=== PATIENT | male | born 1945 | race Caucasian/White ===

== ENCOUNTER → 2018-05-12 16:18 | Outpatient (CLI) | payer MEDICARE, SELFPAY ==
--- NOTE | 2018-05-12 | COLBX_PTH ---
PATIENT: DAFNE OBANDO LOC: [facility] U#:[id number] AGE/SX: 79/M ROOM: RE05/12/[address]: Dr. Andrea Hutchins MD : 1945 BED: DIS: SPEC #: [id number] RECD: 05/12/18 16:00 STATUS: LEX MELQUIADES #: [id number] EDVIN: 05/12/18 00:[address]: Andrea Hutchins DEPT: SURGICAL PATHOLOGY RECD BY: Dallas Wilhelm ENTERED: 05/15/18 10:18 SP TYPE: COLON BX SHELLIE DR: Dr. Kelly Vargas, [facility] Tissues: A - Sigmoid colon biopsy B - Right colon C - Descending colon D - COLON BIOPSY Procedures: Surgery Specimen Level IV HEADER OPERATION: Colonoscopy with polypectomy PRE-OP DIAGNOSIS: Screening/polyps; rule out adenoma TISSUE SUBMITTED: A. Sigmoid polyps, B. Right colon polyps, C. Descending/transverse colon polyps, D. Colon mass biopsies, hepatic flexure MICROSCOPIC DIAGNOSIS A. Sigmoid colon polyps, biopsy: Fragments of tubular adenoma. B. Right colon polyps, biopsy: Fragments of tubular adenoma. C. Descending/transverse colon polyps, biopsy: Fragments of tubular adenoma. Fragments of hyperplastic polyp. D. 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 See Comment. AM:beth 05/16/18 COMMENT C. The findings are consistent with focal high-grade dysplasia. In situ carcinoma cannot be excluded. The focus of high-grade dysplasia is minute. Clinical correlation is suggested. Immunohistochemistry ([id number]) supports the above diagnosis. Case has been reviewed in consultation with Dr. Bingham who concurs with the above diagnosis. IDC:CE MICROSCOPIC DESCRIPTION Slides are reviewed. GROSS DESCRIPTION A - Received in fixative is one container labeled with the patient's name and designated sigmoid polyp. The specimen consists of two irregular fragments of light matthews soft tissue that in aggregate measure 1 x 0.5 x 0.3 cm. The specimen is totally submitted in one cassette. B - Received in fixative is one container labeled with the patient's name and designated right colon polyp. The specimen consists of three irregular fragments of light matthews soft tissue that in aggregate measure 1.2 x 0.6 x 0.3 cm. The larger fragments are bisected and submitted along with the smaller fragment in one cassette. C - Received in fixative is one container labeled with the patient's name and designated descending/ transverse colon polyp. The specimen consists of multiple irregular fragments of light matthews soft tissue that in aggregate measure 1 x 0.5 x 0.2 cm. The largest fragment is bisected and submitted along with the smaller fragments in one cassette. D - Received in fixative is one container labeled with the patient's name and designated mass at hepatic flexure. The specimen consists of multiple irregular fragments of light matthews soft tissue that in aggregate measure 1.2 x 0.6 x 0.1 cm. The specimen is totally submitted in one cassette. / AM:rg 05/15/18 TC:0 CPT: 32922 x4
--- NOTE | 2018-05-12 | IMM_PTH ---
PATIENT: DAFNE OBANDO LOC: [facility] U#:[id number] AGE/SX: 79/M ROOM: RE05/12/[address]: Dr. Andrea Hutchins MD : 1945 BED: DIS: SPEC #: [id number] RECD: 05/17/18 13:09 STATUS: LEX RECourtney #: [id number] EDVIN: 05/12/18 00:[address]: Andrea Hutchins DEPT: IMMUNOHISTOCHEMISTRY RECD BY: Brisa Riggs ENTERED: 05/17/18 13:12 SP TYPE: IMMUNO OTHR DR: Dr. Kelly Vargas, Tissues: D - COLON BIOPSY Procedures: P53 (initial) KI-67 (add) PHYSICIAN & INSTITUTION [place] [id number] SPECIMEN INFORMATION: Tissue Source: D - Colon mass at hepatic flexure, biopsy Clinical Info: Screening / polyps Specimen Number: [id number] CPT code: 57168, 17051 METHODOLOGY: Deparaffinized sections of prefer/formalin-fixed tissue or PAP/DQ stained slides are incubated with monoclonal/polyclonal antibodies/oligonucleotide probes. Localization is made via biotin free immunoperoxidase method. Appropriate controls are performed and reacted as expected. Results on target cell population are indicated in the following table: RESULTS: ANTIBODY / CLONE RESULT Block D P53 (DO-7) positive Ki-67 (30-9) positive These tests were developed and their performance characteristics determined by [facility]. They may not have been cleared or approved by the [place] Food and Drug Administration. The FDA has determined that such clearance or approval is not necessary. INTERPRETATION: D. Colon mass at hepatic flexure, biopsy: Consistent with focal high grade dysplasia. AM:beth 05/18/18
--- OUTSIDE RECORDS SUMMARY | 2018-07-17 07:37 | XMS RPT_ITS | Continuity of Care Document ---
:1945 Author Organization [facility] Address [address] [facility] [address] [place] [address] Phone Care Team Providers Name Role Phone Kelly Vargas DO Unavailable Mamie Clau Unavailable [facility] Unavailable Donaldo Burnham MD Unavailable [facility] Unavailable Luis, SCHUYLER Robb Unavailable Unavailable Long Cherie PAYAN Unavailable Unavailable Gricelda Freitas Unavailable Unavailable Yamila Keller Unavailable Unavailable Unavailable Unavailable Problems Name Dates Details Acute pain of right shoulder (M25.511, 719.41) Status: Active Annual Medicare Phyiscal WITHOUT abnormal findings (Renamed from Encounter for general adult medical examination without abnormal findings) (Z00.00, V70.9) Status: Active BMI 29.0-29.9,adult (Z68.29, V85.25) Status: Active BMI 30.0-30.9,adult (Z68.30, V85.30) Status: Active BMI 33.0-33.9,adult (Z68.33, V85.33) Status: Active Body mass index 30.0-30.9, adult (Z68.30, V85.30) Status: Active Body mass index 33.0-33.9, adult (Z68.33, V85.33) Status: Active Body mass index 33.0-33.9, adult (Renamed from Body mass index (BMI) of 33.0-33.9 in adult) (Z68.33, V85.33) Status: Active Carcinoma in situ of skin, 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, 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) Status: Active Chronic sinusitis, unspecified location (J32.9, 473.9) Status: Active Complex regional pain syndrome type 1 of right lower extremity (G90.521, 337.22) Status: Active Depression, acute (F32.9, 296.20) Comments: stable Status: Active Diabetes mellitus out of control (E11.65, 250.02) Comments: IR score 89 Status: Active Diabetes type II, uncontrolled, renal comp (250.42) Comments: but improving Status: Active Dysmetabolic syndrome X (E88.81, 277.7) Status: Active Encounter for screening for malignant neoplasm of colon (Renamed from Special screening for malignant neoplasms, colon) (Z12.11, V76.51) Comments: cologard ordered Status: Active Encounter for screening for malignant neoplasm of colon (Renamed from Special screening for malignant neoplasms, colon) (Z12.11, V76.51) Status: Active Encounter for screening for malignant neoplasm of prostate (Renamed from Screening for prostate cancer) (Z12.5, V76.44) Comments: [facility] follows lab Status: Active Family history of diabetes mellitus (Z83.3, V18.0) Status: Active Hematuria (R31.9, 599.7) Comments: from chemo with bladder ca tx Status: Active Hypercholesteremia (E78.00, 272.0) Status: Active 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, 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) Status: Active Hypoglycemia (E16.2, 251.2) Status: Active Insomnia (G47.00, 780.52) Comments: i suspect from adrenal taxed -- disucssed dietary adrenal rest - and try wean off klonopin and try otc advil pm / tylenol pm or benadryl first if no work set up appt to disucss more rx vs intergravftive options Status: Active Leg injury, right, subsequent encounter (S89.91XD, V58.89) Status: Active Leukocytosis, unspecified type (D72.829, 288.60) Status: Active Male erectile dysfunction, unspecified (N52.9, 607.84) Status: Active NEED FOR PROPHYLACTIC VACCINATION AND INOCULATION AGAINST INFLUENZA (V04.81) (Renamed from Need for prophylactic vaccination and inoculation against influenza) (Z23, V04.81) Status: Active NEOP, NOS, BLADDER (239.4) Status: Active Non morbid obesity, unspecified obesity type (E66.9, 278.00) Status: Active Non morbid obesity, unspecified obesity type (E66.9, 278.00) Status: Active Non-smoker (Z78.9, V49.89) Status: Active Numbness and tingling of left leg (782.0) Status: Active Nutritional counseling (Z71.3, V65.3) Status: Active Obesity, morbid (E66.01, 278.01) Status: Active Olecranon bursitis of left elbow (M70.22, 726.33) Status: Active Olecranon bursitis, left elbow (M70.22, 726.33) Comments: traumatic -- bloody effusion tapped adn drained - 10CC+ Status: Active Physical exam WITHOUT abnormal findings (Renamed from Encounter for routine adult health examination without abnormal findings) (Z00.00, V70.0) Status: Active Pipe smoker motivated to quit (F17.290, 305.1) Status: Active Stress reaction (F43.0, 308.9) Comments: shut off benefits and have him goijng to pain management and pysch-- he is debilitated and disabled all spiraled from this incident and multiple surgeries - Status: Active Stress reaction (F43.0, 308.9) Comments: support and enc given Status: Active Tobacco abuse counseling (Z71.6, V65.42) Status: Active Tremor (R25.1, 781.0) Comments: BET - Status: Active Type 2 diabetes mellitus, controlled, 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, 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) Status: Active Unspecified Diagnosis Status: Active Vitamin D deficiency (E55.9, 268.9) Status: Active Medications Name Dates Details ASPIRIN EC, 325MG (Oral Tablet Delayed Release) Active 1 qd (325 MG) Easy Touch Insulin Syringe 28G X 1/2 0.5 ML Miscellaneous 1 (one) Misc Misc tid for 30 days Quantity: 100 {Each} Refills: 11 Ordered:25-Sep-2015 Clarisse Smith SCHUYLER Start : 25-Sep-2015 Active Comments:E11.65 EASY TOUCH LANCETS 30G (Miscellaneous) 1 (one) Misc Misc up to qid for 0 days Quantity: 3 {Package} Refills: 3 Ordered:31-Jan-2015 Shamar Vargas DO, DO, Kathleen Start : 31-Jan-2015 Active Comments:E11.65 Easy Touch Test In Vitro Strip 1 (one) Strip Strip up to qid for 0 days Quantity: 120 {Strip} Refills: 0 Ordered:27-Apr-2016 Yamila Keller Start : 27-Apr-2016 Active Comments:E11.65 FINASTERIDE, 5MG (Oral Tablet) 1 qd (5 MG) Active Fish Oil Double Strength 1200 MG Oral Capsule 2 (two) Capsule qd for 360 days Quantity: 810 {Capsule} Refills: 0 Ordered:02-Jun-2017 Shamar Vargas DO, DO, Kathleen Start : 02-Jun-2017 Active Comments:new dose GARLIC OIL, 1000MG (Oral Capsule) 3 qd (1000 MG) Active LYRICA, 100MG (Oral Capsule) uad 1 tid (100 MG) Active MetFORMIN HCl ER 750 MG Oral Tablet Extended Release 24 Hour 1 (one) Tablet ER 24HR tid for 0 days Quantity: 270 {Tablet} Refills: 3 Ordered:19-Dec-2017 Shamar Vargas DO, DO, Kathleen Start : 19-Dec-2017 Active Norvasc 5 MG Oral Tablet 1 Tablet daily for 0 days Quantity: 90 {Tablet} Refills: 3 Ordered:23-Mar-2018 Shamar Vargas DO, DO, Kathleen Start : 23-Mar-2018 Active Nucynta 50 MG Oral Tablet 1 (one) Tablet bid for 30 days Quantity: 60 {Tablet} Refills: 0 Ordered:15-Apr-2017 Audrey PRYOR Daphnie Start : 15-Apr-2017 Active Pen [place] /16 31G X 5 MM Miscellaneous 1 (one) Misc Misc 4times daily for 0 days Quantity: 2 {Box} Refills: 3 Ordered:19-Dec-2015 Shamar Vargas DO, DO, Kathleen Start : 19-Dec-2015 Active Primidone 50 MG Oral Tablet 2 (two) Tablet tid for 0 days Quantity: 270 {Tablet} Refills: 0 Ordered:02-May-2018 Shamar Vargas DO, DO, Kathleen Start : 02-May-2018 Active Simvastatin 80 MG Oral Tablet 1 Tablet qd for 0 days Quantity: 90 {Tablet} Refills: 3 Ordered:14-Mar-2018 Shamar Vargas DO, DO, Kathleen Start : 14-Mar-2018 Active Comments:new dose VIAGRA, 100MG (Oral Tablet) uad Tablet prn for 0 days Quantity: 10 {Tablet} Refills: 3 Ordered:17-May-2013 Shamar Vargas DO, DO, Kathleen Start : 17-May-2013 Active VITAMIN D3, 3000UNIT (Oral Tablet) 2 qd (3000 UNIT) Active Xultophy 100-3.6 UNIT-MG/ML Subcutaneous Solution Pen-injector 35 Unit Unit qd for 0 days Quantity: 3 {Box} Refills: 0 Ordered:30-Jan-2018 Clarisse Smith LPN Start : 09-Jan-2018 Active 1st Tier Unifine Pentips Plus 31G X 6 MM Miscellaneous 1 (one) Misc Misc qd for 0 days Quantity: 1 {Box} Refills: 2 Ordered:22-Dec-2016 UNRULY Lei Start : 30-Apr-2014 End : 22-Dec-2016 Inactive Comments:to be used with his pens victoza and byduren Abilify 2 MG Oral Tablet 1 (one) Tablet Tablet qd for 30 days Refills: 0 Ordered:18-Nov-2016 Cherie Jimenez LPN Start : 13-Sep-2014 End : 18-Nov-2016 Inactive ACTOS, 15MG (Oral Tablet) 1 (one) Tablet qd for 30 days Quantity: 30 {Tablet} Refills: 3 Ordered:21-May-2014 Shamar Vargas DO, DO, Kathleen Start : 21-May-2014 End : 21-May-2014 Inactive Comments:pt has bladder ca Adipex-P 37.5 MG Oral Tablet 1 (one) Tablet qam for 0 days Quantity: 30 {Tablet} Refills: 0 Ordered:26-Feb-2016 Clarisse Smith LPN Start : 25-Sep-2015 End : 26-Feb-2016 Inactive Comments:thirtyBMI 34.5BMI 33.57 Afrezza 4 & 8 & 12 UNIT Inhalation Powder 1 (one) Powder AC for 0 days Quantity: 1 {Box} Refills: 2 Ordered:09-Jan-2018 Shamar Vargas DO, DO, Kathleen Start : 09-Jan-2018 End : 09-Jan-2018 Inactive Comments:bs ac <200 use 4units bs ac 201-250 8 units bs ac 251-300 12 units AMARYL, 1MG (Oral Tablet) 1 Tablet bid for 0 days Quantity: 60 {Tablet} Refills: 4 Ordered:17-May-2013 UNRULY Lei Start : 06-Nov-2010 End : 17-May-2013 Inactive AMARYL, 4MG (Oral Tablet) 1 (one) Tablet bid for 0 days Quantity: 180 {Tablet} Refills: 3 Ordered:10-Apr-2015 Clarisse Smith LPN Start : 13-Sep-2014 End : 10-Apr-2015 Inactive AUGMENTIN, 875-125MG (Oral Tablet) 1 (one) Tablet bid for 0 days Quantity: 20 {Tablet} Refills: 0 Ordered:18-Aug-2015 Clarisse Smith LPN Start : 03-Apr-2015 End : 18-Aug-2015 Inactive AVANDIA, 2MG (Oral Tablet) 1 (one) Tablet qd for 0 days Quantity: 30 {Tablet} Refills: 3 Ordered:12-Apr-2014 Clarisse Smith LPN Start : 11-Apr-2014 End : 12-Apr-2014 Inactive Basaglar KwikPen 100 UNIT/ML Subcutaneous Solution Pen-injector 25 Unit qhs for 30 days Quantity: 1 {Box} Refills: 7 Ordered:01-Jul-2017 Shamar Vargas DO, DO, Kathleen Start : 01-Jul-2017 End : 01-Jul-2017 Inactive Comments:in place of lantus BENZONATATE, 200MG (Oral Capsule) 1 (one) Capsule Capsule qd for 30 days Quantity: 30 {Capsule} Refills: 3 Ordered:18-Aug-2015 Clarisse Smith LPN Start : 03-Apr-2015 End : 18-Aug-2015 Inactive BUTRANS, 10MCG/HR (Transdermal Patch Weekly) 1 Patch Weekly q week for 30 days Refills: 0 Ordered:21-Feb-2014 Clarisse Smith LPN Start : 31-Aug-2012 End : 21-Feb-2014 Inactive CARDURA, 4MG (Oral Tablet) 1 qd (4 MG) Inactive Cefadroxil 500 MG Oral Capsule 1 (one) Capsule bid for 7 days Quantity: 14 {QS} Refills: 0 Ordered:06-Oct-2016 Sharon Ventura CNP Start : 06-Oct-2016 End : 13-Oct-2016 Inactive CLONIDINE HCL, 0.1MG (Oral Tablet) 1 (one) Tablet x 1 for 0 days Refills: 0 Ordered:26-Jun-2007 Clarisse Smith LPN Start : 26-Jun-2007 End : 13-Feb-2009 Inactive Comments:given in office CRESTOR, 10MG (Oral Tablet) 1 (one) Tablet Daily for 0 days Quantity: 30 {Tablet} Refills: 3 Ordered:28-Apr-2009 Clarisse Smith LPN Start : 21-Apr-2009 Inactive Comments:OK for generic Cymbalta 60 MG Oral Capsule Delayed Release Particles 1 (one) Capsule DR Part bid for 30 days Refills: 0 Ordered:15-Apr-2017 Margo Mac Start : 13-Sep-2014 End : 15-Apr-2017 Inactive Doxycycline Monohydrate 100 MG Oral Capsule 1 (one) Capsule Capsule PO Q 12H for 10 days Quantity: 20 {Capsule} Refills: 0 Ordered:27-Sep-2017 Clarisse Smith LPN Start : 27-Sep-2017 End : 07-Oct-2017 Inactive Easy Touch Glucose System w/Device Kit 1 (one) Kit Kit qd for 0 days Quantity: 1 Kit Refills: 0 Ordered:22-Dec-2016 UNRULY Lei Start : 16-Aug-2013 End : 22-Dec-2016 Inactive FreeStyle Lancets Miscellaneous 1 Misc qid for 0 days Quantity: 200 {Unspecified} Refills: 3 Ordered:15-Apr-2017 Margo Mac Start : 17-May-2013 End : 15-Apr-2017 Inactive Comments:DX: 250.2 FreeStyle Lite Test In Vitro Strip 1 Strip qid for 0 days Quantity: 200 {Strip} Refills: 3 Ordered:15-Apr-2017 Margo Mac Start : 17-May-2013 End : 15-Apr-2017 Inactive Comments:250.02 GABAPENTIN, 100MG (Oral Capsule) 1 (one) Capsule Capsule qhs for 5 days then 2 qhs for 5 days then1 am and 2 qhs for 0 days Quantity: 90 {Capsule} Refills: 0 Ordered:13-Sep-2014 Clarisse Smith LPN Start : 11-Apr-2014 End : 13-Sep-2014 Inactive INVOKANA, 100MG (Oral Tablet) 1 (one) Tablet qd for 30 days Quantity: 30 {Tablet} Refills: 3 Ordered:22-May-2014 Clarisse Smith LPN Start : 21-May-2014 End : 22-May-2014 Inactive Comments:inplace of actos KlonoPIN 1 MG Oral Tablet 1 (one) Tablet qhs for 30 days Quantity: 30 {Tablet} Refills: 0 Ordered:15-Apr-2017 Margo Mac Start : 20-Mar-2014 End : 15-Apr-2017 Inactive Lantus SoloStar 100 UNIT/ML Subcutaneous Solution Pen-injector 30 Soln Pen-inj bid for 0 days Quantity: 2 {Box} Refills: 2 Ordered:09-Jan-2018 Shamar Vargas DO, DO, Kathleen Start : 09-Jan-2018 End : 09-Jan-2018 Inactive Comments:new dose-- bc od [address] had samples of others LEVAQUIN, 500MG (Oral Tablet) 1 (one) Tablet Daily for 0 days Quantity: 10 {Tablet} Refills: 0 Ordered:06-Jun-2007 Clarisse Smith LPN Start : 06-Jun-2007 End : 19-Jun-2007 Inactive MORPHINE SULFATE ER, 15MG (Oral Tablet Extended Release) 1 (one) Tablet ER bid for 30 days Refills: 0 Ordered:20-Mar-2014 Clarisse Smith LPN Start : 21-Feb-2014 End : 20-Mar-2014 Inactive MULTI-DAY (Oral Tablet) 1 qd Inactive NovoLOG FlexPen 100 UNIT/ML Subcutaneous Solution Pen-injector 14 Soln Pen-inj immediatlely prior to eating meals tid for 0 days Quantity: 1 {Box} Refills: 3 Ordered:09-Jan-2018 Shamar Vargas DO, DO, Kathleen Start : 09-Jan-2018 End : 09-Jan-2018 Inactive Comments:changed by j[facility]aira 03/29/[facility] Phentermine HCl 37.5 MG Oral Tablet 1 (one) Tablet Tablet qd for 30 days Quantity: 30 {Tablet} Refills: 0 Ordered:27-May-2016 Shamar Vargas DO, DO, Kathleen Start : 27-May-2016 End : 26-Jun-2016 Inactive Comments:BMI 33.91BMI 32thirty PROSCAR, 5MG (Oral Tablet) 1 qd for 0 days Refills: 0 Ordered:17-Mar-2009 Clarisse Smith LPN End : 17-Mar-2009 Inactive TANZEUM, 30MG (Subcutaneous Pen-injector) 30 Milligram Milligram SC once weekly for 0 days Quantity: 1 {Pre-filled_Pen_Syringe} Refills: 5 Ordered:10-Apr-2015 Shamar Vargas DO, DO, Kathleen Start : 10-Apr-2015 End : 10-Apr-2015 Inactive Comments:DX: 250.02NPI: [phone] TRAMADOL HCL, 50MG (Oral Tablet) 1 q 6 hours prn (50 MG) Inactive Tresiba FlexTouch 200 UNIT/ML Subcutaneous Solution Pen-injector 55 Soln Pen-inj qd for 0 days Quantity: 1 {Box} Refills: 0 Ordered:15-Apr-2017 Margo Mac Start : 29-Apr-2016 End : 15-Apr-2017 Inactive VICTOZA, 18MG/3ML (Subcutaneous Solution Pen-injector) tad Soln Pen-inj qd for 0 days Quantity: 1 {Package} Refills: 3 Ordered:20-Mar-2014 Clarisse Smith LPN Start : 20-Mar-2014 End : 20-Mar-2014 Inactive Comments:0.6 sc qd for one week then 1.2 sc qd for one week then 1.8 sc qd Zithromax Z-Jed 250 MG Oral Tablet 1 (one) Tablet Tablet qd for 0 days Quantity: 1 {Package} Refills: 0 Ordered:14-Apr-2016 Rajiv Gomez Start : 08-Jan-2016 End : 14-Apr-2016 Inactive BYDUREON, 2MG (Subcutaneous Suspension Reconstituted) 1 (one) For Suspension For Suspension qweek for 0 days Quantity: 4 Kit Refills: 4 Ordered:26-Dec-2014 SamShamar mcneill DO, DO, Kathleen Start : 26-Dec-2014 End : 26-Dec-2014 Discontinued BYETTA 10 MCG PEN, 10MCG/0.04ML (Subcutaneous Solution Pen-injector) 1 (one) Soln Pen-inj bid for 30 days Quantity: 1 {Package} Refills: 3 Ordered:11-Apr-2014 Shamar Vargas DO, DO, Kathleen Start : 11-Apr-2014 End : 11-Apr-2014 Discontinued Jardiance 25 MG Oral Tablet 1 (one) Tablet qd for 0 days Quantity: 30 {Tablet} Refills: 3 Ordered:08-Sep-2017 Shamar Vargas DO, DO, Kathleen Start : 08-Sep-2017 End : 08-Sep-2017 Discontinued Comments:saw no improvement in sugars Lasix 20 MG Oral Tablet 1 (one) Tablet Tablet qd for 0 days Quantity: 30 {Tablet} Refills: 3 Ordered:06-Oct-2016 Gayle Andres LPN Start : 11-Sep-2015 End : 06-Oct-2016 Discontinued LISINOPRIL, 20MG (Oral Tablet) 1 (one) Tablet daily for 0 days Quantity: 30 {Tablet} Refills: 3 Ordered:10-Aug-2010 Shamar Vargas DO, DO, Kathleen Start : 10-Aug-2010 End : 10-Aug-2010 Discontinued Comments:cough -- rise in cr ? is this the etiology NIASPAN, 500MG (Oral Tablet Extended Release) 1 Tablet ER qd for 0 days Quantity: 90 {Tablet_ER} Refills: 3 Ordered:20-Jun-2009 Shamar Vargas DO, DO, Kathleen Start : 20-Jun-2009 End : 20-Jun-2009 Discontinued NOVOLOG, 100UNIT/ML (Subcutaneous Solution) 5 units each meal for 0 days Quantity: 1 {Box} Refills: 3 Ordered:05-Jun-2015 Daniela Aiken LPN Start : 04-Jun-2015 End : 05-Jun-2015 Discontinued PEN NEEDLES 1/2, 29G X 12MM (Miscellaneous) 4 Misc qd for 0 days Quantity: 2 {Fluid_Ounce} Refills: 3 Ordered:07-Feb-2015 Shamar Vargas DO, DO, Kathleen Start : 07-Feb-2015 End : 07-Feb-2015 Discontinued Comments:dx DM - tests qid PredniSONE 20 MG Oral Tablet 1 (one) Tablet qd for 0 days Quantity: 6 {Tablet} Refills: 0 Ordered:06-Oct-2016 Gayle Andres LPN Start : 20-May-2016 End : 06-Oct-2016 Discontinued Allergies and Adverse Reactions Name Dates Details Lisinopril *ANTIHYPERTENSIVES* Status: Active (Allergy) Comments: cough -- see patient message 4.25.14 No Known Allergies (Allergy) Onset: 12-Feb-2013 Status: Inactive Vicodin (Allergy) Status: Active Comments: sick Past Medical History Name Dates Details Abnormal EKG (R94.31, 794.31) Comments: pt hi risk with dm -- ekg from last visit shows nonspecific st flattening -- but hi risk and multiple surgeries facing him so want to look at heart with all that stres Status: Inactive as of 17-Feb-2017 Abnormal glucose tolerance test (R73.09, 790.22) Status: Inactive as of 26-Dec-2014 Acute bronchitis due to other specified organisms (J20.8, 466.0) Status: Resolved as of 11-Aug-2015 Backache (M54.9, 724.5) Status: Inactive as of 17-Feb-2017 Benign essential hypertension (I10, 401.1) Status: Inactive as of 01-Sep-2011 BMI 30.0-30.9,adult (Z68.30, V85.30) Status: Inactive as of 17-Feb-2017 BMI 32.0-32.9,adult (Z68.32, V85.32) Status: Inactive as of 17-Feb-2017 Burn of lower extremity, right, unspecified degree, initial encounter (T24.001A, 945.00) Comments: plate of yolande on leg3rd degree burn Status: Inactive as of 17-Feb-2017 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, 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) Status: Resolved as of 01-Sep-2011 Chronic kidney disease, stage III (moderate) (N18.3, 585.3) Status: Resolved as of 01-Sep-2011 Cough (R05, 786.2) Status: Resolved as of 30-Dec-2011 Edema extremities (R60.0, 782.3) Status: Resolved as of 27-May-2017 Elevated blood pressure reading (R03.0, 796.2) Status: Inactive as of 09-Jan-2018 Encounter for Medicare annual wellness exam (Z00.00, V70.0) Status: Inactive as of 11-Aug-2015 Hematoma and contusion (T14.8XXA, 924.9) Status: Resolved as of 09-Jan-2018 Hyperkalemia (E87.5, 276.7) Status: Inactive as of 29-Apr-2016 Hypoglycemia (E16.2, 251.2) Status: Inactive as of 29-Apr-2016 Leg injury, right, initial encounter (S89.91XA, 959.7) Status: Resolved as of 03-Oct-2017 Leg injury, right, subsequent encounter (S89.91XD, V58.89) Status: Inactive as of 09-Jan-2018 Limb pain (M79.609, 729.5) Comments: foot pain - other limb pain from compensation -- 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 Status: Inactive as of 04-Jul-2015 Muscle cramps (R25.2, 729.82) Comments: ck lab Status: Inactive as of 04-Jul-2015 Need for vaccination against Streptococcus pneumoniae (Z23, V03.82) Status: Inactive as of 11-Aug-2015 Physical exam WITH abnormal findings (Renamed from Encounter for general adult medical examination with abnormal findings) (Z00.01, V70.0) Status: Inactive as of 11-Aug-2015 Screening PSA (prostate specific antigen) (Z12.5, V76.44) Status: Inactive as of 11-Aug-2015 Sinusitis, acute (J01.90, 461.9) Status: Resolved as of 11-Aug-2015 Wound of right leg (S81.801A, 891.0) Status: Resolved as of 09-Jan-2018 Procedures Procedure Dates Details Bladder cancer sx Completed Comments: 10/03 Bladder sx Completed Comments: Colonoscopy Completed Comments: 05/01 Right tendon sx Completed Comments: Date Value Details 16-Nov-2016 Wound Ctr History AND Physical Result: Comments: See Note; NOTES: [facility] [address] [place] [address] Wound Ctr History AND Physical 07/25/17 1656 MR#: [id number] Acct: [id number] Name: PERRY ROCA Rep #: [id number] : 1945 71 From: Juan J Edwards MD PCP: Kelly Vargas DO Status: REG RCR Y Location: WC (1) Burn of thigh Status: Acute Current Visit: Yes Qualifiers: Encounter type: initial encounter Laterality: right Code(s): T24.019A - BURN OF UNSPECIFIED DEGREE OF UNSPECIFIED THIGH, INIT ENCNTR (2) BPH (benign prostatic hyperplasia) Status: Chronic Current Visit: No (3) Hyperlipemia Status: Chronic Current Visit: No Code(s): E78.5 - HYPERLIPIDEMIA, UNSPECIFIED (4) Hypertension Status: Chronic Current Visit: No Qualifiers: Hypertension type: essential hypertension Qual ified Code(s): I10 - Essential (primary) hypertension Code(s): I10 - ESSENTIAL (PRIMARY) HYPERTENSION (5) Type II diabetes mellitus Status: Chronic Current Visit: No Code(s): E11.9 - TYPE 2 DIABETES ME LLITUS WITHOUT COMPLICATIONS (6) Tobacco abuse Status: Chronic Current Visit: Yes Code(s): Z72.0 - TOBACCO USE (7) Tobacco abuse counseling Status: Chronic Current Visit: Yes Code(s): Z71.6 - TOBACCO ABUSE COUNSELING History of Present Illness Date of Service: 11/16/16 Chief Complaint: Burn wound to the right thigh History of Wound: Patient is a very pleasant 71-year-old male who is here for follow -up evaluation and treatment of burn wound to his right thigh. This occurred approximately 7 weeks ago. He has been treating it with collagen hydrogel and Adaptic in recent weeks. He had a reactive cell ulitis that was treated with an antibiotic, which resolved. The patient has shown good progress, and the thermal burn to the right upper thigh is now completely healed and epithelialized. 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 Allergies/Adverse Reactions: All ergies Sulfa (Sulfonamide Antibiotics) Allergy (Verified 11/13/13 18:04) Hives acetaminophen [From Vicodin] Adverse Reaction (Verified 02/03/15 14:00) Nausea hydrocodone bitartrate [From Vicodin] Adver se Reaction (Verified 02/03/15 14:00) Nausea topiramate [From Topamax] Adverse Reaction (Verified 11/13/13 18:04) memory loss Home Medications: Ambulatory Orders Medication Instruct ions Recorded Amlodipine [Norvasc] 5 mg PO DAILY 11/10/13 Finasteride 5 mg PO DAILY 11/10/13 Metformin HCl [Metformin HCl ER] 750 mg PO TID 11/10/13 Simvastatin 40 mg PO DAILY 11/10/13 Aspirin 325 mg P O DAILY@0800 11/11/13 Ibuprofen [Motrin] 800 mg PO BID 11/11/13 Duloxetine Hcl [Cymbalta] 60 mg PO DAILY 02/03/15 Insulin Lispro [Humalog Kwikpen] 10 unit SQ TID 02/03/15 Primidone [Mysoline] 100 mg PO TID 02/03/15 Aripiprazole [Abilify] 2 mg PO DAILY 10/12/16 Cholecalciferol (Vitamin D3) 3,000 unit PO BID 10/12/16 [Vitamin D3] Clonazepam [Klonopin] 1 mg PO QHS 10/12/16 Fish Oil/Dha/Epa [Fish Oil 1, 200 1 each PO BID 10/12/16 mg Fish Oil] Garlic 3,000 mg PO DAILY 10/12/16 Insulin Degludec [Tresiba 55 unit SQ DAILY 10/12/16 Flextouch U-200] Insulin Glargine [Lantus (BKC)] 45 units SC QHS 10/12/16 P regabalin [Lyrica] 100 mg PO TID 10/12/16 Tapentadol HCl [Nucynta] 100 mg PO BID 10/12/16 - Family History Maternal No pertinent history Paternal No pertinent history Sibling No pertinent history Smoking Status: Current every day smoker Tobacco Use: Pipe Review of Systems Constitutional: Denies: Chills, Fever, Weight Change Eyes: Denies: Pain, Vision Change HEENT: Denies: Difficulty Hea ring, Difficulty Swallowing, Sinus Congestion Cardiovascular: Denies: Chest Pain, Palpitations Respiratory: Denies: Cough, Shortness of Breath Gastrointestinal: Denies: Diarrhea, Nausea, Vomiting Genito urinary: Denies: Dysuria, Hematuria Endocrine: Denies: Heat/ Cold Intolerance, Polydipsia, Polyuria Hematologic/ Lymphatic: Denies: Easy Bruising, Easy Bleeding - Physical Exam Vital Signs Temp Pulse Resp BP Pulse Ox 97.8 F 85 18 156/97 11/16/16 16:26 11/16/16 16:26 11/16/16 16:26 11/16/16 16:26 General: Alert, Oriented x3, Cooperative, No apparent distress, Well developed, Well nourished HEENT: A traumatic, PERRLA, EOMI, Normocephalic Oral: Moist Mucosa Neck: No JVD Lungs: Normal air movement Abdomen: Non-Distended, Obese Extremities: No clubbing, No cyanosis, No edema, No Calf Tenderness, - - T he burn wound on the right thigh is now completely healed and epithelialized. There is no sign of infection or cellulitis. Skin: No rashes, No breakdown Wound Measurements and Assessment WC - Nurse 1 - General Ulcer Measurement Start: 11/02/16 08:39 Freq: Status: Active Activity Type Activity Date Activity User E-Sign Co-Sign Detail Recorded Client Recorded Date Recorded By Document 11/16/16 16:26 DL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 There is osseous productivity extending into the axillary recess. There is mild narrowing of the acromiohumeral space. Normal acromioclav icular joint. Normal acromion. There is no acute fracture, dislocation or destructive osseous pathology. There is flattening of the humeral head with sclerosis secondary to arthrosis. The soft tissue structures are unremarkable. Normal visualized pulmonary apex. RAD/Shoulder min 2 Views IMPRESSION: Degenerative changes of the right shoulder. 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 ABNORMAL 06-Feb-2015 Emergency Department Summary Result: Comments: See Note; NOTES: [facility] Medical Records Department [address] [place] [address] Emergency Department Summary MR#: [id number] Acct: [id number] Name: PERRY CLARK Rep #: [id number] : 1945 69 From: Ralph Jimenez MD PCP: Kelly Vargas DO Status: DEP ER DATE OF SERVICE: 02/03/2015 METHOD OF ARRIVAL: By private car. CHIEF COMPLAIN T: Right hand injury. PRIMARY CARE: Dr. Vargas JANE HISTORY: A 69-year-old male with history of hypertension, diabetic, high cholesterol, bladder cancer in 2012 is in remission. The patient comes in with right hand injury. This occurred just prior to arrival. 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 He is right handed. Tetanus is unknown. Denies any other injuries. REVIEW OF SYSTEMS: Otherwise un remarkable. PHYSICAL EXAMINATION: VITAL SIGNS: Stable. Afebrile. EXTREMITIES: Jane physical exam, right hand, the patient has a skin avulsion over the second MCP joint. The tendon is exposed. There does appear to be abraded tendon, but no tendon laceration. He still has full function. He is neurovascularly intact with no bony tenderness. EMERGENCY DEPARTMENT COURSE: The patient received a tet anus update. I did give him Keflex. I did not believe x-ray was indicated. He did not have any bony tenderness and there was no bone exposed. The patient had his wound prepped and draped in usual ster ile fashion with 1% lidocaine for local anesthesia. The patient did have the skin closed to close the exposed tendon. This was done with three 4-0 nylon sutures ____ skin involving about 1.5 cm. At th is time, plan will be to home. He will be encouraged to follow up with Dr. Chang, who is on for orthopedics. CLINICAL IMPRESSION: 1. Skin avulsion, right hand. 2. Minor tendon injury. DISPOSITI ON: Home. MD Clau Turner C: Kelly Arriaga DO T: NTS JOB: [id number] 02/06/15 0829 <Electronically signed by Ralph Jimenez MD> Date Ralph Jimenez MD Cosigner Signature (If Indicated): Date CC: Kelly Vargas DO; Ralph Chang DO Date Dictat ed: 02/03/151523 Date Transcribed: 02/03/151523 Box Storage Worker: Signed 03-Feb-2015 Discharge Instruction Result: Comments: See Note; NOTES: [facility] Medical Records Department [address] [place] [address] Discharge Instruction 02/03/151519 MR#: [id number] Acct: [id number] Name: PERRY CLARK Rep #: [id number] : 1945 69 From: Ralph Jimenez MD PCP: Kelly Vargas DO Status: REG ER ED Disposition - Plan for ED Patient: Disposition: Home or Assisted Jane ing Chief Complaint: Laceration Instructions: ED EXTREMITY LACERATION, ED Laceration, Tendon Prescriptions: Cephalexin [Keflex] 500 mg PO Q6 #40 capsule Referrals: Kelly Vargas DO [Primary Car e Provider] - Ralph Chang DO [STAFF PHYSICIAN] - 10-14 Days suture removal Additional Instructions: follow up with Dr Chang. return with problems. watch for infection. sutures out in 10-14 days . What to do if you have Problems For any increased pain, shortness of breath, bleeding, nausea or vomiting, chest pain, or any unexpected problems, contact your doctor. Call [facility] ) or report to the closest Emergency Room. Call 911 if necessary. 02/03/15 1521 <Electronically signed by Ralph Jimenez MD> Date Ralph Baldwinignandrei Signature (If Indicated): Date CC: Kelly Vargas DO Immunization Name Dates Details Influenza (3 years and up) on: Jan-2017 Comments: given at other facility Family History Unknown Family Member Name Dates Details First Degree Relatives Comments: DM, Heart/Lung dx Status: Active Social History Name Dates Details Alcohol Use Comments: Occasional alcohol use Status: Active Caffeine Use Comments: qd Status: Active Exercise History Comments: Inactive Status: Active Living Situation Comments: Lives with spouse Status: Active 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, 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, 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 No Drug Use Status: Active Pets/Animals Comments: Dog Status: Active Tobacco Use Comments: Smokes a pipe intermittently Status: Active Vital Signs Date Test Result Details :47 Pulse 99 /min Comments: Pattern: Regular Respiration Rate 18 /min Comments: Pattern: Unlabored O2 SAT 94 % Comments: Room air BP Systolic 128 mm[Hg] Comments: Patient Position: Sitting; Cuff Location: Left Arm; Cuff Size: Large BP Diastolic 84 mm[Hg] Comments: Patient Position: Sitting; Cuff Location: Left Arm; Cuff Size: Large Weight 191.375 lb Height 68 in Body Mass Index Calculated 29.1 kg/m2 Body Surface Area Calculated 2.01 m2 :02 Pulse 87 /min Comments: Pattern: Regular Respiration Rate 18 /min Comments: Pattern: Unlabored O2 SAT 98 % Comments: Room air BP Systolic 132 mm[Hg] Comments: Patient Position: Sitting; Cuff Location: Left Arm; Cuff Size: Large BP Diastolic 88 mm[Hg] Comments: Patient Position: Sitting; Cuff Location: Left Arm; Cuff Size: Large Weight 191.375 lb Height 68 in Body Mass Index Calculated 29.1 kg/m2 Body Surface Area Calculated 2.01 m2 :16 Temperature 98.2 f Comments: Method: Temporal Pulse 72 /min Comments: Pattern: Regular Respiration Rate 16 /min Comments: Pattern: Unlabored O2 SAT 98 % Comments: Room air BP Systolic 136 mm[Hg] Comments: Patient Position: Sitting; Cuff Location: Left Arm; Cuff Size: Standard BP Diastolic 72 mm[Hg] Comments: Patient Position: Sitting; Cuff Location: Left Arm; Cuff Size: Standard Weight 200 lb Height 68 in Body Mass Index Calculated 30.41 kg/m2 Body Surface Area Calculated 2.04 m2 :21 Pulse 78 /min Comments: Pattern: Regular Respiration Rate 18 /min Comments: Pattern: Unlabored O2 SAT 92 % Comments: Room air BP Systolic 132 mm[Hg] Comments: Patient Position: Sitting; Cuff Location: Left Arm; Cuff Size: Large BP Diastolic 80 mm[Hg] Comments: Patient Position: Sitting; Cuff Location: Left Arm; Cuff Size: Large Weight 200 lb Height 68 in Body Mass Index Calculated 30.41 kg/m2 Body Surface Area Calculated 2.04 m2 :59 Temperature 97.6 f Pulse 62 /min Comments: Pattern: Regular Respiration Rate 16 /min Comments: Pattern: Unlabored O2 SAT 94 % Comments: Room air BP Systolic 152 mm[Hg] Comments: Patient Position: Sitting; Cuff Location: Left Arm; Cuff Size: Standard BP Diastolic 82 mm[Hg] Comments: Patient Position: Sitting; Cuff Location: Left Arm; Cuff Size: Standard Weight 200 lb Height 68 in Body Mass Index Calculated 30.41 kg/m2 Body Surface Area Calculated 2.04 m2 :24 Pulse 83 /min Comments: Pattern: Regular Respiration Rate 18 /min Comments: Pattern: Unlabored O2 SAT 94 % Comments: Room air BP Systolic 142 mm[Hg] Comments: Patient Position: Sitting; Cuff Location: Left Arm; Cuff Size: Large BP Diastolic 80 mm[Hg] Comments: Patient Position: Sitting; Cuff Location: Left Arm; Cuff Size: Large Weight 200 lb Height 68 in Body Mass Index Calculated 30.41 kg/m2 Body Surface Area Calculated 2.04 m2 :53 Pulse 73 /min Comments: Pattern: Regular Respiration Rate 18 /min Comments: Pattern: Unlabored O2 SAT 94 % Comments: Room air BP Systolic 138 mm[Hg] Comments: Patient Position: Sitting; Cuff Location: Left Arm; Cuff Size: Large BP Diastolic 92 mm[Hg] Comments: Patient Position: Sitting; Cuff Location: Left Arm; Cuff Size: Large Weight 196 lb Height 68 in Body Mass Index Calculated 29.8 kg/m2 Body Surface Area Calculated 2.03 m2 [id number] Pulse 81 /min Comments: Pattern: Regular Respiration Rate 18 /min Comments: Pattern: Unlabored O2 SAT 98 % Comments: Room air BP Systolic 128 mm[Hg] Comments: Patient Position: Sitting; Cuff Location: Left Arm; Cuff Size: Large BP Diastolic 88 mm[Hg] Comments: Patient Position: Sitting; Cuff Location: Left Arm; Cuff Size: Large Weight 196 lb Height 68 in Body Mass Index Calculated 29.8 kg/m2 Body Surface Area Calculated 2.03 m2 :08 Pulse 88 /min Comments: Pattern: Regular Respiration Rate 18 /min Comments: Pattern: Unlabored O2 SAT 93 % Comments: Room air BP Systolic 118 mm[Hg] Comments: Patient Position: Sitting; Cuff Location: Left Arm; Cuff Size: Large BP Diastolic 70 mm[Hg] Comments: Patient Position: Sitting; Cuff Location: Left Arm; Cuff Size: Large Weight 196 lb Height 68 in Body Mass Index Calculated 29.8 kg/m2 Body Surface Area Calculated 2.03 m2 :02 Pulse 94 /min Comments: Pattern: Regular Respiration Rate 18 /min Comments: Pattern: Unlabored O2 SAT 94 % Comments: Room air BP Systolic 124 mm[Hg] Comments: Patient Position: Sitting; Cuff Location: Left Arm; Cuff Size: Large BP Diastolic 82 mm[Hg] Comments: Patient Position: Sitting; Cuff Location: Left Arm; Cuff Size: Large Weight 196 lb Height 68 in Body Mass Index Calculated 29.8 kg/m2 Body Surface Area Calculated 2.03 m2 :21 Temperature 97.8 f Comments: Method: Tympanic Pulse 88 /min Comments: Pattern: Regular Respiration Rate 18 /min Comments: Pattern: Unlabored O2 SAT 97 % Comments: Room air BP Systolic 158 mm[Hg] Comments: Patient Position: Sitting; Cuff Location: Left Arm; Cuff Size: Standard BP Diastolic 62 mm[Hg] Comments: Patient Position: Sitting; Cuff Location: Left Arm; Cuff Size: Standard Weight 199 lb Height 68 in Body Mass Index Calculated 30.26 kg/m2 Body Surface Area Calculated 2.04 m2 :58 Pulse 91 /min Comments: Pattern: Regular Respiration Rate 16 /min Comments: Pattern: Unlabored O2 SAT 94 % Comments: Room air BP Systolic 118 mm[Hg] Comments: Patient Position: Sitting; Cuff Location: Left Arm; Cuff Size: Standard BP Diastolic 72 mm[Hg] Comments: Patient Position: Sitting; Cuff Location: Left Arm; Cuff Size: Standard Weight 199 lb Height 68 in Body Mass Index Calculated 30.26 kg/m2 Body Surface Area Calculated 2.04 m2 :04 Temperature 97 f Comments: Method: Temporal Pulse 90 /min Comments: Pattern: Regular Respiration Rate 18 /min Comments: Pattern: Unlabored O2 SAT 95 % Comments: Room air BP Systolic 144 mm[Hg] Comments: Patient Position: Sitting; Cuff Location: Left Arm; Cuff Size: Large BP Diastolic 66 mm[Hg] Comments: Patient Position: Sitting; Cuff Location: Left Arm; Cuff Size: Large Weight 197 lb Height 68 in Body Mass Index Calculated 29.95 kg/m2 Body Surface Area Calculated 2.03 m2 :35 Pulse 83 /min Comments: Pattern: Regular Respiration Rate 16 /min Comments: Pattern: Unlabored O2 SAT 98 % Comments: Room air BP Systolic 130 mm[Hg] Comments: Patient Position: Sitting; Cuff Location: Left Arm; Cuff Size: Standard BP Diastolic 78 mm[Hg] Comments: Patient Position: Sitting; Cuff Location: Left Arm; Cuff Size: Standard Weight 199 lb Height 68 in Body Mass Index Calculated 30.26 kg/m2 Body Surface Area Calculated 2.04 m2 :59 Pulse 77 /min Comments: Pattern: Regular Respiration Rate 18 /min Comments: Pattern: Unlabored O2 SAT 98 % Comments: Room air BP Systolic 128 mm[Hg] Comments: Patient Position: Sitting; Cuff Location: Left Arm; Cuff Size: Large BP Diastolic 82 mm[Hg] Comments: Patient Position: Sitting; Cuff Location: Left Arm; Cuff Size: Large Weight 202 lb Height 68 in Body Mass Index Calculated 30.71 kg/m2 Body Surface Area Calculated 2.05 m2 :56 Temperature 97.5 f Pulse 92 /min Comments: Pattern: Regular Respiration Rate 16 /min Comments: Pattern: Unlabored O2 SAT 95 % Comments: Room air BP Systolic 142 mm[Hg] Comments: Patient Position: Sitting; Cuff Location: Left Arm; Cuff Size: Standard BP Diastolic 86 mm[Hg] Comments: Patient Position: Sitting; Cuff Location: Left Arm; Cuff Size: Standard Weight 202 lb Height 68 in Body Mass Index Calculated 30.71 kg/m2 Body Surface Area Calculated 2.05 m2 :38 Temperature 98 f Comments: Method: Oral Pulse 84 /min Comments: Pattern: Regular Respiration Rate 16 /min Comments: Pattern: Unlabored O2 SAT 98 % Comments: Room air BP Systolic 140 mm[Hg] Comments: Patient Position: Sitting; Cuff Location: Left Arm; Cuff Size: Standard BP Diastolic 80 mm[Hg] Comments: Patient Position: Sitting; Cuff Location: Left Arm; Cuff Size: Standard Weight 212 lb Height 68 in Body Mass Index Calculated 32.23 kg/m2 Body Surface Area Calculated 2.1 m2 :37 Pulse 80 /min Comments: Pattern: Regular Respiration Rate 18 /min Comments: Pattern: Unlabored O2 SAT 94 % Comments: Room air BP Systolic 142 mm[Hg] Comments: Patient Position: Sitting; Cuff Location: Left Arm; Cuff Size: Standard BP Diastolic 82 mm[Hg] Comments: Patient Position: Sitting; Cuff Location: Left Arm; Cuff Size: Standard Weight 223 lb Height 68 in Body Mass Index Calculated 33.91 kg/m2 Body Surface Area Calculated 2.14 m2 :20 Pulse 95 /min Comments: Pattern: Regular Respiration Rate 18 /min Comments: Pattern: Unlabored O2 SAT 94 % Comments: Room air BP Systolic 128 mm[Hg] Comments: Patient Position: Sitting; Cuff Location: Left Arm; Cuff Size: Large BP Diastolic 82 mm[Hg] Comments: Patient Position: Sitting; Cuff Location: Left Arm; Cuff Size: Large Weight 223 lb Height 68 in Body Mass Index Calculated 33.91 kg/m2 Body Surface Area Calculated 2.14 m2 :34 Temperature 98 f Pulse 67 /min Comments: Pattern: Regular O2 SAT 96 % Comments: Room air BP Systolic 130 mm[Hg] Comments: Patient Position: Sitting; Cuff Location: Left Arm; Cuff Size: Standard BP Diastolic 64 mm[Hg] Comments: Patient Position: Sitting; Cuff Location: Left Arm; Cuff Size: Standard Weight 223 lb Height 68 in Body Mass Index Calculated 33.91 kg/m2 Body Surface Area Calculated 2.14 m2 :02 Comments: [facility] Pulse 81 /min Comments: Pattern: Regular Respiration Rate 18 /min Comments: Pattern: Unlabored O2 SAT 95 % Comments: Room air BP Systolic 128 mm[Hg] Comments: Patient Position: Sitting; Cuff Location: Left Arm; Cuff Size: Large BP Diastolic 84 mm[Hg] Comments: Patient Position: Sitting; Cuff Location: Left Arm; Cuff Size: Large Weight 220 lb Height 68 in Body Mass Index Calculated 33.45 kg/m2 Body Surface Area Calculated 2.13 m2 :30 Pulse 80 /min Comments: Pattern: Regular Respiration Rate 18 /min Comments: Pattern: Unlabored O2 SAT 97 % Comments: Room air BP Systolic 122 mm[Hg] Comments: Patient Position: Sitting; Cuff Location: Left Arm; Cuff Size: Large BP Diastolic 82 mm[Hg] Comments: Patient Position: Sitting; Cuff Location: Left Arm; Cuff Size: Large Weight 218 lb Height 68 in Body Mass Index Calculated 33.15 kg/m2 Body Surface Area Calculated 2.12 m2 :48 Temperature 96.6 f Comments: Method: Temporal Pulse 70 /min Comments: Pattern: Regular Respiration Rate 16 /min Comments: Pattern: Unlabored BP Systolic 128 mm[Hg] Comments: Patient Position: Sitting; Cuff Location: Left Arm; Cuff Size: Standard BP Diastolic 78 mm[Hg] Comments: Patient Position: Sitting; Cuff Location: Left Arm; Cuff Size: Standard Weight 220.8 lb Height 68 in Body Mass Index Calculated 33.57 kg/m2 Body Surface Area Calculated 2.13 m2 :30 Pulse 79 /min Comments: Pattern: Regular Respiration Rate 18 /min Comments: Pattern: Unlabored O2 SAT 97 % Comments: Room air BP Systolic 128 mm[Hg] Comments: Patient Position: Sitting; Cuff Location: Left Arm; Cuff Size: Large BP Diastolic 82 mm[Hg] Comments: Patient Position: Sitting; Cuff Location: Left Arm; Cuff Size: Large Weight 227.375 lb Height 68 in Body Mass Index Calculated 34.57 kg/m2 Body Surface Area Calculated 2.16 m2 :43 Pulse 73 /min Comments: Pattern: Regular Respiration Rate 20 /min Comments: Pattern: Unlabored O2 SAT 95 % Comments: Room air BP Systolic 138 mm[Hg] Comments: Patient Position: Sitting; Cuff Location: Left Arm; Cuff Size: Large BP Diastolic 80 mm[Hg] Comments: Patient Position: Sitting; Cuff Location: Left Arm; Cuff Size: Large Weight 236 lb Height 68 in Body Mass Index Calculated 35.88 kg/m2 Body Surface Area Calculated 2.19 m2 :02 Pulse 72 /min Comments: Pattern: Regular Respiration Rate 18 /min Comments: Pattern: Unlabored O2 SAT 96 % Comments: Room air BP Systolic 130 mm[Hg] Comments: Patient Position: Sitting; Cuff Location: Left Arm; Cuff Size: Large BP Diastolic 80 mm[Hg] Comments: Patient Position: Sitting; Cuff Location: Left Arm; Cuff Size: Large Weight 236.375 lb Height 68 in Body Mass Index Calculated 35.94 kg/m2 Body Surface Area Calculated 2.19 m2 :16 Pulse 80 /min Comments: Pattern: Regular Respiration Rate 20 /min Comments: Pattern: Unlabored O2 SAT 98 % Comments: Room air BP Systolic 128 mm[Hg] Comments: Patient Position: Sitting; Cuff Location: Left Arm; Cuff Size: Large BP Diastolic 82 mm[Hg] Comments: Patient Position: Sitting; Cuff Location: Left Arm; Cuff Size: Large Weight 230.25 lb Height 68 in Body Mass Index Calculated 35.01 kg/m2 Body Surface Area Calculated 2.17 m2 :08 Temperature 97.1 f Comments: Method: Temporal Pulse 97 /min Comments: Pattern: Regular Respiration Rate 18 /min Comments: Pattern: Unlabored O2 SAT 92 % Comments: Room air BP Systolic 138 mm[Hg] Comments: Patient Position: Sitting; Cuff Location: Left Arm; Cuff Size: Large BP Diastolic 76 mm[Hg] Comments: Patient Position: Sitting; Cuff Location: Left Arm; Cuff Size: Large Weight 225.25 lb Height 68 in Body Mass Index Calculated 34.25 kg/m2 Body Surface Area Calculated 2.15 m2 :39 Pulse 73 /min Comments: Pattern: Regular Respiration Rate 20 /min Comments: Pattern: Unlabored O2 SAT 94 % Comments: Room air BP Systolic 124 mm[Hg] Comments: Patient Position: Sitting; Cuff Location: Left Arm; Cuff Size: Large BP Diastolic 80 mm[Hg] Comments: Patient Position: Sitting; Cuff Location: Left Arm; Cuff Size: Large Weight 222.8 lb Height 68 in Body Mass Index Calculated 33.88 kg/m2 Body Surface Area Calculated 2.14 m2 :19 Pulse 74 /min Comments: Pattern: Regular Respiration Rate 20 /min Comments: Pattern: Unlabored O2 SAT 95 % Comments: Room air BP Systolic 118 mm[Hg] Comments: Patient Position: Sitting; Cuff Location: Left Arm; Cuff Size: Standard BP Diastolic 80 mm[Hg] Comments: Patient Position: Sitting; Cuff Location: Left Arm; Cuff Size: Standard Weight 222.8 lb Height 68 in Body Mass Index Calculated 33.88 kg/m2 Body Surface Area Calculated 2.14 m2 :50 Pulse 73 /min Comments: Pattern: Regular Respiration Rate 18 /min Comments: Pattern: Unlabored O2 SAT 98 % Comments: Room air BP Systolic 138 mm[Hg] Comments: Patient Position: Sitting; Cuff Location: Left Arm; Cuff Size: Large BP Diastolic 82 mm[Hg] Comments: Patient Position: Sitting; Cuff Location: Left Arm; Cuff Size: Large Weight 222.8 lb Height 68 in Body Mass Index Calculated 33.88 kg/m2 Body Surface Area Calculated 2.14 m2 :10 Temperature 97.8 f Comments: Method: Temporal Pulse 72 /min Comments: Pattern: Regular Respiration Rate 16 /min Comments: Pattern: Unlabored O2 SAT 98 % Comments: Room air BP Systolic 128 mm[Hg] Comments: Patient Position: Sitting; Cuff Location: Left Arm; Cuff Size: Standard BP Diastolic 80 mm[Hg] Comments: Patient Position: Sitting; Cuff Location: Left Arm; Cuff Size: Standard Weight 222.8 lb Height 68 in Body Mass Index Calculated 33.88 kg/m2 Body Surface Area Calculated 2.14 m2 :59 Temperature 97.6 f Comments: Method: Temporal Pulse 86 /min Comments: Pattern: Regular Respiration Rate 17 /min Comments: Pattern: Unlabored O2 SAT 96 % Comments: Room air BP Systolic 126 mm[Hg] Comments: Patient Position: Sitting; Cuff Location: Left Arm; Cuff Size: Standard BP Diastolic 80 mm[Hg] Comments: Patient Position: Sitting; Cuff Location: Left Arm; Cuff Size: Standard Weight 221 lb Height 68 in Body Mass Index Calculated 33.6 kg/m2 Body Surface Area Calculated 2.13 m2 :37 Pulse 87 /min Comments: Pattern: Regular Respiration Rate 18 /min Comments: Pattern: Unlabored O2 SAT 97 % Comments: Room air BP Systolic 118 mm[Hg] Comments: Patient Position: Sitting; Cuff Location: Left Arm; Cuff Size: Large BP Diastolic 78 mm[Hg] Comments: Patient Position: Sitting; Cuff Location: Left Arm; Cuff Size: Large Weight 219 lb Height 68 in Body Mass Index Calculated 33.3 kg/m2 Body Surface Area Calculated 2.12 m2 :07 Pulse 84 /min Comments: Pattern: Regular Respiration Rate 18 /min Comments: Pattern: Unlabored O2 SAT 97 % Comments: Room air BP Systolic 128 mm[Hg] Comments: Patient Position: Standing; Cuff Location: Left Arm; Cuff Size: Large BP Diastolic 84 mm[Hg] Comments: Patient Position: Standing; Cuff Location: Left Arm; Cuff Size: Large Weight 218.375 lb :27 Pulse 86 /min Comments: Pattern: Regular Respiration Rate 20 /min Comments: Pattern: Unlabored O2 SAT 94 % Comments: Room air BP Systolic 138 mm[Hg] Comments: Patient Position: Sitting; Cuff Location: Left Arm; Cuff Size: Large BP Diastolic 82 mm[Hg] Comments: Patient Position: Sitting; Cuff Location: Left Arm; Cuff Size: Large Weight 218.375 lb :04 Temperature 95.9 f Comments: Method: Oral Pulse 83 /min Comments: Pattern: Regular Respiration Rate 18 /min Comments: Pattern: Unlabored O2 SAT 98 % Comments: Room air BP Systolic 122 mm[Hg] Comments: Patient Position: Sitting; Cuff Location: Left Arm; Cuff Size: Large BP Diastolic 80 mm[Hg] Comments: Patient Position: Sitting; Cuff Location: Left Arm; Cuff Size: Large Weight 218.375 lb :19 Comments: hearing [facility] and had glaucoma test done Pulse 78 /min Comments: Pattern: Regular Respiration Rate 20 /min Comments: Pattern: Unlabored O2 SAT 98 % Comments: Room air BP Systolic 138 mm[Hg] Comments: Patient Position: Sitting; Cuff Location: Left Arm; Cuff Size: Large BP Diastolic 84 mm[Hg] Comments: Patient Position: Sitting; Cuff Location: Left Arm; Cuff Size: Large Weight 217.1875 lb :00 Temperature 98.3 f Comments: Method: Temporal Pulse 78 /min Comments: Pattern: Regular Respiration Rate 16 /min Comments: Pattern: Unlabored O2 SAT 98 % Comments: Room air BP Systolic 128 mm[Hg] Comments: Patient Position: Sitting; Cuff Location: Left Arm; Cuff Size: Standard BP Diastolic 78 mm[Hg] Comments: Patient Position: Sitting; Cuff Location: Left Arm; Cuff Size: Standard Weight 218 lb :04 Temperature 97.6 f Comments: Method: Oral Pulse 70 /min Comments: Pattern: Regular Respiration Rate 18 /min Comments: Pattern: Unlabored BP Systolic 120 mm[Hg] Comments: Patient Position: Sitting; Cuff Location: Left Arm; Cuff Size: Large BP Diastolic 82 mm[Hg] Comments: Patient Position: Sitting; Cuff Location: Left Arm; Cuff Size: Large Weight 219 lb :58 Temperature 98.3 f Comments: Method: Oral Pulse 64 /min Comments: Pattern: Regular Respiration Rate 20 /min Comments: Pattern: Unlabored BP Systolic 124 mm[Hg] Comments: Patient Position: Sitting; Cuff Location: Left Arm; Cuff Size: Large BP Diastolic 78 mm[Hg] Comments: Patient Position: Sitting; Cuff Location: Left Arm; Cuff Size: Large Weight 223.5625 lb Height 68 in Body Mass Index Calculated 33.99 kg/m2 Body Surface Area Calculated 2.14 m2 :15 Temperature 96.8 f Comments: Method: Oral Pulse 60 /min Comments: Pattern: Regular Respiration Rate 18 /min Comments: Pattern: Unlabored BP Systolic 122 mm[Hg] Comments: Patient Position: Sitting; Cuff Location: Left Arm; Cuff Size: Large BP Diastolic 80 mm[Hg] Comments: Patient Position: Sitting; Cuff Location: Left Arm; Cuff Size: Large Weight 227.5 lb Height 68 in Body Mass Index Calculated 34.59 kg/m2 Body Surface Area Calculated 2.16 m2 :04 Temperature 98 f Comments: Method: Oral Pulse 68 /min Comments: Pattern: Regular Respiration Rate 20 /min Comments: Pattern: Unlabored BP Systolic 122 mm[Hg] Comments: Patient Position: Sitting; Cuff Location: Left Arm; Cuff Size: Large BP Diastolic 78 mm[Hg] Comments: Patient Position: Sitting; Cuff Location: Left Arm; Cuff Size: Large Weight 236.25 lb Height 68 in Body Mass Index Calculated 35.92 kg/m2 Body Surface Area Calculated 2.19 m2 :24 Temperature 97.7 f Comments: Method: Oral Pulse 68 /min Comments: Pattern: Regular Respiration Rate 20 /min Comments: Pattern: Unlabored BP Systolic 128 mm[Hg] Comments: Patient Position: Sitting; Cuff Location: Left Arm; Cuff Size: Large BP Diastolic 88 mm[Hg] Comments: Patient Position: Sitting; Cuff Location: Left Arm; Cuff Size: Large Weight 235 lb Height 68 in Body Mass Index Calculated 35.73 kg/m2 Body Surface Area Calculated 2.19 m2 :58 Pulse 60 /min Comments: Pattern: Regular Respiration Rate 18 /min Comments: Pattern: Unlabored BP Systolic 138 mm[Hg] Comments: Patient Position: Sitting; Cuff Location: Left Arm; Cuff Size: Large BP Diastolic 86 mm[Hg] Comments: Patient Position: Sitting; Cuff Location: Left Arm; Cuff Size: Large Weight 235 lb Height 68 in Body Mass Index Calculated 35.73 kg/m2 Body Surface Area Calculated 2.19 m2 :06 Pulse 64 /min Comments: Pattern: Regular Respiration Rate 20 /min Comments: Pattern: Unlabored BP Systolic 120 mm[Hg] Comments: Patient Position: Sitting; Cuff Location: Left Arm; Cuff Size: Large BP Diastolic 68 mm[Hg] Comments: Patient Position: Sitting; Cuff Location: Left Arm; Cuff Size: Large Weight 241 lb Height 68 in Body Mass Index Calculated 36.64 kg/m2 Body Surface Area Calculated 2.21 m2 :12 Pulse 80 /min Comments: Pattern: Regular Respiration Rate 20 /min Comments: Pattern: Unlabored BP Systolic 128 mm[Hg] Comments: Patient Position: Sitting; Cuff Location: Left Arm; Cuff Size: Large BP Diastolic 88 mm[Hg] Comments: Patient Position: Sitting; Cuff Location: Left Arm; Cuff Size: Large Weight 241 lb Height 68 in Body Mass Index Calculated 36.64 kg/m2 Body Surface Area Calculated 2.21 m2 :56 Pulse 64 /min Comments: Pattern: Regular Respiration Rate 20 /min Comments: Pattern: Unlabored BP Systolic 122 mm[Hg] Comments: Patient Position: Sitting; Cuff Location: Left Arm; Cuff Size: Large BP Diastolic 80 mm[Hg] Comments: Patient Position: Sitting; Cuff Location: Left Arm; Cuff Size: Large Weight 233.25 lb Height 68 in Body Mass Index Calculated 35.47 kg/m2 Body Surface Area Calculated 2.18 m2 :27 Pulse 88 /min Comments: Pattern: Regular Respiration Rate 20 /min Comments: Pattern: Unlabored BP Systolic 118 mm[Hg] Comments: Patient Position: Sitting; Cuff Location: Left Arm; Cuff Size: Large BP Diastolic 60 mm[Hg] Comments: Patient Position: Sitting; Cuff Location: Left Arm; Cuff Size: Large Weight 233.25 lb Height 68 in Body Mass Index Calculated 35.47 kg/m2 Body Surface Area Calculated 2.18 m2 :17 Pulse 68 /min Comments: Pattern: Regular Respiration Rate 20 /min Comments: Pattern: Unlabored BP Systolic 128 mm[Hg] Comments: Patient Position: Sitting; Cuff Location: Left Arm; Cuff Size: Standard BP Diastolic 72 mm[Hg] Comments: Patient Position: Sitting; Cuff Location: Left Arm; Cuff Size: Standard Weight 233.25 lb Height 68 in Body Mass Index Calculated 35.47 kg/m2 Body Surface Area Calculated 2.18 m2 :24 Pulse 68 /min Comments: Pattern: Regular Respiration Rate 20 /min Comments: Pattern: Unlabored BP Systolic 122 mm[Hg] Comments: Patient Position: Sitting; Cuff Location: Left Arm; Cuff Size: Large BP Diastolic 90 mm[Hg] Comments: Patient Position: Sitting; Cuff Location: Left Arm; Cuff Size: Large Weight 233.25 lb Height 68 in Body Mass Index Calculated 35.47 kg/m2 Body Surface Area Calculated 2.18 m2 :24 Pulse 20 /min Comments: Pattern: Regular Respiration Rate 20 /min Comments: Pattern: Unlabored BP Systolic 132 mm[Hg] Comments: Patient Position: Sitting; Cuff Location: Left Arm; Cuff Size: Large BP Diastolic 64 mm[Hg] Comments: Patient Position: Sitting; Cuff Location: Left Arm; Cuff Size: Large Weight 233.25 lb Height 68 in Body Mass Index Calculated 35.47 kg/m2 Body Surface Area Calculated 2.18 m2 :09 Pulse 72 /min Comments: Pattern: Regular Respiration Rate 20 /min Comments: Pattern: Unlabored BP Systolic 130 mm[Hg] Comments: Patient Position: Sitting; Cuff Location: Left Arm; Cuff Size: Large BP Diastolic 82 mm[Hg] Comments: Patient Position: Sitting; Cuff Location: Left Arm; Cuff Size: Large Weight 251.25 lb Height 68 in Body Mass Index Calculated 38.2 kg/m2 Body Surface Area Calculated 2.25 m2 :14 BP Systolic 128 mm[Hg] Comments: Patient Position: Sitting; Cuff Location: Left Arm; Cuff Size: Large BP Diastolic 68 mm[Hg] Comments: Patient Position: Sitting; Cuff Location: Left Arm; Cuff Size: Large Weight 0 lb Height 0 in Head Circumference 0.00 cm :00 Pulse 80 /min Comments: Pattern: Regular Respiration Rate 20 /min Comments: Pattern: Unlabored BP Systolic 128 mm[Hg] Comments: Patient Position: Sitting; Cuff Location: Left Arm; Cuff Size: Large BP Diastolic 90 mm[Hg] Comments: Patient Position: Sitting; Cuff Location: Left Arm; Cuff Size: Large Weight 244.125 lb Height 68 in Body Mass Index Calculated 37.12 kg/m2 Body Surface Area Calculated 2.22 m2 Head Circumference 0.00 cm :59 Pulse 80 /min Comments: Pattern: Regular Respiration Rate 20 /min Comments: Pattern: Unlabored BP Systolic 138 mm[Hg] Comments: Patient Position: Sitting; Cuff Location: Left Arm; Cuff Size: Large BP Diastolic 82 mm[Hg] Comments: Patient Position: Sitting; Cuff Location: Left Arm; Cuff Size: Large Weight 250.3125 lb Height 68 in Body Mass Index Calculated 38.06 kg/m2 Body Surface Area Calculated 2.25 m2 Head Circumference 0.00 cm :16 BP Systolic 142 mm[Hg] Comments: Patient Position: Sitting; Cuff Location: Right Arm; Cuff Size: Standard BP Diastolic 88 mm[Hg] Comments: Patient Position: Sitting; Cuff Location: Right Arm; Cuff Size: Standard Weight 0 lb Height 0 in Head Circumference 0.00 cm :47 Pulse 80 /min Comments: Pattern: Regular Respiration Rate 20 /min Comments: Pattern: Unlabored BP Systolic 172 mm[Hg] Comments: Patient Position: Standing; Cuff Location: Left Arm; Cuff Size: Standard BP Diastolic 98 mm[Hg] Comments: Patient Position: Standing; Cuff Location: Left Arm; Cuff Size: Standard Weight 230.4375 lb Height 68 in Body Mass Index Calculated 35.04 kg/m2 Body Surface Area Calculated 2.17 m2 Head Circumference 0.00 cm :21 Pulse 88 /min Comments: Pattern: Regular Respiration Rate 20 /min Comments: Pattern: Unlabored BP Systolic 124 mm[Hg] Comments: Patient Position: Sitting; Cuff Location: Left Arm; Cuff Size: Large BP Diastolic 82 mm[Hg] Comments: Patient Position: Sitting; Cuff Location: Left Arm; Cuff Size: Large Weight 230.4375 lb Height 68 in Body Mass Index Calculated 35.04 kg/m2 Body Surface Area Calculated 2.17 m2 Head Circumference 0.00 cm 30-Pgg-858450:57 Pulse 64 /min Comments: Pattern: Regular Respiration Rate 20 /min Comments: Pattern: Unlabored BP Systolic 144 mm[Hg] Comments: Patient Position: Sitting; Cuff Location: Right Arm; Cuff Size: Standard BP Diastolic 102 mm[Hg] Comments: Patient Position: Sitting; Cuff Location: Right Arm; Cuff Size: Standard Weight 232.375 lb Height 68 in Body Mass Index Calculated 35.33 kg/m2 Body Surface Area Calculated 2.18 m2 Head Circumference 0.00 cm Results Date Description Value Details [id number]-Pgz-[id number]:07 Microscopic Examination Comments: PATIENT NOT FASTINGPERFORMED BY: [facility] [id number] Bacteria None seen (Normal) Mucus Threads Present (Normal) Crystal Type Calcium Oxalate (Normal) Crystals Present (Abnormal) Cast Type Hyaline casts (Normal) Casts Present {/lpf} (Abnormal) Epithelial Cells (non renal) None seen {/hpf} (Normal) Range: 0 - 10 RBC 0-2 {/hpf} (Normal) Range: 0 - 2 WBC 0-5 {/hpf} (Normal) Range: 0 - 5 27-Gpx-678894:07 URINALYSIS, W/ MICRO (40751) Comments: PATIENT NOT FASTINGPERFORMED BY: [employer] G[facility] SoftwareFry[facility] [id number] Microscopic Examination See below: (Normal) Comments: Microscopic was indicated and was performed. Nitrite, Urine Negative (Normal) Urobilinogen,Semi-Qn 0.2 mg/dL (Normal) Range: 0.2-1.0 Bilirubin Negative (Normal) Occult Blood Negative (Normal) Ketones 1+ (Abnormal) Glucose Trace (Abnormal) Protein 1+ (Abnormal) WBC Esterase Negative (Normal) Appearance Clear (Normal) Urine-Color Yellow (Normal) pH 5.0 (Normal) Range: 5.0-7.5 Specific [place] 1.029 (Normal) Range: 1.005-1.030 23-Ron-200308:07 MICROALBUMIN: CREATININE RATIO Comments: PATIENT NOT FASTINGPERFORMED BY: [employer] [facility] [id number] ([id number]) AND (28690) Alb/Creat Ratio 47.7 {mg/g_creat} (Abnormal) Range: 0.0-30.0 Albumin, Urine 99.5 ug/mL (Normal) Creatinine, Urine 208.5 mg/dL (Normal) :57 HgA1C , Office (88198) HgA1C , Office 7.9 % (Abnormal) Range: 4.6 - 7.1 :57 Blood Glucose , Office (59882) Blood Glucose , Office 204 (Normal) 27-Sep-20171:31 Anaerobic & Aerobic Comments: right lower extremity; PATIENT NOT FASTINGPERFORMED BY: L[employer]SN [employer] [facility] [id number] Information: RIGHT LEG SRC:RL Culture (04036) Result 1 NG36 (Normal) Comments: No growth in 36 - 48 hours. Aerobic Culture Final report (Normal) Result 1 [id number] (Normal) Comments: No aerobic or anaerobic growth in 72 hours. Anaerobic Culture Final report (Normal) 27-Zsx-098415:39 TSH (THYROID STIMULATING Comments: PATIENT NOT FASTINGPERFORMED BY: [email or web address] [id number] BY: [employer]70 [facility] [id number] HORMONE) (53263) TSH 2.660 {uIU/mL} (Normal) Range: 0.450-4.500 04-Wlp-977532:39 CBC with auto diff Comments: PATIENT NOT FASTINGPERFORMED BY: [email or web address] [id number] BY: [employer] [facility] [id number] (22210) Immature Grans (Abs) 0.0 {x10E3/uL} (Normal) Range: 0.0-0.1 Immature Granulocytes 0 % (Normal) Baso (Absolute) 0.1 {x10E3/uL} (Normal) Range: 0.0-0.2 Eos (Absolute) 0.3 {x10E3/uL} (Normal) Range: 0.0-0.4 Monocytes(Absolute) 0.7 {x10E3/uL} (Normal) Range: 0.1-0.9 Lymphs (Absolute) 2.0 {x10E3/uL} (Normal) Range: 0.7-3.1 Neutrophils (Absolute) 5.9 {x10E3/uL} (Normal) Range: 1.4-7.0 Basos 1 % (Normal) Eos 4 % (Normal) Monocytes 8 % (Normal) Lymphs 22 % (Normal) Neutrophils 65 % (Normal) Platelets 304 {x10E3/uL} (Normal) Range: 150-379 RDW 13.4 % (Normal) Range: 12.3-15.4 MCHC 35.1 g/dL (Normal) Range: 31.5-35.7 MCH 31.3 pg (Normal) Range: 26.6-33.0 MCV 89 fL (Normal) Range: 79-97 Hematocrit 44.5 % (Normal) Range: 37.5-51.0 Hemoglobin 15.6 g/dL (Normal) Range: 13.0-17.7 RBC 4.98 {x10E6/uL} (Normal) Range: 4.14-5.80 WBC 9.0 {x10E3/uL} (Normal) Range: 3.4-10.8 17-Hwr-919412:39 METABOLIC PANEL, Comments: PATIENT NOT FASTINGPERFORMED BY: BN [facility] [address] [id number] BY: CB [facility] Vtwuqm1152 [facility] [id number] COMPREHENSIVE (02708) ALT (SGPT) 21 [iU]/L (Normal) Range: 0-44 AST (SGOT) 18 [iU]/L (Normal) Range: 0-40 Alkaline Phosphatase 77 [iU]/L (Normal) Range: 39-117 Bilirubin, Total 0.4 mg/dL (Normal) Range: 0.0-1.2 A/G Ratio 1.7 (Normal) Range: 1.2-2.2 Globulin, Total 2.8 g/dL (Normal) Range: 1.5-4.5 Albumin 4.7 g/dL (Normal) Range: 3.5-4.8 Protein, Total 7.5 g/dL (Normal) Range: 6.0-8.5 Calcium 10.3 mg/dL (Abnormal) Range: 8.6-10.2 Carbon Dioxide, Total 22 mmol/L (Normal) Range: 18-29 Chloride 100 mmol/L (Normal) Range: 96-106 Potassium 5.3 mmol/L (Abnormal) Range: 3.5-5.2 Sodium 141 mmol/L (Normal) Range: 134-144 BUN/Creatinine Ratio 14 (Normal) Range: 10-24 eGFR If Africn Am 60 mL/min/1.73 (Normal) eGFR If NonAfricn Am 52 mL/min/1.73 (Abnormal) Creatinine 1.33 mg/dL (Abnormal) Range: 0.76-1.27 BUN 18 mg/dL (Normal) Range: 8-27 Glucose 147 mg/dL (Abnormal) Range: 65-99 49-Mzn-085566:39 LIPOPROTEIN, BLD, BY NMR Comments: PATIENT NOT FASTINGPERFORMED BY: BN [facility] [address] [id number] BY: CB [facility] Vxdcne8187 [facility] [id number] (21457) LP-IR Score 92 (Abnormal) Comments: INSULIN RESISTANCE MARKER <--Insulin Sensitive Insulin Resistant--> Percentile in Reference PopulationInsulin Resistance ScoreLP-IR Score Low 25th 50th 75th High <27 27 45 63 >63LP-IR Score is inaccurate if patient is non-fasting. .The LP-IR score is a laboratory developed i [facility] that has beenassociated with insulin resistance and diabetes risk and should beused as one component of a physician's clinical assessment. TheLP-IR score listed above has not been cleared by the [place] Food andDrug Administration. LDL Size 20.1 nm (Normal) Comments: INTERPRETATIVE INFORMATION PARTICLE CONCENTRATION AND SIZE <--Lower CVD Risk Highe r CVD Risk--> LDL AND HDL PARTICLES Percentile in Reference Population HDL-P (total) High 75th 50th 25th Low >34.9 34.9 30.5 26.7 <26.7 . Small LDL-P Low 25th 50th 75th High <117 117 527 839 >839 . LDL Size <-Large (Pattern A)-> <-Small (Pattern B)-> 23.0 20.6 20.5 19.0 Small LDL-P and LDL Size are associated with CVD risk, but not afterLDL-P is taken into account. .These assays were developed and their performance characteristicsdetermined by [employer]. These assays have not been cleared by [employer] Food and Drug Administration. The clinical utility of theselaboratory values have not been fully established. Small LDL-P 1006 nmol/L (Abnormal) HDL-P (Total) 26.6 umol/L (Abnormal) Cholesterol, Total 167 mg/dL (Normal) Range: 100-199 Triglycerides 200 mg/dL (Abnormal) Range: 0-149 HDL-C 39 mg/dL (Abnormal) LDL-C 88 mg/dL (Normal) Range: 0-99 Comments: . Optimal < 100 Above optimal 100 - 129 Borderline 1 30 - 159 High 160 - 189 Very high > 189 .LDL-C is inaccurate if patient is non-fasting. LDL-P 1542 nmol/L (Abnormal) Comments: Low < 1000 Moderate 1000 - 1299 Borderline-High 1300 - 1599 High 1600 - 2000 Very High > 2000 79-Xpz-534642:39 CALCIFEDIOL (21123) Comments: PATIENT NOT FASTINGPERFORMED BY: [facility] [address] [id number] BY: [facility] Xiyxzi4324 [facility] [id number] Vitamin D, 25-Hydroxy 37.3 ng/mL (Normal) Range: 30.0-100.0 Comments: Vitamin D deficiency has been defined by the [place] of[place] and an Endocrine Society practice guideline as alevel of serum 25-OH vitamin D less than 20 ng/mL (1,2).The Endocrine Society went on to further define vitamin Dinsufficiency as a level between 21 and 29 ng/mL (2).1. IOM ([place] [employer]). 2010. Dietary reference intakes for calcium and D. [place]: The National Academies Press.2. Sandy MF, Braulio DALTON, Darren STILL, et al. Evaluation, treatment, and prevention of vitamin D deficiency: an Endocrine Society clinical practice guideline. JCEM. 2010; 96(7):1911-30. :29 HgA1C , Office (31860) HgA1C , Office 7.3 % (Abnormal) Range: 4.6 - 7.1 :29 Blood Glucose , Office (01490) Blood Glucose , Office 151 (Normal) 5-Hso-655160:31 Microscopic Examination Comments: PATIENT WAS FASTINGPERFORMED BY: [email or web address] [id number] BY: [email or web address] [facility] [id number] Bacteria Few (Normal) Mucus Threads Present (Normal) Crystal Type Calcium Oxalate (Normal) Crystals Present (Abnormal) Epithelial Cells (non renal) None seen {/hpf} (Normal) Range: 0 - 10 RBC 0-2 {/hpf} (Normal) Range: 0 - 2 WBC 11-30 {/hpf} (Abnormal) Range: 0 - 5 4-Oce-314523:31 LIPOPROTEIN, BLD, BY NMR Comments: PATIENT WAS FASTINGPERFORMED BY: [email or web address] [id number] BY: [email or web address] [facility] [id number] (51257) LP-IR Score 89 (Abnormal) Comments: INSULIN RESISTANCE MARKER <--Insulin Sensitive Insulin Resistant--> Percentile in Reference PopulationInsulin Resistance ScoreLP-IR Score Low 25th 50th 75th High <27 27 45 63 >63LP-IR Score is inaccurate if patient is non-fasting. .The LP-IR score is a laboratory developed i [facility] that has beenassociated with insulin resistance and diabetes risk and should beused as one component of a physician's clinical assessment. TheLP-IR score listed above has not been cleared by the [place] Food andDrug Administration. LDL Size 20.2 nm (Normal) Comments: INTERPRETATIVE INFORMATION PARTICLE CONCENTRATION AND SIZE <--Lower CVD Risk Highe r CVD Risk--> LDL AND HDL PARTICLES Percentile in Reference Population HDL-P (total) High 75th 50th 25th Low >34.9 34.9 30.5 26.7 <26.7 . Small LDL-P Low 25th 50th 75th High <117 117 527 839 >839 . LDL Size <-Large (Pattern A)-> <-Small (Pattern B)-> 23.0 20.6 20.5 19.0 Small LDL-P and LDL Size are associated with CVD risk, but not afterLDL-P is taken into account. .These assays were developed and their performance characteristicsdetermined by [employer]. These assays have not been cleared by [employer] Food and Drug Administration. The clinical utility of theselaboratory values have not been fully established. Small LDL-P 1148 nmol/L (Abnormal) HDL-P (Total) 30.2 umol/L (Abnormal) Cholesterol, Total 206 mg/dL (Abnormal) Range: 100-199 Triglycerides 159 mg/dL (Abnormal) Range: 0-149 HDL-C 39 mg/dL (Abnormal) LDL-C 135 mg/dL (Abnormal) Range: 0-99 Comments: . Optimal < 100 Above optimal 100 - 129 Borderline 1 30 - 159 High 160 - 189 Very high > 189 .LDL-C is inaccurate if patient is non-fasting. LDL-P 1965 nmol/L (Abnormal) Comments: Low < 1000 Moderate 1000 - 1299 Borderline-High 1300 - 1599 High 1600 - 2000 Very High > 27-May-201710:31 CALCIFEDIOL (52835) Comments: PATIENT WAS FASTINGPERFORMED BY: LabCRMnext[address] [id number] BY: [facility] [address] StreetDublin [place] [id number] Vitamin D, 25-Hydroxy 35.2 ng/mL (Normal) Range: 30.0-100.0 Comments: Vitamin D deficiency has been defined by the [place] of[place] and an Endocrine Society practice guideline as alevel of serum 25-OH vitamin D less than 20 ng/mL (1,2).The Endocrine Society went on to further define vitamin Dinsufficiency as a level between 21 and 29 ng/mL (2).1. IOM ([place]). 2010. Dietary reference intakes for calcium and D. [place]: The National Academies Press.2. Sandy MF, Braulio DALTON, Darren STILL, et al. Evaluation, treatment, and prevention of vitamin D deficiency: an Endocrine Society clinical practice guideline. JCEM. 2010; 96(7):1911-30. 3-Vwb-864134:31 TSH (81118) Comments: PATIENT WAS FASTINGPERFORMED BY: [email or web address] [id number] BY: [employer] Olchuo5076 [facility] [id number] TSH 2.920 {uIU/mL} (Normal) Range: 0.450-4.500 5-Qka-747448:31 URINALYSIS, W/ MICRO Comments: PATIENT WAS FASTINGPERFORMED BY: [employer] [id number] BY: [employer]ocab Mubuxk0717 [facility] [id number] (60571) Microscopic Examination See below: (Normal) Comments: Microscopic was indicated and was performed. Nitrite, Urine Positive (Abnormal) Urobilinogen,Semi-Qn 0.2 mg/dL (Normal) Range: 0.2-1.0 Bilirubin Negative (Normal) Occult Blood Negative (Normal) Ketones Negative (Normal) Glucose Trace (Abnormal) Protein Trace (Normal) WBC Esterase Negative (Normal) Appearance Clear (Normal) Urine-Color Yellow (Normal) pH 5.0 (Normal) Range: 5.0-7.5 Specific [place] 1.025 (Normal) Range: 1.005-1.030 0-Xqu-962455:31 MICROALBUMIN: CREATININE Comments: PATIENT WAS FASTINGPERFORMED BY: VocabAshley Ville 605557 [facility] [id number] BY: [facility]6370 [facility] [id number] RATIO (03712) AND (15161) Alb/Creat Ratio 60.1 {mg/g_creat} (Abnormal) Range: 0.0-30.0 Albumin, Urine 107.3 ug/mL (Normal) Creatinine, Urine 178.6 mg/dL (Normal) 0-Jqd-252083:31 METABOLIC PANEL, Comments: PATIENT WAS FASTINGPERFORMED BY: [place]abAsh[place] 605557 [facility] [id number] BY: VocabGreystone Park Psychiatric HospitalSnizxi8227 [facility] [id number] COMPREHENSIVE (86970) ALT (SGPT) 21 [iU]/L (Normal) Range: 0-44 AST (SGOT) 20 [iU]/L (Normal) Range: 0-40 Alkaline Phosphatase, S 98 [iU]/L (Normal) Range: 39-117 Bilirubin, Total 0.3 mg/dL (Normal) Range: 0.0-1.2 A/G Ratio 1.5 (Normal) Range: 1.2-2.2 Globulin, Total 3.0 g/dL (Normal) Range: 1.5-4.5 Albumin, Serum 4.6 g/dL (Normal) Range: 3.5-4.8 Protein, Total, Serum 7.6 g/dL (Normal) Range: 6.0-8.5 Calcium, Serum 10.0 mg/dL (Normal) Range: 8.6-10.2 Carbon Dioxide, Total 21 mmol/L (Normal) Range: 18-29 Chloride, Serum 99 mmol/L (Normal) Range: 96-106 Potassium, Serum 5.0 mmol/L (Normal) Range: 3.5-5.2 Sodium, Serum 139 mmol/L (Normal) Range: 134-144 BUN/Creatinine Ratio 17 (Normal) Range: 10-24 eGFR If Africn Am 71 mL/min/1.73 (Normal) eGFR If NonAfricn Am 61 mL/min/1.73 (Normal) Creatinine, Serum 1.17 mg/dL (Normal) Range: 0.76-1.27 BUN 20 mg/dL (Normal) Range: 8-27 Glucose, Serum 184 mg/dL (Abnormal) Range: 65-99 :31 CBC W/AUTO DIFF WBC Comments: PATIENT WAS FASTINGPERFORMED BY: BN [facility] Mrzceeptad9582 [facility] [id number] BY: CB [facility] Heqvza2514 [facility] [id number] (27378) Immature Grans (Abs) 0.0 {x10E3/uL} (Normal) Range: 0.0-0.1 Immature Granulocytes 0 % (Normal) Baso (Absolute) 0.1 {x10E3/uL} (Normal) Range: 0.0-0.2 Eos (Absolute) 0.2 {x10E3/uL} (Normal) Range: 0.0-0.4 Monocytes(Absolute) 0.8 {x10E3/uL} (Normal) Range: 0.1-0.9 Lymphs (Absolute) 1.6 {x10E3/uL} (Normal) Range: 0.7-3.1 Neutrophils (Absolute) 6.2 {x10E3/uL} (Normal) Range: 1.4-7.0 Basos 1 % (Normal) Eos 2 % (Normal) Monocytes 9 % (Normal) Lymphs 19 % (Normal) Neutrophils 69 % (Normal) Platelets 352 {x10E3/uL} (Normal) Range: 150-379 RDW 14.0 % (Normal) Range: 12.3-15.4 MCHC 34.1 g/dL (Normal) Range: 31.5-35.7 MCH 31.3 pg (Normal) Range: 26.6-33.0 MCV 92 fL (Normal) Range: 79-97 Hematocrit 47.5 % (Normal) Range: 37.5-51.0 Hemoglobin 16.2 g/dL (Normal) Range: 13.0-17.7 RBC 5.18 {x10E6/uL} (Normal) Range: 4.14-5.80 WBC 8.8 {x10E3/uL} (Normal) Range: 3.4-10.8 :55 HgA1C , Office (16478) HgA1C , Office 8.4 % (Abnormal) Range: 4.6 - 7.1 :55 Blood Glucose , Office (10213) Blood Glucose , Office 197 (Normal) :45 HgA1C , Office (10834) HgA1C , Office 8.1 % (Abnormal) Range: 4.6 - 7.1 :45 Blood Glucose , Office (91350) Blood Glucose , Office 183 (Normal) :30 Culture, Urine Comments: [facility] Fxohwmmjwy9970 [facility] [place] [place], [address] CUUR See Note (Normal) Comments: Urine CultureORGANISM 1: Staphylococcus epidermidisColony Count >100,000 Staphylococcus epidermidis: REACTION Benzylpenicillin NF >=0.5 R Cefoxitin *NF + Inducable Clindamycin Resistan - Gentamicin $ <=0.5 S Levofloxacin $ >=8 R Linezolid $$$$ 1 S Nitrofurantoin $ <=16 S Oxacillin NF >=4 R Rifampin $$ <=0.5 S Tetracycline NF <=1 S Vancomycin $ <=0.5 S(NF) indicates non- formulary drug at [facility]. Approval by Infectious Disease Specialist required before non-formulary drugs may be ordered and/or dispensed. * CLSI guidelines does not recommend testing of cephalosporins. This interpretation is deduced from Beta-lactam/penicillin results. :32 Miscellaneous Lab Procedure Comments: Test(s) Ordered: [id number], TAPENDADOL, LAV TOP, ROOM [facility] Dbrjetavli[address] [place], [address] [facility] [place]: TEST RESULT UNITS REFERENCE INTERVALTapentadol, WBTapentadol 43.3 ng/mLThis test was developed and its performance characteristicsdetermined by [facility]. It has not LAB (Normal) been cleared or approvedby the Food and Drug Administration.REFERENCE RANGE: Not Established TESTING PERFORMED AT [facility]. ORIGINAL REPORT ON F TEST ILE IN LAB CONTAINS ADDITIONAL TEST SITE INFORMATION. 87-Ria-584796:09 Microscopic Examination Comments: PATIENT WAS FASTINGPERFORMED BY: [facility] [facility] [id number] Bacteria Few (Normal) Mucus Threads Present (Normal) Epithelial Cells (non renal) 0-10 {/hpf} (Normal) Range: 0 - 10 RBC 0-2 {/hpf} (Normal) Range: 0 - 2 WBC 11-30 {/hpf} (Abnormal) Range: 0 - 5 41-Oyb-921364:09 TSH (99269) Comments: PATIENT WAS FASTINGPERFORMED BY: [facility] [facility] [id number] TSH 2.510 {uIU/mL} (Normal) Range: 0.450-4.500 73-Zys-264935:09 CALCIFEDIOL (62881) Comments: PATIENT WAS FASTINGPERFORMED BY: [facility] [facility] [id number] Vitamin D, 25-Hydroxy 42.9 ng/mL (Normal) Range: 30.0-100.0 Comments: Vitamin D deficiency has been defined by the [place] of[place] and an Endocrine Society practice guideline as alevel of serum 25-OH vitamin D less than 20 ng/mL (1,2).The Endocrine Society went on to further define vitamin Dinsufficiency as a level between 21 and 29 ng/mL (2).1. IOM ([place] of [place]). 2010. Dietary reference intakes for calcium and D. [place]: The National Academies Press.2. Sandy MF, Braulio NC, Darren STILL, et al. Evaluation, treatment, and prevention of vitamin D deficiency: an Endocrine Society clinical practice guideline. JCEM. 2010; 96(7):1911-30. 12-Pqx-247452:09 URINALYSIS, W/ MICRO (62093) Comments: PATIENT WAS FASTINGPERFORMED BY: VocabGreystone Park Psychiatric HospitalTmjglf0584 [facility] [id number] Microscopic Examination See below: (Normal) Comments: Microscopic was indicated and was performed. Nitrite, Urine Negative (Normal) Urobilinogen,Semi-Qn 0.2 mg/dL (Normal) Range: 0.2-1.0 Bilirubin Negative (Normal) Occult Blood Negative (Normal) Ketones Negative (Normal) Glucose Negative (Normal) Protein 1+ (Abnormal) WBC Esterase 1+ (Abnormal) Appearance Cloudy (Abnormal) Urine-Color Yellow (Normal) pH 7.5 (Normal) Range: 5.0-7.5 Specific [place] 1.024 (Normal) Range: 1.005-1.030 16-Kqj-786613:09 MICROALBUMIN: CREATININE RATIO Comments: PATIENT WAS FASTINGPERFORMED BY: VocabGreystone Park Psychiatric HospitalZretch0270 [facility] [id number] (27818) AND (67753) Microalb/Creat Ratio 49.7 {mg/g_creat} (Abnormal) Range: 0.0-30.0 Microalbumin, Urine 78.3 ug/mL (Normal) Creatinine, Urine 157.5 mg/dL (Normal) :09 METABOLIC PANEL, COMPREHENSIVE Comments: PATIENT WAS FASTINGPERFORMED BY: VocabGreystone Park Psychiatric HospitalGwnntn5681 [facility] [id number] (61562) ALT (SGPT) 19 [iU]/L (Normal) Range: 0-44 AST (SGOT) 21 [iU]/L (Normal) Range: 0-40 Alkaline Phosphatase, S 69 [iU]/L (Normal) Range: 39-117 Bilirubin, Total 0.3 mg/dL (Normal) Range: 0.0-1.2 A/G Ratio 1.7 (Normal) Range: 1.2-2.2 Globulin, Total 2.8 g/dL (Normal) Range: 1.5-4.5 Albumin, Serum 4.7 g/dL (Normal) Range: 3.5-4.8 Protein, Total, Serum 7.5 g/dL (Normal) Range: 6.0-8.5 Calcium, Serum 9.5 mg/dL (Normal) Range: 8.6-10.2 Carbon Dioxide, Total 20 mmol/L (Normal) Range: 18-29 Chloride, Serum 102 mmol/L (Normal) Range: 96-106 Potassium, Serum 4.5 mmol/L (Normal) Range: 3.5-5.2 Sodium, Serum 142 mmol/L (Normal) Range: 134-144 BUN/Creatinine Ratio 16 (Normal) Range: 10-24 eGFR If Africn Am 78 mL/min/1.73 (Normal) eGFR If NonAfricn Am 68 mL/min/1.73 (Normal) Creatinine, Serum 1.08 mg/dL (Normal) Range: 0.76-1.27 BUN 17 mg/dL (Normal) Range: 8-27 Glucose, Serum 136 mg/dL (Abnormal) Range: 65-99 05-Hxl-156898:09 LIPID PANEL (59341) Comments: PATIENT WAS FASTINGPERFORMED BY: [employer]70 [employer] [place] [id number] LDL/HDL Ratio 2.5 {ratio_units} (Normal) Range: 0.0-3.6 Comments: LDL/HDL Ratio Men Women 1/2 Avg.Risk 1.0 1.5 Av g.Risk 3.6 3.2 2X Avg.Risk 6.2 5.0 3X Avg.Risk 8.0 6.1 LDL Cholesterol Calc 101 mg/dL (Abnormal) Range: 0-99 VLDL Cholesterol Meche 28 mg/dL (Normal) Range: 5-40 HDL Cholesterol 41 mg/dL (Normal) Triglycerides 139 mg/dL (Normal) Range: 0-149 Cholesterol, Total 170 mg/dL (Normal) Range: 100-199 75-Ffj-497053:09 CBC W/AUTO DIFF WBC (43610) Comments: PATIENT WAS FASTINGPERFORMED BY: CarePayment70 [facility] [id number] Immature Grans (Abs) 0.0 {x10E3/uL} (Normal) Range: 0.0-0.1 Immature Granulocytes 0 % (Normal) Baso (Absolute) 0.0 {x10E3/uL} (Normal) Range: 0.0-0.2 Eos (Absolute) 0.2 {x10E3/uL} (Normal) Range: 0.0-0.4 Monocytes(Absolute) 1.0 {x10E3/uL} (Abnormal) Range: 0.1-0.9 Lymphs (Absolute) 1.9 {x10E3/uL} (Normal) Range: 0.7-3.1 Neutrophils (Absolute) 5.6 {x10E3/uL} (Normal) Range: 1.4-7.0 Basos 1 % (Normal) Eos 2 % (Normal) Monocytes 12 % (Normal) Lymphs 22 % (Normal) Neutrophils 63 % (Normal) Platelets 316 {x10E3/uL} (Normal) Range: 150-379 RDW 13.4 % (Normal) Range: 12.3-15.4 MCHC 34.3 g/dL (Normal) Range: 31.5-35.7 MCH 30.9 pg (Normal) Range: 26.6-33.0 MCV 90 fL (Normal) Range: 79-97 Hematocrit 42.6 % (Normal) Range: 37.5-51.0 Hemoglobin 14.6 g/dL (Normal) Range: 12.6-17.7 RBC 4.72 {x10E6/uL} (Normal) Range: 4.14-5.80 WBC 8.8 {x10E3/uL} (Normal) Range: 3.4-10.8 :36 HgA1C , Office (21200) HgA1C , Office 7.3 % (Abnormal) Range: 4.6 - 7.1 :36 Blood Glucose , Office (15145) Blood Glucose , Office 131 (Normal) 97-Hsw-577386:30 Culture, Aerobic, Comments: PERFORMED BY: LabCoGreystone Park Psychiatric HospitalJduwrr2007 [facility] [id number] Information: SRC:RL Bacterial ID ([id number]) Result 1 MSFGN (Normal) Comments: 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 Aerobic Bacterial Culture Final report (Normal) :15 Miscellaneous Lab Procedure Comments: Comments: [id number]; FISH URINE TEST; 50MLTest(s) Ordered: [id number]; FISH URINE TEST; [facility] Tapjmqovdt[address] [place], [address] [facility] [place] (Normal) Comments: Scanned image report available in EMR :15 PSA,Total - Annual Screen Comments: [facility] [address] [place], [id number] PSA,TOT SCREEN 0.14 ng/mL (Normal) Range: 0.00-4.00 Comments: This test was performed using the TPSA assay method for theGoshi chemistry system. Values obtained with differentassay methods cannot be used interchangably.When changing PSA assays in the course of monitoring apatient, additional sequential testing should be carriedout to confirm baseline values. :15 Testosterone, Serum Total Comments: [facility] [address] [place], [address] Testosterone 396 ng/dL (Normal) Range: 241-827 :45 Culture, Urine Comments: [facility] [address] [place], [address] CUUR See Note (Normal) Comments: Urine CultureORGANISM 1: Mixed Gram Positive OrganismsColony Count 25,000-50,000MIX CULTURE Mixed contaminants. Submit a new specimen if indicated. :30 HgA1C , Office (81432) HgA1C , Office 9.5 % (Abnormal) Range: 4.6 - 7.1 :30 Blood Glucose , Office (32535) Blood Glucose , Office 178 (Normal) 53-Xkn-928521:57 Fecal Occult Blood , Office (05113) Fecal Occult Blood , Office (Inhouse) negative (Normal) 45-Exk-106448:51 POTASSIUM SERUM (58313) Comments: PATIENT NOT FASTINGPERFORMED BY: [facility] Yvtqyo8083 [facility] [id number] Information: [id number] Potassium, Serum 4.9 mmol/L (Normal) Range: 3.5-5.2 :23 HgA1C , Office (98892) HgA1C , Office 8.4 % (Abnormal) Range: 4.6 - 7.1 :23 Blood Glucose , Office (03392) Blood Glucose , Office 129 (Normal) :34 TSH (THYROID STIMULATING Comments: PATIENT WAS FASTINGPERFORMED BY: [facility] [facility] [id number] HORMONE) (64221) TSH 1.580 {uIU/mL} (Normal) Range: 0.450-4.500 :34 CALCIFEDIOL (66464) Comments: PATIENT WAS FASTINGPERFORMED BY: [facility] [facility] [id number] Vitamin D, 25-Hydroxy 44.9 ng/mL (Normal) Range: 30.0-100.0 Comments: Vitamin D deficiency has been defined by the [place] of[place] and an Endocrine Society practice guideline as alevel of serum 25-OH vitamin D less than 20 ng/mL (1,2).The Endocrine Society went on to further define vitamin Dinsufficiency as a level between 21 and 29 ng/mL (2).1. IOM ([place] of [place]). 2010. Dietary reference intakes for calcium and D. [place]: The National Academies Press.2. Sandy MF, Braulio NC, Darren STILL, et al. Evaluation, treatment, and prevention of vitamin D deficiency: an Endocrine Society clinical practice guideline. JCEM. 2010; 96(7):1911-30. :34 METABOLIC PANEL, COMPREHENSIVE Comments: PATIENT WAS FASTINGPERFORMED BY: [facility] [facility] [id number] (92579) ALT (SGPT) 20 [iU]/L (Normal) Range: 0-44 AST (SGOT) 17 [iU]/L (Normal) Range: 0-40 Alkaline Phosphatase, S 75 [iU]/L (Normal) Range: 39-117 Bilirubin, Total 0.5 mg/dL (Normal) Range: 0.0-1.2 A/G Ratio 1.7 (Normal) Range: 1.1-2.5 Globulin, Total 2.6 g/dL (Normal) Range: 1.5-4.5 Albumin, Serum 4.3 g/dL (Normal) Range: 3.5-4.8 Protein, Total, Serum 6.9 g/dL (Normal) Range: 6.0-8.5 Calcium, Serum 9.7 mg/dL (Normal) Range: 8.6-10.2 Carbon Dioxide, Total 23 mmol/L (Normal) Range: 18-29 Chloride, Serum 99 mmol/L (Normal) Range: 97-108 Potassium, Serum 5.5 mmol/L (Abnormal) Range: 3.5-5.2 Sodium, Serum 139 mmol/L (Normal) Range: 134-144 BUN/Creatinine Ratio 14 (Normal) Range: 10-22 eGFR If Africn Am 74 mL/min/1.73 (Normal) eGFR If NonAfricn Am 64 mL/min/1.73 (Normal) Creatinine, Serum 1.14 mg/dL (Normal) Range: 0.76-1.27 BUN 16 mg/dL (Normal) Range: 8-27 Glucose, Serum 154 mg/dL (Abnormal) Range: 65-99 :34 LIPID PANEL (94801) Comments: PATIENT WAS FASTINGPERFORMED BY: [facility]4AllFrye [facility] [id number] LDL/HDL Ratio 2.4 {ratio_units} (Normal) Range: 0.0-3.6 Comments: LDL/HDL Ratio Men Women 1/2 Avg.Risk 1.0 1.5 Av g.Risk 3.6 3.2 2X Avg.Risk 6.2 5.0 3X Avg.Risk 8.0 6.1 LDL Cholesterol Calc 110 mg/dL (Abnormal) Range: 0-99 VLDL Cholesterol Meche 30 mg/dL (Normal) Range: 5-40 HDL Cholesterol 45 mg/dL (Normal) Comments: According to ATP-III Guidelines, HDL-C >59 mg/dL is considered anegative risk factor for CHD. Triglycerides 152 mg/dL (Abnormal) Range: 0-149 Cholesterol, Total 185 mg/dL (Normal) Range: 100-199 :34 CBC with auto diff Comments: PATIENT WAS FASTINGPERFORMED BY: [facility]6370 [facility]ikoF[facility] [id number] Information: [id number] (62909) Immature Grans (Abs) 0.0 {x10E3/uL} (Normal) Range: 0.0-0.1 Immature Granulocytes 0 % (Normal) Baso (Absolute) 0.0 {x10E3/uL} (Normal) Range: 0.0-0.2 Eos (Absolute) 0.1 {x10E3/uL} (Normal) Range: 0.0-0.4 Monocytes(Absolute) 0.8 {x10E3/uL} (Normal) Range: 0.1-0.9 Lymphs (Absolute) 1.6 {x10E3/uL} (Normal) Range: 0.7-3.1 Neutrophils (Absolute) 5.7 {x10E3/uL} (Normal) Range: 1.4-7.0 Basos 0 % (Normal) Eos 2 % (Normal) Monocytes 10 % (Normal) Lymphs 20 % (Normal) Neutrophils 68 % (Normal) Platelets 269 {x10E3/uL} (Normal) Range: 150-379 RDW 14.6 % (Normal) Range: 12.3-15.4 MCHC 33.8 g/dL (Normal) Range: 31.5-35.7 MCH 30.9 pg (Normal) Range: 26.6-33.0 MCV 92 fL (Normal) Range: 79-97 Hematocrit 44.4 % (Normal) Range: 37.5-51.0 Hemoglobin 15.0 g/dL (Normal) Range: 12.6-17.7 RBC 4.85 {x10E6/uL} (Normal) Range: 4.14-5.80 WBC 8.3 {x10E3/uL} (Normal) Range: 3.4-10.8 :22 Microscopic Examination Comments: PATIENT WAS FASTINGPERFORMED BY: LabCoGreystone Park Psychiatric HospitalHndvpe2472 [facility] [id number] Bacteria Few (Normal) Mucus Threads Present (Normal) Crystal Type Calcium Oxalate (Normal) Crystals Present (Abnormal) Epithelial Cells (non renal) None seen {/hpf} (Normal) Range: 0 - 10 RBC 0-2 {/hpf} (Normal) Range: 0 - 2 WBC 11-30 {/hpf} (Abnormal) Range: 0 - 5 :22 CBC W/AUTO DIFF WBC Comments: PATIENT WAS FASTINGPERFORMED BY: LabCoGreystone Park Psychiatric HospitalKfiuck1797 [facility] [id number] Information: [id number] (73808) Immature Grans (Abs) 0.0 {x10E3/uL} (Normal) Range: 0.0-0.1 Immature Granulocytes 0 % (Normal) Baso (Absolute) 0.1 {x10E3/uL} (Normal) Range: 0.0-0.2 Eos (Absolute) 0.2 {x10E3/uL} (Normal) Range: 0.0-0.4 Monocytes(Absolute) 0.8 {x10E3/uL} (Normal) Range: 0.1-0.9 Lymphs (Absolute) 2.3 {x10E3/uL} (Normal) Range: 0.7-3.1 Neutrophils (Absolute) 5.5 {x10E3/uL} (Normal) Range: 1.4-7.0 Basos 1 % (Normal) Eos 2 % (Normal) Monocytes 9 % (Normal) Lymphs 26 % (Normal) Neutrophils 62 % (Normal) Platelets 330 {x10E3/uL} (Normal) Range: 150-379 RDW 13.6 % (Normal) Range: 12.3-15.4 MCHC 34.5 g/dL (Normal) Range: 31.5-35.7 MCH 31.5 pg (Normal) Range: 26.6-33.0 MCV 92 fL (Normal) Range: 79-97 Hematocrit 46.1 % (Normal) Range: 37.5-51.0 Hemoglobin 15.9 g/dL (Normal) Range: 12.6-17.7 RBC 5.04 {x10E6/uL} (Normal) Range: 4.14-5.80 WBC 8.9 {x10E3/uL} (Normal) Range: 3.4-10.8 8-Vxx-118660:22 TSH (27140) Comments: PATIENT WAS FASTINGPERFORMED BY: VocabGreystone Park Psychiatric HospitalEzdfae3278 [facility] [id number] TSH 3.050 {uIU/mL} (Normal) Range: 0.450-4.500 4-Tfd-242026:22 URINALYSIS, W/ MICRO (51425) Comments: PATIENT WAS FASTINGPERFORMED BY: [facility]6[address] [facility] [id number] Microscopic Examination See below: (Normal) Comments: Microscopic was indicated and was performed. Nitrite, Urine Positive (Abnormal) Urobilinogen,Semi-Qn 0.2 mg/dL (Normal) Range: 0.2-1.0 Bilirubin Negative (Normal) Occult Blood Negative (Normal) Ketones Negative (Normal) Glucose Negative (Normal) Protein Negative (Normal) WBC Esterase 1+ (Abnormal) Appearance Clear (Normal) Urine-Color Yellow (Normal) pH 6.0 (Normal) Range: 5.0-7.5 Specific [place] 1.020 (Normal) Range: 1.005-1.030 :22 MICROALBUMIN: CREATININE RATIO Comments: PATIENT WAS FASTINGPERFORMED BY: GENELINKCorewell Health [facility] Hospital6[address] [facility] [id number] (23814) AND (40740) Microalb/Creat Ratio 23.2 {mg/g_creat} (Normal) Range: 0.0-30.0 Microalbumin, Urine 23.0 ug/mL (Abnormal) Range: 0.0-17.0 Creatinine, Urine 99.2 mg/dL (Normal) Range: 22.0-328.0 :22 METABOLIC PANEL, COMPREHENSIVE Comments: PATIENT WAS FASTINGPERFORMED BY: [facility]6[address] [facility] [id number] (59889) ALT (SGPT) 23 [iU]/L (Normal) Range: 0-44 AST (SGOT) 21 [iU]/L (Normal) Range: 0-40 Alkaline Phosphatase, S 79 [iU]/L (Normal) Range: 39-117 Bilirubin, Total 0.3 mg/dL (Normal) Range: 0.0-1.2 A/G Ratio 1.6 (Normal) Range: 1.1-2.5 Globulin, Total 2.9 g/dL (Normal) Range: 1.5-4.5 Albumin, Serum 4.6 g/dL (Normal) Range: 3.5-4.8 Protein, Total, Serum 7.5 g/dL (Normal) Range: 6.0-8.5 Calcium, Serum 9.6 mg/dL (Normal) Range: 8.6-10.2 Carbon Dioxide, Total 22 mmol/L (Normal) Range: 18-29 Chloride, Serum 98 mmol/L (Normal) Range: 97-108 Potassium, Serum 4.7 mmol/L (Normal) Range: 3.5-5.2 Sodium, Serum 138 mmol/L (Normal) Range: 134-144 BUN/Creatinine Ratio 13 (Normal) Range: 10-22 eGFR If Africn Am 80 mL/min/1.73 (Normal) eGFR If NonAfricn Am 69 mL/min/1.73 (Normal) Creatinine, Serum 1.07 mg/dL (Normal) Range: 0.76-1.27 BUN 14 mg/dL (Normal) Range: 8-27 Glucose, Serum 95 mg/dL (Normal) Range: 65-99 :22 CALCIFIDIOL (03474) VIT D 25 Comments: PATIENT WAS FASTINGPERFORMED BY: Ziffi70 [employer] [facility] JacksonChilicon PowerFrye [facility] [id number] Vitamin D, 25-Hydroxy 55.3 ng/mL (Normal) Range: 30.0-100.0 Comments: Vitamin D deficiency has been defined by the [place] of[place] and an Endocrine Society practice guideline as alevel of serum 25-OH vitamin D less than 20 ng/mL (1,2).The Endocrine Society went on to further define vitamin Dinsufficiency as a level between 21 and 29 ng/mL (2).1. IOM ([place] of [place]). 2010. Dietary reference intakes for calcium and D. [place]: The National Academies Press.2. Sandy MF, Braulio [place], Darren STILL, et al. Evaluation, treatment, and prevention of vitamin D deficiency: an Endocrine Society clinical practice guideline. JCEM. 2010; 96(7):1911-30. :22 LIPID PANEL (93320) Comments: PATIENT WAS FASTINGPERFORMED BY: [employer]6[address] [facility] [id number] LDL/HDL Ratio 1.9 {ratio_units} (Normal) Range: 0.0-3.6 Comments: LDL/HDL Ratio Men Women 1/2 Avg.Risk 1.0 1.5 Av g.Risk 3.6 3.2 2X Avg.Risk 6.2 5.0 3X Avg.Risk 8.0 6.1 LDL Cholesterol Calc 96 mg/dL (Normal) Range: 0-99 VLDL Cholesterol Meche 25 mg/dL (Normal) Range: 5-40 HDL Cholesterol 51 mg/dL (Normal) Comments: According to ATP-III Guidelines, HDL-C >59 mg/dL is considered anegative risk factor for CHD. Triglycerides 127 mg/dL (Normal) Range: 0-149 Cholesterol, Total 172 mg/dL (Normal) Range: 100-199 :11 Blood Glucose , Office (28283) Blood Glucose , Office 116 (Normal) :11 HgA1C , Office (10632) HgA1C , Office 8.8 % (Abnormal) Range: 4.6 - 7.1 :17 Hemoglobin Glyclated (HGB A1C) Comments: PATIENT NOT FASTINGPERFORMED BY: LabCorewell Health [facility] Hospital6370 [facility] [id number] (74757) Hemoglobin A1c 8.9 % (Abnormal) Range: 4.8-5.6 Comments: . Pre-diabetes: 5.7 - 6.4 Diabetes: >6.4 Glycemic control for adults with diabetes: <7.0 :17 TSH (46331) Comments: PATIENT NOT FASTINGPERFORMED BY: LabCoGreystone Park Psychiatric HospitalIqughm0324 [facility] [id number] TSH 2.960 {uIU/mL} (Normal) Range: 0.450-4.500 :17 METABOLIC PANEL, COMPREHENSIVE Comments: PATIENT NOT FASTINGPERFORMED BY: LabCoZachary Ville 2605170 [facility] [id number] (80833) ALT (SGPT) 25 [iU]/L (Normal) Range: 0-44 AST (SGOT) 24 [iU]/L (Normal) Range: 0-40 Alkaline Phosphatase, S 89 [iU]/L (Normal) Range: 39-117 Bilirubin, Total 0.3 mg/dL (Normal) Range: 0.0-1.2 A/G Ratio 1.3 (Normal) Range: 1.1-2.5 Globulin, Total 3.3 g/dL (Normal) Range: 1.5-4.5 Albumin, Serum 4.4 g/dL (Normal) Range: 3.5-4.8 Protein, Total, Serum 7.7 g/dL (Normal) Range: 6.0-8.5 Calcium, Serum 9.8 mg/dL (Normal) Range: 8.6-10.2 Carbon Dioxide, Total 17 mmol/L (Abnormal) Range: 18-29 Chloride, Serum 101 mmol/L (Normal) Range: 97-108 Potassium, Serum 4.6 mmol/L (Normal) Range: 3.5-5.2 Sodium, Serum 140 mmol/L (Normal) Range: 134-144 BUN/Creatinine Ratio 16 (Normal) Range: 10-22 eGFR If Africn Am 77 mL/min/1.73 (Normal) eGFR If NonAfricn Am 66 mL/min/1.73 (Normal) Creatinine, Serum 1.11 mg/dL (Normal) Range: 0.76-1.27 BUN 18 mg/dL (Normal) Range: 8-27 Glucose, Serum 113 mg/dL (Abnormal) Range: 65-99 17-Ryw-17464:17 CBC W/AUTO DIFF WBC Comments: PATIENT NOT FASTINGPERFORMED BY: LabCoGreystone Park Psychiatric HospitalGazpxd7341 [facility] [id number] Information: [id number] (24095) Immature Grans (Abs) OTHER {x10E3/uL} (Normal) Range: 0.0-0.1 Immature Granulocytes OTHER % (Normal) Baso (Absolute) OTHER {x10E3/uL} (Normal) Range: 0.0-0.2 Eos (Absolute) OTHER {x10E3/uL} (Normal) Range: 0.0-0.4 Monocytes(Absolute) OTHER {x10E3/uL} (Normal) Range: 0.1-0.9 Lymphs (Absolute) OTHER {x10E3/uL} (Normal) Range: 0.7-3.1 Neutrophils (Absolute) OTHER {x10E3/uL} (Normal) Range: 1.4-7.0 Basos OTHER % (Normal) Eos OTHER % (Normal) Monocytes OTHER % (Normal) Lymphs OTHER % (Normal) Neutrophils OTHER % (Normal) Platelets OTHER {x10E3/uL} (Normal) Range: 150-379 RDW OTHER % (Normal) Range: 12.3-15.4 MCHC OTHER g/dL (Normal) Range: 31.5-35.7 MCH OTHER pg (Normal) Range: 26.6-33.0 MCV OTHER fL (Normal) Range: 79-97 Hematocrit OTHER % (Normal) Range: 37.5-51.0 Hemoglobin OTHER g/dL (Normal) Range: 12.6-17.7 RBC OTHER {x10E6/uL} (Normal) Range: 4.14-5.80 WBC OTHER {x10E3/uL} (Normal) Range: 3.4-10.8 :17 LIPID PANEL (10579) Comments: PATIENT NOT FASTINGPERFORMED BY: [facility] [facility] [id number] LDL/HDL Ratio 3.0 {ratio_units} (Normal) Range: 0.0-3.6 Comments: LDL/HDL Ratio Men Women 1/2 Avg.Risk 1.0 1.5 Av g.Risk 3.6 3.2 2X Avg.Risk 6.2 5.0 3X Avg.Risk 8.0 6.1 LDL Cholesterol Calc 117 mg/dL (Abnormal) Range: 0-99 VLDL Cholesterol Meche 31 mg/dL (Normal) Range: 5-40 HDL Cholesterol 39 mg/dL (Abnormal) Comments: According to ATP-III Guidelines, HDL-C >59 mg/dL is considered anegative risk factor for CHD. Triglycerides 154 mg/dL (Abnormal) Range: 0-149 Cholesterol, Total 187 mg/dL (Normal) Range: 100-199 :17 CALCIFIDIOL (71804) VIT D 25 Comments: PATIENT NOT FASTINGPERFORMED BY: [facility]Co Jngxeg7815 [address] [facility] [id number] Vitamin D, 25-Hydroxy 56.3 ng/mL (Normal) Range: 30.0-100.0 Comments: Vitamin D deficiency has been defined by the [place] of[place] and an Endocrine Society practice guideline as alevel of serum 25-OH vitamin D less than 20 ng/mL (1,2).The Endocrine Society went on to further define vitamin Dinsufficiency as a level between 21 and 29 ng/mL (2).1. IOM ([place] of [place]). 2010. Dietary reference intakes for calcium and D. [place]: The National Academies Press.2. Sandy MF, Braulio DALTON, Darren STILL, et al. Evaluation, treatment, and prevention of vitamin D deficiency: an Endocrine Society clinical practice guideline. JCEM. 2010; 96(7):1911-30. :05 Blood Glucose , Office (09983) Blood Glucose , Office 114 (Normal) :02 HgA1C , Office (01365) HgA1C , Office 8.4 % (Abnormal) Range: 4.6 - 7.1 :02 Blood Glucose , Office (27823) Blood Glucose , Office 241 (Normal) Comments: not fasting :58 HgA1C , Office (02017) HgA1C , Office 7.9 % (Abnormal) Range: 4.6 - 7.1 :58 Blood Glucose , Office (24339) Blood Glucose , Office 135 (Normal) :40 Prostate-Specific Ag, Serum Comments: PATIENT NOT FASTINGPERFORMED BY: CarePayment70 [facility]ikoF[facility] [id number] Information: [id number] ORDER Prostate Specific Ag, 0.1 ng/mL (Normal) Range: 0.0-4.0 Serum Comments: [employer] ECLIA methodology. .According to the [place] [employer], Serum PSA shoulddecrease and remain at undetectable levels after radicalprostatectomy. The AUA defines biochemical recurrence as an initialPSA value 0.2 ng/mL or greater followed by a subsequent confirmatoryPSA value 0.2 ng/mL or greater.Values obtained with d ifferent assay methods or kits cannot be usedinterchangeably. Results cannot be interpreted as absolute evidenceof the presence or absence of malignant disease. :23 CBC With Differential/Platelet Comments: PATIENT WAS FASTINGPERFORMED BY: [facility]6370 [facility]ikoF[facility] [id number] Information: [id number] Immature Grans (Abs) 0.0 {x10E3/uL} (Normal) Range: 0.0-0.1 Immature Granulocytes 0 % (Normal) Baso (Absolute) 0.1 {x10E3/uL} (Normal) Range: 0.0-0.2 Eos (Absolute) 0.1 {x10E3/uL} (Normal) Range: 0.0-0.4 Monocytes(Absolute) 0.6 {x10E3/uL} (Normal) Range: 0.1-0.9 Lymphs (Absolute) 1.6 {x10E3/uL} (Normal) Range: 0.7-3.1 Neutrophils (Absolute) 5.0 {x10E3/uL} (Normal) Range: 1.4-7.0 Basos 1 % (Normal) Eos 2 % (Normal) Monocytes 8 % (Normal) Lymphs 21 % (Normal) Neutrophils 68 % (Normal) Platelets 288 {x10E3/uL} (Normal) Range: 150-379 RDW 13.6 % (Normal) Range: 12.3-15.4 MCHC 35.4 g/dL (Normal) Range: 31.5-35.7 MCH 31.5 pg (Normal) Range: 26.6-33.0 MCV 89 fL (Normal) Range: 79-97 Hematocrit 43.2 % (Normal) Range: 37.5-51.0 Hemoglobin 15.3 g/dL (Normal) Range: 12.6-17.7 RBC 4.85 {x10E6/uL} (Normal) Range: 4.14-5.80 WBC 7.4 {x10E3/uL} (Normal) Range: 3.4-10.8 [id number] Comp. Metabolic Panel (14) Comments: PATIENT WAS FASTINGPERFORMED BY: [facility] [id number] [facility] [id number] ALT (SGPT) 16 [iU]/L (Normal) Range: 0-44 AST (SGOT) 13 [iU]/L (Normal) Range: 0-40 Alkaline Phosphatase, 70 [iU]/L (Normal) Range: 39-117 S Bilirubin, Total 0.3 mg/dL (Normal) Range: 0.0-1.2 A/G Ratio 1.8 (Normal) Range: 1.1-2.5 Globulin, Total 2.5 g/dL (Normal) Range: 1.5-4.5 Albumin, Serum 4.6 g/dL (Normal) Range: 3.5-4.8 Protein, Total, Serum 7.1 g/dL (Normal) Range: 6.0-8.5 Calcium, Serum 9.7 mg/dL (Normal) Range: 8.6-10.2 Carbon Dioxide, Total 22 mmol/L (Normal) Range: 18-29 Chloride, Serum 97 mmol/L (Normal) Range: 97-108 Potassium, Serum 4.6 mmol/L (Normal) Range: 3.5-5.2 Sodium, Serum 137 mmol/L (Normal) Range: 134-144 BUN/Creatinine Ratio 14 (Normal) Range: 10-22 eGFR If Africn Am 103 mL/min/1.73 (Normal) eGFR If NonAfricn Am 89 mL/min/1.73 (Normal) Creatinine, Serum 0.81 mg/dL (Normal) Range: 0.76-1.27 BUN 11 mg/dL (Normal) Range: 8-27 Glucose, Serum 128 mg/dL Range: 65-99 (Abnormal) Hemoglobin A1c 8.2 % (Abnormal) Comments: PATIENT WAS FASTINGPERFORMED BY: CarePayment70 [facility] [id number] :23 Range: 4.8-5.6 Comments: . Increased risk for diabetes: 5.7 - 6.4 Diabetes: >6.4 Glycemic control for adults with diabetes: <7.0 :23 Lipid Panel With LDL/HDL Comments: PATIENT WAS FASTINGPERFORMED BY: CarePayment70 [facility] [id number] Ratio LDL/HDL Ratio 2.2 {ratio_units} (Normal) Range: 0.0-3.6 Comments: LDL/HDL Ratio Men Women 1/2 Avg.Risk 1.0 1.5 Av g.Risk 3.6 3.2 2X Avg.Risk 6.2 5.0 3X Avg.Risk 8.0 6.1 LDL Cholesterol Calc 85 mg/dL (Normal) Range: 0-99 VLDL Cholesterol Meche 35 mg/dL (Normal) Range: 5-40 HDL Cholesterol 39 mg/dL (Abnormal) Comments: According to ATP-III Guidelines, HDL-C >59 mg/dL is considered anegative risk factor for CHD. Triglycerides 173 mg/dL (Abnormal) Range: 0-149 Cholesterol, Total 159 mg/dL (Normal) Range: 100-199 :23 Microalb/Creat Ratio, Randm Ur Comments: PATIENT WAS FASTINGPERFORMED BY: VocabGreystone Park Psychiatric HospitalRmpfql0900 [facility] [id number] Microalb/Creat Ratio 78.4 {mg/g_creat} (Abnormal) Range: 0.0-30.0 Microalbumin, Urine 66.5 ug/mL (Abnormal) Range: 0.0-17.0 Creatinine, Urine 84.8 mg/dL (Normal) Range: 22.0-328.0 :23 Microscopic Examination Comments: PATIENT WAS FASTINGPERFORMED BY: VocabGreystone Park Psychiatric HospitalSmxskw6775 [facility] [id number] Bacteria Few (Normal) Mucus Threads Present (Normal) Epithelial Cells (non 0-10 {/hpf} Range: 0 - 10 renal) (Normal) RBC 0-2 {/hpf} (Normal) Range: 0 - 2 WBC 6-10 {/hpf} Range: 0 - 5 (Abnormal) TSH 1.390 {uIU/mL} Comments: PATIENT WAS FASTINGPERFORMED BY: [facility]ELINKCorewell [facility] Hospital6370 [facility] [id number] :23 (Normal) Range: 0.450-4.500 :23 Urinalysis, Complete Comments: PATIENT WAS FASTINGPERFORMED BY: GENELINKCorewell Health Zeeland Hospital6370 [facility] [id number] Microscopic Examination See below: (Normal) Comments: Microscopic was indicated and was performed. Nitrite, Urine Positive (Abnormal) Urobilinogen,Semi-Qn 1.0 mg/dL (Normal) Range: 0.0-1.9 Bilirubin Negative (Normal) Occult Blood Negative (Normal) Ketones Negative (Normal) Glucose Negative (Normal) Protein Trace (Normal) WBC Esterase Negative (Normal) Appearance Clear (Normal) Urine-Color Yellow (Normal) pH 7.0 (Normal) Range: 5.0-7.5 Specific [place] 1.017 (Normal) Range: 1.005-1.030 Vitamin D, 25-Hydroxy 65.7 ng/mL (Normal) Comments: PATIENT WAS FASTINGPERFORMED BY: BEATA Joseph6370 [facility] [id number] :23 Range: 30.0-100.0 Comments: Vitamin D deficiency has been defined by the [place] of[place]icine and an Endocrine Society practice guideline as alevel of serum 25-OH vitamin D less than 20 ng/mL (1,2).The Endocrine Society went on to further define vitamin Dinsufficiency as a level between 21 and 29 ng/mL (2).1. IOM ([place] of [employer]). 2010. Dietary reference intakes for calcium and D. [place]: The National AcademGreen[place] Press.2. Braulio Evans, Darren STILL, et al. Evaluation, treatment, and prevention of vitamin D deficiency: an Endocrine Society clinical practice guideline. JCEM. 2010; 96(7):191-. :56 CALCIFIDIOL (29417) VIT D 25 Comments: do in june 2014; PATIENT NOT FASTINGPERFORMED BY: Vocab Vdiuin9742 [facility] [id number] Vitamin D, 25-Hydroxy 23.2 ng/mL (Abnormal) Range: 30.0-100.0 Comments: Vitamin D deficiency has been defined by the [place] of[place] and an Endocrine Society practice guideline as alevel of serum 25-OH vitamin D less than 20 ng/mL (1,2).The Endocrine Society went on to further define vitamin Dinsufficiency as a level between 21 and 29 ng/mL (2).1. IOM ([place]). 2010. Dietary reference intakes for calcium and D. [place]: The National Academies Press.2. Braulio Evans, Darren STILL, et al. Evaluation, treatment, and prevention of vitamin D deficiency: an Endocrine Society clinical practice guideline. JCEM. 2010; 96(7):1911-. :56 T4, FREE (THYROXINE) Comments: PATIENT NOT FASTINGPERFORMED BY: [facility]6370 [facility] [id number] Information: [id number] (83356) T4,Free(Direct) 1.07 ng/dL (Normal) Range: 0.82-1.77 :56 T3, FREE (TRIDOTHYRONINE) (02008) Comments: PATIENT NOT FASTINGPERFORMED BY: [facility]6370 [facility] [id number] Triiodothyronine,Free,Serum 2.8 pg/mL (Normal) Range: 2.0-4.4 :56 TSH (98955) Comments: PATIENT NOT FASTINGPERFORMED BY: [facility]6370 [facility] [id number] TSH 1.790 {uIU/mL} (Normal) Range: 0.450-4.500 :57 HgA1C , Office (20334) HgA1C , Office 7.0 % (Normal) Range: 4.6 - 7.1 :57 Blood Glucose , Office (71913) Blood Glucose , Office 146 (Normal) :24 Microscopic Examination Comments: PATIENT NOT FASTINGPERFORMED BY: [facility]6370 [facility] [id number] Bacteria Few (Normal) Mucus Threads Present (Normal) Epithelial Cells (non renal) 0-10 {/hpf} (Normal) Range: 0 - 10 RBC 0-2 {/hpf} (Normal) Range: 0 - 2 WBC 0-5 {/hpf} (Normal) Range: 0 - 5 :24 Vitamin D Hydroxy (15223) Comments: PATIENT NOT FASTINGPERFORMED BY: LabCorewell Health [facility] Hospital6370 [facility] [id number] Vitamin D, 25-Hydroxy 22.8 ng/mL (Abnormal) Range: 30.0-100.0 Comments: Vitamin D deficiency has been defined by the [place] of[place] and an Endocrine Society practice guideline as alevel of serum 25-OH vitamin D less than 20 ng/mL (1,2).The Endocrine Society went on to further define vitamin Dinsufficiency as a level between 21 and 29 ng/mL (2).1. IOM ([place]). 2010. Dietary reference intakes for calcium and D. [place]: The National Academies Press.2. Sandy MF, Braulio DALTON, Darren STILL, et al. Evaluation, treatment, and prevention of vitamin D deficiency: an Endocrine Society clinical practice guideline. JCEM. 2010; 96(7):1911-30. :24 TSH (94559) Comments: PATIENT NOT FASTINGPERFORMED BY: [facility]6370 [facility] [id number] TSH 0.812 {uIU/mL} (Normal) Range: 0.450-4.500 :24 URINALYSIS, W/ MICRO (53813) Comments: PATIENT NOT FASTINGPERFORMED BY: [facility]6370 [facility] [id number] Microscopic Examination See below: (Normal) Comments: Microscopic was indicated and was performed. Microscopic Examination MICRON (Normal) Comments: Microscopic follows if indicated. Nitrite, Urine Negative (Normal) Urobilinogen,Semi-Qn 0.2 mg/dL (Normal) Range: 0.0-1.9 Bilirubin Negative (Normal) Occult Blood Negative (Normal) Ketones Negative (Normal) Glucose Negative (Normal) Protein Negative (Normal) WBC Esterase Negative (Normal) Appearance Clear (Normal) Urine-Color Yellow (Normal) pH 6.5 (Normal) Range: 5.0-7.5 Specific [place] 1.020 (Normal) Range: 1.005-1.030 :24 MICROALBUMIN: CREATININE RATIO Comments: PATIENT NOT FASTINGPERFORMED BY: [facility]6370 [facility] [id number] (03722) AND (63751) Microalb/Creat Ratio 40.9 {mg/g_creat} (Abnormal) Range: 0.0-30.0 Microalbumin, Urine 42.8 ug/mL (Abnormal) Range: 0.0-17.0 Creatinine, Urine 104.7 mg/dL (Normal) Range: 22.0-328.0 :24 METABOLIC PANEL, COMPREHENSIVE Comments: PATIENT NOT FASTINGPERFORMED BY: VocabGreystone Park Psychiatric HospitalJrsecr7140 [facility] [id number] (79537) ALT (SGPT) 19 [iU]/L (Normal) Range: 0-44 AST (SGOT) 14 [iU]/L (Normal) Range: 0-40 Alkaline Phosphatase, S 69 [iU]/L (Normal) Range: 39-117 Bilirubin, Total 0.4 mg/dL (Normal) Range: 0.0-1.2 A/G Ratio 1.9 (Normal) Range: 1.1-2.5 Globulin, Total 2.3 g/dL (Normal) Range: 1.5-4.5 Albumin, Serum 4.4 g/dL (Normal) Range: 3.5-4.8 Protein, Total, Serum 6.7 g/dL (Normal) Range: 6.0-8.5 Calcium, Serum 9.5 mg/dL (Normal) Range: 8.6-10.2 Carbon Dioxide, Total 24 mmol/L (Normal) Range: 18-29 Chloride, Serum 98 mmol/L (Normal) Range: 97-108 Potassium, Serum 4.9 mmol/L (Normal) Range: 3.5-5.2 Sodium, Serum 137 mmol/L (Normal) Range: 134-144 BUN/Creatinine Ratio 13 (Normal) Range: 10-22 eGFR If Africn Am 100 mL/min/1.73 (Normal) eGFR If NonAfricn Am 86 mL/min/1.73 (Normal) Creatinine, Serum 0.90 mg/dL (Normal) Range: 0.76-1.27 BUN 12 mg/dL (Normal) Range: 8-27 Glucose, Serum 135 mg/dL (Abnormal) Range: 65-99 :24 LIPID PANEL (18747) Comments: PATIENT NOT FASTINGPERFORMED BY: VocabGreystone Park Psychiatric HospitalNbzvoc0097 [facility] [id number] LDL/HDL Ratio 1.9 {ratio_units} (Normal) Range: 0.0-3.6 Comments: LDL/HDL Ratio Men Women 1/2 Avg.Risk 1.0 1.5 Av g.Risk 3.6 3.2 2X Avg.Risk 6.2 5.0 3X Avg.Risk 8.0 6.1 LDL Cholesterol Calc 96 mg/dL (Normal) Range: 0-99 VLDL Cholesterol Meche 21 mg/dL (Normal) Range: 5-40 HDL Cholesterol 51 mg/dL (Normal) Comments: According to ATP-III Guidelines, HDL-C >59 mg/dL is considered anegative risk factor for CHD. Triglycerides 103 mg/dL (Normal) Range: 0-149 Cholesterol, Total 168 mg/dL (Normal) Range: 100-199 76-Xvx-12165:24 CBC W/AUTO DIFF WBC Comments: PATIENT NOT FASTINGPERFORMED BY: [facility] Hwieta8477 [facility] [id number] Information: [id number] (95028) Immature Grans (Abs) 0.0 {x10E3/uL} (Normal) Range: 0.0-0.1 Immature Granulocytes 0 % (Normal) Baso (Absolute) 0.0 {x10E3/uL} (Normal) Range: 0.0-0.2 Eos (Absolute) 0.1 {x10E3/uL} (Normal) Range: 0.0-0.4 Monocytes(Absolute) 0.7 {x10E3/uL} (Normal) Range: 0.1-0.9 Lymphs (Absolute) 1.6 {x10E3/uL} (Normal) Range: 0.7-3.1 Neutrophils (Absolute) 6.7 {x10E3/uL} (Normal) Range: 1.4-7.0 Basos 0 % (Normal) Eos 1 % (Normal) Monocytes 8 % (Normal) Lymphs 17 % (Normal) Neutrophils 74 % (Normal) Platelets 265 {x10E3/uL} (Normal) Range: 150-379 RDW 14.3 % (Normal) Range: 12.3-15.4 MCHC 33.6 g/dL (Normal) Range: 31.5-35.7 MCH 30.3 pg (Normal) Range: 26.6-33.0 MCV 90 fL (Normal) Range: 79-97 Hematocrit 44.3 % (Normal) Range: 37.5-51.0 Hemoglobin 14.9 g/dL (Normal) Range: 12.6-17.7 RBC 4.91 {x10E6/uL} (Normal) Range: 4.14-5.80 WBC 9.2 {x10E3/uL} (Normal) Range: 3.4-10.8 :54 FECAL OCCULT- Tubes sent home (75405) FECAL OCCULT HGB ASSAY, QUAL, 1-3 SIMULTANEOU negative (Normal) :04 Microscopic Examination Comments: PATIENT WAS FASTINGPERFORMED BY: Vocab [employer] [facility] [id number] Yeast Present (Abnormal) Bacteria Few (Normal) Mucus Threads Present (Normal) Epithelial Cells (non renal) None seen {/hpf} (Normal) Range: 0 - 10 RBC 0-3 {/hpf} (Normal) Range: 0 - 3 WBC 0-5 {/hpf} (Normal) Range: 0 - 5 :52 TSH (69603) Comments: PATIENT WAS FASTINGPERFORMED BY: [employer]ocab [employer] [facility] [id number] TSH 3.370 {uIU/mL} (Normal) Range: 0.450-4.500 :52 URINALYSIS, W/ MICRO (28274) Comments: PATIENT WAS FASTINGPERFORMED BY: Vocab [employer] [facility] [id number] Microscopic Examination See below: (Normal) Nitrite, Urine Negative (Normal) Urobilinogen,Semi-Qn 0.2 mg/dL (Normal) Range: 0.0-1.9 Bilirubin Negative (Normal) Occult Blood Negative (Normal) Ketones Negative (Normal) Glucose Negative (Normal) Protein 1+ (Abnormal) WBC Esterase Negative (Normal) Appearance Clear (Normal) Urine-Color Yellow (Normal) pH 6.0 (Normal) Range: 5.0-7.5 Specific [place] 1.027 (Normal) Range: 1.005-1.030 :52 MICROALBUMIN: CREATININE RATIO Comments: PATIENT WAS FASTINGPERFORMED BY: Vocab Lkswxb3463 [facility] [id number] (68396) AND (57888) Creatinine, Urine 179.7 mg/dL (Normal) Range: 22.0-328.0 Microalb/Creat Ratio 71.7 {mg/g_creat} (Abnormal) Range: 0.0-30.0 Microalbumin, Urine 128.8 ug/mL (Abnormal) Range: 0.0-17.0 :52 METABOLIC PANEL, COMPREHENSIVE Comments: PATIENT WAS FASTINGPERFORMED BY: CarePayment70 [facility] [id number] (19618) ALT (SGPT) 24 [iU]/L (Normal) Range: 0-44 AST (SGOT) 16 [iU]/L (Normal) Range: 0-40 Alkaline Phosphatase, S 79 [iU]/L (Normal) Range: 39-117 Bilirubin, Total 0.5 mg/dL (Normal) Range: 0.0-1.2 A/G Ratio 1.8 (Normal) Range: 1.1-2.5 Globulin, Total 2.6 g/dL (Normal) Range: 1.5-4.5 Albumin, Serum 4.6 g/dL (Normal) Range: 3.5-4.8 Protein, Total, Serum 7.2 g/dL (Normal) Range: 6.0-8.5 Calcium, Serum 10.1 mg/dL (Normal) Range: 8.6-10.2 Carbon Dioxide, Total 21 mmol/L (Normal) Range: 19-28 Chloride, Serum 100 mmol/L (Normal) Range: 97-108 Potassium, Serum 4.5 mmol/L (Normal) Range: 3.5-5.2 Sodium, Serum 137 mmol/L (Normal) Range: 134-144 BUN/Creatinine Ratio 24 (Abnormal) Range: 10-22 eGFR If Africn Am 92 mL/min/1.73 (Normal) eGFR If NonAfricn Am 80 mL/min/1.73 (Normal) Creatinine, Serum 0.96 mg/dL (Normal) Range: 0.76-1.27 BUN 23 mg/dL (Normal) Range: 8-27 Glucose, Serum 143 mg/dL (Abnormal) Range: 65-99 :52 LIPID PANEL (03281) Comments: PATIENT WAS FASTINGPERFORMED BY: [facility]6370 [facility] [id number] LDL/HDL Ratio 1.9 {ratio_units} (Normal) Range: 0.0-3.6 LDL Cholesterol Calc 91 mg/dL (Normal) Range: 0-99 VLDL Cholesterol Meche 25 mg/dL (Normal) Range: 5-40 HDL Cholesterol 47 mg/dL (Normal) Comments: According to ATP-III Guidelines, HDL-C >59 mg/dL is considered anegative risk factor for CHD. Cholesterol, Total 163 mg/dL (Normal) Range: 100-199 Triglycerides 124 mg/dL (Normal) Range: 0-149 :52 CBC WITH MANUAL DIFF Comments: PATIENT WAS FASTINGPERFORMED BY: LabCoGreystone Park Psychiatric HospitalNwvzpe3896 [facility] [id number] Information: [id number] (59709) Immature Grans (Abs) 0.0 {x10E3/uL} (Normal) Range: 0.0-0.1 Immature Granulocytes 0 % (Normal) Range: 0-2 Baso (Absolute) 0.1 {x10E3/uL} (Normal) Range: 0.0-0.2 Eos (Absolute) 0.2 {x10E3/uL} (Normal) Range: 0.0-0.4 Monocytes(Absolute) 0.9 {x10E3/uL} (Normal) Range: 0.1-0.9 Lymphs (Absolute) 1.8 {x10E3/uL} (Normal) Range: 0.7-3.1 Neutrophils (Absolute) 5.9 {x10E3/uL} (Normal) Range: 1.4-7.0 Basos 1 % (Normal) Range: 0-3 Eos 2 % (Normal) Range: 0-5 Monocytes 10 % (Normal) Range: 4-12 Lymphs 20 % (Normal) Range: 14-46 Neutrophils 67 % (Normal) Range: 40-74 Platelets 250 {x10E3/uL} (Normal) Range: 155-379 RDW 15.0 % (Normal) Range: 12.3-15.4 MCHC 34.8 g/dL (Normal) Range: 31.5-35.7 MCH 31.3 pg (Normal) Range: 26.6-33.0 MCV 90 fL (Normal) Range: 79-97 Hematocrit 45.4 % (Normal) Range: 37.5-51.0 Hemoglobin 15.8 g/dL (Normal) Range: 12.6-17.7 RBC 5.04 {x10E6/uL} (Normal) Range: 4.14-5.80 WBC 8.8 {x10E3/uL} (Normal) Range: 3.4-10.8 :00 Blood Glucose , Office (46744) Blood Glucose , Office 129 (Normal) Comments: [id number] at home this am :00 HgA1C , Office (24152) HgA1C , Office 7.1 % (Normal) Range: 4.6 - 7.1 :06 Blood Glucose , Office (69923) Blood Glucose , Office 125 (Normal) :06 HgA1C , Office (70769) HgA1C , Office 6.5 % (Normal) Range: 4.6 - 7.1 :23 Microscopic Examination Comments: PATIENT WAS FASTINGPERFORMED BY: CarePayment70 [facility] [id number] Bacteria None seen (Normal) Mucus Threads Present (Normal) Epithelial Cells (non renal) 0-10 {/hpf} (Normal) Range: 0 - 10 RBC 0-3 {/hpf} (Normal) Range: 0 - 3 WBC 0-5 {/hpf} (Normal) Range: 0 - 5 :23 LIPID PANEL (15534) Comments: PATIENT WAS FASTINGPERFORMED BY: CarePayment70 [facility] [id number] LDL/HDL Ratio 1.9 {ratio_units} (Normal) Range: 0.0-3.6 LDL Cholesterol Calc 80 mg/dL (Normal) Range: 0-99 VLDL Cholesterol Meche 26 mg/dL (Normal) Range: 5-40 HDL Cholesterol 43 mg/dL (Normal) Comments: According to ATP-III Guidelines, HDL-C >59 mg/dL is considered anegative risk factor for CHD. Triglycerides 128 mg/dL (Normal) Range: 0-149 Cholesterol, Total 149 mg/dL (Normal) Range: 100-199 :23 TSH (07601) Comments: PATIENT WAS FASTINGPERFORMED BY: [employer] Crhcig2973 [facility] [id number] TSH 1.190 {uIU/mL} (Normal) Range: 0.450-4.500 :23 URINALYSIS, W/ MICRO (46707) Comments: PATIENT WAS FASTINGPERFORMED BY: [facility]6370 [facility] [id number] Microscopic Examination See below: (Normal) Microscopic Examination MICRON (Normal) Comments: Microscopic follows if indicated. Nitrite, Urine Negative (Normal) Urobilinogen,Semi-Qn 0.2 mg/dL (Normal) Range: 0.0-1.9 Bilirubin Negative (Normal) Occult Blood Negative (Normal) Ketones Trace (Abnormal) Glucose Negative (Normal) Protein Negative (Normal) WBC Esterase Negative (Normal) Appearance Clear (Normal) Urine-Color Yellow (Normal) pH 5.5 (Normal) Range: 5.0-7.5 Specific [place] 1.017 (Normal) Range: 1.005-1.030 :23 MICROALBUMIN: CREATININE RATIO Comments: PATIENT WAS FASTINGPERFORMED BY: VocabGreystone Park Psychiatric HospitalIcevhq7522 [facility] [id number] (29704) AND (52895) Microalb/Creat Ratio 20.4 {mg/g_creat} (Normal) Range: 0.0-30.0 Microalbumin, Urine 18.6 ug/mL (Abnormal) Range: 0.0-17.0 Creatinine, Urine 91.2 mg/dL (Normal) Range: 22.0-328.0 36-Fow-111498:23 METABOLIC PANEL, COMPREHENSIVE Comments: PATIENT WAS FASTINGPERFORMED BY: VocabGreystone Park Psychiatric HospitalXvqbey6219 [facility] [id number] (88568) ALT (SGPT) 26 [iU]/L (Normal) Range: 0-44 AST (SGOT) 25 [iU]/L (Normal) Range: 0-40 Alkaline Phosphatase, S 70 [iU]/L (Normal) Range: 44-103 Bilirubin, Total 0.5 mg/dL (Normal) Range: 0.0-1.2 A/G Ratio 1.5 (Normal) Range: 1.1-2.5 Globulin, Total 3.0 g/dL (Normal) Range: 1.5-4.5 Albumin, Serum 4.6 g/dL (Normal) Range: 3.6-4.8 Protein, Total, Serum 7.6 g/dL (Normal) Range: 6.0-8.5 Calcium, Serum 10.0 mg/dL (Normal) Range: 8.6-10.2 Carbon Dioxide, Total 20 mmol/L (Normal) Range: 19-28 Chloride, Serum 100 mmol/L (Normal) Range: 97-108 Potassium, Serum 4.5 mmol/L (Normal) Range: 3.5-5.2 Sodium, Serum 136 mmol/L (Normal) Range: 134-144 BUN/Creatinine Ratio 13 (Normal) Range: 10-22 eGFR If Africn Am 103 mL/min/1.73 (Normal) eGFR If NonAfricn Am 89 mL/min/1.73 (Normal) Creatinine, Serum 0.85 mg/dL (Normal) Range: 0.76-1.27 BUN 11 mg/dL (Normal) Range: 8-27 Glucose, Serum 99 mg/dL (Normal) Range: 65-99 62-Vqo-703846:23 CBC WITH MANUAL DIFF Comments: PATIENT WAS FASTINGPERFORMED BY: [facility] Vmiekb3945 [facility] [id number] Information: [id number] (73137) Immature Grans (Abs) 0.0 {x10E3/uL} (Normal) Range: 0.0-0.1 Immature Granulocytes 0 % (Normal) Range: 0-2 Baso (Absolute) 0.0 {x10E3/uL} (Normal) Range: 0.0-0.2 Eos (Absolute) 0.1 {x10E3/uL} (Normal) Range: 0.0-0.4 Monocytes(Absolute) 0.6 {x10E3/uL} (Normal) Range: 0.1-0.9 Lymphs (Absolute) 2.1 {x10E3/uL} (Normal) Range: 0.7-3.1 Neutrophils (Absolute) 4.9 {x10E3/uL} (Normal) Range: 1.4-7.0 Basos 0 % (Normal) Range: 0-3 Eos 2 % (Normal) Range: 0-5 Monocytes 8 % (Normal) Range: 4-12 Lymphs 27 % (Normal) Range: 14-46 Neutrophils 63 % (Normal) Range: 40-74 Platelets 295 {x10E3/uL} (Normal) Range: 155-379 RDW 13.8 % (Normal) Range: 12.3-15.4 MCH 30.6 pg (Normal) Range: 26.6-33.0 MCHC 34.4 g/dL (Normal) Range: 31.5-35.7 MCV 89 fL (Normal) Range: 79-97 Hematocrit 43.9 % (Normal) Range: 37.5-51.0 Hemoglobin 15.1 g/dL (Normal) Range: 12.6-17.7 RBC 4.94 {x10E6/uL} (Normal) Range: 4.14-5.80 WBC 7.8 {x10E3/uL} (Normal) Range: 3.4-10.8 39-Sav-264167:57 FECAL OCCULT- Tubes sent home (16769) FECAL OCCULT HGB ASSAY, QUAL, 1-3 SIMULTANEOU negative (Normal) :37 HgA1C , Office (67277) HgA1C , Office 6.5 % (Normal) Range: 4.6 - 7.1 :37 Blood Glucose , Office (47008) Blood Glucose , Office 103 (Normal) :24 Microscopic Examination Comments: PATIENT WAS FASTINGPERFORMED BY: CarePayment70 [facility] [id number] Bacteria Few (Normal) Mucus Threads Present (Normal) Epithelial Cells (non renal) 0-10 {/hpf} (Normal) Range: 0 - 10 RBC 4-10 {/hpf} (Abnormal) Range: 0 - 3 WBC 11-30 {/hpf} (Abnormal) Range: 0 - 5 :24 TSH (70105) Comments: PATIENT WAS FASTINGPERFORMED BY: CarePayment70 [facility] [id number] TSH 2.300 {uIU/mL} (Normal) Range: 0.450-4.500 :24 URINALYSIS, W/ MICRO (70538) Comments: PATIENT WAS FASTINGPERFORMED BY: miDriveGranville Medical Centerin [place] [id number] Microscopic Examination See below: (Normal) Nitrite, Urine Positive (Abnormal) Urobilinogen,Semi-Qn 0.2 mg/dL (Normal) Range: 0.0-1.9 Bilirubin Negative (Normal) Occult Blood 1+ (Abnormal) Ketones Trace (Abnormal) Glucose Negative (Normal) Protein Trace (Normal) WBC Esterase 2+ (Abnormal) Appearance Clear (Normal) Urine-Color Yellow (Normal) pH 5.5 (Normal) Range: 5.0-7.5 Specific [place] 1.026 (Normal) Range: 1.005-1.030 31-Aug-20129:24 METABOLIC PANEL, COMPREHENSIVE Comments: PATIENT WAS FASTINGPERFORMED BY: LabCoGreystone Park Psychiatric HospitalQqpwim1506 [facility] [id number] (48815) ALT (SGPT) 31 [iU]/L (Normal) Range: 0-44 AST (SGOT) 21 [iU]/L (Normal) Range: 0-40 Alkaline Phosphatase, S 63 [iU]/L (Normal) Range: 25-160 Bilirubin, Total 0.6 mg/dL (Normal) Range: 0.0-1.2 A/G Ratio 1.7 (Normal) Range: 1.1-2.5 Globulin, Total 2.8 g/dL (Normal) Range: 1.5-4.5 Albumin, Serum 4.7 g/dL (Normal) Range: 3.6-4.8 Protein, Total, Serum 7.5 g/dL (Normal) Range: 6.0-8.5 Calcium, Serum 9.8 mg/dL (Normal) Range: 8.6-10.2 Carbon Dioxide, Total 19 mmol/L (Abnormal) Range: 20-32 Chloride, Serum 104 mmol/L (Normal) Range: 97-108 Potassium, Serum 4.3 mmol/L (Normal) Range: 3.5-5.2 Sodium, Serum 140 mmol/L (Normal) Range: 134-144 BUN/Creatinine Ratio 21 (Normal) Range: 10-22 eGFR If Africn Am 99 mL/min/1.73 (Normal) eGFR If NonAfricn Am 86 mL/min/1.73 (Normal) Creatinine, Serum 0.91 mg/dL (Normal) Range: 0.76-1.27 BUN 19 mg/dL (Normal) Range: 8-27 Glucose, Serum 138 mg/dL (Abnormal) Range: 65-99 :24 CBC WITH MANUAL DIFF Comments: PATIENT WAS FASTINGPERFORMED BY: LabCoGreystone Park Psychiatric HospitalPmsims9249 [facility] [id number] Information: [id number] (09647) Immature Grans (Abs) 0.0 {x10E3/uL} (Normal) Range: 0.0-0.1 Immature Granulocytes 0 % (Normal) Range: 0-2 Baso (Absolute) 0.0 {x10E3/uL} (Normal) Range: 0.0-0.2 Eos (Absolute) 0.1 {x10E3/uL} (Normal) Range: 0.0-0.4 Monocytes(Absolute) 0.7 {x10E3/uL} (Normal) Range: 0.1-1.0 Lymphs (Absolute) 1.6 {x10E3/uL} (Normal) Range: 0.7-4.5 Neutrophils (Absolute) 5.4 {x10E3/uL} (Normal) Range: 1.8-7.8 Basos 0 % (Normal) Range: 0-3 Eos 2 % (Normal) Range: 0-7 Monocytes 9 % (Normal) Range: 4-13 Lymphs 21 % (Normal) Range: 14-46 Neutrophils 68 % (Normal) Range: 40-74 Platelets 280 {x10E3/uL} (Normal) Range: 140-415 RDW 13.7 % (Normal) Range: 12.3-15.4 MCHC 34.2 g/dL (Normal) Range: 31.5-35.7 MCH 31.0 pg (Normal) Range: 26.6-33.0 MCV 91 fL (Normal) Range: 79-97 Hematocrit 45.0 % (Normal) Range: 37.5-51.0 Hemoglobin 15.4 g/dL (Normal) Range: 12.6-17.7 RBC 4.96 {x10E6/uL} (Normal) Range: 4.14-5.80 WBC 8.0 {x10E3/uL} (Normal) Range: 4.0-10.5 :24 MICROALBUMIN: CREATININE RATIO Comments: PATIENT WAS FASTINGPERFORMED BY: [id number] [id number] ([id number]) AND ([id number]) Microalb/Creat Ratio 41.7 {mg/g_creat} (Abnormal) Range: 0.0-30.0 Microalbumin, Urine 73.8 ug/mL (Abnormal) Range: 0.0-17.0 Creatinine, Urine 176.9 mg/dL (Normal) Range: 22.0-328.0 :24 LIPID PANEL ([id number]) Comments: PATIENT WAS FASTINGPERFORMED BY: [facility] [id number] [facility] [id number] LDL/HDL Ratio 2.2 {ratio_units} (Normal) Range: 0.0-3.6 LDL Cholesterol Calc 83 mg/dL (Normal) Range: 0-99 VLDL Cholesterol [place] 27 mg/dL (Normal) Range: 5-40 Cholesterol, Total 147 mg/dL (Normal) Range: 100-199 HDL Cholesterol 37 mg/dL (Abnormal) Comments: According to ATP-III Guidelines, HDL-C >59 mg/dL is considered anegative risk factor for CHD. Triglycerides 136 mg/dL (Normal) Range: 0-149 :06 HgA1C , Office (30870) HgA1C , Office 6.6 % (Normal) Range: 4.6 - 7.1 :06 Blood Glucose , Office (58905) Blood Glucose , Office 98 (Normal) :59 Blood Glucose , Office (93338) Blood Glucose , Office 235 (Normal) 9-Rmk-456575:04 TSH (33551) Comments: PATIENT WAS FASTINGPERFORMED BY: LabCoGreystone Park Psychiatric HospitalDduhdn0270 [facility] [id number] TSH 1.710 {uIU/mL} (Normal) Range: 0.450-4.500 :04 METABOLIC PANEL, COMPREHENSIVE Comments: PATIENT WAS FASTINGPERFORMED BY: LabCoGreystone Park Psychiatric HospitalCeqjzk2698 [facility] [id number] (36094) ALT (SGPT) 30 [iU]/L (Normal) Range: 0-44 AST (SGOT) 27 [iU]/L (Normal) Range: 0-40 Alkaline Phosphatase, S 65 [iU]/L (Normal) Range: 25-160 Bilirubin, Total 0.6 mg/dL (Normal) Range: 0.0-1.2 A/G Ratio 1.6 (Normal) Range: 1.1-2.5 Globulin, Total 2.8 g/dL (Normal) Range: 1.5-4.5 Albumin, Serum 4.5 g/dL (Normal) Range: 3.6-4.8 Protein, Total, Serum 7.3 g/dL (Normal) Range: 6.0-8.5 Calcium, Serum 9.6 mg/dL (Normal) Range: 8.6-10.2 Carbon Dioxide, Total 21 mmol/L (Normal) Range: 20-32 Chloride, Serum 100 mmol/L (Normal) Range: 97-108 Potassium, Serum 4.6 mmol/L (Normal) Range: 3.5-5.2 Sodium, Serum 136 mmol/L (Normal) Range: 134-144 BUN/Creatinine Ratio 16 (Normal) Range: 10-22 eGFR If Africn Am 96 mL/min/1.73 (Normal) eGFR If NonAfricn Am 83 mL/min/1.73 (Normal) Creatinine, Serum 0.93 mg/dL (Normal) Range: 0.76-1.27 BUN 15 mg/dL (Normal) Range: 8-27 Glucose, Serum 196 mg/dL (Abnormal) Range: 65-99 :04 LIPID PANEL (74446) Comments: PATIENT WAS FASTINGPERFORMED BY: LabCoGreystone Park Psychiatric HospitalGhbeso6369 [facility] [id number] LDL/HDL Ratio 2.3 {ratio_units} (Normal) Range: 0.0-3.6 LDL Cholesterol Calc 85 mg/dL (Normal) Range: 0-99 VLDL Cholesterol Meche 33 mg/dL (Normal) Range: 5-40 HDL Cholesterol 37 mg/dL (Abnormal) Comments: According to ATP-III Guidelines, HDL-C >59 mg/dL is considered anegative risk factor for CHD. Triglycerides 166 mg/dL (Abnormal) Range: 0-149 Cholesterol, Total 155 mg/dL (Normal) Range: 100-199 :04 CBC WITH MANUAL DIFF Comments: PATIENT WAS FASTINGPERFORMED BY: BEATA LabCorewell [facility] Hospital6370 [facility] [id number] Information: [id number] (11441) Immature Grans (Abs) 0.0 {x10E3/uL} (Normal) Range: 0.0-0.1 Immature Granulocytes 0 % (Normal) Range: 0-2 Baso (Absolute) 0.1 {x10E3/uL} (Normal) Range: 0.0-0.2 Eos (Absolute) 0.6 {x10E3/uL} (Abnormal) Range: 0.0-0.4 Monocytes(Absolute) 0.7 {x10E3/uL} (Normal) Range: 0.1-1.0 Lymphs (Absolute) 1.5 {x10E3/uL} (Normal) Range: 0.7-4.5 Neutrophils (Absolute) 4.3 {x10E3/uL} (Normal) Range: 1.8-7.8 Basos 1 % (Normal) Range: 0-3 Eos 8 % (Abnormal) Range: 0-7 Monocytes 10 % (Normal) Range: 4-13 Lymphs 21 % (Normal) Range: 14-46 Neutrophils 60 % (Normal) Range: 40-74 Platelets 284 {x10E3/uL} (Normal) Range: 140-415 RDW 13.7 % (Normal) Range: 12.3-15.4 MCHC 35.1 g/dL (Normal) Range: 31.5-35.7 MCH 31.7 pg (Normal) Range: 26.6-33.0 MCV 90 fL (Normal) Range: 79-97 Hematocrit 42.5 % (Normal) Range: 37.5-51.0 Hemoglobin 14.9 g/dL (Normal) Range: 12.6-17.7 RBC 4.70 {x10E6/uL} (Normal) Range: 4.14-5.80 WBC 7.2 {x10E3/uL} (Normal) Range: 4.0-10.5 :59 HgA1C , Office (56107) HgA1C , Office 7.2 % (Abnormal) Range: 4.6 - 7.1 :02 HgA1C , Office (65543) HgA1C , Office 8.3 % (Abnormal) Range: 4.6 - 7.1 :02 Blood Glucose , Office (09311) Blood Glucose , Office 162 (Normal) :50 Microscopic Examination Comments: PATIENT NOT FASTINGPERFORMED BY: GENELINKCorewell Health Zeeland Hospital6370 [facility] [id number] Bacteria Few (Normal) Mucus Threads Present (Normal) Epithelial Cells (non renal) None seen {/hpf} (Normal) Range: 0 - 10 RBC 0-3 {/hpf} (Normal) Range: 0 - 3 WBC 6-10 {/hpf} (Abnormal) Range: 0 - 5 :11 HgA1C , Office (69926) HgA1C , Office 6.9 % (Normal) Range: 4.6 - 7.1 :11 Blood Glucose , Office (86556) Blood Glucose , Office 115 (Normal) :50 MICROALBUMIN: CREATININE RATIO Comments: PATIENT NOT FASTINGPERFORMED BY: [facility]6370 [facility] [id number] (82908) AND (72597) Microalb/Creat Ratio 20.0 {mg/g_creat} (Normal) Range: 0.0-30.0 Creatinine, Urine 97.5 mg/dL (Normal) Range: 22.0-328.0 Microalbumin, Urine 19.5 ug/mL (Abnormal) Range: 0.0-17.0 :50 URINALYSIS, W/ MICRO Comments: PATIENT NOT FASTINGPERFORMED BY: [facility]6370 [facility] [id number] Information: [id number] (38511) Microscopic Examination See below: (Normal) Microscopic Examination MICRON (Normal) Comments: Microscopic follows if indicated. Nitrite, Urine Negative (Normal) Urobilinogen,Semi-Qn 0.2 mg/dL (Normal) Range: 0.0-1.9 Bilirubin Negative (Normal) Occult Blood Negative (Normal) Ketones Negative (Normal) Glucose Negative (Normal) Protein Negative (Normal) WBC Esterase Negative (Normal) Appearance Clear (Normal) Urine-Color Yellow (Normal) pH 6.0 (Normal) Range: 5.0-7.5 Specific [place] 1.017 (Normal) Range: 1.005-1.030 :03 TSH (48822) Comments: PATIENT WAS FASTINGPERFORMED BY: [facility]6370 [facility] [id number] TSH 3.030 {uIU/mL} (Normal) Range: 0.450-4.500 49-Adf-151246:03 METABOLIC PANEL, COMPREHENSIVE Comments: PATIENT WAS FASTINGPERFORMED BY: LabCorewell [facility] Hospital6370 [facility] [id number] (62233) ALT (SGPT) 41 [iU]/L (Normal) Range: 0-55 Alkaline Phosphatase, S 57 [iU]/L (Normal) Range: 25-160 AST (SGOT) 29 [iU]/L (Normal) Range: 0-40 Bilirubin, Total 0.5 mg/dL (Normal) Range: 0.0-1.2 A/G Ratio 1.4 (Normal) Range: 1.1-2.5 Globulin, Total 2.9 g/dL (Normal) Range: 1.5-4.5 Albumin, Serum 4.2 g/dL (Normal) Range: 3.6-4.8 Protein, Total, Serum 7.1 g/dL (Normal) Range: 6.0-8.5 Calcium, Serum 10.0 mg/dL (Normal) Range: 8.6-10.2 Carbon Dioxide, Total 23 mmol/L (Normal) Range: 20-32 Chloride, Serum 101 mmol/L (Normal) Range: 97-108 Potassium, Serum 5.0 mmol/L (Normal) Range: 3.5-5.2 Sodium, Serum 136 mmol/L (Normal) Range: 134-144 BUN/Creatinine Ratio 14 (Normal) Range: 10-22 eGFR If Africn Am 83 mL/min/1.73 (Normal) Comments: Note: A persistent eGFR <60 mL/min/1.73 m2 (3 months or more) mayindicate chronic kidney disease. An eGFR >59 mL/min/1.73 m2 with anelevated urine protein also may indicate chronic kidney disease.Calculated using CKD-EPI formula. eGFR If NonAfricn Am 72 mL/min/1.73 (Normal) Creatinine, Serum 1.06 mg/dL (Normal) Range: 0.76-1.27 BUN 15 mg/dL (Normal) Range: 8-27 Glucose, Serum 132 mg/dL (Abnormal) Range: 65-99 :03 LIPID PANEL (12758) Comments: PATIENT WAS FASTINGPERFORMED BY: Vocab Zudzlc1106 [facility] [id number] LDL Cholesterol Calc 72 mg/dL (Normal) Range: 0-99 LDL/HDL Ratio 1.8 {ratio_units} (Normal) Range: 0.0-3.6 HDL Cholesterol 40 mg/dL (Normal) Comments: According to ATP-III Guidelines, HDL-C >59 mg/dL is considered anegative risk factor for CHD. VLDL Cholesterol Meche 25 mg/dL (Normal) Range: 5-40 Triglycerides 125 mg/dL (Normal) Range: 0-149 Cholesterol, Total 137 mg/dL (Normal) Range: 100-199 73-Pgq-086001:03 CBC WITH MANUAL DIFF Comments: PATIENT WAS FASTINGPERFORMED BY: VocabGreystone Park Psychiatric HospitalEpclut0589 [facility] [id number] Information: [id number] (37856) Immature Grans (Abs) 0.0 {x10E3/uL} (Normal) Range: 0.0-0.1 Immature Granulocytes 0 % (Normal) Range: 0-2 Baso (Absolute) 0.1 {x10E3/uL} (Normal) Range: 0.0-0.2 Eos (Absolute) 0.2 {x10E3/uL} (Normal) Range: 0.0-0.4 Monocytes(Absolute) 0.7 {x10E3/uL} (Normal) Range: 0.1-1.0 Lymphs (Absolute) 1.7 {x10E3/uL} (Normal) Range: 0.7-4.5 Neutrophils (Absolute) 5.3 {x10E3/uL} (Normal) Range: 1.8-7.8 Basos 1 % (Normal) Range: 0-3 Eos 2 % (Normal) Range: 0-7 Monocytes 9 % (Normal) Range: 4-13 Lymphs 22 % (Normal) Range: 14-46 Neutrophils 66 % (Normal) Range: 40-74 Platelets 272 {x10E3/uL} (Normal) Range: 140-415 RDW 13.1 % (Normal) Range: 11.7-15.0 MCHC 34.2 g/dL (Normal) Range: 32.0-36.0 MCH 31.2 pg (Normal) Range: 27.0-34.0 MCV 91 fL (Normal) Range: 80-98 Hematocrit 44.7 % (Normal) Range: 36.0-50.0 Hemoglobin 15.3 g/dL (Normal) Range: 12.5-17.0 RBC 4.91 {x10E6/uL} (Normal) Range: 4.10-5.60 WBC 8.0 {x10E3/uL} (Normal) Range: 4.0-10.5 :14 HgA1C , Office (14084) HgA1C , Office 6.4 % (Normal) Range: 4.6 - 7.1 :14 Blood Glucose , Office (40988) Blood Glucose , Office 142 (Normal) 6-Fdk-109364:17 MYOCARD PERF STRESS/REST MULT Radiology Report See Note (Normal) Comments: REGADENOSON NUCLEAR STUDY HISTORYThis is a 65-year-old male who presents with an abnormal EKG and isundergoing a preoperative stress evaluation. TECHNIQUEThe patient was injected with 14.1 mCi of Tc99m Cardiolite and restingSPECT images were acquired in the horizontal long, vertical long andshort axes views. The patient subsequently underwent regadenosoninfusion and was injected with 0.4 mg over 10 s econds. 20 seconds postregadenoson infusion, the patient was injected with 42.3 mCi of Pm70lEgjyaatugz and post-regadenoson SPECT images were acquired in thehorizontal long, vertical long and short axe s views. INTERPRETATIONResting images demonstrate a basal inferior perfusion defect whichnormalizes with Regadenoson with brightening at end systole and normalwall motion consistent with diaphragmatic attenuation. The entire leftventricle appears to be well perfused with Regadenoson. There are nofixed defects to suggest infarct. There were no reversible defectsdeveloping with regadenoson to sug gest inducible ischemia. Calculatedejection fraction by gated SPECT imaging was 64% with normal wall motionand brightening in all segments. CONCLUSION1) Small basal inferior perfusion defect at rest normalizing withRegadenoson consistent with diaphragmatic attenuation.2) No fixed defects to suggest infarct.3) No reversible defects developing with Regadenoson to suggestinducible ischemia. Dic tated on 11/23/10 1153 by Carroll CAMP,AlexandrosTranscribed on 11/23/10 1217 by LAURENCE ODENSign by Carroll CAMP,Kendall on 11/25/10 2312 Sign by: Kendall Hodges MD :52 HgA1C , Office (28111) HgA1C , Office 5.8 % (Normal) Range: 4.6 - 7.1 :52 Blood Glucose , Office (68126) Blood Glucose , Office 113 (Normal) :04 Antinuclear Comments: See [phone]- for additional results.PERFORMED BY: [facility] Orhzsh3990 [facility] [id number] Antibodies Direct KALEN Direct Negative (Normal) : CBC With Comments: See [phone]- for additional results.PERFORMED BY: BEATA [facility] Qljzyo5448 Wilc Differential/Platelet ox [facility] [id number] Information: 08/13@530AM 08/14@530AM Baso (Absolute) 0.0 {x10E3/uL} Range: 0.0-0.2 (Normal) Immature Grans (Abs) 0.0 {x10E3/uL} Range: 0.0-0.1 (Normal) Immature Granulocytes 0 % (Normal) Range: 0-1 Eos (Absolute) 0.1 {x10E3/uL} Range: 0.0-0.4 (Normal) Lymphs (Absolute) 1.3 {x10E3/uL} Range: 0.7-4.5 (Normal) Monocytes(Absolute) 0.7 {x10E3/uL} Range: 0.1-1.0 (Normal) Basos 1 % (Normal) Range: 0-3 Eos 2 % (Normal) Range: 0-7 Lymphs 18 % (Normal) Range: 14-46 Monocytes 9 % (Normal) Range: 4-13 Neutrophils (Absolute) 5.5 {x10E3/uL} Range: 1.8-7.8 (Normal) Neutrophils 70 % (Normal) Range: 40-74 Platelets 301 {x10E3/uL} Range: 140-415 (Normal) MCH 32.1 pg (Normal) Range: 27.0-34.0 MCHC 36.2 g/dL (Abnormal) Range: 32.0-36.0 RDW 12.8 % (Normal) Range: 11.7-15.0 Hematocrit 41.2 % (Normal) Range: 36.0-50.0 Hemoglobin 14.9 g/dL (Normal) Range: 12.5-17.0 MCV 89 fL (Normal) Range: 80-98 RBC 4.64 {x10E6/uL} Range: 4.10-5.60 (Normal) WBC 7.7 {x10E3/uL} Range: 4.0-10.5 (Normal) 14-Aug-2010 Corrected Report CO6 (Normal) Comments: SEE END OF THIS REPORT FOR CORRECTED REPORT COMMENTS Corrected report called to Lina Burrows 01/21/11PERFORMED BY: VocabGreystone Park Psychiatric HospitalBfroao6079 [facility] [id number] 10:04 Comment Comments: This is a corrected report. The previously reported result was:========Test Result Units=======Date Resulted=Creatinine, U 206.7 mg/dL 08/21/2010Creati nine, Ur 24hr 6201.0 HI mg/24 hr 08/21/2010Creatinine Clearance 356 HI mL/min 08/21/2010Protein,Total,Urine 24.6 HI mg/dL 08/21/2010Prot,24hr meche culated 738.0 HI mg/24 hr 08/21/2010Original results obtained from random specimen run asspecimen number [id number] 00-Bds-484940:04 Creatinine Clearance Comments: SEE END OF THIS REPORT FOR CORRECTED REPORT COMMENTS Corrected report called to Lina Burrows 01/21/11PERFORMED BY: Vocab Eqlpnu8129 [facility] [id number] Information: 08/13@530AM 08/14@530AM Creatinine Clearance 126 mL/min (Normal) Range: 97-137 Comments: The above range is based on 1.73 square meter average body surfacearea. Creatinine, Ur 24hr 2199.0 {mg/24_hr} (Abnormal) Range: 1000.0-2000.0 Creatinine, Urine 73.3 mg/dL (Normal) Range: 22.0-328.0 eGFR If Africn Am 71 mL/min/1.73 (Normal) Comments: Note: A persistent eGFR <60 mL/min/1.73 m2 (3 months or more) mayindicate chronic kidney disease. An eGFR >59 mL/min/1.73 m2 with anelevated urine protein also may indicate chronic kidney disease.Calculated using CKD-EPI formula. eGFR If NonAfricn Am 62 mL/min/1.73 (Normal) Creatinine, Serum 1.21 mg/dL (Normal) Range: 0.76-1.27 :04 Creatinine Clearance Comments: PERFORMED BY: BEATA Joseph6370 [address] [facility] [id number] Creatinine Clearance 356 mL/min (Abnormal) Range: 97-137 Comments: The above range is based on 1.73 square meter average body surfacearea. Creatinine, Ur 24hr 6201.0 {mg/24_hr} Range: 1000.0-2000.0 (Abnormal) Creatinine, Urine 206.7 mg/dL (Normal) Range: 22.0-328.0 eGFR If Africn Am 71 mL/min/1.73 Comments: Note: A persistent eGFR <60 mL/min/1.73 m2 (3 months or more) mayindicate chronic kidney disease. An eGFR >59 mL/min/1.73 m2 with anelevated urine protein also may indicate chronic kidney di sease.Calculated using CKD-EPI formula. (Normal) Creatinine, Serum 1.21 mg/dL (Normal) Range: 0.76-1.27 eGFR If NonAfricn Am 62 mL/min/1.73 (Normal) Magnesium, Serum 2.1 mg/dL (Normal) Comments: See [id number] for additional results.PERFORMED BY: BEATA Joseph6[address] [facility] [id number] 0:04 Range: 1.6-2.6 :04 Microalb/Creat Comments: See [phone] for additional results.PERFORMED BY: [facility] Gjcvwl1983 [facility] [id number] Ratio, Randm Ur Microalb/Creat Ratio 33.4 {mg/g_creat} Range: 0.0-30.0 (Abnormal) Microalbumin, Urine 69.0 ug/mL (Abnormal) Range: 0.0-17.0 Creatinine, Urine 206.7 mg/dL (Normal) Range: 22.0-328.0 14-Aug-2010 Phosphorus, Serum 3.3 mg/dL (Normal) Comments: See [phone] for additional results.PERFORMED BY: [facility]INK[facility] Jhumqf2323 [facility] [id number] 10:04 Range: 2.5-4.5 96-Umn-814974:04 Protein Comments: See [phone] for additional results.PERFORMED BY: [facility]ELINKCore[facility]eland Hospital6370 [facility] [id number] Electro, Random Urine Please note: SPRCS (Normal) Comments: Protein electrophoresis scan will follow via computer, mail, orcourier delivery. Albumin, U 55.0 % (Normal) Vhzsz-4-Oxiwdvpj, U 2.5 % (Normal) Mgnye-8-Iipqahqz, U 7.6 % (Normal) Beta Globulin, U 17.1 % (Normal) Gamma Globulin, U 17.9 % (Normal) M-Robson, % Not Observed % (Normal) Protein,Total,Urine 7.2 mg/dL (Normal) Range: 0.0-15.0 28-Mro-646949:04 Protein Comments: See [phone] for additional results.PERFORMED BY: [facility]INKFre[facility] Eqklgy5036 [facility] [id number] Electro.,S Please note: SPRCS (Normal) Comments: Protein electrophoresis scan will follow via computer, mail, orcourier delivery. A/G Ratio 1.2 (Normal) Range: 0.7-2.0 Globulin, Total 3.4 g/dL (Normal) Range: 2.0-4.5 M-Robson Not Observed g/dL (Normal) Xyyut-6-Mbcznamx 0.3 g/dL (Normal) Range: 0.1-0.4 Ctbqr-7-Alkukvxt 0.8 g/dL (Normal) Range: 0.4-1.2 Beta Globulin 1.1 g/dL (Normal) Range: 0.6-1.3 Gamma Globulin 1.2 g/dL (Normal) Range: 0.5-1.6 Albumin 4.1 g/dL (Normal) Range: 3.2-5.6 Protein, Total, Serum 7.5 g/dL (Normal) Range: 6.0-8.5 :04 Protein Total, Qn, 24-Hr Comments: PERFORMED BY: BEATA [employer] Dxwlhx[address] [place] [id number] Urine Prot,24hr calculated 738.0 {mg/24_hr} (Abnormal) Range: 30.0-150.0 :04 Protein Total, Qn, 24-Hr Comments: SEE END OF THIS REPORT FOR CORRECTED REPORT COMMENTS Corrected report called to Lina Burrows 01/21/11PERFORMED BY: BEATA [employer] [place] [id number] Urine Prot,24hr calculated 216.0 {mg/24_hr} Range: 30.0-150.0 (Abnormal) Protein,Total,Urine 7.2 mg/dL (Normal) Range: 0.0-15.0 PTH, Intact 13 pg/mL (Abnormal) Comments: See [id number] for additional results.PERFORMED BY: [facility] [employer]6370 [facility] [id number] 0:04 Range: 15-65 Vitamin D, 25-Hydroxy 28.3 ng/mL Comments: See [id number] for additional results.PERFORMED BY: [facility]ELINKCorewell [facility] Hospital6370 [facility] [id number] 0:04 (Abnormal) Range: 32.0-100.0 Comments: Recent studies consider the lower limit of 32.0 ng/mL to be athreshold for optimal health.Edu LO. J Nutr. 2004;135(2):317-22. 82-Wov-768195:09 TSH (67481) Comments: PATIENT WAS FASTINGPERFORMED BY: [facility] Hospitallin6370 [facility] [id number] TSH 3.990 {uIU/mL} (Normal) Range: 0.450-4.500 70-Fso-836077:09 METABOLIC PANEL, COMPREHENSIVE Comments: PATIENT WAS FASTINGPERFORMED BY: GENELINKCorewell Health Zeeland Hospital6370 [facility] [id number] (32334) ALT (SGPT) 29 [iU]/L (Normal) Range: 0-55 Alkaline Phosphatase, S 66 [iU]/L (Normal) Range: 25-160 AST (SGOT) 18 [iU]/L (Normal) Range: 0-40 A/G Ratio 1.5 (Normal) Range: 1.1-2.5 Bilirubin, Total 1.0 mg/dL (Normal) Range: 0.0-1.2 Globulin, Total 2.8 g/dL (Normal) Range: 1.5-4.5 Albumin, Serum 4.1 g/dL (Normal) Range: 3.6-4.8 Calcium, Serum 9.4 mg/dL (Normal) Range: 8.6-10.2 Carbon Dioxide, Total 19 mmol/L (Abnormal) Range: 20-32 Chloride, Serum 95 mmol/L (Abnormal) Range: 97-108 Protein, Total, Serum 6.9 g/dL (Normal) Range: 6.0-8.5 Potassium, Serum 4.6 mmol/L (Normal) Range: 3.5-5.2 Sodium, Serum 130 mmol/L (Abnormal) Range: 135-145 BUN/Creatinine Ratio 19 (Normal) Range: 10-22 eGFR If Africn Am 52 mL/min/1.73 (Abnormal) Comments: Note: A persistent eGFR <60 mL/min/1.73 m2 (3 months or more) mayindicate chronic kidney disease. An eGFR >59 mL/min/1.73 m2 with anelevated urine protein also may indicate chronic kidney disease.Calculated using CKD-EPI formula. eGFR If NonAfricn Am 45 mL/min/1.73 (Abnormal) BUN 30 mg/dL (Abnormal) Range: 8-27 Creatinine, Serum 1.56 mg/dL (Abnormal) Range: 0.76-1.27 Glucose, Serum 356 mg/dL (Abnormal) Range: 65-99 Comments: Client Requested Flag :09 LIPID PANEL (60043) Comments: PATIENT WAS FASTINGPERFORMED BY: [employer]70 [facility] [id number] LDL/HDL Ratio 2.4 {ratio_units} (Normal) Range: 0.0-3.6 LDL Cholesterol Calc 92 mg/dL (Normal) Range: 0-99 VLDL Cholesterol Meche 27 mg/dL (Normal) Range: 5-40 HDL Cholesterol 39 mg/dL (Abnormal) Comments: According to ATP-III Guidelines, HDL-C >59 mg/dL is considered anegative risk factor for CHD. Triglycerides 133 mg/dL (Normal) Range: 0-149 Cholesterol, Total 158 mg/dL (Normal) Range: 100-199 :09 CBC WITH MANUAL DIFF Comments: PATIENT WAS FASTINGPERFORMED BY: LXSNGreystone Park Psychiatric HospitalUwluxm7294 [facility] [id number] Information: [id number] (72282) Immature Grans (Abs) 0.0 {x10E3/uL} (Normal) Range: 0.0-0.1 Immature Granulocytes 0 % (Normal) Range: 0-1 Baso (Absolute) 0.0 {x10E3/uL} (Normal) Range: 0.0-0.2 Eos (Absolute) 0.1 {x10E3/uL} (Normal) Range: 0.0-0.4 Lymphs (Absolute) 1.6 {x10E3/uL} (Normal) Range: 0.7-4.5 Monocytes(Absolute) 1.3 {x10E3/uL} (Abnormal) Range: 0.1-1.0 Basos 0 % (Normal) Range: 0-3 Neutrophils (Absolute) 12.8 {x10E3/uL} (Abnormal) Range: 1.8-7.8 Eos 0 % (Normal) Range: 0-7 Monocytes 9 % (Normal) Range: 4-13 Lymphs 10 % (Abnormal) Range: 14-46 Neutrophils 81 % (Abnormal) Range: 40-74 Platelets 254 {x10E3/uL} (Normal) Range: 140-415 RDW 13.0 % (Normal) Range: 11.7-15.0 MCH 32.5 pg (Normal) Range: 27.0-34.0 MCHC 34.8 g/dL (Normal) Range: 32.0-36.0 Hematocrit 42.8 % (Normal) Range: 36.0-50.0 MCV 93 fL (Normal) Range: 80-98 Hemoglobin 14.9 g/dL (Normal) Range: 12.5-17.0 RBC 4.59 {x10E6/uL} (Normal) Range: 4.10-5.60 WBC 15.8 {x10E3/uL} (Abnormal) Range: 4.0-10.5 :22 HgA1C , Office (44670) HgA1C , Office 10.0 % (Abnormal) Range: 4.6 - 7.1 :22 Blood Glucose , Office (83587) Blood Glucose , Office 368 (Normal) :03 HgA1C , Office (56597) Comments: done km HgA1C , Office 6.2 % (Normal) Range: 4.6 - 7.1 :03 Blood Glucose , Office (43519) Comments: done km Blood Glucose , Office 106 (Normal) :40 HEPATIC FUNCTION PANEL Comments: PATIENT WAS FASTINGPERFORMED BY: LabJustin [place] [id number] [place] [id number] Information: [id number] (00641) Alkaline Phosphatase, S 57 [iU]/L (Normal) Range: 25-160 ALT (SGPT) 38 [iU]/L (Normal) Range: 0-55 AST (SGOT) 29 [iU]/L (Normal) Range: 0-40 Bilirubin, Direct 0.15 mg/dL (Normal) Range: 0.00-0.40 Albumin, Serum 4.5 g/dL (Normal) Range: 3.6-4.8 Bilirubin, Total 0.6 mg/dL (Normal) Range: 0.1-1.2 Protein, Total, Serum 7.3 g/dL (Normal) Range: 6.0-8.5 :40 LIPID PANEL (43714) Comments: do 3 months; PATIENT WAS FASTINGPERFORMED BY: [facility] Zharxq2189 [facility] [id number] LDL Cholesterol Calc 130 mg/dL (Abnormal) Range: 0-99 LDL/HDL Ratio 3.0 {ratio_units} (Normal) Range: 0.0-3.6 VLDL Cholesterol Meche 24 mg/dL (Normal) Range: 5-40 HDL Cholesterol 44 mg/dL (Normal) Comments: According to ATP-III Guidelines, HDL-C >59 mg/dL is considered anegative risk factor for CHD. Triglycerides 122 mg/dL (Normal) Range: 0-149 Cholesterol, Total 198 mg/dL (Normal) Range: 100-199 :11 Blood Glucose , Office (05884) Comments: done Blood Glucose , Office 119 (Normal) :11 HgA1C , Office (58787) Comments: done HgA1C , Office 5.5 % (Normal) Range: 4.6 - 7.1 72-Pjm-246154:15 Microscopic Examination Comments: PATIENT WAS FASTINGPERFORMED BY: [facility] Eqdfeimcnf4130 [facility] [id number] Bacteria None seen (Normal) Epithelial Cells (non renal) 0-10 {/hpf} (Normal) Range: 0 - 10 Mucus Threads Present (Normal) RBC 11-30 {/hpf} (Abnormal) Range: 0 - 3 WBC 0-5 {/hpf} (Normal) Range: 0 - 5 47-Kpy-777481:15 TESTOSTERONE FREE (03602) Comments: PATIENT WAS FASTINGPERFORMED BY: [id number] [id number] Free Testosterone(Direct) 9.4 pg/mL (Normal) Range: 6.6-18.1 2-Pxx-932677:04 Glucose, PP/2 Hour (22343) Comments: PATIENT WAS FASTINGClinical Information: [id number] 75G DRAWN@10 15AM PERFORMED BY: LabCRMnextGrey[facility] Psych[facility] HospitalAxylll3437 [facility] [id number] Glucose, Two-Hour Postprandial 163 mg/dL (Abnormal) Range: 65-139 11-Gnu-848201:15 TSH (49631) Comments: PATIENT WAS FASTINGPERFORMED BY: [id number] [id number] TSH 1.680 {uIU/mL} (Normal) Range: 0.450-4.500 82-Uyr-217290:15 URINALYSIS W/O MICRO (55915) Comments: PATIENT WAS FASTINGPERFORMED BY: [id number] [id number] Appearance Clear (Normal) Bilirubin Negative (Normal) Glucose Negative (Normal) Ketones Negative (Normal) Microscopic Examination See below: (Normal) Nitrite, Urine Negative (Normal) Occult Blood Trace (Abnormal) pH 6.0 (Normal) Range: 5.0-7.5 Protein Trace (Normal) Specific [place] 1.024 (Normal) Range: 1.005-1.030 Urine-Color Yellow (Normal) Urobilinogen,Semi-Qn 0.2 mg/dL (Normal) Range: 0.0-1.9 WBC Esterase Negative (Normal) 38-Mpu-959799:15 MICROALBUMIN: CREATININE RATIO Comments: PATIENT WAS FASTINGPERFORMED BY: [id number] [id number] (98147) AND (02098) Creatinine, Urine 207.0 mg/dL (Normal) Range: 22.0-328.0 Microalb/Creat Ratio 29.6 {mg/g_creat} (Normal) Range: 0.0-30.0 Microalbumin, Urine 61.3 ug/mL (Abnormal) Range: 0.0-17.0 :15 METABOLIC PANEL, COMPREHENSIVE Comments: PATIENT WAS FASTINGPERFORMED BY: [facility] [id number] [id number] ([id number]) A/G Ratio 1.5 (Normal) Range: 1.1-2.5 Albumin, Serum 4.6 g/dL (Normal) Range: 3.6-4.8 Alkaline Phosphatase, S 77 [iU]/L (Normal) Range: 25-160 ALT (SGPT) 50 [iU]/L (Normal) Range: 0-55 AST (SGOT) 36 [iU]/L (Normal) Range: 0-40 Bilirubin, Total 0.8 mg/dL (Normal) Range: 0.1-1.2 BUN 19 mg/dL (Normal) Range: 5-26 BUN/Creatinine Ratio 19 (Normal) Range: 8-27 Calcium, Serum 10.1 mg/dL (Normal) Range: 8.5-10.6 Carbon Dioxide, Total 21 mmol/L (Normal) Range: 20-32 Chloride, Serum 104 mmol/L (Normal) Range: 97-108 Creatinine, Serum 1.02 mg/dL (Normal) Range: 0.76-1.27 eGFR >59 mL/min/1.73 (Normal) eGFR AfricanAmerican >59 mL/min/1.73 Comments: Note: Persistent reduction for 3 months or more in an eGFR<60 mL/min/1.73 m2 defines CKD. Patients with eGFR values>/=60 mL/min/1.73 m2 may also have CKD if evidence of persistentproteinuria is (Normal) present. Additional information may be found [email or web address]. Globulin, Total 3.1 g/dL (Normal) Range: 1.5-4.5 Glucose, Serum 103 mg/dL (Abnormal) Range: 65-99 Potassium, Serum 4.7 mmol/L (Normal) Range: 3.5-5.2 Protein, Total, Serum 7.7 g/dL (Normal) Range: 6.0-8.5 Sodium, Serum 140 mmol/L (Normal) Range: 135-145 [id number]:15 LIPID PANEL ([id number]) Comments: PATIENT WAS FASTINGPERFORMED BY: [facility] [id number] Cholesterol, Total 258 mg/dL (Abnormal) Range: 100-199 HDL Cholesterol 42 mg/dL (Normal) Comments: According to ATP-III Guidelines, HDL-C >59 mg/dL is considered anegative risk factor for CHD. LDL Cholesterol Calc 189 mg/dL (Abnormal) Range: 0-99 LDL/HDL Ratio 4.5 {ratio_units} (Abnormal) Range: 0.0-3.6 Triglycerides 136 mg/dL (Normal) Range: 0-149 VLDL Cholesterol M[place]he 27 mg/dL (Normal) Range: 5-40 :15 CBC WITH MANUAL DIFF ([id number]) Comments: PATIENT WAS FASTINGClinical Information: [id number] PERFORMED BY: [employer] [facility] [address] [id number] Baso (Absolute) 0.1 {x10E3/uL} (Normal) Range: 0.0-0.2 Basos 1 % (Normal) Range: 0-3 Eos 1 % (Normal) Range: 0-7 Eos (Absolute) 0.1 {x10E3/uL} (Normal) Range: 0.0-0.4 Hematocrit 45.4 % (Normal) Range: 36.0-50.0 Hemoglobin 15.9 g/dL (Normal) Range: 12.5-17.0 Lymphs 28 % (Normal) Range: 14-46 Lymphs (Absolute) 1.5 {x10E3/uL} (Normal) Range: 0.7-4.5 MCH 32.7 pg (Normal) Range: 27.0-34.0 MCHC 35.1 g/dL (Normal) Range: 32.0-36.0 MCV 93 fL (Normal) Range: 80-98 Monocytes 9 % (Normal) Range: 4-13 Monocytes(Absolute) 0.5 {x10E3/uL} (Normal) Range: 0.1-1.0 Neutrophils 61 % (Normal) Range: 40-74 Neutrophils (Absolute) 3.2 {x10E3/uL} (Normal) Range: 1.8-7.8 Platelets 266 {x10E3/uL} (Normal) Range: 140-415 RBC 4.88 {x10E6/uL} (Normal) Range: 4.10-5.60 RDW 13.0 % (Normal) Range: 11.7-15.0 WBC 5.3 {x10E3/uL} (Normal) Range: 4.0-10.5 [id number]:40 ABDOMEN WITHOUT CONTRAST Radiology Report See Note (Normal) Comments: Exam Number: [id number] CT ABDOMEN AND PELVIS CLINICAL STATEMENTNephrolithiasis, history of hematuria and recent stone passage. COMPARISON STUDIESNone. TECHNIQUERoutine noncontrast enhanced CT of the abd omen and pelvis wasperformed per renal stone protocol. FINDINGSThere are punctate nonobstructing intrarenal calculi shown. There ismild nonspecific perinephric induration. There is no hydronephrosis.T he ureters are normal in course and caliber. No ureteral calculi. There are small low-attenuation lesions shown in both kidneysincluding cortical and peripelvic locations most compatible with smallcyst s. These cannot be further evaluated based on their size. Alongthe inner margin of the right ureterovesical junction is a 0-nmqcuqiyzheo-cbnbwj calculi within the bladder. This is likely recentlypass ed. Bladder wall is mildly thickened. There is moderate enlargement of the prostate gland measuring 6 cm indiameter. There is enlargement of the seminal vesicles. Multiplepelvic lymph nodes are prese nt which are not pathologically enlargedbased on size but are more numerous than expected. Evaluation of the solid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 Diabetes mellitus out of control Obesity, morbid : Diet, Exercise, and Wt loss Indication: Obesity, morbid Hypertension with renal disease : HTN/CAD Red Flags Indication: 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, controlled, with renal complications : Continue Current Prescription(s) Indication: Type 2 diabetes mellitus, controlled, with renal complications Type 2 diabetes mellitus, controlled, with renal complications : *Diabetes Education Indication: Type 2 diabetes mellitus, controlled, with renal complications Type 2 diabetes mellitus, controlled, with renal complications : Diabetes Overview (Living with Diabetes): blood sugar Indication: Type 2 diabetes mellitus, controlled, with renal complications Type 2 diabetes mellitus, controlled, with renal complications : Follow up in 2 weeks: rev sugar diaries Indication: Type 2 diabetes mellitus, controlled, with renal complications Hypertension with renal disease : Diet, Exercise, and Wt loss Indication: 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 : HTN/CAD Red Flags Indication: Hypertension with renal disease Hypercholesteremia : *Cholesterol - Nonprescription Treatment Indication: Hypercholesteremia Hypercholesteremia : Cholesterol mgmt Indication: Hypercholesteremia Type 2 diabetes mellitus, controlled, with renal complications : Follow up in 3 months Indication: Type 2 diabetes mellitus, controlled, with renal complications Type 2 diabetes mellitus, controlled, with renal complications : Diabetes Overview (Living with Diabetes): type 2 diabetes Indication: Type 2 diabetes mellitus, controlled, with renal complications Diabetes mellitus out of control : Follow up in 3 months Indication: Diabetes mellitus out of control Chronic kidney disease, stage III (moderate) : Continue Current Prescription(s) Indication: Chronic kidney disease, stage III (moderate) Hypercholesteremia : *Cholesterol - Nonprescription Treatment Indication: Hypercholesteremia Hypercholesteremia : Cholesterol mgmt Indication: Hypercholesteremia Diabetes mellitus out of control : *Diabetes Education Indication: Diabetes mellitus out of control Hypertension with renal disease : HTN/CAD Red Flags Indication: 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 : Diet, Exercise, and Wt loss Indication: 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 : HTN/CAD Red Flags Indication: 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 : HTN/CAD Red Flags Indication: 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 : Diet, Exercise, and Wt loss Indication: Hypertension with renal disease Diabetes mellitus out of control : Follow up in 3 months Indication: Diabetes mellitus out of control Hypercholesteremia : *Cholesterol - Medication Side Effects Indication: Hypercholesteremia Hypercholesteremia : *Cholesterol - Nonprescription Treatment Indication: Hypercholesteremia Hypercholesteremia : Cholesterol mgmt Indication: Hypercholesteremia Chronic kidney disease, stage III (moderate) : Reviewed [facility] Letter Indication: Chronic kidney disease, stage III (moderate) Obesity, morbid : Diet, Exercise, and Wt loss Indication: Obesity, morbid Hypercholesteremia : *Cholesterol - Nonprescription Treatment Indication: Hypercholesteremia Hypercholesteremia : Cholesterol mgmt Indication: Hypercholesteremia Hypertension with renal disease : Diet, Exercise, and Wt loss Indication: 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 : HTN/CAD Red Flags Indication: 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, controlled, with renal complications : Diet, Exercise, and Wt loss Indication: Type 2 diabetes mellitus, controlled, with renal complications Type 2 diabetes mellitus, controlled, with renal complications : *Diabetes Education Indication: Type 2 diabetes mellitus, controlled, with renal complications Diabetes mellitus out of control : *Diabetes Education Indication: Diabetes mellitus out of control Diabetes mellitus out of control : Diet, Exercise, and Wt loss Indication: Diabetes mellitus out of control Diabetes mellitus out of control : Continue Current Prescription(s) Indication: Diabetes mellitus out of control Benign essential hypertension : Continue Current Prescription(s) Indication: Benign essential hypertension Diabetes mellitus out of control : FOLLOW UP IN 2 WEEKS Indication: Diabetes mellitus out of control Hypercholesteremia : CHOLESTEROL MGMT. Indication: Hypercholesteremia Chronic kidney disease, stage III (moderate) : *Avoid NSAIDS Indication: Chronic kidney disease, stage III (moderate) Hypercholesteremia : CHOLESTEROL MGMT. Indication: Hypercholesteremia Hypercholesteremia : *Cholesterol - Nonprescription Treatment Indication: Hypercholesteremia Hypercholesteremia : *Cholesterol - Medication Side Effects Indication: Hypercholesteremia Diabetes mellitus out of control : FOLLOW UP IN 3 MONTHS Indication: Diabetes mellitus out of control Obesity, morbid : Diet, Exercise, and Wt loss Indication: Obesity, morbid Abnormal glucose tolerance test : FOLLOW UP IN 4 MONTHS Indication: Abnormal glucose tolerance test Benign essential hypertension : BP MONITORING - SELF Indication: Benign essential hypertension Abnormal glucose tolerance test : Diet, Exercise, and Wt loss Indication: Abnormal glucose tolerance test Abnormal glucose tolerance test : *Diabetes Education Indication: Abnormal glucose tolerance test Hypercholesteremia : CHOLESTEROL MGMT. Indication: Hypercholesteremia Hypercholesteremia : *Cholesterol - Nonprescription Treatment Indication: Hypercholesteremia Hypercholesteremia : *Cholesterol - Medication Side Effects Indication: Hypercholesteremia Benign essential hypertension : Diet, Exercise, and Wt loss Indication: Benign essential hypertension Benign essential hypertension : HTN/CAD Red Flags Indication: Benign essential hypertension Benign essential hypertension : BP MONITORING - SELF Indication: Benign essential hypertension Abnormal glucose tolerance test : Reviewed Lab Indication: Abnormal glucose tolerance test Abnormal glucose tolerance test : FOLLOW UP IN 4 MONTHS Indication: Abnormal glucose tolerance test Abnormal glucose tolerance test : Diet, Exercise, and Wt loss Indication: Abnormal glucose tolerance test Abnormal glucose tolerance test : *Diabetes Education Indication: Abnormal glucose tolerance test Hypercholesteremia : CHOLESTEROL MGMT. Indication: Hypercholesteremia Hypercholesteremia : Cholesterol - Medication Side Effects Indication: Hypercholesteremia Hypercholesteremia : Cholesterol - Nonprescription Treatment Indication: Hypercholesteremia Benign essential hypertension : HTN/CAD Red Flags Indication: Benign essential hypertension Benign essential hypertension : FOLLOW UP IN 1 MONTH Indication: Benign essential hypertension Benign essential hypertension : BP MONITORING - SELF Indication: Benign essential hypertension Hypercholesteremia : Cholesterol - Medication Side Effects Indication: Hypercholesteremia Hypercholesteremia : Cholesterol - Nonprescription Treatment Indication: Hypercholesteremia Hypercholesteremia : CHOLESTEROL MGMT. Indication: Hypercholesteremia Non morbid obesity, unspecified obesity type : Diet, Exercise, and Wt loss Indication: Non morbid obesity, unspecified obesity type Benign essential hypertension : Diet, Exercise, and Wt loss Indication: Benign essential hypertension Benign essential hypertension : HTN/CAD Red Flags Indication: Benign essential hypertension BP MONITORING - SELF BP MONITORING - SELF Diet, Exercise, and Wt loss BP MONITORING - SELF Planned Observations CALCIFIDIOL (80641) VIT D 25Indication: Vitamin D deficiency On: :47 Request TSH ([id number])Indication: Diabetes mellitus out of control On: :47 Request METABOLIC PANEL, COMPREHENSIVE ([id number])Indication: Diabetes mellitus out of control On: :47 Request LIPOPROTEIN, BLD, BY NMR ([id number])Indication: Diabetes mellitus out of control On: 47 Request CBC W/AUTO DIFF WBC (78038)Indication: Diabetes mellitus out of control On: :47 Request MICROALBUMIN: CREATININE RATIO ([id number]) AND (31045)Indication: Hypertension with renal disease On: :11 Request LIPID PANEL ([id number])Indication: Hypercholesteremia On: :11 Request Blood Glucose , Office (24001)Indication: Hypoglycemia On: 64-Sxd-[id number]:34 Request HEPATIC FUNCTION PANEL (27829)Indication: Hypercholesteremia On: :11 Request LIPOPROTEIN, BLD, BY NMR ([id number])Indication: Hypercholesteremia On: 0-Pig-201131:11 Request LIPID PANEL ([id number])Indication: Hypercholesteremia On: :11 Request LIPID PANEL (05473)Indication: Hypercholesteremia On: :31 Request CALCIFIDIOL (44977) VIT D 25Indication: Vitamin D deficiency On: :32 Request TSH (12038)Indication: Diabetes mellitus out of control On: : Request URINALYSIS, W/ MICRO (32547)Indication: Hypertension with renal disease On: : Request MICROALBUMIN: CREATININE RATIO (04410) AND (13694)Indication: Hypertension with renal disease On: : Request METABOLIC PANEL, COMPREHENSIVE (32901)Indication: Hypertension with renal disease On: : Request LIPID PANEL ([id number])Indication: Hypertension with renal disease On: : Request CBC W/AUTO DIFF WBC ([id number])Indication: Hypertension with renal disease On: : Request CALCIFIDIOL (18325) VIT D 25Indication: Vitamin D deficiency On: :42 Request TSH (11461)Indication: Diabetes type II, uncontrolled, renal comp On: :41 Request URINALYSIS, W/ MICRO (22274)Indication: Diabetes type II, uncontrolled, renal comp On: :41 Request MICROALBUMIN: CREATININE RATIO (88399) AND ([id number])Indication: Diabetes type II, uncontrolled, renal comp On: :41 Request METABOLIC PANEL, COMPREHENSIVE (29614)Indication: Diabetes type II, uncontrolled, renal comp On: :41 Request LIPID PANEL (23194)Indication: Hypercholesteremia On: :41 Request CBC W/AUTO DIFF WBC ([id number])Indication: Diabetes type II, uncontrolled, renal comp On: [id number]-Zbm-[id number]:41 Request FECAL OCCULT- Tubes sent home (35901)Indication: Encounter for screening for malignant neoplasm of colon (Renamed from Special screening for malignant neoplasms, colon) On: :52 Request Metabolic Panel, Basic (34727)Indication: Diabetes mellitus out of control On: :13 Request MICROALBUMIN: CREATININE RATIO ([id number]) AND (52906)Indication: Hypertension with renal disease On: :08 Request URINALYSIS, W/ MICRO (21267)Indication: Diabetes mellitus out of control On: :45 Request MICROALBUMIN: CREATININE RATIO (21717) AND (81630)Indication: Diabetes mellitus out of control On: :45 Request FECAL OCCULT- Tubes sent home ([id number])Indication: Encounter for screening for malignant neoplasm of colon (Renamed from Special screening for malignant neoplasms, colon) On: :49 Request CALCIFIDIOL (03507) VIT D 25Indication: Vitamin D deficiency On: :43 Request TSH (76594)Indication: Diabetes mellitus out of control On: :43 Request URINALYSIS, W/ MICRO (42901)Indication: Hypertension with renal disease On: :43 Request MICROALBUMIN: CREATININE RATIO ([id number]) AND ([id number])Indication: Hypertension with renal disease On: :43 Request METABOLIC PANEL, COMPREHENSIVE ([id number])Indication: Hypertension with renal disease On: :43 Request CBC W/AUTO DIFF WBC (73573)Indication: Hypertension with renal disease On: :43 Request LIPID PANEL ([id number])Indication: Hypercholesteremia On: :43 Request PSA (PROSTATE SPECIFIC ANTIGEN) (58071)Indication: Screening PSA (prostate specific antigen) On: 82-Qrx-03891:38 Request CALCIFIDIOL (44360) VIT D 25Indication: Vitamin D deficiency On: :29 Request TSH ([id number])Indication: Diabetes mellitus out of control On: :29 Request URINALYSIS, W/ MICRO (89148)Indication: Hypertension with renal disease On: : Request CBC W/AUTO DIFF WBC (04381)Indication: Hypertension with renal disease On: :29 Request MICROALBUMIN: CREATININE RATIO ([id number]) AND (43616)Indication: Diabetes mellitus out of control On: :28 Request METABOLIC PANEL, COMPREHENSIVE (47220)Indication: Diabetes mellitus out of control On: Request LIPID PANEL (32546)Indication: Hypercholesteremia On: Request Hemoglobin Glyclated (HGB A1C) (23597)Indication: Diabetes mellitus out of control On: Request URINALYSIS, W/ MICRO ([id number])Indication: Diabetes mellitus out of control On: : Request MICROALBUMIN: CREATININE RATIO (29009) AND (77387)Indication: Diabetes mellitus out of control On: : Request CBC WITH MANUAL DIFF (42201)Indication: Leukocytosis, unspecified type On: : Request PARATHORMONE (50602)Indication: Chronic kidney disease, stage III (moderate) On: Request CALCIFEDIOL (36628)Indication: Chronic kidney disease, stage III (moderate) On: Request PHOSPHORUS (27479)Indication: Chronic kidney disease, stage III (moderate) On: Request MAGNESIUM (59688)Indication: Chronic kidney disease, stage III (moderate) On: : Request KALEN (ANTINUCLEAR ANTIBODY) (77308)Indication: Chronic kidney disease, stage III (moderate) On: Request Serum Protein Electrophoresis (SPEP) (63597)Indication: Chronic kidney disease, stage III (moderate) On: : Request Urine Protein Electrophoresis (UPEP) (71603)Indication: Chronic kidney disease, stage III (moderate) On: : Request CREATININE CLEARANCE (26283)Indication: Chronic kidney disease, stage III (moderate) On: : Request MICROALBUMIN 24 HOUR OR RANDOM (72131)Indication: Chronic kidney disease, stage III (moderate) On: : Request URINALYSIS, W/ MICRO ([id number])Indication: Benign essential hypertension On: :50 Request MICROALBUMIN: CREATININE RATIO ([id number]) AND (91676)Indication: Benign essential hypertension On: :50 Request Planned Procedures DRAIN/INJECT, JOINT/BURSA On: 30-Jan-2018 Intent (62568)By: Kelly Vargas DO Comments: left elbow Kelly Vargas DO ELECTROCARDIOGRAM, COMPLETE (ECG) On: 09-Jan-2018 Intent (90509)By: Kelly Vargas DO Comments: nsr no acute chg Kelly Vargas DO Flu Vaccine (Quadrivalent) 89485Ud: On: 09-Jan-2018 Intent Kelly Vargas DO, DO, Comments: Lot #[id number]/30/19Site-L dltd, IMDose prefilled syringegiven by: Lilian Pan.VIS reviewed and ABN signed Kelly Kenalog Injection, 10 mgm On: 07-Oct-2017 Intent (J3301)By: Kelly Vargas DO Comments: kenalog [id number], 11/2018marcaine [id number], 09/2018 Kelly Vargas DO DRAIN/INJECT SMALL JOINT OR BURSA On: 07-Oct-2017 Intent (74265)By: Kelly Vargas DO Comments: drained 14cc traumatic blood discharhe only -- injected kenolog and wrapped tightly with coban-lido epi 83-060-ev and exp 05/26/18 Kelly Vargas DO Kenalog Injection, 10 mgm On: 15-Apr-2017 Intent (J3301)By: Kelly Vargas DO Comments: Lot:[id number]/2018Dose:2ccRoute:imSite:r shoulderGiven By:kfVIS signed Kelly Vargas DO [id number] BEHAVIORAL COUNSELING On: 02-Mar-2017 Intent FOR OBESITY, 15 MINUTES (G0447)By: Kelly Vargas DO, DO, Kathleen ELECTROCARDIOGRAM, COMPLETE (ECG) On: 18-Nov-2016 Intent (06498)By: Kelly Vargas DO Comments: nsr no acute chg Kelly Vargas DO X-RAY OF SHOULDER, FOUR VIEWS On: 29-Apr-2016 Intent (15905)By: Kelly Vargas DO, DO, Kathleen Flu Vaccine (Quadrivalent) 99645Hc: On: 26-Feb-2016 Intent Kelly Vargas DO, DO, Comments: FLUlot: [id number]:09/08site:Lt deltoidroute:IMdose:.CARA Wyman [id number] BEHAVIORAL COUNSELING On: 26-Feb-2016 Intent FOR OBESITY, 15 MINUTES (G0447)By: Kelly Vargas DO, DO, Kathleen CT - Sinuses Complete (Without On: 04-Jul-2015 Intent Contrast)By: Kelly Vargas DO, DO, Kathleen [id number] BEHAVIORAL COUNSELING On: 31-Jan-2015 Intent FOR OBESITY, 15 MINUTES (G0447)By: Kelly Vargas DO, DO, Kathleen Flu Vaccine (Quadrivalent) 14048Kc: On: 26-Dec-2014 Intent Kelly Vargas DO, DO, Kathleen ADMINISTRATION OF INFLUENZA VIRUS On: 26-Dec-2014 Intent VACCINE (G0008)By: Sam CAGE, Comments: Lot #Lot #[id number]-L dltd, IMDose prefilled syringegiven by:MARLENY NagyNVIS and ABN signed Kelly Oliveira DO [id number] BEHAVIORAL COUNSELING On: 21-Feb-2014 Intent FOR OBESITY, 15 MINUTES (G0447)By: Kelly Vargas DO, DO, Kathleen Prevnar 13 (34724)By: Sam CAGE, On: 21-Feb-2014 Intent Kelly Oliveira DO Comments: [id number] arm, IMAS ADMINISTRATION OF INFLUENZA VIRUS On: 21-Feb-2014 Intent VACCINE (G0008)By: Sam CAGE, Comments: [id number] syringeL Dltd, IMAS, LPNABN and VIS signed Kelly Oliveira DO FLU VAC, SPLIT, >3 YEARS, INTRAMUSC On: 21-Feb-2014 Intent (45574)By: Kelly Vargas DO, DO, Kathleen Eprescribed prescriptions On: 16-Aug-2013 Intent (G8553)By: Kelly Vargas DO, DO, Kathleen Eprescribed prescriptions On: 17-May-2013 Intent (G8553)By: Kelly Vargas DO, DO, Kathleen EKG (06750)By: Kelly Vargas DO On: 17-May-2013 Intent Kelly Vargas DO Comments: nsr no acute chg - ADMINISTRATION OF INFLUENZA VIRUS On: 12-Feb-2013 Intent VACCINE (G0008)By: Sam CAGE, Comments: Lot:[id number]:0.5mLSite: L Dltd, IMGiven by: SCHUYLER NelsonVIS signed Kelly Oliveira DO [id number] BEHAVIORAL COUNSELING On: 12-Feb-2013 Intent FOR OBESITY, 15 MINUTES (G0447)By: Kelly Vargas DO, DO, Kathleen FLU VAC, SPLIT, >3 YEARS, INTRAMUSC On: 12-Feb-2013 Intent (30344)By: Kelly Vargas DO, DO, Kathleen EMGBy: Kelly Vargas DO On: 12-Feb-2013 Intent Kelly CAGE Nerve ConductionBy: Sam CAGE, On: 12-Feb-2013 Intent Kelly Oliveira DO Eprescribed prescriptions On: 12-Feb-2013 Intent (G8553)By: Clarisse Smith LPN EMGBy: Kelly Vargas DO On: 31-Aug-2012 Intent Kelly CAGE Comments: lower extrem Left leg Nerve ConductionBy: Sam CAGE, On: 31-Aug-2012 Intent Kelly Oliveira DO Comments: lower extrem- left side EKG (14663)By: Kelly Vargas DO On: 02-Jun-2012 Intent Kelly Vargas DO Comments: nsr no acute chg PNEUM VAC ADLT/IMUMNOSPR, SBC/INTRM On: 13-Jan-2012 Intent (99330)By: Kelly Vargas DO Comments: 0.5 cc given im lt arm lot [id number] 06/07/13 Kelly Vargas DO ADMINISTRATION OF PNEUMOCOCCAL On: 13-Jan-2012 Intent VACCINE (G0009)By: Kelly Vargas DO, DO, Kathleen FLU VAC, SPLIT, >3 YEARS, INTRAMUSC On: 30-Dec-2011 Intent (21223)By: Kelly Vargas DO Comments: Lot #[id number]-L dltd, IMDose prefilled syringegiven by:SCHUYLER NagyVIS signed Kelly Vargas DO ADMINISTRATION OF INFLUENZA VIRUS On: 30-Dec-2011 Intent VACCINE (G0008)By: Kelly Vargas DO, DO, Kathleen Eprescribed prescriptions On: 30-Dec-2011 Intent (G8553)By: Kelly Vargas DO, DO, Kathleen Eprescribed prescriptions On: 30-Dec-2011 Intent (G8553)By: Clarisse Smith LPN Nuclear Stress Test/Stress On: 06-Nov-2010 Intent SPECT/AdenosineBy: Kelly Vargas DO, DO, Kathleen Eprescribed prescriptions On: 06-Nov-2010 Intent (G8553)By: Clarisse Smith LPN Eprescribed prescriptions On: 07-Sep-2010 Intent (G8553)By: Kelly Vargsa DO, DO, Kathleen EKG (52253)By: Kelly Vargas DO On: 03-Aug-2010 Intent Kelly Vargas DO Comments: nsr no acute chg-- nonspecif flattening TDAP VACCINE >7 IM (75792)By: On: 03-Aug-2010 Intent Kelly Vargas DO, DO, Comments: Lot #[id number]/24/13Site-left deltoidgiven by:YOLANDA Mendoza EKG (22257)By: Kelly Vargas DO On: 13-Feb-2009 Intent Kelly Vargas DO Comments: nsr no acute changes Toradol Injection, 30 mg On: 26-Jun-2007 Intent (J1885)By: Kelly Vargas DO Comments: Lot #[id number]-right [id number] by Kelly Rodgers LPN, DO CT - Abdomen & Pelvis Stone On: 26-Jun-2007 Intent ProtocolBy: Kelly Vargas DO, DO, Kathleen Planned Medications INJECTION, TRIAMCINOLONE ACETONIDE, NOT OTHERWISE SPECIFIED, 10 MG Ordered: 15-Apr-2017 Pending Kelly Vargas DO, DO, Kathleen INJECTION, TRIAMCINOLONE ACETONIDE, NOT OTHERWISE SPECIFIED, 10 MG Ordered: 07-Oct-2017 Pending Kelly Vargas DO, DO, Kathleen Instructions Name Dates Details Non-smoker : How to access health information online Indication: Non-smoker Non-smoker : How to access health information online - Detail Indication: Non-smoker Non-smoker : Patient Instructions Indication: Non-smoker NEED FOR PROPHYLACTIC VACCINATION AND INOCULATION AGAINST INFLUENZA (V04.81) (Renamed from Need for prophylactic vaccination and inoculation against influenza) : How to access health information online Indication: NEED FOR PROPHYLACTIC VACCINATION AND INOCULATION AGAINST INFLUENZA (V04.81) (Renamed from Need for prophylactic vaccination and inoculation against influenza) NEED FOR PROPHYLACTIC VACCINATION AND INOCULATION AGAINST INFLUENZA (V04.81) (Renamed from Need for prophylactic vaccination and inoculation against influenza) : How to access health information online - Detail Indication: NEED FOR PROPHYLACTIC VACCINATION AND INOCULATION AGAINST INFLUENZA (V04.81) (Renamed from Need for prophylactic vaccination and inoculation against influenza) NEED FOR PROPHYLACTIC VACCINATION AND INOCULATION AGAINST INFLUENZA (V04.81) (Renamed from Need for prophylactic vaccination and inoculation against influenza) : Patient Instructions Indication: NEED FOR PROPHYLACTIC VACCINATION AND INOCULATION AGAINST INFLUENZA (V04.81) (Renamed from Need for prophylactic vaccination and inoculation against influenza) BMI 30.0-30.9,adult : How to access health information online Indication: BMI 30.0-30.9,adult BMI 30.0-30.9,adult : How to access health information online - Detail Indication: BMI 30.0-30.9,adult BMI 30.0-30.9,adult : Patient Instructions Indication: BMI 30.0-30.9,adult Non-smoker : How to access health information online Indication: Non-smoker Non-smoker : How to access health information online - Detail Indication: Non-smoker Non-smoker : Patient Instructions Indication: Non-smoker Non-smoker : How to access health information online Indication: Non-smoker Non-smoker : How to access health information online - Detail Indication: Non-smoker Leg injury, right, subsequent encounter : Patient Instructions Indication: Leg injury, right, subsequent encounter Diabetes mellitus out of control : How to access health information online Indication: Diabetes mellitus out of control Diabetes mellitus out of control : How to access health information online - Detail Indication: Diabetes mellitus out of control Diabetes mellitus out of control : Patient Instructions Indication: Diabetes mellitus out of control Non-smoker : How to access health information online Indication: Non-smoker Non-smoker : How to access health information online - Detail Indication: Non-smoker Non-smoker : Patient Instructions Indication: Non-smoker Non-smoker : How to access health information online Indication: Non-smoker Non-smoker : How to access health information online - Detail Indication: Non-smoker Non-smoker : Patient Instructions Indication: Non-smoker Non-smoker : How to access health information online Indication: Non-smoker Non-smoker : How to access health information online - Detail Indication: Non-smoker Non-smoker : Patient Instructions Indication: Non-smoker Diabetes mellitus out of control : How to access health information online Indication: Diabetes mellitus out of control Diabetes mellitus out of control : How to access health information online - Detail Indication: Diabetes mellitus out of control Diabetes mellitus out of control : Patient Instructions Indication: Diabetes mellitus out of control Acute pain of right shoulder : How to access health information online Indication: Acute pain of right shoulder Acute pain of right shoulder : How to access health information online - Detail Indication: Acute pain of right shoulder Acute pain of right shoulder : Patient Instructions Indication: Acute pain of right shoulder Diabetes mellitus out of control : obesity counseling Indication: Diabetes mellitus out of control Body mass index 30.0-30.9, adult : How to access health information online Indication: Body mass index 30.0-30.9, adult Body mass index 30.0-30.9, adult : How to access health information online - Detail Indication: Body mass index 30.0-30.9, adult Body mass index 30.0-30.9, adult : Patient Instructions Indication: Body mass index 30.0-30.9, adult Diabetes mellitus out of control : How to access health information online Indication: Diabetes mellitus out of control Diabetes mellitus out of control : How to access health information online - Detail Indication: Diabetes mellitus out of control Diabetes mellitus out of control : Patient Instructions Indication: Diabetes mellitus out of control Pipe smoker motivated to quit : How to access health information online Indication: Pipe smoker motivated to quit Pipe smoker motivated to quit : How to access health information online - Detail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 8:45 Encounter Reason: [employer] visit - Exercises 5 (yard work and remodeling a room in the house and building a deck and help neighbor with their yard) times per week. The patient's dietary intake is no fast food, no fried patricio End: 25-Sep-2015 9:53 d, no regular soda and restricting calories (wathcing carbs and trying to eat better ).Encounter Diagnosis: Diabetes mellitus out of control, Hypertension with renal disease, Body mass index 33.0-33.9, adult (Renamed from Body mass index (BMI) of 33.0-33.9 in adult) [facility] Office Visit On: 11-Sep-2015 8:19 Encounter Reason: Follow up for chronic medical issues - The patient does not feel well, has decreased energy level and is sleeping poorly. Patient has been compliant with instructions. Current medication use: no side ef End: 11-Sep-2015 9:22 fects and compliant with dosing regimen. Patient sleeps 4 hours per night. Nutrition: inappropriate diet and no supplemental vitamins & iron. The medical issues the patient is following up for inclu de All identified problems below, blood sugar issues, depression, high blood pressure, high cholesterol and other. blood pressure range :, fasting blood sugars : and weight :.Encounter Diagnosis: Diabetes mellitus out of control, Hypercholesteremia, Vitamin D deficiency, Hypertension with renal disease, Edema extremities, Non morbid obesity, unspecified obesity type [facility] Office Visit On: 18-Aug-2015 8:39 Encounter Reason: Follow up for diabetes/glucose intolerance - The patient feels well with minor complaints, has decreased energy level (better per ) and is sleeping poorly. Patient has been compliant with instructio End: 18-Aug-2015 9:31 ns. Nutrition: balanced diet. fasting blood sugars :, postprandial sugars : and evening sugars :.Encounter Diagnosis: Diabetes mellitus out of control [facility] Office Visit On: 30-Jul-2015 9:01 Encounter Reason: Follow up for diabetes/glucose intolerance - The patient feels well with minor complaints, has decreased energy level and is sleeping poorly. Patient has been compliant with instructions. Nutrition: katie End: 30-Jul-2015 10:06 ppropriate diet. fasting blood sugars :.Encounter Diagnosis: Diabetes mellitus out of control [facility] Office Visit On: 04-Jul-2015 7:11 Encounter Reason: Follow up for chronic medical issues - The patient feels well with minor complaints, has decreased energy level and is sleeping poorly. Patient has been compliant with instructions. Current medication u End: 07-Jul-2015 16:50 se: no side effects and compliant with dosing regimen. Patient sleeps 4 hours per night. Nutrition: balanced diet and supplemental vitamins. The medical issues the patient is following up for include Al l identified problems below, blood sugar issues, depression, high blood pressure and high cholesterol. blood pressure range :, fasting blood sugars : and weight :.Encounter Diagnosis: Diabetes mellitus out of control, Hypercholesteremia, Vitamin D deficiency, Hypertension with renal disease, Chronic sinusitis, unspecified location [facility] Phone Encounter On: 10-Apr-2015 10:58 Encounter Diagnosis: Diabetes mellitus out of control End: 10-Apr-2015 10:59 [facility] Office Visit On: 03-Apr-2015 7:04 Encounter Reason: Follow up for chronic medical issues - The patient does not feel well, has decreased energy level and is sleeping poorly. Patient has been compliant with instructions. Current medication use: no side ef End: 03-Apr-2015 15:59 fects and compliant with dosing regimen. Patient sleeps 4 hours per night. Nutrition: balanced diet and supplemental vitamins. The medical issues the patient is following up for include All identified p roblems below, blood sugar issues, high blood pressure and high cholesterol. blood pressure range :, fasting blood sugars : and weight :.Encounter Diagnosis: Diabetes mellitus out of control, Hypertension with renal disease, Vitamin D deficiency, Hypercholesteremia, Acute bronchitis due to other specified organisms, Depression, acute [facility] Office Visit On: 21-Feb-2015 9:32 Encounter Reason: Follow up for diabetes/glucose intolerance - The patient does not feel well. Patient has been compliant with instructions. Nutrition: balanced diet., End: 21-Feb-2015 10:32 [ADDITIONAL REASON] Sinusitis - The last clinic visit was 5 day(s) ago. No changes in management were made at the last visit. Symptoms include nasal congestion, purulent rhinorrhea and cough, while sym ptoms do not include ear fullness, ear pain, ear pressure or headache. Onset was sudden. The patient describes this as moderate in severity and improving (fell like turning around but still miserable). Encounter Diagnosis: Diabetes mellitus out of control, SINUSITIS, ACUTE NOS (461.9) [facility] Office Visit On: 14-Feb-2015 7:18 Encounter Reason: Follow up for diabetes/glucose intolerance - The patient feels well with minor complaints, has decreased energy level and is sleeping poorly. Patient has been compliant with instructions. Nutrition: bal End: 14-Feb-2015 8:06 anced diet. fasting blood sugars : and postprandial sugars :.Encounter Diagnosis: Diabetes mellitus out of control [facility] Office Visit On: 07-Feb-2015 7:46 Encounter Reason: Follow up for diabetes/glucose intolerance - The patient feels well with minor complaints, has decreased energy level and is sleeping poorly. Patient has been compliant with instructions. Nutrition: bal End: 07-Feb-2015 8:59 anced diet. fasting blood sugars : and postprandial sugars :.Encounter Diagnosis: Diabetes mellitus out of control [facility] Refill Request On: 06-Feb-2015 15:16 Encounter Diagnosis: Diabetes typeII,controlled, renal comp (250.40) End: 06-Feb-2015 15:18 [facility] Office Visit On: 31-Jan-2015 7:03 Encounter Reason: Annual Medicare Exam - The patient had reviewed and updated the family history, medication/s, past medical history and social history. Yes the patient did have a mini mental status exam done today. The End: 31-Jan-2015 8:00 activities of daily living the patient needs help with are none. The patient has driven in past 6 months, fallen in the past 6 months, has a medalert necklace or bracelet and put area rugs through house , but the patient has not had fecal incontinence, had urinary incontinence, missed or ran out of medications to soon, gotten lost or put handrails in bathroom. The patient has completed the following pr eventative measures: PSA testing (3 mo) and colonoscopy (8 yrs - ??). The patient does not have durable power of consumer attorney or living will. The patient has noticed dissatisfaction with life, dropping acti vities and interests, feeling emptiness in life, getting bored, feeling something bad will happen, staying at home rather than doing something new or going out, feeling worthless, lack of energy and thi nking most people are better off than them. Other providers contributing to the patient's care are urologist and other: (jean mgt, has not seen an eye dr in last year).Encounter Diagnosis: Diabetes mellitus out of control, Physical exam WITH abnormal findings (Renamed from Encounter for general adult medical examination with abnormal findings), Encounter for screening for malignant neoplasm of colon (Renamed from Special screening for malignant neoplasms, colon), Body mass index 33.0-33.9, adult (Renamed from Body mass index (BMI) of 33.0-33.9 in adult) [facility] Office Visit On: 26-Dec-2014 6:59 Encounter Reason: Follow up for chronic medical issues - The patient feels well with minor complaints, has decreased energy level and is sleeping poorly. Patient has been compliant with instructions. Current medication u End: 26-Dec-2014 7:48 se: no side effects and compliant with dosing regimen. Patient sleeps 3 hours per night. Nutrition: balanced diet and supplemental vitamins. The medical issues the patient is following up for include Al l identified problems below, blood sugar issues, high blood pressure and high cholesterol. blood pressure range :, fasting blood sugars : and weight :.Encounter Diagnosis: Vitamin D deficiency, Hypertension with Renal Disease (403.90), Diabetes type II,uncontrolled, no comp (250.02), Hypercholesteremia (272.0), Need for prophylactic vaccination and inoculation against influenza (V04.81), Stress Reaction (308.4) [facility] Office Visit On: 13-Sep-2014 7:57 Encounter Reason: Follow up tests - Date: (09/05/14 labs)., [ADDITIONAL REASON] Follow up for chronic medical issues - The patient feels well with minor complai End: 13-Sep-2014 9:17 nts, has decreased energy level and is sleeping poorly. Patient has been compliant with instructions. Current medication use: no side effects and compliant with dosing regimen. Patient sleeps 4 hours pe r night. Nutrition: balanced diet and supplemental vitamins. The medical issues the patient is following up for include All identified problems below, blood sugar issues, high blood pressure and high ch olesterol. blood pressure range :, fasting blood sugars : and weight :. Encounter Diagnosis: Hypercholesteremia (272.0), Diabetes type II,uncontrolled, no comp (250.02), Hypertension with Renal Disease (403.90), Vitamin D deficiency [facility] Phone Encounter On: 05-Sep-2014 8:37 Encounter Diagnosis: Screening PSA (prostate specific antigen) End: 05-Sep-2014 8:38 [facility] Office Visit On: 20-Jun-2014 7:03 Encounter Reason: Follow up for chronic medical issues - The patient feels well with minor complaints, has decreased energy level and is sleeping poorly. Patient has been compliant with instructions. Current medication u End: 20-Jun-2014 12:09 se: no side effects and compliant with dosing regimen. Patient sleeps 4 hours per night. Nutrition: balanced diet and supplemental vitamins. The medical issues the patient is following up for include Al l identified problems below, blood sugar issues, high blood pressure and high cholesterol. blood pressure range :, fasting blood sugars : and weight :.Encounter Diagnosis: Vitamin D deficiency, Diabetes type II,uncontrolled, no comp (250.02), Hypertension with Renal Disease (403.90), Hypercholesteremia (272.0), Stress reaction [facility] Phone Encounter On: 21-May-2014 13:53 Encounter Diagnosis: Diabetes typeII,controlled, renal comp (250.40) End: 21-May-2014 13:55 [facility] Phone Encounter On: 12-Apr-2014 14:22 Encounter Diagnosis: Abnormal Glucose Tolerance Test (790.22) End: 12-Apr-2014 14:23 [facility] Office Visit On: 11-Apr-2014 12:27 Encounter Diagnosis: Diabetes type II,uncontrolled, no comp (250.02), Tremor, Vitamin D deficiency End: 11-Apr-2014 13:23 [facility] Phone Encounter On: 20-Mar-2014 17:45 Encounter Diagnosis: Diabetes type II,uncontrolled, no comp (250.02) End: 20-Mar-2014 17:47 [facility] Office Visit On: 20-Mar-2014 6:57 Encounter Reason: Follow up for chronic medical issues - The patient does not feel well, has decreased energy level and is sleeping poorly. Patient has been compliant with instructions. Current medication use: no side ef End: 20-Mar-2014 9:38 fects and compliant with dosing regimen. Patient sleeps 4 hours per night. Nutrition: balanced diet and supplemental vitamins. The medical issues the patient is following up for include All identified p chrisms below, blood sugar issues, high blood pressure, high cholesterol and other. blood pressure range :, fasting blood sugars : and weight :.Encounter Diagnosis: Diabetes type II,uncontrolled, no comp (250.02), Tremor, Hypercholesteremia (272.0), Hypertension with Renal Disease (403.90), Stress reaction, Vitamin D deficiency, Insomnia [facility] Office Visit On: 21-Feb-2014 7:11 Encounter Reason: Annual Medicare Exam - The patient had reviewed and updated the family history, medication/s, past medical history and social history. Yes the patient did have a mini mental status exam done today. The End: 22-Feb-2014 7:45 activities of daily living the patient needs help with are none. The patient has driven in past 6 months, fallen in the past 6 months and put handrails in bathroom, but the patient has not had fecal inc ontinence, had urinary incontinence, missed or ran out of medications to soon, gotten lost, has a medalert necklace or bracelet or put area rugs through house. The patient has completed the following pr eventative measures: PSA testing (3 mo) and colonoscopy (7 yrs). The patient does not have durable power of consumer attorney or living will. The patient has noticed nothing from the geriatic depression scale. O ther providers contributing to the patient's care are urologist and other:.Encounter Diagnosis: Backache, unspecified (724.5), Annual Medicare Physical (V70.0), Need for prophylactic vaccination and inoculation against influenza (V04.81), Need for vaccination against Streptococcus pneumoniae, Diabetes type II,uncontrolled, no comp (250.02), BMI 33.0-33.9, ADULT (V85.33) [facility] Phone Encounter On: 17-Aug-2013 12:47 [facility] End: 17-Aug-2013 12:48 Office Visit On: 16-Aug-2013 6:59 Encounter Reason: Follow up for chronic medical issues - The patient feels well with minor complaints, has decreased energy level and is sleeping poorly. Patient has been compliant with instructions. Current medication u End: 16-Aug-2013 10:08 se: compliant with dosing regimen. Patient sleeps 3 hours per night. Impact of disease: emotional impact-mild. Nutrition: balanced diet and supplemental vitamins. The medical issues the patient is follo wing up for include blood sugar issues, cardiac issues, high blood pressure, high cholesterol and other (obesity, impotence, leukocytosis ). fasting blood sugars : (around 105-115 in the am and I get di ves where it gets around 50 and I get shaky and sweaty.occurs appx 3 days a week - no specific timing - sometimes at night and other times during the dayCarries glucose tabs).Encounter Diagnosis: Hypercholesteremia (272.0), Hypertension with Renal Disease (403.90), Diabetes type II,uncontrolled, no comp (250.02), Muscle cramps, Limb Pain (729.5) [facility] Office Visit On: 17-May-2013 7:01 Encounter Reason: Follow up for chronic medical issues - The patient feels well with minor complaints, has decreased energy level and is sleeping poorly. Patient has been compliant with instructions. Current medication u End: 17-May-2013 16:01 se: compliant with dosing regimen. Patient sleeps 3 hours per night. Impact of disease: emotional impact-mild. Nutrition: balanced diet and supplemental vitamins. 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 Patient has been compliant with instructions. Current medication use: no side effects End: 12-Feb-2013 17:16 and compliant with dosing regimen. Patient sleeps 3 hours per night. Nutrition: balanced diet and no supplemental vitamins & iron. The medical issues the patient is following up for include All judi ntified problems below, blood sugar issues, high blood pressure and high cholesterol. fasting blood sugars :., [ADDITIONAL REASON] Annual Medicare Exam - The patient has fallen in the past 6 months and put handr ails in bathroom. The patient has noticed nothing from the geriatic depression scale (Mini Mental Status 30/30.). Encounter Diagnosis: Diabetes typeII,controlled, renal comp (250.40), Hypertension with Renal Disease (403.90), Hypercholesteremia (272.0), Stress Reaction (308.4), Numbness and tingling of left leg (782.0), Annual Medicare Physical (V70.0), Need for prophylactic vaccination and inoculation against influenza (V04.81), BMI 33.0-33.9, ADULT (V85.33) [facility] Office Visit On: 31-Aug-2012 8:05 Encounter Reason: Follow up for chronic medical issues - The patient does not feel well (bad pain in the left leg numb down the lower part and into the foot x3 weeks), has decreased energy level and is sleeping poorly. P End: 31-Aug-2012 11:27 atient has been compliant with instructions. Current medication use: no side effects and compliant with dosing regimen. Patient sleeps 4 hours per night. Nutrition: balanced diet and supplemental vitami ns. The medical issues the patient is following up for include All identified problems below, blood sugar issues, high blood pressure and high cholesterol. blood pressure range :, fasting blood sugars : and weight :.Encounter Diagnosis: Diabetes type II,uncontrolled, no comp (250.02), Hypercholesteremia (272.0), Hypertension with Renal Disease (403.90), Limb Pain (729.5), Stress Reaction (308.4) [facility] Office Visit On: 02-Jun-2012 8:59 Encounter Reason: Follow up for chronic medical issues - The patient feels well with minor complaints, has decreased energy level and is sleeping poorly. Patient has been compliant with instructions. Current medication u End: 02-Jun-2012 10:43 se: no side effects and compliant with dosing regimen. Patient sleeps 3 hours per night. Nutrition: balanced diet and supplemental vitamins. The medical issues the patient is following up for include Al l identified problems below, blood sugar issues, high blood pressure and high cholesterol. blood pressure range : and fasting blood sugars :.Encounter Diagnosis: Abnormal Glucose Tolerance Test (790.22), Hypertension with Renal Disease (403.90), Obesity, morbid (278.01), Hypercholesteremia (272.0), Diabetes type II,uncontrolled, no comp (250.02) [facility] Office Visit On: 13-Jan-2012 9:20 Encounter Reason: Follow up for diabetes/glucose intolerance - The patient feels well with minor complaints. Patient has been compliant with instructions. Nutrition: balanced diet. fasting blood sugars :, postprandial sugars : and evening sugars :. End: 13-Jan-2012 10:13 Encounter Diagnosis: Diabetes typeII,controlled, renal comp (250.40) [facility] Office Visit On: 30-Dec-2011 7:57 Encounter Reason: Follow up for chronic medical issues - The patient feels well with minor complaints, has decreased energy level and is sleeping poorly. Patient has been compliant with instructions. Current medication u End: 30-Dec-2011 10:10 se: no side effects and compliant with dosing regimen. Patient sleeps 4 hours per night. Nutrition: balanced diet and supplemental vitamins. The medical issues the patient is following up for include Al l identified problems below, blood sugar issues, high blood pressure and high cholesterol. fasting blood sugars :.Encounter Diagnosis: Hypercholesteremia (272.0), Hypertension with Renal Disease (403.90), Obesity, unspecified (278.00), Diabetes typeII,controlled, renal comp (250.40), Cough (786.2), Need for prophylactic vaccination and inoculation against influenza (V04.81) [facility] Office Visit On: 01-Sep-2011 8:01 Encounter Reason: Follow up tests - Date: (08/17/11 labs)., [ADDITIONAL REASON] Follow up for chronic medical issues - The patient feels well with minor complai End: 01-Sep-2011 9:01 nts, has decreased energy level and is sleeping poorly. Patient has been compliant with instructions. Current medication use: no side effects and compliant with dosing regimen. Patient sleeps 3 hours pe r night. Nutrition: balanced diet and supplemental vitamins. The medical issues the patient is following up for include All identified problems below, blood sugar issues, high blood pressure and high ch olesterol. blood pressure range : and fasting blood sugars :. Encounter Diagnosis: Hypertension with Renal Disease (403.90), Diabetes type II,uncontrolled, no comp (250.02), Benign essential hypertension (401.1), Chronic kidney disease, stage III (moderate) (585.3), Hypercholesteremia (272.0), Abnormal Glucose Tolerance Test (790.22), Nephrolithiasis (274.11), NEOP, NOS, BLADDER (239.4), Hematuria (599.7) [facility] Lab Order On: 17-Aug-2011 9:58 Encounter Diagnosis: Diabetes type II,uncontrolled, no comp (250.02) End: 17-Aug-2011 9:59 [facility] Office Visit On: 28-May-2011 8:12 Encounter Reason: Follow up for chronic medical issues - The patient does not feel well, has decreased energy level and is sleeping poorly. Patient has been compliant with instructions. Current medication use: no side ef End: 28-May-2011 9:08 fects and compliant with dosing regimen. Patient sleeps 3 hours per night. Nutrition: balanced diet and supplemental vitamins (garlic and fish oil). The medical issues the patient is following up for in clude All identified problems below, blood sugar issues, high blood pressure and high cholesterol. fasting blood sugars :.Encounter Diagnosis: Diabetes type II,uncontrolled, no comp (250.02), Hypercholesteremia (272.0), Hypertension with Renal Disease (403.90), Benign essential hypertension (401.1), Abnormal Glucose Tolerance Test (790.22), NEOP, NOS, BLADDER (239.4) [facility] Office Visit On: 06-Nov-2010 6:51 Encounter Reason: Follow up for chronic medical issues - The patient feels well with minor complaints, has decreased energy level and is sleeping poorly. Patient has been compliant with instructions. Current medication u End: 06-Nov-2010 7:46 se: no side effects and compliant with dosing regimen. Patient sleeps 5 hours per night. Nutrition: balanced diet and no supplemental vitamins & iron. The medical issues the patient is following up for include All identified problems below, blood sugar issues, high blood pressure, high cholesterol and other. blood pressure range :, fasting blood sugars : and weight :.Encounter Diagnosis: Chronic kidney disease, stage III (moderate) (585.3), Hypercholesteremia (272.0), Benign essential hypertension (401.1), Obesity, morbid (278.01), Hypertension with Renal Disease (403.90), Diabetes typeII,controlled, renal comp (250.40), Abnormal EKG(794.31) [facility] Office Visit On: 24-Sep-2010 9:26 Encounter Reason: Follow up for diabetes/glucose intolerance - The patient feels well with minor complaints, has good energy level and is sleeping poorly. Patient has been compliant with instructions. Nutrition: balanced End: 24-Sep-2010 9:56 diet. fasting blood sugars : (100 this am).Encounter Diagnosis: Diabetes type II,uncontrolled, no comp (250.02) [facility] Office Visit On: 07-Sep-2010 9:05 Encounter Reason: Follow up for diabetes/glucose intolerance - The patient feels well with minor complaints, has decreased energy level and is sleeping poorly. Patient has been compliant with instructions. Nutrition: bal End: 07-Sep-2010 9:53 anced diet. fasting blood sugars : (low at times 65)., [ADDITIONAL REASON] Follow up Meds - The patient feels well with minor complaints, has decreased leonardo rgy level and is sleeping poorly. Patient has been compliant with instructions. Current medication use: no side effects and compliant with dosing regimen. Nutrition: balanced diet. Encounter Diagnosis: Diabetes type II,uncontrolled, no comp (250.02) , Benign essential hypertension (401.1), NEOP, NOS, BLADDER (239.4) [facility] Office Visit On: 10-Aug-2010 13:19 Encounter Reason: Follow up, Laboratory Test Results - Date: (08/03/10).Encounter Diagnosis: Benign essential hypertension (401.1), Hypercholesteremia (272.0), Chronic kidney disease, stage III (moderate) (585.3), Cough (786.2), Leukocytosis (288.8) End: 10-Aug-2010 14:12 [facility] Office Visit On: 03-Aug-2010 10:22 Encounter Reason: Follow up for diabetes/glucose intolerance - The patient does not feel well. Patient has been compliant with instructions., [ADDITIONAL REASON] Follow up for chronic medical issues - The patient does not feel well, has decre End: 03-Aug-2010 13:02 ased energy level and is sleeping well. Patient has been compliant with instructions. Current medication use: no side effects and compliant with dosing regimen. Patient sleeps 6 hours per night. Nutriti on: inappropriate diet and supplemental vitamins. The medical issues the patient is following up for include All identified problems below, blood sugar issues, high blood pressure and high cholesterol. fasting blood sugars : (350). Encounter Diagnosis: Abnormal Glucose Tolerance Test (790.22), Diabetes type II,uncontrolled, no comp (250.02), Obesity, morbid (278.01), Hypercholesteremia (272.0), Benign essential hypertension (401.1) [facility] Office Visit On: 20-Jun-2009 6:58 Encounter Reason: Follow up for chronic medical issues - The patient feels well with minor complaints ,has decreased energy level and is sleeping poorly. Patient has been compliant with instructions. Current medication u End: 20-Jun-2009 7:36 se: no side effects and compliant with dosing regimen. Patient sleeps 6 hours per night. Nutrition: balanced diet. The medical issues the patient is following up for include All identified problems belo w ,blood sugar issues and high blood pressure. weight :. 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 Patient has been non-compliant with instructions. Current medication use: no side effects and End: 17-Mar-2009 9:24 compliant with dosing regimen. Patient sleeps 4 hours per night. Nutrition: balanced diet. The medical issues the patient is following up for include All identified problems below ,high blood pressure a nd high cholesterol. blood pressure range : and weight :. , [ADDITIONAL REASON] Follow up, Laboratory Test Results - Date: (02/13/09). Encounter Diagnosis: Abnormal Glucose Tolerance Test (790.22), Hypercholesteremia (272.0), Benign essential hypertension (401.1), Obesity, unspecified (278.00) [facility] Office Visit On: 13-Feb-2009 9:56 Encounter Reason: Follow up for chronic medical issues - The patient feels well with minor complaints and is sleeping poorly. Patient has been compliant with instructions. Current medication use: no side effects and comp End: 13-Feb-2009 12:39 liant with dosing regimen. Patient sleeps 5 hours per night. Nutrition: inappropriate diet and supplemental vitamins. The medical issues the patient is following up for include All identified problems b elow ,high blood pressure and high cholesterol. weight :. , [ADDITIONAL REASON] Follow up, Laboratory Test Results - Date: (has them). 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 The course has been recurrent. The urine is described as pink in color (re End: 26-Jun-2007 17:26 d, orangish in toliet). There has been no associated dysuria or flank pain. Encounter Diagnosis: Hematuria (599.7), Nephrolithiasis (274.11), Elevated Blood Pressure without diagnosis of Hypertension (796.2) [facility] Office Visit On: 19-Jun-2007 12:30 Encounter Reason: Blood in urine - The onset of the blood in urine has been sudden and has been occurring in an intermittent pattern for 1 days (sat). The course has been decreasing. The urine is described as pink in col End: 19-Jun-2007 15:00 or (red, orangish in toliet). There has been no associated dysuria or flank pain. Encounter Diagnosis: Hematuria (599.7), Elevated Blood Pressure without diagnosis of Hypertension (796.2) [facility] Historical Summary On: 07-Jun-2007 9:34 [facility] End: 07-Jun-2007 9:36 Office Visit On: 06-Jun-2007 12:57 Encounter Reason: Blood in urine - The onset of the blood in urine has been sudden and has been occurring in an intermittent pattern for 1 days (sat). The course has been decreasing. The urine is described as pink in col End: 06-Jun-2007 14:03 or (red, orangish in toliet). There has been no associated dysuria or flank pain. Encounter Diagnosis: Hematuria (599.7), Elevated Blood Pressure without diagnosis of Hypertension (796.2) [facility] Payers Leeann witt guarantor
--- OUTSIDE RECORDS SUMMARY | 2018-07-17 07:39 | XMS RPT_ITS | Continuity of Care Document ---
:1945 Author Organization [facility] Address [address] [facility] [address] [place] [address] Phone Care Team Providers Name Role Phone Kelly Vargas DO Unavailable Mamie Clau Unavailable [facility] Wound Unavailable Donaldo Burnham MD Unavailable [facility] Unavailable Luis, SCHUYLER Robb Unavailable Unavailable [...] 0 days Quantity: 90 {Tablet} Refills: 3 Ordered:21-Feb-2017 Shamar Vargas DO, DO, Kathleen Start : 21-Feb-2017 Active Nucynta 50 MG Oral Tablet 1 (one) Tablet bid for 30 days Quantity: 60 {Tablet} Refills: 0 Ordered:15-Apr-2017 Audrey PRYORSharon E Start : 15-Apr-2017 Active [place] /16 31G X 5 MM Miscellaneous 1 (one) Misc Misc 4times daily for 0 days Quantity: 2 {Box} Refills: 3 Ordered:19-Dec-2015 Shamar Vargas DO, DO, Kathleen Start : 19-Dec-2015 Active Primidone 50 MG Oral Tablet 2 (two) Tablet tid for 0 days Quantity: 270 {Tablet} Refills: 0 Ordered:14-Mar-2018 Shamar Vargas DO, DO, Kathleen Start : 14-Mar-2018 Active Simvastatin 80 MG Oral Tablet 1 [...] End : 09-Jan-2018 Inactive Comments:changed by jahaira 03/29/16[facility] Phentermine HCl 37.5 MG Oral Tablet 1 [...] 10-Apr-2015 End : 10-Apr-2015 Inactive Comments:DX: 250.02NPI: [id number] TRAMADOL HCL, 50MG (Oral Tablet) 1 q [...] as of 17-Feb-2017 Abnormal glucose tolerance test (R73.02, 790.22) Status: Inactive as of 26-Dec-2014 Acute [...] AND Physical Result: Comments: See Note; NOTES: [facility] [address] [place] [address] Wound Ctr History AND Physical 07/25/17 1656 MR#: [id number] Acct: [id number] Name: PERRY ROCA Rep #: [id number] : 1945 71 From: Juan J Edwards [...] Date Recorded By Document 11/16/16 16:26 DL [id number] 11/16/16 16:29 DL 11/16/16 16:26 Wound Center Nurse 1 [Ulcer Assessment] #1 right thigh ucler -Current Size (cm) - Length 0 -Current Size (cm) - Width 0 -Current Size (cm) - Depth 0 -Total Squa re Cm 0 -Photo Taken Yes -Epithelialization Large 67-100% -Exudate Amt None Present (0 %) -Granulation Amt Large (67-100%) -Granulation Quality [place] -Necrosis Amt None Present (0 %) -Structure [...] AND Physical Result: Comments: See Note; NOTES: [facility] [address] [place] [address] Wound Ctr History AND Physical 11/02/16 0907 MR#: [id number] Acct: [id number] Name: PERRY ROCA Rep #: [id number] : 1945 71 From: Juan J Edwards [...] Date Recorded By Document 11/02/16 08:41 MW [id number] 11/02/16 08:47 MW 11/02/16 08: 41 Wound [...] Date Recorded By Document 11/02/16 08:55 DV [id number] 11/02/16 09:00 DV 11/02/16 08:55 Wound Center Nurse 2 [Procedure/Treatment] #1 right thigh ucler -Time 08:57 -Correct Patient Yes - Correct Side, Site, Position Yes -Correct Pro cedure Yes -Procedure Performed Yes -Wound/Ulcer Outcome Not Healed -Ulcer Cleansing Rinsed/ Irrigated with Saline -Foul Odor after Cleansing No -Bioengineered Tissue No -Cetacaine [place] No -Bleeding C ontrolled with Pressure -Treatment [...] Date Recorded By Document 11/02/16 08:55 DV [id number] 11/02/16 09:00 DV 11/02/16 08:55 Wound Center [...] AND Physical Result: Comments: See Note; NOTES: [facility] [address] [facility] [place] [address] Wound Ctr History AND Physical 10/12/1644 MR#: [id number] Acct: [id number] Name: PERRY ROCA Rep #: [id number] : 1945 71 From: Paul Gibson MD [...] Recorded By Document 0 10/12/16 08:47 TM [id number] 10/12/16 09:01 10/12/16 08:47 Wound Center Nurse [...] Date Re corded By Document 10/12/16 09:18 [id number] 10/12/16 09:19 10/12/16 09:18 Wound Center Nurse [...] Saline -Foul Odor after Cleansing No -Cetacaine [place] No -Bleeding Controlled with Pressure -Treatment Response [...] Date Recorded By Document 10/12/16 09:18 DANA [id number] 10/12/16 09:19 DANA 10/12/16 09:18 Wound Center [...] Saline -Foul Odor after Cleansing No -Cetacaine [place] No -Bleeding Controlled with Pressure -Treatment Response [...] - PT Result: Comments: See Note; NOTES: [facility] Physical Therapy [facility] [address] [place] [address] Fax REHABILITATION SERVICES INITIAL EVALUATION MR#: [id number] Acct: [id number] Name: PERYR CLARK Rep #: [id number] : 1945 71 From: Jono Fowler PT, ATC Referring Dr.: Kelly Vargas DO Status: REG [facility] Insurance: [facility] Patient's Visit Information PERRY CLARK is a [...] shoulder pain. 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 Please let me know if there are questions or concerns regarding this plan of care. Physician Signature: Date: <Electronically signed by Jono Fowler PT, ATC> 05/03/16 1103 CC: Kelly Vargas DO [facility] Signed For Medicare only , by signing this I certify the plan of care. Physicians Signature Date 29-Apr-2016 Shoulder min 2 Views Result: Comments: See Note; NOTES: [facility] Imaging Services [address] [place] [address] Verdana 4d Shoulder min 2 Views MR#: [id number] Acct: [id number] Name: PERRY CLARK #: [id number] : 1945 M 71 From: Jared Lyman DO PCP: Kelly Vargas DO Status: REG CLI Study: Shoulder min 2 Views Date of Exam: 04/29/16 Exam# [id number] Ordering Dr: Kelly Vargas DO UDY: X-RAY [...] Jared Lyman DO at 12:18 EST Tel [phone], Service support [phone], CC: Kelly Vargas DO Sewing Machine Attachment Tester: Signed 04-Jul-2015 ELECTROCARDIOGRAM, COMPLETE (ECG) (52179) Comments: nsr no acute chg - ekg- scanned into chart Result: [MEASUREMENTS ANALYSIS] Date of Test: 07/04/2015 08:14:52; Heart Rate: 77; AL Interval: 194; QRS: 84; QT Interval: 346; Corrected QT Interval (QTc): 375; P Wave [place]: 42; QRS [place]: -15; T Wave [place] : 51; Blood Pressure: 128/82 [ECG DIAGNOSTIC STATEMENTS] Date of Test: 07/04/2015 08:14:52; Summary: 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 ABNORMAL 06-Feb-2015 Emergency Department Summary Result: Comments: See Note; NOTES: [facility] Medical Records Department [address] [place] [address] Emergency Department Summary MR#: [id number] Acct: [id number] Name: PERRY CLARK Rep #: [id number] : 1945 69 From: Ralph Jimenez MD [...] arrival. He cut his finger with a floor grinder. He is right handed. Tetanus is unknown. [...] C: Kelly Arriaga DO T: NTS JOB: [id number] 02/06/15 0829 <Electronically signed by Ralph Jimenez MD> Date Ralph Jimenez MD Cosigner Signature (If Indicated): Date CC: Kelly Vargas DO; Ralph Chang DO Date Dictat ed: 02/03/151523 Date Transcribed: 02/03/151523 Sewing Machine Attachment Tester: Signed 03-Feb-2015 Discharge Instruction Result: Comments: See Note; NOTES: [facility] Medical Records Department [address] [place] [address] Discharge Instruction 02/03/151519 MR#: [id number] Acct: [id number] Name: PERRY CLARK Rep #: [id number] : 1945 69 From: Ralph Jimenez MD [...] Active 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 and had glaucoma test done [...] Calculated 2.17 m2 Head Circumference 0.00 cm 00-Ovw-186778:57 Pulse 64 /min Comments: Pattern: Regular Respiration [...] 0.00 cm Results Date Description Value Details 04-Lmr-090844:07 Microscopic Examination Comments: PATIENT NOT FASTINGPERFORMED BY: HiddenbedAt[facility] [id number] Bacteria None seen (Normal) Mucus Threads Present (Normal) Crystal Type Calcium Oxalate (Normal) Crystals Present (Abnormal) Cast Type Hyaline casts (Normal) Casts Present {/lpf} (Abnormal) Epithelial Cells (non renal) None seen {/hpf} (Normal) Range: 0 - 10 RBC 0-2 {/hpf} (Normal) Range: 0 - 2 WBC 0-5 {/hpf} (Normal) Range: 0 - 5 07-Scq-472852:07 URINALYSIS, W/ MICRO (73194) Comments: PATIENT NOT FASTINGPERFORMED BY: [employer] Humphreys LIFEMODELERAtrium Health Anson [id number] Microscopic Examination See below: (Normal) Comments: Microscopic was indicated and was performed. Nitrite, Urine Negative (Normal) Urobilinogen,Semi-Qn 0.2 mg/dL (Normal) Range: 0.2-1.0 Bilirubin Negative (Normal) Occult Blood Negative (Normal) Ketones 1+ (Abnormal) Glucose Trace (Abnormal) Protein 1+ (Abnormal) WBC Esterase Negative (Normal) Appearance Clear (Normal) Urine-Color Yellow (Normal) pH 5.0 (Normal) Range: 5.0-7.5 Specific [place] 1.029 (Normal) Range: 1.005-1.030 90-Rhn-746602:07 MICROALBUMIN: CREATININE RATIO Comments: PATIENT NOT FASTINGPERFORMED BY: [employer] [facility] [id number] (84581) AND (39366) Alb/Creat Ratio 47.7 {mg/g_creat} (Abnormal) Range: 0.0-30.0 Albumin, Urine 99.5 ug/mL (Normal) Creatinine, Urine 208.5 mg/dL (Normal) :57 HgA1C , Office (51979) HgA1C , Office 7.9 % (Abnormal) Range: 4.6 - 7.1 :57 Blood Glucose , Office (73108) Blood Glucose , Office 204 (Normal) 27-Sep-20171:31 Anaerobic & Aerobic Comments: right lower extremity; PATIENT NOT FASTINGPERFORMED BY: ZEALER [employer] [facility] [id number] Information: RIGHT LEG SRC:RL Culture (21066) Result 1 NG36 (Normal) Comments: No growth in 36 - 48 hours. Aerobic Culture Final report (Normal) Result 1 NAAG72 (Normal) Comments: No aerobic or anaerobic growth in 72 hours. Anaerobic Culture Final report (Normal) 11-Iok-088475:39 TSH (THYROID STIMULATING Comments: PATIENT NOT FASTINGPERFORMED BY: BRAINREPUBLIC[address] [id number] BY: Laserlike70 [facility] [id number] HORMONE) (00491) TSH 2.660 {uIU/mL} (Normal) Range: 0.450-4.500 61-Cva-979617:39 CBC with auto diff Comments: PATIENT NOT FASTINGPERFORMED BY: BRAINREPUBLIC[address] [id number] BY: ZEALER [employer] [facility] [id number] (63283) Immature Grans (Abs) 0.0 {x10E3/uL} (Normal) Range: [...] 4.14-5.80 WBC 9.0 {x10E3/uL} (Normal) Range: 3.4-10.8 51-Rro-438440:39 METABOLIC PANEL, Comments: PATIENT NOT FASTINGPERFORMED BY: BN [facility] [address] [id number] BY: CB [facility] Xpohiy7650 [facility] [id number] COMPREHENSIVE (94942) ALT (SGPT) 21 [iU]/L (Normal) Range: 0-44 [...] 8-27 Glucose 147 mg/dL (Abnormal) Range: 65-99 40-Von-197578:39 LIPOPROTEIN, BLD, BY NMR Comments: PATIENT NOT FASTINGPERFORMED BY: BN [facility] [address] [id number] BY: CB [facility] Ijayqh2062 [facility] [id number] (54150) LP-IR Score 92 (Abnormal) Comments: INSULIN RESISTANCE MARKER <--Insulin Sensitive Insulin Resistant--> Percentile in Reference PopulationInsulin Resistance ScoreLP-IR Score Low 25th 50th 75th High <27 27 45 63 >63LP-IR Score is inaccurate if patient is non-fasting. .The LP-IR score is a laboratory developed i [facility] that has beenassociated with insulin [...] were developed and their performance characteristicsdetermined by [employer]. These assays have not been cleared by [...] 1600 - 2000 Very High > 2000 87-Pxm-402234:39 CALCIFEDIOL (86963) Comments: PATIENT NOT FASTINGPERFORMED BY: [facility] [address] [id number] BY: [facility] Fknonh1076 [facility] [id number] Vitamin D, 25-Hydroxy 37.3 ng/mL (Normal) Range: 30.0-100.0 Comments: Vitamin D deficiency has been defined by the [place] ofMedicine and an Endocrine Society practice guideline as alevel of serum 25-OH vitamin D less than 20 ng/mL (1,2).The Endocrine Society went on to further define vitamin Dinsufficiency as a level between 21 and 29 ng/mL (2).1. IOM (Gallup of Medicine). 2010. Dietary reference intakes for calcium and D. [place]: The National Academies Press.2. Sandy MF, Braulio DALTON, Darren STILL, et al. Evaluation, treatment, and prevention of vitamin D deficiency: an Endocrine Society clinical practice guideline. JCEM. 2010; 96(7):1911-30. :29 HgA1C , Office (79019) HgA1C , Office 7.3 % (Abnormal) Range: 4.6 - 7.1 :29 Blood Glucose , Office (92047) Blood Glucose , Office 151 (Normal) 6-Wnn-530201:31 Microscopic Examination Comments: PATIENT WAS FASTINGPERFORMED BY: BRAINREPUBLIC[address] [id number] BY: Artimplant ABlin6370 [facility] [id number] Bacteria Few (Normal) Mucus Threads Present (Normal) Crystal Type Calcium Oxalate (Normal) Crystals Present (Abnormal) Epithelial Cells (non renal) None seen {/hpf} (Normal) Range: 0 - 10 RBC 0-2 {/hpf} (Normal) Range: 0 - 2 WBC 11-30 {/hpf} (Abnormal) Range: 0 - 5 2-Ynv-854649:31 LIPOPROTEIN, BLD, BY NMR Comments: PATIENT WAS FASTINGPERFORMED BY: BRAINREPUBLIC[address] [id number] BY: [employer]implant ABlin6370 [facility] [id number] (45203) LP-IR Score 89 (Abnormal) Comments: INSULIN RESISTANCE MARKER <--Insulin Sensitive Insulin Resistant--> Percentile in Reference PopulationInsulin Resistance ScoreLP-IR Score Low 25th 50th 75th High <27 27 45 63 >63LP-IR Score is inaccurate if patient is non-fasting. .The LP-IR score is a laboratory developed i [facility] that has beenassociated with insulin [...] were developed and their performance characteristicsdetermined by [facility]. These assays have not been cleared by [...] - 2000 Very High > 27-May-201710:31 CALCIFEDIOL (33426) Comments: PATIENT WAS FASTINGPERFORMED BY: LabQlibri[address] [id number] BY: [facility] [address] Oliver StreetDublin [place] [id number] Vitamin D, 25-Hydroxy 35.2 ng/mL (Normal) Range: 30.0-100.0 Comments: Vitamin D deficiency has been defined by the [place] ofMedicine and an Endocrine Society practice guideline as alevel of serum 25-OH vitamin D less than 20 ng/mL (1,2).The Endocrine Society went on to further define vitamin Dinsufficiency as a level between 21 and 29 ng/mL (2).1. IOM (Gallup of Medicine). 2010. Dietary reference intakes for calcium and D. [place]: The National Academies Press.2. Sandy MF, Braulio DALTON, Darren STILL, et al. Evaluation, treatment, and prevention of vitamin D deficiency: an Endocrine Society clinical practice guideline. JCEM. 2010; 96(7):1911-30. 1-Aon-942436:31 TSH (76855) Comments: PATIENT WAS FASTINGPERFORMED BY: BRAINREPUBLIC[address] [id number] BY: [employer] Vmxkjj5167 [facility] [id number] TSH 2.920 {uIU/mL} (Normal) Range: 0.450-4.500 3-Egz-011699:31 URINALYSIS, W/ MICRO Comments: PATIENT WAS FASTINGPERFORMED BY: [employer] [id number] BY: [employer] Navvxw4826 [facility] [id number] (12473) Microscopic Examination See below: (Normal) Comments: Microscopic was indicated and was performed. Nitrite, Urine Positive (Abnormal) Urobilinogen,Semi-Qn 0.2 mg/dL (Normal) Range: 0.2-1.0 Bilirubin Negative (Normal) Occult Blood Negative (Normal) Ketones Negative (Normal) Glucose Trace (Abnormal) Protein Trace (Normal) WBC Esterase Negative (Normal) Appearance Clear (Normal) Urine-Color Yellow (Normal) pH 5.0 (Normal) Range: 5.0-7.5 Specific [place] 1.025 (Normal) Range: 1.005-1.030 2-Qql-667718:31 MICROALBUMIN: CREATININE Comments: PATIENT WAS FASTINGPERFORMED BY: PolyInnovationsDavid [place] 917527 [facility] [id number] BY: [facility]6370 [facility] [id number] RATIO (13948) AND (82572) Alb/Creat Ratio 60.1 {mg/g_creat} (Abnormal) Range: 0.0-30.0 Albumin, Urine 107.3 ug/mL (Normal) Creatinine, Urine 178.6 mg/dL (Normal) 1-Pau-908066:31 METABOLIC PANEL, Comments: PATIENT WAS FASTINGPERFORMED BY: PolyInnovationsDavid [place] 917527 [facility] [id number] BY: PolyInnovationsRaritan [facility] Center, Old BridgeRtodms8747 [facility] [id number] COMPREHENSIVE (45150) ALT (SGPT) 21 [iU]/L (Normal) Range: 0-44 [...] Comments: PATIENT WAS FASTINGPERFORMED BY: BN [facility] Apnvrsalji6502 [facility] [id number] BY: CB [facility] Sybzkg4911 [facility] [id number] (67862) Immature Grans (Abs) 0.0 {x10E3/uL} (Normal) Range: [...] (Normal) Range: 3.4-10.8 :55 HgA1C , Office (28231) HgA1C , Office 8.4 % (Abnormal) Range: 4.6 - 7.1 :55 Blood Glucose , Office (52151) Blood Glucose , Office 197 (Normal) :45 HgA1C , Office (08119) HgA1C , Office 8.1 % (Abnormal) Range: 4.6 - 7.1 :45 Blood Glucose , Office (78537) Blood Glucose , Office 183 (Normal) :30 Culture, Urine Comments: [facility] Virafmwlzt4884 [facility] [place], [address] CUUR See Note (Normal) Comments: [...] <=0.5 S(NF) indicates non- formulary drug at [facility]. Approval by Infectious Disease Specialist required before non-formulary drugs may be ordered and/or dispensed. * CLSI guidelines does not recommend testing of cephalosporins. This interpretation is deduced from Beta-lactam/penicillin results. :32 Miscellaneous Lab Procedure Comments: Test(s) Ordered: [id number], TAPENDADOL, LAV TOP, ROOM [facility] Rxpt[address] [place], [address] [facility] Comments: TEST RESULT UNITS REFERENCE INTERVALTapentadol, WBTapentadol 43.3 ng/mLThis test was developed and its performance characteristicsdetermined by [facility]. It has not LAB (Normal) been cleared or approvedby the Food and Drug Administration.REFERENCE RANGE: Not Established TESTING PERFORMED AT [facility]. ORIGINAL REPORT ON F TEST ILE IN LAB CONTAINS ADDITIONAL TEST SITE INFORMATION. 93-Lqh-729554:09 Microscopic Examination Comments: PATIENT WAS FASTINGPERFORMED BY: [facility]6370 [facility] [id number] Bacteria Few (Normal) Mucus Threads Present (Normal) Epithelial Cells (non renal) 0-10 {/hpf} (Normal) Range: 0 - 10 RBC 0-2 {/hpf} (Normal) Range: 0 - 2 WBC 11-30 {/hpf} (Abnormal) Range: 0 - 5 55-Lbk-867939:09 TSH (14722) Comments: PATIENT WAS FASTINGPERFORMED BY: [facility]6370 [facility] [id number] TSH 2.510 {uIU/mL} (Normal) Range: 0.450-4.500 66-Ivn-346300:09 CALCIFEDIOL (85449) Comments: PATIENT WAS FASTINGPERFORMED BY: [facility]6370 [facility] [id number] Vitamin D, 25-Hydroxy 42.9 ng/mL (Normal) Range: 30.0-100.0 Comments: Vitamin D deficiency has been defined by the [place] ofMedicine and an Endocrine Society practice guideline as alevel of serum 25-OH vitamin D less than 20 ng/mL (1,2).The Endocrine Society went on to further define vitamin Dinsufficiency as a level between 21 and 29 ng/mL (2).1. IOM (Gall[place] of Medicine). 2010. Dietary reference intakes for calcium and D. [place]: The National Academies Press.2. Sandy MF, Braulio [place], Darren STILL, et al. Evaluation, treatment, and prevention of vitamin D deficiency: an Endocrine Society clinical practice guideline. JCEM. 2010; 96(7):1911-30. 83-Rza-512396:09 URINALYSIS, W/ MICRO (02382) Comments: PATIENT WAS FASTINGPERFORMED BY: PolyInnovationsRaritan Bay Medical Center, Old BridgeIswmll7818 [facility] [id number] Microscopic Examination See below: (Normal) Comments: Microscopic was indicated and was performed. Nitrite, Urine Negative (Normal) Urobilinogen,Semi-Qn 0.2 mg/dL (Normal) Range: 0.2-1.0 Bilirubin Negative (Normal) Occult Blood Negative (Normal) Ketones Negative (Normal) Glucose Negative (Normal) Protein 1+ (Abnormal) WBC Esterase 1+ (Abnormal) Appearance Cloudy (Abnormal) Urine-Color Yellow (Normal) pH 7.5 (Normal) Range: 5.0-7.5 Specific [place] 1.024 (Normal) Range: 1.005-1.030 65-Wjw-861220:09 MICROALBUMIN: CREATININE RATIO Comments: PATIENT WAS FASTINGPERFORMED BY: PolyInnovationsRaritan Bay Medical Center, Old BridgeAnmpsd2625 [facility] [id number] (56364) AND (68919) Microalb/Creat Ratio 49.7 {mg/g_creat} (Abnormal) Range: 0.0-30.0 Microalbumin, Urine 78.3 ug/mL (Normal) Creatinine, Urine 157.5 mg/dL (Normal) :09 METABOLIC PANEL, COMPREHENSIVE Comments: PATIENT WAS FASTINGPERFORMED BY: PolyInnovationsRaritan Bay Medical Center, Old BridgeZogoox7056 [facility] [id number] (39100) ALT (SGPT) 19 [iU]/L (Normal) Range: 0-44 [...] Glucose, Serum 136 mg/dL (Abnormal) Range: 65-99 23-Rhn-064380:09 LIPID PANEL (32765) Comments: PATIENT WAS FASTINGPERFORMED BY: [employer] [place] [id number] LDL/HDL Ratio 2.5 {ratio_units} (Normal) Range: 0.0-3.6 Comments: LDL/HDL Ratio Men Women 1/2 Avg.Risk 1.0 1.5 Av g.Risk 3.6 3.2 2X Avg.Risk 6.2 5.0 3X Avg.Risk 8.0 6.1 LDL Cholesterol Calc 101 mg/dL (Abnormal) Range: 0-99 VLDL Cholesterol Meche 28 mg/dL (Normal) Range: 5-40 HDL Cholesterol 41 mg/dL (Normal) Triglycerides 139 mg/dL (Normal) Range: 0-149 Cholesterol, Total 170 mg/dL (Normal) Range: 100-199 59-Hpk-900515:09 CBC W/AUTO DIFF WBC (09205) Comments: PATIENT WAS FASTINGPERFORMED BY: Laserlike70 Double RoboticsAt[facility] Health [facility]son [id number] Immature Grans (Abs) 0.0 {x10E3/uL} (Normal) Range: [...] (Normal) Range: 3.4-10.8 :36 HgA1C , Office (87829) HgA1C , Office 7.3 % (Abnormal) Range: 4.6 - 7.1 :36 Blood Glucose , Office (73011) Blood Glucose , Office 131 (Normal) 75-Ljl-792454:30 Culture, Aerobic, Comments: PERFORMED BY: LabCoRaritan Bay Medical Center, Old BridgeHbitkb5928 [facility] [id number] Information: SRC:RL Bacterial ID (83284) Result 1 MSFGN (Normal) Comments: 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 Aerobic Bacterial Culture Final report (Normal) :15 Miscellaneous Lab Procedure Comments: Comments: [id number]; FISH URINE TEST; 50MLTest(s) Ordered: [id number]; FISH URINE TEST; 50MLWWayne [facility]Care [facility] [address] [place], [address] [facility] LAB TEST (Normal) Comments: Scanned image report available in EMR :15 PSA,Total - Annual Screen Comments: [facility] [address] [place], [id number] PSA,TOT SCREEN 0.14 ng/mL (Normal) Range: 0.00-4.00 Comments: This test was performed using the TPSA assay method for theITeam chemistry system. Values obtained with differentassay methods cannot be used interchangably.When changing PSA assays in the course of monitoring apatient, additional sequential testing should be carriedout to confirm baseline values. :15 Testosterone, Serum Total Comments: [facility] [address] [place], [address] Testosterone 396 ng/dL (Normal) Range: 241-827 :45 Culture, Urine Comments: [facility] [address]yhgiztn[address] [place], [address] CUUR See Note (Normal) Comments: Urine CultureORGANISM 1: Mixed Gram Positive OrganismsColony Count 25,000-50,000MIX CULTURE Mixed contaminants. Submit a new specimen if indicated. :30 HgA1C , Office (65524) HgA1C , Office 9.5 % (Abnormal) Range: 4.6 - 7.1 :30 Blood Glucose , Office (08840) Blood Glucose , Office 178 (Normal) 73-Crq-655288:57 Fecal Occult Blood , Office (91209) Fecal Occult Blood , Office (Inhouse) negative (Normal) 29-Ton-602623:51 POTASSIUM SERUM (85800) Comments: PATIENT NOT FASTINGPERFORMED BY: [facility] Sxiwas1439 HumphreysRanken [facility] [id number] Information: [id number] Potassium, Serum 4.9 mmol/L (Normal) Range: 3.5-5.2 :23 HgA1C , Office (40934) HgA1C , Office 8.4 % (Abnormal) Range: 4.6 - 7.1 :23 Blood Glucose , Office (54573) Blood Glucose , Office 129 (Normal) :34 TSH (THYROID STIMULATING Comments: PATIENT WAS FASTINGPERFORMED BY: [facility]6370 [facility] [id number] HORMONE) (10245) TSH 1.580 {uIU/mL} (Normal) Range: 0.450-4.500 :34 CALCIFEDIOL (19020) Comments: PATIENT WAS FASTINGPERFORMED BY: [facility]6370 [facility] [id number] Vitamin D, 25-Hydroxy 44.9 ng/mL (Normal) Range: 30.0-100.0 Comments: Vitamin D deficiency has been defined by the [place] ofMedicine and an Endocrine Society practice guideline as alevel of serum 25-OH vitamin D less than 20 ng/mL (1,2).The Endocrine Society went on to further define vitamin Dinsufficiency as a level between 21 and 29 ng/mL (2).1. IOM (Gall[place] of Medicine). 2010. Dietary reference intakes for calcium and D. [place]: The National Academies Press.2. Sandy MF, Braulio NC, Darren STILL, et al. Evaluation, treatment, and prevention of vitamin D deficiency: an Endocrine Society clinical practice guideline. JCEM. 2010; 96(7):1911-30. :34 METABOLIC PANEL, COMPREHENSIVE Comments: PATIENT WAS FASTINGPERFORMED BY: [facility]6[address] [facility] [id number] (32748) ALT (SGPT) 20 [iU]/L (Normal) Range: 0-44 [...] mg/dL (Abnormal) Range: 65-99 :34 LIPID PANEL (69855) Comments: PATIENT WAS FASTINGPERFORMED BY: [facility] [id number] LDL/HDL Ratio 2.4 {ratio_units} (Normal) Range: 0.0-3.6 [...] auto diff Comments: PATIENT WAS FASTINGPERFORMED BY: [employer]6370 Double RoboticsAt[facility] Health [facility] [id number] Information: [id number] (34592) Immature Grans (Abs) 0.0 {x10E3/uL} (Normal) Range: [...] Microscopic Examination Comments: PATIENT WAS FASTINGPERFORMED BY: [facility]CoR[facility], Old BridgeYtuorp4190 [facility] [id number] Bacteria Few (Normal) Mucus Threads Present (Normal) Crystal Type Calcium Oxalate (Normal) Crystals Present (Abnormal) Epithelial Cells (non renal) None seen {/hpf} (Normal) Range: 0 - 10 RBC 0-2 {/hpf} (Normal) Range: 0 - 2 WBC 11-30 {/hpf} (Abnormal) Range: 0 - 5 :22 CBC W/AUTO DIFF WBC Comments: PATIENT WAS FASTINGPERFORMED BY: [facility]CoR[facility], Old BridgeWnetxo5871 [facility] [id number] Information: [id number] (15033) Immature Grans (Abs) 0.0 {x10E3/uL} (Normal) Range: [...] 4.14-5.80 WBC 8.9 {x10E3/uL} (Normal) Range: 3.4-10.8 8-Qes-372017:22 TSH (11861) Comments: PATIENT WAS FASTINGPERFORMED BY: PolyInnovationsRaritan [facility], Old BridgeHxpeni6919 [facility] [id number] TSH 3.050 {uIU/mL} (Normal) Range: 0.450-4.500 1-Req-667032:22 URINALYSIS, W/ MICRO (00203) Comments: PATIENT WAS FASTINGPERFORMED BY: [facility]6[address] [facility] [id number] Microscopic Examination See below: (Normal) Comments: Microscopic was indicated and was performed. Nitrite, Urine Positive (Abnormal) Urobilinogen,Semi-Qn 0.2 mg/dL (Normal) Range: 0.2-1.0 Bilirubin Negative (Normal) Occult Blood Negative (Normal) Ketones Negative (Normal) Glucose Negative (Normal) Protein Negative (Normal) WBC Esterase 1+ (Abnormal) Appearance Clear (Normal) Urine-Color Yellow (Normal) pH 6.0 (Normal) Range: 5.0-7.5 Specific [place] 1.020 (Normal) Range: 1.005-1.030 :22 MICROALBUMIN: CREATININE RATIO Comments: PATIENT WAS FASTINGPERFORMED BY: [facility]osDx [facility]6370 [facility] [id number] (97067) AND (31153) Microalb/Creat Ratio 23.2 {mg/g_creat} (Normal) Range: 0.0-30.0 Microalbumin, Urine 23.0 ug/mL (Abnormal) Range: 0.0-17.0 Creatinine, Urine 99.2 mg/dL (Normal) Range: 22.0-328.0 :22 METABOLIC PANEL, COMPREHENSIVE Comments: PATIENT WAS FASTINGPERFORMED BY: [facility]6370 [facility] [id number] (77571) ALT (SGPT) 23 [iU]/L (Normal) Range: 0-44 [...] 95 mg/dL (Normal) Range: 65-99 :22 CALCIFIDIOL (21067) VIT D 25 Comments: PATIENT WAS FASTINGPERFORMED BY: [employer]70 [employer] [facility] HospitalOctmamiAtrium Health [facility] [id number] Vitamin D, 25-Hydroxy 55.3 ng/mL (Normal) Range: 30.0-100.0 Comments: Vitamin D deficiency has been defined by the [place] ofMedicine and an Endocrine Society practice guideline as alevel of serum 25-OH vitamin D less than 20 ng/mL (1,2).The Endocrine Society went on to further define vitamin Dinsufficiency as a level between 21 and 29 ng/mL (2).1. IOM (Gallup of Medicine). 2010. Dietary reference intakes for calcium and D. [place]: The National Academies Press.2. Sandy MF, Braulio NC, Darren STILL, et al. Evaluation, treatment, and prevention of vitamin D deficiency: an Endocrine Society clinical practice guideline. JCEM. 2010; 96(7):1911-30. :22 LIPID PANEL (69372) Comments: PATIENT WAS FASTINGPERFORMED BY: [employer]6370 [facility] [id number] LDL/HDL Ratio 1.9 {ratio_units} (Normal) Range: 0.0-3.6 [...] Range: 100-199 :11 Blood Glucose , Office (95970) Blood Glucose , Office 116 (Normal) :11 HgA1C , Office (86136) HgA1C , Office 8.8 % (Abnormal) Range: 4.6 - 7.1 :17 Hemoglobin Glyclated (HGB A1C) Comments: PATIENT NOT FASTINGPERFORMED BY: LabVibra [facility]6370 [facility] [id number] (43093) Hemoglobin A1c 8.9 % (Abnormal) Range: 4.8-5.6 Comments: . Pre-diabetes: 5.7 - 6.4 Diabetes: >6.4 Glycemic control for adults with diabetes: <7.0 :17 TSH (32888) Comments: PATIENT NOT FASTINGPERFORMED BY: [facility]CoR[facility], Old BridgeEgoejo1400 [facility] [id number] TSH 2.960 {uIU/mL} (Normal) Range: 0.450-4.500 :17 METABOLIC PANEL, COMPREHENSIVE Comments: PATIENT NOT FASTINGPERFORMED BY: LabCoMartin [place]ille 2975470 [facility] [id number] (80331) ALT (SGPT) 25 [iU]/L (Normal) Range: 0-44 [...] Glucose, Serum 113 mg/dL (Abnormal) Range: 65-99 90-Hqk-36052:17 CBC W/AUTO DIFF WBC Comments: PATIENT NOT FASTINGPERFORMED BY: [facility]CoR[facility], Old BridgeOvwrxp3328 [facility] [id number] Information: [id number] (34170) Immature Grans (Abs) OTHER {x10E3/uL} (Normal) Range: [...] {x10E3/uL} (Normal) Range: 3.4-10.8 :17 LIPID PANEL (61854) Comments: PATIENT NOT FASTINGPERFORMED BY: [employer] [facility] [id number] LDL/HDL Ratio 3.0 {ratio_units} (Normal) Range: 0.0-3.6 [...] 187 mg/dL (Normal) Range: 100-199 :17 CALCIFIDIOL (51995) VIT D 25 Comments: PATIENT NOT FASTINGPERFORMED BY: LabCo Htwdtl[address] [facility] [id number] Vitamin D, 25-Hydroxy 56.3 ng/mL (Normal) Range: 30.0-100.0 Comments: Vitamin D deficiency has been defined by the [place] ofMedicine and an Endocrine Society practice guideline as alevel of serum 25-OH vitamin D less than 20 ng/mL (1,2).The Endocrine Society went on to further define vitamin Dinsufficiency as a level between 21 and 29 ng/mL (2).1. IOM (Gallup of Medicine). 2010. Dietary reference intakes for calcium and D. [place]: The National Academies Press.2. Sandy MF, Braulio DALTON, Darren STILL, et al. Evaluation, treatment, and prevention of vitamin D deficiency: an Endocrine Society clinical practice guideline. JCEM. 2010; 96(7):1911-30. :05 Blood Glucose , Office (53986) Blood Glucose , Office 114 (Normal) :02 HgA1C , Office (80768) HgA1C , Office 8.4 % (Abnormal) Range: 4.6 - 7.1 :02 Blood Glucose , Office (11476) Blood Glucose , Office 241 (Normal) Comments: not fasting :58 HgA1C , Office (90381) HgA1C , Office 7.9 % (Abnormal) Range: 4.6 - 7.1 :58 Blood Glucose , Office (32172) Blood Glucose , Office 135 (Normal) :40 Prostate-Specific Ag, Serum Comments: PATIENT NOT FASTINGPERFORMED BY: [employer]70 Double RoboticsAtrium Health [facility]son [id number] Information: [id number] ORDER Prostate Specific Ag, 0.1 ng/mL (Normal) Range: 0.0-4.0 Serum Comments: Son[employer]ation ECLIA methodology. .According to the [place] [employer], Serum PSA shoulddecrease and remain [...] With Differential/Platelet Comments: PATIENT WAS FASTINGPERFORMED BY: [employer]6370 Double RoboticsAtrium Health [facility] [id number] Information: [id number] Immature Grans (Abs) 0.0 {x10E3/uL} (Normal) Range: [...] 4.14-5.80 WBC 7.4 {x10E3/uL} (Normal) Range: 3.4-10.8 16-Iop-33811:23 Comp. Metabolic Panel (14) Comments: PATIENT WAS FASTINGPERFORMED BY: LabCoR[facility], Old BridgePauvag0817 [facility] [id number] ALT (SGPT) 16 [iU]/L (Normal) Range: 0-44 [...] % (Abnormal) Comments: PATIENT WAS FASTINGPERFORMED BY: [employer]70 [facility] [id number] :23 Range: 4.8-5.6 Comments: . Increased risk for diabetes: 5.7 - 6.4 Diabetes: >6.4 Glycemic control for adults with diabetes: <7.0 :23 Lipid Panel With LDL/HDL Comments: PATIENT WAS FASTINGPERFORMED BY: [employer]70 [facility] [id number] Ratio LDL/HDL Ratio 2.2 {ratio_units} (Normal) Range: [...] Randm Ur Comments: PATIENT WAS FASTINGPERFORMED BY: PolyInnovationsRaritan Bay Medical Center, Old BridgeJurwps5126 [facility] [id number] Microalb/Creat Ratio 78.4 {mg/g_creat} (Abnormal) Range: 0.0-30.0 Microalbumin, Urine 66.5 ug/mL (Abnormal) Range: 0.0-17.0 Creatinine, Urine 84.8 mg/dL (Normal) Range: 22.0-328.0 :23 Microscopic Examination Comments: PATIENT WAS FASTINGPERFORMED BY: PolyInnovationsRaritan Bay Medical Center, Old BridgeIqjbqt4638 [facility] [id number] Bacteria Few (Normal) Mucus Threads Present (Normal) Epithelial Cells (non 0-10 {/hpf} Range: 0 - 10 renal) (Normal) RBC 0-2 {/hpf} (Normal) Range: 0 - 2 WBC 6-10 {/hpf} Range: 0 - 5 (Abnormal) TSH 1.390 {uIU/mL} Comments: PATIENT WAS FASTINGPERFORMED BY: PrognosDx [facility]6370 [facility] [id number] :23 (Normal) Range: 0.450-4.500 :23 Urinalysis, Complete Comments: PATIENT WAS FASTINGPERFORMED BY: PrognosDx HealthV[facility]6370 [facility] [id number] Microscopic Examination See below: (Normal) Comments: Microscopic was indicated and was performed. Nitrite, Urine Positive (Abnormal) Urobilinogen,Semi-Qn 1.0 mg/dL (Normal) Range: 0.0-1.9 Bilirubin Negative (Normal) Occult Blood Negative (Normal) Ketones Negative (Normal) Glucose Negative (Normal) Protein Trace (Normal) WBC Esterase Negative (Normal) Appearance Clear (Normal) Urine-Color Yellow (Normal) pH 7.0 (Normal) Range: 5.0-7.5 Specific [place] 1.017 (Normal) Range: 1.005-1.030 Vitamin D, 25-Hydroxy 65.7 ng/mL (Normal) Comments: PATIENT WAS FASTINGPERFORMED BY: BEATA Joseph[address] [facility] [id number] :23 Range: 30.0-100.0 Comments: Vitamin D deficiency has been defined by the [place] ofMedicine and an Endocrine Society practice guideline as alevel of serum 25-OH vitamin D less than 20 ng/mL (1,2).The Endocrine Society went on to further define vitamin Dinsufficiency as a level between 21 and 29 ng/mL (2).1. IOM (Gallup of Medicine). 2010. Dietary reference intakes for calcium and D. [place]: The National AcademNewsHunt Press.2. Braulio Evans, Darren STILL, et al. Evaluation, treatment, and prevention of vitamin D deficiency: an Endocrine Society clinical practice guideline. JCEM. 2010; 96(7):191-. :56 CALCIFIDIOL (11499) VIT D 25 Comments: do in june 2014; PATIENT NOT FASTINGPERFORMED BY: [employer] Vawdvv2028 [facility] [id number] Vitamin D, 25-Hydroxy 23.2 ng/mL (Abnormal) Range: 30.0-100.0 Comments: Vitamin D deficiency has been defined by the [place] ofMedicine and an Endocrine Society practice guideline as alevel of serum 25-OH vitamin D less than 20 ng/mL (1,2).The Endocrine Society went on to further define vitamin Dinsufficiency as a level between 21 and 29 ng/mL (2).1. IOM (Gall[place] of Medicine). 2010. Dietary reference intakes for calcium and D. [place]: The National Academies Press.2. Braulio Evans, Darren STILL, et al. Evaluation, treatment, and prevention of vitamin D deficiency: an Endocrine Society clinical practice guideline. JCEM. 2010; 96(7):1911-. :56 T4, FREE (THYROXINE) Comments: PATIENT NOT FASTINGPERFORMED BY: [facility]6370 [facility] [id number] Information: [id number] (56660) T4,Free(Direct) 1.07 ng/dL (Normal) Range: 0.82-1.77 :56 T3, FREE (TRIDOTHYRONINE) (28158) Comments: PATIENT NOT FASTINGPERFORMED BY: [facility]6370 [facility] [id number] Triiodothyronine,Free,Serum 2.8 pg/mL (Normal) Range: 2.0-4.4 :56 TSH (99903) Comments: PATIENT NOT FASTINGPERFORMED BY: [facility]6370 [facility] [id number] TSH 1.790 {uIU/mL} (Normal) Range: 0.450-4.500 :57 HgA1C , Office (74621) HgA1C , Office 7.0 % (Normal) Range: 4.6 - 7.1 :57 Blood Glucose , Office (83881) Blood Glucose , Office 146 (Normal) :24 Microscopic Examination Comments: PATIENT NOT FASTINGPERFORMED BY: [facility]6370 [facility] [id number] Bacteria Few (Normal) Mucus Threads Present (Normal) Epithelial Cells (non renal) 0-10 {/hpf} (Normal) Range: 0 - 10 RBC 0-2 {/hpf} (Normal) Range: 0 - 2 WBC 0-5 {/hpf} (Normal) Range: 0 - 5 :24 Vitamin D Hydroxy (24206) Comments: PATIENT NOT FASTINGPERFORMED BY: LabVibra [facility]6370 [facility] [id number] Vitamin D, 25-Hydroxy 22.8 ng/mL (Abnormal) Range: 30.0-100.0 Comments: Vitamin D deficiency has been defined by the [place] ofMedicine and an Endocrine Society practice guideline as alevel of serum 25-OH vitamin D less than 20 ng/mL (1,2).The Endocrine Society went on to further define vitamin Dinsufficiency as a level between 21 and 29 ng/mL (2).1. IOM (Gall[place] of Medicine). 2010. Dietary reference intakes for calcium and D. [place]: The National Academies Press.2. Sandy MF, Braulio DALTON, Darren STILL, et al. Evaluation, treatment, and prevention of vitamin D deficiency: an Endocrine Society clinical practice guideline. JCEM. 2010; 96(7):1911-30. :24 TSH (15358) Comments: PATIENT NOT FASTINGPERFORMED BY: [employer]6370 Double RoboticsAt[facility] [id number] TSH 0.812 {uIU/mL} (Normal) Range: 0.450-4.500 :24 URINALYSIS, W/ MICRO (44949) Comments: PATIENT NOT FASTINGPERFORMED BY: [employer]6370 Double RoboticsAt[facility] Health [facility] [id number] Microscopic Examination See below: (Normal) Comments: Microscopic was indicated and was performed. Microscopic Examination MICRON (Normal) Comments: Microscopic follows if indicated. Nitrite, Urine Negative (Normal) Urobilinogen,Semi-Qn 0.2 mg/dL (Normal) Range: 0.0-1.9 Bilirubin Negative (Normal) Occult Blood Negative (Normal) Ketones Negative (Normal) Glucose Negative (Normal) Protein Negative (Normal) WBC Esterase Negative (Normal) Appearance Clear (Normal) Urine-Color Yellow (Normal) pH 6.5 (Normal) Range: 5.0-7.5 Specific [place] 1.020 (Normal) Range: 1.005-1.030 :24 MICROALBUMIN: CREATININE RATIO Comments: PATIENT NOT FASTINGPERFORMED BY: [employer]6370 Double RoboticsAt[facility] Health [facility] [id number] (94975) AND (91990) Microalb/Creat Ratio 40.9 {mg/g_creat} (Abnormal) Range: 0.0-30.0 Microalbumin, Urine 42.8 ug/mL (Abnormal) Range: 0.0-17.0 Creatinine, Urine 104.7 mg/dL (Normal) Range: 22.0-328.0 :24 METABOLIC PANEL, COMPREHENSIVE Comments: PATIENT NOT FASTINGPERFORMED BY: PolyInnovationsRaritan [facility], Old BridgeHkxrwq2158 [facility] [id number] (68851) ALT (SGPT) 19 [iU]/L (Normal) Range: 0-44 [...] mg/dL (Abnormal) Range: 65-99 :24 LIPID PANEL (57857) Comments: PATIENT NOT FASTINGPERFORMED BY: PolyInnovationsRaritan Bay [facility] Center, Old BridgeErigkk5461 [facility] [id number] LDL/HDL Ratio 1.9 {ratio_units} (Normal) Range: 0.0-3.6 [...] Cholesterol, Total 168 mg/dL (Normal) Range: 100-199 95-Stk-64872:24 CBC W/AUTO DIFF WBC Comments: PATIENT NOT FASTINGPERFORMED BY: [facility] Ynneek7524 [facility] [id number] Information: [id number] (43291) Immature Grans (Abs) 0.0 {x10E3/uL} (Normal) Range: [...] 3.4-10.8 :54 FECAL OCCULT- Tubes sent home (51371) FECAL OCCULT HGB ASSAY, QUAL, 1-3 SIMULTANEOU negative (Normal) :04 Microscopic Examination Comments: PATIENT WAS FASTINGPERFORMED BY: [employer] [facility] [id number] Yeast Present (Abnormal) Bacteria Few (Normal) Mucus Threads Present (Normal) Epithelial Cells (non renal) None seen {/hpf} (Normal) Range: 0 - 10 RBC 0-3 {/hpf} (Normal) Range: 0 - 3 WBC 0-5 {/hpf} (Normal) Range: 0 - 5 :52 TSH (09051) Comments: PATIENT WAS FASTINGPERFORMED BY: [employer] [facility] [id number] TSH 3.370 {uIU/mL} (Normal) Range: 0.450-4.500 :52 URINALYSIS, W/ MICRO (54277) Comments: PATIENT WAS FASTINGPERFORMED BY: [employer] [facility] [id number] Microscopic Examination See below: (Normal) Nitrite, Urine Negative (Normal) Urobilinogen,Semi-Qn 0.2 mg/dL (Normal) Range: 0.0-1.9 Bilirubin Negative (Normal) Occult Blood Negative (Normal) Ketones Negative (Normal) Glucose Negative (Normal) Protein 1+ (Abnormal) WBC Esterase Negative (Normal) Appearance Clear (Normal) Urine-Color Yellow (Normal) pH 6.0 (Normal) Range: 5.0-7.5 Specific [place] 1.027 (Normal) Range: 1.005-1.030 :52 MICROALBUMIN: CREATININE RATIO Comments: PATIENT WAS FASTINGPERFORMED BY: [employer] Lmxwfv2749 [facility] [id number] (81711) AND (74548) Creatinine, Urine 179.7 mg/dL (Normal) Range: 22.0-328.0 Microalb/Creat Ratio 71.7 {mg/g_creat} (Abnormal) Range: 0.0-30.0 Microalbumin, Urine 128.8 ug/mL (Abnormal) Range: 0.0-17.0 :52 METABOLIC PANEL, COMPREHENSIVE Comments: PATIENT WAS FASTINGPERFORMED BY: [employer]70 [facility] [id number] (78167) ALT (SGPT) 24 [iU]/L (Normal) Range: 0-44 [...] mg/dL (Abnormal) Range: 65-99 :52 LIPID PANEL (96797) Comments: PATIENT WAS FASTINGPERFORMED BY: [employer]6370 [facility] [id number] LDL/HDL Ratio 1.9 {ratio_units} (Normal) Range: 0.0-3.6 [...] MANUAL DIFF Comments: PATIENT WAS FASTINGPERFORMED BY: LabCoR[facility], Old BridgeUleowl3345 [facility] [id number] Information: [id number] (12600) Immature Grans (Abs) 0.0 {x10E3/uL} (Normal) Range: [...] Range: 3.4-10.8 :00 Blood Glucose , Office (29765) Blood Glucose , Office 129 (Normal) Comments: [id number] at home this am :00 HgA1C , Office (19022) HgA1C , Office 7.1 % (Normal) Range: 4.6 - 7.1 :06 Blood Glucose , Office (86678) Blood Glucose , Office 125 (Normal) :06 HgA1C , Office (61788) HgA1C , Office 6.5 % (Normal) Range: 4.6 - 7.1 :23 Microscopic Examination Comments: PATIENT WAS FASTINGPERFORMED BY: [employer]70 [facility] [id number] Bacteria None seen (Normal) Mucus Threads Present (Normal) Epithelial Cells (non renal) 0-10 {/hpf} (Normal) Range: 0 - 10 RBC 0-3 {/hpf} (Normal) Range: 0 - 3 WBC 0-5 {/hpf} (Normal) Range: 0 - 5 :23 LIPID PANEL (97121) Comments: PATIENT WAS FASTINGPERFORMED BY: [employer]70 [facility] [id number] LDL/HDL Ratio 1.9 {ratio_units} (Normal) Range: 0.0-3.6 LDL Cholesterol Calc 80 mg/dL (Normal) Range: 0-99 VLDL Cholesterol M[place]he 26 mg/dL (Normal) Range: 5-40 HDL Cholesterol 43 mg/dL (Normal) Comments: According to ATP-III Guidelines, HDL-C >59 mg/dL is considered anegative risk factor for CHD. Triglycerides 128 mg/dL (Normal) Range: 0-149 Cholesterol, Total 149 mg/dL (Normal) Range: 100-199 :23 TSH (79013) Comments: PATIENT WAS FASTINGPERFORMED BY: [employer] Nhdece2064 [facility] [id number] TSH 1.190 {uIU/mL} (Normal) Range: 0.450-4.500 :23 URINALYSIS, W/ MICRO (58985) Comments: PATIENT WAS FASTINGPERFORMED BY: [facility]6370 [facility] [id number] Microscopic Examination See below: (Normal) Microscopic Examination MICRON (Normal) Comments: Microscopic follows if indicated. Nitrite, Urine Negative (Normal) Urobilinogen,Semi-Qn 0.2 mg/dL (Normal) Range: 0.0-1.9 Bilirubin Negative (Normal) Occult Blood Negative (Normal) Ketones Trace (Abnormal) Glucose Negative (Normal) Protein Negative (Normal) WBC Esterase Negative (Normal) Appearance Clear (Normal) Urine-Color Yellow (Normal) pH 5.5 (Normal) Range: 5.0-7.5 Specific [place] 1.017 (Normal) Range: 1.005-1.030 :23 MICROALBUMIN: CREATININE RATIO Comments: PATIENT WAS FASTINGPERFORMED BY: PolyInnovationsRaritan Bay Medical Center, Old BridgeSrheup5037 [facility] [id number] (21227) AND (40230) Microalb/Creat Ratio 20.4 {mg/g_creat} (Normal) Range: 0.0-30.0 Microalbumin, Urine 18.6 ug/mL (Abnormal) Range: 0.0-17.0 Creatinine, Urine 91.2 mg/dL (Normal) Range: 22.0-328.0 05-Jdg-576548:23 METABOLIC PANEL, COMPREHENSIVE Comments: PATIENT WAS FASTINGPERFORMED BY: PolyInnovationsRaritan Bay [facility], Old BridgeHztnya2542 [facility] [id number] (21685) ALT (SGPT) 26 [iU]/L (Normal) Range: 0-44 [...] Glucose, Serum 99 mg/dL (Normal) Range: 65-99 27-Ctq-882855:23 CBC WITH MANUAL DIFF Comments: PATIENT WAS FASTINGPERFORMED BY: [facility] Qqqcis4119 [facility] [id number] Information: [id number] (75582) Immature Grans (Abs) 0.0 {x10E3/uL} (Normal) Range: [...] 4.14-5.80 WBC 7.8 {x10E3/uL} (Normal) Range: 3.4-10.8 57-Ghu-268041:57 FECAL OCCULT- Tubes sent home (23125) FECAL OCCULT HGB ASSAY, QUAL, 1-3 SIMULTANEOU negative (Normal) :37 HgA1C , Office (19353) HgA1C , Office 6.5 % (Normal) Range: 4.6 - 7.1 :37 Blood Glucose , Office (21968) Blood Glucose , Office 103 (Normal) :24 Microscopic Examination Comments: PATIENT WAS FASTINGPERFORMED BY: [employer] [facility] [id number] Bacteria Few (Normal) Mucus Threads Present (Normal) Epithelial Cells (non renal) 0-10 {/hpf} (Normal) Range: 0 - 10 RBC 4-10 {/hpf} (Abnormal) Range: 0 - 3 WBC 11-30 {/hpf} (Abnormal) Range: 0 - 5 :24 TSH (30590) Comments: PATIENT WAS FASTINGPERFORMED BY: [employer]70 Double RoboticsAt[facility] Health [facility] [id number] TSH 2.300 {uIU/mL} (Normal) Range: 0.450-4.500 :24 URINALYSIS, W/ MICRO (86915) Comments: PATIENT WAS FASTINGPERFORMED BY: [employer] AGUnc Health Appalachianin [place] [id number] Microscopic Examination See below: (Normal) Nitrite, Urine Positive (Abnormal) Urobilinogen,Semi-Qn 0.2 mg/dL (Normal) Range: 0.0-1.9 Bilirubin Negative (Normal) Occult Blood 1+ (Abnormal) Ketones Trace (Abnormal) Glucose Negative (Normal) Protein Trace (Normal) WBC Esterase 2+ (Abnormal) Appearance Clear (Normal) Urine-Color Yellow (Normal) pH 5.5 (Normal) Range: 5.0-7.5 Specific [place] 1.026 (Normal) Range: 1.005-1.030 31-Aug-20129:24 METABOLIC PANEL, COMPREHENSIVE Comments: PATIENT WAS FASTINGPERFORMED BY: LabCoR[facility], Old BridgeAwpusk1601 [facility] [id number] (54117) ALT (SGPT) 31 [iU]/L (Normal) Range: 0-44 [...] MANUAL DIFF Comments: PATIENT WAS FASTINGPERFORMED BY: LabCoR[facility], Old BridgeIdnnqp0168 [facility] [id number] Information: [id number] (12145) Immature Grans (Abs) 0.0 {x10E3/uL} (Normal) Range: [...] CREATININE RATIO Comments: PATIENT WAS FASTINGPERFORMED BY: LabCoR[facility], Old BridgeNkyiox1911 [facility] [id number] (06648) AND (77023) Microalb/Creat Ratio 41.7 {mg/g_creat} (Abnormal) Range: 0.0-30.0 Microalbumin, Urine 73.8 ug/mL (Abnormal) Range: 0.0-17.0 Creatinine, Urine 176.9 mg/dL (Normal) Range: 22.0-328.0 :24 LIPID PANEL (11030) Comments: PATIENT WAS FASTINGPERFORMED BY: [facility], Old BridgeIoncht2843 [facility] [id number] LDL/HDL Ratio 2.2 {ratio_units} (Normal) Range: 0.0-3.6 LDL Cholesterol Calc 83 mg/dL (Normal) Range: 0-99 VLDL Cholesterol Meche 27 mg/dL (Normal) Range: 5-40 Cholesterol, Total 147 mg/dL (Normal) Range: 100-199 HDL Cholesterol 37 mg/dL (Abnormal) Comments: According to ATP-III Guidelines, HDL-C >59 mg/dL is considered anegative risk factor for CHD. Triglycerides 136 mg/dL (Normal) Range: 0-149 :06 HgA1C , Office (36890) HgA1C , Office 6.6 % (Normal) Range: 4.6 - 7.1 :06 Blood Glucose , Office (15502) Blood Glucose , Office 98 (Normal) :59 Blood Glucose , Office (06796) Blood Glucose , Office 235 (Normal) 5-Bbw-082387:04 TSH (41691) Comments: PATIENT WAS FASTINGPERFORMED BY: [facility], Old BridgeXnwcjx2768 [facility] [id number] TSH 1.710 {uIU/mL} (Normal) Range: 0.450-4.500 :04 METABOLIC PANEL, COMPREHENSIVE Comments: PATIENT WAS FASTINGPERFORMED BY: [facility], Old BridgeHvchqm4861 [facility] [id number] (44321) ALT (SGPT) 30 [iU]/L (Normal) Range: 0-44 [...] mg/dL (Abnormal) Range: 65-99 :04 LIPID PANEL (26014) Comments: PATIENT WAS FASTINGPERFORMED BY: [facility], [place] BridgeApqpjb7119 [facility] [id number] LDL/HDL Ratio 2.3 {ratio_units} (Normal) Range: 0.0-3.6 [...] DIFF Comments: PATIENT WAS FASTINGPERFORMED BY: BEATA [facility]6370 [facility] [id number] Information: [id number] (22529) Immature Grans (Abs) 0.0 {x10E3/uL} (Normal) Range: [...] (Normal) Range: 4.0-10.5 :59 HgA1C , Office (70879) HgA1C , Office 7.2 % (Abnormal) Range: 4.6 - 7.1 :02 HgA1C , Office (07759) HgA1C , Office 8.3 % (Abnormal) Range: 4.6 - 7.1 :02 Blood Glucose , Office (93771) Blood Glucose , Office 162 (Normal) :50 Microscopic Examination Comments: PATIENT NOT FASTINGPERFORMED BY: PrognosDx [facility] [place]6370 [facility] [id number] Bacteria Few (Normal) Mucus Threads Present (Normal) Epithelial Cells (non renal) None seen {/hpf} (Normal) Range: 0 - 10 RBC 0-3 {/hpf} (Normal) Range: 0 - 3 WBC 6-10 {/hpf} (Abnormal) Range: 0 - 5 :11 HgA1C , Office (93574) HgA1C , Office 6.9 % (Normal) Range: 4.6 - 7.1 :11 Blood Glucose , Office (05991) Blood Glucose , Office 115 (Normal) :50 MICROALBUMIN: CREATININE RATIO Comments: PATIENT NOT FASTINGPERFORMED BY: [facility]6370 [facility] [id number] (94854) AND (72839) Microalb/Creat Ratio 20.0 {mg/g_creat} (Normal) Range: 0.0-30.0 Creatinine, Urine 97.5 mg/dL (Normal) Range: 22.0-328.0 Microalbumin, Urine 19.5 ug/mL (Abnormal) Range: 0.0-17.0 :50 URINALYSIS, W/ MICRO Comments: PATIENT NOT FASTINGPERFORMED BY: [facility]6370 [facility] [id number] Information: [id number] (77375) Microscopic Examination See below: (Normal) Microscopic Examination MICRON (Normal) Comments: Microscopic follows if indicated. Nitrite, Urine Negative (Normal) Urobilinogen,Semi-Qn 0.2 mg/dL (Normal) Range: 0.0-1.9 Bilirubin Negative (Normal) Occult Blood Negative (Normal) Ketones Negative (Normal) Glucose Negative (Normal) Protein Negative (Normal) WBC Esterase Negative (Normal) Appearance Clear (Normal)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 ([id number])By: On: 03-Aug-2010 Intent Kelly Vargas DO, DO, Comments: Lot #[id number]-1/24/13Site-left deltoidgiven by:YOLANDA Mendoza EKG ([id number])By: Kelly Vargas DO On: 13-Feb-2009 Intent Kelly Vargas DO Comments: nsr no acute changes Toradol Injection, 30 mg On: 26-Jun-2007 Intent ([id number])By: Kelly Vargas DO Comments: Lot #[id number]-right [id number] by Kelly Rodgers LPN, DO CT - [...] Advance Directives Name Dates Details Immunization Registry [place] - Effective on 03/02/2017. 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 The patient does not have durable power of associate attorney or living will. Other providers contributing [...] patient does not have durable power of associate attorney or living will. The patient has [...] intake is no fast food, no fried patriico End: 25-Sep-2015 9:53 d, no regular soda [...] patient does not have durable power of associate attorney or living will. The patient has [...] patient does not have durable power of associate attorney or living will. The patient has [...]
--- OUTSIDE RECORDS SUMMARY | 2018-07-17 07:40 | XMS RPT_ITS | Continuity of Care Document ---
:1945 Author Organization [facility] Address [facility] [facility] [address] [place] [address] Phone Care Team Providers Name Role Phone Kelly Vargas DO Unavailable Mamie Clau Unavailable [facility], Wound Unavailable Donaldo Burnham MD Unavailable [facility], [facility] Unavailable Luis, SCHUYLER Robb Unavailable Unavailable Long [...] PRYORSharon E Start : 15-Apr-2017 Active Pen Thurston /16 31G X 5 MM Miscellaneous 1 (one) Misc Misc 4times daily for 0 days Quantity: 2 {Box} Refills: 3 Ordered:19-Dec-2015 Shamar Vargas DO, DO, Kathleen Start : 19-Dec-2015 Active Primidone 50 MG Oral Tablet 2 (two) Tablet tid for 0 days Quantity: 270 {Tablet} Refills: 0 Ordered:30-Jan-2018 Shamar Vargas DO, DO, Kathleen Start : 30-Jan-2018 Active Simvastatin 80 MG Oral Tablet 1 Tablet qd for 0 days Quantity: 90 {Tablet} Refills: 3 Ordered:02-Jun-2017 Shamar Vargas DO, DO, Kathleen Start : 02-Jun-2017 Active Comments:new dose VIAGRA, 100MG (Oral Tablet) [...] 09-Jan-2018 Inactive Comments:new dose-- bc od hood kate hollinsn had samples of others LEVAQUIN, 500MG (Oral [...] End : 09-Jan-2018 Inactive Comments:changed by jahaira 03/29/16chg [facility] Phentermine HCl 37.5 MG Oral Tablet [...] 10-Apr-2015 End : 10-Apr-2015 Inactive Comments:DX: 250.02NPI: [id number] TRAMADOL HCL, 50MG (Oral Tablet) 1 q [...] days Quantity: 4 Kit Refills: 4 Ordered:26-Dec-2014 Shamar Vargas DO, DO, Kathleen Start : 26-Dec-2014 End [...] AND Physical Result: Comments: See Note; NOTES: [facility] [address] [place] [address] Wound Ctr History AND Physical 11/16/16 4606 MR#: [id number] Acct: [id number] Name: PERRY ROCA Rep #: [id number] : 1945 71 From: Juan J Edwards [...] Date Recorded By Document 11/16/16 16:26 DL [id number] 11/16/16 16:29 DL 11/16/16 16:26 Wound Center Nurse 1 [Ulcer Assessment] #1 right thigh ucler -Current Size (cm) - Length 0 -Current Size (cm) - Width 0 -Current Size (cm) - Depth 0 -Total Squa re Cm 0 -Photo Taken Yes -Epithelialization Large 67-100% -Exudate Amt None Present (0 %) -Granulation Amt Large (67-100%) -Granulation Quality [place] -Necrosis Amt None Present (0 %) -Structure Exposed N /A -Texture (Donna-wound Skin Appearance) Scarring -Moisture (Donna-wound Skin Appearance No Abnormality ) -Color (Dnona-wound Skin Appearance) No Abnormality - Temperature (Donna-wound [...] AND Physical Result: Comments: See Note; NOTES: [facility] [address] [place] [address] Wound Ctr History AND Physical 11/02/16 0907 MR#: [id number] Acct: [id number] Name: PERRY ROCA Rep #: [id number] : 1945 71 From: Juan J Edwards [...] Date Recorded By Document 11/02/16 08:41 MW [id number] 11/02/16 08:47 MW 11/02/16 08: 41 Wound [...] Date Recorded By Document 11/02/16 08:55 DV [id number] 11/02/16 09:00 DV 11/02/16 08:55 Wound Center Nurse 2 [Procedure/Treatment] #1 right thigh ucler -Time 08:57 -Correct Patient Yes - Correct Side, Site, Position Yes -Correct Pro cedure Yes -Procedure Performed Yes -Wound/Ulcer Outcome Not Healed -Ulcer Cleansing Rinsed/ Irrigated with Saline -Foul Odor after Cleansing No -Bioengineered Tissue No -Cetacaine [place] No -Bleeding C ontrolled with Pressure -Treatment [...] Date Recorded By Document 11/02/16 08:55 DV [id number] 11/02/16 09:00 DV 11/02/16 08:55 Wound Center [...] AND Physical Result: Comments: See Note; NOTES: [facility] [address] [place] [address] Wound Ctr History AND Physical 10/12/16 0944 MR#: [id number] Acct: [id number] Name: PERRY ROCA Rep #: [id number] : 1945 71 From: Paul Gibson MD [...] Recorded By Document 0 10/12/16 08:47 TM [id number] 10/12/16 09:01 10/12/16 08:47 Wound Center Nurse [...] Date Re corded By Document 10/12/16 09:18 [id number] 10/12/16 09:19 10/12/16 09:18 Wound Center Nurse [...] Saline -Foul Odor after Cleansing No -Cetacaine [place] No -Bleeding Controlled with Pressure -Treatment Response [...] Date Recorded By Document 10/12/16 09:18 DANA [id number] 10/12/16 09:19 DANA 10/12/16 09:18 Wound Center [facility] se 2 #1 right thigh ucler -Time [...] Saline -Foul Odor after Cleansing No -Cetacaine [place] No -Bleeding Controlled with Pressure -Treatment Response [...] - PT Result: Comments: See Note; NOTES: [facility] Physical Therapy [facility] [address] [place] [address] Fax REHABILITATION SERVICES INITIAL EVALUATION MR#: [id number] Acct: [id number] Name: PERRY CLARK Rep #: [id number] : 1945 71 From: Jono Fowler PT, ATC Referring Dr.: Kelly Vargas DO Status: REG [facility] Insurance: [facility] Patient's Visit Information PERRY CLARK is [...] shoulder pain. 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 Please let me know if there are questions or concerns regarding this plan of care. Physician Signature: Date: <Electronically signed by Jono Fowler PT, ATC> 05/03/16 1103 CC: Kelly Vargas DO [facility] Signed For Medicare only , by signing this I certify the plan of care. Physicians Signature Date 29-Apr-2016 Shoulder min 2 Views Result: Comments: See Note; NOTES: [facility] Imaging Services [address] [place] [address] Verdana 4d Shoulder min 2 Views MR#: [id number] Acct: [id number] Name: PERRY CLARK #: [id number] : 1945 M 71 From: Jared Lyman DO PCP: Kelly Vargas DO Status: REG CLI Study: Shoulder min 2 Views Date of Exam: 04/29/16 Exam# [id number] Ordering Dr: Kelly Vargas DO UDY: X-RAY [...] Jared Lyman DO at 12:18 EST Tel [phone], Service support [phone], CC: Kelly Vargas DO Ecotherapist: Signed 04-Jul-2015 ELECTROCARDIOGRAM, COMPLETE (ECG) (15686) Comments: nsr no acute chg - ekg- scanned into chart Result: [MEASUREMENTS ANALYSIS] Date of Test: 07/04/2015 08:14:52; Heart Rate: 77; OR Interval: 194; QRS: 84; QT Interval: 346; Corrected QT Interval (QTc): 375; P Wave Mckean: 42; QRS Wave Mckean: -15; T Wave Mckean : 51; Blood Pressure: 128/82 [ECG DIAGNOSTIC STATEMENTS] Date of Test: 07/04/2015 08:14:52; Summary: 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 ABNORMAL 06-Feb-2015 Emergency Department Summary Result: Comments: See Note; NOTES: [facility] Medical Records Department [address] [place] [address] Emergency Department Summary MR#: [id number] Acct: [id number] Name: PERRY CLARK Rep #: [id number] : 1945 69 From: Ralph Jimenez MD [...] arrival. He cut his finger with a pulp grinder feeder. He is right handed. Tetanus is unknown. [...] C: Kelly Arriaga DO T: NTS JOB: [id number] 02/06/15 0829 <Electronically signed by Ralph Jimenez MD> Date Ralph Jimenez MD Cosigner Signature (If Indicated): Date CC: Kelly Vargas DO; Ralph Chang DO Date Dictat ed: 02/03/151523 Date Transcribed: 02/03/151523 Ecotherapist: Signed 03-Feb-2015 Discharge Instruction Result: Comments: See Note; NOTES: [facility] Medical Records Department [address] [place] [address] Discharge Instruction 02/03/151519 MR#: [id number] Acct: [id number] Name: PERRY CLARK Rep #: [id number] : 1945 69 From: Ralph Jimenez MD PCP: Kelly Vargas DO Status: REG ER ED Disposition - Plan for ED Patient: Disposition: Home or Assisted [facility] Chief Complaint: Laceration Instructions: ED EXTREMITY LACERATION, [...] problems, contact your doctor. Call [facility] ([phone]) or report to the closest Emergency Room. Call 911 if necessary. 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 Status: Active No Drug Use Status: Active [...] kg/m2 Body Surface Area Calculated 2.03 m2 :46 Pulse 81 /min Comments: Pattern: Regular Respiration [...] Large Weight 218.375 lb :19 Comments: hearing [facility] and had glaucoma test done [...] Calculated 2.17 m2 Head Circumference 0.00 cm 32-Ips-632065:57 Pulse 64 /min Comments: Pattern: Regular Respiration [...] 0.00 cm Results Date Description Value Details 37-Uva-733560:07 Microscopic Examination Comments: PATIENT NOT FASTINGPERFORMED BY: [employer] [id number] Bacteria None seen (Normal) Mucus Threads Present (Normal) Crystal Type Calcium Oxalate (Normal) Crystals Present (Abnormal) Cast Type Hyaline casts (Normal) Casts Present {/lpf} (Abnormal) Epithelial Cells (non renal) None seen {/hpf} (Normal) Range: 0 - 10 RBC 0-2 {/hpf} (Normal) Range: 0 - 2 WBC 0-5 {/hpf} (Normal) Range: 0 - 5 41-Etb-866127:07 URINALYSIS, W/ MICRO (97305) Comments: PATIENT NOT FASTINGPERFORMED BY: [employer] [id number] Microscopic Examination See below: (Normal) Comments: Microscopic was indicated and was performed. Nitrite, Urine Negative (Normal) Urobilinogen,Semi-Qn 0.2 mg/dL (Normal) Range: 0.2-1.0 Bilirubin Negative (Normal) Occult Blood Negative (Normal) Ketones 1+ (Abnormal) Glucose Trace (Abnormal) Protein 1+ (Abnormal) WBC Esterase Negative (Normal) Appearance Clear (Normal) Urine-Color Yellow (Normal) pH 5.0 (Normal) Range: 5.0-7.5 Specific [place] 1.029 (Normal) Range: 1.005-1.030 74-Lth-290121:07 MICROALBUMIN: CREATININE RATIO Comments: PATIENT NOT FASTINGPERFORMED BY: [place] [facility] [id number] (34649) AND (81528) Alb/Creat Ratio 47.7 {mg/g_creat} (Abnormal) Range: 0.0-30.0 Albumin, Urine 99.5 ug/mL (Normal) Creatinine, Urine 208.5 mg/dL (Normal) :57 HgA1C , Office (84240) HgA1C , Office 7.9 % (Abnormal) Range: 4.6 - 7.1 :57 Blood Glucose , Office (94887) Blood Glucose , Office 204 (Normal) 27-Sep-20171:31 Anaerobic & Aerobic Comments: right lower extremity; PATIENT NOT FASTINGPERFORMED BY: [place] [facility] [id number] Information: RIGHT LEG SRC:RL Culture (37350) Result 1 NG36 (Normal) Comments: No growth in 36 - 48 hours. Aerobic Culture Final report (Normal) Result 1 NAAG72 (Normal) Comments: No aerobic or anaerobic growth in 72 hours. Anaerobic Culture Final report (Normal) 48-Jiq-733491:39 TSH (THYROID STIMULATING Comments: PATIENT NOT FASTINGPERFORMED BY: [employer] [id number] BY: [employer].md70 [facility] [id number] HORMONE) (36947) TSH 2.660 {uIU/mL} (Normal) Range: 0.450-4.500 32-Xfl-899504:39 CBC with auto diff Comments: PATIENT NOT FASTINGPERFORMED BY: [employer] [id number] BY: [employer] Jvbpwb0190 [facility] [id number] (89781) Immature Grans (Abs) 0.0 {x10E3/uL} (Normal) Range: [...] 4.14-5.80 WBC 9.0 {x10E3/uL} (Normal) Range: 3.4-10.8 91-Ycs-621250:39 METABOLIC PANEL, Comments: PATIENT NOT FASTINGPERFORMED BY: [facility] [address] [id number] BY: CB [facility] Jqyszb6310 [facility] [id number] COMPREHENSIVE (08997) ALT (SGPT) 21 [iU]/L (Normal) Range: 0-44 [...] 8-27 Glucose 147 mg/dL (Abnormal) Range: 65-99 74-Cbi-218468:39 LIPOPROTEIN, BLD, BY NMR Comments: PATIENT NOT FASTINGPERFORMED BY: BN [facility] [address] [id number] BY: CB [facility] Wftjjs6586 [facility] [id number] (32286) LP-IR Score 92 (Abnormal) Comments: INSULIN RESISTANCE MARKER <--Insulin Sensitive Insulin Resistant--> Percentile in Reference PopulationInsulin Resistance ScoreLP-IR Score Low 25th 50th 75th High <27 27 45 63 >63LP-IR Score is inaccurate if patient is non-fasting. .The LP-IR score is a laboratory developed i [facility] that has beenassociated with insulin resistance and [...] were developed and their performance characteristicsdetermined by [employer]. These assays have not been cleared by [...] 1600 - 2000 Very High > 2000 74-Bim-927085:39 CALCIFEDIOL (75117) Comments: PATIENT NOT FASTINGPERFORMED BY: [facility] [address] [id number] BY: [facility] Vwiayx7751 [facility] [id number] Vitamin D, 25-Hydroxy 37.3 ng/mL (Normal) Range: 30.0-100.0 Comments: Vitamin D deficiency has been defined by the Elaine ofMedicine and an Endocrine Society practice guideline as alevel of serum 25-OH vitamin D less than 20 ng/mL (1,2).The Endocrine Society went on to further define vitamin Dinsufficiency as a level between 21 and 29 ng/mL (2).1. IOM (Elaine of Medicine). 2010. Dietary reference intakes for calcium and D. [place]: The National Academies Press.2. Sandy MF, Braulio NC, Darren STILL, et al. Evaluation, treatment, and prevention of vitamin D deficiency: an Endocrine Society clinical practice guideline. JCEM. 2010; 96(7):1911-30. :29 HgA1C , Office (98342) HgA1C , Office 7.3 % (Abnormal) Range: 4.6 - 7.1 :29 Blood Glucose , Office (09459) Blood Glucose , Office 151 (Normal) 2-Jkz-332273:31 Microscopic Examination Comments: PATIENT WAS FASTINGPERFORMED BY: [employer] [id number] BY: [employer] Qfajcv8313 [facility] [id number] Bacteria Few (Normal) Mucus Threads Present (Normal) Crystal Type Calcium Oxalate (Normal) Crystals Present (Abnormal) Epithelial Cells (non renal) None seen {/hpf} (Normal) Range: 0 - 10 RBC 0-2 {/hpf} (Normal) Range: 0 - 2 WBC 11-30 {/hpf} (Abnormal) Range: 0 - 5 3-Ooz-144856:31 LIPOPROTEIN, BLD, BY NMR Comments: PATIENT WAS FASTINGPERFORMED BY: [employer] [id number] BY: Corceuticalslin6370 [facility] [id number] (04760) LP-IR Score 89 (Abnormal) Comments: INSULIN RESISTANCE MARKER <--Insulin Sensitive Insulin Resistant--> Percentile in Reference PopulationInsulin Resistance ScoreLP-IR Score Low 25th 50th 75th High <27 27 45 63 >63LP-IR Score is inaccurate if patient is non-fasting. .The LP-IR score is a laboratory developed i [facility] that has beenassociated with insulin resistance and [...] were developed and their performance characteristicsdetermined by [employer]. These assays have not been cleared by [...] - 2000 Very High > 27-May-201710:31 CALCIFEDIOL (50752) Comments: PATIENT WAS FASTINGPERFORMED BY: [facility] [id number] BY: LabCoCare [facility] CenterSorzyt3695 [facility] [id number] Vitamin D, 25-Hydroxy 35.2 ng/mL (Normal) Range: 30.0-100.0 Comments: Vitamin D deficiency has been defined by the Elaine ofMedicine and an Endocrine Society practice guideline as alevel of serum 25-OH vitamin D less than 20 ng/mL (1,2).The Endocrine Society went on to further define vitamin Dinsufficiency as a level between 21 and 29 ng/mL (2).1. IOM (Elaine of Medicine). 2010. Dietary reference intakes for calcium and D. [place]: The National Academies Press.2. Sandy MF, Braulio [place], Darren STILL, et al. Evaluation, treatment, and prevention of vitamin D deficiency: an Endocrine Society clinical practice guideline. JCEM. 2010; 96(7):1911-30. 7-Ota-738152:31 TSH (37712) Comments: PATIENT WAS FASTINGPERFORMED BY: [employer] [place] [address] [id number] BY: [employer]5[facility] CenterIefnng7982 [facility] [id number] TSH 2.920 {uIU/mL} (Normal) Range: 0.450-4.500 8-Osg-827191:31 URINALYSIS, W/ MICRO Comments: PATIENT WAS FASTINGPERFORMED BY: [employer] [id number] BY: [employer] Wbwkgv5373 [facility] [id number] (07254) Microscopic Examination See below: (Normal) Comments: Microscopic was indicated and was performed. Nitrite, Urine Positive (Abnormal) Urobilinogen,Semi-Qn 0.2 mg/dL (Normal) Range: 0.2-1.0 Bilirubin Negative (Normal) Occult Blood Negative (Normal) Ketones Negative (Normal) Glucose Trace (Abnormal) Protein Trace (Normal) WBC Esterase Negative (Normal) Appearance Clear (Normal) Urine-Color Yellow (Normal) pH 5.0 (Normal) Range: 5.0-7.5 Specific [place] 1.025 (Normal) Range: 1.005-1.030 3-Yjv-806521:31 MICROALBUMIN: CREATININE Comments: PATIENT WAS FASTINGPERFORMED BY: [employer] [id number] BY: [facility]6370 [facility] [id number] RATIO (27771) AND (82435) Alb/Creat Ratio 60.1 {mg/g_creat} (Abnormal) Range: 0.0-30.0 Albumin, Urine 107.3 ug/mL (Normal) Creatinine, Urine 178.6 mg/dL (Normal) 5-Oed-739032:31 METABOLIC PANEL, Comments: PATIENT WAS FASTINGPERFORMED BY: [employer]5[place] [address] [facility] [id number] BY: [employer]5[facility] CenterZubaqt3174 [facility] [id number] COMPREHENSIVE (99958) ALT (SGPT) 21 [iU]/L (Normal) Range: 0-44 [...] Comments: PATIENT WAS FASTINGPERFORMED BY: BN [facility] Theptxuyqs3673 [facility] [id number] BY: CB [facility] Txqcca1722 [facility] [id number] (49739) Immature Grans (Abs) 0.0 {x10E3/uL} (Normal) Range: [...] (Normal) Range: 3.4-10.8 :55 HgA1C , Office (13117) HgA1C , Office 8.4 % (Abnormal) Range: 4.6 - 7.1 :55 Blood Glucose , Office (92050) Blood Glucose , Office 197 (Normal) :45 HgA1C , Office (00350) HgA1C , Office 8.1 % (Abnormal) Range: 4.6 - 7.1 :45 Blood Glucose , Office (02156) Blood Glucose , Office 183 (Normal) :30 Culture, Urine Comments: [facility] Uenazhzzco[address] [facility] [place], [address] CUUR See Note (Normal) Comments: [...] <=0.5 S(NF) indicates non- formulary drug at [facility]. Approval by Infectious Disease Specialist required before non-formulary drugs may be ordered and/or dispensed. * CLSI guidelines does not recommend testing of cephalosporins. This interpretation is deduced from Beta-lactam/penicillin results. :32 Miscellaneous Lab Procedure Comments: Test(s) Ordered: [id number], TAPENDADOL, LAV TOP, ROOM [facility] [address] [place], [address] [facility] Comments: TEST RESULT UNITS REFERENCE INTERVALTapentadol, WBTapentadol 43.3 ng/mLThis test was developed and its performance characteristicsdetermined by [facility]. It has not LAB (Normal) been cleared or approvedby the Food and Drug Administration.REFERENCE RANGE: Not Established TESTING PERFORMED AT [facility]. ORIGINAL REPORT ON F TEST ILE IN LAB CONTAINS ADDITIONAL TEST SITE INFORMATION. 38-Lgh-575564:09 Microscopic Examination Comments: PATIENT WAS FASTINGPERFORMED BY: [facility]6370 [facility] [id number] Bacteria Few (Normal) Mucus Threads Present (Normal) Epithelial Cells (non renal) 0-10 {/hpf} (Normal) Range: 0 - 10 RBC 0-2 {/hpf} (Normal) Range: 0 - 2 WBC 11-30 {/hpf} (Abnormal) Range: 0 - 5 :09 TSH (57940) Comments: PATIENT WAS FASTINGPERFORMED BY: [facility]6370 [facility] [id number] TSH 2.510 {uIU/mL} (Normal) Range: 0.450-4.500 13-Jiq-493784:09 CALCIFEDIOL (31789) Comments: PATIENT WAS FASTINGPERFORMED BY: [facility]6370 [facility] [id number] Vitamin D, 25-Hydroxy 42.9 ng/mL (Normal) Range: 30.0-100.0 Comments: Vitamin D deficiency has been defined by the Elaine ofMedicine and an Endocrine Society practice guideline as alevel of serum 25-OH vitamin D less than 20 ng/mL (1,2).The Endocrine Society went on to further define vitamin Dinsufficiency as a level between 21 and 29 ng/mL (2).1. IOM (Elaine of Medicine). 2010. Dietary reference intakes for calcium and D. [place]: The National Academies Press.2. Sandy MF, Braulio [place], Darren STILL, et al. Evaluation, treatment, and prevention of vitamin D deficiency: an Endocrine Society clinical practice guideline. JCEM. 2010; 96(7):1911-30. 49-Ldf-585883:09 URINALYSIS, W/ MICRO (61921) Comments: PATIENT WAS FASTINGPERFORMED BY: [employer]5[facility] CenterOelrhw0193 [facility] [id number] Microscopic Examination See below: (Normal) Comments: Microscopic was indicated and was performed. Nitrite, Urine Negative (Normal) Urobilinogen,Semi-Qn 0.2 mg/dL (Normal) Range: 0.2-1.0 Bilirubin Negative (Normal) Occult Blood Negative (Normal) Ketones Negative (Normal) Glucose Negative (Normal) Protein 1+ (Abnormal) WBC Esterase 1+ (Abnormal) Appearance Cloudy (Abnormal) Urine-Color Yellow (Normal) pH 7.5 (Normal) Range: 5.0-7.5 Specific [place] 1.024 (Normal) Range: 1.005-1.030 09-Oht-269462:09 MICROALBUMIN: CREATININE RATIO Comments: PATIENT WAS FASTINGPERFORMED BY: [employer]5[facility] CenterAjrsgd3163 [facility] [id number] (98094) AND (60449) Microalb/Creat Ratio 49.7 {mg/g_creat} (Abnormal) Range: 0.0-30.0 Microalbumin, Urine 78.3 ug/mL (Normal) Creatinine, Urine 157.5 mg/dL (Normal) :09 METABOLIC PANEL, COMPREHENSIVE Comments: PATIENT WAS FASTINGPERFORMED BY: [facility]6370 [facility] [id number] (64032) ALT (SGPT) 19 [iU]/L (Normal) Range: 0-44 [...] Glucose, Serum 136 mg/dL (Abnormal) Range: 65-99 14-Zpw-649183:09 LIPID PANEL (11927) Comments: PATIENT WAS FASTINGPERFORMED BY: [employer] [id number] LDL/HDL Ratio 2.5 {ratio_units} (Normal) Range: 0.0-3.6 Comments: LDL/HDL Ratio Men Women 1/2 Avg.Risk 1.0 1.5 Av g.Risk 3.6 3.2 2X Avg.Risk 6.2 5.0 3X Avg.Risk 8.0 6.1 LDL Cholesterol Calc 101 mg/dL (Abnormal) Range: 0-99 VLDL Cholesterol [place] 28 mg/dL (Normal) Range: 5-40 HDL Cholesterol 41 mg/dL (Normal) Triglycerides 139 mg/dL (Normal) Range: 0-149 Cholesterol, Total 170 mg/dL (Normal) Range: 100-199 82-Vcm-933919:09 CBC W/AUTO DIFF WBC (77991) Comments: PATIENT WAS FASTINGPERFORMED BY: [employer] [id number] Immature Grans (Abs) 0.0 {x10E3/uL} (Normal) Range: [...] (Normal) Range: 3.4-10.8 :36 HgA1C , Office (24779) HgA1C , Office 7.3 % (Abnormal) Range: 4.6 - 7.1 :36 Blood Glucose , Office (77178) Blood Glucose , Office 131 (Normal) 31-Xdv-654693:30 Culture, Aerobic, Comments: PERFORMED BY: [facility]Co[facility] CenterDrpuoy3840 [facility] [id number] Information: SRC:RL Bacterial ID (95483) Result 1 MSFGN (Normal) Comments: 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 Aerobic Bacterial Culture Final report (Normal) :15 Miscellaneous Lab Procedure Comments: Comments: [id number]; FISH URINE TEST; 50MLTest(s) Ordered: [id number]; FISH URINE TEST; [facility] [address]orvks[address] [place], [place], [address] [facility] [place] [place] LAB TEST (Normal) Comments: Scanned image report available in EMR :15 PSA,Total - Annual Screen Comments: [facility] Spwoixymud[address] [place], [place], [id number] PSA,TOT SCREEN 0.14 ng/mL (Normal) Range: 0.00-4.00 Comments: This test was performed using the TPSA assay method for theServiceful chemistry system. Values obtained with differentassay methods cannot be used interchangably.When changing PSA assays in the course of monitoring apatient, additional sequential testing should be carriedout to confirm baseline values. :15 Testosterone, Serum Total Comments: [facility] [address] [place], [place], [address] Testosterone 396 ng/dL (Normal) Range: 241-827 :45 Culture, Urine Comments: [facility] Q[address]hbremhs[address] [place], [place], [address] CUUR See Note (Normal) Comments: Urine CultureORGANISM 1: Mixed Gram Positive OrganismsColony Count 25,000-50,000MIX CULTURE Mixed contaminants. Submit a new specimen if indicated. :30 HgA1C , Office (28211) HgA1C , Office 9.5 % (Abnormal) Range: 4.6 - 7.1 :30 Blood Glucose , Office (24133) Blood Glucose , Office 178 (Normal) 59-Msz-294894:57 Fecal Occult Blood , Office (31710) Fecal Occult Blood , Office (Inhouse) negative (Normal) 57-Xpi-509551:51 POTASSIUM SERUM (80719) Comments: PATIENT NOT FASTINGPERFORMED BY: [facility] Vmotvb8349 Juliann [facility] [id number] Information: [id number] Potassium, Serum 4.9 mmol/L (Normal) Range: 3.5-5.2 :23 HgA1C , Office (63470) HgA1C , Office 8.4 % (Abnormal) Range: 4.6 - 7.1 :23 Blood Glucose , Office (11862) Blood Glucose , Office 129 (Normal) :34 TSH (THYROID STIMULATING Comments: PATIENT WAS FASTINGPERFORMED BY: [facility]6370 [facility] [id number] HORMONE) (46334) TSH 1.580 {uIU/mL} (Normal) Range: 0.450-4.500 :34 CALCIFEDIOL (70305) Comments: PATIENT WAS FASTINGPERFORMED BY: [facility] [id number] Vitamin D, 25-Hydroxy 44.9 ng/mL (Normal) Range: 30.0-100.0 Comments: Vitamin D deficiency has been defined by the Elaine ofMedicine and an Endocrine Society practice guideline as alevel of serum 25-OH vitamin D less than 20 ng/mL (1,2).The Endocrine Society went on to further define vitamin Dinsufficiency as a level between 21 and 29 ng/mL (2).1. IOM (Elaine of Medicine). 2010. Dietary reference intakes for calcium and D. [place]: The National Academies Press.2. Sandy MF, Braulio NC, Darren STILL, et al. Evaluation, treatment, and prevention of vitamin D deficiency: an Endocrine Society clinical practice guideline. JCEM. 2010; 96(7):1911-30. :34 METABOLIC PANEL, COMPREHENSIVE Comments: PATIENT WAS FASTINGPERFORMED BY: [facility]6[address] [facility] [id number] (19008) ALT (SGPT) 20 [iU]/L (Normal) Range: 0-44 [...] mg/dL (Abnormal) Range: 65-99 :34 LIPID PANEL (52047) Comments: PATIENT WAS FASTINGPERFORMED BY: [employer] [id number] LDL/HDL Ratio 2.4 {ratio_units} (Normal) Range: 0.0-3.6 [...] auto diff Comments: PATIENT WAS FASTINGPERFORMED BY: Ubitexx6370 [facility] [id number] Information: [id number] (35442) Immature Grans (Abs) 0.0 {x10E3/uL} (Normal) Range: [...] 4.14-5.80 WBC 8.3 {x10E3/uL} (Normal) Range: 3.4-10.8 1-Ahe-634383:22 Microscopic Examination Comments: PATIENT WAS FASTINGPERFORMED BY: BEATA [facility]Co[facility] CenterXtfics2408 [facility] [id number] Bacteria Few (Normal) Mucus Threads Present (Normal) Crystal Type Calcium Oxalate (Normal) Crystals Present (Abnormal) Epithelial Cells (non renal) None seen {/hpf} (Normal) Range: 0 - 10 RBC 0-2 {/hpf} (Normal) Range: 0 - 2 WBC 11-30 {/hpf} (Abnormal) Range: 0 - 5 :22 CBC W/AUTO DIFF WBC Comments: PATIENT WAS FASTINGPERFORMED BY: BEATA [facility]6370 [facility] [id number] Information: [id number] (85053) Immature Grans (Abs) 0.0 {x10E3/uL} (Normal) Range: [...] 4.14-5.80 WBC 8.9 {x10E3/uL} (Normal) Range: 3.4-10.8 9-Mmp-802651:22 TSH (59346) Comments: PATIENT WAS FASTINGPERFORMED BY: BEATA [facility]6370 [facility] [id number] TSH 3.050 {uIU/mL} (Normal) Range: 0.450-4.500 6-Hdg-905760:22 URINALYSIS, W/ MICRO (01462) Comments: PATIENT WAS FASTINGPERFORMED BY: [facility]6370 [facility] [id number] Microscopic Examination See below: (Normal) Comments: Microscopic was indicated and was performed. Nitrite, Urine Positive (Abnormal) Urobilinogen,Semi-Qn 0.2 mg/dL (Normal) Range: 0.2-1.0 Bilirubin Negative (Normal) Occult Blood Negative (Normal) Ketones Negative (Normal) Glucose Negative (Normal) Protein Negative (Normal) WBC Esterase 1+ (Abnormal) Appearance Clear (Normal) Urine-Color Yellow (Normal) pH 6.0 (Normal) Range: 5.0-7.5 Specific [place] 1.020 (Normal) Range: 1.005-1.030 :22 MICROALBUMIN: CREATININE RATIO Comments: PATIENT WAS FASTINGPERFORMED BY: [facility]6370 [facility] [id number] (96515) AND (08181) Microalb/Creat Ratio 23.2 {mg/g_creat} (Normal) Range: 0.0-30.0 Microalbumin, Urine 23.0 ug/mL (Abnormal) Range: 0.0-17.0 Creatinine, Urine 99.2 mg/dL (Normal) Range: 22.0-328.0 :22 METABOLIC PANEL, COMPREHENSIVE Comments: PATIENT WAS FASTINGPERFORMED BY: [facility]6370 [facility] [id number] (01428) ALT (SGPT) 23 [iU]/L (Normal) Range: 0-44 [...] 95 mg/dL (Normal) Range: 65-99 :22 CALCIFIDIOL (91828) VIT D 25 Comments: PATIENT WAS FASTINGPERFORMED BY: [employer] [facility] [id number] Vitamin D, 25-Hydroxy 55.3 ng/mL (Normal) Range: 30.0-100.0 Comments: Vitamin D deficiency has been defined by the Elaine ofMercy Health Anderson Hospitalcine and an Endocrine Society practice guideline as alevel of serum 25-OH vitamin D less than 20 ng/mL (1,2).The Endocrine Society went on to further define vitamin Dinsufficiency as a level between 21 and 29 ng/mL (2).1. IOM (Elaine of Medicine). 2010. Dietary reference intakes for calcium and D. [place]: The National Academies Press.2. Sandy MF, Braulio NC, Darren STILL, et al. Evaluation, treatment, and prevention of vitamin D deficiency: an Endocrine Society clinical practice guideline. JCEM. 2010; 96(7):1911-30. :22 LIPID PANEL (05287) Comments: PATIENT WAS FASTINGPERFORMED BY: Didatuan70 [facility] [id number] LDL/HDL Ratio 1.9 {ratio_units} (Normal) Range: 0.0-3.6 [...] Range: 100-199 :11 Blood Glucose , Office (31452) Blood Glucose , Office 116 (Normal) :11 HgA1C , Office (47937) HgA1C , Office 8.8 % (Abnormal) Range: 4.6 - 7.1 :17 Hemoglobin Glyclated (HGB A1C) Comments: PATIENT NOT FASTINGPERFORMED BY: LabRelevance MediaCare One at [facility] Medical CenterGwiooy0665 [facility] [id number] (78215) Hemoglobin A1c 8.9 % (Abnormal) Range: 4.8-5.6 Comments: . Pre-diabetes: 5.7 - 6.4 Diabetes: >6.4 Glycemic control for adults with diabetes: <7.0 :17 TSH (72517) Comments: PATIENT NOT FASTINGPERFORMED BY: LabCoCare One at [facility] CenterUhbcwd0367 [facility] [id number] TSH 2.960 {uIU/mL} (Normal) Range: 0.450-4.500 :17 METABOLIC PANEL, COMPREHENSIVE Comments: PATIENT NOT FASTINGPERFORMED BY: LabCoCare [facility] CenterLtifml7007 [facility] [id number] (96340) ALT (SGPT) 25 [iU]/L (Normal) Range: 0-44 [...] Glucose, Serum 113 mg/dL (Abnormal) Range: 65-99 44-Znt-92711:17 CBC W/AUTO DIFF WBC Comments: PATIENT NOT FASTINGPERFORMED BY: LabCo[facility] CenterGprjyu7524 [facility] [id number] Information: [id number] (51484) Immature Grans (Abs) OTHER {x10E3/uL} (Normal) Range: [...] {x10E3/uL} (Normal) Range: 3.4-10.8 :17 LIPID PANEL (97958) Comments: PATIENT NOT FASTINGPERFORMED BY: SuccessTSM6370 [facility] [id number] LDL/HDL Ratio 3.0 {ratio_units} (Normal) Range: 0.0-3.6 [...] 187 mg/dL (Normal) Range: 100-199 :17 CALCIFIDIOL (30535) VIT D 25 Comments: PATIENT NOT FASTINGPERFORMED BY: LabCo Ychwpt6449 [facility] [id number] Vitamin D, 25-Hydroxy 56.3 ng/mL (Normal) Range: 30.0-100.0 Comments: Vitamin D deficiency has been defined by the Elaine ofMedicine and an Endocrine Society practice guideline as alevel of serum 25-OH vitamin D less than 20 ng/mL (1,2).The Endocrine Society went on to further define vitamin Dinsufficiency as a level between 21 and 29 ng/mL (2).1. IOM (Elaine of Medicine). 2010. Dietary reference intakes for calcium and D. [place]: The National Academies Press.2. Sandy MF, Braulio DALTON, Darren STILL, et al. Evaluation, treatment, and prevention of vitamin D deficiency: an Endocrine Society clinical practice guideline. JCEM. 2010; 96(7):1911-30. :05 Blood Glucose , Office (90651) Blood Glucose , Office 114 (Normal) :02 HgA1C , Office (81841) HgA1C , Office 8.4 % (Abnormal) Range: 4.6 - 7.1 :02 Blood Glucose , Office (16910) Blood Glucose , Office 241 (Normal) Comments: not fasting :58 HgA1C , Office (48096) HgA1C , Office 7.9 % (Abnormal) Range: 4.6 - 7.1 :58 Blood Glucose , Office (27827) Blood Glucose , Office 135 (Normal) :40 Prostate-Specific Ag, Serum Comments: PATIENT NOT FASTINGPERFORMED BY: Didatuan70 [employer] [id number] Information: [id number] ORDER Prostate Specific Ag, 0.1 ng/mL (Normal) Range: 0.0-4.0 Serum Comments: [employer] ECLIA methodology. .According to the [employer], Serum PSA shoulddecrease and remain [...] With Differential/Platelet Comments: PATIENT WAS FASTINGPERFORMED BY: Ubitexx6370 [employer] [id number] Information: [id number] Immature Grans (Abs) 0.0 {x10E3/uL} (Normal) Range: [...] 4.14-5.80 WBC 7.4 {x10E3/uL} (Normal) Range: 3.4-10.8 04-Wzw-11551:23 Comp. Metabolic Panel (14) Comments: PATIENT WAS FASTINGPERFORMED BY: LabCoCare [facility] CenterHutdjp6644 [facility] [id number] ALT (SGPT) 16 [iU]/L (Normal) Range: 0-44 [...] % (Abnormal) Comments: PATIENT WAS FASTINGPERFORMED BY: [place] [employer] [facility] [id number] :23 Range: 4.8-5.6 Comments: . Increased risk for diabetes: 5.7 - 6.4 Diabetes: >6.4 Glycemic control for adults with diabetes: <7.0 :23 Lipid Panel With LDL/HDL Comments: PATIENT WAS FASTINGPERFORMED BY: Bright.md70 [facility] [id number] Ratio LDL/HDL Ratio 2.2 {ratio_units} (Normal) Range: [...] Randm Ur Comments: PATIENT WAS FASTINGPERFORMED BY: Stratus5[facility] HospitalEakrdk1297 [facility] [id number] Microalb/Creat Ratio 78.4 {mg/g_creat} (Abnormal) Range: 0.0-30.0 Microalbumin, Urine 66.5 ug/mL (Abnormal) Range: 0.0-17.0 Creatinine, Urine 84.8 mg/dL (Normal) Range: 22.0-328.0 :23 Microscopic Examination Comments: PATIENT WAS FASTINGPERFORMED BY: Stratus5[facility] CenterVettyz0144 [facility] [id number] Bacteria Few (Normal) Mucus Threads Present (Normal) Epithelial Cells (non 0-10 {/hpf} Range: 0 - 10 renal) (Normal) RBC 0-2 {/hpf} (Normal) Range: 0 - 2 WBC 6-10 {/hpf} Range: 0 - 5 (Abnormal) TSH 1.390 {uIU/mL} Comments: PATIENT WAS FASTINGPERFORMED BY: [facility]Up.comH[facility]6370 [facility] [id number] :23 (Normal) Range: 0.450-4.500 :23 Urinalysis, Complete Comments: PATIENT WAS FASTINGPERFORMED BY: [facility]orkUp.comH[facility] Hospital6370 [facility] [id number] Microscopic Examination See below: (Normal) Comments: Microscopic was indicated and was performed. Nitrite, Urine Positive (Abnormal) Urobilinogen,Semi-Qn 1.0 mg/dL (Normal) Range: 0.0-1.9 Bilirubin Negative (Normal) Occult Blood Negative (Normal) Ketones Negative (Normal) Glucose Negative (Normal) Protein Trace (Normal) WBC Esterase Negative (Normal) Appearance Clear (Normal) Urine-Color Yellow (Normal) pH 7.0 (Normal) Range: 5.0-7.5 Specific [place] 1.017 (Normal) Range: 1.005-1.030 Vitamin D, 25-Hydroxy 65.7 ng/mL (Normal) Comments: PATIENT WAS FASTINGPERFORMED BY: BEATA Joseph6370 Juliann [facility]Lee[facility] [id number] :23 Range: 30.0-100.0 Comments: Vitamin D deficiency has been defined by the Elaine ofMedicine and an Endocrine Society practice guideline as alevel of serum 25-OH vitamin D less than 20 ng/mL (1,2).The Endocrine Society went on to further define vitamin Dinsufficiency as a level between 21 and 29 ng/mL (2).1. IOM (Elaine of Medicine). 2010. Dietary reference intakes for calcium and D. [place]: The National AcademHelleroy Press.2. Braulio Evans, Darren STILL, et al. Evaluation, treatment, and prevention of vitamin D deficiency: an Endocrine Society clinical practice guideline. JCEM. 2010; 96(7):1911-. :56 CALCIFIDIOL (79660) VIT D 25 Comments: do in june 2014; PATIENT NOT FASTINGPERFORMED BY: [facility]orkUp.comMadison Medical Center Dhjkze4654 [facility] [id number] Vitamin D, 25-Hydroxy 23.2 ng/mL (Abnormal) Range: 30.0-100.0 Comments: Vitamin D deficiency has been defined by the Elaine ofMedicine and an Endocrine Society practice guideline as alevel of serum 25-OH vitamin D less than 20 ng/mL (1,2).The Endocrine Society went on to further define vitamin Dinsufficiency as a level between 21 and 29 ng/mL (2).1. IOM (Elaine of Medicine). 2010. Dietary reference intakes for calcium and D. [place]: The National Academies Press.2. Braulio Evans, Darren STILL, et al. Evaluation, treatment, and prevention of vitamin D deficiency: an Endocrine Society clinical practice guideline. JCEM. 2010; 96(7):1911-30. :56 T4, FREE (THYROXINE) Comments: PATIENT NOT FASTINGPERFORMED BY: [facility]6370 [facility] [id number] Information: [id number] (36941) T4,Free(Direct) 1.07 ng/dL (Normal) Range: 0.82-1.77 :56 T3, FREE (TRIDOTHYRONINE) (68941) Comments: PATIENT NOT FASTINGPERFORMED BY: LabMadison [facility] Center Nhrnbd6400 [facility] [id number] Triiodothyronine,Free,Serum 2.8 pg/mL (Normal) Range: 2.0-4.4 :56 TSH (34311) Comments: PATIENT NOT FASTINGPERFORMED BY: [facility] Ephsis1571 [facility] [id number] TSH 1.790 {uIU/mL} (Normal) Range: 0.450-4.500 :57 HgA1C , Office (58553) HgA1C , Office 7.0 % (Normal) Range: 4.6 - 7.1 :57 Blood Glucose , Office (18367) Blood Glucose , Office 146 (Normal) :24 Microscopic Examination Comments: PATIENT NOT FASTINGPERFORMED BY: BEATA NguyenMadison Medical Center Ndgjco0411 [facility] [id number] Bacteria Few (Normal) Mucus Threads Present (Normal) Epithelial Cells (non renal) 0-10 {/hpf} (Normal) Range: 0 - 10 RBC 0-2 {/hpf} (Normal) Range: 0 - 2 WBC 0-5 {/hpf} (Normal) Range: 0 - 5 :24 Vitamin D Hydroxy (76200) Comments: PATIENT NOT FASTINGPERFORMED BY: LabMad[facility] Vdmwlb5070 [facility] Hospitalin [place] [id number] Vitamin D, 25-Hydroxy 22.8 ng/mL (Abnormal) Range: 30.0-100.0 Comments: Vitamin D deficiency has been defined by the Elaine ofMedicine and an Endocrine Society practice guideline as alevel of serum 25-OH vitamin D less than 20 ng/mL (1,2).The Endocrine Society went on to further define vitamin Dinsufficiency as a level between 21 and 29 ng/mL (2).1. IOM (Elaine of Medicine). 2010. Dietary reference intakes for calcium and D. [place]: The National Academies Press.2. Sandy MF, Braulio DALTON, Darren STILL, et al. Evaluation, treatment, and prevention of vitamin D deficiency: an Endocrine Society clinical practice guideline. JCEM. 2010; 96(7):1911-30. :24 TSH (14468) Comments: PATIENT NOT FASTINGPERFORMED BY: [employer].md70 [employer] [id number] TSH 0.812 {uIU/mL} (Normal) Range: 0.450-4.500 :24 URINALYSIS, W/ MICRO (54676) Comments: PATIENT NOT FASTINGPERFORMED BY: Ubitexx6370 [employer] [id number] Microscopic Examination See below: (Normal) Comments: Microscopic was indicated and was performed. Microscopic Examination MICRON (Normal) Comments: Microscopic follows if indicated. Nitrite, Urine Negative (Normal) Urobilinogen,Semi-Qn 0.2 mg/dL (Normal) Range: 0.0-1.9 Bilirubin Negative (Normal) Occult Blood Negative (Normal) Ketones Negative (Normal) Glucose Negative (Normal) Protein Negative (Normal) WBC Esterase Negative (Normal) Appearance Clear (Normal) Urine-Color Yellow (Normal) pH 6.5 (Normal) Range: 5.0-7.5 Specific [place] 1.020 (Normal) Range: 1.005-1.030 :24 MICROALBUMIN: CREATININE RATIO Comments: PATIENT NOT FASTINGPERFORMED BY: [place] Rdlkpd0313 [employer] [id number] (25936) AND (04038) Microalb/Creat Ratio 40.9 {mg/g_creat} (Abnormal) Range: 0.0-30.0 Microalbumin, Urine 42.8 ug/mL (Abnormal) Range: 0.0-17.0 Creatinine, Urine 104.7 mg/dL (Normal) Range: 22.0-328.0 :24 METABOLIC PANEL, COMPREHENSIVE Comments: PATIENT NOT FASTINGPERFORMED BY: Stratus5 Ebpjmy0329 [facility] [id number] (38008) ALT (SGPT) 19 [iU]/L (Normal) Range: 0-44 [...] mg/dL (Abnormal) Range: 65-99 :24 LIPID PANEL (34902) Comments: PATIENT NOT FASTINGPERFORMED BY: Stratus5 Nrmoco9640 [facility] [id number] LDL/HDL Ratio 1.9 {ratio_units} (Normal) Range: 0.0-3.6 [...] Cholesterol, Total 168 mg/dL (Normal) Range: 100-199 37-Zxa-74851:24 CBC W/AUTO DIFF WBC Comments: PATIENT NOT FASTINGPERFORMED BY: [facility] Frpwsu8465 [facility] [id number] Information: [id number] (14657) Immature Grans (Abs) 0.0 {x10E3/uL} (Normal) Range: [...] 3.4-10.8 :54 FECAL OCCULT- Tubes sent home (58388) FECAL OCCULT HGB ASSAY, QUAL, 1-3 SIMULTANEOU negative (Normal) :04 Microscopic Examination Comments: PATIENT WAS FASTINGPERFORMED BY: Stratus5 [employer] [facility]UNC [facility] [id number] Yeast Present (Abnormal) Bacteria Few (Normal) Mucus Threads Present (Normal) Epithelial Cells (non renal) None seen {/hpf} (Normal) Range: 0 - 10 RBC 0-3 {/hpf} (Normal) Range: 0 - 3 WBC 0-5 {/hpf} (Normal) Range: 0 - 5 :52 TSH (57198) Comments: PATIENT WAS FASTINGPERFORMED BY: Stratus5 [employer] [facility] HospitalSkytreeUNC Medical Center [id number] TSH 3.370 {uIU/mL} (Normal) Range: 0.450-4.500 :52 URINALYSIS, W/ MICRO (76099) Comments: PATIENT WAS FASTINGPERFORMED BY: [employer] [facility] [id number] Microscopic Examination See below: (Normal) Nitrite, Urine Negative (Normal) Urobilinogen,Semi-Qn 0.2 mg/dL (Normal) Range: 0.0-1.9 Bilirubin Negative (Normal) Occult Blood Negative (Normal) Ketones Negative (Normal) Glucose Negative (Normal) Protein 1+ (Abnormal) WBC Esterase Negative (Normal) Appearance Clear (Normal) Urine-Color Yellow (Normal) pH 6.0 (Normal) Range: 5.0-7.5 Specific [place] 1.027 (Normal) Range: 1.005-1.030 :52 MICROALBUMIN: CREATININE RATIO Comments: PATIENT WAS FASTINGPERFORMED BY: [employer] [facility] [id number] (23468) AND (55943) Creatinine, Urine 179.7 mg/dL (Normal) Range: 22.0-328.0 Microalb/Creat Ratio 71.7 {mg/g_creat} (Abnormal) Range: 0.0-30.0 Microalbumin, Urine 128.8 ug/mL (Abnormal) Range: 0.0-17.0 :52 METABOLIC PANEL, COMPREHENSIVE Comments: PATIENT WAS FASTINGPERFORMED BY: Didatuan70 [facility] [id number] (03590) ALT (SGPT) 24 [iU]/L (Normal) Range: 0-44 [...] mg/dL (Abnormal) Range: 65-99 :52 LIPID PANEL (11023) Comments: PATIENT WAS FASTINGPERFORMED BY: Ubitexx6370 [facility] [id number] LDL/HDL Ratio 1.9 {ratio_units} (Normal) Range: 0.0-3.6 LDL Cholesterol Calc 91 mg/dL (Normal) Range: 0-99 VLDL Cholesterol Meche 25 mg/dL (Normal) Range: 5-40 HDL Cholesterol 47 mg/dL (Normal) Comments: According to ATP-III Guidelines, HDL-C >59 mg/dL is considered anegative risk factor for CHD. Cholesterol, Total 163 mg/dL (Normal) Range: 100-199 Triglycerides 124 mg/dL (Normal) Range: 0-149 51-Omv-34979:52 CBC WITH MANUAL DIFF Comments: PATIENT WAS FASTINGPERFORMED BY: LabCoCare [facility] CenterXbfjdw7333 [facility] [id number] Information: [id number] (94452) Immature Grans (Abs) 0.0 {x10E3/uL} (Normal) Range: [...] 4.14-5.80 WBC 8.8 {x10E3/uL} (Normal) Range: 3.4-10.8 65-Ccy-40900:00 Blood Glucose , Office (86202) Blood Glucose , Office 129 (Normal) Comments: [id number] at home this am :00 HgA1C , Office (43054) HgA1C , Office 7.1 % (Normal) Range: 4.6 - 7.1 :06 Blood Glucose , Office (72049) Blood Glucose , Office 125 (Normal) :06 HgA1C , Office (33935) HgA1C , Office 6.5 % (Normal) Range: 4.6 - 7.1 63-Eol-367523:23 Microscopic Examination Comments: PATIENT WAS FASTINGPERFORMED BY: [place] [employer] [id number] Bacteria None seen (Normal) Mucus Threads Present (Normal) Epithelial Cells (non renal) 0-10 {/hpf} (Normal) Range: 0 - 10 RBC 0-3 {/hpf} (Normal) Range: 0 - 3 WBC 0-5 {/hpf} (Normal) Range: 0 - 5 :23 LIPID PANEL (76693) Comments: PATIENT WAS FASTINGPERFORMED BY: Ubitexx6370 [facility] [id number] LDL/HDL Ratio 1.9 {ratio_units} (Normal) Range: 0.0-3.6 LDL Cholesterol Calc 80 mg/dL (Normal) Range: 0-99 VLDL Cholesterol [place] 26 mg/dL (Normal) Range: 5-40 HDL Cholesterol 43 mg/dL (Normal) Comments: According to ATP-III Guidelines, HDL-C >59 mg/dL is considered anegative risk factor for CHD. Triglycerides 128 mg/dL (Normal) Range: 0-149 Cholesterol, Total 149 mg/dL (Normal) Range: 100-199 :23 TSH (87185) Comments: PATIENT WAS FASTINGPERFORMED BY: [place] [facility] [id number] TSH 1.190 {uIU/mL} (Normal) Range: 0.450-4.500 :23 URINALYSIS, W/ MICRO (64055) Comments: PATIENT WAS FASTINGPERFORMED BY: [facility]6370 [facility] [id number] Microscopic Examination See below: (Normal) Microscopic Examination MICRON (Normal) Comments: Microscopic follows if indicated. Nitrite, Urine Negative (Normal) Urobilinogen,Semi-Qn 0.2 mg/dL (Normal) Range: 0.0-1.9 Bilirubin Negative (Normal) Occult Blood Negative (Normal) Ketones Trace (Abnormal) Glucose Negative (Normal) Protein Negative (Normal) WBC Esterase Negative (Normal) Appearance Clear (Normal) Urine-Color Yellow (Normal) pH 5.5 (Normal) Range: 5.0-7.5 Specific [place] 1.017 (Normal) Range: 1.005-1.030 69-Oyy-116348:23 MICROALBUMIN: CREATININE RATIO Comments: PATIENT WAS FASTINGPERFORMED BY: [facility]6370 [facility] [id number] (87927) AND (48219) Microalb/Creat Ratio 20.4 {mg/g_creat} (Normal) Range: 0.0-30.0 Microalbumin, Urine 18.6 ug/mL (Abnormal) Range: 0.0-17.0 Creatinine, Urine 91.2 mg/dL (Normal) Range: 22.0-328.0 71-Gii-317109:23 METABOLIC PANEL, COMPREHENSIVE Comments: PATIENT WAS FASTINGPERFORMED BY: [facility]6370 [facility] [id number] (80879) ALT (SGPT) 26 [iU]/L (Normal) Range: 0-44 [...] Glucose, Serum 99 mg/dL (Normal) Range: 65-99 86-Eld-302465:23 CBC WITH MANUAL DIFF Comments: PATIENT WAS FASTINGPERFORMED BY: LabCoCare [facility] CenterJfxpqn6890 [facility] [id number] Information: [id number] (55231) Immature Grans (Abs) 0.0 {x10E3/uL} (Normal) Range: [...] 4.14-5.80 WBC 7.8 {x10E3/uL} (Normal) Range: 3.4-10.8 01-Ber-915169:57 FECAL OCCULT- Tubes sent home (46410) FECAL OCCULT HGB ASSAY, QUAL, 1-3 SIMULTANEOU negative (Normal) :37 HgA1C , Office (17546) HgA1C , Office 6.5 % (Normal) Range: 4.6 - 7.1 :37 Blood Glucose , Office (37278) Blood Glucose , Office 103 (Normal) :24 Microscopic Examination Comments: PATIENT WAS FASTINGPERFORMED BY: [employer] [facility] [id number] Bacteria Few (Normal) Mucus Threads Present (Normal) Epithelial Cells (non renal) 0-10 {/hpf} (Normal) Range: 0 - 10 RBC 4-10 {/hpf} (Abnormal) Range: 0 - 3 WBC 11-30 {/hpf} (Abnormal) Range: 0 - 5 :24 TSH (29394) Comments: PATIENT WAS FASTINGPERFORMED BY: [employer] [facility] [id number] TSH 2.300 {uIU/mL} (Normal) Range: 0.450-4.500 :24 URINALYSIS, W/ MICRO (72304) Comments: PATIENT WAS FASTINGPERFORMED BY: [employer] [facility] HospitalDublin [place] [id number] Microscopic Examination See below: (Normal) Nitrite, Urine Positive (Abnormal) Urobilinogen,Semi-Qn 0.2 mg/dL (Normal) Range: 0.0-1.9 Bilirubin Negative (Normal) Occult Blood 1+ (Abnormal) Ketones Trace (Abnormal) Glucose Negative (Normal) Protein Trace (Normal) WBC Esterase 2+ (Abnormal) Appearance Clear (Normal) Urine-Color Yellow (Normal) pH 5.5 (Normal) Range: 5.0-7.5 Specific [place] 1.026 (Normal) Range: 1.005-1.030 31-Aug-20129:24 METABOLIC PANEL, COMPREHENSIVE Comments: PATIENT WAS FASTINGPERFORMED BY: BEATA LabCoCare One at Rar[facility] Medical CenterNhirkm0895 [facility] [id number] (57115) ALT (SGPT) 31 [iU]/L (Normal) Range: 0-44 [...] DIFF Comments: PATIENT WAS FASTINGPERFORMED BY: BEATA LabCoAlta Vista Regional HospitalEowwdz2342 [facility] [id number] Information: [id number] (85229) Immature Grans (Abs) 0.0 {x10E3/uL} (Normal) Range: [...] CREATININE RATIO Comments: PATIENT WAS FASTINGPERFORMED BY: [facility]Co[facility] CenterZicdoc8814 [facility] [id number] (84647) AND (17005) Microalb/Creat Ratio 41.7 {mg/g_creat} (Abnormal) Range: 0.0-30.0 Microalbumin, Urine 73.8 ug/mL (Abnormal) Range: 0.0-17.0 Creatinine, Urine 176.9 mg/dL (Normal) Range: 22.0-328.0 :24 LIPID PANEL (76202) Comments: PATIENT WAS FASTINGPERFORMED BY: [facility]Co[facility] CenterRtmdsy9826 [facility] [id number] LDL/HDL Ratio 2.2 {ratio_units} (Normal) Range: 0.0-3.6 LDL Cholesterol Calc 83 mg/dL (Normal) Range: 0-99 VLDL Cholesterol Meche 27 mg/dL (Normal) Range: 5-40 Cholesterol, Total 147 mg/dL (Normal) Range: 100-199 HDL Cholesterol 37 mg/dL (Abnormal) Comments: According to ATP-III Guidelines, HDL-C >59 mg/dL is considered anegative risk factor for CHD. Triglycerides 136 mg/dL (Normal) Range: 0-149 :06 HgA1C , Office (21723) HgA1C , Office 6.6 % (Normal) Range: 4.6 - 7.1 :06 Blood Glucose , Office (49680) Blood Glucose , Office 98 (Normal) :59 Blood Glucose , Office (53582) Blood Glucose , Office 235 (Normal) 4-Wvu-133666:04 TSH (34649) Comments: PATIENT WAS FASTINGPERFORMED BY: [facility]Co[facility] CenterQxqall4013 [facility] [id number] TSH 1.710 {uIU/mL} (Normal) Range: 0.450-4.500 :04 METABOLIC PANEL, COMPREHENSIVE Comments: PATIENT WAS FASTINGPERFORMED BY: [facility]Co[facility] CenterXpzimb4794 [facility] [id number] (21227) ALT (SGPT) 30 [iU]/L (Normal) Range: 0-44 [...] Glucose, Serum 196 mg/dL (Abnormal) Range: 65-99 3-Msr-966042:04 LIPID PANEL (49293) Comments: PATIENT WAS FASTINGPERFORMED BY: [facility] CenterCmhkyk8753 [facility] [id number] LDL/HDL Ratio 2.3 {ratio_units} (Normal) Range: 0.0-3.6 [...] MANUAL DIFF Comments: PATIENT WAS FASTINGPERFORMED BY: [facility]6370 [facility] [id number] Information: [id number] (99958) Immature Grans (Abs) 0.0 {x10E3/uL} (Normal) Range: [...] (Normal) Range: 4.0-10.5 :59 HgA1C , Office (60025) HgA1C , Office 7.2 % (Abnormal) Range: 4.6 - 7.1 6-Sep-72085:02 HgA1C , Office (19459) HgA1C , Office 8.3 % (Abnormal) Range: 4.6 - 7.1 :02 Blood Glucose , Office (44486) Blood Glucose , Office 162 (Normal) :50 Microscopic Examination Comments: PATIENT NOT FASTINGPERFORMED BY: [employer] [facility] [id number] Bacteria Few (Normal) Mucus Threads Present (Normal) Epithelial Cells (non renal) None seen {/hpf} (Normal) Range: 0 - 10 RBC 0-3 {/hpf} (Normal) Range: 0 - 3 WBC 6-10 {/hpf} (Abnormal) Range: 0 - 5 :11 HgA1C , Office (07834) HgA1C , Office 6.9 % (Normal) Range: 4.6 - 7.1 :11 Blood Glucose , Office (87908) Blood Glucose , Office 115 (Normal) :50 MICROALBUMIN: CREATININE RATIO Comments: PATIENT NOT FASTINGPERFORMED BY: StorkUp.comHills & Dales General Hospital6370 [facility] [id number] (35677) AND (75267) Microalb/Creat Ratio 20.0 {mg/g_creat} (Normal) Range: 0.0-30.0 Creatinine, Urine 97.5 mg/dL (Normal) Range: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 SBC/INTRM On: 13-Jan-2012 Intent ([id number])By: Kelly Vargas DO Comments: 0.5 cc given im lt arm lot [id number] 06/07/13 Kelly Vargas DO ADMINISTRATION OF PNEUMOCOCCAL On: 13-Jan-2012 Intent VACCINE (G0009)By: Kelly Vargas DO, DO, Kathleen FLU VAC, SPLIT, >3 YEARS, INTRAMUSC On: 30-Dec-2011 Intent ([id number])By: Kelly Vargas DO Comments: Lot #[id number]-L dltd, IMDose prefilled syringegiven by:SCHUYLER NagyVIS signed [...] (G8553)By: Kelly Vargas DO, DO, Kathleen EKG ([id number])By: Kelly Vargas DO On: 03-Aug-2010 Intent Kelly Vargas DO Comments: nsr no acute chg-- nonspecif flattening TDAP VACCINE >7 IM ([id number])By: On: 03-Aug-2010 Intent Kelly Vargas DO, DO, Comments: Lot #[id number]/24/13Site-left deltoidgiven by:YOLANDA Mendoza EKG ([id number])By: Kelly Vargas DO On: 13-Feb-2009 Intent Kelly Vargas DO Comments: nsr no acute changes Toradol Injection, 30 mg On: 26-Jun-2007 Intent (J1885)By: Kelly Vargas DO Comments: Lot #[id number]-right [id number] by Kelly Rodgers LPN, DO CT - [...] Advance Directives Name Dates Details Immunization Registry [place] - Effective on 03/02/2017. 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 The patient does not have durable power of commonwealth attorney or living will. Other providers contributing [...] patient is following up for include Al miguel identified problems below, blood sugar issues, cardiac [...] patient does not have durable power of commonwealth attorney or living will. The patient has [...] patient does not have durable power of commonwealth attorney or living will. The patient has [...] roblems below, blood sugar issues, high blood pressure, [...] patient does not have durable power of commonwealth attorney or living will. The patient has [...] (796.2) [facility] Historical Summary On: 13-Feb-2008 9:34 [facility] End: 07-Jun-2007 9:36 [...] of Hypertension (796.2) [facility] Payers [facility] [employer] Clark; eduar guarantor
--- OUTSIDE RECORDS SUMMARY | 2018-07-17 07:42 | XMS RPT_ITS | Continuity of Care Document ---
:1945 Author Organization [facility] Address [facility]7 [facility] 2 [place] [address] Phone Care Team Providers Name Role Phone Kelly Vargas DO Unavailable Mamie Clau Unavailable [facility]aling [facility], Wound Unavailable Donaldo Burnham MD Unavailable [facility] Unavailable Luis, SCHUYLER Robb Unavailable Unavailable [...] PRYORSharon E Start : 15-Apr-2017 Active [place] /16 31G X 5 MM Miscellaneous 1 [...] Quantity: 10 {Tablet} Refills: 0 Ordered:06-Jun-2007 Clarisse Smtih LPN Start : 06-Jun-2007 End : 19-Jun-2007 [...] : 09-Jan-2018 Inactive Comments:changed by jahaira 03/29/16[facility] Phentermine HCl 37.5 MG Oral Tablet 1 [...] 10-Apr-2015 End : 10-Apr-2015 Inactive Comments:DX: 250.02NPI: [id number] TRAMADOL HCL, 50MG (Oral Tablet) 1 q [...] AND Physical Result: Comments: See Note; NOTES: [facility] [address] [place] [address] Wound Ctr History AND Physical 11/16/16 8435 MR#: [id number] Acct: [id number] Name: PERRY ROCA Rep #: [id number] : 1945 71 From: Juan J Edwards [...] Date Recorded By Document 11/16/16 16:26 DL [id number] 11/16/16 16:29 DL 11/16/16 16:26 Wound Center Nurse 1 [Ulcer Assessment] #1 right thigh ucler -Current Size (cm) - Length 0 -Current Size (cm) - Width 0 -Current Size (cm) - Depth 0 -Total Squa re Cm 0 -Photo Taken Yes -Epithelialization Large 67-100% -Exudate Amt None Present (0 %) -Granulation Amt Large (67-100%) -Granulation Quality [employer] -Necrosis Amt None Present (0 %) -Structure [...] AND Physical Result: Comments: See Note; NOTES: [facility] [address] [place] [address] Wound Ctr History AND Physical 11/02/16 0907 MR#: [id number] Acct: [id number] Name: PERRY ROCA Rep #: [id number] : 1945 71 From: Juan J Edwards [...] Date Recorded By Document 11/02/16 08:41 MW [id number] 11/02/16 08:47 MW 11/02/16 08: 41 Wound [...] Date Recorded By Document 11/02/16 08:55 DV [id number] 11/02/16 09:00 DV 11/02/16 08:55 Wound Center Nurse 2 [Procedure/Treatment] #1 right thigh ucler -Time 08:57 -Correct Patient Yes - Correct Side, Site, Position Yes -Correct Pro cedure Yes -Procedure Performed Yes -Wound/Ulcer Outcome Not Healed -Ulcer Cleansing Rinsed/ Irrigated with Saline -Foul Odor after Cleansing No -Bioengineered Tissue No -Cetacaine [place] No -Bleeding C ontrolled with Pressure -Treatment [...] Date Recorded By Document 11/02/16 08:55 DV [id number] 11/02/16 09:00 DV 11/02/16 08:55 Wound Center [...] AND Physical Result: Comments: See Note; NOTES: [facility] [address] [place] [address] Wound Ctr History AND Physical 10/12/16 0944 MR#: [id number] Acct: [id number] Name: PERRY ROCA Rep #: [id number] : 1945 71 From: Paul Gibson MD [...] Recorded By Document 0 10/12/16 08:47 TM [id number] 10/12/16 09:01 10/12/16 08:47 Wound Center Nurse [...] Date Re corded By Document 10/12/16 09:18 [id number] 10/12/16 09:19 10/12/16 09:18 Wound Center Nurse [...] Saline -Foul Odor after Cleansing No -Cetacaine [place] No -Bleeding Controlled with Pressure -Treatment Response [...] Date Recorded By Document 10/12/16 09:18 DANA [id number] 10/12/16 09:19 DANA 10/12/16 09:18 Wound Center [facility] se 2 #1 right thigh ucler -Time [...] Saline -Foul Odor after Cleansing No -Cetacaine [place] No -Bleeding Controlled with Pressure -Treatment Response [...] - PT Result: Comments: See Note; NOTES: [facility] Physical Therapy [facility] [address] [facility] [place] [address] Fax REHABILITATION SERVICES INITIAL EVALUATION MR#: [id number] Acct: [id number] Name: PERRY CLARK Rep #: [id number] : 1945 71 From: Jono Fowler PT, ATC Referring Dr.: Kelly Vargas DO Status: REG [facility] Insurance: 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 Please let me know if there are questions or concerns regarding this plan of care. Physician Signature: Date: <Electronically signed by Jono Fowler PT, ATC> 05/03/16 1103 CC: Kelly Vargas DO [facility] Signed For Medicare only , by signing this I certify the plan of care. Physicians Signature Date 29-Apr-2016 Shoulder min 2 Views Result: Comments: See Note; NOTES: [facility] Imaging Services [address] [place] [address] Verdana 4d Shoulder min 2 Views MR#: [id number] Acct: [id number] Name: PERRY CLARK #: [id number] : 1945 M 71 From: Jared Lyman DO PCP: Kelly Vargas DO Status: REG CLI Study: Shoulder min 2 Views Date of Exam: 04/29/16 Exam# [id number] Ordering Dr: Kelly Vargas DO UDY: X-RAY [...] Jared Lyman DO at 12:18 EST Tel [phone], Service support [phone], CC: Kelly Vargas DO Finance Admin: Signed 04-Jul-2015 ELECTROCARDIOGRAM, COMPLETE (ECG) (55000) Comments: nsr no acute chg - ekg- scanned into chart Result: [MEASUREMENTS ANALYSIS] Date of Test: 07/04/2015 08:14:52; Heart Rate: 77; OR Interval: 194; QRS: 84; QT Interval: 346; Corrected QT Interval (QTc): 375; P Wave [place]: 42; QRS Wave [place]: -15; T Wave [place] : 51; Blood Pressure: 128/82 [ECG DIAGNOSTIC STATEMENTS] Date of Test: 07/04/2015 08:14:52; Summary: 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 ABNORMAL 06-Feb-2015 Emergency Department Summary Result: Comments: See Note; NOTES: [facility] Medical Records Department [address] [place] [address] Emergency Department Summary MR#: [id number] Acct: [id number] Name: PERRY CLARK Rep #: [id number] : 1945 69 From: Ralph Jimenez MD [...] arrival. He cut his finger with a skull grinder. He is right handed. Tetanus is [...] C: Kelly Arriaga DO T: NTS JOB: [id number] 02/06/15 0829 <Electronically signed by Ralph Jimenez MD> Date Ralph Jimenez MD Cosigner Signature (If Indicated): Date CC: Kelly Vargas DO; Ralph Chang DO Date Dictat ed: 02/03/151523 Date Transcribed: 02/03/151523 Finance Admin: Signed 03-Feb-2015 Discharge Instruction Result: Comments: See Note; NOTES: [facility] Medical Records Department [address] [place] [address] Discharge Instruction 02/03/151519 MR#: [id number] Acct: [id number] Name: PERRY CLARK Rep #: [id number] : 1945 69 From: Ralph Jimenez MD PCP: Kelly Vargas DO Status: REG ER ED Disposition - Plan for ED Patient: Disposition: Home or Assisted [facility] Chief Complaint: Laceration Instructions: ED EXTREMITY [...] signed by Ralph Jimenez MD> Date Ralph Perry Signature (If Indicated): [...] 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, 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, 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: Active No Drug Use Status: [...] Large Weight 218.375 lb :19 Comments: hearing [facility] and had glaucoma test done Pulse 78 [...] Calculated 2.17 m2 Head Circumference 0.00 cm 04-Pra-205522:57 Pulse 64 /min Comments: Pattern: Regular Respiration [...] 0.00 cm Results Date Description Value Details 27-Gjj-983884:07 Microscopic Examination Comments: PATIENT NOT FASTINGPERFORMED BY: [facility] [id number] Bacteria None seen (Normal) Mucus Threads Present (Normal) Crystal Type Calcium Oxalate (Normal) Crystals Present (Abnormal) Cast Type Hyaline casts (Normal) Casts Present {/lpf} (Abnormal) Epithelial Cells (non renal) None seen {/hpf} (Normal) Range: 0 - 10 RBC 0-2 {/hpf} (Normal) Range: 0 - 2 WBC 0-5 {/hpf} (Normal) Range: 0 - 5 08-Jcw-233564:07 URINALYSIS, W/ MICRO (72565) Comments: PATIENT NOT FASTINGPERFORMED BY: [facility] [id number] Microscopic Examination See below: (Normal) Comments: Microscopic was indicated and was performed. Nitrite, Urine Negative (Normal) Urobilinogen,Semi-Qn 0.2 mg/dL (Normal) Range: 0.2-1.0 Bilirubin Negative (Normal) Occult Blood Negative (Normal) Ketones 1+ (Abnormal) Glucose Trace (Abnormal) Protein 1+ (Abnormal) WBC Esterase Negative (Normal) Appearance Clear (Normal) Urine-Color Yellow (Normal) pH 5.0 (Normal) Range: 5.0-7.5 Specific [place] 1.029 (Normal) Range: 1.005-1.030 30-Unl-317476:07 MICROALBUMIN: CREATININE RATIO Comments: PATIENT NOT FASTINGPERFORMED BY: [employer] [id number] (17750) AND (91211) Alb/Creat Ratio 47.7 {mg/g_creat} (Abnormal) Range: 0.0-30.0 Albumin, Urine 99.5 ug/mL (Normal) Creatinine, Urine 208.5 mg/dL (Normal) :57 HgA1C , Office (52792) HgA1C , Office 7.9 % (Abnormal) Range: 4.6 - 7.1 :57 Blood Glucose , Office (68813) Blood Glucose , Office 204 (Normal) 27-Sep-20171:31 Anaerobic & Aerobic Comments: right lower extremity; PATIENT NOT FASTINGPERFORMED BY: [facility] [id number] Information: RIGHT LEG SRC:RL Culture (70192) Result 1 NG36 (Normal) Comments: No growth in 36 - 48 hours. Aerobic Culture Final report (Normal) Result 1 NAAG72 (Normal) Comments: No aerobic or anaerobic growth in 72 hours. Anaerobic Culture Final report (Normal) 54-Fyk-117222:39 TSH (THYROID STIMULATING Comments: PATIENT NOT FASTINGPERFORMED BY: [employer] [id number] BY: [employer]70 [facility] [id number] HORMONE) (40791) TSH 2.660 {uIU/mL} (Normal) Range: 0.450-4.500 24-Adz-765370:39 CBC with auto diff Comments: PATIENT NOT FASTINGPERFORMED BY: [employer] [id number] BY: Ho[employer]la Sjtdnd3443 [facility] [id number] (91883) Immature Grans (Abs) 0.0 {x10E3/uL} (Normal) Range: [...] 4.14-5.80 WBC 9.0 {x10E3/uL} (Normal) Range: 3.4-10.8 39-Qya-232895:39 METABOLIC PANEL, Comments: PATIENT NOT FASTINGPERFORMED BY: [facility] [address] [id number] BY: CB [facility] Yrltdw9767 [facility] [id number] COMPREHENSIVE (15325) ALT (SGPT) 21 [iU]/L (Normal) Range: 0-44 [...] 8-27 Glucose 147 mg/dL (Abnormal) Range: 65-99 84-Ajt-811889:39 LIPOPROTEIN, BLD, BY NMR Comments: PATIENT NOT FASTINGPERFORMED BY: BN [facility] [address] [id number] BY: CB [facility] Ibmlcw8621 [facility] [id number] (47175) LP-IR Score 92 (Abnormal) Comments: INSULIN RESISTANCE MARKER <--Insulin Sensitive Insulin Resistant--> Percentile in Reference PopulationInsulin Resistance ScoreLP-IR Score Low 25th 50th 75th High <27 27 45 63 >63LP-IR Score is inaccurate if patient is non-fasting. .The LP-IR score is a laboratory developed i [facility] that has beenassociated with insulin resistance [...] were developed and their performance characteristicsdetermined by [employer]. These assays have not been cleared by [...] 1600 - 2000 Very High > 2000 08-Pcy-107046:39 CALCIFEDIOL (71633) Comments: PATIENT NOT FASTINGPERFORMED BY: [facility] [address] [id number] BY: [facility] Cpzgcs9071 [facility] [id number] Vitamin D, 25-Hydroxy 37.3 ng/mL (Normal) Range: 30.0-100.0 Comments: Vitamin D deficiency has been defined by the [place] ofMedicine and an Endocrine Society practice guideline as alevel of serum 25-OH vitamin D less than 20 ng/mL (1,2).The Endocrine Society went on to further define vitamin Dinsufficiency as a level between 21 and 29 ng/mL (2).1. IOM ([place] of Medicine). 2010. Dietary reference intakes for calcium and D. [place]: The National Academies Press.2. Sandy MF, Braulio NC, Darren STILL, et al. Evaluation, treatment, and prevention of vitamin D deficiency: an Endocrine Society clinical practice guideline. JCEM. 2010; 96(7):1911-30. :29 HgA1C , Office (51194) HgA1C , Office 7.3 % (Abnormal) Range: 4.6 - 7.1 :29 Blood Glucose , Office (31216) Blood Glucose , Office 151 (Normal) 9-Wbw-934387:31 Microscopic Examination Comments: PATIENT WAS FASTINGPERFORMED BY: [employer] [id number] BY: Hoopla Phtber0844 [facility] [id number] Bacteria Few (Normal) Mucus Threads Present (Normal) Crystal Type Calcium Oxalate (Normal) Crystals Present (Abnormal) Epithelial Cells (non renal) None seen {/hpf} (Normal) Range: 0 - 10 RBC 0-2 {/hpf} (Normal) Range: 0 - 2 WBC 11-30 {/hpf} (Abnormal) Range: 0 - 5 7-Lou-245044:31 LIPOPROTEIN, BLD, BY NMR Comments: PATIENT WAS FASTINGPERFORMED BY: [employer] [id number] BY: Blue Saintlin6370 [facility] [id number] (42042) LP-IR Score 89 (Abnormal) Comments: INSULIN RESISTANCE MARKER <--Insulin Sensitive Insulin Resistant--> Percentile in Reference PopulationInsulin Resistance ScoreLP-IR Score Low 25th 50th 75th High <27 27 45 63 >63LP-IR Score is inaccurate if patient is non-fasting. .The LP-IR score is a laboratory developed i [facility] that has beenassociated with insulin resistance [...] were developed and their performance characteristicsdetermined by [employer]. These assays have not been cleared by [...] - 2000 Very High > 27-May-201710:31 CALCIFEDIOL (02175) Comments: PATIENT WAS FASTINGPERFORMED BY: [facility] [id number] BY: LabCoNew Bridge Medical CenterDauiol8099 [facility] [id number] Vitamin D, 25-Hydroxy 35.2 ng/mL (Normal) Range: 30.0-100.0 Comments: Vitamin D deficiency has been defined by the [place] ofMedicine and an Endocrine Society practice guideline as alevel of serum 25-OH vitamin D less than 20 ng/mL (1,2).The Endocrine Society went on to further define vitamin Dinsufficiency as a level between 21 and 29 ng/mL (2).1. IOM ([place] of Medicine). 2010. Dietary reference intakes for calcium and D. [place]: The National Academies Press.2. Sandy MF, Braulio [place], Darren STILL, et al. Evaluation, treatment, and prevention of vitamin D deficiency: an Endocrine Society clinical practice guideline. JCEM. 2010; 96(7):1911-30. 9-Ovv-165128:31 TSH (80572) Comments: PATIENT WAS FASTINGPERFORMED BY: [employer] [place] [address] [id number] BY: Netops TechnologyNew Bridge Medical CenterWvdtjn7332 [facility] [id number] TSH 2.920 {uIU/mL} (Normal) Range: 0.450-4.500 2-Arx-522874:31 URINALYSIS, W/ MICRO Comments: PATIENT WAS FASTINGPERFORMED BY: [employer] [id number] BY: Hoopla Khibcy3207 [facility] [id number] (58621) Microscopic Examination See below: (Normal) Comments: Microscopic was indicated and was performed. Nitrite, Urine Positive (Abnormal) Urobilinogen,Semi-Qn 0.2 mg/dL (Normal) Range: 0.2-1.0 Bilirubin Negative (Normal) Occult Blood Negative (Normal) Ketones Negative (Normal) Glucose Trace (Abnormal) Protein Trace (Normal) WBC Esterase Negative (Normal) Appearance Clear (Normal) Urine-Color Yellow (Normal) pH 5.0 (Normal) Range: 5.0-7.5 Specific [place] 1.025 (Normal) Range: 1.005-1.030 4-Qwh-588561:31 MICROALBUMIN: CREATININE Comments: PATIENT WAS FASTINGPERFORMED BY: [employer] [id number] BY: [facility]6370 [facility] [id number] RATIO (43075) AND (79637) Alb/Creat Ratio 60.1 {mg/g_creat} (Abnormal) Range: 0.0-30.0 Albumin, Urine 107.3 ug/mL (Normal) Creatinine, Urine 178.6 mg/dL (Normal) 9-Frd-686737:31 METABOLIC PANEL, Comments: PATIENT WAS FASTINGPERFORMED BY: [employer] TechnologyAlexis V[place] [address] [facility] [id number] BY: Netops TechnologyNew Bridge Medical CenterPitduu0897 [facility] [id number] COMPREHENSIVE (55212) ALT (SGPT) 21 [iU]/L (Normal) Range: 0-44 [...] Comments: PATIENT WAS FASTINGPERFORMED BY: BN [facility] Muglrfalnf8689 [facility] [id number] BY: CB [facility] Ucbfga8746 [facility] [id number] (38702) Immature Grans (Abs) 0.0 {x10E3/uL} (Normal) Range: [...] (Normal) Range: 3.4-10.8 :55 HgA1C , Office (16963) HgA1C , Office 8.4 % (Abnormal) Range: 4.6 - 7.1 :55 Blood Glucose , Office (08551) Blood Glucose , Office 197 (Normal) :45 HgA1C , Office (53553) HgA1C , Office 8.1 % (Abnormal) Range: 4.6 - 7.1 :45 Blood Glucose , Office (13688) Blood Glucose , Office 183 (Normal) :30 Culture, Urine Comments: [facility] Fndovrxtpi3428 [facility] [place], [address] CUUR See Note (Normal) Comments: [...] indicates non- formulary drug at [facility]. Approval by Infectious Disease Specialist required before non-formulary drugs may be ordered and/or dispensed. * CLSI guidelines does not recommend testing of cephalosporins. This interpretation is deduced from Beta-lactam/penicillin results. :32 Miscellaneous Lab Procedure Comments: Test(s) Ordered: [id number], TAPENDADOL, LAV TOP, ROOM [facility] [address] [place], [address] [facility] Comments: TEST RESULT UNITS REFERENCE INTERVALTapentadol, WBTapentadol 43.3 ng/mLThis test was developed and its performance characteristicsdetermined by [facility]. It has not LAB (Normal) been cleared or approvedby the Food and Drug Administration.REFERENCE RANGE: Not Established TESTING PERFORMED AT [facility]. ORIGINAL REPORT ON F TEST ILE IN LAB CONTAINS ADDITIONAL TEST SITE INFORMATION. 19-Cto-722357:09 Microscopic Examination Comments: PATIENT WAS FASTINGPERFORMED BY: [facility]6370 [facility] [id number] Bacteria Few (Normal) Mucus Threads Present (Normal) Epithelial Cells (non renal) 0-10 {/hpf} (Normal) Range: 0 - 10 RBC 0-2 {/hpf} (Normal) Range: 0 - 2 WBC 11-30 {/hpf} (Abnormal) Range: 0 - 5 :09 TSH (33879) Comments: PATIENT WAS FASTINGPERFORMED BY: [facility]6370 [facility] [id number] TSH 2.510 {uIU/mL} (Normal) Range: 0.450-4.500 71-Wqh-622040:09 CALCIFEDIOL (35521) Comments: PATIENT WAS FASTINGPERFORMED BY: [facility]6370 [facility] [id number] Vitamin D, 25-Hydroxy 42.9 ng/mL (Normal) Range: 30.0-100.0 Comments: Vitamin D deficiency has been defined by the [place] ofMedicine and an Endocrine Society practice guideline as alevel of serum 25-OH vitamin D less than 20 ng/mL (1,2).The Endocrine Society went on to further define vitamin Dinsufficiency as a level between 21 and 29 ng/mL (2).1. IOM ([place] of Medicine). 2010. Dietary reference intakes for calcium and D. [place]: The National Academies Press.2. Sandy MF, Braulio [place], Darren STILL, et al. Evaluation, treatment, and prevention of vitamin D deficiency: an Endocrine Society clinical practice guideline. JCEM. 2010; 96(7):1911-30. 94-Hon-751975:09 URINALYSIS, W/ MICRO (42540) Comments: PATIENT WAS FASTINGPERFORMED BY: Netops TechnologyNew Bridge Medical CenterCececb6708 [facility] [id number] Microscopic Examination See below: (Normal) Comments: Microscopic was indicated and was performed. Nitrite, Urine Negative (Normal) Urobilinogen,Semi-Qn 0.2 mg/dL (Normal) Range: 0.2-1.0 Bilirubin Negative (Normal) Occult Blood Negative (Normal) Ketones Negative (Normal) Glucose Negative (Normal) Protein 1+ (Abnormal) WBC Esterase 1+ (Abnormal) Appearance Cloudy (Abnormal) Urine-Color Yellow (Normal) pH 7.5 (Normal) Range: 5.0-7.5 Specific [place] 1.024 (Normal) Range: 1.005-1.030 44-Qky-869702:09 MICROALBUMIN: CREATININE RATIO Comments: PATIENT WAS FASTINGPERFORMED BY: Netops TechnologyNew Bridge Medical CenterZcuqkq5283 [facility] [id number] (61399) AND (41985) Microalb/Creat Ratio 49.7 {mg/g_creat} (Abnormal) Range: 0.0-30.0 Microalbumin, Urine 78.3 ug/mL (Normal) Creatinine, Urine 157.5 mg/dL (Normal) :09 METABOLIC PANEL, COMPREHENSIVE Comments: PATIENT WAS FASTINGPERFORMED BY: [facility]6370 [facility] [id number] (99132) ALT (SGPT) 19 [iU]/L (Normal) Range: 0-44 [...] Glucose, Serum 136 mg/dL (Abnormal) Range: 65-99 21-Fkb-382155:09 LIPID PANEL (71415) Comments: PATIENT WAS FASTINGPERFORMED BY: [facility]InAt[facility] [id number] LDL/HDL Ratio 2.5 {ratio_units} (Normal) Range: 0.0-3.6 Comments: LDL/HDL Ratio Men Women 1/2 Avg.Risk 1.0 1.5 Av g.Risk 3.6 3.2 2X Avg.Risk 6.2 5.0 3X Avg.Risk 8.0 6.1 LDL Cholesterol Calc 101 mg/dL (Abnormal) Range: 0-99 VLDL Cholesterol Meche 28 mg/dL (Normal) Range: 5-40 HDL Cholesterol 41 mg/dL (Normal) Triglycerides 139 mg/dL (Normal) Range: 0-149 Cholesterol, Total 170 mg/dL (Normal) Range: 100-199 03-Owx-656647:09 CBC W/AUTO DIFF WBC (77348) Comments: PATIENT WAS FASTINGPERFORMED BY: [facility]InAt[facility] [id number] Immature Grans (Abs) 0.0 {x10E3/uL} (Normal) Range: [...] (Normal) Range: 3.4-10.8 :36 HgA1C , Office (08055) HgA1C , Office 7.3 % (Abnormal) Range: 4.6 - 7.1 :36 Blood Glucose , Office (66017) Blood Glucose , Office 131 (Normal) 79-Ptu-816868:30 Culture, Aerobic, Comments: PERFORMED BY: LabCoNew Bridge Medical CenterFhpfrr4119 [facility] [id number] Information: SRC:RL Bacterial ID (97265) Result 1 MSFGN (Normal) Comments: 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 Aerobic Bacterial Culture Final report (Normal) :15 Miscellaneous Lab Procedure Comments: Comments: [id number]; FISH URINE TEST; 50MLTest(s) Ordered: [id number]; FISH URINE TEST; [facility]WW[facility] [address]jgrgersyp[address] [place], [place], [address] [facility] LAB TEST (Normal) Comments: Scanned image report available in EMR :15 PSA,Total - Annual Screen Comments: [facility] [address] [place], [place], [id number] PSA,TOT SCREEN 0.14 ng/mL (Normal) Range: 0.00-4.00 Comments: This test was performed using the TPSA assay method for theCircle chemistry system. Values obtained with differentassay methods cannot be used interchangably.When changing PSA assays in the course of monitoring apatient, additional sequential testing should be carriedout to confirm baseline values. :15 Testosterone, Serum Total Comments: [facility] [address] [place], [place], [address] Testosterone 396 ng/dL (Normal) Range: 241-827 :45 Culture, Urine Comments: [facility] [address]okcsgm[address] [place], [place], [address] CUUR See Note (Normal) Comments: Urine CultureORGANISM 1: Mixed Gram Positive OrganismsColony Count 25,000-50,000MIX CULTURE Mixed contaminants. Submit a new specimen if indicated. :30 HgA1C , Office (02358) HgA1C , Office 9.5 % (Abnormal) Range: 4.6 - 7.1 :30 Blood Glucose , Office (71940) Blood Glucose , Office 178 (Normal) 95-Xzm-665036:57 Fecal Occult Blood , Office (56387) Fecal Occult Blood , Office (Inhouse) negative (Normal) 10-Jnw-629146:51 POTASSIUM SERUM (90716) Comments: PATIENT NOT FASTINGPERFORMED BY: [facility] Bdegzr9536 [facility] [id number] Information: [id number] Potassium, Serum 4.9 mmol/L (Normal) Range: 3.5-5.2 :23 HgA1C , Office (37060) HgA1C , Office 8.4 % (Abnormal) Range: 4.6 - 7.1 :23 Blood Glucose , Office (63426) Blood Glucose , Office 129 (Normal) :34 TSH (THYROID STIMULATING Comments: PATIENT WAS FASTINGPERFORMED BY: [facility]6370 [facility] [id number] HORMONE) (37773) TSH 1.580 {uIU/mL} (Normal) Range: 0.450-4.500 :34 CALCIFEDIOL (94837) Comments: PATIENT WAS FASTINGPERFORMED BY: [facility]6370 [facility] [id number] Vitamin D, 25-Hydroxy 44.9 ng/mL (Normal) Range: 30.0-100.0 Comments: Vitamin D deficiency has been defined by the [place] ofMedicine and an Endocrine Society practice guideline as alevel of serum 25-OH vitamin D less than 20 ng/mL (1,2).The Endocrine Society went on to further define vitamin Dinsufficiency as a level between 21 and 29 ng/mL (2).1. IOM ([place] of [place]). 2010. Dietary reference intakes for calcium and D. [place]: The National Academies Press.2. Sandy MF, Braulio NC, Darren STILL, et al. Evaluation, treatment, and prevention of vitamin D deficiency: an Endocrine Society clinical practice guideline. JCEM. 2010; 96(7):1911-30. :34 METABOLIC PANEL, COMPREHENSIVE Comments: PATIENT WAS FASTINGPERFORMED BY: [facility] [id number] ([id number]) ALT (SGPT) 20 [iU]/L (Normal) Range: 0-44 [...] mg/dL (Abnormal) Range: 65-99 :34 LIPID PANEL (27087) Comments: PATIENT WAS FASTINGPERFORMED BY: [facility]InAt[facility] [id number] LDL/HDL Ratio 2.4 {ratio_units} (Normal) Range: 0.0-3.6 [...] auto diff Comments: PATIENT WAS FASTINGPERFORMED BY: [employer]6370 [employer] Prote[employer] TechnologiesCount includes the [facility] [id number] Information: [id number] (63582) Immature Grans (Abs) 0.0 {x10E3/uL} (Normal) Range: [...] 4.14-5.80 WBC 8.3 {x10E3/uL} (Normal) Range: 3.4-10.8 7-Cou-153423:22 Microscopic Examination Comments: PATIENT WAS FASTINGPERFORMED BY: BEATA LabCoNew Bridge Medical CenterQyfqfa9232 [facility] [id number] Bacteria Few (Normal) Mucus Threads Present (Normal) Crystal Type Calcium Oxalate (Normal) Crystals Present (Abnormal) Epithelial Cells (non renal) None seen {/hpf} (Normal) Range: 0 - 10 RBC 0-2 {/hpf} (Normal) Range: 0 - 2 WBC 11-30 {/hpf} (Abnormal) Range: 0 - 5 :22 CBC W/AUTO DIFF WBC Comments: PATIENT WAS FASTINGPERFORMED BY: BEATA [facility] [id number] Information: [id number] (25554) Immature Grans (Abs) 0.0 {x10E3/uL} (Normal) Range: [...] 4.14-5.80 WBC 8.9 {x10E3/uL} (Normal) Range: 3.4-10.8 5-Kpj-126255:22 TSH (20708) Comments: PATIENT WAS FASTINGPERFORMED BY: BEATA [facility] [id number] TSH 3.050 {uIU/mL} (Normal) Range: 0.450-4.500 0-Ais-652320:22 URINALYSIS, W/ MICRO (98782) Comments: PATIENT WAS FASTINGPERFORMED BY: [facility] [id number] Microscopic Examination See below: (Normal) Comments: Microscopic was indicated and was performed. Nitrite, Urine Positive (Abnormal) Urobilinogen,Semi-Qn 0.2 mg/dL (Normal) Range: 0.2-1.0 Bilirubin Negative (Normal) Occult Blood Negative (Normal) Ketones Negative (Normal) Glucose Negative (Normal) Protein Negative (Normal) WBC Esterase 1+ (Abnormal) Appearance Clear (Normal) Urine-Color Yellow (Normal) pH 6.0 (Normal) Range: 5.0-7.5 Specific [place] 1.020 (Normal) Range: 1.005-1.030 :22 MICROALBUMIN: CREATININE RATIO Comments: PATIENT WAS FASTINGPERFORMED BY: [facility] [id number] (09685) AND (27878) Microalb/Creat Ratio 23.2 {mg/g_creat} (Normal) Range: 0.0-30.0 Microalbumin, Urine 23.0 ug/mL (Abnormal) Range: 0.0-17.0 Creatinine, Urine 99.2 mg/dL (Normal) Range: 22.0-328.0 :22 METABOLIC PANEL, COMPREHENSIVE Comments: PATIENT WAS FASTINGPERFORMED BY: [facility] [id number] (17655) ALT (SGPT) 23 [iU]/L (Normal) Range: 0-44 [...] 95 mg/dL (Normal) Range: 65-99 :22 CALCIFIDIOL (60271) VIT D 25 Comments: PATIENT WAS FASTINGPERFORMED BY: [facility] [id number] Vitamin D, 25-Hydroxy 55.3 ng/mL (Normal) Range: 30.0-100.0 Comments: Vitamin D deficiency has been defined by the [place] ofDay[facility]'S Hospitalcine and an Endocrine Society practice guideline as alevel of serum 25-OH vitamin D less than 20 ng/mL (1,2).The Endocrine Society went on to further define vitamin Dinsufficiency as a level between 21 and 29 ng/mL (2).1. IOM ([place] of Medicine). 2010. Dietary reference intakes for calcium and D. [place]: The National Academies Press.2. Sandy MF, Braulio NC, Darren STILL, et al. Evaluation, treatment, and prevention of vitamin D deficiency: an Endocrine Society clinical practice guideline. JCEM. 2010; 96(7):1911-30. :22 LIPID PANEL (13454) Comments: PATIENT WAS FASTINGPERFORMED BY: DUHEM70 [facility] [id number] LDL/HDL Ratio 1.9 {ratio_units} (Normal) Range: 0.0-3.6 [...] Range: 100-199 :11 Blood Glucose , Office (28612) Blood Glucose , Office 116 (Normal) :11 HgA1C , Office (61655) HgA1C , Office 8.8 % (Abnormal) Range: 4.6 - 7.1 :17 Hemoglobin Glyclated (HGB A1C) Comments: PATIENT NOT FASTINGPERFORMED BY: LabSenscientNew Bridge Medical CenterXigelo2650 [facility] [id number] (95807) Hemoglobin A1c 8.9 % (Abnormal) Range: 4.8-5.6 Comments: . Pre-diabetes: 5.7 - 6.4 Diabetes: >6.4 Glycemic control for adults with diabetes: <7.0 :17 TSH (34144) Comments: PATIENT NOT FASTINGPERFORMED BY: LabCoNew Bridge Medical CenterAmayww1653 [facility] [id number] TSH 2.960 {uIU/mL} (Normal) Range: 0.450-4.500 :17 METABOLIC PANEL, COMPREHENSIVE Comments: PATIENT NOT FASTINGPERFORMED BY: LabCoNew Bridge Medical CenterQhdljb7590 [facility] [id number] (88394) ALT (SGPT) 25 [iU]/L (Normal) Range: 0-44 [...] Glucose, Serum 113 mg/dL (Abnormal) Range: 65-99 45-Uzk-02179:17 CBC W/AUTO DIFF WBC Comments: PATIENT NOT FASTINGPERFORMED BY: LabCoNew Bridge Medical CenterPirnif9997 [facility] [id number] Information: [id number] (26549) Immature Grans (Abs) OTHER {x10E3/uL} (Normal) Range: [...] {x10E3/uL} (Normal) Range: 3.4-10.8 :17 LIPID PANEL (76222) Comments: PATIENT NOT FASTINGPERFORMED BY: Scout6370 [facility] [id number] LDL/HDL Ratio 3.0 {ratio_units} (Normal) Range: 0.0-3.6 [...] 187 mg/dL (Normal) Range: 100-199 :17 CALCIFIDIOL (42119) VIT D 25 Comments: PATIENT NOT FASTINGPERFORMED BY: LabCo Caunny2202 [facility] [id number] Vitamin D, 25-Hydroxy 56.3 ng/mL (Normal) Range: 30.0-100.0 Comments: Vitamin D deficiency has been defined by the [place] of[place]icine and an Endocrine Society practice guideline as alevel of serum 25-OH vitamin D less than 20 ng/mL (1,2).The Endocrine Society went on to further define vitamin Dinsufficiency as a level between 21 and 29 ng/mL (2).1. IOM ([place] of [place]). 2010. Dietary reference intakes for calcium and D. [place]: The National Academies Press.2. Sandy MF, Braulio DALTON, Darren STILL, et al. Evaluation, treatment, and prevention of vitamin D deficiency: an Endocrine Society clinical practice guideline. JCEM. 2010; 96(7):1911-30. :05 Blood Glucose , Office (75927) Blood Glucose , Office 114 (Normal) :02 HgA1C , Office (67250) HgA1C , Office 8.4 % (Abnormal) Range: 4.6 - 7.1 :02 Blood Glucose , Office (98403) Blood Glucose , Office 241 (Normal) Comments: not fasting :58 HgA1C , Office (69812) HgA1C , Office 7.9 % (Abnormal) Range: 4.6 - 7.1 :58 Blood Glucose , Office (00742) Blood Glucose , Office 135 (Normal) :40 Prostate-Specific Ag, Serum Comments: PATIENT NOT FASTINGPERFORMED BY: DUHEM70 FashiontrotAt[facility] Health [facility] [id number] Information: [id number] ORDER Prostate Specific Ag, 0.1 ng/mL (Normal) Range: 0.0-4.0 Serum Comments: [employer] ECLIA methodology. .According to the [place] [employer], Serum PSA shoulddecrease and remain [...] With Differential/Platelet Comments: PATIENT WAS FASTINGPERFORMED BY: [employer]6370 FashiontrotAtrium Health [facility] [id number] Information: [id number] Immature Grans (Abs) 0.0 {x10E3/uL} (Normal) Range: [...] 4.14-5.80 WBC 7.4 {x10E3/uL} (Normal) Range: 3.4-10.8 60-Aqt-21947:23 Comp. Metabolic Panel (14) Comments: PATIENT WAS FASTINGPERFORMED BY: LabCoNew Bridge Medical CenterTsbrmt7361 [facility] [id number] ALT (SGPT) 16 [iU]/L (Normal) Range: 0-44 [...] % (Abnormal) Comments: PATIENT WAS FASTINGPERFORMED BY: Dazo [facility] [id number] :23 Range: 4.8-5.6 Comments: . Increased risk for diabetes: 5.7 - 6.4 Diabetes: >6.4 Glycemic control for adults with diabetes: <7.0 :23 Lipid Panel With LDL/HDL Comments: PATIENT WAS FASTINGPERFORMED BY: [employer]70 [facility] [id number] Ratio LDL/HDL Ratio 2.2 {ratio_units} (Normal) Range: [...] Randm Ur Comments: PATIENT WAS FASTINGPERFORMED BY: Netops TechnologyNor-Lea General HospitalAxfjfe4331 [facility] [id number] Microalb/Creat Ratio 78.4 {mg/g_creat} (Abnormal) Range: 0.0-30.0 Microalbumin, Urine 66.5 ug/mL (Abnormal) Range: 0.0-17.0 Creatinine, Urine 84.8 mg/dL (Normal) Range: 22.0-328.0 :23 Microscopic Examination Comments: PATIENT WAS FASTINGPERFORMED BY: Netops TechnologyNew Bridge Medical CenterDobsfk4428 [facility] [id number] Bacteria Few (Normal) Mucus Threads Present (Normal) Epithelial Cells (non 0-10 {/hpf} Range: 0 - 10 renal) (Normal) RBC 0-2 {/hpf} (Normal) Range: 0 - 2 WBC 6-10 {/hpf} Range: 0 - 5 (Abnormal) TSH 1.390 {uIU/mL} Comments: PATIENT WAS FASTINGPERFORMED BY: KrossoverApex Medical Center6370 [facility] [id number] :23 (Normal) Range: 0.450-4.500 :23 Urinalysis, Complete Comments: PATIENT WAS FASTINGPERFORMED BY: KrossoverApex Medical Center6370 [facility] [id number] Microscopic Examination See below: (Normal) Comments: Microscopic was indicated and was performed. Nitrite, Urine Positive (Abnormal) Urobilinogen,Semi-Qn 1.0 mg/dL (Normal) Range: 0.0-1.9 Bilirubin Negative (Normal) Occult Blood Negative (Normal) Ketones Negative (Normal) Glucose Negative (Normal) Protein Trace (Normal) WBC Esterase Negative (Normal) Appearance Clear (Normal) Urine-Color Yellow (Normal) pH 7.0 (Normal) Range: 5.0-7.5 Specific [place] 1.017 (Normal) Range: 1.005-1.030 Vitamin D, 25-Hydroxy 65.7 ng/mL (Normal) Comments: PATIENT WAS FASTINGPERFORMED BY: BEATA Joseph6370 Juliann [facility] HospitalLeeAt[facility] [id number] :23 Range: 30.0-100.0 Comments: Vitamin D deficiency has been defined by the [place] of[place]icine and an Endocrine Society practice guideline as alevel of serum 25-OH vitamin D less than 20 ng/mL (1,2).The Endocrine Society went on to further define vitamin Dinsufficiency as a level between 21 and 29 ng/mL (2).1. IOM ([place] of [place]). 2010. Dietary reference intakes for calcium and D. [place]: The National AcademGazelle Semiconductor Press.2. Braulio Evans, Darren STILL, et al. Evaluation, treatment, and prevention of vitamin D deficiency: an Endocrine Society clinical practice guideline. JCEM. 2010; 96(7):1911-. :56 CALCIFIDIOL (24143) VIT D 25 Comments: do in june 2014; PATIENT NOT FASTINGPERFORMED BY: KrossoverNorth [facility] Bnoiwj1542 [facility] [id number] Vitamin D, 25-Hydroxy 23.2 ng/mL (Abnormal) Range: 30.0-100.0 Comments: Vitamin D deficiency has been defined by the [place] of[place]icine and an Endocrine Society practice guideline as alevel of serum 25-OH vitamin D less than 20 ng/mL (1,2).The Endocrine Society went on to further define vitamin Dinsufficiency as a level between 21 and 29 ng/mL (2).1. IOM ([place] of [place]). 2010. Dietary reference intakes for calcium and D. [place]: The National Academies Press.2. Braulio Evans, Darren STILL, et al. Evaluation, treatment, and prevention of vitamin D deficiency: an Endocrine Society clinical practice guideline. JCEM. 2010; 96(7):1911-30. :56 T4, FREE (THYROXINE) Comments: PATIENT NOT FASTINGPERFORMED BY: [facility]6370 [facility] [id number] Information: [id number] (48510) T4,Free(Direct) 1.07 ng/dL (Normal) Range: 0.82-1.77 :56 T3, FREE (TRIDOTHYRONINE) (07708) Comments: PATIENT NOT FASTINGPERFORMED BY: LabNorth [facility] Hospital Ucqmno6871 [facility] [id number] Triiodothyronine,Free,Serum 2.8 pg/mL (Normal) Range: 2.0-4.4 :56 TSH (89744) Comments: PATIENT NOT FASTINGPERFORMED BY: [facility] Jiespj1396 [facility] [id number] TSH 1.790 {uIU/mL} (Normal) Range: 0.450-4.500 :57 HgA1C , Office (69968) HgA1C , Office 7.0 % (Normal) Range: 4.6 - 7.1 :57 Blood Glucose , Office (80519) Blood Glucose , Office 146 (Normal) :24 Microscopic Examination Comments: PATIENT NOT FASTINGPERFORMED BY: BEATA NguyenNorth [facility] Hospital Ychfqs9667 [facility] [id number] Bacteria Few (Normal) Mucus Threads Present (Normal) Epithelial Cells (non renal) 0-10 {/hpf} (Normal) Range: 0 - 10 RBC 0-2 {/hpf} (Normal) Range: 0 - 2 WBC 0-5 {/hpf} (Normal) Range: 0 - 5 :24 Vitamin D Hydroxy (84610) Comments: PATIENT NOT FASTINGPERFORMED BY: LabNorth [facility] Xeyvio6087 [facility]in [place] [id number] Vitamin D, 25-Hydroxy 22.8 ng/mL (Abnormal) Range: 30.0-100.0 Comments: Vitamin D deficiency has been defined by the [place] of[place]icine and an Endocrine Society practice guideline as alevel of serum 25-OH vitamin D less than 20 ng/mL (1,2).The Endocrine Society went on to further define vitamin Dinsufficiency as a level between 21 and 29 ng/mL (2).1. IOM ([place] of [place]). 2010. Dietary reference intakes for calcium and D. [place]: The National Academies Press.2. Sandy MF, Braulio DALTON, Darren STILL, et al. Evaluation, treatment, and prevention of vitamin D deficiency: an Endocrine Society clinical practice guideline. JCEM. 2010; 96(7):1911-30. :24 TSH (02527) Comments: PATIENT NOT FASTINGPERFORMED BY: [employer]70 Fashiontrotin [place] [id number] TSH 0.812 {uIU/mL} (Normal) Range: 0.450-4.500 :24 URINALYSIS, W/ MICRO (89200) Comments: PATIENT NOT FASTINGPERFORMED BY: [employer]6370 FashiontrotAt[facility] Health [facility] [id number] Microscopic Examination See below: (Normal) Comments: Microscopic was indicated and was performed. Microscopic Examination MICRON (Normal) Comments: Microscopic follows if indicated. Nitrite, Urine Negative (Normal) Urobilinogen,Semi-Qn 0.2 mg/dL (Normal) Range: 0.0-1.9 Bilirubin Negative (Normal) Occult Blood Negative (Normal) Ketones Negative (Normal) Glucose Negative (Normal) Protein Negative (Normal) WBC Esterase Negative (Normal) Appearance Clear (Normal) Urine-Color Yellow (Normal) pH 6.5 (Normal) Range: 5.0-7.5 Specific [place] 1.020 (Normal) Range: 1.005-1.030 :24 MICROALBUMIN: CREATININE RATIO Comments: PATIENT NOT FASTINGPERFORMED BY: [employer] Sdkanl6861 FashiontrotAtrium Health [facility] [id number] (67932) AND (33404) Microalb/Creat Ratio 40.9 {mg/g_creat} (Abnormal) Range: 0.0-30.0 Microalbumin, Urine 42.8 ug/mL (Abnormal) Range: 0.0-17.0 Creatinine, Urine 104.7 mg/dL (Normal) Range: 22.0-328.0 :24 METABOLIC PANEL, COMPREHENSIVE Comments: PATIENT NOT FASTINGPERFORMED BY: [employer] Zeucok4907 [facility] [id number] (14202) ALT (SGPT) 19 [iU]/L (Normal) Range: 0-44 [...] mg/dL (Abnormal) Range: 65-99 :24 LIPID PANEL (27144) Comments: PATIENT NOT FASTINGPERFORMED BY: [employer] Wabraf6855 [facility] [id number] LDL/HDL Ratio 1.9 {ratio_units} (Normal) Range: 0.0-3.6 [...] Cholesterol, Total 168 mg/dL (Normal) Range: 100-199 14-Ovm-46781:24 CBC W/AUTO DIFF WBC Comments: PATIENT NOT FASTINGPERFORMED BY: [facility] Bluojf1755 [facility] [id number] Information: [id number] (11984) Immature Grans (Abs) 0.0 {x10E3/uL} (Normal) Range: [...] 3.4-10.8 :54 FECAL OCCULT- Tubes sent home (86805) FECAL OCCULT HGB ASSAY, QUAL, 1-3 SIMULTANEOU negative (Normal) :04 Microscopic Examination Comments: PATIENT WAS FASTINGPERFORMED BY: [employer] Humphreys DazoCount includes the [facility] [id number] Yeast Present (Abnormal) Bacteria Few (Normal) Mucus Threads Present (Normal) Epithelial Cells (non renal) None seen {/hpf} (Normal) Range: 0 - 10 RBC 0-3 {/hpf} (Normal) Range: 0 - 3 WBC 0-5 {/hpf} (Normal) Range: 0 - 5 :52 TSH (97998) Comments: PATIENT WAS FASTINGPERFORMED BY: [employer] Humphreys [facility] HospitalGenbookAtrium Health [facility] [id number] TSH 3.370 {uIU/mL} (Normal) Range: 0.450-4.500 :52 URINALYSIS, W/ MICRO (25544) Comments: PATIENT WAS FASTINGPERFORMED BY: [employer] [facility] [id number] Microscopic Examination See below: (Normal) Nitrite, Urine Negative (Normal) Urobilinogen,Semi-Qn 0.2 mg/dL (Normal) Range: 0.0-1.9 Bilirubin Negative (Normal) Occult Blood Negative (Normal) Ketones Negative (Normal) Glucose Negative (Normal) Protein 1+ (Abnormal) WBC Esterase Negative (Normal) Appearance Clear (Normal) Urine-Color Yellow (Normal) pH 6.0 (Normal) Range: 5.0-7.5 Specific [place] 1.027 (Normal) Range: 1.005-1.030 :52 MICROALBUMIN: CREATININE RATIO Comments: PATIENT WAS FASTINGPERFORMED BY: [employer] [facility] [id number] (30304) AND (90435) Creatinine, Urine 179.7 mg/dL (Normal) Range: 22.0-328.0 Microalb/Creat Ratio 71.7 {mg/g_creat} (Abnormal) Range: 0.0-30.0 Microalbumin, Urine 128.8 ug/mL (Abnormal) Range: 0.0-17.0 :52 METABOLIC PANEL, COMPREHENSIVE Comments: PATIENT WAS FASTINGPERFORMED BY: DUHEM70 [facility] [id number] (12553) ALT (SGPT) 24 [iU]/L (Normal) Range: 0-44 [...] mg/dL (Abnormal) Range: 65-99 :52 LIPID PANEL (76872) Comments: PATIENT WAS FASTINGPERFORMED BY: [employer]6370 [facility] [id number] LDL/HDL Ratio 1.9 {ratio_units} (Normal) Range: 0.0-3.6 LDL Cholesterol Calc 91 mg/dL (Normal) Range: 0-99 VLDL Cholesterol Meche 25 mg/dL (Normal) Range: 5-40 HDL Cholesterol 47 mg/dL (Normal) Comments: According to ATP-III Guidelines, HDL-C >59 mg/dL is considered anegative risk factor for CHD. Cholesterol, Total 163 mg/dL (Normal) Range: 100-199 Triglycerides 124 mg/dL (Normal) Range: 0-149 79-Cjy-29169:52 CBC WITH MANUAL DIFF Comments: PATIENT WAS FASTINGPERFORMED BY: LabCoNew Bridge Medical CenterEsdxvs1302 [facility] [id number] Information: [id number] (90042) Immature Grans (Abs) 0.0 {x10E3/uL} (Normal) Range: [...] 4.14-5.80 WBC 8.8 {x10E3/uL} (Normal) Range: 3.4-10.8 31-Zvb-20740:00 Blood Glucose , Office (96332) Blood Glucose , Office 129 (Normal) Comments: [id number] at home this am :00 HgA1C , Office (40919) HgA1C , Office 7.1 % (Normal) Range: 4.6 - 7.1 :06 Blood Glucose , Office (21382) Blood Glucose , Office 125 (Normal) :06 HgA1C , Office (73431) HgA1C , Office 6.5 % (Normal) Range: 4.6 - 7.1 85-Jpd-466040:23 Microscopic Examination Comments: PATIENT WAS FASTINGPERFORMED BY: Dazo [facility] [id number] Bacteria None seen (Normal) Mucus Threads Present (Normal) Epithelial Cells (non renal) 0-10 {/hpf} (Normal) Range: 0 - 10 RBC 0-3 {/hpf} (Normal) Range: 0 - 3 WBC 0-5 {/hpf} (Normal) Range: 0 - 5 :23 LIPID PANEL (94343) Comments: PATIENT WAS FASTINGPERFORMED BY: [employer]6370 [facility] [id number] LDL/HDL Ratio 1.9 {ratio_units} (Normal) Range: 0.0-3.6 LDL Cholesterol Calc 80 mg/dL (Normal) Range: 0-99 VLDL Cholesterol Meche 26 mg/dL (Normal) Range: 5-40 HDL Cholesterol 43 mg/dL (Normal) Comments: According to ATP-III Guidelines, HDL-C >59 mg/dL is considered anegative risk factor for CHD. Triglycerides 128 mg/dL (Normal) Range: 0-149 Cholesterol, Total 149 mg/dL (Normal) Range: 100-199 :23 TSH (48333) Comments: PATIENT WAS FASTINGPERFORMED BY: Dazo [facility] [id number] TSH 1.190 {uIU/mL} (Normal) Range: 0.450-4.500 :23 URINALYSIS, W/ MICRO (14483) Comments: PATIENT WAS FASTINGPERFORMED BY: [facility]6370 [facility] [id number] Microscopic Examination See below: (Normal) Microscopic Examination MICRON (Normal) Comments: Microscopic follows if indicated. Nitrite, Urine Negative (Normal) Urobilinogen,Semi-Qn 0.2 mg/dL (Normal) Range: 0.0-1.9 Bilirubin Negative (Normal) Occult Blood Negative (Normal) Ketones Trace (Abnormal) Glucose Negative (Normal) Protein Negative (Normal) WBC Esterase Negative (Normal) Appearance Clear (Normal) Urine-Color Yellow (Normal) pH 5.5 (Normal) Range: 5.0-7.5 Specific [place] 1.017 (Normal) Range: 1.005-1.030 09-Qts-595593:23 MICROALBUMIN: CREATININE RATIO Comments: PATIENT WAS FASTINGPERFORMED BY: [facility]6370 [facility] [id number] (79875) AND (04349) Microalb/Creat Ratio 20.4 {mg/g_creat} (Normal) Range: 0.0-30.0 Microalbumin, Urine 18.6 ug/mL (Abnormal) Range: 0.0-17.0 Creatinine, Urine 91.2 mg/dL (Normal) Range: 22.0-328.0 20-Dfj-356146:23 METABOLIC PANEL, COMPREHENSIVE Comments: PATIENT WAS FASTINGPERFORMED BY: [facility]6370 [facility] [id number] (21432) ALT (SGPT) 26 [iU]/L (Normal) Range: 0-44 [...] Glucose, Serum 99 mg/dL (Normal) Range: 65-99 24-Tno-600534:23 CBC WITH MANUAL DIFF Comments: PATIENT WAS FASTINGPERFORMED BY: LabCoNew Bridge Medical CenterPunknf3408 [facility] [id number] Information: [id number] (37522) Immature Grans (Abs) 0.0 {x10E3/uL} (Normal) Range: [...] 4.14-5.80 WBC 7.8 {x10E3/uL} (Normal) Range: 3.4-10.8 06-Iai-540875:57 FECAL OCCULT- Tubes sent home (12205) FECAL OCCULT HGB ASSAY, QUAL, 1-3 SIMULTANEOU negative (Normal) :37 HgA1C , Office (07742) HgA1C , Office 6.5 % (Normal) Range: 4.6 - 7.1 :37 Blood Glucose , Office (60104) Blood Glucose , Office 103 (Normal) :24 Microscopic Examination Comments: PATIENT WAS FASTINGPERFORMED BY: [employer] [facility] [id number] Bacteria Few (Normal) Mucus Threads Present (Normal) Epithelial Cells (non renal) 0-10 {/hpf} (Normal) Range: 0 - 10 RBC 4-10 {/hpf} (Abnormal) Range: 0 - 3 WBC 11-30 {/hpf} (Abnormal) Range: 0 - 5 :24 TSH (54506) Comments: PATIENT WAS FASTINGPERFORMED BY: [employer]op[employer] [facility]Tx [facility] [id number] TSH 2.300 {uIU/mL} (Normal) Range: 0.450-4.500 :24 URINALYSIS, W/ MICRO (41868) Comments: PATIENT WAS FASTINGPERFORMED BY: [employer] It In Person [facility] HospitalD[facility] [place] [id number] Microscopic Examination See below: (Normal) Nitrite, Urine Positive (Abnormal) Urobilinogen,Semi-Qn 0.2 mg/dL (Normal) Range: 0.0-1.9 Bilirubin Negative (Normal) Occult Blood 1+ (Abnormal) Ketones Trace (Abnormal) Glucose Negative (Normal) Protein Trace (Normal) WBC Esterase 2+ (Abnormal) Appearance Clear (Normal) Urine-Color Yellow (Normal) pH 5.5 (Normal) Range: 5.0-7.5 Specific [place] 1.026 (Normal) Range: 1.005-1.030 31-Aug-20129:24 METABOLIC PANEL, COMPREHENSIVE Comments: PATIENT WAS FASTINGPERFORMED BY: BEATA LabCoNew Bridge Medical CenterOumthk7225 [facility] [id number] (39531) ALT (SGPT) 31 [iU]/L (Normal) Range: 0-44 [...] DIFF Comments: PATIENT WAS FASTINGPERFORMED BY: BEATA LabCoNor-Lea General HospitalUwlpnd4304 [facility] [id number] Information: [id number] (30408) Immature Grans (Abs) 0.0 {x10E3/uL} (Normal) Range: [...] CREATININE RATIO Comments: PATIENT WAS FASTINGPERFORMED BY: LabCoNew Bridge Medical CenterTkmviv3746 [facility] [id number] (52415) AND (45585) Microalb/Creat Ratio 41.7 {mg/g_creat} (Abnormal) Range: 0.0-30.0 Microalbumin, Urine 73.8 ug/mL (Abnormal) Range: 0.0-17.0 Creatinine, Urine 176.9 mg/dL (Normal) Range: 22.0-328.0 :24 LIPID PANEL (61837) Comments: PATIENT WAS FASTINGPERFORMED BY: LabCoNew Bridge Medical CenterNdgxxa5784 [facility] [id number] LDL/HDL Ratio 2.2 {ratio_units} (Normal) Range: 0.0-3.6 LDL Cholesterol Calc 83 mg/dL (Normal) Range: 0-99 VLDL Cholesterol Meche 27 mg/dL (Normal) Range: 5-40 Cholesterol, Total 147 mg/dL (Normal) Range: 100-199 HDL Cholesterol 37 mg/dL (Abnormal) Comments: According to ATP-III Guidelines, HDL-C >59 mg/dL is considered anegative risk factor for CHD. Triglycerides 136 mg/dL (Normal) Range: 0-149 :06 HgA1C , Office (91412) HgA1C , Office 6.6 % (Normal) Range: 4.6 - 7.1 :06 Blood Glucose , Office (81826) Blood Glucose , Office 98 (Normal) :59 Blood Glucose , Office (29793) Blood Glucose , Office 235 (Normal) 7-Svg-262579:04 TSH (72745) Comments: PATIENT WAS FASTINGPERFORMED BY: [facility]CoNew [facility] CenterJlxzjy5846 [facility] [id number] TSH 1.710 {uIU/mL} (Normal) Range: 0.450-4.500 :04 METABOLIC PANEL, COMPREHENSIVE Comments: PATIENT WAS FASTINGPERFORMED BY: [facility]CoNew Bridge Medical CenterMdgwpd3079 [facility] [id number] (71933) ALT (SGPT) 30 [iU]/L (Normal) Range: 0-44 [...] Glucose, Serum 196 mg/dL (Abnormal) Range: 65-99 0-Clu-513651:04 LIPID PANEL (06442) Comments: PATIENT WAS FASTINGPERFORMED BY: [facility]CoNew [facility] Medical CenterFlxoxv2681 [facility] [id number] LDL/HDL Ratio 2.3 {ratio_units} (Normal) Range: 0.0-3.6 [...] MANUAL DIFF Comments: PATIENT WAS FASTINGPERFORMED BY: [facility]6370 [facility] [id number] Information: [id number] (88227) Immature Grans (Abs) 0.0 {x10E3/uL} (Normal) Range: [...] (Normal) Range: 4.0-10.5 :59 HgA1C , Office (75745) HgA1C , Office 7.2 % (Abnormal) Range: 4.6 - 7.1 6-Sep-37149:02 HgA1C , Office (60877) HgA1C , Office 8.3 % (Abnormal) Range: 4.6 - 7.1 :02 Blood Glucose , Office (52177) Blood Glucose , Office 162 (Normal) :50 Microscopic Examination Comments: PATIENT NOT FASTINGPERFORMED BY: [employer] [facility] [id number] Bacteria Few (Normal) Mucus Threads Present (Normal) Epithelial Cells (non renal) None seen {/hpf} (Normal) Range: 0 - 10 RBC 0-3 {/hpf} (Normal) Range: 0 - 3 WBC 6-10 {/hpf} (Abnormal) Range: 0 - 5 :11 HgA1C , Office (88998) HgA1C , Office 6.9 % (Normal) Range: 4.6 - 7.1 :11 Blood Glucose , Office (43262) Blood Glucose , Office 115 (Normal) :50 MICROALBUMIN: CREATININE RATIO Comments: PATIENT NOT FASTINGPERFORMED BY: [facility] Center6370 [facility] [id number] (90185) AND (54816) Microalb/Creat Ratio 20.0 {mg/g_creat} (Normal) Range: 0.0-30.0 Creatinine, Urine 97.5 mg/dL (Normal) Range: 22.0-328.0 Microalbumin, Urine 19.5 ug/mL (Abnormal) Range: 0.0-17.0 :50 URINALYSIS, W/ MICRO Comments: PATIENT NOT FASTINGPERFORMED BY: [facility] Center6370 [facility] [id number] Information: [id number] (65183) Microscopic Examination See below: (Normal) Microscopic Examination MICRON (Normal) Comments: Microscopic follows if indicated. Nitrite, Urine Negative (Normal) Urobilinogen,Semi-Qn 0.2 mg/dL (Normal) Range: 0.0-1.9 Bilirubin Negative (Normal) Occult Blood Negative (Normal) Ketones Negative (Normal) Glucose Negative (Normal) Protein Negative (Normal) WBC Esterase Negative (Normal) Appearance Clear (Normal) Urine-Color Yellow (Normal) pH 6.0 (Normal) Range: 5.0-7.5 Specific [place] 1.017 (Normal) Range: 1.005-1.030 87-Fmv-344360:03 TSH (19756) Comments: PATIENT WAS FASTINGPERFORMED BY: [facility]6370 [facility] [id number] TSH 3.030 {uIU/mL} (Normal) Range: 0.450-4.500 51-Jkn-816018:03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 The patient does not have durable power of safety instructor or living will. Other providers contributing to [...] patient does not have durable power of safety instructor or living will. The patient has noticed [...] patient does not have durable power of safety instructor or living will. The patient has noticed [...] patient does not have durable power of safety instructor or living will. The patient has noticed [...] of Hypertension (796.2) [facility] Payers [facility] [place]; eduar guarantor
--- OUTSIDE RECORDS SUMMARY | 2018-07-17 07:44 | XMS RPT_ITS | Continuity of Care Document ---
:1945 Author Organization [facility] Address [address] [facility] [address] [place] [address] Phone Care Team Providers Name Role Phone Kelly Vargas DO Unavailable Mamie Clau Unavailable [facility] Wound Unavailable Donaldo Burnham MD Unavailable [facility] Unavailable Luis, SCHUYLER Robb Unavailable Unavailable [...] PRYOR Daphnie Start : 15-Apr-2017 Active Pen Morris /16 31G X 5 MM Miscellaneous 1 [...] days Quantity: 1 {Box} Refills: 7 Ordered:01-Jul-2017 Shamra Vargas DO, DO, Kathleen Start : 01-Jul-2017 [...] End : 09-Jan-2018 Inactive Comments:changed by jahaira 03/29/16[facility] Phentermine HCl 37.5 MG Oral Tablet [...] 10-Apr-2015 End : 10-Apr-2015 Inactive Comments:DX: 250.02NPI: [id number] TRAMADOL HCL, 50MG (Oral Tablet) 1 q [...] Quantity: 30 {Tablet} Refills: 3 Ordered:06-Oct-2016 Gayle Adnres LPN Start : 11-Sep-2015 End : 06-Oct-2016 [...] AND Physical Result: Comments: See Note; NOTES: [facility] [address] [place] [address] Wound Ctr History AND Physical 07/25/17 1656 MR#: [id number] Acct: [id number] Name: PERRY ROCA Rep #: [id number] : 1945 71 From: Juan J Edwards [...] Date Recorded By Document 11/16/16 16:26 DL [id number] 11/16/16 16:29 DL 11/16/16 16:26 Wound Center Nurse 1 [Ulcer Assessment] #1 right thigh ucler -Current Size (cm) - Length 0 -Current Size (cm) - Width 0 -Current Size (cm) - Depth 0 -Total Squa re Cm 0 -Photo Taken Yes -Epithelialization Large 67-100% -Exudate Amt None Present (0 %) -Granulation Amt Large (67-100%) -Granulation Quality Ferguson -Necrosis Amt None Present (0 %) -Structure [...] AND Physical Result: Comments: See Note; NOTES: [facility] [address] [place] [address] Wound Ctr History AND Physical 11/02/16 0907 MR#: [id number] Acct: [id number] Name: PERRY ROCA Rep #: [id number] : 1945 71 From: Juan J Edwards [...] Date Recorded By Document 11/02/16 08:41 MW [id number] 11/02/16 08:47 MW 11/02/16 08: 41 Wound [...] Date Recorded By Document 11/02/16 08:55 DV [id number] 11/02/16 09:00 DV 11/02/16 08:55 Wound Center Nurse 2 [Procedure/Treatment] #1 right thigh ucler -Time 08:57 -Correct Patient Yes - Correct Side, Site, Position Yes -Correct Pro cedure Yes -Procedure Performed Yes -Wound/Ulcer Outcome Not Healed -Ulcer Cleansing Rinsed/ Irrigated with Saline -Foul Odor after Cleansing No -Bioengineered Tissue No -Cetacaine [place] No -Bleeding C ontrolled with Pressure -Treatment [...] Date Recorded By Document 11/02/16 08:55 DV [id number] 11/02/16 09:00 DV 11/02/16 08:55 Wound Center [...] AND Physical Result: Comments: See Note; NOTES: [facility] [address] [facility] [place] [address] Wound Ctr History AND Physical 10/12/1644 MR#: [id number] Acct: [id number] Name: PERRY ROCA Rep #: [id number] : 1945 71 From: Paul Gibson MD [...] Recorded By Document 0 10/12/16 08:47 TM [id number] 10/12/16 09:01 10/12/16 08:47 Wound Center Nurse [...] Date Re corded By Document 10/12/16 09:18 [id number] 10/12/16 09:19 10/12/16 09:18 Wound Center Nurse [...] Saline -Foul Odor after Cleansing No -Cetacaine [place] No -Bleeding Controlled with Pressure -Treatment Response [...] Date Recorded By Document 10/12/16 09:18 DANA [id number] 10/12/16 09:19 DANA 10/12/16 09:18 Wound Center [...] Saline -Foul Odor after Cleansing No -Cetacaine [place] No -Bleeding Controlled with Pressure -Treatment Response [...] - PT Result: Comments: See Note; NOTES: [facility] Physical Therapy [facility] [address] [address] [facility] [place] [address] Fax REHABILITATION SERVICES INITIAL EVALUATION MR#: [id number] Acct: [id number] Name: PERRY CLARK Rep #: [id number] : 1945 71 From: Jono Fowler PT, ATC Referring Dr.: Kelly Vargas DO Status: REG [facility] Insurance: [facility] Patient's Visit Information PERRY CLARK [...] shoulder pain. 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 Please let me know if there are questions or concerns regarding this plan of care. Physician Signature: Date: <Electronically signed by Jono Fowler PT, ATC> 05/03/16 1103 CC: Kelly Vargas DO [facility] Signed For Medicare only , by signing this I certify the plan of care. Physicians Signature Date 29-Apr-2016 Shoulder min 2 Views Result: Comments: See Note; NOTES: [facility] Imaging Services [address] [place] [address] Verdana 4d Shoulder min 2 Views MR#: [id number] Acct: [id number] Name: PERRY CLARK #: [id number] : 1945 M 71 From: Jared Lyman DO PCP: Kelly Vargas DO Status: REG CLI Study: Shoulder min 2 Views Date of Exam: 04/29/16 Exam# [id number] Ordering Dr: Kelly Vargas DO UDY: X-RAY [...] Jared Lyman DO at 12:18 EST Tel [phone], Service support [phone], CC: Kelly Vargas DO Placing Judge: Signed 04-Jul-2015 ELECTROCARDIOGRAM, COMPLETE (ECG) (81670) Comments: nsr no acute chg - ekg- scanned into chart Result: [MEASUREMENTS ANALYSIS] Date of Test: 07/04/2015 08:14:52; Heart Rate: 77; AL Interval: 194; QRS: 84; QT Interval: 346; Corrected QT Interval (QTc): 375; P Wave [place]: 42; QRS Wave [place]: -15; T Wave [place] : 51; Blood Pressure: 128/82 [ECG DIAGNOSTIC STATEMENTS] Date of Test: 07/04/2015 08:14:52; Summary: 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 ABNORMAL 06-Feb-2015 Emergency Department Summary Result: Comments: See Note; NOTES: [facility] Medical Records Department [address] [place] [address] Emergency Department Summary MR#: [id number] Acct: [id number] Name: PERRY CLARK Rep #: [id number] : 1945 69 From: Ralph Jimenez MD [...] arrival. He cut his finger with a flute grinder. He is right handed. Tetanus is [...] C: Kelly Arriaga DO T: NTS JOB: [id number] 02/06/15 0829 <Electronically signed by Ralph Jimenez MD> Date Ralph Jimenez MD Cosigner Signature (If Indicated): Date CC: Kelly Vargas DO; Ralph Chang DO Date Dictat ed: 02/03/151523 Date Transcribed: 02/03/151523 Placing Judge: Signed 03-Feb-2015 Discharge Instruction Result: Comments: See Note; NOTES: [facility] Medical Records Department [address] [place] [address] Discharge Instruction 02/03/151519 MR#: [id number] Acct: [id number] Name: PERRY CLARK Rep #: [id number] : 1945 69 From: Ralph Jimenez MD [...] 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, 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, 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 No Drug Use Status: [...] kg/m2 Body Surface Area Calculated 2.03 m2 70-Amn-86880:46 Pulse 81 /min Comments: Pattern: Regular Respiration [...] Large Weight 218.375 lb :19 Comments: hearing [facility] and had glaucoma test done [...] Calculated 2.17 m2 Head Circumference 0.00 cm 68-Pob-465547:57 Pulse 64 /min Comments: Pattern: Regular Respiration [...] 0.00 cm Results Date Description Value Details 31-Ycc-655865:07 Microscopic Examination Comments: PATIENT NOT FASTINGPERFORMED BY: [facility] [id number] Bacteria None seen (Normal) Mucus Threads Present (Normal) Crystal Type Calcium Oxalate (Normal) Crystals Present (Abnormal) Cast Type Hyaline casts (Normal) Casts Present {/lpf} (Abnormal) Epithelial Cells (non renal) None seen {/hpf} (Normal) Range: 0 - 10 RBC 0-2 {/hpf} (Normal) Range: 0 - 2 WBC 0-5 {/hpf} (Normal) Range: 0 - 5 80-Wjz-341236:07 URINALYSIS, W/ MICRO (95457) Comments: PATIENT NOT FASTINGPERFORMED BY: [employer] [id number] Microscopic Examination See below: (Normal) Comments: Microscopic was indicated and was performed. Nitrite, Urine Negative (Normal) Urobilinogen,Semi-Qn 0.2 mg/dL (Normal) Range: 0.2-1.0 Bilirubin Negative (Normal) Occult Blood Negative (Normal) Ketones 1+ (Abnormal) Glucose Trace (Abnormal) Protein 1+ (Abnormal) WBC Esterase Negative (Normal) Appearance Clear (Normal) Urine-Color Yellow (Normal) pH 5.0 (Normal) Range: 5.0-7.5 Specific [place] 1.029 (Normal) Range: 1.005-1.030 80-Zkf-475637:07 MICROALBUMIN: CREATININE RATIO Comments: PATIENT NOT FASTINGPERFORMED BY: [place] [employer] [facility] [id number] (66437) AND (33508) Alb/Creat Ratio 47.7 {mg/g_creat} (Abnormal) Range: 0.0-30.0 Albumin, Urine 99.5 ug/mL (Normal) Creatinine, Urine 208.5 mg/dL (Normal) :57 HgA1C , Office (70308) HgA1C , Office 7.9 % (Abnormal) Range: 4.6 - 7.1 :57 Blood Glucose , Office (32606) Blood Glucose , Office 204 (Normal) 27-Sep-20171:31 Anaerobic & Aerobic Comments: right lower extremity; PATIENT NOT FASTINGPERFORMED BY: [employer] [facility] [id number] Information: RIGHT LEG SRC:RL Culture (53522) Result 1 NG36 (Normal) Comments: No growth in 36 - 48 hours. Aerobic Culture Final report (Normal) Result 1 NAAG72 (Normal) Comments: No aerobic or anaerobic growth in 72 hours. Anaerobic Culture Final report (Normal) 81-Myd-176966:39 TSH (THYROID STIMULATING Comments: PATIENT NOT FASTINGPERFORMED BY: [employer] [id number] BY: [place]70 [facility] [id number] HORMONE) (79009) TSH 2.660 {uIU/mL} (Normal) Range: 0.450-4.500 41-Gsk-312526:39 CBC with auto diff Comments: PATIENT NOT FASTINGPERFORMED BY: [employer] [id number] BY: [employer] [facility] [id number] (36822) Immature Grans (Abs) 0.0 {x10E3/uL} (Normal) Range: [...] 4.14-5.80 WBC 9.0 {x10E3/uL} (Normal) Range: 3.4-10.8 54-Vsz-368670:39 METABOLIC PANEL, Comments: PATIENT NOT FASTINGPERFORMED BY: BN [facility] [address] [id number] BY: CB [facility] Losxox5161 [facility] [id number] COMPREHENSIVE (38543) ALT (SGPT) 21 [iU]/L (Normal) Range: 0-44 [...] 8-27 Glucose 147 mg/dL (Abnormal) Range: 65-99 41-Uro-505226:39 LIPOPROTEIN, BLD, BY NMR Comments: PATIENT NOT FASTINGPERFORMED BY: BN [facility] [address] [id number] BY: CB [facility] Puuuqa2643 [facility] [id number] (65771) LP-IR Score 92 (Abnormal) Comments: INSULIN RESISTANCE MARKER <--Insulin Sensitive Insulin Resistant--> Percentile in Reference PopulationInsulin Resistance ScoreLP-IR Score Low 25th 50th 75th High <27 27 45 63 >63LP-IR Score is inaccurate if patient is non-fasting. .The LP-IR score is a laboratory developed i [facility] that has beenassociated with insulin [...] were developed and their performance characteristicsdetermined by LipZAOZAO. These assays have not been cleared by [...] 1600 - 2000 Very High > 2000 09-Yma-211379:39 CALCIFEDIOL (06729) Comments: PATIENT NOT FASTINGPERFORMED BY: [facility] [address] [id number] BY: [facility] Dbxxcd1367 [facility] [id number] Vitamin D, 25-Hydroxy 37.3 ng/mL (Normal) Range: 30.0-100.0 Comments: Vitamin D deficiency has been defined by the Dexter ofMedicine and an Endocrine Society practice guideline as alevel of serum 25-OH vitamin D less than 20 ng/mL (1,2).The Endocrine Society went on to further define vitamin Dinsufficiency as a level between 21 and 29 ng/mL (2).1. IOM (Dexter of Medicine). 2010. Dietary reference intakes for calcium and D. [place]: The National Academies Press.2. Sandy MF, Braulio DALTON, Darren STILL, et al. Evaluation, treatment, and prevention of vitamin D deficiency: an Endocrine Society clinical practice guideline. JCEM. 2010; 96(7):1911-30. :29 HgA1C , Office (90676) HgA1C , Office 7.3 % (Abnormal) Range: 4.6 - 7.1 :29 Blood Glucose , Office (09754) Blood Glucose , Office 151 (Normal) 5-Luu-430269:31 Microscopic Examination Comments: PATIENT WAS FASTINGPERFORMED BY: [employer] [id number] BY: HALKARlin6370 [facility] [id number] Bacteria Few (Normal) Mucus Threads Present (Normal) Crystal Type Calcium Oxalate (Normal) Crystals Present (Abnormal) Epithelial Cells (non renal) None seen {/hpf} (Normal) Range: 0 - 10 RBC 0-2 {/hpf} (Normal) Range: 0 - 2 WBC 11-30 {/hpf} (Abnormal) Range: 0 - 5 7-Cuw-830833:31 LIPOPROTEIN, BLD, BY NMR Comments: PATIENT WAS FASTINGPERFORMED BY: [employer] [id number] BY: HALKARlin6370 [facility] [id number] (26558) LP-IR Score 89 (Abnormal) Comments: INSULIN RESISTANCE MARKER <--Insulin Sensitive Insulin Resistant--> Percentile in Reference PopulationInsulin Resistance ScoreLP-IR Score Low 25th 50th 75th High <27 27 45 63 >63LP-IR Score is inaccurate if patient is non-fasting. .The LP-IR score is a laboratory developed i [facility] that has beenassociated with insulin [...] were developed and their performance characteristicsdetermined by LipZAOZAO. These assays have not been cleared by [...] - 2000 Very High > 27-May-201710:31 CALCIFEDIOL (45949) Comments: PATIENT WAS FASTINGPERFORMED BY: LabWaggl[address] [id number] BY: [facility] [address] Ross StreetDublin [place] [id number] Vitamin D, 25-Hydroxy 35.2 ng/mL (Normal) Range: 30.0-100.0 Comments: Vitamin D deficiency has been defined by the Dexter ofMedicine and an Endocrine Society practice guideline as alevel of serum 25-OH vitamin D less than 20 ng/mL (1,2).The Endocrine Society went on to further define vitamin Dinsufficiency as a level between 21 and 29 ng/mL (2).1. IOM (Dexter of Medicine). 2010. Dietary reference intakes for calcium and D. [place]: The National Academies Press.2. Sandy MF, Braulio DALTON, Darren STILL, et al. Evaluation, treatment, and prevention of vitamin D deficiency: an Endocrine Society clinical practice guideline. JCEM. 2010; 96(7):1911-30. 5-Fjf-450915:31 TSH (90081) Comments: PATIENT WAS FASTINGPERFORMED BY: [employer] [id number] BY: [employer] Pwfhop6662 [facility] [id number] TSH 2.920 {uIU/mL} (Normal) Range: 0.450-4.500 4-Ljd-937187:31 URINALYSIS, W/ MICRO Comments: PATIENT WAS FASTINGPERFORMED BY: [facility] [id number] BY: [employer] Avudzb8044 [facility] [id number] (78582) Microscopic Examination See below: (Normal) Comments: Microscopic was indicated and was performed. Nitrite, Urine Positive (Abnormal) Urobilinogen,Semi-Qn 0.2 mg/dL (Normal) Range: 0.2-1.0 Bilirubin Negative (Normal) Occult Blood Negative (Normal) Ketones Negative (Normal) Glucose Trace (Abnormal) Protein Trace (Normal) WBC Esterase Negative (Normal) Appearance Clear (Normal) Urine-Color Yellow (Normal) pH 5.0 (Normal) Range: 5.0-7.5 Specific [place] 1.025 (Normal) Range: 1.005-1.030 3-Gyl-173466:31 MICROALBUMIN: CREATININE Comments: PATIENT WAS FASTINGPERFORMED BY: [employer] [facility] InternationalDavid [place] [address] [facility] [id number] BY: [facility]6370 [facility] [id number] RATIO (04567) AND (59233) Alb/Creat Ratio 60.1 {mg/g_creat} (Abnormal) Range: 0.0-30.0 Albumin, Urine 107.3 ug/mL (Normal) Creatinine, Urine 178.6 mg/dL (Normal) 7-Knx-615773:31 METABOLIC PANEL, Comments: PATIENT WAS FASTINGPERFORMED BY: [employer] InternationalDavid [place] [address] [facility] [id number] BY: [employer] InternationalRobert [facility] SomersetBosgsn5708 [facility] [id number] COMPREHENSIVE (52449) ALT (SGPT) 21 [iU]/L (Normal) Range: 0-44 [...] Comments: PATIENT WAS FASTINGPERFORMED BY: BN [facility] Lkdrwcytfn1870 [facility] [id number] BY: CB [facility] Oamdql3369 [facility] [id number] (12445) Immature Grans (Abs) 0.0 {x10E3/uL} (Normal) Range: [...] (Normal) Range: 3.4-10.8 :55 HgA1C , Office (94934) HgA1C , Office 8.4 % (Abnormal) Range: 4.6 - 7.1 :55 Blood Glucose , Office (91553) Blood Glucose , Office 197 (Normal) :45 HgA1C , Office (45494) HgA1C , Office 8.1 % (Abnormal) Range: 4.6 - 7.1 :45 Blood Glucose , Office (22427) Blood Glucose , Office 183 (Normal) :30 Culture, Urine Comments: [facility] Skgywsomhc0388 [facility] [place], [address] CUUR See Note (Normal) Comments: [...] <=0.5 S(NF) indicates non- formulary drug at [facility]. Approval by Infectious Disease Specialist required before non-formulary drugs may be ordered and/or dispensed. * CLSI guidelines does not recommend testing of cephalosporins. This interpretation is deduced from Beta-lactam/penicillin results. :32 Miscellaneous Lab Procedure Comments: Test(s) Ordered: [id number], TAPENDADOL, LAV TOP, ROOM [facility] Fxxxmvgfix[address] [place], [address] [facility] Comments: TEST RESULT UNITS REFERENCE INTERVALTapentadol, WBTapentadol 43.3 ng/mLThis test was developed and its performance characteristicsdetermined by [facility]. It has not LAB (Normal) been cleared or approvedby the Food and Drug Administration.REFERENCE RANGE: Not Established TESTING PERFORMED AT [facility]. ORIGINAL REPORT ON F TEST ILE IN LAB CONTAINS ADDITIONAL TEST SITE INFORMATION. 64-Epi-730419:09 Microscopic Examination Comments: PATIENT WAS FASTINGPERFORMED BY: [facility]6370 [facility] [id number] Bacteria Few (Normal) Mucus Threads Present (Normal) Epithelial Cells (non renal) 0-10 {/hpf} (Normal) Range: 0 - 10 RBC 0-2 {/hpf} (Normal) Range: 0 - 2 WBC 11-30 {/hpf} (Abnormal) Range: 0 - 5 00-Ays-397230:09 TSH (10726) Comments: PATIENT WAS FASTINGPERFORMED BY: [facility]6370 [facility] [id number] TSH 2.510 {uIU/mL} (Normal) Range: 0.450-4.500 54-Kub-042896:09 CALCIFEDIOL (55046) Comments: PATIENT WAS FASTINGPERFORMED BY: [facility]6370 [facility] [id number] Vitamin D, 25-Hydroxy 42.9 ng/mL (Normal) Range: 30.0-100.0 Comments: Vitamin D deficiency has been defined by the Dexter ofMedicine and an Endocrine Society practice guideline as alevel of serum 25-OH vitamin D less than 20 ng/mL (1,2).The Endocrine Society went on to further define vitamin Dinsufficiency as a level between 21 and 29 ng/mL (2).1. IOM (Dexter of Medicine). 2010. Dietary reference intakes for calcium and D. [place]: The National Academies Press.2. Sandy MF, Braulio [place], Darren STILL, et al. Evaluation, treatment, and prevention of vitamin D deficiency: an Endocrine Society clinical practice guideline. JCEM. 2010; 96(7):1911-30. 85-Vlr-173581:09 URINALYSIS, W/ MICRO (19726) Comments: PATIENT WAS FASTINGPERFORMED BY: [employer] InternationalRobert Wood Johnson [facility] SomersetXkgxcg6806 [facility] [id number] Microscopic Examination See below: (Normal) Comments: Microscopic was indicated and was performed. Nitrite, Urine Negative (Normal) Urobilinogen,Semi-Qn 0.2 mg/dL (Normal) Range: 0.2-1.0 Bilirubin Negative (Normal) Occult Blood Negative (Normal) Ketones Negative (Normal) Glucose Negative (Normal) Protein 1+ (Abnormal) WBC Esterase 1+ (Abnormal) Appearance Cloudy (Abnormal) Urine-Color Yellow (Normal) pH 7.5 (Normal) Range: 5.0-7.5 Specific [place] 1.024 (Normal) Range: 1.005-1.030 05-Csl-146320:09 MICROALBUMIN: CREATININE RATIO Comments: PATIENT WAS FASTINGPERFORMED BY: [employer] InternationalRobert Wood Johnson [facility] SomersetNlfytp9280 [facility] [id number] (51159) AND (64812) Microalb/Creat Ratio 49.7 {mg/g_creat} (Abnormal) Range: 0.0-30.0 Microalbumin, Urine 78.3 ug/mL (Normal) Creatinine, Urine 157.5 mg/dL (Normal) :09 METABOLIC PANEL, COMPREHENSIVE Comments: PATIENT WAS FASTINGPERFORMED BY: [employer] InternationalRobert Wood Johnson [facility] SomersetBfpztb3580 [facility] [id number] (76007) ALT (SGPT) 19 [iU]/L (Normal) Range: 0-44 [...] Glucose, Serum 136 mg/dL (Abnormal) Range: 65-99 69-Yrc-856697:09 LIPID PANEL (07948) Comments: PATIENT WAS FASTINGPERFORMED BY: [employer] [employer] [place] [id number] LDL/HDL Ratio 2.5 {ratio_units} (Normal) Range: 0.0-3.6 Comments: LDL/HDL Ratio Men Women 1/2 Avg.Risk 1.0 1.5 Av g.Risk 3.6 3.2 2X Avg.Risk 6.2 5.0 3X Avg.Risk 8.0 6.1 LDL Cholesterol Calc 101 mg/dL (Abnormal) Range: 0-99 VLDL Cholesterol Meche 28 mg/dL (Normal) Range: 5-40 HDL Cholesterol 41 mg/dL (Normal) Triglycerides 139 mg/dL (Normal) Range: 0-149 Cholesterol, Total 170 mg/dL (Normal) Range: 100-199 45-Zyj-157165:09 CBC W/AUTO DIFF WBC (89545) Comments: PATIENT WAS FASTINGPERFORMED BY: [employer]70 [facility] [id number] Immature Grans (Abs) 0.0 {x10E3/uL} (Normal) Range: [...] (Normal) Range: 3.4-10.8 :36 HgA1C , Office (09096) HgA1C , Office 7.3 % (Abnormal) Range: 4.6 - 7.1 :36 Blood Glucose , Office (34183) Blood Glucose , Office 131 (Normal) 96-Sne-566940:30 Culture, Aerobic, Comments: PERFORMED BY: [facility]CoRobert [facility] SomersetQdrilf3534 [facility] [id number] Information: SRC:RL Bacterial ID (56479) Result 1 MSFGN (Normal) Comments: 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 Aerobic Bacterial Culture Final report (Normal) :15 Miscellaneous Lab Procedure Comments: Comments: [id number]; FISH URINE TEST; 50MLTest(s) Ordered: [id number]; FISH URINE TEST; [facility]WMer[facility] Trryuljbru[address] [place], [address] [facility] LAB TEST (Normal) Comments: Scanned image report available in EMR :15 PSA,Total - Annual Screen Comments: [facility] [address] [place], [id number] PSA,TOT SCREEN 0.14 ng/mL (Normal) Range: 0.00-4.00 Comments: This test was performed using the TPSA assay method for thetvCompass chemistry system. Values obtained with differentassay methods cannot be used interchangably.When changing PSA assays in the course of monitoring apatient, additional sequential testing should be carriedout to confirm baseline values. :15 Testosterone, Serum Total Comments: [facility] [address]psq[address] [place], [address] Testosterone 396 ng/dL (Normal) Range: 241-827 :45 Culture, Urine Comments: [facility] Bodlbymggz[address] [place], [address] CUUR See Note (Normal) Comments: Urine CultureORGANISM 1: Mixed Gram Positive OrganismsColony Count 25,000-50,000MIX CULTURE Mixed contaminants. Submit a new specimen if indicated. :30 HgA1C , Office (97990) HgA1C , Office 9.5 % (Abnormal) Range: 4.6 - 7.1 :30 Blood Glucose , Office (03186) Blood Glucose , Office 178 (Normal) 03-Vep-745818:57 Fecal Occult Blood , Office (36930) Fecal Occult Blood , Office (Inhouse) negative (Normal) 23-Qsl-884065:51 POTASSIUM SERUM (38569) Comments: PATIENT NOT FASTINGPERFORMED BY: [facility] Rpnvtl2796 [facility] [id number] Information: 845690,[id number] Potassium, Serum 4.9 mmol/L (Normal) Range: 3.5-5.2 :23 HgA1C , Office (08207) HgA1C , Office 8.4 % (Abnormal) Range: 4.6 - 7.1 :23 Blood Glucose , Office (27589) Blood Glucose , Office 129 (Normal) :34 TSH (THYROID STIMULATING Comments: PATIENT WAS FASTINGPERFORMED BY: [facility] [id number] HORMONE) (96624) TSH 1.580 {uIU/mL} (Normal) Range: 0.450-4.500 :34 CALCIFEDIOL (23491) Comments: PATIENT WAS FASTINGPERFORMED BY: [facility]6370 [facility] [id number] Vitamin D, 25-Hydroxy 44.9 ng/mL (Normal) Range: 30.0-100.0 Comments: Vitamin D deficiency has been defined by the Dexter ofMedicine and an Endocrine Society practice guideline as alevel of serum 25-OH vitamin D less than 20 ng/mL (1,2).The Endocrine Society went on to further define vitamin Dinsufficiency as a level between 21 and 29 ng/mL (2).1. IOM (Dexter of Medicine). 2010. Dietary reference intakes for calcium and D. [place]: The National Academies Press.2. Sandy MF, Braulio NC, Darren STILL, et al. Evaluation, treatment, and prevention of vitamin D deficiency: an Endocrine Society clinical practice guideline. JCEM. 2010; 96(7):1911-30. :34 METABOLIC PANEL, COMPREHENSIVE Comments: PATIENT WAS FASTINGPERFORMED BY: [facility]6[address] [facility] [id number] (06651) ALT (SGPT) 20 [iU]/L (Normal) Range: 0-44 [...] mg/dL (Abnormal) Range: 65-99 :34 LIPID PANEL (85435) Comments: PATIENT WAS FASTINGPERFORMED BY: [facility] [id number] LDL/HDL Ratio 2.4 {ratio_units} (Normal) Range: 0.0-3.6 [...] auto diff Comments: PATIENT WAS FASTINGPERFORMED BY: [employer]6370 [facility] [id number] Information: [id number] (86208) Immature Grans (Abs) 0.0 {x10E3/uL} (Normal) Range: [...] Microscopic Examination Comments: PATIENT WAS FASTINGPERFORMED BY: [facility]CoRobert [facility] SomersetSmhhfz3579 [facility] [id number] Bacteria Few (Normal) Mucus Threads Present (Normal) Crystal Type Calcium Oxalate (Normal) Crystals Present (Abnormal) Epithelial Cells (non renal) None seen {/hpf} (Normal) Range: 0 - 10 RBC 0-2 {/hpf} (Normal) Range: 0 - 2 WBC 11-30 {/hpf} (Abnormal) Range: 0 - 5 :22 CBC W/AUTO DIFF WBC Comments: PATIENT WAS FASTINGPERFORMED BY: LabCoRobert Wood Johnson [facility] Hospital SomersetKrcnjx9677 [facility] [id number] Information: [id number] (92830) Immature Grans (Abs) 0.0 {x10E3/uL} (Normal) Range: [...] 4.14-5.80 WBC 8.9 {x10E3/uL} (Normal) Range: 3.4-10.8 6-Zby-378841:22 TSH (61068) Comments: PATIENT WAS FASTINGPERFORMED BY: [employer] InternationalRobert Wood Johnson University Hospital SomersetPzznlf0469 [facility] [id number] TSH 3.050 {uIU/mL} (Normal) Range: 0.450-4.500 6-Fve-070064:22 URINALYSIS, W/ MICRO (56335) Comments: PATIENT WAS FASTINGPERFORMED BY: [facility]6370 [facility] [id number] Microscopic Examination See below: (Normal) Comments: Microscopic was indicated and was performed. Nitrite, Urine Positive (Abnormal) Urobilinogen,Semi-Qn 0.2 mg/dL (Normal) Range: 0.2-1.0 Bilirubin Negative (Normal) Occult Blood Negative (Normal) Ketones Negative (Normal) Glucose Negative (Normal) Protein Negative (Normal) WBC Esterase 1+ (Abnormal) Appearance Clear (Normal) Urine-Color Yellow (Normal) pH 6.0 (Normal) Range: 5.0-7.5 Specific [place] 1.020 (Normal) Range: 1.005-1.030 :22 MICROALBUMIN: CREATININE RATIO Comments: PATIENT WAS FASTINGPERFORMED BY: [facility]6370 [facility] [id number] (93448) AND (86348) Microalb/Creat Ratio 23.2 {mg/g_creat} (Normal) Range: 0.0-30.0 Microalbumin, Urine 23.0 ug/mL (Abnormal) Range: 0.0-17.0 Creatinine, Urine 99.2 mg/dL (Normal) Range: 22.0-328.0 :22 METABOLIC PANEL, COMPREHENSIVE Comments: PATIENT WAS FASTINGPERFORMED BY: [facility]6370 [facility] [id number] (34356) ALT (SGPT) 23 [iU]/L (Normal) Range: 0-44 [...] 95 mg/dL (Normal) Range: 65-99 :22 CALCIFIDIOL (90635) VIT D 25 Comments: PATIENT WAS FASTINGPERFORMED BY: [employer]70 [facility] HospitaliLincCommunity Health [id number] Vitamin D, 25-Hydroxy 55.3 ng/mL (Normal) Range: 30.0-100.0 Comments: Vitamin D deficiency has been defined by the Dexter ofMedicine and an Endocrine Society practice guideline as alevel of serum 25-OH vitamin D less than 20 ng/mL (1,2).The Endocrine Society went on to further define vitamin Dinsufficiency as a level between 21 and 29 ng/mL (2).1. IOM (Dexter of Medicine). 2010. Dietary reference intakes for calcium and D. [place]: The National Academies Press.2. Sandy MF, Braulio NC, Darren STILL, et al. Evaluation, treatment, and prevention of vitamin D deficiency: an Endocrine Society clinical practice guideline. JCEM. 2010; 96(7):1911-30. :22 LIPID PANEL (61328) Comments: PATIENT WAS FASTINGPERFORMED BY: [employer]6370 [facility] [id number] LDL/HDL Ratio 1.9 {ratio_units} (Normal) Range: 0.0-3.6 [...] Range: 100-199 :11 Blood Glucose , Office (42187) Blood Glucose , Office 116 (Normal) :11 HgA1C , Office (80289) HgA1C , Office 8.8 % (Abnormal) Range: 4.6 - 7.1 :17 Hemoglobin Glyclated (HGB A1C) Comments: PATIENT NOT FASTINGPERFORMED BY: LabCovenant [facility] Center6370 [facility] [id number] (56994) Hemoglobin A1c 8.9 % (Abnormal) Range: 4.8-5.6 Comments: . Pre-diabetes: 5.7 - 6.4 Diabetes: >6.4 Glycemic control for adults with diabetes: <7.0 :17 TSH (64009) Comments: PATIENT NOT FASTINGPERFORMED BY: LabCoRobert Wood Johnson [facility] Hospital SomersetWbstlq8117 [facility] [id number] TSH 2.960 {uIU/mL} (Normal) Range: 0.450-4.500 :17 METABOLIC PANEL, COMPREHENSIVE Comments: PATIENT NOT FASTINGPERFORMED BY: LabCoNancy Ville 6042670 [facility] [id number] (63780) ALT (SGPT) 25 [iU]/L (Normal) Range: 0-44 [...] Glucose, Serum 113 mg/dL (Abnormal) Range: 65-99 82-Xko-60017:17 CBC W/AUTO DIFF WBC Comments: PATIENT NOT FASTINGPERFORMED BY: LabCoRobert Wood Johnson [facility] Hospital SomersetPxccey5090 [facility] [id number] Information: [id number] (78044) Immature Grans (Abs) OTHER {x10E3/uL} (Normal) Range: [...] {x10E3/uL} (Normal) Range: 3.4-10.8 :17 LIPID PANEL (71280) Comments: PATIENT NOT FASTINGPERFORMED BY: [employer]6370 [facility] [id number] LDL/HDL Ratio 3.0 {ratio_units} (Normal) Range: 0.0-3.6 [...] 187 mg/dL (Normal) Range: 100-199 :17 CALCIFIDIOL (81760) VIT D 25 Comments: PATIENT NOT FASTINGPERFORMED BY: LabCo Baxzlg4100 [facility] [id number] Vitamin D, 25-Hydroxy 56.3 ng/mL (Normal) Range: 30.0-100.0 Comments: Vitamin D deficiency has been defined by the Dexter ofMedicine and an Endocrine Society practice guideline as alevel of serum 25-OH vitamin D less than 20 ng/mL (1,2).The Endocrine Society went on to further define vitamin Dinsufficiency as a level between 21 and 29 ng/mL (2).1. IOM (Dexter of Medicine). 2010. Dietary reference intakes for calcium and D. [place]: The National Academies Press.2. Sandy MF, Braulio DALTON, Darren STILL, et al. Evaluation, treatment, and prevention of vitamin D deficiency: an Endocrine Society clinical practice guideline. JCEM. 2010; 96(7):1911-30. :05 Blood Glucose , Office (61434) Blood Glucose , Office 114 (Normal) :02 HgA1C , Office (02681) HgA1C , Office 8.4 % (Abnormal) Range: 4.6 - 7.1 :02 Blood Glucose , Office (31531) Blood Glucose , Office 241 (Normal) Comments: not fasting :58 HgA1C , Office (01034) HgA1C , Office 7.9 % (Abnormal) Range: 4.6 - 7.1 :58 Blood Glucose , Office (56451) Blood Glucose , Office 135 (Normal) :40 Prostate-Specific Ag, Serum Comments: PATIENT NOT FASTINGPERFORMED BY: [employer]70 [facility] [id number] Information: [id number] ORDER Prostate Specific Ag, 0.1 ng/mL (Normal) Range: 0.0-4.0 Serum Comments: [employer] ECLIA methodology. .According to the [place] [employer], Serum PSA shoulddecrease and remain [...] With Differential/Platelet Comments: PATIENT WAS FASTINGPERFORMED BY: [employer]6370 [facility] [id number] Information: [id number] Immature Grans (Abs) 0.0 {x10E3/uL} (Normal) Range: [...] 4.14-5.80 WBC 7.4 {x10E3/uL} (Normal) Range: 3.4-10.8 51-Zau-76003:23 Comp. Metabolic Panel (14) Comments: PATIENT WAS FASTINGPERFORMED BY: LabCoRobert Wood Johnson [facility] Hospital SomersetOvlbdt3746 [facility] [id number] ALT (SGPT) 16 [iU]/L (Normal) Range: 0-44 [...] % (Abnormal) Comments: PATIENT WAS FASTINGPERFORMED BY: [employer]adero70 [facility] [id number] :23 Range: 4.8-5.6 Comments: . Increased risk for diabetes: 5.7 - 6.4 Diabetes: >6.4 Glycemic control for adults with diabetes: <7.0 :23 Lipid Panel With LDL/HDL Comments: PATIENT WAS FASTINGPERFORMED BY: [employer]ero70 [facility] [id number] Ratio LDL/HDL Ratio 2.2 {ratio_units} (Normal) Range: [...] Randm Ur Comments: PATIENT WAS FASTINGPERFORMED BY: [employer] InternationalRobert Wood Johnson University Hospital SomersetWgndmv5659 [facility] [id number] Microalb/Creat Ratio 78.4 {mg/g_creat} (Abnormal) Range: 0.0-30.0 Microalbumin, Urine 66.5 ug/mL (Abnormal) Range: 0.0-17.0 Creatinine, Urine 84.8 mg/dL (Normal) Range: 22.0-328.0 :23 Microscopic Examination Comments: PATIENT WAS FASTINGPERFORMED BY: [employer] InternationalRobert Wood Johnson [facility] Hospital SomersetEuorcq9236 [facility] [id number] Bacteria Few (Normal) Mucus Threads Present (Normal) Epithelial Cells (non 0-10 {/hpf} Range: 0 - 10 renal) (Normal) RBC 0-2 {/hpf} (Normal) Range: 0 - 2 WBC 6-10 {/hpf} Range: 0 - 5 (Abnormal) TSH 1.390 {uIU/mL} Comments: PATIENT WAS FASTINGPERFORMED BY: [facility]6370 [facility] [id number] :23 (Normal) Range: 0.450-4.500 :23 Urinalysis, Complete Comments: PATIENT WAS FASTINGPERFORMED BY: [facility]6370 [facility] [id number] Microscopic Examination See below: (Normal) Comments: Microscopic was indicated and was performed. Nitrite, Urine Positive (Abnormal) Urobilinogen,Semi-Qn 1.0 mg/dL (Normal) Range: 0.0-1.9 Bilirubin Negative (Normal) Occult Blood Negative (Normal) Ketones Negative (Normal) Glucose Negative (Normal) Protein Trace (Normal) WBC Esterase Negative (Normal) Appearance Clear (Normal) Urine-Color Yellow (Normal) pH 7.0 (Normal) Range: 5.0-7.5 Specific [place] 1.017 (Normal) Range: 1.005-1.030 Vitamin D, 25-Hydroxy 65.7 ng/mL (Normal) Comments: PATIENT WAS FASTINGPERFORMED BY: BEATA Joseph6370 [facility] [id number] :23 Range: 30.0-100.0 Comments: Vitamin D deficiency has been defined by the Dexter ofMedicine and an Endocrine Society practice guideline as alevel of serum 25-OH vitamin D less than 20 ng/mL (1,2).The Endocrine Society went on to further define vitamin Dinsufficiency as a level between 21 and 29 ng/mL (2).1. IOM (Dexter of Medicine). 2010. Dietary reference intakes for calcium and D. [place]: The National AcademTower Vision Press.2. Braulio Evans, Darren STILL, et al. Evaluation, treatment, and prevention of vitamin D deficiency: an Endocrine Society clinical practice guideline. JCEM. 2010; 96(7):191-. :56 CALCIFIDIOL (79169) VIT D 25 Comments: do in june 2014; PATIENT NOT FASTINGPERFORMED BY: [employer] Gahngy2116 [facility] [id number] Vitamin D, 25-Hydroxy 23.2 ng/mL (Abnormal) Range: 30.0-100.0 Comments: Vitamin D deficiency has been defined by the Dexter ofMedicine and an Endocrine Society practice guideline as alevel of serum 25-OH vitamin D less than 20 ng/mL (1,2).The Endocrine Society went on to further define vitamin Dinsufficiency as a level between 21 and 29 ng/mL (2).1. IOM (Dexter of Medicine). 2010. Dietary reference intakes for calcium and D. [place]: The National Academies Press.2. Braulio Evans, Darren STILL, et al. Evaluation, treatment, and prevention of vitamin D deficiency: an Endocrine Society clinical practice guideline. JCEM. 2010; 96(7):1911-. :56 T4, FREE (THYROXINE) Comments: PATIENT NOT FASTINGPERFORMED BY: [facility]6370 [facility] [id number] Information: [id number] (42967) T4,Free(Direct) 1.07 ng/dL (Normal) Range: 0.82-1.77 :56 T3, FREE (TRIDOTHYRONINE) (97885) Comments: PATIENT NOT FASTINGPERFORMED BY: [facility]6370 [facility] [id number] Triiodothyronine,Free,Serum 2.8 pg/mL (Normal) Range: 2.0-4.4 :56 TSH (67590) Comments: PATIENT NOT FASTINGPERFORMED BY: [facility]6370 [facility] [id number] TSH 1.790 {uIU/mL} (Normal) Range: 0.450-4.500 :57 HgA1C , Office (90926) HgA1C , Office 7.0 % (Normal) Range: 4.6 - 7.1 :57 Blood Glucose , Office (92543) Blood Glucose , Office 146 (Normal) :24 Microscopic Examination Comments: PATIENT NOT FASTINGPERFORMED BY: [facility]6370 [facility] [id number] Bacteria Few (Normal) Mucus Threads Present (Normal) Epithelial Cells (non renal) 0-10 {/hpf} (Normal) Range: 0 - 10 RBC 0-2 {/hpf} (Normal) Range: 0 - 2 WBC 0-5 {/hpf} (Normal) Range: 0 - 5 :24 Vitamin D Hydroxy (73348) Comments: PATIENT NOT FASTINGPERFORMED BY: [facility]6370 [facility] [id number] Vitamin D, 25-Hydroxy 22.8 ng/mL (Abnormal) Range: 30.0-100.0 Comments: Vitamin D deficiency has been defined by the Dexter ofMedicine and an Endocrine Society practice guideline as alevel of serum 25-OH vitamin D less than 20 ng/mL (1,2).The Endocrine Society went on to further define vitamin Dinsufficiency as a level between 21 and 29 ng/mL (2).1. IOM (Dexter of Medicine). 2010. Dietary reference intakes for calcium and D. [place]: The National Academies Press.2. Sandy MF, Braulio DALTON, Darren STILL, et al. Evaluation, treatment, and prevention of vitamin D deficiency: an Endocrine Society clinical practice guideline. JCEM. 2010; 96(7):1911-30. :24 TSH (54922) Comments: PATIENT NOT FASTINGPERFORMED BY: [employer]6370 [facility] [id number] TSH 0.812 {uIU/mL} (Normal) Range: 0.450-4.500 :24 URINALYSIS, W/ MICRO (74388) Comments: PATIENT NOT FASTINGPERFORMED BY: [employer]6370 [facility] [id number] Microscopic Examination See below: (Normal) Comments: Microscopic was indicated and was performed. Microscopic Examination MICRON (Normal) Comments: Microscopic follows if indicated. Nitrite, Urine Negative (Normal) Urobilinogen,Semi-Qn 0.2 mg/dL (Normal) Range: 0.0-1.9 Bilirubin Negative (Normal) Occult Blood Negative (Normal) Ketones Negative (Normal) Glucose Negative (Normal) Protein Negative (Normal) WBC Esterase Negative (Normal) Appearance Clear (Normal) Urine-Color Yellow (Normal) pH 6.5 (Normal) Range: 5.0-7.5 Specific [place] 1.020 (Normal) Range: 1.005-1.030 :24 MICROALBUMIN: CREATININE RATIO Comments: PATIENT NOT FASTINGPERFORMED BY: [employer]6370 [facility] [id number] (19811) AND (16589) Microalb/Creat Ratio 40.9 {mg/g_creat} (Abnormal) Range: 0.0-30.0 Microalbumin, Urine 42.8 ug/mL (Abnormal) Range: 0.0-17.0 Creatinine, Urine 104.7 mg/dL (Normal) Range: 22.0-328.0 :24 METABOLIC PANEL, COMPREHENSIVE Comments: PATIENT NOT FASTINGPERFORMED BY: [employer] InternationalRobert Wood Johnson [facility] Hospital SomersetSlkiky4222 [facility] [id number] (87049) ALT (SGPT) 19 [iU]/L (Normal) Range: 0-44 [...] mg/dL (Abnormal) Range: 65-99 :24 LIPID PANEL (44685) Comments: PATIENT NOT FASTINGPERFORMED BY: [employer] InternationalRobert Wood Johnson [facility] Hospital SomersetGvhozo5792 [facility] [id number] LDL/HDL Ratio 1.9 {ratio_units} (Normal) Range: 0.0-3.6 [...] Cholesterol, Total 168 mg/dL (Normal) Range: 100-199 78-Xdq-45829:24 CBC W/AUTO DIFF WBC Comments: PATIENT NOT FASTINGPERFORMED BY: [facility] Inujny2472 [facility] [id number] Information: [id number] (35895) Immature Grans (Abs) 0.0 {x10E3/uL} (Normal) Range: [...] 3.4-10.8 :54 FECAL OCCULT- Tubes sent home (79459) FECAL OCCULT HGB ASSAY, QUAL, 1-3 SIMULTANEOU negative (Normal) :04 Microscopic Examination Comments: PATIENT WAS FASTINGPERFORMED BY: [employer] [facility] [id number] Yeast Present (Abnormal) Bacteria Few (Normal) Mucus Threads Present (Normal) Epithelial Cells (non renal) None seen {/hpf} (Normal) Range: 0 - 10 RBC 0-3 {/hpf} (Normal) Range: 0 - 3 WBC 0-5 {/hpf} (Normal) Range: 0 - 5 :52 TSH (01202) Comments: PATIENT WAS FASTINGPERFORMED BY: [employer] [facility] [id number] TSH 3.370 {uIU/mL} (Normal) Range: 0.450-4.500 :52 URINALYSIS, W/ MICRO (13942) Comments: PATIENT WAS FASTINGPERFORMED BY: [employer] [facility] [id number] Microscopic Examination See below: (Normal) Nitrite, Urine Negative (Normal) Urobilinogen,Semi-Qn 0.2 mg/dL (Normal) Range: 0.0-1.9 Bilirubin Negative (Normal) Occult Blood Negative (Normal) Ketones Negative (Normal) Glucose Negative (Normal) Protein 1+ (Abnormal) WBC Esterase Negative (Normal) Appearance Clear (Normal) Urine-Color Yellow (Normal) pH 6.0 (Normal) Range: 5.0-7.5 Specific [place] 1.027 (Normal) Range: 1.005-1.030 :52 MICROALBUMIN: CREATININE RATIO Comments: PATIENT WAS FASTINGPERFORMED BY: [employer] Imkduc3355 [facility] [id number] (62481) AND (32163) Creatinine, Urine 179.7 mg/dL (Normal) Range: 22.0-328.0 Microalb/Creat Ratio 71.7 {mg/g_creat} (Abnormal) Range: 0.0-30.0 Microalbumin, Urine 128.8 ug/mL (Abnormal) Range: 0.0-17.0 :52 METABOLIC PANEL, COMPREHENSIVE Comments: PATIENT WAS FASTINGPERFORMED BY: [employer]70 [facility] [id number] (40299) ALT (SGPT) 24 [iU]/L (Normal) Range: 0-44 [...] mg/dL (Abnormal) Range: 65-99 :52 LIPID PANEL (01064) Comments: PATIENT WAS FASTINGPERFORMED BY: [employer]6370 [facility] [id number] LDL/HDL Ratio 1.9 {ratio_units} (Normal) Range: 0.0-3.6 [...] MANUAL DIFF Comments: PATIENT WAS FASTINGPERFORMED BY: LabCoRobert Wood Johnson [facility] Hospital SomersetXyzyrz7917 [facility] [id number] Information: [id number] (69724) Immature Grans (Abs) 0.0 {x10E3/uL} (Normal) Range: [...] Range: 3.4-10.8 :00 Blood Glucose , Office (80718) Blood Glucose , Office 129 (Normal) Comments: [id number] at home this am :00 HgA1C , Office (26378) HgA1C , Office 7.1 % (Normal) Range: 4.6 - 7.1 :06 Blood Glucose , Office (08592) Blood Glucose , Office 125 (Normal) :06 HgA1C , Office (99142) HgA1C , Office 6.5 % (Normal) Range: 4.6 - 7.1 :23 Microscopic Examination Comments: PATIENT WAS FASTINGPERFORMED BY: [employer]ero70 [facility] [id number] Bacteria None seen (Normal) Mucus Threads Present (Normal) Epithelial Cells (non renal) 0-10 {/hpf} (Normal) Range: 0 - 10 RBC 0-3 {/hpf} (Normal) Range: 0 - 3 WBC 0-5 {/hpf} (Normal) Range: 0 - 5 :23 LIPID PANEL (23772) Comments: PATIENT WAS FASTINGPERFORMED BY: [employer]ero70 [facility] [id number] LDL/HDL Ratio 1.9 {ratio_units} (Normal) Range: 0.0-3.6 LDL Cholesterol Calc 80 mg/dL (Normal) Range: 0-99 VLDL Cholesterol [place] 26 mg/dL (Normal) Range: 5-40 HDL Cholesterol 43 mg/dL (Normal) Comments: According to ATP-III Guidelines, HDL-C >59 mg/dL is considered anegative risk factor for CHD. Triglycerides 128 mg/dL (Normal) Range: 0-149 Cholesterol, Total 149 mg/dL (Normal) Range: 100-199 :23 TSH (27979) Comments: PATIENT WAS FASTINGPERFORMED BY: [employer] LabM[employer] Kdvdga1842 [facility] [id number] TSH 1.190 {uIU/mL} (Normal) Range: 0.450-4.500 :23 URINALYSIS, W/ MICRO (87053) Comments: PATIENT WAS FASTINGPERFORMED BY: [facility]6370 [facility] [id number] Microscopic Examination See below: (Normal) Microscopic Examination MICRON (Normal) Comments: Microscopic follows if indicated. Nitrite, Urine Negative (Normal) Urobilinogen,Semi-Qn 0.2 mg/dL (Normal) Range: 0.0-1.9 Bilirubin Negative (Normal) Occult Blood Negative (Normal) Ketones Trace (Abnormal) Glucose Negative (Normal) Protein Negative (Normal) WBC Esterase Negative (Normal) Appearance Clear (Normal) Urine-Color Yellow (Normal) pH 5.5 (Normal) Range: 5.0-7.5 Specific [place] 1.017 (Normal) Range: 1.005-1.030 :23 MICROALBUMIN: CREATININE RATIO Comments: PATIENT WAS FASTINGPERFORMED BY: [employer] InternationalRobert Wood Johnson [facility] Hospital SomersetHzvqpj7534 [facility] [id number] (86908) AND (11543) Microalb/Creat Ratio 20.4 {mg/g_creat} (Normal) Range: 0.0-30.0 Microalbumin, Urine 18.6 ug/mL (Abnormal) Range: 0.0-17.0 Creatinine, Urine 91.2 mg/dL (Normal) Range: 22.0-328.0 23-Csp-719353:23 METABOLIC PANEL, COMPREHENSIVE Comments: PATIENT WAS FASTINGPERFORMED BY: [employer] InternationalRobert Wood Johnson [facility] Hospital SomersetUhxnim3556 [facility] [id number] (47232) ALT (SGPT) 26 [iU]/L (Normal) Range: 0-44 [...] Glucose, Serum 99 mg/dL (Normal) Range: 65-99 19-Qga-059827:23 CBC WITH MANUAL DIFF Comments: PATIENT WAS FASTINGPERFORMED BY: [facility] Frjmmp2979 [facility] [id number] Information: [id number] (77226) Immature Grans (Abs) 0.0 {x10E3/uL} (Normal) Range: [...] 4.14-5.80 WBC 7.8 {x10E3/uL} (Normal) Range: 3.4-10.8 03-Tqx-828657:57 FECAL OCCULT- Tubes sent home (33817) FECAL OCCULT HGB ASSAY, QUAL, 1-3 SIMULTANEOU negative (Normal) :37 HgA1C , Office (43457) HgA1C , Office 6.5 % (Normal) Range: 4.6 - 7.1 :37 Blood Glucose , Office (18426) Blood Glucose , Office 103 (Normal) :24 Microscopic Examination Comments: PATIENT WAS FASTINGPERFORMED BY: [employer]70 [facility] [id number] Bacteria Few (Normal) Mucus Threads Present (Normal) Epithelial Cells (non renal) 0-10 {/hpf} (Normal) Range: 0 - 10 RBC 4-10 {/hpf} (Abnormal) Range: 0 - 3 WBC 11-30 {/hpf} (Abnormal) Range: 0 - 5 :24 TSH (25888) Comments: PATIENT WAS FASTINGPERFORMED BY: [employer]adero70 [facility] [id number] TSH 2.300 {uIU/mL} (Normal) Range: 0.450-4.500 :24 URINALYSIS, W/ MICRO (71473) Comments: PATIENT WAS FASTINGPERFORMED BY: [employer] MusicLifebrite [facility] [place]in [place] [id number] Microscopic Examination See below: (Normal) Nitrite, Urine Positive (Abnormal) Urobilinogen,Semi-Qn 0.2 mg/dL (Normal) Range: 0.0-1.9 Bilirubin Negative (Normal) Occult Blood 1+ (Abnormal) Ketones Trace (Abnormal) Glucose Negative (Normal) Protein Trace (Normal) WBC Esterase 2+ (Abnormal) Appearance Clear (Normal) Urine-Color Yellow (Normal) pH 5.5 (Normal) Range: 5.0-7.5 Specific [place] 1.026 (Normal) Range: 1.005-1.030 31-Aug-20129:24 METABOLIC PANEL, COMPREHENSIVE Comments: PATIENT WAS FASTINGPERFORMED BY: [facility]CoRobert [facility] SomersetMnxrco1188 [facility] [id number] (76162) ALT (SGPT) 31 [iU]/L (Normal) Range: 0-44 [...] MANUAL DIFF Comments: PATIENT WAS FASTINGPERFORMED BY: LabCoRobert Wood Johnson [facility] SomersetNmzhpx7390 [facility] [id number] Information: [id number] (43136) Immature Grans (Abs) 0.0 {x10E3/uL} (Normal) Range: [...] CREATININE RATIO Comments: PATIENT WAS FASTINGPERFORMED BY: LabCoRobert Wood Johnson [facility] Hospital SomersetExshay6866 [facility] [id number] (57280) AND (99345) Microalb/Creat Ratio 41.7 {mg/g_creat} (Abnormal) Range: 0.0-30.0 Microalbumin, Urine 73.8 ug/mL (Abnormal) Range: 0.0-17.0 Creatinine, Urine 176.9 mg/dL (Normal) Range: 22.0-328.0 :24 LIPID PANEL (45251) Comments: PATIENT WAS FASTINGPERFORMED BY: LabCoRobert [facility] Johnson [facility] Hospital SomersetLgjuhj1565 [facility] [id number] LDL/HDL Ratio 2.2 {ratio_units} (Normal) Range: 0.0-3.6 LDL Cholesterol Calc 83 mg/dL (Normal) Range: 0-99 VLDL Cholesterol Meche 27 mg/dL (Normal) Range: 5-40 Cholesterol, Total 147 mg/dL (Normal) Range: 100-199 HDL Cholesterol 37 mg/dL (Abnormal) Comments: According to ATP-III Guidelines, HDL-C >59 mg/dL is considered anegative risk factor for CHD. Triglycerides 136 mg/dL (Normal) Range: 0-149 :06 HgA1C , Office (14680) HgA1C , Office 6.6 % (Normal) Range: 4.6 - 7.1 :06 Blood Glucose , Office (84622) Blood Glucose , Office 98 (Normal) :59 Blood Glucose , Office (52997) Blood Glucose , Office 235 (Normal) 2-Frt-727309:04 TSH (11001) Comments: PATIENT WAS FASTINGPERFORMED BY: LabCoRobert Wood Johnson [facility] Hospital SomersetLwakir0667 [facility] [id number] TSH 1.710 {uIU/mL} (Normal) Range: 0.450-4.500 :04 METABOLIC PANEL, COMPREHENSIVE Comments: PATIENT WAS FASTINGPERFORMED BY: LabCoRobert [facility] Johnson [facility] Hospital SomersetZtfrsz7301 [facility] [id number] (56279) ALT (SGPT) 30 [iU]/L (Normal) Range: 0-44 [...] mg/dL (Abnormal) Range: 65-99 :04 LIPID PANEL (57551) Comments: PATIENT WAS FASTINGPERFORMED BY: LabCoRobert [facility] Johnson [facility] Hospital SomersetQlzypy3589 [facility] [id number] LDL/HDL Ratio 2.3 {ratio_units} (Normal) Range: 0.0-3.6 [...] DIFF Comments: PATIENT WAS FASTINGPERFORMED BY: BEATA LabC[facility] Center6370 [facility] [id number] Information: [id number] (44693) Immature Grans (Abs) 0.0 {x10E3/uL} (Normal) Range: [...] (Normal) Range: 4.0-10.5 :59 HgA1C , Office (87058) HgA1C , Office 7.2 % (Abnormal) Range: 4.6 - 7.1 :02 HgA1C , Office (61292) HgA1C , Office 8.3 % (Abnormal) Range: 4.6 - 7.1 :02 Blood Glucose , Office (12111) Blood Glucose , Office 162 (Normal) :50 Microscopic Examination Comments: PATIENT NOT FASTINGPERFORMED BY: [facility] MailCovenant Medical Center6370 [facility] [id number] Bacteria Few (Normal) Mucus Threads Present (Normal) Epithelial Cells (non renal) None seen {/hpf} (Normal) Range: 0 - 10 RBC 0-3 {/hpf} (Normal) Range: 0 - 3 WBC 6-10 {/hpf} (Abnormal) Range: 0 - 5 :11 HgA1C , Office (51586) HgA1C , Office 6.9 % (Normal) Range: 4.6 - 7.1 :11 Blood Glucose , Office (12476) Blood Glucose , Office 115 (Normal) :50 MICROALBUMIN: CREATININE RATIO Comments: PATIENT NOT FASTINGPERFORMED BY: [facility]6370 [facility] [id number] (74386) AND (04237) Microalb/Creat Ratio 20.0 {mg/g_creat} (Normal) Range: 0.0-30.0 Creatinine, Urine 97.5 mg/dL (Normal) Range: 22.0-328.0 Microalbumin, Urine 19.5 ug/mL (Abnormal) Range: 0.0-17.0 :50 URINALYSIS, W/ MICRO Comments: PATIENT NOT FASTINGPERFORMED BY: [facility]6370 [facility] [id number] Information: [id number] (40979) Microscopic Examination See below: (Normal) Microscopic Examination MICRON (Normal) Comments: Microscopic follows if indicated. Nitrite, Urine Negative (Normal) Urobilinogen,Semi-Qn 0.2 mg/dL (Normal) Range: 0.0-1.9 Bilirubin Negative (Normal) Occult Blood Negative (Normal) Ketones Negative (Normal) Glucose Negative (Normal) Protein Negative (Normal) WBC Esterase Negative (Normal) Appearance Clear (Normal) Urine-Color Yellow (Normal) pH 6.0 (Normal) Range: 5.0-7.5 Specific [place] 1.017 (Normal) Range: 1.005-1.030 :03 TSH (13421) Comments: PATIENT WAS FASTINGPERFORMED BY: [facility]6370 [facility] [id number] TSH 3.030 {uIU/mL} (Normal) Range: 0.450-4.500 95-Ojz-444483:03 METABOLIC PANEL, COMPREHENSIVE Comments: PATIENT WAS FASTINGPERFORMED BY: LabCovenant Medical Center6370 [facility] [id number] (90273) ALT (SGPT) 41 [iU]/L (Normal) Range: 0-55 [...]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 #[id number]-right [id number] by Kelly Rodgers LPN, DO CT - [...] Advance Directives Name Dates Details Immunization Registry [place] - Effective on 03/02/2017. 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 The patient does not have durable power of assistant city attorney or living will. Other providers contributing [...] patient does not have durable power of assistant city attorney or living will. The patient has [...] patient does not have durable power of assistant city attorney or living will. The patient has [...] patient does not have durable power of assistant city attorney or living will. The patient has [...]
--- OUTSIDE RECORDS SUMMARY | 2018-07-17 07:45 | XMS RPT_ITS ---
:1945 Author Organization OHIP Care Team Providers Name Role Phone Andrea Hutchins Attending Unavailable Andrea Hutchins Referring Unavailable Kelly Vargas Primary Care Unavailable PROBLEMS PROBLEMS No Problem Records FoundPROCEDURES PROCEDURES No Procedure Records FoundRESULTS RESULTS COLON BIOPSY (CHOOSE Observed: 05/12/2018 Status: F Source: [place] SITE) 12:00 AM [facility] [place] REPOSITORY Patient: DAFNE OBANDO : 1945 (73/M) Acct Num: [id number] Phys: Andrea Hutchins Unit Num: [id number] Loc: LABSPEC Specimen: [id number] Received: 05/12/18 - 1599 Spec Type: COLON BX TISSUES 1 TISSUES: A. Sigmoid colon biopsy B. Right colon C. Descending colon D. COLON BIOPSY COMMENT C. The findings are consistent with focal high-grade dysplasia. In situ carcinoma cannot be excluded. The focus of high-grade dysplasia is minute. Clinical correlation is suggested. Immunohistochemistry ([id number]) supports the above diagnosis. Case has been reviewed in consultation with Dr. Bingham who concurs with the above diagnosis. IDC:CE GROSS DESCRIPTION A - Received in fixative is one container labeled with the patient's name and designated sigmoid polyp. The specimen consists of two irregular fragments of light matthews soft tissue that in aggregate measure 1 x 0.5 x 0.3 cm. The specimen is totally submitted in one cassette. B - Received in fixative is one container labeled with the patient's name and designated right colon polyp. The specimen consists of three irregular fragments of light matthews soft tissue that in aggregate measure 1.2 x 0.6 x 0.3 cm. The larger fragments are bisected and submitted along with the smaller fragment in one cassette. C - Received in fixative is one container labeled with the patient's name and designated descending/ transverse colon polyp. The specimen consists of multiple irregular fragments of light matthews soft tissue that in aggregate measure 1 x 0.5 x 0.2 cm. The largest fragment is bisected and submitted along with the smaller fragments in one cassette. D - Received in fixative is one container labeled with the patient's name and designated mass at hepatic flexure. The specimen consists of multiple irregular fragments of light matthews soft tissue that in aggregate measure 1.2 x 0.6 x 0.1 cm. The specimen is totally submitted in one cassette. / AM:beth 05/15/18 TC:0 CPT: 99201 x4 HEADER OPERATION: Colonoscopy with polypectomy PRE-OP DIAGNOSIS: Screening/polyps; rule out adenoma TISSUE SUBMITTED: A. Sigmoid polyps, B. Right colon polyps, C. Descending/ transverse colon polyps, D. Colon mass biopsies, hepatic flexure MICROSCOPIC DESCRIPTION Slides are reviewed. MICROSCOPIC DIAGNOSIS A. Sigmoid colon polyps, biopsy: Fragments of tubular adenoma. B. Right colon polyps, biopsy: Fragments of tubular adenoma. C. Descending/transverse colon polyps, biopsy: Fragments of tubular adenoma. Fragments of hyperplastic polyp. D. 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 See Comment. AM:beth 05/16/18 Signed Lopez Olivera DO 05/18/18 <signature on file> Performed By: #### PCOLBX #### [facility] [address] [place] [address], [address] IMMUNOHISTOCHEMISTRY Observed: 05/12/2018 Status: F Source: [place] 12:00 AM [facility] [place] REPOSITORY Patient: DAFNE OBANDO : 1945 (73/M) Acct Num: [id number] Phys: Andrea Hutchins Unit Num: [id number] Loc: LABSPEC Specimen: [id number] Received: 05/17/18 - 1309 Spec Type: IMMUNO TISSUES 1 TISSUES: D. COLON BIOPSY SPECIMEN INFORMATION: Tissue Source: D - Colon mass at hepatic flexure, biopsy Clinical Info: Screening / polyps Specimen Number: [id number] CPT code: 62839, 67994 METHODOLOGY: Deparaffinized sections of prefer/formalin-fixed tissue or PAP/DQ stained slides are incubated with monoclonal/polyclonal antibodies/oligonucleotide probes. Localization is made via biotin free immunoperoxidase method. Appropriate controls are performed and reacted as expected. Results on target cell population are indicated in the following table: RESULTS: ANTIBODY / CLONE RESULT Block D P53 (DO-7) positive Ki-67 (30-9) positive These tests were developed and their performance characteristics determined by [facility]. They may not have been cleared or approved by the U.S. Food and Drug Administration. The FDA has determined that such clearance or approval is not necessary. INTERPRETATION: D. Colon mass at hepatic flexure, biopsy: Consistent with focal high grade dysplasia. AM:beth 05/18/18 PHYSICIAN AND INSTITUTION [address] [address] Signed Lopez Olivera DO 05/18/18 <signature on file> Performed By: #### PIMM #### [facility] [address] [place] [address]. [place], [address] ALLERGIES ALLERGIES DATE TYPE / CODE NAME / CODE REACTION SEVERITY SOURCE 02/03/2015 Drug hydrocodone Nausea Unknown [place] Allergy/416 bitartrate/[id number] [facility] [id number]([facility] ED CT) Repository 02/03/2015 Drug acetaminophen/F006 Nausea Unknown [place] Allergy/416 628857(RXNORM) [facility] [id number]([facility] [place] ED CT) Repository 11/13/2013 Drug Sulfa (Sulfonamide Hives Unknown [place] Allergy/416 Antibiotics)/F0010 [facility] 734007([facility] [address]([facility] ED CT) Repository 11/13/2013 Drug topiramate/[id number] memory loss Unknown [place] Allergy/416 453(RXNORM) [facility] 374540([facility] [place] ED CT) Repository ENCOUNTERS ENCOUNTERS ADMIT/DISCHARGE ACCOUNT ADMITTING ENCOUNTER LOCATION SOURCE NUMBER CLASS 05/12/2018 [id number] Ambulatory [address] ing:LABSPEC Repository PAYERS PAYERS ENCOUNTER GUARANTOR PAYER SUBSCRIBER SOURCE 05/12/2018 DAFNE Violeta Primary DAFNE Violeta Gely [id number] Insurance:RUSSA RADHA BAXTERB: [facility] [id number] 02[place]18Policy Number: Repository [id number]: [id number] [phone] () Date:[id number] [id number] [place] [id number]: 05/12/2018 Secondary NOT GIVENHI Hong Insurance:SELF PAY [facility] Number: Effective Repository Date:2018-05-12
== END ==
PROVIDERS: Family Provider Internal Medicine; PCP Internal Medicine; Referring Provider Internal Medicine Gastroenterology; Visit Provider Internal Medicine Gastroenterology
DX: Z13.9 Encounter for screening, unspecified (principal); K63.5 Polyp of colon
CPT/HCPCS: 88305; 88341; 88342

== ENCOUNTER 2019-10-04 19:43 | Emergency (ER) | payer MEDICARE, SELFPAY ==
[2019-10-04 19:45] VITALS: BP 162/95; PULSE 87; RESP 18; TEMP 36.7; O2SAT 95; BMI 28.8
--- NOTE | 2019-10-04 20:10 | US_ITS ---
STUDY: VENOUS DOPPLER ULTRASOUND - RIGHT LOWER EXTREMITY REASON FOR EXAM: Male, 74 years old. RT LEG SWELLING ANKLE AND FOOT TECHNIQUE: Ultrasound evaluation of the deep vein system to include millan-scale imaging and compression was performed. Millan-scale imaging and Doppler sonographic evaluation, including duplex spectral analysis and qualitative color flow sonography, was performed. COMPARISON: None. FINDINGS: No deep venous thrombosis is identified. All visualized veins demonstrate normal compressibility, augmentation and/or color flow. US/Venous Duplex Imag/Limited/Uni IMPRESSION: No DVT is identified. Electronically Signed: Vicente Hernández MD at 20:56 EDT Tel , Service support ,
--- NOTE | 2019-10-04 20:48 | ED.VIS.GEN ---
History of Present Illness Chief Complaint: Cellulitis Detail of Chief Complaint: Swollen right lower extremity Informant: Patient, Significant Other Onset: Today Context: Sudden Onset Timing: Continuous Quality: Swelling Location: Right lower extremity Current Severity: Mild Maximum Severity: Mild Worsened by: Nothing Relieved by: Nothing Associated Symptoms: No associated symptoms Narrative: Patient is a 74-year-old male with history of bladder cancer and bladder cancer free x5 years as well as partial colectomy secondary to precancerous/cancerous polyps. He denies history of PE or DVT. He denies chest pain. He denies shortness of breath. He denies hematemesis, melena medication. He denies history of congestive heart failure. He denies orthopnea or PND. He denies fever, chills or night sweats. He denies weight gain or weight loss. There is no history of trauma. Patient states he has been out in the sun and reason both legs are red. There is a clear demarcation secondary to the anklet type sock he was wearing. Prior similar symptoms: No Recent Illness/Hospitalization: No - Past Medical History (1) History of bladder cancer Status: Resolved (2) Multiple adenomatous polyps Status: Resolved (3) BPH (benign prostatic hyperplasia) Status: Chronic (4) Hyperlipemia Status: Chronic (5) Reflex sympathetic dystrophy of right leg Status: Chronic (6) Tobacco abuse Status: Chronic (7) Type II diabetes mellitus Status: Chronic Past Medical History - Allergies and Home Meds Allergies/Adverse Reactions: Allergies Sulfa (Sulfonamide Antibiotics) Allergy (Verified 10/04/19 19:48) Hives acetaminophen [From Vicodin] Adverse Reaction (Verified 10/04/19 19:48) Nausea hydrocodone bitartrate [From Vicodin] Adverse Reaction (Verified 10/04/19 19:48) Nausea topiramate [From Topamax] Adverse Reaction (Verified 10/04/19 19:48) memory loss Primary Care Physician: Kelly Vargas DO [Primary Care Provider] - Surgical History: - - 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 Smoking Status: Current every day smoker - Family History Maternal Family History: Reports: No pertinent history Paternal Family History: Reports: No pertinent history Sibling Family History: Reports: No pertinent history Review of Systems General: Denies: Chills, Fever, Malaise, Sweats, Weight loss Cardiovascular: Denies: Chest pain, Palpitations, Heart racing Respiratory: Denies: Dyspnea, Cough, Dyspnea on exertion, Orthopnea, Paroxysmal nocturnal dyspnea Gastrointestinal: Denies: Abdominal pain, Nausea, Vomiting, Diarrhea, Melena, Hematochezia Genitourinary: Denies: Dysuria, Hematuria, Frequency Musculoskeletal: Reports: Swelling. Denies: Myalgias, Arthralgias, Neck pain, Back pain, Extremity Pain Skin: Reports: Rash - To sunburn anterior right and left lower extremity, Wounds - Your wounds right lower extremity and history of cellulitis right leg. Denies: Abscess, Abrasions Neurological: Reports: Headache, Parasthesia. Denies: Weakness Endocrine: Denies: Polyuria, Polydipsia Hematologic: Denies: Easy bruising, Easy bleeding Physical Exam Vital Signs/Narrative: Vital Signs Temp Pulse Resp BP Pulse Ox 10/04/19 19:45 98.0 F 87 18 162/95 H 95 Inital Vital Signs reviewed: Yes General: Well nourished, Well developed, Obese, No Acute Distress Head: Normocephalic, Atraumatic Eyes: Perrl, EOMI ENT: Moist mucous membranes, No rhinorrhea Neck: Supple, Nontender Cardiovascular: Regular rate, Regular rhythm, No murmurs, Normal S1, Normal S2 Respiratory: No distress, CTA bilaterally, Chest nontender Abdomen: Soft, Nontender, Nondistended, Normal bowel sounds Back: Nontender, Normal Inspection Extremities: Nontender, Edema, - - Unilateral swelling of the right leg. There is no palpable cords. There is no pain along the distribution of deep venous system. He has mild discomfort in the calf. There is evidence of sunburn anterior right and left lower extremity mid thigh to ankle. Skin: Normal color, No rash, No Trauma, Rash - Due to sunburn. Negative for: Cyanosis, Diaphoresis, Jaundice Neurological: Alert, Oriented x3, Cranial nerves II-XII grossly intact, Normal Strength, Normal Sensation Psychological: Normal affect, Normal Mood Diagnostic/Tx/Re-eval - Medical Decision Making With unilateral swelling no evidence of cellulitis will obtain venous duplex to rule out DVT. I was informed by radiology that the duplex venous study was negative for DVT. Since there is no warmth, induration, lymphangitis, popliteal angle lymphadenopathy and patient is sunburned over the area will not treat with antibiotics because in my professional medical opinion patient has sunburn and not cellulitis. ED Disposition - Plan for ED Patient: Disposition: Home or Assisted Living Diagnosis: Lymphedema in adult patient, Sunburn Instructions: ED Lymphedema Referrals: Kelly Vargas, DO [Primary Care Provider] - 3-5 Days if not improving
== END 2019-10-04 21:09 | disposition home or self-care (01) ==
PROVIDERS: Emergency Provider Emergency Medicine; PCP Internal Medicine
DX: I89.0 Lymphedema, not elsewhere classified (principal); L55.9 Sunburn, unspecified; E11.9 Type 2 diabetes mellitus without complications; E78.5 Hyperlipidemia, unspecified; G90.50 Complex regional pain syndrome I, unspecified; N40.0 Benign prostatic hyperplasia without lower urinary tract symptoms; E66.9 Obesity, unspecified; F17.200 Nicotine dependence, unspecified, uncomplicated; Z79.82 Long term (current) use of aspirin; Z79.4 Long term (current) use of insulin; Z79.899 Other long term (current) drug therapy; Z88.2 Allergy status to sulfonamides; Z88.5 Allergy status to narcotic agent; Z85.51 Personal history of malignant neoplasm of bladder; Z90.49 Acquired absence of other specified parts of digestive tract
CPT/HCPCS: 93971; 99283

== ENCOUNTER 2021-01-28 01:36 | Inpatient (IN) | payer MEDICARE, SELFPAY ==
[2021-01-28] VITALS (23 sets, daily range): BP systolic 127–161; BP diastolic 78–104; PULSE 71–106; RESP 18–19; TEMP 36.4–37.1; O2SAT 92–98; BMI 34.2; BMI 32.2
--- NOTE | 2021-01-28 01:48 | RAD_ITS ---
EXAM: XR Chest, 1 View CLINICAL INDICATION: 75 years old, Male; chest pain TECHNIQUE: Frontal view of the chest. This report was created using [employer] report generation technology. COMPARISON: None. FINDINGS: Lungs and pleural spaces: Mild bibasilar infiltrates or atelectasis. No pneumothorax. No effusion. Heart: Unremarkable. Cardiac silhouette not enlarged. Mediastinum: Central airways and mediastinal contour are unremarkable. Bones/joints: Degenerative changes right shoulder. Soft tissues: Unremarkable. Vasculature: Tortuous thoracic aorta. RAD/Chest 1 View (Portable) IMPRESSION: Mild bibasilar infiltrates or atelectasis. ASSESSMENT: ABNORMAL report - There are abnormal findings in this report which may be related or unrelated to the reason for the exam. Electronically Signed: Compa Alexis MD at 2:37 EDT Tel , Service support ,
--- NOTE | 2021-01-28 01:48 | EKG12_ITS ---
Test Reason : CP Blood Pressure : / mmHG Vent. Rate : 106 BPM Atrial Rate : 106 BPM P-R Int : 212 ms QRS Dur : 078 ms QT Int : 332 ms P-R-T Axes : 009 -21 054 degrees QTc Int : 441 ms Sinus tachycardia with 1st degree A-V block with Premature atrial complexes Low voltage QRS Borderline ECG Confirmed by ARABELLA CAMP, KEKE ([id number]), editor in chief newspaper ANURAG CORBIN ([id number]) on 02/02/2021 10:36:52 AM Referred By: ROSY Confirmed By:KATARINA BELL MD
--- NOTE | 2021-01-28 01:57 | ED.VIS.CHEST ---
HPI History of Present Illness Chief Complaint: Chest Pain Informant: patient and spouse/S.O. Onset/Context/Timing Onset: Today and Hours Activity at onset: gradual Timing: Continuous Quality: Positive for Indigestion and Pain Location: Substernal Current Severity: Gone Maximum Severity: Mild Worsened By: Nothing Relieved By: Antacids Associated Symptoms: Positive for Nausea, Diaphoresis and Dyspnea; Negative for Cough, Fever and Lightheadedness Narrative Narrative: 75-year-old male history of diabetes, high blood pressure and cholesterol. Prior history of multiple cancers. Denies any cardiac history. Is never had a cardiac catheterization. He had a stress test multiple years ago which she believes was negative. None recently. States around 8:00 tonight while seated at home he got upper sternal chest pain. He states it felt like indigestion. He took Maalox x2. Eventually the pain went away. It lasted around 4 to 5 hours. Resolved around 1 AM. Prior to arrival. Squad brought him in. Both his and squad gave him aspirin. Squad gave him nitro he said his pain was already resolved before that. Denies any history of DVT or PE. Pain was not pleuritic. He has had no hemoptysis. No recent travel, surgery or hospitalization. No calf pain or swelling. Prior Similar Symptoms: Yes Recent Illness/Hospitalization: No CVD Risk Factors: Positive for Hypertension, Diabetes, Hypercholesterolemia and Smoking PE Risk Factors: Negative for Recent Travel/Surgery, Recent Immobilization, Prior DVT or PE, Cancer and OCP + Smoking + >/=35 TAD Risk Factors: Negative for Marfan's Syndrome [facility] Medical History BPH (benign prostatic hyperplasia) Burn of thigh Burn of thigh, left, second degree Cellulitis of right anterior lower leg Cellulitis of right lower extremity Depression Diarrhea Fatigue History of bladder cancer History of colon cancer Hyperlipemia Hypertension Multiple adenomatous polyps Reflex sympathetic dystrophy of right leg Sepsis Tobacco abuse Tobacco abuse counseling Type II diabetes mellitus Wound, open, hip or thigh Home Medications amlodipine 5 mg PO DAILY 11/10/13 [History Last Taken 11/10/13 08:00] metformin 500 mg PO BID 11/10/13 [History Last Taken 11/09/13 22:00] Ibuprofen [Motrin] 800 mg PO Q6H PRN 11/11/13 [History Last Taken 11/09/13 08:00] duloxetine 60 mg PO DAILY 02/03/15 [History Last Taken Unknown] primidone 100 mg PO TID 02/03/15 [History Last Taken Unknown] cholecalciferol (vitamin D3) [Vitamin D3] 5,000 unit PO DAILY 10/12/16 [History Last Taken Unknown] pregabalin [Lyrica] 100 mg PO TID 10/12/16 [History Last Taken Unknown] aspirin 81 mg PO DAILY@0800 10/04/19 [History Last Taken Unknown] bupropion HCl 150 mg PO DAILY 10/04/19 [History Last Taken Unknown] buspirone 15 mg PO TID 10/04/19 [History Last Taken Unknown] insulin degludec-liraglutide 40 unit SQ QHS 10/04/19 [History Last Taken Unknown] rosuvastatin 40 mg tablet 40 mg PO DAILY tab 10/28/20 [History Last Taken Unknown] dapagliflozin [Farxiga] 10 mg PO DAILY 01/28/21 [History Last Taken Unknown] losartan 50 mg PO DAILY 01/28/21 [History Last Taken Unknown] metformin 500 mg PO LUNCH 01/28/21 [History Last Taken Unknown] Allergy/AdvReac Type Severity Reaction Status Date / Time Sulfa (Sulfonamide Allergy Hives Verified 01/28/21 01:41 Antibiotics) acetaminophen [From Vicodin] AdvReac Nausea Verified 01/28/21 01:41 hydrocodone bitartrate AdvReac Nausea Verified 01/28/21 01:41 [From Vicodin] topiramate [From Topamax] AdvReac memory Verified 01/28/21 01:41 loss Family History Father Heart disease CHF (congestive heart failure) Surgical History History of ankle surgery History of appendectomy History of bladder surgery History of cholecystectomy History of colectomy History of colonoscopy Social History Smoking Status: Current every day smoker tobacco type: pipe alcohol intake: current alcohol intake frequency: holidays/special occasions only substance use type: does not use caffeine: Yes what type of physical activity do you participate in: none frequency: does not exercise ROS ROS ED ROS Narrative Denies recent illness. He has had recent chest pain. Review of Systems ROS Unobtainable: Denies due to encephalopathy Constitutional Constitutional ED: Denies fever(s) Eyes Eyes: Denies none ENT ENT ED: Denies ear pain Cardiovascular Cardiovascular: Reports as per HPI and chest pain; Denies palpitations or racing heartbeat Respiratory/Chest Respiratory/Chest: Denies dyspnea Gastrointestinal Gastrointestinal: Reports nausea; Denies abdominal pain Genitourinary Genitourinary ED: Denies dysuria Musculoskeletal Musculoskeletal: Denies myalgias Integumentary Denies rash Neurologic Neurologic: Denies headache(s) Psychiatric Psychiatric: Denies depression Endocrine Endocrinology: Denies polyuria Hematologic/Lymphatic Hematologic/Lymphatic: Denies easy bruising Allergic/Immunologic Allergic/Immunologic ED: Denies urticaria EXAM Physical Exam Narrative Exam Narrative: Older male no acute distress vital signs are stable. On 2 L is 95%. Initial blood pressure 143/88. Currently is pain-free. HEENT exam unremarkable. Neck nontender no JVD. Lungs clear to auscultation bilaterally. Heart regular rate and rhythm rate about 100. No murmur appreciated. Chest wall nontender. Abdomen soft nontender. Moving all 4 extremities. Calves are nontender without edema or cords. Neurologically is awake and alert with no focal motor deficits. Const Vital Signs: 01/28/21 01:37 01/28/21 01:50 01/28/21 01:51 Temperature 98 F Temperature Source Oral Pulse Rate 100 Respiratory Rate 18 Respiratory Effort Normal Blood Pressure 143/88 H Blood Pressure Mean 106 Pulse Ox 92 95 Oxygen Delivery Method Nasal Cannula Nasal Cannula Oxygen Flow Rate (L/min) 2 2 Positive well nourished and well developed; Negative for cachectic, contractures or unkempt General Appearance ED: well developed and NAD; Negative for unkempt, cachectic, contractures or pallor Nutritional Appearance: Negative for cachectic HEENT Reports moist mucous membranes normocephalic and atraumatic Eyes PERRL and EOMs intact bilaterally General Eye ED: Negative for pale conjunctiva or scleral icterus Neck no lymphadenopathy and supple General: Negative for tenderness Chest Wall inspection of chest normal and palpation of chest normal Resp normal respiratory effort and clear to auscultation bilaterally Effort and Inspection: respiratory distress Cardio regular rate, regular rhythm, S1 normal heart sound, S2 normal heart sound and no murmurs Rate: tachycardic GI normal to inspection, nondistended, normoactive bowel sounds, soft to palpation, non-tender, non-distended and no masses Auscultation: Negative for hyperactive bowel sounds Back/Spine no CVA tenderness Extremity normal to inspection General Extremety ED: Negative for edema or tenderness General Extremity: Negative for edema Neuro oriented x3 Sensorium / Orientation: awake, alert, oriented to person, oriented to place and oriented to time Motor Exam: strength 5/5 throughout Psych mental status grossly normal Appearance: Negative for unkempt Skin no rashes or lesions noted and no wounds General Skin Exam: Negative for jaundice or pallor Heart Score History: Moderately Suspicious ECG: Nonspecific Repolarization Age: >/= 65 years Risk Factors: >/= 3 Risk Factors or History of CAD Troponin: >1 - <3 Normal Limit Score: 7 MDM MDM MDM Narrative Medical decision making narrative: 75-year-old male with upper sternal chest pain that he thought was indigestion. Currently is resolved. Is not reproducible. He does have underlying cardiac risk factors but no known history of cardiac disease. Exam benign. Will undergo a cardiac work-up. Repeat exam patient is doing well at 2:50 AM. Discussed and went over all the test results of both he and his . I will speak the hospitalist that the patient admitted for chest pain of uncertain etiology with an elevated troponin. Lab Data Attestation: I reviewed the patient's lab results. Lab results narrative: CBC White count 9. Hemoglobin 17. Electrolytes show potassium 5.4. Gap 11 creatinine 1.75. Glucose 239 and his troponin is elevated 134. Labs: Laboratory Results - last 24 hr 01/28/21 01/28/21 01:50 01:50 WBC 9.0 RBC 5.73 Hgb 17.2 H Hct 52.1 MCV 90.9 MCH 30.0 MCHC 33.0 RDW Std Deviation 43.6 RDW Coeff of Ranjit 13.1 Plt Count 318 MPV 8.8 Immature Gran % (Auto) 0.900 Neut % (Auto) 73.3 H Lymph % (Auto) 13.1 L [place] % (Auto) 8.9 Eos % (Auto) 2.8 Baso % (Auto) 1.0 Absolute Neuts (auto) 6.6 Absolute Lymphs (auto) 1.17 Nucleated RBC % 0 Sodium 135 L Potassium 5.4 H Chloride 101 Carbon Dioxide 23.0 Anion Gap 11 BUN 17 Creatinine 1.75 H Estim Creat Clear Calc 34.20 Est GFR (MDRD) Af Amer 49 L Est GFR (MDRD) Non-Af 40 L BUN/Creatinine Ratio 9.7 L Glucose 234 H Calcium 10.2 H Troponin I High Sens 134 H* Radiography Chest X-Ray - ED: 1 View, Read by ED Physician, Heart, Lungs, Mediastinum, Bony Structures, No Acute Disease and Chronic Changes Diagnostic Testing: Radiology Impression Chest X-Ray 01/28/21 01:48 IMPRESSION: Mild bibasilar infiltrates or atelectasis. ASSESSMENT: ABNORMAL report - There are abnormal findings in this report which may be related or unrelated to the reason for the exam. Electronically Signed: Compa Alexis MD at 2:37 EDT Tel , Service support , Single view portable chest x-ray read both by the radiologist and myself shows no acute normality. Rhythm Strip Rate: 106 Ectopy: PAC(s) EKG Initial EKG: Attestation: I personally reviewed and interpreted this EKG as follows: Interpretation: No Acute Injury Pattern and Sinus Tachycardia Comments: Sinus tachycardia rate of 106 no acute signs of OH or ischemia. Unchanged from prior EKG from October 2013 Prior EKG tracings: available for review Prior: Unchanged Discharge Plan Triage Chief Complaint: Chest Pain ED Provider: Rafy Johnson Dx/Rx/DC Orders Clinical Impression: Chest pain, Hypertension, Type II diabetes mellitus, Tobacco abuse, Elevation of cardiac enzymes Prescriptions: No Action rosuvastatin 40 mg tablet 40 mg PO DAILY RF: 0 amlodipine 5 MG tablet 5 mg PO DAILY RF: 0 metformin 750 MG tablet extended release 24 hr 500 mg PO BID RF: 0 Ibuprofen [Motrin] 800 MG tablet 800 mg PO Q6H PRN (Reason: Pain Or Fever) RF: 0 primidone 50 MG tablet 100 mg PO TID RF: 0 duloxetine 60 MG capsule 60 mg PO DAILY RF: 0 cholecalciferol (vitamin D3) [Vitamin D3] 1,000 UNIT capsule 5,000 unit PO DAILY RF: 0 pregabalin [Lyrica] 100 MG capsule 100 mg PO TID RF: 0 aspirin 81 MG tablet,chewable 81 mg PO DAILY@0800 RF: 0 insulin degludec-liraglutide 3 ML insulin pen 40 unit SQ QHS RF: 0 buspirone 15 MG tablet 15 mg PO TID RF: 0 bupropion HCl 150 MG tablet extended release 24 hr 150 mg PO DAILY RF: 0 metformin 500 mg Tablet Extended Release 24 Hr 500 mg PO LUNCH RF: 0 losartan 50 mg Tablet 50 mg PO DAILY RF: 0 Farxiga 10 mg Tablet 10 mg PO DAILY RF: 0 Primary Care Provider: Kelly Vargas Referrals: Kelly Vargas DO [Primary Care Provider] - Disposition Disposition: Acute Care Hospital [facility]
[2021-01-28 02:05] LABS: Absolute Lymphocyte Count 1.17 X10^3/uL (0.83-4.51); Absolute Neutrophil Count 6.6 X10^3/uL (2.0-7.7); Basophil# 0.09 X10^3/uL; Eosinophil# 0.25 X10^3/uL; Eosinophils% 2.8 % (0-5); Hematocrit 52.1 % (40-54); Hemoglobin 17.2 g/dL (13.0-16.5); Lymphocyte # 1.17 X10^3/ul (0.83-4.51); Lymphocyte % 13.1 % (19-41); Mean Corpuscular Volume 90.9 fL (80-94); Mean Platelet Vol. 8.8 fl (6.2-12.0); Monocyte% 8.9 % (0-10); NRBC Flagged by Analyzer 0 % (0-5); Neutrophil # 6.57 X10^3/uL (2.7-7.7); Neutrophil % 73.3 % (47-70); Platelet Count 318 K/mm3 (150-450); RBC Distribution Width CV 13.1 % (11.6-14.6); RBC Distribution Width SD 43.6 fl (35.1-43.9); Red Blood Count 5.73 M/mm3 (4.6-6.2)
[2021-01-28 02:44] LABS: Anion Gap 11 (5-15); BUN 17 mg/dL (7-18); BUN/Creat Ratio 9.7 RATIO (10-20); Calcium,Total 10.2 mg/dL (8.5-10.1); Chloride 101 mmol/L (98-107); Creatinine, Serum 1.75 mg/dL (0.70-1.30); EST Glomerular Filtration Rate 40 mL/min (>60); Est Glom Filt Rate - Afr Amer 49 mL/min (>60); Glucose 234 mg/dL (74-106); Potassium 5.4 mmol/L (3.5-5.1); Sodium Level 135 mmol/L (136-145); Troponin-I HS 134 pg/mL (3.0-78.0)
[2021-01-28 03:41] LABS: Partial Thromboplast Time 28.1 Seconds (24.1-36.2)
--- NOTE | 2021-01-28 04:00 | HP.PCM.HOS_ITS ---
HPI - General General Date of Admission: 01/28/21 HPI Narrative DAFNE OBANDO, is a 75 M with a past medical history of tobacco abuse, hypertension, hyperlipidemia, and DM-2 who presented to the emergency department [facility] early in the morning on 01/28/2021 complaining of chest pain. The patient denies any previous cardiac history and has never had a cardiac catheterization. The patient reports that he had a stress test several years ago which he believes is negative but is unable to recall entirely. He reports that approximately 8 PM the night prior to presentation he developed acute substernal chest pain while he was seated. He reported it felt like indig estion and he took 2 Maalox at that time. The total time of his pain episode was approximately 4 to 5 hours and it resolved at approximately 1 AM just prior to arrival. Both his and the squad gave him aspirin and he was given nitroglycerin in the squad but the patient indicates his pain had resolved prior to that episode. He had associated symptoms of nausea without emesis, marked diaphoresis, and mild dyspnea. He is currently pain-free at the time of my examination. His vital signs in the emergency department show some elevated blood pressures and some intermittent tachycardia with rates no higher than 106. His oxygen saturation was 97% on room air. His CBC was unremarkable except for some erythrocytosis with a hemoglobin of 17.2. His coags were within normal limits. His BMP demonstrated mild hyponatremia with a sodium of 135, mild hyperkalemia with a potassium of 5.4, and a serum creatinine of 1.75. His baseline is unknown and his most recent serum creatinine that we have available is from 2013 and it was normal at that time. He does however appear to be mildly dehydrated with regards to his other laboratory data. His initial troponin was elevated at 134. His EKG is overall unremarkable and shows no ST-T wave changes consistent with acute ischemia. In the emergency department he was given a full dose aspirin and we were requested to meet the patient for further chest pain work-up. [facility] Medical History BPH (benign prostatic hyperplasia) Burn of thigh Burn of thigh, left, second degree Cellulitis of right anterior lower leg Cellulitis of right lower extremity Depression Diarrhea Fatigue History of bladder cancer History of colon cancer Hyperlipemia Hypertension Multiple adenomatous polyps Reflex sympathetic dystrophy of right leg Sepsis Tobacco abuse Tobacco abuse counseling Type II diabetes mellitus Wound, open, hip or thigh Home Medications amlodipine 5 mg PO DAILY 11/10/13 [History Last Taken 11/10/13 08:00] metformin 500 mg PO BID 11/10/13 [History Last Taken 11/09/13 22:00] Ibuprofen [Motrin] 800 mg PO Q6H PRN 11/11/13 [History Last Taken 11/09/13 08:00] duloxetine 60 mg PO DAILY 02/03/15 [History Last Taken Unknown] primidone 100 mg PO TID 02/03/15 [History Last Taken Unknown] cholecalciferol (vitamin D3) [Vitamin D3] 5,000 unit PO DAILY 10/12/16 [History Last Taken Unknown] pregabalin [Lyrica] 100 mg PO TID 10/12/16 [History Last Taken Unknown] aspirin 81 mg PO DAILY@0800 10/04/19 [History Last Taken Unknown] bupropion HCl 150 mg PO DAILY 10/04/19 [History Last Taken Unknown] buspirone 15 mg PO TID 10/04/19 [History Last Taken Unknown] insulin degludec-liraglutide 40 unit SQ QHS 10/04/19 [History Last Taken Unknown] rosuvastatin 40 mg tablet 40 mg PO DAILY tab 10/28/20 [History Last Taken Unknown] dapagliflozin [Farxiga] 10 mg PO DAILY 01/28/21 [History Last Taken Unknown] losartan 50 mg PO DAILY 01/28/21 [History Last Taken Unknown] metformin 500 mg PO LUNCH 01/28/21 [History Last Taken Unknown] Allergy/AdvReac Type Severity Reaction Status Date / Time Sulfa (Sulfonamide Allergy Hives Verified 01/28/21 01:41 Antibiotics) acetaminophen [From Vicodin] AdvReac Nausea Verified 01/28/21 01:41 hydrocodone bitartrate AdvReac Nausea Verified 01/28/21 01:41 [From Vicodin] topiramate [From Topamax] AdvReac memory Verified 01/28/21 01:41 loss Family History Father Heart disease CHF (congestive heart failure) Surgical History History of ankle surgery History of appendectomy History of bladder surgery History of cholecystectomy History of colectomy History of colonoscopy Social History Smoking Status: Current every day smoker tobacco type: pipe alcohol intake: current alcohol intake frequency: holidays/special occasions only substance use type: does not use caffeine: Yes what type of physical activity do you participate in: none frequency: does not exercise ROS Constitutional Constitutional: Denies anorexia, change in weight, chills, fatigue, fever(s), malaise, night sweats, weakness or other Eyes Eyes: Denies blurry vision, change in eye color, change in vision, discharge from eye(s), double vision, erythema, eye pain, loss of vision or other ENT HEENT: Denies abnormal hearing, dysphagia, ear pain, epistaxis, headache(s), hearing loss, nasal congestion, nasal discharge, post nasal drip, sinus pressure, sore throat or other Cardiovascular Cardiovascular: Reports chest pain and other Details: Diaphoresis ; Denies claudication, dyspnea on exertion, edema, lightheadedness, orthopnea, palpitations, paroxysmal nocturnal dyspnea, rapid heart rate or syncope Respiratory/Chest Respiratory/Chest: Reports shortness of breath at rest; Denies cough, dyspnea, excessive phlegm production, hemoptysis, productive cough, shortness of breath with exertion, wheezing or other Gastrointestinal Gastrointestinal: Reports nausea; Denies abdominal pain, coffee ground emesis, constipation, diarrhea, dyspepsia, hematemesis, hematochezia, loose stools, melena, vomiting or other Genitourinary Genitourinary: Denies burning urination, difficulty urinating, dysuria, hematuria, nocturia, urinary frequency, urinary hesitancy, urinary incontinence, urinary urgency or other Musculoskeletal Musculoskeletal: Denies arthralgias, back pain, joint pain, joint stiffness, joint swelling, myalgias, neck pain or other Neurologic Neurologic: Denies abnormal gait, abnormal speech, confusion, disequilibrium, dizziness, focal weakness, headache(s), numbness, paresthesias, seizure-like activity, seizures, syncope, tingling, tremor(s) or other Psychiatric Psychiatric: Denies anxiety, depression, homicidal ideation, suicidal ideation or other Endocrine Endocrinology: Denies change in body appearance, cold intolerance, excessive sweating, heat intolerance, polydipsia, polyuria or other Hematologic/Lymphatic Hematologic/Lymphatic: Denies anemia, easy bleeding, easy bruising, lymphadenopathy or other Allergic/Immunologic Allergic/Immunologic: Denies rhinitis, hives, eczemia, asthma or other Vital Signs Vital Signs Vital Signs: 01/28/21 01:37 01/28/21 01:50 01/28/21 01:51 Temperature 98 F Temperature Source Oral Pulse Rate 100 Respiratory Rate 18 Respiratory Effort Normal Blood Pressure 143/88 H Blood Pressure Mean 106 Pulse Ox 92 95 Oxygen Delivery Method Nasal Cannula Nasal Cannula Oxygen Flow Rate (L/min) 2 2 01/28/21 03:55 Temperature 98.7 F Temperature Source Temporal Pulse Rate 94 Respiratory Rate 18 Respiratory Effort Blood Pressure 143/101 H Blood Pressure Mean 115 Pulse Ox 97 Oxygen Delivery Method Room Air Oxygen Flow Rate (L/min) Weight Weight: 102.1 kg Body Mass Index (BMI) 34.2 Physical Exam Const alert, oriented x3 and no apparent distress Constitutional Narrative: Obese, elderly white male sitting up in bed, at bedside, patient appears comfortable, nontoxic General Appearance: cooperative HEENT normocephalic, head/scalp atraumatic, hearing grossly normal bilaterally, moist oral mucous membranes and oropharynx normal HEENT Narrative: No thrush, Mallampati 3 Eyes PERRL, EOMs intact bilaterally and conjunctivae normal Eyes Narrative: No scleral icterus Neck no lymphadenopathy, supple, no JVD and no carotid bruits Neck Narrative: Trachea midline, no thyroid enlargement, short thick neck Resp normal respiratory effort, no retractions and no use of accessory muscles Resp Narrative: Diminished diffusely but clear Auscultation: Negative for crackles, rales, rhonchi or wheezes Cardio regular rate, regular rhythm, S1 normal heart sound, S2 normal heart sound, no murmurs, no rub, no gallops, no clicks and no JVD GI normal to inspection, nondistended, normoactive bowel sounds, soft to palpation, non-tender and non-distended Extremity no clubbing, cyanosis or edema Peripheral Pulses: Yes pulses 2+ throughout Skin no rashes or lesions noted, skin turgor normal, no jaundice, no petechiae and no mottling Skin Narrative: Right elbow with bandage in place status post cancer resection Neuro oriented x3, CN's II-XII intact bilaterally, moves all extremities and no focal motor deficits Sensorium / Orientation: awake, alert, oriented to person, oriented to place and oriented to time Speech: speech normal Motor Exam: strength 5/5 throughout Psych affect normal Results Lab / Micro Data Result Diagrams: 01/28/21 01:50 01/28/21 01:50 Labs: Laboratory Results - last 24 hr 01/28/21 01:50: WBC 9.0, RBC 5.73, Hgb 17.2 H, Hct 52.1, MCV 90.9, MCH 30.0, MCHC 33.0, RDW Std Deviation 43.6, RDW Coeff of Ranjit 13.1, Plt Count 318, MPV 8.8, Immature Gran % (Auto) 0.900, Neut % (Auto) 73.3 H, Lymph % (Auto) 13.1 L, [place] % (Auto) 8.9, Eos % (Auto) 2.8, Baso % (Auto) 1.0, Absolute Neuts (auto) 6.6, Absolute Lymphs (auto) 1.17, Nucleated RBC % 0 01/28/21 01:50: Sodium 135 L, Potassium 5.4 H, Chloride 101, Carbon Dioxide 23.0, Anion Gap 11, BUN 17, Creatinine 1.75 H, Estim Creat Clear Calc 34.20, Est GFR (MDRD) Af Amer 49 L, Est GFR (MDRD) Non-Af 40 L, BUN/Creatinine Ratio 9.7 L, Glucose 234 H, Calcium 10.2 H, Troponin I High Sens 134 H* 01/28/21 03:18: PT 13.0, INR 1.0, APTT 28.1 Rhythm Strip Rate: 106 Ectopy: PAC(s) Radiology Impression Chest X-Ray 01/28/21 01:48 IMPRESSION: Mild bibasilar infiltrates or atelectasis. ASSESSMENT: ABNORMAL report - There are abnormal findings in this report which may be related or unrelated to the reason for the exam. Electronically Signed: Compa Alexis MD at 2:37 EDT Tel , Service support , Assessment & Plan Assessment/Plan (1) NSTEMI, initial episode of care: (2) Hyperkalemia: (3) TRUDY (acute kidney injury): (4) S/P skin cancer resection: PLAN: NSTEMI -Troponin elevation without any EKG changes consistent with acute ischemia -Cycle cardiac enzymes -Keep patient n.p.o. for possible cardiac catheterization -Continue statin -Start beta-erma -Continue aspirin -Heparin drip -We will hold off on Brilinta until patient is evaluated by cardiology -Check hemoglobin A1c -Check lipids -Recommend smoking cessation -Cardiology consultation Hyperkalemia -Hold losartan -We will hydrate with normal saline at 75 cc/h -Suspect this is a result of the combination of his TRUDY and losartan use -Repeat BMP in a.m. TRUDY -Baseline serum creatinine is unknown at this time -Most recent data we have is from 2013 at which time his serum creatinine was normal -We will hydrate with normal saline at 75 cc/h -Repeat BMP in a.m. -It is possible that patient has CKD with his history of blood pressure elevation and diabetes but I am able to ascertain that at this time DM-2 -Hold Metformin/dapagliflozin -Continue long-acting basal insulin 40 units at at bedtime -SSI -Accu-Cheks -Check hemoglobin A1c Hypertension -Continue amlodipine -Hold losartan with TRUDY/hyperkalemia -Start metoprolol 25 mg twice daily and titrate up as able Hyperlipidemia -Continue statin -Check lipids Skin cancer status post recent resection left elbow -Patient with sutures in place and to be removed on Tuesday -Continue wound care -No concerns of infection at this time Depression/anxiety -Continue Wellbutrin -Continue BuSpar DVT prophylaxis -Heparin drip -SCDs CODE STATUS -Full code Charges/Coding Visit Charges Inpatient E&M: 30035 Init Hosp L3
--- NOTE | 2021-01-28 05:03 | PCS.PANDOC ---
PANDEMIC DOCUMENTATION INITIATED: Date: 12/08/2020 Time: 190
[2021-01-28] MEDS: HEPARIN/D5w 25,000 UNITS 25,000 UNITS/250 ML IV.SOLN. 14 UNITS IV (05:07)
--- NOTE | 2021-01-28 05:07 | EKG12_ITS ---
Test Reason : AM EKG Blood Pressure : / mmHG Vent. Rate : 074 BPM Atrial Rate : 074 BPM P-R Int : 234 ms QRS Dur : 076 ms QT Int : 462 ms P-R-T Axes : 016 -10 138 degrees QTc Int : 512 ms Sinus rhythm with 1st degree A-V block with Premature atrial complexes Marked T wave abnormality, consider anterolateral ischemia Prolonged QT Abnormal ECG When compared with ECG of 28-JAN-2021 13:35, MANUAL COMPARISON REQUIRED, DATA IS UNCONFIRMED Confirmed by ENDER CAMP, GARRICK ([id number]), science editor ANURAG CORBIN ([id number]) on 02/03/2021 9:56:08 AM Referred By: PHILIP Confirmed By:GARRICK HANDLEY MD
[2021-01-28] MEDS: 0.9% Normal Saline 1,000 ML 75 ML IV (05:09)
[2021-01-28] MEDS: Metoprolol Tartrate 25 MG Tablet PO ×2 (05:12→22:03)
[2021-01-28] MEDS: Heparin Injection (Vial) 5,000 UNIT/ML VIAL 7500 UNIT IV (05:13)
[2021-01-28] MEDS: Pregabalin 50 MG Capsule 100 MG PO ×2 (05:14→13:16)
--- NOTE | 2021-01-28 05:22 | NURSING ---
Pts primary rn aware of 2nd troponin result of 394 at this time.
[2021-01-28 05:23] LABS: ALB/GLOB Ratio 0.8 RATIO (0.9-2.4); AST(SGOT) 35 U/L (15-37); Alanine Aminotransfer ALT/SGPT 38 U/L (16-61); Albumin, Serum 3.6 g/dL (3.2-5.0); Alkaline Phosphatase 85 U/L (45-117); Anion Gap 8 (5-15); BUN 19 mg/dL (7-18); BUN/Creat Ratio 11.4 RATIO (10-20); Calcium,Total 9.5 mg/dL (8.5-10.1); Chloride 104 mmol/L (98-107); Cholesterol 92 mg/dL (200); Creatinine, Serum 1.67 mg/dL (0.70-1.30); EST Glomerular Filtration Rate 43 mL/min (>60); Est Glom Filt Rate - Afr Amer 52 mL/min (>60); Estimated Creatinine Clearance 35.84 ml/min; Globulin 4.4 g/dL (2.2-4.2); Glucose 191 mg/dL (74-106); High Density Lipoprotein 35 mg/dL; Magnesium 2.7 mg/dL (1.6-2.6); Phosphorus 2.6 mg/dL (2.5-4.9); Potassium 5.6 mmol/L (3.5-5.1); Sodium Level 136 mmol/L (136-145); Triglycerides 151 mg/dL; Troponin-I HS 394 pg/mL (3.0-78.0); Very Low Density Lipoprotein 30 mg/dL (5-40)
[2021-01-28] MEDS: busPIRone 15 MG TABLET PO ×3 (05:40→22:04)
[2021-01-28] MEDS: Sodium Polystyrene Sulfonate 15 GM/60 ML UDC PO (06:29)
[2021-01-28 07:00] LABS: Bedside Glucose 149 mg/dL (70-110)
[2021-01-28] MEDS: Aspirin 81 MG TAB.CHEW PO (07:39)
--- NOTE | 2021-01-28 07:41 | CON.PCM.CA_ITS ---
Assessment & Plan Assessment/Plan (1) NSTEMI, initial episode of care: PLAN: The patient does have multiple cardiovascular risk factors. He presents with symptoms concerning for an acute coronary syndrome. His cardiac enzymes are abnormal concerning for an acute non-ST segment elevation [place]. His ECG did not demonstrate any acute ST/T wave changes. He has been referred for further evaluation with diagnostic cardiac catheterization. The procedure and risks have been discussed with him. He is agreeable to this approach. In the interim the patient will continue medical therapy as deemed appropriate. (2) Hyperlipemia: PLAN: The patient has a history of hyperlipidemia. He has been on lipid-lowering therapy with an HMG Co.A reductase inhibitor/statin. (3) Hypertension: QUALIFIERS: Hypertension type: essential hypertension Qualified Code(s): I10 - Essential (primary) hypertension PLAN: The patient has a history of hypertension. He has been on medical management. (4) Type II diabetes mellitus: PLAN: The patient will continue evaluation care per internal medicine. (5) TRUDY (acute kidney injury): PLAN: The patient is noted to have elevation of his creatinine level. He states he believes his oral intake has been adequate recently. He will continue his cardiovascular evaluation as noted based upon his acute coronary syndrome/acute non-ST segment elevation [place]. His renal function will need to be followed and taken into consideration with r espect to adjustment of medications, etc. (6) Hyperkalemia: PLAN: His potassium level was noted to be somewhat elevated. This will need to be followed during his clinical course with further evaluation and care as deemed appropriate. Addt'l Comments This note was generated using a voice recognition system and there may be incorrect words, spelling or punctuation that were not noted when reviewing the office note prior to saving. HPI Consult Data Date of Consult: 01/28/21 HPI Narrative HPI Narrative: DAFNE OBANDO, is a 75 year old white male who presents for cardiovascular evaluation based on concerns of an acute non-STEMI superimposed upon a history of hyperlipidemia, hypertension, and diabetes mellitus. The patient states that yesterday evening he developed substernal chest discomfort that radiated up to the base of his neck and felt like indigestion . He states he did have nausea but no emesis. He became diaphoretic. He denied any acute respiratory related changes, palpitations, or loss of consciousness. He did attempt oral antacids at home with initially a question of partial relief of his symptoms but then return of his symptoms. He states the EMS was subsequently summoned. By the time of EMS arrival he was feeling somewhat better. However he states he did receive aspirin and nitroglycerin sublingual from the EMS. He is not convinced the nitroglycerin sublingual had a positive impact on his symptoms. He does state that after receiving nitroglycerin sublingual he developed a headache. He was [facility] evaluation. He was noted on subsequent laboratory studies to have elevation of his high-sensitivity troponin I levels. His ECG demonstrated sinus rhythm with the appearance of a prolonged PA interval and PACs and no acute ST/T wave changes. His chest x-ray report is as noted below. He was placed in the PCU for further evaluation care with medical management including IV heparin. At the present time he states he is feeling back to his baseline without ongoing symptoms. There has been no report of any orthopnea or PND or peripheral pitting edema. [facility] Medical History BPH (benign prostatic hyperplasia) Burn of thigh Burn of thigh, left, second degree Cellulitis of right anterior lower leg Cellulitis of right lower extremity Depression Diarrhea Fatigue History of bladder cancer History of colon cancer Hyperlipemia Hypertension Multiple adenomatous polyps Reflex sympathetic dystrophy of right leg Sepsis Tobacco abuse Tobacco abuse counseling Type II diabetes mellitus Wound, open, hip or thigh Home Medications amlodipine 5 mg PO DAILY 11/10/13 [History Last Taken 11/10/13 08:00] metformin 500 mg PO BID 11/10/13 [History Last Taken 11/09/13 22:00] Ibuprofen [Motrin] 800 mg PO Q6H PRN 11/11/13 [History Last Taken 11/09/13 08:00] duloxetine 60 mg PO DAILY 02/03/15 [History Last Taken Unknown] primidone 100 mg PO TID 02/03/15 [History Last Taken Unknown] cholecalciferol (vitamin D3) [Vitamin D3] 5,000 unit PO DAILY 10/12/16 [History Last Taken Unknown] pregabalin [Lyrica] 100 mg PO TID 10/12/16 [History Last Taken Unknown] aspirin 81 mg PO DAILY@0800 10/04/19 [History Last Taken Unknown] bupropion HCl 150 mg PO DAILY 10/04/19 [History Last Taken Unknown] buspirone 15 mg PO TID 10/04/19 [History Last Taken Unknown] insulin degludec-liraglutide 40 unit SQ QHS 10/04/19 [History Last Taken Un known] rosuvastatin 40 mg tablet 40 mg PO DAILY tab 10/28/20 [History Last Taken Unknown] dapagliflozin [Farxiga] 10 mg PO DAILY 01/28/21 [History Last Taken Unknown] losartan 50 mg PO DAILY 01/28/21 [History Last Taken Unknown] metformin 500 mg PO LUNCH 01/28/21 [History Last Taken Unknown] Allergy/AdvReac Type Severity Reaction Status Date / Time Sulfa (Sulfonamide Allergy Hives Verified 01/28/21 01:41 Antibiotics) acetaminophen [From Vicodin] AdvReac Nausea Verified 01/28/21 01:41 hydrocodone bitartrate AdvReac Nausea Verified 01/28/21 01:41 [From Vicodin] topiramate [From Topamax] AdvReac memory Verified 01/28/21 01:41 loss Family History Father Heart disease CHF (congestive heart failure) Surgical History History of ankle surgery History of appendectomy History of bladder surgery History of cholecystectomy History of colectomy History of colonoscopy Social History (Updated 01/28/21 @ 04:58 by Shruthi Manzanares) household members: spouse housing: house Smoking Status: Current every day smoker tobacco type: pipe alcohol intake: current alcohol intake frequency: holidays/special occasions only substance use type: does not use caffeine: Yes what type of physical activity do you participate in: none frequency: does not exercise ROS Constitutional Constitutional: Reports as per HPI Eyes Eyes: Reports as per HPI ENT HEENT: Reports as per HPI Cardiovascular Cardiovascular: Reports chest pain and chest pain at rest Respiratory/Chest Respiratory/Chest: Reports as per HPI Gastrointestinal Gastrointestinal: Reports as per HPI Genitourinary Genitourinary: Reports as per HPI Musculoskeletal Musculoskeletal: Reports as per HPI Integumentary Integumentary: Reports as per HPI Neurologic Neurologic: Reports as per HPI Procedure Criteria Type of Procedure Procedure Type: Elective Elective Risks - COVID COVID Risk Discussion: The surgeon/proceduralist and patient have discussed in detail the risk of exposure to and/or potential harm posed by the COVID-19 virus with having a surgery/procedure at this time versus the risk of delaying the surgery/procedure. It is not possible to know either the risk of delaying the surgery or procedure or chance of getting an infection with perfect accuracy, but a joint decision was made between the patient and the surgeon/proceduralist to proceed at this time with the scheduled surgery/procedure as indicated on the consent form. Objective Data Vital Signs: Vital Signs Temp Pulse Resp BP Pulse Ox 97.6 F L 87 18 144/99 H 98 01/28/21 04:45 01/28/21 06:36 01/28/21 04:45 01/28/21 05:12 01/28/21 05:23 Oxygen Flow Rate (L/min) 2 Oxygen Delivery Method Room Air Weight: 212 lb 1.355 oz Body Mass Index (BMI) 32.2 Intake & Output: Intake and Output for Last 24 Hours 01/26/21 01/27/21 01/28/21 23:59 23:59 23:59 Intake Total 23.33 / 23.33 Balance 23.33 / 23.33 Lab / Micro Data Result Diagrams: 01/28/21 07:44 01/28/21 04:30 Labs: Laboratory Results - last 24 hr 01/28/21 01:50: WBC 9.0, RBC 5.73, Hgb 17.2 H, Hct 52.1, MCV 90.9, MCH 30.0, MCHC 33.0, RDW Std Deviation 43.6, RDW Coeff of Ranjit 13.1, Plt Count 318, MPV 8.8, Immature Gran % (Auto) 0.900, Neut % (Auto) 73.3 H, Lymph % (Auto) 13.1 L, [place] % (Auto) 8.9, Eos % (Auto) 2.8, Baso % (Auto) 1.0, Absolute Neuts (auto) 6.6, Absolute Lymphs (auto) 1.17, Nucleated RBC % 0 01/28/21 01:50: Sodium 135 L, Potassium 5.4 H, Chloride 101, Carbon Dioxide 23.0, Anion Gap 11, BUN 17, Creatinine 1.75 H, Estim Creat Clear Calc 34.20, Est GFR (MDRD) Af Amer 49 L, Est GFR (MDRD) Non-Af 40 L, BUN/Creatinine Ratio 9.7 L, Glucose 234 H, Calcium 10.2 H, Troponin I High Sens 134 H* 01/28/21 03:18: PT 13.0, INR 1.0, APTT 28.1 01/28/21 04:30: Sodium 136, Potassium 5.6 H, Chloride 104, Carbon Dioxide 24.0, Anion Gap 8, BUN 19 H, Creatinine 1.67 H, Estim Creat Clear Calc 35.84, Est GFR (MDRD) Af Amer 52 L, Est GFR (MDRD) Non-Af 43 L, BUN/Creatinine Ratio 11.4, Glucose 191 H, Calcium 9.5, Phosphorus 2.6, Magnesium 2.7 H, Total Bilirubin 0.30, AST 35, ALT 38, Alkaline Phosphatase 85, Troponin I High Sens 394 H*, Total Protein 8.0, Albumin 3.6, Globulin 4.4 H, Albumin/Globulin Ratio 0.8 L, Triglycerides 151, Cholesterol 92, LDL Cholesterol 27, VLDL Cholesterol 30, HDL Cholesterol 35 L 01/28/21 06:28: POC Glucose 149 H Rhythm Strip Rate: 106 Ectopy: PAC(s) Cardiology Labs/Tests 01/28/21 01:50: WBC 9.0, RBC 5.73, Hgb 17.2 H, Hct 52.1, MCV 90.9, MCH 30.0, MCHC 33.0, Plt Count 318, MPV 8.8, Immature Gran % (Auto) 0.900, Neut % (Auto) 73.3 H, Lymph % (Auto) 13.1 L, [place] % (Auto) 8.9, Eos % (Auto) 2.8, Baso % (Auto) 1.0, Absolute Neuts (auto) 6.6, Nucleated RBC % 0 01/28/21 01:50: Sodium 135 L, Potassium 5.4 H, Chloride 101, Carbon Dioxide 23.0, Anion Gap 11, BUN 17, Creatinine 1.75 H, Est GFR (MDRD) Af Amer 49 L, Est GFR (MDRD) Non-Af 40 L, BUN/Creatinine Ratio 9.7 L, Glucose 234 H, Calcium 10.2 H 01/28/21 03:18: PT 13.0, INR 1.0, APTT 28.1 01/28/21 04:30: Sodium 136, Potassium 5.6 H, Chloride 104, Carbon Dioxide 24.0, Anion Gap 8, BUN 19 H, Creatinine 1.67 H, Est GFR (MDRD) Af Amer 52 L, Est GFR (MDRD) Non-Af 43 L, BUN/Creatinine Ratio 11.4, Glucose 191 H, Calcium 9.5, Phosphorus 2.6, Magnesium 2.7 H, Total Bilirubin 0.30, Triglycerides 151, Cholesterol 92, LDL Cholesterol 27, VLDL Cholesterol 30, HDL Cholesterol 35 L Rhythm: Sinus rhythm EKG: As noted above Radiography Diagnostic Testing: Radiology Impression Chest X-Ray 01/28/21 01:48 IMPRESSION: Mild bibasilar infiltrates or atelectasis. ASSESSMENT: ABNORMAL report - There are abnormal findings in this report which may be related or unrelated to the reason for the exam. Electronically Signed: Compa Alexis MD at 2:37 EDT Tel , Service support ,
--- NOTE | 2021-01-28 07:48 | CASEMGMT ---
According to the [facility] website, the following are in-network tertiary facilities: [facility], [facility], [facility], [facility], [facility], [facility], and . Jennifer CALDERA CM
[2021-01-28 07:56] LABS: Absolute Lymphocyte Count 2.27 X10^3/uL (0.83-4.51); Absolute Neutrophil Count 6.4 X10^3/uL (2.0-7.7); Eosinophil# 0.23 X10^3/uL; Eosinophils% 2.2 % (0-5); Hematocrit 48.4 % (40-54); Hemoglobin 16.5 g/dL (13.0-16.5); Lymphocyte # 2.27 X10^3/ul (0.83-4.51); Lymphocyte % 22.1 % (19-41); Mean Corp Hgb Conc 34.1 g/dL (32-36); Mean Corpuscular Hgb 30.3 pg (27.0-32.0); Mean Corpuscular Volume 88.8 fL (80-94); Mean Platelet Vol. 8.6 fl (6.2-12.0); Monocyte# 1.17 X10^3/uL; Monocyte% 11.4 % (0-10); NRBC Flagged by Analyzer 0 % (0-5); Neutrophil # 6.43 X10^3/uL (2.7-7.7); Neutrophil % 62.6 % (47-70); Platelet Count 333 K/mm3 (150-450); RBC Distribution Width CV 13.1 % (11.6-14.6); Red Blood Count 5.45 M/mm3 (4.6-6.2); White Blood Count 10.3 K/mm3 (4.4-11.0)
[2021-01-28 08:31] LABS: Hemoglobin A1c 7.7 % (3.8-5.6)
[2021-01-28 08:47] LABS: Troponin-I HS 539 pg/mL (3.0-78.0)
--- NOTE | 2021-01-28 09:17 | ECHOCS_ITS ---
Reason For Study: S/P KS Procedure This was a 2D Doppler, Color Flow transthoracic echocardiogram. The study was technically difficult. Contrast injection was performed. Exam performed portable in patient room. Left Ventricle Normal LV size. Mild segmental systolic dysfunction (see wall motion). The estimated ejection fraction is 45 %. No evidence for diastolic dysfunction. Mid-Anterior : Hypokinetic. Mid-Lateral : Hypokinetic. Mid-inferoseptal : Akinetic. Mid-anteroseptal : Akinetic. [place] : Akinetic. Right Ventricle Normal RV size. Normal systolic function. Atria The left atrium is mildly enlarged. Normal right atrium. No doppler evidence for ASD. Mitral Valve There is mild mitral annular calcification. Extension of the mitral annular calcification onto the base of the posterior mitral valve leaflet. Mild focal mitral valve calcification of the anterior leaflet. Mild (1+) mitral valve insufficiency. Tricuspid Valve Normal tricuspid valve. Trivial tricuspid valve insufficiency. Unable to estimate RV systolic pressure/pulmonary artery pressure due to technically difficult study. Aortic Valve Trisinus/trileaflet aortic valve. Mild diffuse aortic valve thickening. Moderate focal aortic valve calcification. Pulmonic Valve The pulmonic valve is not well visualized. Trivial pulmonic valve insufficiency. Great Vessels Normal sized aortic root. Calcified aortic root. Pericardium/Pleural No pericardial effusion. Medication Diluted definity 2ml given slow IV push to enhance endocardial definition. MMode/2D Measurements & Calculations LVIDd: 3.4 cm IVSd: 1.3 cm LVOT diam: 2.0 cm LVIDs: 2.1 cm LVPWd: 1.2 cm FS: 36.1 % LVOT area: 3.2 cm2 Ao root diam: 3.9 cm LAV(MOD-bp): 32.3 ml LA A4 area: 14.2 cm2 LAV(MOD-bp) Indexed: 15.4 ml/m2 LAV(MOD-sp2): 28.9 ml LAV(MOD-sp4): 31.7 ml LA dimension(2D): 2.2 cm RA A4 area: 12.9 cm2 Doppler Measurements & Calculations MV E max chandler: 69.1 cm/sec Lat Peak E' Chandler: 6.9 cm/sec Med Peak E' Chandler: 5.1 cm/sec MV A max chandler: 83.5 cm/sec E/E' lat: 10.0 E/E' med: 13.5 MV E/A: 0.83 Ao V2 max: 86.6 cm/sec LV V1 max: 62.2 cm/sec PA V2 max: 47.1 cm/sec Ao max P.0 mmHg LV V1 max P.5 mmHg ASHLYN(V,D): 2.3 cm2 ECHO/Echo Complete W/ Contrast Interpretation Summary The study was technically difficult. Contrast injection was performed. Mild segmental systolic dysfunction (see wall motion). The estimated ejection fraction is 45 %. The left atrium is mildly enlarged. There is mild mitral annular calcification. Extension of the mitral annular calcification onto the base of the posterior mi tral valve leaflet. Mild focal mitral valve calcification of the anterior leaflet. Mild (1+) mitral valve insufficiency. Trivial tricuspid valve insufficiency. Mild diffuse aortic valve thickening. Moderate focal aortic valve calcification. Trivial pulmonic valve insufficiency. Calcified aortic root. Unable to estimate RV systolic pressure/pulmonary artery pressure due to techni christ difficult study. No evidence for diastolic dysfunction. Ordering Physician: Jonathan Nelson Referring Physician: Kelly Vargas M.D. Performed By: Cherelle Mcclain [facility]
--- NOTE | 2021-01-28 09:17 | CL.D_ITS ---
Patient Name: DAFNE OBANDO Study Date: 01/28/2021 Performing: Jonathan Nelson MD Ht: 68.11 inches 173 cm : 1945 Wt: 211.64 lbs 96 kg Age: 75 Gender: male BSA: 2.1 PROCEDURE(S) PERFORMED LC18-EDU/COR/LV HN26-QBP W OR WO PTCA, SINGLE CORONARY ARTERY CLINICAL PROFILE AND INDICATIONS Indications: ACS <= 24 hrs Heart Failure: None Stress/Imaging Stress/Image Study Performed: No Angina Classification Anginal Classification w/in 2 Weeks: CCS IV CAD Presentations: Non-STEMI. CONCLUSIONS Elevated Left Ventricular End Diastolic Pressure Segmented LV systolic dysfunction- Mild LVEF: by LV gram 55 % [place] Multivessel CAD RECOMMENDATIONS Risk factor modification Medical therapy Referred for immediate PCI DESCRIPTION OF PROCEDURE The patient arrived to the procedure lab. The risks and benefits of the procedure as well as a full d escription of our services here and current unavailability of surgical backup were fully explained to the patient and/or their significant other prior to the catheterization. The Timeout was completed, verifying the correct patient and procedure. The patient's procedural site was prepped and draped in the usual fashion. Local anesthetic was given subcutaneously to right radial region with Lidocaine 2% . Using a modified Seldinger technique, arterial access was obtained via the right radial artery, a 6 Fr sheath was inserted. Right Coronary Artery selective angiography was then performed in multiple v iews using a 5 Fr. 4.0 [place] catheter. Left Coronary Artery selective angiography was performed in mu ltiple views using a 5 Fr. JL3.5 catheter. Left Ventriculography was performed in REYES projection usin g a 5 Fr. [place] catheter. LV to AO pullback pressures were then recorded. CORONARY ANGIOGRAPHY DOMINANCE: Right Dominant LEFT HEART ASSESSMENT Left Ventricular Ejection Fraction: by LV Gram 55 % Anterior Hypokinesis. Apical Hypokinesis Elevated Left Ventricular End Diastolic Pressure LVEDP: 18 mmHg LEFT MAIN: Angiographically normal LEFT ANTERIOR DESCENDING ARTERY: PROX LAD: diffuse: eccentric: hazy: 90 % Stenosis MID LAD: smooth: 25 % Stenosis CIRCUMFLEX ARTERY: Mild luminal irregularities OM 1: Proximal - diffuse: 25 % Stenosis RIGHT CORONARY ARTERY: Mild luminal irregularities DISTAL RCA: smooth: 25 % Stenosis, eccentric: 25 % Stenosis COMPLICATIONS PROCEDURE MEDICATIONS Fentanyl 50 mcg IV Versed 1 mg IV Oxygen: 2 L/min via nasal cannula Brilinta 180 mg PO @ 01/28/2021 09:03:33 Heparin given IA 01/28/2021 08:46:52 Verapamil 2.5mg, Ntg 100mcgs, 3000 units of Heparin given IA 01/28/2021 08:46:52 SUMMARY OF HEMODYNAMIC DATA Time AIR REST ECG 08:23:50 AO 82/66 (75) SA 08:52:47 AO 88/65 (77) 08:52:52 LV 129/-13, 18 09:01:30 LV 126/-10, 22 09:02:41 LVp 127/-11, 21 09:02:47 AOp 121/66 (92) 09:02:52 Signed By Jonathan Nelson MD On 01/28/2021 09:16:43 Jonathan Nelson MD
--- NOTE | 2021-01-28 10:30 | EKG12_ITS ---
Test Reason : CP ADMISSION Blood Pressure : / mmHG Vent. Rate : 092 BPM Atrial Rate : 092 BPM P-R Int : 218 ms QRS Dur : 072 ms QT Int : 348 ms P-R-T Axes : 024 -13 075 degrees QTc Int : 430 ms Sinus rhythm with 1st degree A-V block with Premature atrial complexes Otherwise normal ECG When compared with ECG of 28-JAN-2021 01:41, MANUAL COMPARISON REQUIRED, DATA IS UNCONFIRMED Confirmed by ENDER CAMP, GARRICK ([id number]), manuscript editor ANURAG CORBIN ([id number]) on 02/03/2021 10:01:39 AM Referred By: GOYO Confirmed By:GARRICK HANDLEY MD
--- NOTE | 2021-01-28 10:41 | CRPHASE1 ---
Patient Communication PHII Cardiac Rehab Discussed with Patient:: Yes Guide to Cardiac Rehab Given to Patient:: Yes Cardiac Rehab Facility Choice List Given to Patient:: Yes Choice Program [facility] [facility] [place] PHII:: Communication Given to CR Book Store Associate:: Jonathan Nelson Phase II Cardiac Rehab:: Yes Sessions:: 36 sessions - 3 days/wk, 12 weeks Cardiac Rehabilitation Info Cardiac Rehabilitation Program Information: Cardiac Rehabilitation is important for patients like you who are recovering from a heart problem. Cardiac rehabilitation programs are recognized as integral to the continued care of the patient with coronary heart disease. The cardiac rehabilitation program is designed to optimize a patient's physical, psychological, and social functioning. Health caretaker work in cardiac rehabilitation programs and assist you with getting the treatments you need to get stronger and healthier - like exercise, healthy eating habits, and medications. Cardiac rehabilitation has been show to help people with heart problems live longer and have better life enjoyment than people who do not go to cardiac rehabilitation. Please contact the Cardiac Rehabilitation Program at [facility] at in two weeks if you have not heard from them.
--- NOTE | 2021-01-28 10:44 | CRPH1.INST_ITS ---
General Education CAD and cardiac anatomy and function:: Patient communicates acknowledgment, Needs reinforcement Explanation of diagnoses and procedures:: Patient communicates acknowledgment, Needs reinforcement Sign/Symptoms of NH:: Patient communicates acknowledgment, Needs reinforcement Antiplatelet therapy: Patient communicates acknowledgment, Needs reinforcement Proper use of NTG-SL: Patient communicates acknowledgment, Needs reinforcement Emergency procedures and activation of EMS: Patient communicates acknowledgment, Needs reinforcement Compliance of all prescribed medications: Patient communicates acknowledgment, Needs reinforcement Smoking Patient Nicotine/Smoking Risk Factors Are:: Cigarettes Recommendations Include:: Smoking cessation strategies/Smoking packet, Participation in a smoking cessation program Nicotine/Smoking Response Code:: Patient communicates acknowledgment, Needs re inforcement Dyslipidemia Patient Dyslipidemia Risk Factors Are:: Total Cholesterol, Triglycerides, HDL, LDL Recommendations Include:: Lipid profile not available, Reviewed NCEP/ATP guidelines, Therapeutic Lifestyle Change dietary guidelines Dyslipidemia Response Code:: Patient communicates acknowledgment, Needs reinforcement Overweight/Obesity Patient Overweight/Obesity Risk Factors Are:: Obesity - > or = 30 Recommendations Include:: Weight loss of 5-10%, Reduced calorie diet, Exercise 5-7 times/week Overweight/Obesity:: Patient communicates acknowledgment, Needs reinforcement Hypertension Recommendations Include:: BP <130/80 if diabetic, DASH dietary guidelines, Decrease/maintain normal body weight, Moderation of ETOH Hypertension:: Patient communicates acknowledgment, Needs reinforcement Diabetes Patient Diabetes Risk Factors Are:: Elevated blood sugars Recommendations Include:: Maintain fasting blood sugars 70-110 md/dL, Maintain HgbA1c of 6% or less, Monitor blood sugar as prescribed, Diabetic dietary guidelines, Decrease/maintain body weight Diabetes:: Patient communicates acknowledgment, Family communicates acknowledgment Stress Patient Stress Risk Factors Are:: Patient denies stress as a risk factor Recommendations Include:: Identification of stressors, and assessment of coping skills, Stress management techniques Stress Response Code:: Patient communicates acknowledgment, Needs reinforcement
[2021-01-28] MEDS: DULoxetine Hcl 60 MG Capsule PO (10:55)
[2021-01-28] MEDS: Primidone 50 MG Tablet 100 MG PO ×3 (10:55→16:21)
[2021-01-28] MEDS: buPROPion (XL) 150 MG TABLET.XL PO (10:55)
[2021-01-28] MEDS: amLODIPine 5 MG Tablet PO (10:55)
--- NOTE | 2021-01-28 10:58 | CL.I_ITS ---
Patient Name: DAFNE OBANDO Study Date: 01/28/2021 Performing: Michael Flower MD Ht: 68.11 inches 173 cm : 1945 Wt: 211.64 lbs 96 kg Age: 75 Gender: male BSA: 2.1 PROCEDURE(S) PERFORMED [id number] W OR WO PTCA, SINGLE CORONARY ARTERY CLINICAL PROFILE AND CO-MORBIDITIES Indications: ACS <= 24 hrs Heart Failure: None Stress/Imaging Stress/Image Study Performed: No Angina Classification Anginal Classification w/in 2 Weeks: CCS IV CAD Presentations: Non-STEMI. CONCLUSIONS Successful JOJO to pLAD RECOMMENDATIONS DESCRIPTION OF PROCEDURE The patient arrived to the procedure lab. The risks and benefits of the procedure as well as a full d escription of our services here and current unavailability of surgical backup were fully explained to the patient and/or their significant other prior to the catheterization. The Timeout was completed, verifying the correct patient and procedure. The patient's procedural site was prepped and draped in the usual fashion. Local anesthetic was given subcutaneously to right radial region with Lidocaine 2% Using a modified Seldinger technique,arterial access was obtained via the right radial artery, a 6Fr sheath was inserted. Right Coronary Artery selective angiography was then performed in multiple view s using a 5 Fr. 4.0 [place] catheter. Left Coronary Artery selective angiography was performed in multi ple views using a 5 Fr. JL3.5 catheter. Left Ventriculography was performed in REYES projection using a 5 Fr. Pigtail catheter. LV to AO pullback pressures were then recorded.The images were reviewed and options discussed. A decision was then made to proceed with an Intervention, IVUS or oth er adjunct procedure. XB3.0 Guide catheter was inserted and engaged into the LCA. BMW Guide wire was advanced to the LA D. 3.0X12 EMERGE Balloon catheter was inserted. PTCA balloon inflated at 6 atms for 13 secs. Angiogra m performed post balloon dilatation. ORSIRO 4X18 Drug Eluting stent was inserted. Angiogram performed post stent deployment. 4X12 NC EMERGE Balloon catheter was inserted. PTCA balloon inflated at 12 rosemary s for 20 secs. Angiogram performed post balloon dilatation. Angiogram performed post balloon dilatati on. The arterial sheath was pulled and a TR Band was applied for hemostasis INTERVENTION INFORMATION LESION SITE: LAD (Proximal) Lesion Complexity: High/C, chronic total occlusion: No, lesion at bifurcation: No, thrombus present: No, lesion length: 15 mm, culprit lesion: Yes, Previously treated lesion: No Pre Stenosis: 95 % Pre intervention CATHY flow: 3 PROCEDURE: Drug Eluting Stent with pre and post dilatation Post Stenosis: 0 % Post intervention CATHY flow: 3 Lesion Devices: Cardinal 6 Fr XB3.0 100cm Guide Catheter Benjamin .014 BMW Steinauer Straight 190cm Clarence Sci EMERGE MR 3.00x12 BALLOON Biotronik Orsiro MR JOJO 4.0x18 Clarence Sci NC EMERGE MR 4.00x12 BALLOON COMPLICATIONS No Complications PROCEDURE MEDICATIONS Fentanyl 50 mcg IV Versed 1 mg IV Fentanyl 50 mcg IV Versed 1 mg IV Oxygen: 2 L/min via nasal cannula Oxygen: 3 L/min via nasal cannula Brilinta 180 mg PO @ 01/28/2021 09:03:33 Heparin given IA 01/28/2021 08:46:52 Heparin 7000 unit(s) IV 01/28/2021 09:41:07 Verapamil 2.5mg, Ntg 100mcgs, 3000 units of Heparin given IA 01/28/2021 08:46:52 SUMMARY OF HEMODYNAMIC DATA Time AIR REST ECG 08:23:50 AO 82/66 (75) SA 08:52:47 AO 88/65 (77) 08:52:52 LV 129/-13, 18 09:01:30 LV 126/-10, 22 09:02:41 LVp 127/-11, 21 09:02:47 AOp 121/66 (92) 09:02:52 Signed By Michael Flower MD On 01/28/2021 10:57:16 Michael Flower MD
--- NOTE | 2021-01-28 11:00 | CASEMGMT ---
VERENICE MAX assessment: Face to Face with patient for initial transition planning/care coordination assessment. VERENICE MAX introduced self and role at [facility], pt/ voice understanding and consent to assessment. Pt is sitting up in bed on room air s/p heart cath with intervention and falls to sleep when not verbally stimulated. assists in answering questions. Pt is A/Ox4. Care providers, pharmacy, and demographics verified. Presentation: Pt c/o chest pain since 8pm Admitting dx: NSTEMI PCP: Sam Specialists: Teodora, PM; Slava, psych; Nicolle, uro Preferred Pharmacy: [facility] Insurance: AeR Prescription Benefit: AeR Living Will/HPOA: Pt does not have LW/HPOA and declines AD info. LNOK: Claribel Yosephjerad, Living Arrangements: Pt states lives with on main level of 2 story home and states no concerns at home. Pt is independent w/ ADL's. Transportation: Pt/ drives and states no transportation concerns. DME/HHC: Pt states has the following DME: cane, grab bars, and tub bench. Pt states no need for any further DME. Pt states no hx of HHC or SNF. Pt states no concerns with going home at time of discharge. Pt is retired. Pt does not smoke a pipe and does not drink ETOH. Pt voices no further concerns/needs. CM to follow for any further discharge planning/needs. Advised pt to ask for CM if any further questions/concerns/needs arise, voices understanding. Pt Goal: Home Plan: Home [place] VERENICE MAX
[2021-01-28 11:55] LABS: Bedside Glucose 102 mg/dL (70-110)
--- NOTE | 2021-01-28 13:11 | EKG12_ITS ---
Test Reason : RYHTUM Blood Pressure : / mmHG Vent. Rate : 079 BPM Atrial Rate : 079 BPM P-R Int : 212 ms QRS Dur : 076 ms QT Int : 380 ms P-R-T Axes : -15 -28 100 degrees QTc Int : 435 ms Sinus rhythm with 1st degree A-V block T wave abnormality, consider lateral ischemia Abnormal ECG When compared with ECG of 28-JAN-2021 12:02, MANUAL COMPARISON REQUIRED, DATA IS UNCONFIRMED Confirmed by ENDER CAMP, GARRICK ([id number]), visual effects editor ANURAG CORBIN ([id number]) on 02/03/2021 9:59:07 AM Referred By: Confirmed By:GARRICK HANDLEY MD
--- NOTE | 2021-01-28 13:16 | CHAPLAIN ---
Type of Pastoral Visit _x__ Initial Visit ___ Follow-up Visit ___ On-call Visit ___ General Patient Visit ___ Spiritual Assessment ___ Family Conference ___ Bereavement ___ Rapid Response ___ Code Blue ___ Other (describe below) Pastoral Care Referral From _x__ Patient ___ Family ___ Nurse ___ Physician ___ Sinter Machine Operator ___ Outreach Educator ___ Other (describe below) Sacrament/Intervention _x__ Active listening ___ Anointing ___ Anabaptist ___ Bereavement ___ Communion _x__ Caron exploration ___ ___ Life review _x__ Prayer ___ Reconciliation ___ Sacrament of Sick ___ Supportive presence ___ Wedding ___ Other (describe below) Pastoral Comments patient had just returned from heart cath; spouse is with patient; after activity subsided in the room offer of support and presence was given to pt and spouse; spouse and pt identify themselves as believers and find help in their caron; welcomed prayer and presence
[2021-01-28] MEDS: 0.9% Saline Lock 10 ML Syringe IV (14:13)
[2021-01-28] MEDS: Furosemide 40 MG/4 ML Vial IV ×2 (14:13→22:09)
--- NOTE | 2021-01-28 15:09 | PN.HOSP_ITS ---
Subjective Subjective Patient seen and examined. He was admitted with a complaint of shortness of breath and was found to have nonstemi. He had cardiac cath today with placement of a drug eluting stent in the proximal LAD. He was seen after cardiac cath. he had no complaints and felt well. was by his bedside. REview of systems othe rwise negative. He has remained hemodynamically stable. Objective Data Objective Data Vital Signs: Vital Signs Temp Pulse Resp BP Pulse Ox 97.7 F L 75 18 161/96 H 97 01/28/21 12:30 01/28/21 12:30 01/28/21 12:30 01/28/21 12:30 01/28/21 12:30 Oxygen Flow Rate (L/min) 2 Oxygen Delivery Method Room Air Weight: 212 lb 1.355 oz Body Mass Index (BMI) 32.2 Intake & Output: Intake and Output for Last 24 Hours 01/26/21 01/27/21 01/28/21 23:59 23:59 23:59 Intake Total 1095.83 / 1095.83 Balance 1095.83 / 1095.83 Lab / Micro Data Result Diagrams: 01/28/21 07:44 01/28/21 04:30 Labs: Laboratory Results - last 24 hr 01/28/21 01:50: WBC 9.0, RBC 5.73, Hgb 17.2 H, Hct 52.1, MCV 90.9, MCH 30.0, MCHC 33.0, RDW Std Deviation 43.6, RDW Coeff of Ranjit 13.1, Plt Count 318, MPV 8.8, Immature Gran % (Auto) 0.900, Neut % (Auto) 73.3 H, Lymph % (Auto) 13.1 L, [place] % (Auto) 8.9, Eos % (Auto) 2.8, Baso % (Auto) 1.0, Absolute Neuts (auto) 6.6, Absolute Lymphs (auto) 1.17, Nucleated RBC % 0 01/28/21 01:50: Sodium 135 L, Potassium 5.4 H, Chloride 101, Carbon Dioxide 23.0, Anion Gap 11, BUN 17, Creatinine 1.75 H, Estim Creat Clear Calc 34.20, Est GFR (MDRD) Af Amer 49 L, Est GFR (MDRD) Non-Af 40 L, BUN/Creatinine Ratio 9.7 L, Glucose 234 H, Calcium 10.2 H, Troponin I High Sens 134 H* 01/28/21 03:18: PT 13.0, INR 1.0, APTT 28.1 01/28/21 04:30: Sodium 136, Potassium 5.6 H, Chloride 104, Carbon Dioxide 24.0, Anion Gap 8, BUN 19 H, Creatinine 1.67 H, Estim Creat Clear Calc 35.84, Est GFR (MDRD) Af Amer 52 L, Est GFR (MDRD) Non-Af 43 L, BUN/Creatinine Ratio 11.4, Glucose 191 H, Calcium 9.5, Phosphorus 2.6, Magnesium 2.7 H, Total Bilirubin 0.30, AST 35, ALT 38, Alkaline Phosphatase 85, Troponin I High Sens 394 H*, Total Protein 8.0, Albumin 3.6, Globulin 4.4 H, Albumin/Globulin Ratio 0.8 L, Triglycerides 151, Cholesterol 92, LDL Cholesterol 27, VLDL Cholesterol 30, HDL Cholesterol 35 L 01/28/21 06:28: POC Glucose 149 H 01/28/21 07:44: WBC 10.3, RBC 5.45, Hgb 16.5, Hct 48.4, MCV 88.8, MCH 30.3, MCHC 34.1, RDW Std Deviation 42.0, RDW Coeff of Ranjit 13.1, Plt Count 333, MPV 8.6, Immature Gran % (Auto) 0.700, Neut % (Auto) 62.6, Lymph % (Auto) 22.1, [place] % (Auto) 11.4 H, Eos % (Auto) 2.2, Baso % (Auto) 1.0, Absolute Neuts (auto) 6.4, Absolute Lymphs (auto) 2.27, Nucleated RBC % 0 01/28/21 07:44: Troponin I High Sens 539 H* 01/28/21 07:44: Hemoglobin A1c 7.7 H 01/28/21 10:53: POC Glucose 102 Radiography Diagnostic Testing: Radiology Impression Chest X-Ray 01/28/21 01:48 IMPRESSION: Mild bibasilar infiltrates or atelectasis. ASSESSMENT: ABNORMAL report - There are abnormal findings in this report which may be related or unrelated to the reason for the exam. Electronically Signed: Compa Alexis MD at 2:37 EDT Tel , Service support , Echocardiogram 01/28/21 09:17 Interpretation Summary The study was technically difficult. Contrast injection was performed. Mild segmental systolic dysfunction (see wall motion). The estimated ejection fraction is 45 %. The left atrium is mildly enlarged. There is mild mitral annular calcification. Extension of the mitral annular calcification onto the base of the posterior mitral valve leaflet. Mild focal mitral valve calcification of the anterior leaflet. Mild (1+) mitral valve insufficiency. Trivial tricuspid valve insufficiency. Mild diffuse aortic valve thickening. Moderate focal aortic valve calcification. Trivial pulmonic valve insufficiency. Calcified aortic root. Unable to estimate RV systolic pressure/pulmonary artery pressure due to technically difficult study. No evidence for diastolic dysfunction. Ordering Physician: Jonathan Nelson Referring Physician: Kelly Vargas M.D. Performed By: Cherelle Mcclain RDCS Rhythm Strip Rate: 106 Ectopy: PAC(s) Physical Exam Const alert, oriented x3 and no apparent distress Exam Limitations: no limitations HEENT head/scalp atraumatic and moist oral mucous membranes Head and Scalp: normocephalic Eyes PERRL, EOMs intact bilaterally and conjunctivae normal Neck no lymphadenopathy Resp normal respiratory effort, no retractions, no use of accessory muscles and clear to auscultation bilaterally Cardio regular rate, regular rhythm, S1 normal heart sound, S2 normal heart sound and no murmurs GI normal to inspection, nondistended, normoactive bowel sounds, soft to palpation, non-tender and non-distended Extremity normal to inspection Peripheral Pulses: Yes pulses 2+ throughout Skin no rashes or lesions noted Neuro oriented x3, CN's II-XII intact bilaterally and moves all extremities Sensorium / Orientation: awake and alert Psych affect normal Assessment & Plan Assessment/Plan (1) NSTEMI, initial episode of care: PLAN: #Nonstemi * s/p cardiac cath * had placement of JOJO stent in the proximal LAD * on aspirin and brilinta, high intensity statin and metoprolol * cardiology on board * 2D echo; EF of 45%, with mildly enlarged left atrium, mild segmental systolic dysfunction # * #Type 2 diabetes mellitus * metformin and dapagliflozin on hold * on lantus 40 unts qhs * ISS. Accuchecks ACHS. * #Hypertension: on losartan and metoprolol. IV hydralazine prn #Skin cancer s/p resection: on left elbow. Sutures to be removed on Tuesday. #Depression and anxiety: on wellbutrin and buspar. DVT prohylaxis: SCDs Charges/Coding Visit Charges Inpatient E&M: 34014 Subs Hosp L2
[2021-01-28] MEDS: Insulin Lispro 100 UNIT/ML INSULN.PEN SC (16:23)
[2021-01-28 16:45] LABS: Bedside Glucose 199 mg/dL (70-110)
[2021-01-28] MEDS: TICAGRELOR 90 MG TABLET PO (22:03)
[2021-01-28] MEDS: Atorvastatin Calcium 80 MG Tablet PO (22:03)
[2021-01-28 22:05] LABS: Bedside Glucose 158 mg/dL (70-110)
[2021-01-29] VITALS (7 sets, daily range): BP systolic 102–116; BP diastolic 74–86; PULSE 55–88; RESP 16–18; TEMP 36.6–36.8; O2SAT 92–96
[2021-01-29 05:06] LABS: Absolute Lymphocyte Count 1.71 X10^3/uL (0.83-4.51); Absolute Neutrophil Count 7.9 X10^3/uL (2.0-7.7); Basophil# 0.08 X10^3/uL; Basophil% 0.7 % (0-1); Eosinophil# 0.27 X10^3/uL; Eosinophils% 2.4 % (0-5); Hemoglobin 16.3 g/dL (13.0-16.5); Lymphocyte # 1.71 X10^3/ul (0.83-4.51); Lymphocyte % 15.3 % (19-41); Mean Corp Hgb Conc 34.7 g/dL (32-36); Mean Corpuscular Hgb 30.4 pg (27.0-32.0); Mean Corpuscular Volume 87.5 fL (80-94); Mean Platelet Vol. 8.5 fl (6.2-12.0); Monocyte# 1.21 X10^3/uL; Monocyte% 10.8 % (0-10); NRBC Flagged by Analyzer 0 % (0-5); Neutrophil # 7.86 X10^3/uL (2.7-7.7); Neutrophil % 70.3 % (47-70); Platelet Count 341 K/mm3 (150-450); RBC Distribution Width CV 13.5 % (11.6-14.6); RBC Distribution Width SD 43.2 fl (35.1-43.9); Red Blood Count 5.37 M/mm3 (4.6-6.2); White Blood Count 11.2 K/mm3 (4.4-11.0)
[2021-01-29 05:35] LABS: ALB/GLOB Ratio 0.7 RATIO (0.9-2.4); AST(SGOT) 43 U/L (15-37); Alanine Aminotransfer ALT/SGPT 39 U/L (16-61); Albumin, Serum 3.4 g/dL (3.2-5.0); Alkaline Phosphatase 80 U/L (45-117); Anion Gap 9 (5-15); BUN 22 mg/dL (7-18); BUN/Creat Ratio 14.8 RATIO (10-20); Calcium,Total 9.2 mg/dL (8.5-10.1); Chloride 101 mmol/L (98-107); Creatinine, Serum 1.49 mg/dL (0.70-1.30); EST Glomerular Filtration Rate 49 mL/min (>60); Est Glom Filt Rate - Afr Amer 59 mL/min (>60); Estimated Creatinine Clearance 40.17 ml/min; Globulin 4.6 g/dL (2.2-4.2); Glucose 171 mg/dL (74-106); Potassium 4.4 mmol/L (3.5-5.1); Sodium Level 135 mmol/L (136-145)
[2021-01-29] MEDS: Pregabalin 50 MG Capsule 100 MG PO ×2 (05:42→14:21)
[2021-01-29] MEDS: busPIRone 15 MG TABLET PO ×2 (05:43→14:22)
[2021-01-29] MEDS: Insulin Lispro 100 UNIT/ML INSULN.PEN SC (06:52)
[2021-01-29] MEDS: 0.9% Normal Saline 1,000 ML 15 ML IV (07:37)
[2021-01-29] MEDS: Aspirin 81 MG TAB.CHEW PO (07:38)
[2021-01-29] MEDS: Primidone 50 MG Tablet 100 MG PO ×2 (07:38→11:01)
[2021-01-29 07:40] LABS: Bedside Glucose 160 mg/dL (70-110)
--- NOTE | 2021-01-29 08:37 | PN.CARD_ITS ---
Subjective Subjective The patient's she felt short of breath yesterday afternoon/early evening. After receiving IV furosemide he states his breathing is markedly improved. He has no ongoing chest discomfort at this time. Objective Data Vital Signs: Vital Signs Temp Pulse Resp BP Pulse Ox 97.9 F 88 18 102/74 96 01/29/21 07:33 01/29/21 07:33 01/29/21 07:33 01/29/21 07:33 01/29/21 07:33 Oxygen Flow Rate (L/min) 2 Oxygen Delivery Method Nasal Cannula Weight: 212 lb 1.355 oz Body Mass Index (BMI) 32.2 Intake & Output: Intake and Output for Last 24 Hours 01/27/21 01/28/21 01/29/21 23:59 23:59 23:59 Intake Total 1495.83 / 1495.83 262.5 / 262.5 Output Total 400 / 400 Balance 1495.83 / 1095.83 -137.5 / -137.5 Lab / Micro Data Result Diagrams: 01/29/21 04:42 01/29/21 04:42 Labs: Laboratory Results - last 24 hr 01/28/21 07:44: Troponin I High Sens 539 H* 01/28/21 10:53: POC Glucose 102 01/28/21 16:20: POC Glucose 199 H 01/28/21 21:59: POC Glucose 158 H 01/29/21 04:42: WBC 11.2 H, RBC 5.37, Hgb 16.3, Hct 47.0, MCV 87.5, MCH 30.4, MCHC 34.7, RDW Std Deviation 43.2, RDW Coeff of Ranjit 13.5, Plt Count 341, MPV 8.5, Immature Gran % (Auto) 0.500, Neut % (Auto) 70.3 H, Lymph % (Auto) 15.3 L, [place] % (Auto) 10.8 H, Eos % (Auto) 2.4, Baso % (Auto) 0.7, Absolute Neuts (auto) 7.9 H, Absolute Lymphs (auto) 1.71, Nucleated RBC % 0 01/29/21 04:42: Sodium 135 L, Potassium 4.4, Chloride 101, Carbon Dioxide 25.0, Anion Gap 9, BUN 22 H, Creatinine 1.49 H, Estim Creat Clear Calc 40.17, Est GFR (MDRD) Af Amer 59 L, Est GFR (MDRD) Non-Af 49 L, BUN/Creatinine Ratio 14.8, Glucose 171 H, Calcium 9.2, Total Bilirubin 0.40, AST 43 H, ALT 39, Alkaline Phosphatase 80, Total Protein 8.0, Albumin 3.4, Globulin 4.6 H, Albumin/Globulin Ratio 0.7 L 01/29/21 06:50: POC Glucose 160 H Rhythm Strip Rate: 106 Ectopy: PAC(s) Cardiology Labs/Tests 01/29/21 04:42: WBC 11.2 H, RBC 5.37, Hgb 16.3, Hct 47.0, MCV 87.5, MCH 30.4, MCHC 34.7, Plt Count 341, MPV 8.5, Immature Gran % (Auto) 0.500, Neut % (Auto) 70.3 H, Lymph % (Auto) 15.3 L, [place] % (Auto) 10.8 H, Eos % (Auto) 2.4, Baso % (Auto) 0.7, Absolute Neuts (auto) 7.9 H, Nucleated RBC % 0 01/29/21 04:42: Sodium 135 L, Potassium 4.4, Chloride 101, Carbon Dioxide 25.0, Anion Gap 9, BUN 22 H, Creatinine 1.49 H, Est GFR (MDRD) Af Amer 59 L, Est GFR (MDRD) Non-Af 49 L, BUN/Creatinine Ratio 14.8, Glucose 171 H, Calcium 9.2, Total Bilirubin 0.40 Rhythm: Sinus rhythm EKG: Sinus rhythm; T wave abnormality: Consider myocardial ischemia: Anterior lateral ECHO: As noted below Radiography Diagnostic Testing: Radiology Impression Echocardiogram 01/28/21 09:17 Interpretation Summary The study was technically difficult. Contrast injection was performed. Mild segmental systolic dysfunction (see wall motion). The estimated ejection fraction is 45 %. The left atrium is mildly enlarged. There is mild mitral annular calcification. Extension of the mitral annular calcification onto the base of the posterior mitral valve leaflet. Mild focal mitral valve calcification of the anterior leaflet. Mild (1+) mitral valve insufficiency. Trivial tricuspid valve insufficiency. Mild diffuse aortic valve thickening. Moderate focal aortic valve calcification. Trivial pulmonic valve insufficiency. Calcified aortic root. Unable to estimate RV systolic pressure/pulmonary artery pressure due to technically difficult study. No evidence for diastolic dysfunction. Ordering Physician: Jonathan Nelson Referring Physician: Kelly Vargas M.D. Performed By: Cherelle Mcclain RDCS Physical Exam Const alert and oriented x3 Orientation / Consciousness: awake HEENT normocephalic, head/scalp atraumatic and hearing grossly normal bilaterally Eyes PERRL and EOMs intact bilaterally Neck full ROM, supple and no JVD Resp normal respiratory effort and clear to auscultation bilaterally Cardio regular rate, regular rhythm, S1 normal heart sound and S2 normal heart sound Heart Sounds: gallop S4 gallop, abnormal sounds and other GI normal to inspection, nondistended, normoactive bowel sounds Extremity no pedal edema Peripheral Pulses: Yes radial pulses present right (No bruits: No hematoma) 2+ Skin Skin Narrative: Right elbow: Surgical dressing in place Psych mental status grossly normal Assessment & Plan Assessment/Plan (1) NSTEMI, initial episode of care: PLAN: The patient has undergone further evaluation both noninvasively and invasively. His echocardiogram is as noted. His cardiac catheterization demonstrated angiographically significant appearing CAD of the proximal LAD distribution for which she underwent subsequent PCI. He will need continued medical management, outpatient cardiac rehabilitation th [facility], and outpatient cardiovascular follow-up. (2) Cardiomyopathy, ischemic: PLAN: The patient does have diminished LV systolic function based upon his echocardiographic findings. At the present time he will continue medical therapy. This will include agents such as beta-blockers. Over time, depending upon the patient's hemodynamics, his renal function, his potassium levels, etc. consideration can be given to the addition of afterload reducing agents such as FRANTZ inhibitor's or ARB use. (3) Hyperlipemia: PLAN: The patient has a history of hyperlipidemia. He has been on lipid-lowering therapy with an HMG Co.A reductase inhibitor/statin. (4) Hypertension: QUALIFIERS: Hypertension type: essential hypertension Qualified Code(s): I10 - Essential (primary) hypertension PLAN: The patient has a history of hypertension. He has been on medical management. (5) Type II diabetes mellitus: PLAN: The patient will continue evaluation care per internal medicine. (6) TRUDY (acute kidney injury): PLAN: The patient's renal function appears to be improving with adjustment of medications and adjustment of his volume status. (7) Hyperkalemia: PLAN: The patient is potassium level appears to have improved. Addt'l Comments Overall, the patient does appear to be symptomatically improved. He will continue medication adjustment. Depending upon his clinical status consideration will be given as to when the patient can be released home (the patient states that he is hopeful to be released home so that he can keep an outpatient dermatology appointment tomorrow afternoon to have previous dermatologic surgery sutures removed) for continued outpatient cardiovascular rehabilitation therapy and follow-up. The aforementioned information was conveyed to the [facility] staff. This note was generated using a voice recognition system and there may be incorrect words, spelling or punctuation that were not noted when reviewing the office note prior to saving.
[2021-01-29] MEDS: DULoxetine Hcl 60 MG Capsule PO (09:43)
[2021-01-29] MEDS: TICAGRELOR 90 MG TABLET PO (09:43)
[2021-01-29] MEDS: buPROPion (XL) 150 MG TABLET.XL PO (09:43)
[2021-01-29] MEDS: Metoprolol Tartrate 25 MG Tablet PO (09:43)
[2021-01-29] MEDS: amLODIPine 5 MG Tablet PO (09:43)
[2021-01-29] MEDS: BACITRACIN 15 GM Tube 1 APPLIC TOPICAL (09:46)
[2021-01-29] MEDS: Furosemide 40 MG Tablet PO (09:46)
--- NOTE | 2021-01-29 10:00 | EKG12_ITS ---
Test Reason : POST PCI Blood Pressure : / mmHG Vent. Rate : 079 BPM Atrial Rate : 079 BPM P-R Int : 224 ms QRS Dur : 088 ms QT Int : 354 ms P-R-T Axes : -20 -23 096 degrees QTc Int : 405 ms Sinus rhythm with 1st degree A-V block Otherwise normal ECG When compared with ECG of 28-JAN-2021 05:33, MANUAL COMPARISON REQUIRED, DATA IS UNCONFIRMED Confirmed by ENDER CAMP, GARRICK ([id number]), online editor ANURAG CORBIN ([id number]) on 02/03/2021 10:01:54 AM Referred By: Confirmed By:GARRICK HANDLEY MD
[2021-01-29 11:05] LABS: Bedside Glucose 143 mg/dL (70-110)
--- NOTE | 2021-01-29 11:46 | DS.PCM_ITS ---
Providers Date of Admission: 01/28/21 Primary Care Physician: Dr. 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 Comment: Reason for Consult:: top of head cancer removal Reason For Visit: NSTEMI Diagnosis Discharge Diagnosis (1) NSTEMI, initial episode of care: Status: Acute Code(s): I21.4 - Non-ST elevation (NSTEMI) myocardial infarction (2) Cardiomyopathy, ischemic: Status: Acute Code(s): I25.5 - Ischemic cardiomyopathy (3) Hyperlipemia: Status: Chronic Code(s): E78.5 - Hyperlipidemia, unspecified (4) Hypertension: Status: Chronic Code(s): I10 - Essential (primary) hypertension Qualifiers: Hypertension type: essential hypertension Qualified Code(s): I10 - Essential (primary) hypertension (5) Type II diabetes mellitus: Status: Chronic Code(s): E11.9 - Type 2 diabetes mellitus without complications (6) TRUDY (acute kidney injury): Status: Acute Code(s): N17.9 - Acute kidney failure, unspecified (7) Hyperkalemia: Status: Acute Code(s): E87.5 - Hyperkalemia Medications at Discharge Home Medications amlodipine 5 mg PO DAILY 11/10/13 metformin 500 mg PO BID 11/10/13 Ibuprofen [Motrin] 800 mg PO Q6H PRN 11/11/13 duloxetine 60 mg PO DAILY 02/03/15 primidone 100 mg PO TID 02/03/15 cholecalciferol (vitamin D3) [Vitamin D3] 5,000 unit PO DAILY 10/12/16 pregabalin [Lyrica] 100 mg PO TID 10/12/16 aspirin 81 mg PO DAILY@0800 10/04/19 bupropion HCl 150 mg PO DAILY 10/04/19 buspirone 15 mg PO TID 10/04/19 insulin degludec-liraglutide 40 unit SQ QHS 10/04/19 rosuvastatin 40 mg tablet 40 mg PO DAILY tab 10/28/20 Farxiga 10 mg PO DAILY 01/28/21 losartan 50 mg PO DAILY 01/28/21 metformin 500 mg PO LUNCH 01/28/21 furosemide 40 mg PO DAILY #30 tab 01/29/21 metoprolol tartrate 25 mg PO BID #60 tab 01/29/21 ticagrelor [Brilinta] 90 mg PO BID #60 tab 01/29/21 Hospital Course Operations None Procedures 2-D Echocardiogram and Cardiac catheterization Summary of Care Provided Minutes Spent on Discharge: 45 Hospital Course: Patient is a 75 y.o male with a PMH as outlined who was admitted via the ED on 01/28/2021 with a complaint of chest pain which was retrosternal in nature. Initial high sensitivity troponin was negative. EKG showed no acute ST changes. Was admitted and managed for non-STEMI. Cardiology was consulted. Was started on heparin drip. He had cardiac cath with placement of drug-eluting stent in the proximal LAD. Patient was continued on his aspirin and Brilinta as well as high intensity statin and metoprolol. He was also discharged on PO lasix 40mg daily. Due to concerns about hyperkalemia, he wasnt given potassium supplement. 2D echo done showed EF of 45% with mildly enlarged left atrium and mild segmental systolic dysfunction. Patient remained stable and was discharged home on 01/29/2021. He is follow-up with his primary care doctor and is also to follow-up with cardiology. Patient seen and examined prior to discharge. He had no complaints and felt wel l. Review of symptoms otherwise negative. Labs and vitals reviewed. Home medication reviewed and reconciled. Physical Exam Const alert, oriented x3 and no apparent distress General Appearance: cooperative and comfortable Orientation / Consciousness: awake Exam Limitations: no limitations HEENT normocephalic, head/scalp atraumatic, hearing grossly normal bilaterally, moist oral mucous membranes and oropharynx normal Eyes PERRL, EOMs intact bilaterally and conjunctivae normal Neck no lymphadenopathy, supple, no JVD and no carotid bruits Resp normal respiratory effort, no retractions, no use of accessory muscles and clear to auscultation bilaterally Auscultation: Negative for crackles, rales, rhonchi or wheezes Cardio regular rate, regular rhythm, S1 normal heart sound, S2 normal heart sound, no murmurs, no rub, no gallops, no clicks and no JVD GI normal to inspection, nondistended, normoactive bowel sounds, soft to palpation, non-tender and non-distended Extremity normal to inspection and no clubbing, cyanosis or edema Skin no rashes or lesions noted, skin turgor normal, no jaundice, no petechiae and no mottling Neuro oriented x3, CN's II-XII intact bilaterally, moves all extremities and no focal motor deficits Sensorium / Orientation: awake, alert, oriented to person, oriented to place and oriented to time Speech: speech normal Motor Exam: strength 5/5 throughout Psych affect normal Weight / BMI Weight Weight: 212 lb 1.355 oz Body Mass Index (BMI) 32.2 ABG / Lab / Microbiology Data Result Diagrams: 01/29/21 04:42 01/29/21 04:42 Laboratory: Laboratory Results - last 24 hr 01/28/21 10:53: POC Glucose 102 01/28/21 16:20: POC Glucose 199 H 01/28/21 21:59: POC Glucose 158 H 01/29/21 04:42: WBC 11.2 H, RBC 5.37, Hgb 16.3, Hct 47.0, MCV 87.5, MCH 30.4, MCHC 34.7, RDW Std Deviation 43.2, RDW Coeff of Ranjit 13.5, Plt Count 341, MPV 8.5, Immature Gran % (Auto) 0.500, Neut % (Auto) 70.3 H, Lymph % (Auto) 15.3 L, Benzie % (Auto) 10.8 H, Eos % (Auto) 2.4, Baso % (Auto) 0.7, Absolute Neuts (auto) 7.9 H, Absolute Lymphs (auto) 1.71, Nucleated RBC % 0 01/29/21 04:42: Sodium 135 L, Potassium 4.4, Chloride 101, Carbon Dioxide 25.0, Anion Gap 9, BUN 22 H, Creatinine 1.49 H, Estim Creat Clear Calc 40.17, Est GFR (MDRD) Af Amer 59 L, Est GFR (MDRD) Non-Af 49 L, BUN/Creatinine Ratio 14.8, Glucose 171 H, Calcium 9.2, Total Bilirubin 0.40, AST 43 H, ALT 39, Alkaline Phosphatase 80, Total Protein 8.0, Albumin 3.4, Globulin 4.6 H, Albumin/Globulin Ratio 0.7 L 01/29/21 06:50: POC Glucose 160 H 01/29/21 10:59: POC Glucose 143 H Radiography Diagnostic Testing: Radiology Impression Echocardiogram 01/28/21 09:17 Interpretation Summary The study was technically difficult. Contrast injection was performed. Mild segmental systolic dysfunction (see wall motion). The estimated ejection fraction is 45 %. The left atrium is mildly enlarged. There is mild mitral annular calcification. Extension of the mitral annular calcification onto the base of the posterior mitral valve leaflet. Mild focal mitral valve calcification of the anterior leaflet. Mild (1+) mitral valve insufficiency. Trivial tricuspid valve insufficiency. Mild diffuse aortic valve thickening. Moderate focal aortic valve calcification. Trivial pulmonic valve insufficiency. Calcified aortic root. Unable to estimate RV systolic pressure/pulmonary artery pressure due to technically difficult study. No evidence for diastolic dysfunction. Ordering Physician: Jonathan Nelson Referring Physician: Kelly Vargas M.D. Performed By: Cherelle Mcclain NIKKI D/C Instructions Discharge Diet: Low fat / Low cholesterol and 1800 Calorie Control Diet Discharge Activity: Return to Normal Activity Weight Bearing Status: Weight bearing as tolerated Call your doctor if you observe: Fever of 101 or Higher, Shortness of breath, Dizziness, Swelling in the ankles, Chest pain and Increased palpitations (irregular heartbeat) Meaningful Use Info Meaningful Use Diagnoses (Choose all that apply): AMI AMI/Post PCI/Angioplasty Aspirin given w/in 24hrs of arrival?: Yes ASA at discharge?: Yes Antiplatelet Therapy at Discharge:: Yes Statins at discharge?: Yes Shadi/ARB at discharge?: Yes Beta Gali at discharge?: Yes Done w/ Acute IN measure.: Yes Documented LVEF (%): 45 Discharge Plan Admission Admit Date/Time: 01/28/21 02:59 Primary Reason for Your Visit: nonstemi Attending Provider: Analisa Ricks Primary Care Provider: Kelly Vargas Consulting Providers: Jonathan Nelson Discharge Orders/Prescriptions Prescriptions: New metoprolol tartrate 25 mg tablet 25 mg PO BID Qty: 60 RF: 1 Brilinta 90 mg tablet 90 mg PO BID Qty: 60 RF: 1 furosemide 40 mg tablet 40 mg PO DAILY Qty: 30 RF: 1 Continued rosuvastatin 40 mg tablet 40 mg PO DAILY RF: 0 amlodipine 5 MG tablet 5 mg PO DAILY RF: 0 metformin 750 MG tablet extended release 24 hr 500 mg PO BID RF: 0 Ibuprofen [Motrin] 800 MG tablet 800 mg PO Q6H PRN (Reason: Pain Or Fever) RF: 0 primidone 50 MG tablet 100 mg PO TID RF: 0 duloxetine 60 MG capsule 60 mg PO DAILY RF: 0 cholecalciferol (vitamin D3) [Vitamin D3] 1,000 UNIT capsule 5,000 unit PO DAILY RF: 0 pregabalin [Lyrica] 100 MG capsule 100 mg PO TID RF: 0 aspirin 81 MG tablet,chewable 81 mg PO DAILY@0800 RF: 0 insulin degludec-liraglutide 3 ML insulin pen 40 unit SQ QHS RF: 0 buspirone 15 MG tablet 15 mg PO TID RF: 0 bupropion HCl 150 MG tablet extended release 24 hr 150 mg PO DAILY RF: 0 metformin 500 mg Tablet Extended Release 24 Hr 500 mg PO LUNCH RF: 0 losartan 50 mg Tablet 50 mg PO DAILY RF: 0 Farxiga 10 mg Tablet 10 mg PO DAILY RF: 0 Referrals / Follow Up: Kelly Vargas DO [Primary Care Provider] - Disposition Discharge Orders: Discharge Patient (Routine); Ordered 01/29/21 Ordered By: Dr. Analisa Ricks Charges/Coding Visit Charges Inpatient E&M: 31160 Disch Hosp
--- NOTE | 2021-01-29 15:01 | CASEMGMT ---
Pt to be sent home on Brilinta at discharge and med e-scribed to [facility] previously. Per [facility], pt's co-pay is $109.07. Pt/ updated and provided a Brilinta one month free card at this time, voice understanding. Pt/ voice no further questions/concerns/needs. Jennifer CALDERA CM
== END 2021-01-29 15:33 | disposition home or self-care (01) | DRG 247 ==
LOC: ED 02:57 → PCU 03:11
PROVIDERS: Internal Medicine Cardiovascular Disease; Admitting Provider Internal Medicine; Emergency Provider Emergency Medicine; PCP Internal Medicine; Visit Provider Student in an Organized Health Care Education/Training Program
DX: I21.4 Non-ST elevation (NSTEMI) myocardial infarction (principal); E87.1 Hypo-osmolality and hyponatremia; N17.9 Acute kidney failure, unspecified; I25.5 Ischemic cardiomyopathy; I25.10 Atherosclerotic heart disease of native coronary artery without angina pectoris; E87.5 Hyperkalemia; Z23 Encounter for immunization; E11.9 Type 2 diabetes mellitus without complications; I10 Essential (primary) hypertension; E78.5 Hyperlipidemia, unspecified; N40.0 Benign prostatic hyperplasia without lower urinary tract symptoms; F32.A Depression, unspecified; F41.9 Anxiety disorder, unspecified; E66.9 Obesity, unspecified; Z68.32 Body mass index [BMI] 32.0-32.9, adult; Z79.82 Long term (current) use of aspirin; Z79.4 Long term (current) use of insulin; Z79.02 Long term (current) use of antithrombotics/antiplatelets; Z85.51 Personal history of malignant neoplasm of bladder; Z85.038 Personal history of other malignant neoplasm of large intestine; Z85.828 Personal history of other malignant neoplasm of skin; Z87.891 Personal history of nicotine dependence; Z90.49 Acquired absence of other specified parts of digestive tract
CPT/HCPCS: 36415; 71045; 80048; 80053; 80061; 82962; 83036; 83735; 84100; 84484; 85025; 85610; 85730; 92928; 93005; 93306; 93458; 97802; 99152; 99153; 99251; 99285; 99406; C1874; G0008; J7030; Q9957; Q9967; 90686; A4216; C1725; C1769; C1887; C1894; C8929; C9600; G0463; J1940

== ENCOUNTER → 2021-02-26 20:00 | Outpatient (CLI) | payer MEDICARE, SELFPAY | PROVIDERS: PCP Internal Medicine; Visit Provider Nurse Practitioner Gerontology | DX: G47.10 Hypersomnia, unspecified (principal) | CPT/HCPCS: 95810 ==

== ENCOUNTER → 2021-03-05 08:50 | Outpatient (CLI) | payer MEDICARE, SELFPAY ==
--- NOTE | 2021-03-05 09:07 | PCM.CR.ITP ---
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 Barriers to Learning: Decreased Motivation, Emotional/Anxiety - depression, Hearing Impairment, Vision Impairment Stage of change r/t lifestyle modifications:: Contemplation Gave educational material for:: Treating Heart Disease, Emotions & Heart Disease, Stress Management & Relaxation, Sleep Disorders & Heart Disease, How The Heart Works, What it means to have Heart Disease, How Coronary Artery Disease is Diagnosed, Heart Procedures, What Heart Medications Do, Risk Factors & Modifications, Living an Active Life, Nutrition - Education/Goals Individual Counseling: Initial Assessment: Nicotine/Smoking, Abnormal Cholesterol Levels, High Blood Pressure Cardiac Rehabilitation Goals: 1. Maintain the individual as the primary focus of care. 2. To improve the patient's quality of life. 3. Identification of cardiac risk factors and provide cardiac risk factor management. 4. Enhance the psychosocial status of the patient. 5. Reconditioning enough to allow the patient to resume customary activities. 6. Control symptoms of cardiac disease Personal Goals: Initial Assessment: Improve management of stress and emotions, Improve energy level, Improve knowledge of cardiac disease, Improve muscle strength and endurance, Improve diet and eating habits (eat healthier), Control risk factors (learn risk factor modification) Scale for measuring improvement of personal goals: Enter appropriate number in Comments. 2 = Unchanged. 3 = Slightly Better. 4 = Moderate Improvement. 5 = Met my Goal - Diagnosis & Disease Process Outcomes/Goals: Pt IDs own risk factors & lifestyle modifications by Session 10, Verbalizes symptoms of angina & response by session 3., Pt independently manages Plan/Interventions: Assist Pt to ID & engage in lifestyle modification to reduce CVD risk, Instruct on individual risk factors, Review symptoms of angina & emergency actions, Review secondary diagnosis & identify educational needs. - Safety Referral to Physical Therapy: No Referral to [facility] Case Management: No Fall Risk Assessed:: Yes Assistive Devices:: Cane Exercise - Initial Assessment - Visit Date of Eval: 03/05/21 Session #:: 0 - pre-cardiac rehab evaluation Mets: Pre-: >5 METS for 30 minutes by discharge - Physician Prescribed Exercise Modalities: Biodyne - SciFit Lateral Warm [place], NuStep, SciFit Frequency: 3x/week for 12 weeks [36 sessions] Intensity: 60-80% of age predicted maximum heart rate reserve Current METSs:: 2.0 Target Heart Rate:: 86-106 Resting Blood Pressure: 100/64 Current Physical Activity or Exercising minutes: Sinus rhythm with 1st degree AV block - Outcomes & Goals Goals:: Verbalizes understanding of THR, RPE & goal METS by session 6, Documents in home exercise log/reports 30 min aerobic 5 day/wk by DC, Demonstrates accurate pulse taking by DC - Intervention & Plan Exercise Program Goals: Instruct on personal THR & RPE, Instruct on MET level & personal MET goal, Show patient to take own pulse /validate performance until accurate, Instruct on home exercise - Physical Activity Home Exercise Physical Activity - Home Exercise: Safe Exercise, Warm-up, Self-monitoring, Cool-Down, Home Exercise > 30 min Daily, Sitting Time <3 hours/daily - Outcomes & Goals Outcomes/Goals: Demonstrates correct Warm-up/exercise Cool-Down (S3) if = 2.5 METs, Verbalizes symptoms of exercise intolerance by Session 3 (S3), Demonstrate safe equipment use (S3) & follows exercise prescrition (6) - Intervention & Plan Plan/Intervention: Instruct warm-up & cool-down if exercising at > 2 METs, Instruct on symptoms of exercise intolerance & actions to take, Instruct & monitor on saf, Assess intial functional capacity & safety risk Nutrition - Initial Assessment - Program Goals Nutrition Program Goals: LDL <100 optimal. 100 - 129 Near optimal. 130 - 159 Borderline High. 160 - 189 High. Total Cholesterol <200 desirable. 200 - 239 Borderline High. >/= 240 High. HDL < 40 Low >/=60 High. Triglycerides <150 desirable. <199 optimal. VlDL 5 - 40. HgbA1C <7%. BMI <25 Patient has diagnosis of Hyperlipidemia (ICD E78)?: Yes - Visit Date of Assessment:: 03/05/21 Session #:: 0 - pre-cardiac rehab evaluation - Cholesterol/Lipids Triglycerides (mg/dL): 151 - 01/28/2021 Total Cholesterol (mg/dL): 92 LDL Cholesterol (mg/dL): 27 HDL Cholesterol (mg/dL): 35 Determine presence & major risk factors that modify LDL goal: Cigarette smoking - Pipe daily no intention of quitting, Hypertension or hypertensive medication, Low HDL cholesterol <40 mg/dL*, Age men > 45 years; women >/= 55 years Outcomes/Goals: Pt IDs own risk factors & lifestyle modifications by Session 10, Verbalizes symptoms of angina & response by session 3., Pt independently manages Intervention/Plan: Instruct on personal lipid levels & lipid goals/NCEP guidelines, Instruct on cholesterol Referral to dietitian:: Yes - Medical Nutrition Therapy - Diabetes (Other Core Measures) Diabetes Type: Diagnosis Type II ICD-10 E11 Fasting blood glucose:: 171 Hgb A1C (4.2 - 6.3): 7.7 Insulin dependent injection/pump?: Yes Non-Insulin Dependent?: Yes Do you monitor your blood sugar at home?: Yes Referral to Diabetic Clinic:: Yes Outcomes/Goals:: Able to state symptoms of, Able to state, Able to state Intervention/Plan:: Instruct on, Refer to, Instruct on - Weight Mgt (Other Care) Not Applicable: Yes Height: 5 ft 8 in Weight:: 192 lb BMI: 29.2 Diagnosis Overweight/Obesity BMI> 30% ICD-10 E66: No Diagnosis High BMI/Morbid Obesity BMI> 35% ICD-10 Z68: No Intervention/Plan: Instruct on ideal BMI & set weight loss goal w/patient, Assist pt to ID & incorporate diet changes for weight loss by S9, Encourage goal of using 250-300dcal per session for weight loss - Healthy Eating Habits Will attend diet classes:: Yes Outcomes/Goals:: Consume diet rich in vegs,fruits,whole grain/high fiber,fish,lean meat, Limit sat/trans fats,cholesterol & added salts & sugars Intervention/Plan:: Assess current eating habits - Education Gave educational materials for:: Signs & symptoms of hypoglycemia, Signs & symptoms of hyperglycemia, Relate diabetes to coronary artery disease, Healthy eating Nutrition - 30-Day Assessment Nutrition - 60-Day Assessment Nutrition - 90-Day Assessment Nutrition - Final Assessment Medical - Initial Assessment - Visit Date of Eval: 03/05/21 Session #:: 0 - pre-cardiac rehab - Medication Compliance Preventative Medication(s):: Aspirin, Ticagrelor/P2Y12 inhibitor, Statin/lipid, Beta erma H/O mental health issues: depression, anxiety, or addiction?: Yes Doesn?t believe in the benefits of treatment?: Yes - doesn't believe particpating in CR will do anything for him, comtemplative Believes medications are unnecessary or harmful?: No Has a concern about medication side effects?: No Expresses concern over the cost of medications?: No Outcomes/Goals: Verbalizes medications,desired effect & common side effects @ DC, Pt self-reports following medication regimen, Keeps card in wallet w/medications listed by DC Interventions/plans: Instruct on medication effects & side effects, Review medication list w/patient every two weeks, Instruct importance of taking meds as ordered & assist problem solving - Tobacco Use Tobacco Use: Pipe - Absolutely no intention sof quitting smocking his pipe. Do you use smokeless tobacco?: No Outcomes/Goals: Smoking cessation achieved or maintained by discharge, Identify aids/strategies for achieving smoking cessation by session 6 Interventions/plan: Instruct on effects of smoking & provide smoking cessation resource, Assist pt to set quit date & provide encouragement, Assist pt to develop strategies to achieve/maintain quit date, Assist pt w/nicotine replacement & medication for cessation success - Hypertension Hypertension Diagnosis:: Hypertension ICD-10 I10 Resting Blood Pressure:: 100/64 [place] [employer] Hypertension Guidelines: [place] [employer] Hypertension Guidelines. Normal BP Less than 120/80. Elevated BP 120/80. Hypertension Stage 1: BP 130-139/80-89. Hypertesnion Stage 2: BP 140 or higher/90 or higher. Hypertension Crisis: BP higher than 180/120 Outcomes/Goals: Able to verbalize/achieve optimal blood pressure <130/80, Other additional outcomes/goals Interventions/plan: Instruct on optimal blood pressure, hypertension & medications, Instruct on effects of sodium, alcohol, stress, exercise &hypertension - Tobacco Cessation Referral Smoking Cessation Referral:: No Individual Education/Counseling:: No Education Schedule Given:: Yes Medical- 30-Day Assessment Medical- 60-Day Assessment Medical- 90-Day Assessment Medical - Final Assessment Psychosocial - Initial Assess - VIsit Date of Eval: 03/05/21 Session #:: 0 - pre-cardiac rehab evaluation Not Applicable: No History of previous Mental disease:: Yes History of Emotional Disorders: Depression - Psychosocial Test Tool Used:: Maryann Corey QOL Cardiac, PHQ-9 Questionnaire phq-9 Severity: Severity. 1-4 Minimal Depression. 5-9 Mild Depression. 10-14 Moderate Depression. 15-19 Moderately Sever Depression. 20-27 Severe Depression. Rule: - Referral to Behavioral Health PS - Interventions: Yes Attend Stress Management Classes, No Referral to Behavioral Health if PHQ-9 score >9: - already seeing a counselor/psychologist, No Referral to [facility], No Referral to Physician if PHQ-9 if score is 5-9: - Outcomes/Goals: See list Psychosocial Outcomes/Goals:: ID's personal stressors & 2 strategies to manage stress by discharge - Intervention/Plan: See List Interventions/Plan:: Assess stressors,coping strategies & signs of derpression on admission, Instruct/assist pt to develop coping & personal stress Mgt strategies, Instruct patient to recognize signs & symptoms of depression, Instruct patient to recog Psychosocial - 30-Day Assess Psychosocial - 60-Day Assess Psychosocial - 90-Day Assess Psychosocial - Final Assessmen Patient Health Questionnaire Initial Assessment 1. Little interest or pleasure in doing things: More than half the days 2. Feeling down, depressed, or hopeless: Several days 3. Trouble falling or staying asleep, or sleeping too much: Nearly every day 4. Feeling tired or having little energy: More than half the days 5. Poor appetite or overeating: Not at all 6. Feeling bad about yourself -- or that you are a failure or have let yourself or your family down: Not at all 7. Trouble concentrating on things, such as reading the newspaper or watching television: Not at all 8. Moving or speaking so slowly that other people could have noticed. Or the opposite - being so fidgety or restless that you have been moving around a lot more than usual: Not at all 9. Thoughts that you would be better off , or of hurting yourself in some way: Not at all How difficult have these problems made it for you to do your work, take care of things at home, or get along with other people?: Somewhat difficult Total Score: 8 GEMINI-Q SV Test - Statements CAD is a disease of the arteries in the heart: True Examples of risk factors for heart disease: True Angina is chest pain or discomfort: I Don't Know The benefits of resistance training include: True Eating more meat and dairy products: False Anti-platelet medications such as aspirin are important: True The only effective way to manage stress: False An exercise warm-up slowly increases heart rate: True Prepared, processed foods usually have high sodium: True Depression is common after a heart attack: True The statin medications lower cholesterol: I Don't Know To control blood pressure, lower the amount of sodium: True If someone gets chest discomfort during walking: False Transfats are partially hydrogenated vegetable oils: True Sleep apnea that is not treated increases the risk: False To control cholesterol, one should become a vegetarian: False Someone knows if he/she is exercising at the right level: False Diabetes cannot be prevented with exercise & health eating: False Stress is a large risk for heart attack: True A diet that can help lower blood pressure is rich in: True - Total Score Total Correct Responses: 16 Self-Efficacy Initial Assessment We would like to know how confident you are in doing certain activities. Please select your confidence level for:: Select your confidence level for the following using the scale 1-10 where 1 is not at all confident and 10 is totally confident. Your score is the average of all 6 responses. Fatigue: How confident are you that you can keep the fatigue caused by your disease from interfering with the things you want to do? Select Number: 6 Physical Discomfort or Pain: How confident are you that you can keep the physical discomfort or pain of your disease from interfering with the things you want to do? Select Number: 3 Emotional Distress: How confident are you that you can keep the emotional distress caused by your disease from interfering with the things you want to do? Select Number: 4 Other Symptoms or Health Problems: How confident are you that you can keep other symptoms or health problems from interfering with the things you want to do? Select Number: 3 Different Tasks and Activities: How confident are you that you can do the different tasks and activities needed to manage your health condition so as to reduce your need to see a doctor? Select Number: 4 Medication: How confident are you that you can do things other than just taking medication to reduce how much your illness affects your everyday life? Select Number: 4 Total Score:: 4 Nutrition Survey - Nutrition Survey Initial Have you lost >10 lbs over the past 2 months without trying?: No Are you following a special diet at home for diabetes, low fat, or low salt?: No Are you interested in meeting with a dietitian for help understanding your diet?: No Do you eat less than 3 meals a day?: No Do you eat fatty meats (gonzalez, sausage, ribs, etc), fried foods, desserts, large amounts of salad dressings, margarine, butter, or cheese most days?: Yes Do you have food allergies? 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 Do you eat in restaurants more than 3 times a week?: No Do you season food with salt, seasoning salt, or garlic salt?: No Do you used canned, boxed, frozen meals, or soups, seasoning packets?: No Total Score:: 1
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
[2021-03-05 09:51] VITALS: BP 100/64; BMI 29.2
[2021-03-05 10:09] VITALS: BP 100/64; PULSE 64; RESP 18; TEMP 36.4; O2SAT 96; BMI 29.2
== END ==
PROVIDERS: PCP Internal Medicine; Referring Provider Internal Medicine Cardiovascular Disease; Visit Provider Internal Medicine Cardiovascular Disease
DX: I25.10 Atherosclerotic heart disease of native coronary artery without angina pectoris (principal); Z95.5 Presence of coronary angioplasty implant and graft

== ENCOUNTER 2021-03-18 10:30 | Outpatient (RCR) | payer MEDICARE, SELFPAY ==
[2021-03-05 09:51] VITALS: BMI 29.2
== END 2021-03-24 23:59 ==
LOC: CR 10:30
PROVIDERS: PCP Internal Medicine; Referring Provider Internal Medicine Cardiovascular Disease; Visit Provider Internal Medicine Cardiovascular Disease
DX: I25.10 Atherosclerotic heart disease of native coronary artery without angina pectoris (principal); Z95.5 Presence of coronary angioplasty implant and graft
CPT/HCPCS: 93798

== ENCOUNTER 2021-04-15 10:30 | Outpatient (RCR) | payer MEDICARE, SELFPAY ==
[2021-03-05 09:51] VITALS: BMI 29.2
--- NOTE | 2021-04-01 08:20 | CR.ITP_ITS ---
Diagnosis Exercise - 30-day Assessment - Visit Date of Eval: 04/01/21 Session #:: 4 - Physician Prescribed Exercise Modalities: NuStep, SciFit Frequency: 3x/week for 12 weeks [36 sessions] Intensity: 60-80% of age predicted maximum heart rate reserve Current METSs:: 2 Target Heart Rate:: 86-106 Current RPE:: 13 Maximum Excercise HR:: 82 Resting Blood Pressure: 128/60 Maximum Exercise Blood Pressure: 128/60 EKG Type: NSR w/rare to occas pac w/1st degree AVB. Sinus arryhythmia. Rare PVC - Outcomes & Goals Goals:: Verbalizes understanding of THR, RPE & goal METS by session 6, Documents in home exercise log/reports 30 min aerobic 5 day/wk by DC, Demonstrates accurate pulse taking by DC, Other additional outcome/goals: see below - Intervention & Plan Exercise Program Goals: Instruct on personal THR & RPE, Instruct on MET level & personal MET goal, Show patient to take own pulse /validate performance until accurate, Instruct on home exercise, Other additional plan/int - 30-day Reassessments 30 day Reassessments:: Progressing - Physical Activity Home Exercise Physical Activity - Home Exercise: Safe Exercise, Warm-up, Self-monitoring, Cool-Down, Home Exercise > 30 min Daily, Sitting Time <3 hours/daily - Outcomes & Goals Outcomes/Goals: Demonstrates correct Warm-up/exercise Cool-Down (S3) if = 2.5 METs, Verbalizes symptoms of exercise intolerance by Session 3 (S3), Demonstrate safe equipment use (S3) & follows exercise prescrition (6), Other: See below - Intervention & Plan Plan/Intervention: Instruct warm-up & cool-down if exercising at > 2 METs, Inst ruct on symptoms of exercise intolerance & actions to take, Instruct & monitor on saf, Assess intial functional capacity & safety risk, Other See below - 30-day Reassessments 30 day Reassessments:: Progressing Nutrition - Initial Assessment Nutrition - 30-Day Assessment - Program Goals Nutrition Program Goals: LDL <100 optimal. 100 - 129 Near optimal. 130 - 159 Borderline High. 160 - 189 High. Total Cholesterol <200 desirable. 200 - 239 Borderline High. >/= 240 High. HDL < 40 Low >/=60 High. Triglycerides <150 desirable. <199 optimal. VlDL 5 - 40. HgbA1C <7%. BMI <25 Patient has diagnosis of Hyperlipidemia (ICD E78)?: Yes - Visit Date of Assessment:: 04/01/21 Session #:: 4 - Cholesterol/Lipids Determine presence & major risk factors that modify LDL goal: Cigarette smoking, Hypertension or hypertensive medication, Low HDL cholesterol <40 mg/dL*, Family history of premature CHD in Male < 55 years: female <65 yearsFa, Age men > 45 years; women >/= 55 years Outcomes/Goals: Pt IDs own risk factors & lifestyle modifications by Session 10, Verbalizes symptoms of angina & response by session 3., Pt independently manages, Other Additional Outcomes/Goals: Intervention/Plan: Advocate for lipid panel cholesterol medication if applicable, Instruct on personal lipid levels & lipid goals/NCEP guidelines, Instruct on cholesterol, Other additional plan/int Referral to dietitian:: Yes - medical nutrition therapy 30-day Reassessments:: Progressing - Diabetes (Other Core Measures) Diabetes Type: Diagnosis Type II ICD-10 E11 Insulin dependent injection/pump?: Yes Non-Insulin Dependent?: Yes Do you monitor your blood sugar at home?: Yes Referral to Diabetic Clinic:: Yes Outcomes/Goals:: Able to state symptoms of, Able to state, Able to state, Other additional Intervention/Plan:: Instruct on, Refer to, Instruct on, Other 30-day Reassessments:: Progressing - Weight Mgt (Other Care) Height: 5 ft 8 in Weight:: 96.388 kg BMI: 32.3 Diagnosis Overweight/Obesity BMI> 30% ICD-10 E66: Yes Outcomes/Goals: Pt sets, maintains & shows weight loss goal & trend during rehab, Other additional outcomes/goals Intervention/Plan: Instruct on ideal BMI & set weight loss goal w/patient, Assist pt to ID & incorporate diet changes for weight loss by S9, Refer to Structured Weight Loss program as appropriate, Encourage goal of using 250- 300dcal per session for weight loss, Other additional plan/interventions 30 day Reassessments:: Progressing - Healthy Eating Habits Will attend diet classes:: Yes Outcomes/Goals:: Consume diet rich in vegs,fruits,whole grain/high fiber,fish,lean meat, Limit sat/trans fats,cholesterol & added salts & sugars, Other additional outcome/goals: Intervention/Plan:: Assess current eating habits, Other Additional plan/interventions 30-day Reassessments:: Progressing - Education Gave educational materials for:: Signs & symptoms of hypoglycemia, Signs & symptoms of hyperglycemia, Relate diabetes to coronary artery disease, Healthy eating Nutrition - 60-Day Assessment Nutrition - 90-Day Assessment Nutrition - Final Assessment Medical - Initial Assessment Medical- 30-Day Assessment - Visit Date of Eval: 04/01/21 Session #:: 4 - Medication Compliance Preventative Medication(s):: Aspirin, Ticagrelor/P2Y12 inhibitor, Statin/lipid, Beta erma H/O mental health issues: depression, anxiety, or addiction?: Yes Doesn?t believe in the benefits of treatment?: Yes - Does not believe CR will help him Believes medications are unnecessary or harmful?: No Has a concern about medication side effects?: No Expresses concern over the cost of medications?: No Outcomes/Goals: Verbalizes medications,desired effect & common side effects @ DC, Pt self-reports following medication regimen, Keeps card in wallet w/medications listed by DC, Other additional outcome/goals: Interventions/plans: Instruct on medication effects & side effects, Review medication list w/patient every two weeks, Instruct importance of taking meds as ordered & assist problem solving, Other additional 30-day Reassessments:: Progressing - Tobacco Use Tobacco Use: Pipe - no intention of quitting Do you use smokeless tobacco?: No Outcomes/Goals: Smoking cessation achieved or maintained by discharge, Identify aids/strategies for achieving smoking cessation by session 6, Other additional outcome/goals Interventions/plan: Instruct on effects of smoking & provide smoking cessation resource, Assist pt to set quit date & provide encouragement, Assist pt to develop strategies to achieve/maintain quit date, Assist pt w/nicotine replacement & medication for cessation success, Other additional plan/interventions 30-day Reassessments:: Progressing - Hypertension Hypertension Diagnosis:: Hypertension ICD-10 I10 Resting Blood Pressure:: 128/60 [place] [employer] Hypertension Guidelines: [place] [employer] Hypertension Guidelines. Normal BP Less than 120/80. Elevated BP 120/80. Hypertension Stage 1: BP 130-139/80-89. Hypertesnion Stage 2: BP 140 or higher/90 or higher. Hypertension Crisis: BP higher than 180/120 Peak Exercise Blood Pressure:: 130/70 Outcomes/Goals: Able to verbalize/achieve optimal blood pressure <130/80, Incorporates diet changes & exercise for blood pressure control by DC, Other additional outcomes/goals 30 day Reassessments:: Progressing - Tobacco Cessation Referral Smoking Cessation Referral:: No Individual Education/Counseling:: No Education Schedule Given:: Yes Medical- 60-Day Assessment Medical- 90-Day Assessment Medical - Final Assessment Psychosocial - Initial Assess Psychosocial - 30-Day Assess - VIsit Date of Eval: 04/01/21 Session #:: 4 History of previous Mental disease:: Yes History of Emotional Disorders: Depression - Outcomes/Goals: See list Psychosocial Outcomes/Goals:: ID's personal stressors & 2 strategies to manage stress by discharge, Other Additional outcome/goals: - Intervention/Plan: See List Interventions/Plan:: Assess stressors,coping strategies & signs of derpression on admission, Instruct/assist pt to develop coping & personal stress Mgt strategies, Refer to Behavioral Health if appropriate, Refer to Physician if appropriate, Instruct patient to recognize signs & symptoms of depression, Instruct patient to recog, Other additional plan/intervention - 30-day Reassessments: 30 day Reassessments:: Progressing Psychosocial - 60-Day Assess Psychosocial - 90-Day Assess Psychosocial - Final Assessmen Patient Health Questionnaire 30-Day Re-eval Assessment 1. Little interest or pleasure in doing things: More than half the days 2. Feeling down, depressed, or hopeless: Several days 3. Trouble falling or staying asleep, or sleeping too much: Nearly every day 4. Feeling tired or having little energy: More than half the days 5. Poor appetite or overeating: Not at all 6. Feeling bad about yourself -- or that you are a failure or have let yourself or your family down: Not at all 7. Trouble concentrating on things, such as reading the newspaper or watching television: Not at all 8. Moving or speaking so slowly that other people could have noticed. Or the opposite - being so fidgety or restless that you have been moving around a lot more than usual: Not at all 9. Thoughts that you would be better off , or of hurting yourself in some way: Not at all How difficult have these problems made it for you to do your work, take care of things at home, or get along with other people?: Somewhat difficult Total Score: 8 Self-Efficacy 30-Day Re-eval Assessment We would like to know how confident you are in doing certain activities. Please select your confidence level for:: Select your confidence level for the following using the scale 1-10 where 1 is not at all confident and 10 is totally confident. Your score is the average of all 6 responses. Fatigue: How confident are you that you can keep the fatigue caused by your disease from interfering with the things you want to do? Select Number: 6 Physical Discomfort or Pain: How confident are you that you can keep the physical discomfort or pain of your disease from interfering with the things you want to do? Select Number: 3 Emotional Distress: How confident are you that you can keep the emotional distress caused by your disease from interfering with the things you want to do? Select Number: 4 Other Symptoms or Health Problems: How confident are you that you can keep other symptoms or health problems from interfering with the things you want to do? Select Number: 3 Different Tasks and Activities: How confident are you that you can do the different tasks and activities needed to manage your health condition so as to reduce your need to see a doctor? Select Number: 4 Medication: How confident are you that you can do things other than just taking medication to reduce how much your illness affects your everyday life? Select Number: 4 Total Score:: 4 Nutrition Survey
[2021-04-01 08:35] VITALS: BP 128/60; BP 130/70; BMI 32.3
== END 2021-04-24 23:59 ==
LOC: CR 10:30
PROVIDERS: PCP Internal Medicine; Referring Provider Internal Medicine Cardiovascular Disease; Visit Provider Internal Medicine Cardiovascular Disease
DX: I25.10 Atherosclerotic heart disease of native coronary artery without angina pectoris (principal); Z95.5 Presence of coronary angioplasty implant and graft
CPT/HCPCS: 93798

== ENCOUNTER 2021-06-11 10:50 | Outpatient (CLI) | payer MEDICARE, SELFPAY ==
[2021-04-01 08:35] VITALS: BMI 32.3
--- NOTE | 2021-06-11 10:59 | ECHOCS_ITS ---
Reason For Study: S/P [place] Procedure This was a 2D Doppler, Color Flow transthoracic echocardiogram. The study was technically difficult. Exam performed in department. Left Ventricle Normal LV size. Segmental dysfunction with preserved ejection fraction (see wall motion). The estimated ejection fraction is 60 %. Diastolic function is indeterminate. Mid-Lateral : Hypokinetic. Lateral [place] : Hypokinetic. Right Ventricle Normal RV size. Normal systolic function. Atria Normal left atrium. Normal right atrium. No doppler evidence for ASD. Mitral Valve There is mild mitral annular calcification. Extension of the mitral annular calcification onto the base of the posterior mitral valve leaflet. Mild focal mitral valve calcification of the anterior leaflet. Trivial mitral valve insufficiency. Tricuspid Valve Normal tricuspid valve. Trivial tricuspid valve insufficiency. Unable to estimate RV systolic pressure/pulmonary artery pressure due to technically difficult study. Aortic Valve Trisinus/trileaflet aortic valve. Mild diffuse aortic valve thickening. Moderate focal aortic valve calcification. Pulmonic Valve The pulmonic valve is not well visualized. Trivial pulmonic valve insufficiency. Great Vessels Normal sized aortic root. Calcified aortic root. Pericardium/Pleural No pericardial effusion. Medication 22 gauge I.V. with prn adaptor inserted into right arm. Diluted definity 3ml given slow IV push to enhance endocardial definition. Performed a rapid injection of agitated mix of 9 cc saline and 1cc air to assess for atrial septal defect. MMode/2D Measurements & Calculations LVIDd: 4.3 cm IVSd: 0.81 cm Ao root diam: 3.3 cm LVIDs: 3.0 cm LVPWd: 0.98 cm RVDd: 3.1 cm FS: 30.6 % LAV(MOD-bp): 29.7 ml LVAd ap4: 32.1 cm2 SV(MOD-sp4): 64.9 ml LAV(MOD-bp) Indexed: 14.9 ml/m2 LVLd ap4: 8.0 cm LAV(MOD-sp2): 31.5 ml EDV(MOD-sp4): 108.8 ml LAV(MOD-sp4): 28.5 ml EDV(sp4-el): 109.6 ml LVAs ap4: 18.7 cm2 LVLs ap4: 6.5 cm ESV(MOD-sp4): 43.9 ml ESV(sp4-el): 45.5 ml EF(MOD-sp4): 59.7 % EF(sp4-el): 58.4 % SV(sp4-el): 64.0 ml LA A4 area: 12.7 cm2 LA dimension(2D): 3.4 cm RA A4 area: 13.6 cm2 Time Measurements MV dec time: 0.28 sec Doppler Measurements & Calculations MV E max chandler: 75.4 cm/sec Lat Peak E' Chandler: 9.1 cm/sec Med Peak E' Chandler: 8.5 cm/sec MV A max chandler: 100.8 cm/sec E/E' lat: 8.3 E/E' med: 8.9 MV E/A: 0.75 Ao V2 max: 125.0 cm/sec LV V1 max: 103.3 cm/sec PA V2 max: 97.3 cm/sec Ao max P.2 mmHg LV V1 max P.3 mmHg ECHO/Echo Complete W/ Contrast Interpretation Summary The study was technically difficult. Segmental dysfunction with preserved ejection fraction (see wall motion). The estimated ejection fraction is 60 %. There is mild mitral annular calcification. Extension of the mitral annular calcification onto the base of the posterior mi tral valve leaflet. Mild focal mitral valve calcification of the anterior leaflet. Trivial mitral valve insufficiency. Trivial tricuspid valve insufficiency. Mild diffuse aortic valve thickening. Moderate focal aortic valve calcification. Trivial pulmonic valve insufficiency. Calcified aortic root. Unable to estimate RV systolic pressure/pulmonary artery pressure due to techni christ difficult study. Diastolic function is indeterminate. Ordering Physician: Compa Rojas/Jonathan Nelson Referring Physician: DUSTIN RHODES Performed By: Arminda Salazar RDCS
== END 2021-06-11 23:59 | disposition home or self-care (01) ==
PROVIDERS: PCP Internal Medicine; Referring Provider Nurse Practitioner Gerontology; Visit Provider Nurse Practitioner Gerontology
DX: I25.5 Ischemic cardiomyopathy (principal)
CPT/HCPCS: 93306; Q9957; A4216; C8929

== ENCOUNTER 2021-06-22 11:28 | Outpatient (CLI) | payer MEDICARE, SELFPAY ==
[2021-04-01 08:35] VITALS: BMI 32.3
--- NOTE | 2021-06-22 13:41 | NEURO_ITS ---
NCS and/or EMG Patient Report Ordering Doctor: Kelly Vargas DATE OF SERVICE: 06/22/21 Indication: Weakness and numbness of both lower extremities for many years (~2007). Symptoms have progressed to the point where he is now falling. Evaluate for peripheral neuropathy. Findings: Nerve conduction studies were performed in the right and left lower extremities. The right peroneal motor study recording the extensor digitorum brevis showed a reduced amplitude, normal distal latency and normal conduction velocity. No conduction block or focal slowing was present across the fibular neck. The right tibial motor study recording the abductor hallucis brevis showed a reduced amplitude, prolonged distal latency and slowed conduction velocity. The right sural sensory response was absent. The right superficial peroneal sensory response was absent. The left peroneal motor study recording the extensor digitorum brevis showed a reduced amplitude, normal distal latency and borderline conduction velocity. No conduction block or focal slowing was present across the fibular neck. The left tibial motor study recording the abductor hallucis brevis showed a reduced amplitude, normal distal latency and borderline conduction velocity. The left sural sensory response was absent. The left superficial peroneal sen lemuel response was absent. For comparison purposes, the left radial sensory response was recorded. It demonstrated a borderline amplitude, normal latency and borderline conduction velocity. Needle EMG of the right lower extremity muscles was performed. The lumbar paraspinals were not sampled due to the common presence of denervation in the diabetic population. Sparse active denervation was present in the extensor hallucis longus muscle. Motor units demonstrated chronic reinnervation changes in a length-dependent fashion. Impression: This is an abnormal study. There is electrophysiologic evidence of a generalized, axonal, active and chronic, sensorimotor, peripheral polyneuropathy. Elias Pak D.O. Multi Select Codes Neurology Neurology Interp Codes: 77550-64 Musc tst done w/nerv tst storey (interp) and 52929-68 Nr cndj test 7-8 studies (interp)
== END 2021-06-22 23:59 | disposition home or self-care (01) ==
LOC: PSN 11:29
PROVIDERS: PCP Internal Medicine; Referring Provider Internal Medicine; Visit Provider Internal Medicine
DX: G62.9 Polyneuropathy, unspecified (principal); R20.0 Anesthesia of skin
CPT/HCPCS: 95885; 95911

== ENCOUNTER 2021-07-20 01:57 | Emergency (ER) | payer MEDICARE, SELFPAY ==
[2021-04-01 08:35] VITALS: BMI 32.3
[2021-07-20 01:58] VITALS: BP 120/81; PULSE 102; RESP 20; TEMP 36.6; O2SAT 95; BMI 31.8
[2021-07-20 02:10] LABS: Bedside Glucose 250 mg/dL (74-106)
--- NOTE | 2021-07-20 02:12 | RAD_ITS ---
STUDY: X-RAY CHEST REASON FOR EXAM: Male, 76 years old. sob TECHNIQUE: Single AP portable view of the chest. COMPARISON: None. FINDINGS: The lungs are clear and expanded. There is no demonstrated pleural abnormality. Normal size heart. Normal mediastinum and velasquez. Normal visualized pulmonary arteries. Normal visualized aortic arch and descending thoracic aorta. Normal visualized thoracic spine. There is degenerative osteoarthritis of the bilateral shoulders. There is no demonstrated abnormality of the visualized soft tissue structures of the upper abdomen. RAD/Chest 1 View (Portable) IMPRESSION: Degenerative changes, as described above. No demonstrated acute cardiopulmonary process. Electronically Signed: Blake Cutler MD at 3:04 EDT ,
--- NOTE | 2021-07-20 02:12 | EKG12_ITS ---
Test Reason : WEAKNESS Blood Pressure : / mmHG Vent. Rate : 096 BPM Atrial Rate : 096 BPM P-R Int : 236 ms QRS Dur : 078 ms QT Int : 328 ms P-R-T Axes : 029 -17 067 degrees QTc Int : 414 ms Sinus rhythm with 1st degree A-V block Low voltage QRS Inferior infarct , age undetermined Abnormal ECG Confirmed by ENDER CAMP, GARRICK ([id number]), tape editor ANURAG CORBIN ([id number]) on 07/21/2021 10:40:34 AM Referred By: Confirmed By:GARRICK HANDLEY MD
--- NOTE | 2021-07-20 02:27 | EDS_ITS ---
HPI History of Present Illness Chief Complaint: Hyperglycemia Informant: patient Onset/Context/Timing Onset: Today Narrative Narrative: Patient presents via EMS secondary to elevated blood sugar. Patient states he just felt very weak today. He states he forgot to take his insulin but does admit to taking it last evening. He was getting blood sugar readings of high on his meter at home. He denies chest pain. He does report shortness of breath with any exertion to get around. He denies vomiting or diarrhea. He does not remember if he ate today. [facility] Medical History Atherosclerotic heart disease of alutiiq coronary artery without angina pectoris BPH (benign prostatic hyperplasia) Burn of thigh Burn of thigh, left, second degree Cardiomyopathy, ischemic Cellulitis of right anterior lower leg Cellulitis of right lower extremity Depression Diarrhea Fatigue History of bladder cancer History of colon cancer Hyperlipemia Hypertension Multiple adenomatous polyps Presence of stent in coronary artery (~01/28/21) Reflex sympathetic dystrophy of right leg Sepsis Tobacco abuse Tobacco abuse counseling Type II diabetes mellitus Wound, open, hip or thigh Home Medications duloxetine 60 mg PO DAILY 02/03/15 [History Last Taken Unknown] primidone 100 mg PO TID 02/03/15 [History Last Taken Unknown] cholecalciferol (vitamin D3) [Vitamin D3] 5,000 unit PO DAILY 10/12/16 [History Last Taken Unknown] pregabalin [Lyrica] 100 mg PO TID 10/12/16 [History Last Taken Unknown] bupropion HCl 150 mg PO DAILY 10/04/19 [History Last Taken Unknown] insulin degludec-liraglutide 40 unit SQ QHS 10/04/19 [History Last Taken Unknown] rosuvastatin 40 mg tablet 40 mg PO DAILY tab 10/28/20 [History Last Taken Unknown] Farxiga 10 mg PO DAILY 01/28/21 [History Last Taken Unknown] losartan 50 mg PO DAILY 01/28/21 [History Last Taken Unknown] amlodipine 5 mg tablet 5 mg PO DAILY tab 02/12/21 [History Last Taken Unknown] ascorbic acid (vitamin C) 500 mg tablet 500 mg PO DAILY 02/12/21 [History Last Taken Unknown] zinc 50 mg tablet 50 mg PO DAILY 02/12/21 [History Last Taken Unknown] clopidogrel 75 mg tablet 75 mg PO .COMPLEX #90 tab 02/27/21 [Rx Last Taken Unknown] metoprolol tartrate 25 mg tablet 25 mg PO BID #60 tab 04/02/21 [Rx Last Taken Unknown] aspirin 81 mg tablet,delayed release 81 mg PO DAILY 06/26/21 [History Last Taken Unknown] buspirone 15 mg tablet 15 mg PO BID tab 06/26/21 [History Last Taken Unknown] metformin 500 mg tablet,extended release 24 hr 500 mg PO TID tab 06/26/21 [History Last Taken Unknown] Allergy/AdvReac Type Severity Reaction Status Date / Time Sulfa (Sulfonamide Allergy Hives Verified 07/20/21 02:03 Antibiotics) acetaminophen [From Vicodin] AdvReac Nausea Verified 07/20/21 02:03 hydrocodone bitartrate AdvReac Nausea Verified 07/20/21 02:03 [From Vicodin] topiramate [From Topamax] AdvReac memory Verified 07/20/21 02:03 loss Family History Father Heart disease CHF (congestive heart failure) Surgical History History of ankle surgery History of appendectomy History of bladder surgery History of cholecystectomy History of colectomy History of colonoscopy Presence of coronary angioplasty implant and graft (~01/28/21) Social History household members: spouse housing: house Smoking Status: Current every day smoker tobacco type: pipe alcohol intake: current alcohol intake frequency: holidays/special occasions only substance use type: does not use caffeine: Yes what type of physical activity do you participate in: none frequency: does not exercise ROS ROS ED Constitutional Constitutional ED: Denies chills or fever(s) Eyes Eyes: Denies change in vision ENT ENT ED: Denies sore throat Cardiovascular Cardiovascular: Denies chest pain Respiratory/Chest Respiratory/Chest: Reports dyspnea; Denies cough Gastrointestinal Gastrointestinal: Denies abdominal pain, diarrhea, nausea or vomiting Musculoskeletal Musculoskeletal: Denies back pain or neck pain Integumentary Denies rash Neurologic Neurologic: Denies headache(s) or weakness Allergic/Immunologic Allergic/Immunologic ED: Denies urticaria EXAM Physical Exam Const Vital Signs: 07/20/21 01:58 07/20/21 02:04 Temperature 97.9 F Temperature Source Oral Pulse Rate 102 H Respiratory Rate 20 H Respiratory Effort Normal Respiratory Pattern Normal Blood Pressure 120/81 H Blood Pressure Mean 94 Pulse Ox 95 Oxygen Delivery Method Room Air Positive well nourished and well developed General Appearance ED: well developed HEENT Reports dry mucous membranes Mouth ED: Yes dry mucous membranes Mouth: dry mucous membranes Eyes PERRL and EOMs intact bilaterally Neck supple Chest Wall inspection of chest normal and palpation of chest normal Resp normal respiratory effort and clear to auscultation bilaterally Cardio regular rate and regular rhythm GI normal to inspection, nondistended, normoactive bowel sounds and non-tender Palpation: soft Extremity normal to inspection Neuro oriented x3 Sensorium / Orientation: alert Psych mental status grossly normal Skin no rashes or lesions noted MDM MDM MDM Narrative Medical decision making narrative: IV line established. Patient given IV fluids. Lab work obtained. Blood sugar on arrival was 250. Lab Data Attestation: I reviewed the patient's lab results. Labs: Laboratory Results - last 24 hr 07/20/21 07/20/21 07/20/21 02:04 02:18 02:18 WBC 12.3 H RBC 5.32 Hgb 16.6 H Hct 47.0 MCV 88.3 MCH 31.2 MCHC 35.3 RDW Std Deviation 43.8 RDW Coeff of Ranjit 13.4 Plt Count 280 MPV 8.5 Immature Gran % (Auto) 0.800 Neut % (Auto) 78.6 H Lymph % (Auto) 8.4 L Garvin % (Auto) 11.1 H Eos % (Auto) 0.3 Baso % (Auto) 0.8 Absolute Neuts (auto) 9.7 H Absolute Lymphs (auto) 1.03 Nucleated RBC % 0 Sodium 132 L Potassium 5.1 Chloride 102 Carbon Dioxide 22.0 Anion Gap 8 BUN 18 Creatinine 1.55 H Estim Creat Clear Calc 38.00 Est GFR (MDRD) Af Amer 56 L Est GFR (MDRD) Non-Af 46 L BUN/Creatinine Ratio 11.6 Glucose 244 H Calcium 9.7 Total Bilirubin 0.30 Direct Bilirubin 0.10 AST 36 ALT 50 Alkaline Phosphatase 74 Total Protein 7.9 Albumin 3.8 Globulin 4.1 Acetone Level POC Glucose 250 H 07/20/21 02:18 WBC RBC Hgb Hct MCV MCH MCHC RDW Std Deviation RDW Coeff of Ranjit Plt Count MPV Immature Gran % (Auto) Neut % (Auto) Lymph % (Auto) Garvin % (Auto) Eos % (Auto) Baso % (Auto) Absolute Neuts (auto) Absolute Lymphs (auto) Nucleated RBC % Sodium Potassium Chloride Carbon Dioxide Anion Gap BUN Creatinine Estim Creat Clear Calc Est GFR (MDRD) Af Amer Est GFR (MDRD) Non-Af BUN/Creatinine Ratio Glucose Calcium Total Bilirubin Direct Bilirubin AST ALT Alkaline Phosphatase Total Protein Albumin Globulin Acetone Level NEGATIVE POC Glucose Radiography Chest X-Ray - ED: 1 View, Read by ED Physician and Chronic Changes Diagnostic Testing: Clinical Impression(s) from Imaging Studies Chest X-Ray 07/20/21 02:12 IMPRESSION: Degenerative changes, as described above. No demonstrated acute cardiopulmonary process. Electronically Signed: Blake Cutler MD at 3:04 EDT Reading Location ID and State: [facility] / [place] Tel , Service support , EKG Initial EKG: Attestation: I personally reviewed and interpreted this EKG as follows: Interpretation: Sinus Rhythm (Sinus at 96 with first-degree AV block. No acute ST change.) Treatment and Re-Evaluation Narrative: EKG and chest x-ray unremarkable. Lab work reveals white count of 12.3. Chemistry studies reveal glucose of 244 with a creatinine 1.55. This does appear near his baseline. Sodium is 132. On repeat evaluation patient resting comfortably. He is reassured with these findings. I am now told that he took his insulin before he called the squad. He states he gave himself his normal amount that he would take at bedtime. In light of this repeat Accu-Chek was obtained an hour and a half after his blood work was drawn. Repeat blood sugar is 212. At this time I do feel safe with the patient being discharged to home. Return instructions are provided. Discharge Plan Triage Chief Complaint: Hyperglycemia ED Provider: Edith Mckeon Dx/Rx/DC Orders Clinical Impression: Hyperglycemia, History of diabetes mellitus Instructions: ED Diabetic Hyperglycemia Prescriptions: No Action rosuvastatin 40 mg tablet 40 mg PO DAILY RF: 0 zinc 50 mg tablet 50 mg PO DAILY RF: 0 ascorbic acid (vitamin C) 500 mg tablet 500 mg PO DAILY RF: 0 amlodipine 5 mg tablet 5 mg PO DAILY RF: 0 aspirin [Adult Aspirin Regimen] 81 mg tablet,delayed release (DR/EC) 81 mg PO DAILY RF: 0 primidone 50 MG tablet 100 mg PO TID RF: 0 duloxetine 60 MG capsule 60 mg PO DAILY RF: 0 cholecalciferol (vitamin D3) [Vitamin D3] 1,000 UNIT capsule 5,000 unit PO DAILY RF: 0 pregabalin [Lyrica] 100 MG capsule 100 mg PO TID RF: 0 insulin degludec-liraglutide 3 ML insulin pen 40 unit SQ QHS RF: 0 bupropion HCl 150 MG tablet extended release 24 hr 150 mg PO DAILY RF: 0 buspirone 15 mg tablet 15 mg PO BID RF: 0 losartan 50 mg Tablet 50 mg PO DAILY RF: 0 Farxiga 10 mg Tablet 10 mg PO DAILY RF: 0 metformin 500 mg tablet extended release 24 hr 500 mg PO TID RF: 0 clopidogrel 75 mg tablet 75 mg PO .COMPLEX Qty: 90 RF: 3 metoprolol tartrate 25 mg tablet 25 mg PO BID Qty: 60 RF: 11 Primary Care Provider: Kelly Vargas Referrals: Kelly Vargas DO [Primary Care Provider] - 1 Week if not improving Disposition Disposition: Home, Self Care
[2021-07-20] MEDS: 0.9% Normal Saline 1,000 ML 150 ML IV (02:30)
[2021-07-20 02:53] LABS: Absolute Lymphocyte Count 1.03 X10^3/uL (0.83-4.51); Absolute Neutrophil Count 9.7 X10^3/uL (2.0-7.7); Basophil% 0.8 % (0-1); Eosinophil# 0.04 X10^3/uL; Eosinophils% 0.3 % (0-5); Hemoglobin 16.6 g/dL (13.0-16.5); Lymphocyte # 1.03 X10^3/ul (0.83-4.51); Lymphocyte % 8.4 % (19-41); Mean Corp Hgb Conc 35.3 g/dL (32-36); Mean Corpuscular Hgb 31.2 pg (27.0-32.0); Mean Corpuscular Volume 88.3 fL (80-94); Mean Platelet Vol. 8.5 fl (6.2-12.0); Monocyte# 1.36 X10^3/uL; Monocyte% 11.1 % (0-10); NRBC Flagged by Analyzer 0 % (0-5); Neutrophil # 9.65 X10^3/uL (2.7-7.7); Neutrophil % 78.6 % (47-70); Platelet Count 280 K/mm3 (150-450); RBC Distribution Width CV 13.4 % (11.6-14.6); RBC Distribution Width SD 43.8 fl (35.1-43.9); Red Blood Count 5.32 M/mm3 (4.6-6.2); White Blood Count 12.3 K/mm3 (4.4-11.0)
[2021-07-20 03:13] LABS: AST(SGOT) 36 U/L (15-37); Alanine Aminotransfer ALT/SGPT 50 U/L (16-61); Albumin, Serum 3.8 g/dL (3.2-5.0); Alkaline Phosphatase 74 U/L (45-117); Anion Gap 8 (5-15); BUN 18 mg/dL (7-18); BUN/Creat Ratio 11.6 RATIO (10-20); Calcium,Total 9.7 mg/dL (8.5-10.1); Chloride 102 mmol/L (98-107); Creatinine, Serum 1.55 mg/dL (0.70-1.30); EST Glomerular Filtration Rate 46 mL/min (>60); Est Glom Filt Rate - Afr Amer 56 mL/min (>60); Globulin 4.1 g/dL (2.2-4.2); Glucose 244 mg/dL (74-106); Potassium 5.1 mmol/L (3.5-5.1); Protein, Total 7.9 g/dL (6.4-8.2); Sodium Level 132 mmol/L (136-145)
[2021-07-20 03:46] LABS: Bedside Glucose 212 mg/dL (74-106)
[2021-07-20 03:49] VITALS: BP 114/79; PULSE 91; RESP 22; O2SAT 95
--- NOTE | 2021-07-22 18:07 | CM.ED ---
ER RNCM DC F/u Call: Seen in ER 07.20.21 for Hyperglycemia. On Metformin and Insulin, forgot to take insulin, CC:weakness Called patient listed cell number, no answer and VM did not identify correct patient-therefore no VM left at this time. Jessica Gutierrez, VERENICECM
== END 2021-07-20 06:30 | disposition home or self-care (01) ==
PROVIDERS: Emergency Provider Emergency Medicine; PCP Internal Medicine; Visit Provider Emergency Medicine
DX: E11.65 Type 2 diabetes mellitus with hyperglycemia (principal); I42.9 Cardiomyopathy, unspecified; Z79.4 Long term (current) use of insulin; I25.10 Atherosclerotic heart disease of native coronary artery without angina pectoris; I10 Essential (primary) hypertension; E78.5 Hyperlipidemia, unspecified; N40.0 Benign prostatic hyperplasia without lower urinary tract symptoms; F17.290 Nicotine dependence, other tobacco product, uncomplicated; Z79.02 Long term (current) use of antithrombotics/antiplatelets; Z79.82 Long term (current) use of aspirin; Z79.899 Other long term (current) drug therapy; Z95.5 Presence of coronary angioplasty implant and graft
CPT/HCPCS: 71045; 80048; 80076; 82009; 82962; 85025; 93005; 96360; 96361; 99285; J7030; A4216

== ENCOUNTER 2021-08-05 08:51 | Outpatient (CLI) | payer MEDICARE, SELFPAY ==
[2021-04-01 08:35] VITALS: BMI 32.3
[2021-08-05 12:57] LABS: Thyroid Stim Hormone (TSH) 1.96 uIU/mL (0.358-3.74)
[2021-08-05 13:00] LABS: Vitamin B12 309 pg/mL (211-911)
[2021-08-17 12:07] LABS: Free Kappa Light Chains 44.8 mg/L (3.3-19.4); Free Lambda Light Chains 28.4 mg/L (5.7-26.3)
[2021-08-17 14:20] LABS: Vitamin B1, Thiamine 138.8 nmol/L (66.5-200.0)
== END 2021-08-05 23:59 | disposition home or self-care (01) ==
LOC: MTLAB 08:54
PROVIDERS: PCP Internal Medicine; Referring Provider Psychiatry & Neurology Neurology; Visit Provider Psychiatry & Neurology Neurology
DX: G62.9 Polyneuropathy, unspecified (principal); G31.84 Mild cognitive impairment of uncertain or unknown etiology; E55.9 Vitamin D deficiency, unspecified
CPT/HCPCS: 36415; 82607; 82652; 82746; 83883; 84425; 84443

== ENCOUNTER 2021-08-12 18:00 | Outpatient (RCR) | payer MEDICARE, SELFPAY ==
[2021-04-01 08:35] VITALS: BMI 32.3
--- NOTE | 2021-08-17 14:36 | HP.PTEVAL ---
Patient's Visit Information DAFNE OBANDO is a 76 year old M referred to Physical Therapy by Dr. Paul Doty MD with a diagnosis of PD. Date of Evaluation: 08/12/21 Physical Therapist: THO Toro - Visit Plan Frequency: 1-2x /Week Duration: 2 Weeks Plan: Do TUG. 1-2 additional visits due to high co pay for stretching, dual movements, gait, strength, with HEP. Pt will start the Parkinson's class NERI. - Subjective Pt was Dx with PD a week and a half ago. Pt is having trouble with falling. His says that his upper body goes further than his lower body. Pt walks around at home with a cane for stability. He has stairs at home but does not use them. When he does use them he has 2 rails and goes 2 feet to a stair. 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 He does not sleep much at night. He wakes up every 2 hours (he sleeps intermittantly). He has noticed improvement with his tremors. - Objective Gait: Pt is SOB walking back to the treatment area with straight cane and short strides, flexed trunk. Pt able to take bigger steps and improved posture on command. Stairs: up and down recip with 2 hand rails with increase in SOB. CATSIB: 60. FGA: 14. Bed Mobility: Pt is able to roll R and L without any difficulty, supine to sit indep. 4 square: 17:52 seconds. LE MMT: B hip flex 4+/5, B knee flex 4+/5, B knee ext 4+/5, B hip abd 4+/5,. TUG: Spent a lot of time educating the patient on importance of exercise, posture. - Balance/Special Test Scores Functional Gait Assessment Score: 14 % Disability: 53.3400 CATSIB Score (Max score 120 seconds): 60 Lower Extremity Functional Score: 17 - Goals Goal 1:: I HEP Goal Time Frame: 4-6 Weeks - Rehabilitation Potential Rehabilitation Potential: Good - Anticipated Interventions Patient/Client Instruction: Educate patient on: Condition, Plan of Care Therapeutic Exercise to Include: Strength training, Balance training, Coordination, Body mechanics, Postural training, Flexibilty training, Gait and locomotor training, Neuromotor development, Active ROM For the Purpose of:: To decrease pain, To decrease swelling/inflammation, To increase ROM, To improve nutrient delivery to tissue, To improve muscle performance and motor function, To improve ability to perform ADL's, To increase tolerance to activity/condition/position, To improve performance and independence with ADL's, To improve ability of physical actions for home/community/work/leisure, To improve gait and locomotor functions, To improve health of tissue, To decrease soft tissue restriction, To increase flexibility/ROM, To improve balance Functional Training to Include: Gait training For the Purpose of:: To improve gait and locomotor functions, To improve safety with gait Thank you for the opportunity to evaluate your patient. For Medicare and Medicare HMO plans, please review the plan of care and approve it. It will need to be FAXED BACK to us at [phone] for Medicare purposes. For Medicare only, by signing this I certify the plan of care. Please let me know if there are questions or concerns regarding this plan of care. Physician Signature: Date:
--- NOTE | 2021-11-17 09:46 | HP.PT.NRP ---
DAFNE OBANDO was seen in my office for initial evaluation on 08/12/21. The following Plan of Care was established for this patient: Initial Frequency: 1-2x /Week Initial Duration: 2 Weeks Patient/Client Instruction: Educate patient on: Condition, Plan of Care Therapeutic Exercise to Include: Strength training, Balance training, Coordination, Body mechanics, Postural training, Flexibilty training, Gait and locomotor training, Neuromotor development, Active ROM For the Purpose of:: To decrease pain, To decrease swelling/inflammation, To increase ROM, To improve nutrient delivery to tissue, To improve muscle performance and motor function, To improve ability to perform ADL's, To increase tolerance to activity/condition/position, To improve performance and independence with ADL's, To improve ability of physical actions for home/community/work/leisure, To improve gait and locomotor functions, To improve health of tissue, To decrease soft tissue restriction, To increase flexibility/ROM, To improve balance Functional Training to Include: Gait training For the Purpose of:: To improve gait and locomotor functions, To improve safety with gait This patient was last seen in our office 08/12/21. Pertinent comments regarding their Physical therapy will appear below: DC PT as pt did not show up other than his initial evaluation. At this point I will be discontinuing this patient from physical therapy. I would be happy to see this patient again in the future if found appropriate by the physician. Thank you! Gayle Lora, THO Balance/Gait/Functional tests - Balance/Special Test Scores Functional Gait Assessment Score: 14 % Disability: 53.3400 CATSIB Score (Max score 120 seconds): 60 Lower Extremity Functional Score: 17
== END 2021-08-12 19:00 | disposition home or self-care (01) ==
LOC: PT 18:00
PROVIDERS: PCP Internal Medicine; Referring Provider Psychiatry & Neurology Neurology; Visit Provider Psychiatry & Neurology Neurology
DX: G20 Parkinson's disease (principal)
CPT/HCPCS: 97162

== ENCOUNTER → 2021-08-28 | Outpatient (CLI) | payer MEDICARE, SELFPAY ==
[2021-04-01 08:35] VITALS: BMI 32.3
--- NOTE | 2021-08-28 13:28 | CT_ITS ---
STUDY: CT BRAIN WITHOUT CONTRAST REASON FOR EXAM: Male, 76 years old. Parkinson''s, mild cognitive impairment -- Cannot have MRI RADIATION DOSAGE (If Supplied By Facility): CTDIvol = ( 44.99 ) mGy, DLP = ( 863.60 ) mGycm TECHNIQUE: Transaxial CT imaging of the brain was performed without administration of intravenous contrast material. Individualized dose optimization techniques were used for this CT. COMPARISON: No relevant priors. FINDINGS: Normal soft tissue structures. Normal calvarium. There is mild cerebral atrophy with widening of the extra-axial spaces and ventricular dilatation. There are areas of decreased attenuation within the white matter tracts of the supratentorial brain, consistent with microvascular disease changes. Normal basal ganglia and thalami. Normal brainstem. There is mild cerebellar atrophy. There is no intracranial hemorrhage. There are no findings of an acute ischemic infarction. Atherosclerotic calcification of the cavernous portions of the internal carotid arteries and vertebral arteries. Mucosal thickening of the maxillary sinuses bilaterally slightly worse on the left side. CT/Brain/Head without Contrast IMPRESSION: Chronic involutional changes of the brain. Electronically Signed: Guillaume Romero MD at 15:12 EDT ,
== END | disposition home or self-care (01) ==
LOC: CT 13:28
PROVIDERS: PCP Internal Medicine; Referring Provider Psychiatry & Neurology Neurology; Visit Provider Psychiatry & Neurology Neurology
DX: G20 Parkinson's disease (principal); G31.84 Mild cognitive impairment of uncertain or unknown etiology
CPT/HCPCS: 70450

== ENCOUNTER → 2022-01-14 | Outpatient (CLI) | payer MEDICARE, SELFPAY ==
[2021-04-01 08:35] VITALS: BMI 32.3
[2022-01-14 15:22] LABS: Anion Gap 8 (5-15); BUN 19 mg/dL (7-18); BUN/Creat Ratio 14.1 RATIO (10-20); Calcium,Total 9.4 mg/dL (8.5-10.1); Chloride 108 mmol/L (98-107); Creatinine, Serum 1.35 mg/dL (0.70-1.30); EST Glomerular Filtration Rate 54 mL/min (>60); Est Glom Filt Rate - Afr Amer 66 mL/min (>60); Glucose 144 mg/dL (74-106); Magnesium 2.1 mg/dL (1.6-2.6); Potassium 4.4 mmol/L (3.5-5.1); Sodium Level 138 mmol/L (136-145)
[2022-01-18 15:08] LABS: Albumin 3.6 g/dL (2.9-4.4); Alpha-1-Globulins 0.3 g/dL (0.0-0.4); Gamma Globulin 1.1 g/dL (0.4-1.8); Immunoglobulin A 250 mg/dL (61-437); Immunoglobulin G 950 mg/dL (603-1613); Immunoglobulin M 69 mg/dL (15-143); PROEL- TOTAL PROTEIN 7.2 g/dL (6.0-8.5)
== END | disposition home or self-care (01) ==
LOC: MTLAB 11:53
PROVIDERS: PCP Internal Medicine; Referring Provider Psychiatry & Neurology Neurology; Visit Provider Psychiatry & Neurology Neurology
DX: G20 Parkinson's disease (principal); G62.9 Polyneuropathy, unspecified; E55.9 Vitamin D deficiency, unspecified
CPT/HCPCS: 36415; 80048; 82652; 82784; 83735; 84165; 86334; 86335

== ENCOUNTER 2022-06-25 18:30 | Emergency (ER) | payer MEDICARE, SELFPAY ==
[2021-04-01 08:35] VITALS: BMI 32.3
[2022-06-25 18:31] VITALS: BP 129/83; PULSE 80; RESP 18; TEMP 35.6; O2SAT 95
[2022-06-25 20:47] VITALS: BMI 29.4
--- NOTE | 2022-06-25 21:26 | CT_ITS ---
INDICATION: Head injury EXAMINATION: CT BRAIN - CT Head or Brain W/O Contrast Injection TECHNIQUE: Multiple axial images were obtained of the head without intravenous contrast. A radiation dose optimization technique was used for this scan. IV Contrast dosage and agent: None. COMPARISON: 08/28/2021 FINDINGS: BRAIN PARENCHYMA: No intra- or extra-axial hemorrhage. No evidence of acute infarct. No intracranial mass or mass effect. There is preservation of the perdue/white matter interface. Posterior fossa structures are unremarkable. CSF SPACES: Ex vacuo ventricular dilation is proportionate to global cerebral volume loss. Basal cisterns are patent. CALVARIUM, SKULL BASE, PARANASAL SINUSES AND MASTOID AIR CELLS: Clear. No discrete lytic or blastic abnormalities. ORBITS: Both globes, extraocular muscles, optic nerves and retrobulbar fat appear unremarkable. ASPECTS Score for Acute Strokes: 10 CT/Brain/Head without Contrast IMPRESSION: Negative Brain CT without contrast. Electronically Signed: Jonathan Patel MD at 22:06 EST ,
--- NOTE | 2022-06-25 21:26 | EX.ED.DYSGE1 ---
HPI History of Present Illness Chief Complaint: Head Injury Narrative Narrative: 77-year-old male presenting with scalp laceration to the vertex of his scalp. He states he has Parkinson's and has difficulty walking chronically. There is nothing new about it. Today he fell and hit his head on the side of the shower. No LOC. He does not have any new dizziness, nauseous, visual complaints. He has been ambulatory. He states he is not in much pain. He has a mild headache. He was able to control the bleeding of the laceration. Tetanus is up-to-date. [facility] Medical History Altered mental status Atherosclerotic heart disease of [place] coronary artery without angina pectoris BPH (benign prostatic hyperplasia) Burn of thigh Burn of thigh, left, second degree CAD (coronary artery disease) Carcinoma in situ of skin, unspecified Cardiomyopathy, ischemic Cellulitis of right anterior lower leg Cellulitis of right lower extremity Chronic sinusitis Depression Diarrhea Fall Fatigue History of bladder cancer History of colon cancer Hypercholesterolemia Hyperlipemia Hypertension Hypertensive chronic kidney disease with stage 1 through stage 4 chronic kidney disease, or unspecified chronic kidney disease Hypoglycemia Insomnia Metabolic syndrome Microalbuminuria Morbid obesity Multiple adenomatous polyps Neuropathy Olecranon bursitis of left elbow Osteoarthritis Other proteinuria Poor balance Poorly controlled diabetes mellitus Presence of stent in coronary artery (~01/28/21) Reflex sympathetic dystrophy of right leg Sepsis Tobacco abuse Tobacco abuse counseling Tremor Type II diabetes mellitus Vitamin D deficiency Wound, open, hip or thigh Home Medications duloxetine 60 mg capsule,delayed release 60 mg PO DAILY 02/03/15 [History Last Taken Unknown] bupropion HCl 150 mg 24 hr tablet, extended release 150 mg PO DAILY 10/04/19 [History Last Taken Unknown] insulin degludec 100 unit-liraglutide 3.6 mg/mL(3 mL) subcutaneous pen 40 unit SQ QHS 10/04/19 [History Last Taken Unknown] rosuvastatin 40 mg tablet 40 mg PO DAILY 10/28/20 [History Last Taken Unknown] dapagliflozin 10 mg tablet (Farxiga) 10 mg PO DAILY 01/28/21 [History Last Taken Unknown] losartan 50 mg tablet 50 mg PO DAILY 01/28/21 [History Last Taken Unknown] aspirin 81 mg tablet,delayed release (Adult Aspirin Regimen) 81 mg PO DAILY 06/26/21 [History Last Taken Unknown] metformin 500 mg tablet,extended release 24 hr 500 mg PO TID 06/26/21 [History Last Taken Unknown] Rollaler #1 ea 08/24/21 [Rx Last Taken Unknown] Rollator #1 ea 08/24/21 [Rx Last Taken Unknown] finasteride 5 mg tablet 5 mg PO DAILY 10/29/21 [History Last Taken Unknown] tamsulosin 0.4 mg capsule (Flomax) 0.4 mg PO QHS 10/29/21 [History Last Taken Unknown] clopidogrel 75 mg tablet 75 mg PO DAILY #90 tabs 02/08/22 [Rx Last Taken Unknown] buspirone 15 mg tablet 15 mg PO BID 02/15/22 [History Last Taken Unknown] metoprolol tartrate 25 mg tablet 25 mg PO BID #60 tabs 05/17/22 [Rx Last Taken Unknown] carbidopa 25 mg-levodopa 100 mg tablet (Sinemet) 2 tab PO .COMPLEX #150 tabs 06/21/22 [Rx Last Taken Unknown] cholecalciferol (vitamin D3) 1,250 mcg (50,000 unit) capsule 1,250 mcg PO QWEEK #4 caps 06/21/22 [Rx Last Taken Unknown] fludrocortisone 0.1 mg tablet 0.1 mg PO .COMPLEX #18 tabs 06/21/22 [Rx Last Taken Unknown] Allergy/AdvReac Type Severity Reaction Status Date / Time Sulfa (Sulfonamide Allergy Hives Verified 06/25/22 18:31 Antibiotics) hydrocodone [From [place]] AdvReac Intermediate headache Verified 06/25/22 18:31 acetaminophen [From Vicodin] AdvReac Nausea Verified 06/25/22 18:31 hydrocodone bitartrate AdvReac Nausea Verified 06/25/22 18:31 [From Vicodin] topiramate [From Topamax] AdvReac memory Verified 06/25/22 18:31 loss Family History Father Heart disease CHF (congestive heart failure) Grandmother Diabetes Grandfather Diabetes Surgical History History of ankle surgery History of appendectomy History of bladder surgery History of cholecystectomy History of colectomy History of colonoscopy Presence of coronary angioplasty implant and graft (~01/28/21) Social History household members: spouse housing: house Smoking Status: Current every day smoker tobacco type: cigarettes Smokeless tobacco user: other second hand exposure: No alcohol intake: current alcohol intake frequency: holidays/special occasions only substance use type: does not use caffeine: Yes what type of physical activity do you participate in: none frequency: does not exercise jacob/episcopal: Baptism seatbelt use: sometimes ROS ROS ED Constitutional Constitutional ED: Denies chills or fever(s) Eyes Eyes: Denies change in vision or diplopia ENT ENT ED: Denies rhinorrhea or sore throat Cardiovascular Cardiovascular: Denies chest pain or palpitations Respiratory/Chest Respiratory/Chest: Denies cough or dyspnea Gastrointestinal Gastrointestinal: Denies abdominal pain or constipation Genitourinary Genitourinary ED: Denies dysuria or hematuria Musculoskeletal Musculoskeletal: Denies arthralgias or back pain Integumentary Reports other Details: 2 cm superficial scalp laceration ; Denies abscess Neurologic Neurologic: Reports headache(s); Denies paresthesias or weakness Psychiatric Psychiatric: Denies anxiety or depression EXAM Physical Exam Const Vital Signs: 06/25/22 18:31 Temperature 96.1 F L Temperature Source Temporal Pulse Rate 80 Respiratory Rate 18 Blood Pressure 129/83 H Blood Pressure Mean 98 Pulse Ox 95 Oxygen Delivery Method Room Air Positive well nourished General Appearance ED: NAD HEENT Reports moist mucous membranes Eyes PERRL Resp normal respiratory effort Effort and Inspection: Negative for retractions Cardio regular rate and regular rhythm Neuro oriented x3, CN's II-XII intact bilaterally and no sensory deficits noted Sensorium / Orientation: alert Motor Exam: strength 5/5 throughout Psych mental status grossly normal Skin Skin Narrative: 2 cm well approximated scalp laceration at the vertex. No skull deformity or induration. Bleeding well controlled. MDM MDM MDM Narrative Medical decision making narrative: Patient presenting with his for head injury. He does not have any new or worsening symptoms. He states he has Parkinson's disease and slipped and hit his head on the shower. No LOC. He is not dizzy, lightheaded, nauseous, has no visual complaints. He states that his tetanus is up-to-date. I do not believe the wound needs sutures. We will put a dressing on this. Patient will have CT of the brain to be on aspirin and Plavix. CT brain negative for acute intracranial findings. At this point patient stable for discharge home. Impression: 1. Mechanical fall 2. Superficial scalp laceration 3. Closed head injury Radiography Diagnostic Testing: Clinical Impression(s) from Imaging Studies Brain CT 06/25/22 21:26 IMPRESSION: Negative Brain CT without contrast. Electronically Signed: Jonathan Patel MD at 22:06 EST , Discharge Plan Triage Chief Complaint: Head Injury Other Complaint: Laceration ED Provider: Edgardo Rios Dx/Rx/DC Orders Instructions: ED Head Injury (Adult), ED Laceration Small or ..., ED Fall Prevention Prescriptions: No Action rosuvastatin 40 mg tablet 40 mg PO DAILY Label Comments: Take 1 tablet by mouth daily aspirin [Adult Aspirin Regimen] 81 mg tablet,delayed release (DR/EC) 81 mg PO DAILY tamsulosin [Flomax] 0.4 mg capsule 0.4 mg PO QHS finasteride 5 mg tablet 5 mg PO DAILY cholecalciferol (vitamin D3) 1,250 mcg (50,000 unit) capsule 1,250 mcg PO QWEEK Qty: 4 6RF carbidopa-levodopa [Sinemet] 25-100 mg tablet 2 tab PO .COMPLEX Qty: 150 6RF Rx Instructions: 2 tabs orally twice per day and 1 tablet every midday fludrocortisone 0.1 mg tablet 0.1 mg PO .COMPLEX Qty: 18 6RF Rx Instructions: 0.1 mg PO every Tuesday, Tuesday, Tuesday and Tuesday to be taken in the morning. duloxetine 60 MG capsule 60 mg PO DAILY insulin degludec-liraglutide 3 ML insulin pen 40 unit SQ QHS bupropion HCl 150 MG tablet extended release 24 hr 150 mg PO DAILY buspirone 15 mg tablet 15 mg PO BID Rx Instructions: 7.5 in AM, 1 in PM losartan 50 mg Tablet 50 mg PO DAILY Farxiga 10 mg Tablet 10 mg PO DAILY metformin 500 mg tablet extended release 24 hr 500 mg PO TID Rx Instructions: 2 at Breakfast, 1 at Lunch, 2 at Dinner (DME) Rollaler See Rx Instructions .Route .MEDSUPPLY Qty: 1 0RF Rx Instructions: As directed (DME) Rollator See Rx Instructions .Route .MEDSUPPLY Qty: 1 0RF Rx Instructions: ICD 10: Parkinson's disease (G20), 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
== END 2022-06-25 22:20 | disposition home or self-care (01) ==
PROVIDERS: Emergency Provider Student in an Organized Health Care Education/Training Program; PCP Internal Medicine; Visit Provider Student in an Organized Health Care Education/Training Program
DX: S01.01XA Laceration without foreign body of scalp, initial encounter (principal); G20 Parkinson's disease; E11.22 Type 2 diabetes mellitus with diabetic chronic kidney disease; E11.40 Type 2 diabetes mellitus with diabetic neuropathy, unspecified; N18.4 Chronic kidney disease, stage 4 (severe); I25.10 Atherosclerotic heart disease of native coronary artery without angina pectoris; I12.9 Hypertensive chronic kidney disease with stage 1 through stage 4 chronic kidney disease, or unspecified chronic kidney disease; F17.210 Nicotine dependence, cigarettes, uncomplicated; E78.00 Pure hypercholesterolemia, unspecified; W18.2XXA Fall in (into) shower or empty bathtub, initial encounter; W22.09XA Striking against other stationary object, initial encounter
CPT/HCPCS: 70450; 99283

== ENCOUNTER → 2022-06-30 | Outpatient (CLI) | payer MEDICARE, SELFPAY ==
[2021-04-01 08:35] VITALS: BMI 32.3
[2022-06-30 12:49] LABS: Potassium 4.8 mmol/L (3.5-5.1)
== END | disposition home or self-care (01) ==
LOC: LABSPEC 12:13
PROVIDERS: PCP Internal Medicine; Visit Provider Internal Medicine
DX: E87.5 Hyperkalemia (principal)
CPT/HCPCS: 84132

== ENCOUNTER → 2023-01-27 | Outpatient (CLI) | payer MEDICARE, SELFPAY ==
[2021-04-01 08:35] VITALS: BMI 32.3
[2023-01-27 16:16] LABS: PSA,Total - Annual Screen 0.09 ng/mL (0.00-4.00)
== END | disposition home or self-care (01) ==
LOC: LAB 15:25
PROVIDERS: PCP Internal Medicine; Referring Provider Nurse Practitioner; Visit Provider Nurse Practitioner
DX: Z12.5 Encounter for screening for malignant neoplasm of prostate (principal)
CPT/HCPCS: 36415; 84153; G0103

== ENCOUNTER → 2023-02-07 | Outpatient (CLI) | payer MEDICARE, SELFPAY ==
[2021-04-01 08:35] VITALS: BMI 32.3
--- NOTE | 2023-02-07 14:49 | CT_ITS ---
EXAM: CT ABDOMEN AND PELVIS WITHOUT AND WITH INTRAVENOUS CONTRAST CLINICAL INDICATION: GROSS HEMATURIA/PERSONAL HX OF MALIGNANT NEOPLASM OF BLADDER TECHNIQUE: Helically acquired images were obtained of the abdomen and pelvis without and with intravenous contrast. This CT exam was performed using one or more of the following dose reduction techniques: automated exposure control, adjustment of the mA and/or kV according to patient size, and/or use of iterative reconstruction technique. CONTRAST: IV 100mL Isovue-300 COMPARISON: No relevant prior studies available. FINDINGS: LOWER THORAX: No significant abnormality. Lung bases are clear. No cardiomegaly. No significant pericardial effusion. ABDOMEN: LIVER: No significant abnormality. Homogeneous. No focal mass. GALLBLADDER AND BILE DUCTS: Status post cholecystectomy. No intra- or extrahepatic biliary ductal dilation. PANCREAS: No significant abnormality. No focal cystic or solid mass. SPLEEN: No significant abnormality. Normal size without focal cystic or solid mass. ADRENALS: No significant abnormality. No nodules. KIDNEYS AND URETERS: Nonobstructing left lower pole calyceal stone measuring 2 mm. There are multiple bilateral renal cysts for which no follow-up is indicated. STOMACH AND BOWEL: Postoperative changes of the colon for partial ascending colectomy. Colonic diverticulosis without evidence of acute diverticulitis. No stomach or bowel distention. PELVIS: APPENDIX: See above. BLADDER: No significant abnormality. No focal bladder wall lesion is identified. REPRODUCTIVE: Mild prostatomegaly. ABDOMEN and PELVIS: INTRAPERITONEAL SPACE: No significant abnormality. No ascites or other fluid collection. No free air. BONES/JOINTS: Degenerative changes in the spine. No suspicious lytic or blastic abnormality. SOFT TISSUES: Small fat-containing right inguinal hernia. VASCULATURE: Atherosclerosis of the aorta and its branch vessels. Abdominal aorta is non-dilated. LYMPH NODES: No significant abnormality. No enlarged lymph nodes. TUBES, LINES AND DEVICES: Spinal cord stimulator in place. CT/CT Abd/Pelvis W/WO Contrast IMPRESSION: 1. No focal bladder wall lesion is identified. 2. Nonobstructing left lower pole calyceal stone measuring 2 mm. 3. There are multiple bilateral renal cysts for which no follow-up is indicated. 4. Mild prostatomegaly. 5. Postoperative changes of the colon for partial ascending colectomy. 6. Colonic diverticulosis without evidence of acute diverticulitis. Electronically Signed: Clifton Le DO at 23:22 EDT ,
[2023-02-07 15:32] LABS: CREATININE FINGERSTICK 1.2 mg/dL (0.70-1.30); EGFR FINGERSTICK > 60.0000 mL/min (>60)
== END | disposition home or self-care (01) ==
LOC: CT 14:44
PROVIDERS: PCP Internal Medicine; Referring Provider Urology; Visit Provider Urology
DX: R31.0 Gross hematuria (principal); Z85.51 Personal history of malignant neoplasm of bladder; Z87.442 Personal history of urinary calculi
CPT/HCPCS: 74178; Q9967

== ENCOUNTER → 2023-02-28 | Outpatient (CLI) | payer MEDICARE, SELFPAY ==
[2021-04-01 08:35] VITALS: BMI 32.3
== END | disposition home or self-care (01) ==
LOC: LABSPEC 16:17
PROVIDERS: PCP Internal Medicine; Referring Provider Urology; Visit Provider Urology
DX: R30.0 Dysuria (principal)
CPT/HCPCS: 87077; 87086; 87088; 87186

== ENCOUNTER 2023-04-05 15:15 | Emergency (ER) | payer MEDICARE, SELFPAY ==
[2021-04-01 08:35] VITALS: BMI 32.3
[2023-04-05 15:16] VITALS: BP 132/86; PULSE 84; RESP 16; TEMP 36; O2SAT 97
--- NOTE | 2023-04-05 15:30 | RAD_ITS ---
STUDY: X-RAY - UNILATERAL RIBS ( LEFT ) WITH CHEST REASON FOR EXAM: Male, 77 years old. FALL/LEFT SIDED RIB PAIN TECHNIQUE - RIBS: 4 view(s) of the left ribs. TECHNIQUE - CHEST: Single frontal view of the chest. COMPARISON: July 20, 2021 FINDINGS - RIBS: Normal visualized ribs without a demonstrated fracture. FINDINGS - CHEST: No pneumothorax. The lungs are clear and expanded. There is no demonstrated pleural abnormality. Normal size heart. Normal mediastinum and velasquez. Normal visualized pulmonary arteries. Normal visualized aortic arch and descending thoracic aorta. Normal visualized thoracic spine. Normal visualized ribs, clavicles, and shoulders. There is no demonstrated abnormality of the visualized soft tissue structures of the upper abdomen. RAD/Ribs Uni Min 3V w/PA Chest IMPRESSION: RIBS: Normal x-ray examination of the ribs. CHEST: Normal x-ray examination of the chest. Electronically Signed: Heladio Antonio MD at 16:58 EST ,
[2023-04-05 16:55] VITALS: BMI 29.3
--- NOTE | 2023-04-05 17:16 | CT_ITS ---
INDICATION: traumatic injury -- left ribs EXAMINATION: CT CHEST WITHOUT CONTRAST - CT Chest W/O Contrast Injection TECHNIQUE: Helically acquired images were obtained of the chest. A radiation dose optimization technique was used for this scan. IV Contrast dosage and agent: None. COMPARISON: Chest x-ray July 20, 2021. Chest x-ray from today. FINDINGS: LUNGS, PLEURA AND LARGE AIRWAYS: No masses, consolidation, or edema. No pleural effusion or thickening. No pneumothorax. 5 mm pleural-based nodule apical segment left lower lobe image #37. Pleural reaction on the right. THYROID: Bilateral thyroid nodules measuring up to 13 x 20 mm on the left. HEART AND PERICARDIUM: Calcific coronary artery disease and aortic valve disease. No pericardial effusion. CORONARY ARTERIES: Coronary artery calcification present. VESSELS: Thoracic aorta is not dilated. MEDIASTINUM AND DAWOOD: No mediastinal or hilar adenopathy. Esophagus is unremarkable. No hiatal hernia. UPPER ABDOMEN: No acute pathology. BONES: Nondisplaced fracture the 10th rib posteriorly on the left. CT/Chest without Contrast IMPRESSION: Fracture left 10th rib. Otherwise no acute disease. Incidental findings as noted above. 5 mm nodule left lower lobe. Fleischner Society Guidelines (MacMahon, et al. Radiology 2017; 284(1):228-43) suggest that no follow-up is necessary for patients with a low or high risk of malignancy. Thyroid nodules. Recommend follow-up nonemergent thyroid ultrasound. Electronically Signed: Heladio Antonio MD at 18:02 EST ,
--- NOTE | 2023-04-05 17:20 | EX.ED.GENINJ ---
HPI History of Present Illness Chief Complaint: Fall Informant: patient and spouse/S.O. Narrative Narrative: History of Parkinson's ambulates with a cane, had a mechanical fall 3 days ago into the dresser on his left ribs. No head injuries. He is on aspirin and Plavix. He see pain management he is on Lyrica he was previously on Nucynta. Allergy to hydrocodone. He states tramadol does not help as tolerated Percocet in the past. [facility] Medical History Altered mental status Atherosclerotic heart disease of [place] coronary artery without angina pectoris BPH (benign prostatic hyperplasia) Burn of thigh Burn of thigh, left, second degree CAD (coronary artery disease) Carcinoma in situ of skin, unspecified Cardiomyopathy, ischemic Cellulitis of right anterior lower leg Cellulitis of right lower extremity Chronic sinusitis Depression Diarrhea Fall Fatigue History of bladder cancer History of colon cancer Hypercholesterolemia Hyperlipemia Hypertension Hypertensive chronic kidney disease with stage 1 through stage 4 chronic kidney disease, or unspecified chronic kidney disease Hypoglycemia Insomnia Metabolic syndrome Microalbuminuria Morbid obesity Multiple adenomatous polyps Neuropathy Olecranon bursitis of left elbow Osteoarthritis Other proteinuria Poor balance Poorly controlled diabetes mellitus Presence of stent in coronary artery (~01/28/21) Reflex sympathetic dystrophy of right leg Sepsis Tobacco abuse Tobacco abuse counseling Tremor Type II diabetes mellitus Vitamin D deficiency Wound, open, hip or thigh Home Medications duloxetine 60 mg capsule,delayed release 60 mg PO DAILY 02/03/15 [History Last Taken Unknown] bupropion HCl 150 mg 24 hr tablet, extended release 150 mg PO DAILY 10/04/19 [History Last Taken Unknown] insulin degludec 100 unit-liraglutide 3.6 mg/mL(3 mL) subcutaneous pen 40 unit SQ QHS 10/04/19 [History Last Taken Unknown] rosuvastatin 40 mg tablet 40 mg PO DAILY 10/28/20 [History Last Taken Unknown] dapagliflozin propanediol 10 mg tablet (Farxiga) 10 mg PO DAILY 01/28/21 [History Last Taken Unknown] losartan 50 mg tablet 50 mg PO DAILY 01/28/21 [History Last Taken Unknown] aspirin 81 mg tablet,delayed release (Adult Aspirin Regimen) 81 mg PO DAILY 06/26/21 [History Last Taken Unknown] metformin 500 mg tablet,extended release 24 hr 500 mg PO TID 06/26/21 [History Last Taken Unknown] Rollaler #1 ea 08/24/21 [Rx Last Taken Unknown] Rollator #1 ea 08/24/21 [Rx Last Taken Unknown] finasteride 5 mg tablet 5 mg PO DAILY 10/29/21 [History Last Taken Unknown] tamsulosin 0.4 mg capsule (Flomax) 0.4 mg PO QHS 10/29/21 [History Last Taken Unknown] buspirone 15 mg tablet 15 mg PO BID 02/15/22 [History Last Taken Unknown] metoprolol tartrate 25 mg tablet 25 mg PO BID #60 tabs 05/17/22 [Rx Last Taken Unknown] fludrocortisone 0.1 mg tablet 0.1 mg PO .COMPLEX #24 tabs 12/20/22 [Rx Last Taken Unknown] carbidopa 25 mg-levodopa 100 mg tablet (Sinemet) 2 tab PO .COMPLEX #240 tabs 12/24/22 [Rx Last Taken Unknown] clopidogrel 75 mg tablet See Rx Instructions .Route .COMPLEX #90 tabs 01/24/23 [Rx Last Taken Unknown] cholecalciferol (vitamin D3) 1,250 mcg (50,000 unit) capsule 1,250 mcg PO QWEEK #4 caps 01/26/23 [Rx Last Taken Unknown] docusate sodium 100 mg capsule (DOK) 100 mg PO DAILY #30 CAPSULES 04/05/23 [Rx Last Taken Unknown] oxycodone-acetaminophen 5 mg-325 mg tablet 1 tab PO Q6H PRN PRN Pain 3 days #12 TABLETS 04/05/23 [Rx Last Taken Unknown] Allergy/AdvReac Type Severity Reaction Status Date / Time Sulfa (Sulfonamide Allergy Hives Verified 04/05/23 15:15 Antibiotics) hydrocodone [From [place]] AdvReac Intermediate headache Verified 04/05/23 15:15 acetaminophen [From Vicodin] AdvReac Nausea Verified 04/05/23 15:15 hydrocodone bitartrate AdvReac Nausea Verified 04/05/23 15:15 [From Vicodin] topiramate [From Topamax] AdvReac memory Verified 04/05/23 15:15 loss Family History Father Heart disease CHF (congestive heart failure) Grandmother Diabetes Grandfather Diabetes Surgical History History of ankle surgery History of appendectomy History of bladder surgery History of cholecystectomy History of colectomy History of colonoscopy Presence of coronary angioplasty implant and graft (~01/28/21) Social History household members: spouse housing: house Smoking Status: Current every day smoker tobacco type: cigarettes Smokeless tobacco user: other second hand exposure: No alcohol intake: current alcohol intake frequency: holidays/special occasions only substance use type: does not use caffeine: Yes what type of physical activity do you participate in: none frequency: does not exercise jacob/temple: Orthodox seatbelt use: sometimes ROS ROS ED Constitutional Constitutional ED: Denies chills, fever(s) or sweats Eyes Eyes: Denies change in vision ENT ENT ED: Denies dysphagia or sore throat Cardiovascular Cardiovascular: Reports other Details: Left rib pain ; Denies chest pain, leg edema, palpitations or racing heartbeat Respiratory/Chest Respiratory/Chest: Denies cough, dyspnea or dyspnea on exertion Gastrointestinal Gastrointestinal: Denies abdominal pain, diarrhea, nausea or vomiting Genitourinary Genitourinary ED: Denies dysuria, hematuria or urinary frequency Musculoskeletal Musculoskeletal: Denies back pain, extremity pain or neck pain Integumentary Denies rash or wounds Neurologic Neurologic: Denies headache(s), paresthesias or weakness EXAM Physical Exam Const Vital Signs: 04/05/23 15:16 04/05/23 16:53 04/05/23 18:50 Temperature 96.8 F L Temperature Source Temporal Pulse Rate 84 81 Respiratory Rate 16 14 Respiratory Effort Normal Non-Labored Respiratory Depth Normal Respiratory Pattern Normal Blood Pressure 132/86 H 140/89 H Blood Pressure Mean 101 106 Pulse Ox 97 98 Oxygen Delivery Method Room Air Room Air Room Air Positive well nourished and well developed Constitutional Narrative: GCS 15. General Appearance ED: well developed and NAD HEENT Reports moist mucous membranes normocephalic and atraumatic Eyes PERRL, EOMs intact bilaterally and conjunctivae normal General Eye ED: Yes normal appearance of both eyes Neck no lymphadenopathy and supple General: Negative for tenderness Chest Wall Chest Narrative: Tender palpation left posterior and left anterior ribs there is no crepitus. No ecchymosis. No rash. Chest: tenderness Resp normal respiratory effort and normal air movement Resp Narrative: Symmetric breath sounds Effort and Inspection: symmetric chest movement; Negative for respiratory distress Cardio regular rate, regular rhythm and no murmurs Peripheral Pulses: pulses 2+ throughout GI normal to inspection, nondistended, normoactive bowel sounds and non-tender Palpation: Negative for guarding or rebound tenderness present Back/Spine no CVA tenderness and no thoracic nor lumbar tenderness Extremity normal to inspection General Extremety ED: Negative for edema or tenderness General Extremity: Negative for edema Neuro oriented x3 and no sensory deficits noted Sensorium / Orientation: awake and alert Skin no rashes or lesions noted and no wounds MDM MDM MDM Narrative Medical decision making narrative: Interventions / MDM: Differential diagnosis: Diagnosis considered but do not suspect: No pain left upper quadrant under ribs for concerns for splenic injury. My EKG interpretation: N/A Imaging independently reviewed and interpreted by myself: 4 views left rib with PA chest: No clear fractures. No pneumothorax. CT chest noncontrast: Left posterior nondisplaced 10th rib fracture. No pneumothorax. Also read by radiology. External documents reviewed: N/A Test considered but not ordered:N/A ED course: X-rays ordered through triage, results were negative however clinical exam is pretty tender both posterior and anterior. Will cover with oxycodone in the ED for which she has tolerated well. Will order noncontrast CT chest. CT chest nondisplaced 10th rib fracture posteriorly. No pneumothorax. Incidental left lower lobe pulmonary nodule 5 mm. Incentive spirometer provided. Patient to see pain management with appointment tomorrow. He is not on pain medication for Lyrica. Due to rib fracture will write short prescription for Percocet along with stool softeners for prevention of constipation. He will discuss with his pain doctor tomorrow about his rib fracture. Re-evaluation: stable Disposition discussed with patient/family/significant other: Patient and spouse Case discussed with consulting clinician: N/A This note was generated with [employer] dictation software. It may contain incorrect words, spelling, and punctuation that were not noted in checking the note before signing. Radiography Diagnostic Testing: Clinical Impression(s) from Imaging Studies Ribs w/Chest X-Ray 04/05/23 15:30 IMPRESSION: RIBS: Normal x-ray examination of the ribs. CHEST: Normal x-ray examination of the chest. Electronically Signed: Heladio Antonio MD at 16:58 EST Reading Location ID and State: [facility] / [place] Tel , Service support , Chest CT 04/05/23 17:16 IMPRESSION: Fracture left 10th rib. Otherwise no acute disease. Incidental findings as noted above. 5 mm nodule left lower lobe. Fleischner Society Guidelines (MacMahon, et al. Radiology 2017; 284(1):228-43) suggest that no follow-up is necessary for patients with a low or high risk of malignancy. Thyroid nodules. Recommend follow-up nonemergent thyroid ultrasound. Electronically Signed: Heladio Antonio MD at 18:02 EST , Discharge Plan Triage Chief Complaint: Fall ED Provider: Shekhar Liz Dx/Rx/DC Orders Clinical Impression: Closed rib fracture, Parkinson's disease, Fall, Pulmonary nodule Instructions: ED Rib Fracture Prescriptions: New oxycodone-acetaminophen [oxycodone-acetaminophen] 5-325 mg tablet 1 tab PO Q6H PRN PRN (Reason: Pain) 3 Days Qty: 12 0RF docusate sodium [DOK] 100 mg capsule 100 mg PO DAILY Qty: 30 0RF No Action rosuvastatin 40 mg tablet 40 mg PO DAILY Patient Comments: Take 1 tablet by mouth daily aspirin [Adult Aspirin Regimen] 81 mg tablet,delayed release (DR/EC) 81 mg PO DAILY tamsulosin [Flomax] 0.4 mg capsule 0.4 mg PO QHS finasteride 5 mg tablet 5 mg PO DAILY fludrocortisone 0.1 mg tablet 0.1 mg PO .COMPLEX Qty: 24 6RF Rx Instructions: 0.1 mg PO every Tuesday, Tuesday, Tuesday, Tuesday and Tuesday to be taken in the morning. duloxetine 60 MG capsule 60 mg PO DAILY insulin degludec-liraglutide 3 ML insulin pen 40 unit SQ QHS bupropion HCl 150 MG tablet extended release 24 hr 150 mg PO DAILY buspirone 15 mg tablet 15 mg PO BID Rx Instructions: 7.5 in AM, 1 in PM losartan 50 mg Tablet 50 mg PO DAILY Farxiga 10 mg Tablet 10 mg PO DAILY metformin 500 mg tablet extended release 24 hr 500 mg PO TID Rx Instructions: 2 at Breakfast, 1 at Lunch, 2 at Dinner (DME) Rollaler See Rx Instructions .Route .MEDSUPPLY Qty: 1 0RF Rx Instructions: As directed (DME) Rollator See Rx Instructions .Route .MEDSUPPLY Qty: 1 0RF Rx Instructions: ICD 10: Parkinson's disease (G20), 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 clopidogrel 75 mg tablet See Rx Instructions .ROUTE .COMPLEX Qty: 90 3RF Dose Instruction: TAKE 1 TABLET BY MOUTH DAILY Rx Instructions: TAKE 1 TABLET BY MOUTH DAILY cholecalciferol (vitamin D3) 1,250 mcg (50,000 unit) capsule 1,250 mcg PO QWEEK Qty: 4 3RF Primary Care Provider: Kelly Vargas Referrals: Jha Peterson MD [Med Staff - Active Staff] - 1 Day Kelly Vargas DO [Primary Care Provider] - 1-2 Weeks Activity Restrictions/Additional Instructions: Left posterior 10th rib fracture nondisplaced seen on CT. Use incentive spirometer as prescribed. Pain medications written for pain control. Use stool softener to prevent constipation. Keep your follow-up with Dr. Peterson as scheduled tomorrow and discussed your rib fracture and pain prescription. Disposition Disposition: Home, Self Care Discharge Date/Time: 04/05/23 18:51
[2023-04-05] MEDS: oxyCODONE 5 MG Tablet PO (17:25)
[2023-04-05 18:50] VITALS: BP 140/89; PULSE 81; RESP 14; O2SAT 98
== END 2023-04-05 18:51 | disposition home or self-care (01) ==
PROVIDERS: Emergency Provider Emergency Medicine; PCP Internal Medicine; Visit Provider Emergency Medicine
DX: S22.32XA Fracture of one rib, left side, initial encounter for closed fracture (principal); E11.40 Type 2 diabetes mellitus with diabetic neuropathy, unspecified; E11.22 Type 2 diabetes mellitus with diabetic chronic kidney disease; N18.4 Chronic kidney disease, stage 4 (severe); I12.9 Hypertensive chronic kidney disease with stage 1 through stage 4 chronic kidney disease, or unspecified chronic kidney disease; W01.190A Fall on same level from slipping, tripping and stumbling with subsequent striking against furniture, initial encounter; I25.5 Ischemic cardiomyopathy; R91.1 Solitary pulmonary nodule; G20.A1 Parkinson's disease without dyskinesia, without mention of fluctuations; I25.10 Atherosclerotic heart disease of native coronary artery without angina pectoris; E78.00 Pure hypercholesterolemia, unspecified; F17.210 Nicotine dependence, cigarettes, uncomplicated; Z79.82 Long term (current) use of aspirin; Z79.84 Long term (current) use of oral hypoglycemic drugs; Z79.02 Long term (current) use of antithrombotics/antiplatelets; Z79.899 Other long term (current) drug therapy
CPT/HCPCS: 71101; 71250; 99282

== ENCOUNTER 2023-10-14 09:17 | Day surgery (SDC) | payer MEDICARE, SELFPAY ==
[2021-04-01 08:35] VITALS: BMI 32.3
--- NOTE | 2023-10-11 10:01 | EKG12_ITS ---
Test Reason : PREOP Blood Pressure : / mmHG Vent. Rate : 088 BPM Atrial Rate : 088 BPM P-R Int : 248 ms QRS Dur : 076 ms QT Int : 356 ms P-R-T Axes : -25 -16 087 degrees QTc Int : 430 ms Sinus rhythm with 1st degree A-V block with Premature atrial complexes Inferior infarct , age undetermined Abnormal ECG Confirmed by ENDER CAMP, GARRICK ([id number]), technical writer and editor ANURAG CORBIN ([id number]) on 10/12/2023 9:44:00 AM Referred By: Emmanuel Valverde Confirmed By:GARRICK HANDLEY MD
[2023-10-11 10:58] LABS: Hematocrit 47.7 % (40-54); Hemoglobin 15.4 g/dL (13.0-16.5); Mean Corp Hgb Conc 32.3 g/dL (32-36); Mean Corpuscular Hgb 29.1 pg (27.0-32.0); Mean Corpuscular Volume 90.2 fL (80-94); Mean Platelet Vol. 8.9 fl (6.2-12.0); Platelet Count 293 K/mm3 (150-450); RBC Distribution Width CV 14.1 % (11.6-14.6); RBC Distribution Width SD 46.4 fl (35.1-43.9); Red Blood Count 5.29 M/mm3 (4.6-6.2); White Blood Count 7.5 K/mm3 (4.4-11.0)
[2023-10-11 11:21] LABS: Anion Gap 8 (5-15); BUN 19 mg/dL (7-18); BUN/Creat Ratio 12.7 RATIO (10-20); Chloride 109 mmol/L (98-107); EST Glomerular Filtration Rate 48 mL/min (>60); Est Glom Filt Rate - Afr Amer 58 mL/min (>60); Glucose 246 mg/dL (74-106); Potassium 4.4 mmol/L (3.5-5.1); Sodium Level 142 mmol/L (136-145)
[2023-10-11 13:13] LABS: Hemoglobin A1c 7.1 % (3.8-5.6)
[2023-10-14] VITALS (13 sets, daily range): BP systolic 116–158; BP diastolic 79–90; PULSE 72–92; RESP 16–18; TEMP 36.2–36.9; O2SAT 93–97; BMI 27.6
--- NOTE | 2023-10-14 | PROS_PTH ---
PATIENT: DAFNE OBANDO LOC: [facility] U#:[id number] AGE/SX: 78/M ROOM: RE10/14/[address]: Dr. Emmanuel Valverde MD : 1945 BED: DIS: 10/15/2023 SPEC #: [id number] RECD: 10/14/23 14:07 STATUS: LEX RECourtney #: [id number] EDVIN: 10/14/23 00:[address]: Emmanuel Valverde DEPT: SURGICAL PATHOLOGY RECD BY: Mario Monae ENTERED: 10/17/23 09:11 SP TYPE: TURP OTHR DR: MD Dr. Kelly Antunez DO Tissues: Prostate, NOS Procedures: Surgery Specimen Level IV HEADER OPERATION: Cysto- transurethral resection prostate with Olympus PRE-OP DIAGNOSIS: BPH with obstruction TISSUE SUBMITTED: Prostate pieces MICROSCOPIC DIAGNOSIS Prostate tissue, transurethral resection: Benign prostatic hyperplasia, glandular and stromal type. Acute and chronic inflammation and basal cell hyperplasia. JM/ 10/18/2023 MICROSCOPIC DESCRIPTION Slides are reviewed. GROSS DESCRIPTION Received is one container labeled with the patient's name and designated prostate tissue. The specimen consists of multiple irregular fragments of pink-matthews, rubbery, soft tissue that in aggregate weigh 7.5 gm and measure in aggregate 4.0 x 3.5 x 2.0 cm. The entire specimen is submitted in eight cassettes. JM/ 10/17/2023TC:5 CPT: 34202
--- NOTE | 2023-10-14 09:54 | PCM.PRE.AN2 ---
ASA Classification* ASA Classification ASA Classification: 3 Assessment & Plan Anesthesia* Anesthesia Assessment Anesthesia Assessment: Discussed sedation and/or anesthesia options, risks, benefits, and alternatives with patient/parents/legal guardian/POA. Questions invited. The patient/parents/legal guardian/POA seems to understand and agrees to proceed with anesthesia plan. Reviewed the physical assessment, medical history, allergy history and patient home medications list prior to surgery/procedure/anesthetic and documented any changes. Performed airway and anesthesia risk assessments. Anesthesia Type Anesthesia Type: General Pre-Assessment Diagnosis/Proposed Procedure Planned Operative Procedure(s): TURP WITH OLYMPUS Anesthesia History Anesthesia History - digital watch assembler: Anesthesia History - digital watch assembler Hx Hospitalization No 10/04/23 09:09 Any Problems With Anesthesia No 10/04/23 09:09 Cholinesterase deficiency You/Your Family Experience No 10/04/23 09:09 fever (hyperthermia) with Relationship Recent Exposure to Contagious No 11/13/13 22:07 Disease Does patient have nerve Yes: BACK RIGHT HIP, PT DOES 10/04/23 09:09 stimulator NOT USE Patient instructed to have device shut off --Does patient have Pacemaker or ICD? When Was Last Pacemaker Check QUESTION #4 FULL TEXT: You/Your Family Experience fever (hyperthermia) with Anesthesia Last Oral Intake Last Oral intake: Last Oral Intake NPO since Meds taken in AM with sips of water? Meds patient instructed to take am of surgery PONV PONV - digital watch assembler: PONV - digital watch assembler Female No 10/04/23 09:09 HX of Motion Sickness No 10/04/23 09:09 HX of N/V After Surgery No 10/04/23 09:09 Non-Smoker No 10/04/23 09:09 Duration of Surgery greater Yes 10/04/23 09:09 than 60 minutes Number of Risk Factors 1 10/04/23 09:09 PONV Score Low Risk 10/04/23 09:09 Height & Weight Height & Weight: Anesthesia: Height & Weight Height 5 ft 8 in 10/13/23 07:04 Weight: 78.471 kg 10/13/23 07:04 Respiratory Assessment Respiratory Assessment - digital watch assembler: Respiratory Tract Infection Hx - digital watch assembler Hx Respiratory Tract Infection No 11/13/13 22:07 STOP Sleep Apnea STOP Sleep Apnea - digital watch assembler: STOP Sleep Apnea - digital watch assembler Hx Hypertension Yes: CONTROLLED WITH MED 10/04/23 09:09 Hx Sleep Apnea Yes: PT HAD SLEEP STUDY, 10/04/23 09:09 INCONCLUSIVE CPAP No 10/04/23 09:09 BIPAP No 10/04/23 09:09 Do you snore loudly (louder than talking or can be heard Do you often feel tired/ fatigued/ sleepy during daytime? Has anyone observed you stop breathing during sleep? STOP Results Positive 10/04/23 09:09 QUESTION #5 FULL TEXT : Do you snore loudly (louder than talking or can be heard through closed doors)? Tobacco Use History Tobacco Use History - digital watch assembler: Tobacco Use History - digital watch assembler Tobacco Use Smoking Status Current every day smoker 10/04/23 09:09 Hx Tobacco Use Yes 10/04/23 09:09 Years Smoking 60 10/04/23 09:09 Packs Smoked per Day Smoking Cessation Date was within the last 15 years Hx Smoking Cessation Date Hx Smoking Cessation Counseling Hematologic Medial History Hematologic Hx - digital watch assembler: Hematologic Medical Hx - documentation specialist Hx of Blood Transfusion No 10/04/23 09:09 Hx of Transfusion in last 3 No 10/04/23 09:09 Months Date of Last Transfusion (if within last 3 months) Ever experience any problems No 10/04/23 09:09 with transfusion(s)? Specify any problems Hx of Preganancy in last 3 N/A 10/04/23 09:09 Months Nurse Filling Out Transfusion NBUCHER 10/04/23 09:09 & Questions: Date: 10/04/23 10/04/23 09:09 Time: 09:11 10/04/23 09:09 Patient unable to answer at this time (ie. confused, unrespo /Reproduction History /Reproductive History - digital watch assembler: /Reproductive Hx- digital watch assembler Hx Now Gestational Age (in weeks): EDC: Hx Hx Para Hx Section SAB No 04/05/23 15:16 Active Medications Active Medications: Current Medications Generic Name Dose Route Start Last Admin Trade Name Freq PRN Reason Stop Dose Admin Cefazolin Sodium 2 gm/ Sodium 110 mls @ 150 mls/hr 10/14/23 11:40 Chloride IV 10/14/23 12:23 PREOP ONE Lactated Ringer's 1,000 mls @ 15 mls/hr 10/14/23 09:45 IV .Q48H [facility] Anesthesia Focused Assessment* Airway Assessment Mouth opens: >3 cm Mallampati Score: II Focused Labs Anesthesia Preop lab: CBC WBC 7.5 K/mm3 (4.4-11.0) 10/11/23 10:13 RBC 5.29 M/mm3 (4.6-6.2) 10/11/23 10:13 Hgb 15.4 g/dL (13.0-16.5) 10/11/23 10:13 Hct 47.7 % (40-54) 10/11/23 10:13 Plt Count 293 K/mm3 (150-450) 10/11/23 10:13 CHEMISTRY Potassium 4.4 mmol/L (3.5-5.1) 10/11/23 10:13 Sodium 142 mmol/L (136-145) 10/11/23 10:13 Magnesium 2.1 mg/dL (1.6-2.6) 01/14/22 11:54 Phosphorus 2.6 mg/dL (2.5-4.9) 01/28/21 04:30 BUN 19 mg/dL (7-18) H 10/11/23 10:13 Creatinine 1.50 mg/dL (0.70-1.30) H 10/11/23 10:13 Glucose 246 mg/dL (74-106) H 10/11/23 10:13 POC Glucose 212 mg/dL (74-106) H 07/20/21 03:41 TSH 1.96 uIU/mL (0.358-3.74) 08/05/21 09:50 COAG PT 13.0 SECONDS (11.7-14.9) 01/28/21 03:18 Review of Systems (Anesthesia) ROS Narrative System reviewed and no additional complaints, except as documented. [facility] Medical History History of echocardiogram Wears hearing aid Loss of hearing Wears glasses Anxiety History of steroid therapy Cancer Bladder disease Prostate disease High cholesterol Dietary restriction History of IBS Shortness of breath on exertion Smoker Cardiology follow-up encounter History of irregular heartbeat History of heart attack Fall Carcinoma in situ of skin, unspecified Poorly controlled diabetes mellitus Hypoglycemia Vitamin D deficiency Morbid obesity Hypercholesterolemia Metabolic syndrome Insomnia Neuropathy Hypertensive chronic kidney disease with stage 1 through stage 4 chronic kidney disease, or unspecified chronic kidney disease CAD (coronary artery disease) Chronic sinusitis Osteoarthritis Olecranon bursitis of left elbow Tremor Poor balance Altered mental status Other proteinuria Microalbuminuria Cardiomyopathy, ischemic Presence of stent in coronary artery (~01/28/21) Atherosclerotic heart disease of [place] coronary artery without angina pectoris Depression Fatigue Diarrhea History of colon cancer Multiple adenomatous polyps History of bladder cancer Tobacco abuse counseling Tobacco abuse Burn of thigh Wound, open, hip or thigh Burn of thigh, left, second degree Cellulitis of right anterior lower leg Cellulitis of right lower extremity Reflex sympathetic dystrophy of right leg Sepsis BPH (benign prostatic hyperplasia) Hyperlipemia Type II diabetes mellitus Hypertension Home Medications ?Medication ?Instructions ?Recorded ?Last Taken ?Type duloxetine 60 mg capsule,delayed 60 mg PO DAILY 02/03/15 Unknown History release bupropion HCl 150 mg 24 hr tablet, 150 mg PO DAILY 10/04/19 10/14/23 06:00 History extended release insulin degludec 100 40 unit SQ QHS 10/04/19 10/13/23 History unit-liraglutide 3.6 mg/mL(3 mL) subcutaneous pen rosuvastatin 40 mg tablet 40 mg PO DAILY 10/28/20 Unknown History dapagliflozin propanediol 10 mg 10 mg PO DAILY 01/28/21 Unknown History tablet (Farxiga) losartan 50 mg tablet 50 mg PO QHS 01/28/21 10/13/23 History aspirin 81 mg tablet,delayed 81 mg PO DAILY 06/26/21 10/01/23 History release (Adult Aspirin Regimen) metformin 500 mg tablet,extended 500 - 1,000 mg PO TID 06/26/21 Unknown History release 24 hr Rollaler #1 ea 08/24/21 Unknown Rx Rollator #1 ea 08/24/21 Unknown Rx finasteride 5 mg tablet 5 mg PO DAILY 10/29/21 10/14/23 06:00 History tamsulosin 0.4 mg capsule (Flomax) 0.4 mg PO QHS 10/29/21 10/13/23 History buspirone 15 mg tablet 15 - 30 mg PO BID 02/15/22 10/14/23 06:00 History clopidogrel 75 mg tablet See Rx Instructions .Route 01/24/23 10/02/23 Rx .COMPLEX #90 tabs metoprolol tartrate 25 mg tablet 25 mg PO BID #60 tabs 05/24/23 10/14/23 06:00 Rx carbidopa 25 mg-levodopa 100 mg 2 tab PO .qid #240 tabs 09/13/23 10/14/23 06:00 Rx tablet (Sinemet) cholecalciferol (vitamin D3) 1,250 1,250 mcg PO QWEEK #4 caps 09/13/23 Unknown Rx mcg (50,000 unit) capsule fludrocortisone 0.1 mg tablet 0.1 mg PO MOTUWETHFR 10/04/23 10/14/23 06:00 History Allergy/AdvReac Type Severity Reaction Status Date / Time Sulfa (Sulfonamide Allergy Hives Verified 09/13/23 11:32 Antibiotics) hydrocodone (From [place]) AdvReac Intermediate headache Verified 09/13/23 11:32 hydrocodone bitartrate (From AdvReac Nausea Verified 09/13/23 11:32 Vicodin) topiramate (From Topamax) AdvReac memory Verified 09/13/23 11:32 loss Family History Father Heart disease CHF (congestive heart failure) Grandmother Diabetes Grandfather Diabetes Surgical History History of coronary artery stent placement History of cardiac catheterization Presence of coronary angioplasty implant and graft (~01/28/21) History of colonoscopy History of bladder surgery History of appendectomy History of cholecystectomy History of colectomy History of ankle surgery Social History household members: spouse housing: house Smoking Status: Current every day smoker tobacco type: pipe Smokeless tobacco user: other second hand exposure: No alcohol intake: current alcohol intake frequency: holidays/special occasions only substance use type: does not use caffeine: Yes what type of physical activity do you participate in: none frequency: does not exercise jacob/sabianism: Congregational seatbelt use: sometimes
[2023-10-14] MEDS: Lactated Ringers 1,000 ML 15 ML IV (10:22)
--- NOTE | 2023-10-14 11:06 | HP.PCM_ITS ---
HPI - General General Date of Service: 10/14/23 Chief Complaint: BPH with obstruction HPI Narrative DAFNE OBANDO, is a 78 M who presents for a transurethral resection of the prostate for large prostate with obstruction [facility] Medical History History of echocardiogram Wears hearing aid Loss of hearing Wears glasses Anxiety History of steroid therapy Cancer Bladder disease Prostate disease High cholesterol Dietary restriction History of IBS Shortness of breath on exertion Smoker Cardiology follow-up encounter History of irregular heartbeat History of heart attack Fall Carcinoma in situ of skin, unspecified Poorly controlled diabetes mellitus Hypoglycemia Vitamin D deficiency Morbid obesity Hypercholesterolemia Metabolic syndrome Insomnia Neuropathy Hypertensive chronic kidney disease with stage 1 through stage 4 chronic kidney disease, or unspecified chronic kidney disease CAD (coronary artery disease) Chronic sinusitis Osteoarthritis Olecranon bursitis of left elbow Tremor Poor balance Altered mental status Other proteinuria Microalbuminuria Cardiomyopathy, ischemic Presence of stent in coronary artery (~01/28/21) Atherosclerotic heart disease of [place] coronary artery without angina pectoris Depression Fatigue Diarrhea History of colon cancer Multiple adenomatous polyps History of bladder cancer Tobacco abuse counseling Tobacco abuse Burn of thigh Wound, open, hip or thigh Burn of thigh, left, second degree Cellulitis of right anterior lower leg Cellulitis of right lower extremity Reflex sympathetic dystrophy of right leg Sepsis BPH (benign prostatic hyperplasia) Hyperlipemia Type II diabetes mellitus Hypertension Home Medications ?Medication ?Instructions ?Recorded ?Last Taken ?Type duloxetine 60 mg capsule,delayed 60 mg PO DAILY 02/03/15 Unknown History release bupropion HCl 150 mg 24 hr tablet, 150 mg PO DAILY 10/04/19 10/14/23 06:00 History extended release insulin degludec 100 40 unit SQ QHS 10/04/19 10/13/23 History unit-liraglutide 3.6 mg/mL(3 mL) subcutaneous pen rosuvastatin 40 mg tablet 40 mg PO DAILY 10/28/20 Unknown History dapagliflozin propanediol 10 mg 10 mg PO DAILY 01/28/21 Unknown History tablet (Farxiga) losartan 50 mg tablet 50 mg PO QHS 01/28/21 10/13/23 History aspirin 81 mg tablet,delayed 81 mg PO DAILY 06/26/21 10/01/23 History release (Adult Aspirin Regimen) metformin 500 mg tablet,extended 500 - 1,000 mg PO TID 03/04/22 Unknown History release 24 hr Rollaler #1 ea 08/24/21 Unknown Rx Rollator #1 ea 08/24/21 Unknown Rx finasteride 5 mg tablet 5 mg PO DAILY 10/29/21 10/14/23 06:00 History tamsulosin 0.4 mg capsule (Flomax) 0.4 mg PO QHS 10/29/21 10/13/23 History buspirone 15 mg tablet 15 - 30 mg PO BID 02/15/22 10/14/23 06:00 History clopidogrel 75 mg tablet See Rx Instructions .Route 01/24/23 10/02/23 Rx .COMPLEX #90 tabs metoprolol tartrate 25 mg tablet 25 mg PO BID #60 tabs 05/24/23 10/14/23 06:00 Rx carbidopa 25 mg-levodopa 100 mg 2 tab PO .qid #240 tabs 09/13/23 10/14/23 06:00 Rx tablet (Sinemet) cholecalciferol (vitamin D3) 1,250 1,250 mcg PO QWEEK #4 caps 09/13/23 Unknown Rx mcg (50,000 unit) capsule fludrocortisone 0.1 mg tablet 0.1 mg PO MOTUWETHFR 10/04/23 10/14/23 06:00 History Allergy/AdvReac Type Severity Reaction Status Date / Time Sulfa (Sulfonamide Allergy Hives Verified 09/13/23 11:32 Antibiotics) hydrocodone (From [place]) AdvReac Intermediate headache Verified 09/13/23 11:32 hydrocodone bitartrate (From AdvReac Nausea Verified 09/13/23 11:32 Vicodin) topiramate (From Topamax) AdvReac memory Verified 09/13/23 11:32 loss Family History Father Heart disease CHF (congestive heart failure) Grandmother Diabetes Grandfather Diabetes Surgical History History of coronary artery stent placement History of cardiac catheterization Presence of coronary angioplasty implant and graft (~01/28/21) History of colonoscopy History of bladder surgery History of appendectomy History of cholecystectomy History of colectomy History of ankle surgery Social History household members: spouse housing: house Smoking Status: Current every day smoker tobacco type: pipe Smokeless tobacco user: other second hand exposure: No alcohol intake: current alcohol intake frequency: holidays/special occasions only substance use type: does not use caffeine: Yes what type of physical activity do you participate in: none frequency: does not exercise jacob/lutheran: Anabaptism seatbelt use: sometimes Vital Signs Vital Signs Vital Signs: 10/14/23 09:55 10/14/23 09:55 Temperature 98.4 F Temperature Source Temporal Pulse Rate 85 Respiratory Rate 16 Respiratory Pattern Normal Blood Pressure 135/88 H Blood Pressure Mean 103 Blood Pressure Source Monitor Blood Pressure Position Semi-Fowlers Blood Pressure Location Left Arm Pulse Ox 94 Oxygen Delivery Method Room Air Weight Weight: 82.6 kg Body Mass Index (BMI) 27.6 Results Lab / Micro Data 10/11/23 10:13 10/11/23 10:13
[2023-10-14 11:11] LABS: Bedside Glucose 120 mg/dL (74-106)
[2023-10-14] MEDS: Cefazolin 2 GM in 0.9% Normal Saline (100mL Bag) 100 ML IV (11:26)
--- NOTE | 2023-10-14 12:24 | PCM.OPRPT ---
Report of Operation Date of Procedure: 10/14/23 Pre-Operative Diagnosis: BPH with obstruction Post-Operative Diagnosis: The same Surgery/Procedure Performed:: Transurethral section of prostate Description of Surgical Findings:: patient was taken back to the operating room at this with induction of anesthesia he was placed supine on the table the penis and testicles were prepped and draped in usual sterile fashion went into the bladder with a 21 English rigid cystourethroscope upon inspection of the prostate had a large obstructive prostate a lot of tissue coming from the top and the roof of the prostate verumontanum was identified the sphincter was identified the bladder was stretched out left and right ureters were identified I then switched over to the median resectoscope loop using the bipolar Olympus noncontinuous flow loop I then proceeded with resection of the prostate resected the right lobe of the prostate left lobe prostate and resected a lot of the anterior tissue that is causing blockage I then did a flow test he had adequate flow cauterized resection placed a Rosa catheter in the bladder on continuous irrigation and the patient anesthetic was taken back to the PACU in good condition. Surgeon: Emmanuel Valverde Type of Anesthesia: General Drains: 22fr 3 way Estimated Blood Loss (mL): 5 Admit VTE Documentation VTE Present on Admission: No VTE Mechan Device Prophylaxis: SCD's VTE Pharm Prophylaxis ordered?: No
--- NOTE | 2023-10-14 12:26 | DCINST_ITS ---
Discharge Instructions Diet Discharge Diet: No restrictions Activity Discharge Activity: Return to Normal Activity and May Not Drive (while taking narcotic pain medications.) Dressing / Incision Call your doctor if you observe: Fever of 101 or Higher Follow Up Care Please Follow Up With: Emmanuel Valverde MD When: Call [phone] for an appointment Test Results: Test results from this visit will be discussed in further detail at your follow- up appointment, if applicable. Discharge Plan Admission Primary Reason for Your Visit: resection of prostate Attending Provider: Emmanuel Valverde Primary Care Provider: Kelly Vargas Consulting Providers: Raheel Lau Instructions Patient Instructions: TURP Home Recovery Print Language: [place]ican Discharge Orders/Prescriptions Prescriptions: New ciprofloxacin HCl [Cipro] 500 mg tablet 500 mg PO BID Qty: 14 0RF Continued rosuvastatin 40 mg tablet 40 mg PO DAILY Patient Comments: Take 1 tablet by mouth daily tamsulosin [Flomax] 0.4 mg capsule 0.4 mg PO QHS finasteride 5 mg tablet 5 mg PO DAILY cholecalciferol (vitamin D3) 1,250 mcg (50,000 unit) capsule 1,250 mcg PO QWEEK Qty: 4 6RF carbidopa-levodopa [Sinemet] 25-100 mg tablet 2 tab PO .qid Qty: 240 6RF duloxetine 60 MG capsule 60 mg PO DAILY insulin degludec-liraglutide 3 ML insulin pen 40 unit SQ QHS bupropion HCl 150 MG tablet extended release 24 hr 150 mg PO DAILY buspirone 15 mg tablet 15 - 30 mg PO BID Rx Instructions: 1 TAB AM, 2 TABS QHS losartan 50 mg Tablet 50 mg PO QHS dapagliflozin propanediol [Farxiga] 10 mg Tablet 10 mg PO DAILY metformin 500 mg tablet extended release 24 hr 500 - 1,000 mg PO TID Rx Instructions: 2 at Breakfast, 1 at Lunch, 2 at Dinner fludrocortisone 0.1 mg tablet 0.1 mg PO MOTUWETHFR metoprolol tartrate 25 mg tablet 25 mg PO BID Qty: 60 11RF Held aspirin [Adult Aspirin Regimen] 81 mg tablet,delayed release (DR/EC) 81 mg PO DAILY Hold Instructions: Resume on 10/28/23. (DME) Rollaler See Rx Instructions .Route .MEDSUPPLY Qty: 1 0RF Hold Instructions: Resume on 10/21/23. Rx Instructions: As directed (DME) Rollator See Rx Instructions .Route .MEDSUPPLY Qty: 1 0RF Hold Instructions: Resume on 10/21/23. 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 Dose Instruction: TAKE 1 TABLET BY MOUTH DAILY Rx Instructions: TAKE 1 TABLET BY MOUTH DAILY Other Ambulatory Orders: 12 Lead EKG (Routine) Timeframe: 20231011 Location: None Selected Ordered By: Dr. Raheel Lau Referrals / Follow Up: Kelly Vargas DO [Primary Care Provider] - Disposition Disposition (needs filled in before D/C Order can be placed): Home, Self Care
--- NOTE | 2023-10-14 12:31 | PCM.POST.ANE ---
Anesthesia: Postop Eval I Current Vital Signs Temperature: 97.7 F Pulse Rate: 83 Blood Pressure: 116/82 Respiratory Rate: 16 Pulse Ox: 97 Oxygen Delivery Method: Simple Mask Oxygen Flow Rate (L/min): 4 Assessment Airway patent: Yes Spontaneous unlabored respirations: Yes Mental status: Awake and Calm nausea: No Vomiting: No Anesthesia Complication: No Fluid Hydration Crystalloid volume administer (ml): 1,300 Total IV fluid infused: 1,300 Progress Note Anesthesia document: Postop Eval 1 completed: Yes
[2023-10-14] MEDS: 0.9% Normal Saline (1000mL) 1,000 ML 125 ML IV ×2 (15:00→22:14)
--- NOTE | 2023-10-14 15:26 | POSTOPAN2_ITS ---
Anesthesia Postop Eval I Sum Postop Eval Completion status Anesthesia document: Postop Eval 1 completed: Yes Anesthesia Postop Eval I Summary Anesthesia Postop Eval I Summary: Anesthesia Postop Eval I: Assessment Summary Airway patent Yes 10/14/23 12:32 [employer].MDOT Spontaneous unlabored Yes 10/14/23 12:32 [employer].MDOT respirations Mental status Awake,Calm 10/14/23 12:32 [employer].MDOT nausea No 10/14/23 12:32 [employer].MDOT Vomiting No 10/14/23 12:32 SU[employer].MDOT Anesthesia Postop Eval I: Fluid Summary Crystalloid volume administer 1,300 10/14/23 12:32 SU[employer].MDOT (ml) Colloids volume administered ( ml) Blood Product volume administered (ml) Total IV fluid infused 1,300 10/14/23 12:32 SU[employer].MDOT Anesthesia Postop Eval I: Summary Notes Anesthesia Complication No 10/14/23 12:32 [employer].MDOT Anesthesia Complication Comment: Post-operative progress note Anesthesia: Postop Eval II Evaluation Mental status: Awake and Calm Pain Level: 0 nausea: No Vomiting: No Complications Anesthesia Complication: No
--- NOTE | 2023-10-14 15:26 | PCM.POSTANE2 ---
Anesthesia Postop Eval I Sum Postop Eval Completion status Anesthesia document: Postop Eval 1 completed: Yes Anesthesia Postop Eval I Summary Anesthesia Postop Eval I Summary: Anesthesia Postop Eval I: Assessment Summary Airway patent Yes 10/14/23 12:32 BINDER [email or web address] Spontaneous unlabored Yes 10/14/23 12:32 BINDER [email or web address].MDOT respirations Mental status Awake,Calm 10/14/23 12:32 BINDER [email or web address].MDOT nausea No 10/14/23 12:32 BINDER [email or web address].MDOT Vomiting No 10/14/23 12:32 BINDER [email or web address].MDOT Anesthesia Postop Eval I: Fluid Summary Crystalloid volume administer 1,300 10/14/23 12:32 BINDER [email or web address].MDOT (ml) Colloids volume administered ( ml) Blood Product volume administered (ml) Total IV fluid infused 1,300 10/14/23 12:32 BINDER [email or web address].MDOT Anesthesia Postop Eval I: Summary Notes Anesthesia Complication No 10/14/23 12:32 BINDER [email or web address].MDOT Anesthesia Complication Comment: Post-operative progress note Anesthesia: Postop Eval II Evaluation Mental status: Awake and Calm Pain Level: 0 nausea: No Vomiting: No Complications Anesthesia Complication: No
[2023-10-14] MEDS: Carbidopa/Levodopa 25/100 Tablet PO ×2 (15:54→21:21)
[2023-10-14] MEDS: metFORMIN (XR) 500 MG Tablet 1000 MG PO (15:54)
[2023-10-14] MEDS: Ciprofloxacin 400 MG/200 ML BAG 200 MG IV (20:24)
[2023-10-14] MEDS: Tamsulosin HCl 0.4 MG Capsule PO (21:19)
[2023-10-14] MEDS: Losartan Potassium 50 MG Tablet PO (21:19)
[2023-10-14] MEDS: Metoprolol Tartrate 25 MG Tablet PO (21:20)
[2023-10-14] MEDS: Docusate Sodium 100 MG Capsule 200 MG PO (21:20)
[2023-10-14] MEDS: busPIRone 15 MG TABLET 30 MG PO (21:20)
[2023-10-14] MEDS: Atorvastatin Calcium 80 MG Tablet PO (21:20)
[2023-10-14] MEDS: INSULIN DEGLUDEC SC (22:09)
[2023-10-14] MEDS: [UNRECOGNIZED DRUG - OTHER] SC (22:09)
[2023-10-14 22:12] LABS: Bedside Glucose 293 mg/dL (74-106)
[2023-10-15 05:00] VITALS: BP 143/87; PULSE 75; RESP 18; TEMP 36.8; O2SAT 98
[2023-10-15] MEDS: 0.9% Normal Saline (1000mL) 1,000 ML 125 ML IV (05:03)
[2023-10-15] MEDS: Carbidopa/Levodopa 25/100 Tablet PO ×2 (06:45→11:06)
[2023-10-15 07:22] LABS: Bedside Glucose 130 mg/dL (74-106)
--- NOTE | 2023-10-15 07:35 | PCM.PN.GU ---
Subjective Subjective s/p TURP d/c suresh home after voids Objective Data Objective Data Vital Signs: Vital Signs Temp Pulse Resp BP Pulse Ox O2 Del Method O2 Flow Rate 98.3 F 75 18 143/87 H 98 Room Air 4 10/15/23 05:00 10/15/23 05:00 10/15/23 05:00 10/15/23 05:00 10/15/23 05:00 10/15/23 05:00 10/14/23 12:32 Oxygen Flow Rate (L/min) 4 Oxygen Delivery Method Room Air Weight: 82.6 kg Body Mass Index (BMI) 27.6 Intake & Output: Intake and Output for Last 24 Hours 10/13/23 10/14/23 10/15/23 23:59 23:59 23:59 Intake Total 2717.00 / 2717.00 852.08 / 852.08 Output Total 7700 / 7700 Balance -4983.00 / -4983.00 852.08 / 852.08 Lab / Micro Data 10/11/23 10:13 10/11/23 10:13 Labs: Laboratory Results - last 24 hr 10/14/23 10:14: POC Glucose 120 H 10/14/23 21:23: POC Glucose 293 H 10/15/23 05:05: POC Glucose 130 H
[2023-10-15] MEDS: metFORMIN (XR) 500 MG Tablet 1000 MG PO (08:52)
[2023-10-15] MEDS: Ciprofloxacin 400 MG/200 ML BAG 200 MG IV (08:52)
[2023-10-15] MEDS: Docusate Sodium 100 MG Capsule 200 MG PO (08:56)
[2023-10-15] MEDS: busPIRone 15 MG TABLET PO (08:56)
[2023-10-15] MEDS: DULoxetine Hcl 60 MG Capsule PO (08:56)
[2023-10-15] MEDS: Empagliflozin 25 MG Tablet PO (08:57)
[2023-10-15] MEDS: Finasteride 5 MG Tablet PO (08:57)
[2023-10-15] MEDS: buPROPion (XL) 150 MG TABLET.XL PO (09:01)
[2023-10-15 09:02] VITALS: PULSE 79
[2023-10-15] MEDS: Metoprolol Tartrate 25 MG Tablet PO (09:02)
[2023-10-15] MEDS: metFORMIN (XR) 500 MG Tablet PO (11:07)
[2023-10-15 14:03] VITALS: BP 134/78; PULSE 65; RESP 18; TEMP 37.2; O2SAT 97
== END 2023-10-15 14:19 | disposition home or self-care (01) ==
LOC: SDC 09:20 → AC 09:21 → MS3 12:59
PROVIDERS: Anesthesiology; PCP Internal Medicine; Referring Provider Urology; Visit Provider Urology
PROC: 0VT08ZZ Resection of Prostate, Via Natural or Artificial Opening Endoscopic (ICD-10-PCS; CPT 52601; principal; 2023-10-14 11:30)
DX: N40.1 Benign prostatic hyperplasia with lower urinary tract symptoms (principal); G20.C Parkinsonism, unspecified; N18.4 Chronic kidney disease, stage 4 (severe); E11.22 Type 2 diabetes mellitus with diabetic chronic kidney disease; E11.40 Type 2 diabetes mellitus with diabetic neuropathy, unspecified; Z79.4 Long term (current) use of insulin; E78.00 Pure hypercholesterolemia, unspecified; I25.10 Atherosclerotic heart disease of native coronary artery without angina pectoris; F17.290 Nicotine dependence, other tobacco product, uncomplicated; I25.5 Ischemic cardiomyopathy; F32.9 Major depressive disorder, single episode, unspecified; I12.9 Hypertensive chronic kidney disease with stage 1 through stage 4 chronic kidney disease, or unspecified chronic kidney disease; I25.2 Old myocardial infarction; E55.9 Vitamin D deficiency, unspecified; F41.9 Anxiety disorder, unspecified; Z79.82 Long term (current) use of aspirin; Z79.899 Other long term (current) drug therapy; Z79.01 Long term (current) use of anticoagulants; Z79.84 Long term (current) use of oral hypoglycemic drugs; Z95.5 Presence of coronary angioplasty implant and graft
CPT/HCPCS: 52601; 36415; 80048; 82962; 83036; 85027; 88305; 93005; 94668; J7030; J7120; J0744; J2405

== ENCOUNTER 2023-10-17 18:47 | Inpatient (IN) | payer MEDICARE, SELFPAY ==
[2021-04-01 08:35] VITALS: BMI 32.3
[2023-10-17] VITALS (13 sets, daily range): BP systolic 105–177; BP diastolic 68–102; PULSE 105–137; RESP 18–39; TEMP 36.5–37.7; O2SAT 89–94; BMI 29.0; BMI 26.7
--- NOTE | 2023-10-17 19:02 | EKG12_ITS ---
Test Reason : UNRESPONSIVE Blood Pressure : / mmHG Vent. Rate : 130 BPM Atrial Rate : 000 BPM P-R Int : 000 ms QRS Dur : 074 ms QT Int : 366 ms P-R-T Axes : 000 -04 073 degrees QTc Int : 538 ms Atrial fibrillation with rapid ventricular response Nonspecific ST and T wave abnormality Abnormal ECG Confirmed by Ralph Conti ([id number]), general expeditor ANURAG CORBIN ([id number]) on 10/19/2023 11:33:02 AM Referred By: ELIAZAR Confirmed By:Ralph Conti
--- NOTE | 2023-10-17 19:02 | CT_ITS ---
EXAM: CT HEAD WITHOUT INTRAVENOUS CONTRAST CLINICAL INDICATION: Confusion/mental status change TECHNIQUE: Multiple axial images were obtained of the head without intravenous contrast. This CT exam was performed using one or more of the following dose reduction techniques: automated exposure control, adjustment of the mA and/or kV according to patient size, and/or use of iterative reconstruction technique. COMPARISON: No relevant prior studies available. FINDINGS: BRAIN AND EXTRA-AXIAL SPACES: There is non-specific periventricular hypoattenuation which is most commonly related to chronic microvascular ischemic disease in a patient of this age. There is no mass, mass-effect, or shift of the midline structures. No evidence of acute infarct or acute intracranial hemorrhage. There is no evidence of pathologic extra-axial fluid. There is no hydrocephalus. Patent basal cisterns. 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 BONES/JOINTS: No significant abnormality. No discrete lytic or blastic abnormalities. VASCULATURE: Arteriosclerosis. SINUSES: No significant findings. MASTOID AIR CELLS: No significant effusion. ORBITS: No acute findings. CT/Brain/Head without Contrast IMPRESSION: Chronic microvascular ischemic changes. No evidence of acute intracranial pathology. Electronically Signed: Clifton Le DO at 20:19 EDT ,
--- NOTE | 2023-10-17 19:03 | EX.ED.DYSGE1 ---
HPI History of Present Illness Chief Complaint: Alt LOC Detail of Chief Complaint: Altered mental status Informant: patient Narrative Narrative: Patient presents to the emergency department with altered mental status that started around noon today. states the patient had a TURP done 3 days ago and had been doing relatively well until today. Patient has history of Parkinson's. Patient states that she had left for about a half an hour and patient was on the toilet apparently at the time when she came back he was still on the toilet. He had a hard time getting off the toilet but she helped him walk to the bed. Patient's son then came over and he was having a hard time even ambulating at the help of the wheelchair and into the car to bring him in. Patient really unable to give me any history. He does open his eyes and he knows his name. [facility] Medical History History of echocardiogram Wears hearing aid Loss of hearing Wears glasses Anxiety History of steroid therapy Cancer Bladder disease Prostate disease High cholesterol Dietary restriction History of IBS Shortness of breath on exertion Smoker Cardiology follow-up encounter History of irregular heartbeat History of heart attack Fall Carcinoma in situ of skin, unspecified Poorly controlled diabetes mellitus Hypoglycemia Vitamin D deficiency Morbid obesity Hypercholesterolemia Metabolic syndrome Insomnia Neuropathy Hypertensive chronic kidney disease with stage 1 through stage 4 chronic kidney disease, or unspecified chronic kidney disease CAD (coronary artery disease) Chronic sinusitis Osteoarthritis Olecranon bursitis of left elbow Tremor Poor balance Altered mental status Other proteinuria Microalbuminuria Cardiomyopathy, ischemic Presence of stent in coronary artery (~01/28/21) Atherosclerotic heart disease of [place] coronary artery without angina pectoris Depression Fatigue Diarrhea History of colon cancer Multiple adenomatous polyps History of bladder cancer Tobacco abuse counseling Tobacco abuse Burn of thigh Wound, open, hip or thigh Burn of thigh, left, second degree Cellulitis of right anterior lower leg Cellulitis of right lower extremity Reflex sympathetic dystrophy of right leg Sepsis BPH (benign prostatic hyperplasia) Hyperlipemia Type II diabetes mellitus Hypertension Home Medications ?Medication ?Instructions ?Recorded ?Last Taken ?Type duloxetine 60 mg capsule,delayed 60 mg PO DAILY 02/03/15 Unknown History release bupropion HCl 150 mg 24 hr tablet, 150 mg PO DAILY 10/04/19 10/14/23 06:00 History extended release insulin degludec 100 40 unit SQ QHS 10/04/19 10/13/23 History unit-liraglutide 3.6 mg/mL(3 mL) subcutaneous pen rosuvastatin 40 mg tablet 40 mg PO DAILY 10/28/20 Unknown History dapagliflozin propanediol 10 mg 10 mg PO DAILY 01/28/21 Unknown History tablet (Farxiga) losartan 50 mg tablet 50 mg PO QHS 01/28/21 10/13/23 History aspirin 81 mg tablet,delayed 81 mg PO DAILY 06/26/21 10/01/23 History release (Adult Aspirin Regimen) metformin 500 mg tablet,extended 500 - 1,000 mg PO TID 06/26/21 Unknown History release 24 hr Rollaler #1 ea 08/24/21 Unknown Rx Rollator #1 ea 08/24/21 Unknown Rx finasteride 5 mg tablet 5 mg PO DAILY 10/29/21 10/14/23 06:00 History tamsulosin 0.4 mg capsule (Flomax) 0.4 mg PO QHS 10/29/21 10/13/23 History buspirone 15 mg tablet 15 - 30 mg PO BID 02/15/22 10/14/23 06:00 History clopidogrel 75 mg tablet See Rx Instructions .Route 01/24/23 10/02/23 Rx .COMPLEX #90 tabs metoprolol tartrate 25 mg tablet 25 mg PO BID #60 tabs 05/24/23 10/14/23 06:00 Rx carbidopa 25 mg-levodopa 100 mg 2 tab PO .qid #240 tabs 09/13/23 10/14/23 06:00 Rx tablet (Sinemet) cholecalciferol (vitamin D3) 1,250 1,250 mcg PO QWEEK #4 caps 09/13/23 Unknown Rx mcg (50,000 unit) capsule fludrocortisone 0.1 mg tablet 0.1 mg PO MOTUWETHFR 10/04/23 10/14/23 06:00 History ciprofloxacin HCl 500 mg tablet 500 mg PO BID #14 tabs 10/14/23 Unknown Rx (Cipro) Allergy/AdvReac Type Severity Reaction Status Date / Time Sulfa (Sulfonamide Allergy Hives Verified 09/13/23 11:32 Antibiotics) hydrocodone (From [place]) AdvReac Intermediate headache Verified 09/13/23 11:32 hydrocodone bitartrate (From AdvReac Nausea Verified 09/13/23 11:32 Vicodin) topiramate (From Topamax) AdvReac memory Verified 09/13/23 11:32 loss Family History Father Heart disease CHF (congestive heart failure) Grandmother Diabetes Grandfather Diabetes Surgical History History of coronary artery stent placement History of cardiac catheterization Presence of coronary angioplasty implant and graft (~01/28/21) History of colonoscopy History of bladder surgery History of appendectomy History of cholecystectomy History of colectomy History of ankle surgery Social History household members: spouse housing: house Smoking Status: Current every day smoker tobacco type: pipe Smokeless tobacco user: other second hand exposure: No alcohol intake: current alcohol intake frequency: holidays/special occasions only substance use type: does not use caffeine: Yes what type of physical activity do you participate in: none frequency: does not exercise jacob/mandaeism: Caodaism seatbelt use: sometimes ROS ROS ED Review of Systems ROS Unobtainable: due to mental status and other Constitutional Constitutional ED: Reports lethargy; Denies chills, fever(s), sweats or weight loss Eyes Eyes: Denies blurry vision, change in vision or diplopia ENT ENT ED: Denies rhinorrhea or sore throat Cardiovascular Cardiovascular: Denies chest pain, orthopnea or racing heartbeat Respiratory/Chest Respiratory/Chest: Denies cough, dyspnea, dyspnea on exertion, orthopnea or sputum Gastrointestinal Gastrointestinal: Denies abdominal pain, diarrhea, nausea or vomiting Genitourinary Genitourinary ED: Denies dysuria, hematuria or urinary frequency Musculoskeletal Musculoskeletal: Denies arthralgias, back pain, myalgias or neck pain Integumentary Denies abscess, Abrasions or rash Neurologic Neurologic: Denies headache(s) or weakness Psychiatric Psychiatric: Denies anxiety, depression or suicidal thoughts Endocrine Endocrinology: Denies polydipsia, polyphagia or polyuria Hematologic/Lymphatic Hematologic/Lymphatic: Denies easy bleeding, easy bruising or lymphadenopathy Allergic/Immunologic Allergic/Immunologic ED: Denies mouth swelling, tongue swelling or urticaria EXAM Physical Exam Narrative Exam Narrative: Patient obtunded and poor historian most of the history comes from the family. Const Vital Signs: 10/17/23 18:48 10/17/23 18:53 10/17/23 19:03 Temperature 100 F H Temperature Source Axillary Pulse Rate 137 H Respiratory Rate 35 H Blood Pressure 177/99 H Blood Pressure Mean 125 Pulse Ox 91 89 Oxygen Delivery Method Room Air Room Air Oxygen Flow Rate (L/min) 10/17/23 19:03 10/17/23 19:51 10/17/23 20:00 Temperature 100 F H 100 F H Temperature Source Temporal Temporal Pulse Rate 130 H 121 H 121 H Respiratory Rate 39 H 31 H 38 H Blood Pressure 158/102 H 148/100 H Blood Pressure Mean 120 116 Pulse Ox 94 92 92 Oxygen Delivery Method Nasal Cannula Oxygen Flow Rate (L/min) 2 10/17/23 20:20 Temperature Temperature Source Pulse Rate 120 H Respiratory Rate 28 H Blood Pressure 148/100 H Blood Pressure Mean 116 Pulse Ox 91 Oxygen Delivery Method Nasal Cannula Oxygen Flow Rate (L/min) 2 Positive well nourished and well developed General Appearance ED: well developed and NAD HEENT Reports TM's clear and moist mucous membranes normocephalic and atraumatic; Negative for trauma or tenderness Tympanic Membrane ED: Yes TM's clear Eyes PERRL and EOMs intact bilaterally General Eye ED: Negative for pale conjunctiva or scleral icterus Neck no lymphadenopathy, supple and no JVD General: Negative for tenderness Chest Wall inspection of chest normal and palpation of chest normal Chest: Negative for tenderness Resp normal respiratory effort and clear to auscultation bilaterally Effort and Inspection: Negative for respiratory distress or pain with movement Auscultation: Negative for rhonchi, wheezes or diminished lung sounds Cardio regular rate, regular rhythm, S1 normal heart sound, S2 normal heart sound and no murmurs Peripheral Pulses: pulses 2+ throughout GI normal to inspection, nondistended, normoactive bowel sounds, soft to palpation, non-tender, non-distended and no masses GI Narrative: Mildly distended abdomen. Mild diffuse tenderness on exam. No rebound or rigidity. Large body habitus. Back/Spine no CVA tenderness and no thoracic nor lumbar tenderness Extremity normal to inspection General Extremety ED: Negative for edema General Extremity: Negative for edema Neuro No oriented x3, CN's II-XII intact bilaterally, no sensory deficits noted and No gait normal Sensorium / Orientation: awake; Negative for alert, oriented to person, oriented to place or oriented to time Motor Exam: strength 5/5 throughout and strength abnormal Psych Negative for mental status grossly normal Psych Narrative: Obtunded, confused Skin no rashes or lesions noted and no wounds MDM MDM MDM Narrative Medical decision making narrative: Patient presents with low-grade fever and mental status change. Concern for infection possibly. Patient also with abdominal discomfort and some mild distention. Concern for urinary retention given recent TURP. We placed a Rosa catheter. Will obtain blood cultures as well labs and urinalysis. Will get CT brain as well as CT scan of the abdomen pelvis. Patient presents with mental status change and weakness. Low-grade fever. Recent TURP. In the differential would be UTI/sepsis/prostatitis versus other acute intra-abdominal process. IV line established. Blood cultures ordered. He presented vomiting therefore he was given Reglan IV. CBC with differential count of 5.6 with hemoglobin 15.6 and platelet count of 225. Chemistries unremarkable. BUN 19 creatinine 1.95. Glucose was 274. Lactate was elevated 6.7. Patient was started on Zosyn empirically. Blood cultures pending. COVID flu and RSV testing was negative. Urinalysis significant for positive nitrites as well as +1 bacteria and 5-10 WBCs and 50-100 RBCs. Urine culture will be ordered. Chest x-ray was unremarkable. Patient had a CT of the chest abdomen pelvis that was essentially unremarkable. Patient became more coherent and alert and was able to answer questions appropriately. Case discussed with hospitalist who will evaluate patient for admission for concern for sepsis suspect possibly related to urine Lab Data Attestation: I reviewed the patient's lab results. Labs: Laboratory Results - last 24 hr 10/17/23 10/17/23 18:50 19:01 WBC 5.6 RBC 5.35 Hgb 15.6 Hct 48.4 MCV 90.5 MCH 29.2 MCHC 32.2 RDW Std Deviation 45.0 H RDW Coeff of Ranjit 13.8 Plt Count 225 MPV 8.5 Immature Gran % (Auto) 0.700 Neut % (Auto) 91.0 H Lymph % (Auto) 5.5 L [place] % (Auto) 1.4 Eos % (Auto) 0.5 Baso % (Auto) 0.9 Absolute Neuts (auto) 5.1 Absolute Lymphs (auto) 0.31 L Nucleated RBC % 0.4 Differential Comment SEE COMMENT Platelet Estimate ADEQUATE RBC Morphology N CHROM Anisocytosis RARE Macrocytosis RARE Sodium 136 Potassium 4.1 Chloride 104 Carbon Dioxide 19.0 L Anion Gap 13 BUN 19 H Creatinine 1.95 H Estim Creat Clear Calc 32.34 Est GFR (MDRD) Af Amer 43 L Est GFR (MDRD) Non-Af 35 L BUN/Creatinine Ratio 9.7 L Glucose 224 H Lactic Acid 6.7 H* Calcium 10.1 Total Bilirubin 1.00 AST 29 ALT 19 Alkaline Phosphatase 109 Troponin I High Sens 11 Total Protein 8.2 Albumin 3.8 Globulin 4.4 H Albumin/Globulin Ratio 0.9 Urine Color Yellow Urine Clarity Sl. Cloudy Urine pH 6.0 Ur Specific [place] 1.010 Urine Protein 100 H Urine Glucose (UA) 1000 H Urine Ketones 15 H Urine Occult Blood 250 H Urine Nitrite Positive H Urine Bilirubin Negative Urine Urobilinogen Normal Ur Leukocyte Esterase 100 H Urine RBC 50-100 SEEN Urine WBC 5-10 SEEN Ur Squamous Epith Cells 0-5 SEEN Urine Bacteria 1+ Urine Mucus 0 SEEN Radiography Diagnostic Testing: Clinical Impression(s) from Imaging Studies Brain CT 10/17/23 19:02 IMPRESSION: Chronic microvascular ischemic changes. No evidence of acute intracranial pathology. Electronically Signed: Clifton Le DO at 20:19 EDT , Abdomen/Pelvis CT 10/17/23 19:05 IMPRESSION: 1. Chronic appearing although otherwise age-indeterminate compression fracture of L1 without retropulsion of the posterior cortex. Degenerative changes also in the spine. 2. Urinary bladder is decompressed. The wall appears thickened which is likely due to its decompressed state. Perivesicular edema may be indicative of infection. 3. Moderate amount of colorectal stool retention. No bowel obstruction. 4. Colonic diverticulosis without evidence of acute diverticulitis. Electronically Signed: Clifton Le DO at 20:23 EDT , 1 view chest x-ray interpreted by myself as mild cardiomegaly with no evidence of infiltrate or pneumothorax or acute disease process. Radiology reading pending. EKG Initial EKG: Attestation: I personally reviewed and interpreted this EKG as follows: Comments: Sinus tachycardia with ventricular rate of 130 bpm with PACs Discharge Plan Dx/Rx/DC Orders Clinical Impression: Fever, Acute UTI, Altered mental status Disposition Disposition: Acute Care Hospital [facility]
--- NOTE | 2023-10-17 19:05 | CT_ITS ---
EXAM: CT ABDOMEN AND PELVIS WITH INTRAVENOUS CONTRAST CLINICAL INDICATION: abdominal pain, distention TECHNIQUE: Helically acquired images were obtained of the abdomen and pelvis with intravenous contrast. This CT exam was performed using one or more of the following dose reduction techniques: automated exposure control, adjustment of the mA and/or kV according to patient size, and/or use of iterative reconstruction technique. CONTRAST: IV 100mL [id number] COMPARISON: No relevant prior studies available. FINDINGS: LOWER THORAX: Coronary artery calcifications. Mild dependent atelectasis in the bilateral lungs. No cardiomegaly. No significant pericardial effusion. ABDOMEN: LIVER: No significant abnormality. Homogeneous. No focal mass. GALLBLADDER AND BILE DUCTS: Status post cholecystectomy. No intra- or extrahepatic biliary ductal dilation. PANCREAS: No significant abnormality. No focal cystic or solid mass. SPLEEN: No significant abnormality. Normal size without focal cystic or solid mass. ADRENALS: No significant abnormality. No nodules. KIDNEYS AND URETERS: Bilateral renal cysts are present for which no follow-up is indicated. Normal renal size and position. No hydronephrosis. STOMACH AND BOWEL: Moderate amount of colorectal stool retention. Postoperative changes of the cecum. Colonic diverticulosis without evidence of acute diverticulitis. No stomach or bowel distention. PELVIS: APPENDIX: Nonvisualization of the appendix. BLADDER: Urinary bladder is decompressed. The wall appears thickened which is likely due to its decompressed state. Perivesicular edema may be indicative of infection. Rosa catheter present. REPRODUCTIVE: Normal as visualized. No mass. ABDOMEN and PELVIS: INTRAPERITONEAL SPACE: No significant abnormality. No ascites or other fluid collection. No free air. BONES/JOINTS: Chronic appearing although otherwise age-indeterminate compression fracture of L1 without retropulsion of the posterior cortex. Extensive osseous degenerative changes. No suspicious lytic or blastic abnormality. SOFT TISSUES: No evidence of abdominal wall hernia. VASCULATURE: Atherosclerosis of the aorta and its branch vessels without evidence of aneurysm or dissection. LYMPH NODES: No significant abnormality. No enlarged lymph nodes. TUBES, LINES AND DEVICES: Spinal cord stimulator with lead entering the spinal canal at the level of L2-L3. CT/Abdomen/Pelvis W IV Cont ONLY IMPRESSION: 1. Chronic appearing although otherwise age-indeterminate compression fracture of L1 without retropulsion of the posterior cortex. Degenerative changes also in the spine. 2. Urinary bladder is decompressed. The wall appears thickened which is likely due to its decompressed state. Perivesicular edema may be indicative of infection. 3. Moderate amount of colorectal stool retention. No bowel obstruction. 4. Colonic diverticulosis without evidence of acute diverticulitis. Electronically Signed: Clifton Le DO at 20:23 EDT ,
[2023-10-17 19:15] LABS: Absolute Lymphocyte Count 0.31 X10^3/uL (0.83-4.51); Absolute Neutrophil Count 5.1 X10^3/uL (2.0-7.7); Basophil# 0.05 X10^3/uL; Basophil% 0.9 % (0-1); Eosinophil# 0.03 X10^3/uL; Eosinophils% 0.5 % (0-5); Hematocrit 48.4 % (40-54); Hemoglobin 15.6 g/dL (13.0-16.5); Lymphocyte # 0.31 X10^3/ul (0.83-4.51); Lymphocyte % 5.5 % (19-41); Mean Corp Hgb Conc 32.2 g/dL (32-36); Mean Corpuscular Hgb 29.2 pg (27.0-32.0); Mean Corpuscular Volume 90.5 fL (80-94); Mean Platelet Vol. 8.5 fl (6.2-12.0); Monocyte# 0.08 X10^3/uL; Monocyte% 1.4 % (0-10); NRBC Flagged by Analyzer 0.4 % (0-5); Neutrophil # 5.09 X10^3/uL (2.7-7.7); POSITIVE DIFFERENTIAL YES; Platelet Count 225 K/mm3 (150-450); RBC Distribution Width CV 13.8 % (11.6-14.6); Red Blood Count 5.35 M/mm3 (4.6-6.2); White Blood Count 5.6 K/mm3 (4.4-11.0)
[2023-10-17 19:17] LABS: Mucous, Urine 0 SEEN /hpf (<or=2+)
[2023-10-17] MEDS: Metoclopramide 10 MG/2 ML Vial IV (19:21)
[2023-10-17] MEDS: 0.9% Normal Saline (1000mL) 1,000 ML 150 ML IV (19:21)
[2023-10-17 19:25] LABS: Differential Indicated SCAN CRITERIA MET
[2023-10-17 19:28] LABS: ALB/GLOB Ratio 0.9 RATIO (0.9-2.4); AST(SGOT) 29 U/L (15-37); Alanine Aminotransfer ALT/SGPT 19 U/L (16-61); Albumin, Serum 3.8 g/dL (3.2-5.0); Alkaline Phosphatase 109 U/L (45-117); Anion Gap 13 (5-15); BUN 19 mg/dL (7-18); BUN/Creat Ratio 9.7 RATIO (10-20); Calcium,Total 10.1 mg/dL (8.5-10.1); Chloride 104 mmol/L (98-107); Creatinine, Serum 1.95 mg/dL (0.70-1.30); EST Glomerular Filtration Rate 35 mL/min (>60); Est Glom Filt Rate - Afr Amer 43 mL/min (>60); Estimated Creatinine Clearance 32.34 ml/min; Globulin 4.4 g/dL (2.2-4.2); Glucose 224 mg/dL (74-106); Potassium 4.1 mmol/L (3.5-5.1); Protein, Total 8.2 g/dL (6.4-8.2); Sodium Level 136 mmol/L (136-145); Troponin-I HS 11 pg/mL (3.0-78.0)
[2023-10-17 19:42] LABS: Color, Urine Yellow (Yellow); Glucose, Dipstick 1000 mg/dl (Normal); Ketone-Dipstick 15 mg/dl (Negative); Leukocyte Esterase-Dipstick 100 /ul (Negative); Nitrite-Dipstick Positive (Negative); Occult Blood-Urine 250 /ul (Negative); Protein-Dipstick 100 mg/dl (Negative); Urine Bilirubin Dipstick Negative (Negative); Urine Clarity Sl. Cloudy (Clear); Urine Urobilinogen Normal (Normal)
[2023-10-17 19:45] LABS: Anisocytosis RARE; Lactic Acid 6.7 mmol/L (0.4-1.9); Macrocytosis RARE; Platelet Estimate ADEQUATE (ADEQ); Red Cell Morphology N CHROM NORMAL (NORM C&C)
[2023-10-17 19:51] LABS: Bacteria 1+ /hpf (None Seen); Red Blood Cells-Urine 50-100 SEEN /hpf (0-5); Squamous Epithelial Cells - UA 0-5 SEEN /hpf (0-5); White Blood Cells 5-10 SEEN /hpf (0-5)
[2023-10-17] MEDS: Piperacil/Tazobactam 4.5 GM in 0.9% Normal Saline (100mL MB+) 100 ML IV (20:08)
--- NOTE | 2023-10-17 20:10 | RAD_ITS ---
EXAM: XR CHEST, 1 VIEW CLINICAL INDICATION: fever TECHNIQUE: Frontal view of the chest. COMPARISON: No relevant prior studies available. FINDINGS: LUNGS AND PLEURAL SPACES: Bibasilar pulmonary opacities may be atelectasis or pneumonia. No pneumothorax. No effusion. HEART: Borderline cardiomegaly and/or pericardial effusion. MEDIASTINUM: Central airways and mediastinal contour are unremarkable. BONES/JOINTS: Degenerative changes in the spine and shoulders. No acute fracture. SOFT TISSUES: No significant abnormality. VASCULATURE: Atherosclerosis. TUBES, LINES AND DEVICES: Spinal CORD stimulator leads partially visualized. RAD/Chest 1 View (Portable) IMPRESSION: 1. Borderline cardiomegaly and/or pericardial effusion. 2. Bibasilar pulmonary opacities may be atelectasis or pneumonia. Electronically Signed: Clifton Le DO at 20:56 EDT ,
--- NOTE | 2023-10-17 20:56 | PCM.HP.STD ---
HPI - General General Date of Admission: 10/17/23 Date of Service: 10/17/23 Chief Complaint: Altered mental status HPI Narrative DAFNE OBANDO, is a 78 M who presents to the emergency room with altered mental status. Patient has significant past medical history of transurethral resection of the prostate surgery 3 days ago. Earlier today at noon patient went to use the restroom and when the returned from shopping an hour and a half later he was still there. Patient was confused and disoriented. He was unable to give much history at that time and patient was brought to the emergency room for evaluation. Patient does have a history of Parkinson disease as well. Initial lab results show white blood cell count of 5.6 thousand, hemoglobin of 15.6, hematocrit 48.4, platelets of 225, sodium 136, potassium 4.1, chloride 104, bicarb 19, BUN 19, creatinine 1.95 with a lactate of 6.7. Urinalysis is positive for nitrites as well. Patient was empirically started with Zosyn in the emergency room and IV fluids. Will be admitted to the progressive care unit for management of urinary tract infection following prostate surgery. He does have an indwelling Rosa catheter at this time. At the time of my evaluation patient was a little bit more alert than when he first arrived and was able to communicate however, he was still confused. He denies having any chest pain, shortness of breath at this time [facility] Medical History History of echocardiogram Wears hearing aid Loss of hearing Wears glasses Anxiety History of steroid therapy Cancer Bladder disease Prostate disease High cholesterol Dietary restriction History of IBS Shortness of breath on exertion Smoker Cardiology follow-up encounter History of irregular heartbeat History of heart attack Fall Carcinoma in situ of skin, unspecified Poorly controlled diabetes mellitus Hypoglycemia Vitamin D deficiency Morbid obesity Hypercholesterolemia Metabolic syndrome Insomnia Neuropathy Hypertensive chronic kidney disease with stage 1 through stage 4 chronic kidney disease, or unspecified chronic kidney disease CAD (coronary artery disease) Chronic sinusitis Osteoarthritis Olecranon bursitis of left elbow Tremor Poor balance Altered mental status Other proteinuria Microalbuminuria Cardiomyopathy, ischemic Presence of stent in coronary artery (~01/28/21) Atherosclerotic heart disease of [place] coronary artery without angina pectoris Depression Fatigue Diarrhea History of colon cancer Multiple adenomatous polyps History of bladder cancer Tobacco abuse counseling Tobacco abuse Burn of thigh Wound, open, hip or thigh Burn of thigh, left, second degree Cellulitis of right anterior lower leg Cellulitis of right lower extremity Reflex sympathetic dystrophy of right leg Sepsis BPH (benign prostatic hyperplasia) Hyperlipemia Type II diabetes mellitus Hypertension Home Medications ?Medication ?Instructions ?Recorded ?Last Taken ?Type duloxetine 60 mg capsule,delayed 60 mg PO DAILY 02/03/15 Unknown History release bupropion HCl 150 mg 24 hr tablet, 150 mg PO DAILY 10/04/19 10/14/23 06:00 History extended release insulin degludec 100 40 unit SQ QHS 10/04/19 10/13/23 History unit-liraglutide 3.6 mg/mL(3 mL) subcutaneous pen rosuvastatin 40 mg tablet 40 mg PO DAILY 10/28/20 Unknown History dapagliflozin propanediol 10 mg 10 mg PO DAILY 01/28/21 Unknown History tablet (Farxiga) losartan 50 mg tablet 50 mg PO QHS 01/28/21 10/13/23 History aspirin 81 mg tablet,delayed 81 mg PO DAILY 06/26/21 10/01/23 History release (Adult Aspirin Regimen) metformin 500 mg tablet,extended 500 - 1,000 mg PO TID 06/26/21 Unknown History release 24 hr Rollaler #1 ea 08/24/21 Unknown Rx Rollator #1 ea 08/24/21 Unknown Rx finasteride 5 mg tablet 5 mg PO DAILY 10/29/21 10/14/23 06:00 History tamsulosin 0.4 mg capsule (Flomax) 0.4 mg PO QHS 10/29/21 10/13/23 History buspirone 15 mg tablet 15 - 30 mg PO BID 02/15/22 10/14/23 06:00 History clopidogrel 75 mg tablet See Rx Instructions .Route 01/24/23 10/02/23 Rx .COMPLEX #90 tabs metoprolol tartrate 25 mg tablet 25 mg PO BID #60 tabs 05/24/23 10/14/23 06:00 Rx carbidopa 25 mg-levodopa 100 mg 2 tab PO .qid #240 tabs 09/13/23 10/14/23 06:00 Rx tablet (Sinemet) cholecalciferol (vitamin D3) 1,250 1,250 mcg PO QWEEK #4 caps 09/13/23 Unknown Rx mcg (50,000 unit) capsule fludrocortisone 0.1 mg tablet 0.1 mg PO MOTUWETHFR 10/04/23 10/14/23 06:00 History ciprofloxacin HCl 500 mg tablet 500 mg PO BID #14 tabs 10/14/23 Unknown Rx (Cipro) Allergy/AdvReac Type Severity Reaction Status Date / Time Sulfa (Sulfonamide Allergy Hives Verified 09/13/23 11:32 Antibiotics) hydrocodone (From [place]) AdvReac Intermediate headache Verified 09/13/23 11:32 hydrocodone bitartrate (From AdvReac Nausea Verified 09/13/23 11:32 Vicodin) topiramate (From Topamax) AdvReac memory Verified 09/13/23 11:32 loss Family History Father Heart disease CHF (congestive heart failure) Grandmother Diabetes Grandfather Diabetes Surgical History History of coronary artery stent placement History of cardiac catheterization Presence of coronary angioplasty implant and graft (~01/28/21) History of colonoscopy History of bladder surgery History of appendectomy History of cholecystectomy History of colectomy History of ankle surgery Social History household members: spouse housing: house Smoking Status: Current every day smoker tobacco type: pipe Smokeless tobacco user: other second hand exposure: No alcohol intake: current alcohol intake frequency: holidays/special occasions only substance use type: does not use caffeine: Yes what type of physical activity do you participate in: none frequency: does not exercise jacob/latter-day: Latter Day seatbelt use: sometimes ROS Review of Systems ROS Unobtainable: due to mental status Vital Signs Vital Signs Vital Signs: 10/17/23 18:48 10/17/23 18:53 10/17/23 19:03 Temperature 100 F H Temperature Source Axillary Pulse Rate 137 H Respiratory Rate 35 H Blood Pressure 177/99 H Blood Pressure Mean 125 Pulse Ox 91 89 Oxygen Delivery Method Room Air Room Air Oxygen Flow Rate (L/min) 10/17/23 19:03 10/17/23 19:51 10/17/23 20:00 Temperature 100 F H 100 F H Temperature Source Temporal Temporal Pulse Rate 130 H 121 H 121 H Respiratory Rate 39 H 31 H 38 H Blood Pressure 158/102 H 148/100 H Blood Pressure Mean 120 116 Pulse Ox 94 92 92 Oxygen Delivery Method Nasal Cannula Oxygen Flow Rate (L/min) 2 10/17/23 20:20 Temperature Temperature Source Pulse Rate 120 H Respiratory Rate 28 H Blood Pressure 148/100 H Blood Pressure Mean 116 Pulse Ox 91 Oxygen Delivery Method Nasal Cannula Oxygen Flow Rate (L/min) 2 Weight Weight: 190 lb 14.4 oz Body Mass Index (BMI) 29.0 Physical Exam Const Orientation / Consciousness: confused and lethargic HEENT normocephalic Eyes PERRL Neck no lymphadenopathy General: trachea midline Lymph Lymphatic: no lymphadenopathy noted Resp normal air movement and clear to auscultation bilaterally Effort and Inspection: Negative for respiratory distress Cardio regular rate, regular rhythm, S1 normal heart sound, S2 normal heart sound and no murmurs Rate: tachycardic GI normal to inspection, nondistended, normoactive bowel sounds Palpation: Negative for guarding Extremity no clubbing, cyanosis or edema Skin General Skin Exam: no breakdown Neuro no focal motor deficits and no sensory deficits noted Results Lab / Micro Data 10/17/23 18:50 10/17/23 18:50 Labs: Laboratory Results - last 24 hr 10/17/23 18:50: WBC 5.6, RBC 5.35, Hgb 15.6, Hct 48.4, MCV 90.5, MCH 29.2, MCHC 32.2, RDW Std Deviation 45.0 H, RDW Coeff of Ranjit 13.8, Plt Count 225, MPV 8.5, Immature Gran % (Auto) 0.700, Neut % (Auto) 91.0 H, Lymph % (Auto) 5.5 L, [place] % (Auto) 1.4, Eos % (Auto) 0.5, Baso % (Auto) 0.9, Absolute Neuts (auto) 5.1, Absolute Lymphs (auto) 0.31 L, Nucleated RBC % 0.4, Differential Comment SEE COMMENT, Platelet Estimate ADEQUATE, RBC Morphology N CHROM, Anisocytosis RARE, Macrocytosis RARE, Sodium 136, Potassium 4.1, Chloride 104, Carbon Dioxide 19.0 L, Anion Gap 13, BUN 19 H, Creatinine 1.95 H, Estim Creat Clear Calc 32.34, Est GFR (MDRD) Af Amer 43 L, Est GFR (MDRD) Non-Af 35 L, BUN/Creatinine Ratio 9.7 L, Glucose 224 H, Lactic Acid 6.7 H*, Calcium 10.1, Total Bilirubin 1.00, AST 29, ALT 19, Alkaline Phosphatase 109, Troponin I High Sens 11, Total Protein 8.2, Albumin 3.8, Globulin 4.4 H, Albumin/Globulin Ratio 0.9 10/17/23 19:01: Urine Color Yellow, Urine Clarity Sl. Cloudy, Urine pH 6.0, Ur Specific [place] 1.010, Urine Protein 100 H, Urine Glucose (UA) 1000 H, Urine Ketones 15 H, Urine Occult Blood 250 H, Urine Nitrite Positive H, Urine Bilirubin Negative, Urine Urobilinogen Normal, Ur Leukocyte Esterase 100 H, Urine RBC 50-100 SEEN, Urine WBC 5-10 SEEN, Ur Squamous Epith Cells 0-5 SEEN, Urine Bacteria 1+, Urine Mucus 0 SEEN Micro: Microbiology 10/17/23 19:01 Mucosa - Nose SARS-CoV-2, Influenza & RSV (PCR) - Final Imaging Radiology Impression Brain CT 10/17/23 19:02 IMPRESSION: Chronic microvascular ischemic changes. No evidence of acute intracranial pathology. Electronically Signed: Clifton Le DO at 20:19 EDT , Abdomen/Pelvis CT 10/17/23 19:05 IMPRESSION: 1. Chronic appearing although otherwise age-indeterminate compression fracture of L1 without retropulsion of the posterior cortex. Degenerative changes also in the spine. 2. Urinary bladder is decompressed. The wall appears thickened which is likely due to its decompressed state. Perivesicular edema may be indicative of infection. 3. Moderate amount of colorectal stool retention. No bowel obstruction. 4. Colonic diverticulosis without evidence of acute diverticulitis. Electronically Signed: Clifton Le DO at 20:23 EDT , Assessment & Plan Assessment/Plan (1) Altered mental status: (2) Acute UTI: (3) Parkinson's disease: (4) Hypertension: QUALIFIERS: Hypertension type: essential hypertension Qualified Code(s): I10 - Essential (primary) hypertension (5) Type II diabetes mellitus: (6) Hyperlipemia: PLAN: Plan 1 altered mental status, secondary to urinary tract infection post transurethral resection of prostate surgery 3 days ago?admit patient to progressive care unit, IV hydration, continue IV Zosyn initiated in the emergency room for empiric coverage of urinary tract infection that may be nosocomial in nature., Repeat CBC BMP in the morning along with lactate per routine protocol and monitor progression for neurologic improvement 2. Parkinson's disease?continue routine home medications 3. Diabetes?will hold oral medications overnight and resume in the morning when patient is more alert and eating 4. Hyperlipidemia?continue statin medication 5. Hypertension?will hold hypertensive medications overnight monitor and add back when appropriate 6. DVT prophylaxis?SCDs due to impaired renal function Charges/Coding Visit Charges Inpatient E&M: 60341 Init Hosp L2
[2023-10-17] MEDS: 0.9% Normal Saline (1000mL) 1,000 ML 999 ML IV (21:50)
[2023-10-17] MEDS: Tamsulosin HCl 0.4 MG Capsule PO (23:06)
[2023-10-17] MEDS: busPIRone 15 MG TABLET 30 MG PO (23:06)
[2023-10-17] MEDS: Carbidopa/Levodopa 25/100 Tablet PO (23:07)
[2023-10-17 23:11] LABS: Reflex Lactate? Y
[2023-10-18 00:04] VITALS: BP 107/73; PULSE 105; RESP 18; TEMP 36.7; O2SAT 94
[2023-10-18 00:19] VITALS: BP 106/68; PULSE 103; RESP 18; TEMP 36.6; O2SAT 93
[2023-10-18] MEDS: 0.9% Normal Saline (1000mL) 1,000 ML 150 ML IV ×2 (01:47→09:12)
[2023-10-18] MEDS: Carbidopa/Levodopa 25/100 Tablet PO ×4 (07:05→20:29)
[2023-10-18 07:08] LABS: Lactic Acid 4.9 mmol/L (0.4-1.9)
[2023-10-18] MEDS: Piperacil/Tazobactam 3.375 GM in 0.9% Normal Saline (50mL MB+) 50 ML IV ×3 (07:08→21:45)
[2023-10-18 07:29] LABS: Bedside Glucose 174 mg/dL (74-106)
[2023-10-18 07:43] LABS: Anion Gap 8 (5-15); BUN 24 mg/dL (7-18); BUN/Creat Ratio 14.8 RATIO (10-20); Calcium,Total 8.8 mg/dL (8.5-10.1); Chloride 109 mmol/L (98-107); Creatinine, Serum 1.62 mg/dL (0.70-1.30); EST Glomerular Filtration Rate 44 mL/min (>60); Est Glom Filt Rate - Afr Amer 53 mL/min (>60); Estimated Creatinine Clearance 37.55 ml/min; Glucose 212 mg/dL (74-106); Potassium 4.4 mmol/L (3.5-5.1); Sodium Level 137 mmol/L (136-145)
[2023-10-18] MEDS: Aspirin E.C. 81 MG Tablet PO (09:14)
[2023-10-18] MEDS: Fludrocortisone Acetate 0.1 MG Tablet PO (09:14)
[2023-10-18] MEDS: Clopidogrel Bisulfate 75 MG Tablet PO (09:14)
[2023-10-18] MEDS: buPROPion (XL) 150 MG TABLET.XL PO (09:14)
[2023-10-18] MEDS: DULoxetine Hcl 60 MG Capsule PO (09:14)
[2023-10-18] MEDS: busPIRone 15 MG TABLET PO (09:14)
[2023-10-18 09:20] VITALS: BP 113/63; PULSE 82; RESP 16; TEMP 36.4; O2SAT 98
[2023-10-18 09:47] LABS: Hematocrit 40.8 % (40-54); Hemoglobin 13.6 g/dL (13.0-16.5); Mean Corp Hgb Conc 33.3 g/dL (32-36); Mean Corpuscular Volume 90.1 fL (80-94); POSITIVE DIFFERENTIAL YES; POSITIVE MORPHOLOGY YES; Platelet Count 211 K/mm3 (150-450); RBC Distribution Width CV 14.2 % (11.6-14.6); RBC Distribution Width SD 46.1 fl (35.1-43.9); Red Blood Count 4.53 M/mm3 (4.6-6.2); White Blood Count 24.2 K/mm3 (4.4-11.0)
--- NOTE | 2023-10-18 10:18 | PCM.PN.HOSP ---
Reason for Visit Reason for Visit: Altered mental status Subjective Subjective Mr. Clark is a 78-year-old white male who presented emergency department [facility] on 10/17/2023 due to altered mental status. 3 days ago he had a TURP done with Dr. Valverde and earlier on the day of presentation at about noon the patient went to use the restroom and when his returned from shopping an hour and a half later he was still there. Patient was confused and disoriented at that time and brought to the emergency department for further evaluation. Vital signs on presentation showed a temperature of 100 degrees, heart rate 137, respiratory was 35, pulse ox was 91% on room air with a repeat of 89% on room air and subsequent improvement to 94% on 2 L nasal cannula. CBC on presentation showed a leukocytosis with a white count of 24.2 and a significant left shift with an 80.1% neutrophilia. Chemistry panel showed normal electrolytes and a serum creatinine of 1.95 which is close with baseline. His blood glucose level was 224. His initial lactate was 6.7. Bilirubin was normal. His UA was consistent with infection being positive for nitrites, leuk esterase, white cells, and bacteria. CT of the abdomen pelvis was performed and showed chronic appearing age-indeterminate compression fracture of L1, urinary bladder decompression with wall thickening and perivesicular edema, moderate amount of colorectal stool retention with no bowel obstruction and colonic diverticulosis. Blood and urine cultures were obtained and the patient was started on broad-spectrum antibiotics with Zosyn. Previous cultures were reviewed and sensitive to everything except quinolones. Per patient's he does have some mild cognitive impairment at discharge however he was much more confused at the time she found him than his baseline. She states that he is dramatically better today after getting treated. We discussed the fact that he has urinary tract infection in bacteria in his bloodstream. Objective Data Objective Data Vital Signs: Vital Signs Temp Pulse Resp BP Pulse Ox O2 Del Method O2 Flow Rate 97.6 F L 82 16 113/63 98 Nasal Cannula 2 10/18/23 09:20 10/18/23 09:20 10/18/23 09:20 10/18/23 09:20 10/18/23 09:20 10/18/23 09:20 10/18/23 09:20 Oxygen Flow Rate (L/min) 2 Oxygen Delivery Method Nasal Cannula Weight: 84.5 kg Body Mass Index (BMI) 26.7 Intake & Output: Intake and Output for Last 24 Hours 10/16/23 10/17/23 10/18/23 23:59 23:59 23:59 Intake Total 1617.5 / 1617.5 1000 / 1000 Output Total 250 / 250 Balance 1367.5 / 1367.5 1000 / 1000 Lab / Micro Data 10/18/23 05:33 10/18/23 05:33 Labs: Laboratory Results - last 24 hr 10/17/23 18:50: WBC 5.6, RBC 5.35, Hgb 15.6, Hct 48.4, MCV 90.5, MCH 29.2, MCHC 32.2, RDW Std Deviation 45.0 H, RDW Coeff of Ranjit 13.8, Plt Count 225, MPV 8.5, Immature Gran % (Auto) 0.700, Neut % (Auto) 91.0 H, Lymph % (Auto) 5.5 L, [place] % (Auto) 1.4, Eos % (Auto) 0.5, Baso % (Auto) 0.9, Absolute Neuts (auto) 5.1, Absolute Lymphs (auto) 0.31 L, Nucleated RBC % 0.4, Differential Comment SEE COMMENT, Platelet Estimate ADEQUATE, RBC Morphology N CHROM, Anisocytosis RARE, Macrocytosis RARE, Sodium 136, Potassium 4.1, Chloride 104, Carbon Dioxide 19.0 L, Anion Gap 13, BUN 19 H, Creatinine 1.95 H, Estim Creat Clear Calc 32.34, Est GFR (MDRD) Af Amer 43 L, Est GFR (MDRD) Non-Af 35 L, BUN/Creatinine Ratio 9.7 L, Glucose 224 H, Lactic Acid 6.7 H*, Calcium 10.1, Total Bilirubin 1.00, AST 29, ALT 19, Alkaline Phosphatase 109, Troponin I High Sens 11, Total Protein 8.2, Albumin 3.8, Globulin 4.4 H, Albumin/Globulin Ratio 0.9 10/17/23 19:01: Urine Color Yellow, Urine Clarity Sl. Cloudy, Urine pH 6.0, Ur Specific [place] 1.010, Urine Protein 100 H, Urine Glucose (UA) 1000 H, Urine Ketones 15 H, Urine Occult Blood 250 H, Urine Nitrite Positive H, Urine Bilirubin Negative, Urine Urobilinogen Normal, Ur Leukocyte Esterase 100 H, Urine RBC 50-100 SEEN, Urine WBC 5-10 SEEN, Ur Squamous Epith Cells 0-5 SEEN, Urine Bacteria 1+, Urine Mucus 0 SEEN 10/17/23 23:08: Lactic Acid 4.9 H* 10/18/23 05:33: Sodium 137, Potassium 4.4, Chloride 109 H, Carbon Dioxide 20.0 L, Anion Gap 8, BUN 24 H, Creatinine 1.62 H, Estim Creat Clear Calc 37.55, Est GFR (MDRD) Af Amer 53 L, Est GFR (MDRD) Non-Af 44 L, BUN/Creatinine Ratio 14.8, Glucose 212 H, Calcium 8.8 10/18/23 07:10: POC Glucose 174 H Micro: Microbiology 10/17/23 18:50 Blood Culture (Wb) - Anticubital Left Blood Culture - Preliminary 10/17/23 18:54 Blood Culture (Wb) - Anticubital Right Blood Culture - Preliminary 10/17/23 19:01 Mucosa - Nose SARS-CoV-2, Influenza & RSV (PCR) - Final Radiography Diagnostic Testing: Radiology Impression Brain CT 10/17/23 19:02 IMPRESSION: Chronic microvascular ischemic changes. No evidence of acute intracranial pathology. Electronically Signed: Clifton VMiguel Angel Le DO at 20:19 EDT , Abdomen/Pelvis CT 10/17/23 19:05 IMPRESSION: 1. Chronic appearing although otherwise age-indeterminate compression fracture of L1 without retropulsion of the posterior cortex. Degenerative changes also in the spine. 2. Urinary bladder is decompressed. The wall appears thickened which is likely due to its decompressed state. Perivesicular edema may be indicative of infection. 3. Moderate amount of colorectal stool retention. No bowel obstruction. 4. Colonic diverticulosis without evidence of acute diverticulitis. Electronically Signed: Clifton Kelsy Le DO at 20:23 EDT , Chest X-Ray 10/17/23 20:10 IMPRESSION: 1. Borderline cardiomegaly and/or pericardial effusion. 2. Bibasilar pulmonary opacities may be atelectasis or pneumonia. Electronically Signed: Clifton Le DO at 20:56 EDT , Physical Exam Const alert, no apparent distress, average body habitus and well nourished; Negative for oriented x3 Constitutional Narrative: Pleasant, elderly, white male, sitting up in a chair at the bedside, oriented to self but not place or time, did come in during my eval and states that he is doing much better today, patient appears comfortable and looks ill but not toxic Orientation / Consciousness: confused HEENT head/scalp atraumatic and moist oral mucous membranes HEENT Narrative: Dentition is poor, Mallampati is 3, no thrush Head and Scalp: normocephalic Eyes PERRL, EOMs intact bilaterally and conjunctivae normal Eyes Narrative: No scleral icterus Neck no lymphadenopathy and supple Neck Narrative: Trachea midline, no thyroid enlargement Resp normal respiratory effort, no retractions, no use of accessory muscles and clear to auscultation bilaterally Auscultation: Negative for rales, rhonchi or wheezes Cardio regular rate, regular rhythm, S1 normal heart sound, S2 normal heart sound, no murmurs, no rub, no gallops and no clicks GI normal to inspection, nondistended, normoactive bowel sounds, soft to palpation and non-tender Extremity no clubbing, cyanosis or edema Skin no rashes or lesions noted, no wounds, skin turgor normal, no jaundice, no petechiae and no mottling Skin Narrative: No significant skin lesions, skin is somewhat pale Neuro moves all extremities and no focal motor deficits Sensorium / Orientation: awake, alert and oriented to person Speech: speech normal Psych Psych Narrative: Pleasant, confused, Assessment & Plan Assessment/Plan (1) Gram-negative bacteremia: (2) Altered mental status: (3) Acute UTI: (4) Fever: PLAN: Plan Sepsis secondary to gram-negative bacteremia from urinary tract infection -Await finalization of blood cultures for identification and sensitivities -Continue Zosyn -Patient was treated with only 1 L bolus and then given continuous fluids rather than another bolus due to history of heart failure -Patient had a markedly elevated lactic acidosis with a significant leukocytosis, new oxygen requirements, slightly worsening of his creatinine and altered mentation -Monitor blood pressure closely -Discontinue home ciprofloxacin -CT of the abdomen and pelvis was performed and no obstruction noted -Consult urology Lactic acidosis -Secondary to the above -Is trending down with treatment of sepsis and fluid resuscitation -No need to follow Leukocytosis -Secondary above -Will trend -treatment as above Toxic/metabolic encephalopathy -Secondary to sepsis -Should improve with resolution of infection CAD/HTN/HPL/ischemic cardiomyopathy -JOJO to pLAD 01/28/21 -EF on last echo was 45% -Will continue fluids but decrease rate to 70 until p.o. intake is adequate then discontinue -Monitor closely for signs of volume overload -Continue home aspirin -Continue home Plavix -Hold home Farxiga -Hold losartan/metoprolol -Restart when blood pressure is normalized/stabilized -Continue home statin BPH with obstruction -Status post TURP 10/15/2023 -Continue home Flomax Parkinson's disease -Continue home carbidopa/levodopa DM-2 -Hold home Farxiga/metformin -Continue home insulin -Add sliding scale add sliding scale -Switch diet from regular general to cardiac/carb controlled -Accuchecks as ordered Mild cognitive impairment -Per he does fairly well but does have some memory loss at baseline A-fib not on any medication for this Depression/Anxiety -cont Buspar -Cont Duloxetine DVT Prophylaxis -Lovenox 40 mg daily CODE STATUS -Listed as full code but unverified will try to discuss further today if patient's mentation allows Sepsis Attestation Sepsis Alert: Yes Sepsis Attestation: Agree w/Sepsis Date exam was performed: 10/18/23 Time exam was performed: 10:26 Possible Source of Sepsis: Genitourinary Sepsis Organ Dysfunction Criteria Present: SBP decrease of more than 40 mmHg, Lactic Acid > 2 mmol/L and New/Unexplained change in mental status Fluid Resuscitation Fluid Resuscitation ordered: Lesser volume fluid bolus ordered Amount of fluid ordered: 1 Reason for lesser fluid bolus:: Heart failure (Last documented EF 45%) Charges/Coding Visit Charges Inpatient E&M: 69767 [facility] Hosp L3
[2023-10-18 10:34] VITALS: O2SAT 94
--- NOTE | 2023-10-18 11:20 | CASEMGMT ---
VERENICE MAX Face to Face with patient for initial transition planning/care coordination assessment. RN CM introduced self and role at [facility]. Patient lying in bed, alert and oriented, at bedside. Patient willing to participate in assessment and is able to answer all questions appropriately. Care providers, pharmacy, and demographics verified. PCP: Sam Specialists: Soren, neurologist; Gallito, instructional facilitator; Nicolle, urologist Preferred Pharmacy: [facility], [place] Insurance: [facility] Prescription Benefit: yes Living Will/HPOA: none LNOK: Living Arrangements: Patient lives with in a 2 story home with bed and bath on first floor, no steps to enter the home. Patient is independent at home Transportation: DME/HHC: Patient has shower chair, raised toilet, cane, walker, rollator, wheelchair, grab bars at home. No previous HHC or SNF Patient and wish to discharge home, denies need for home health at this time. Patient states he has no further needs or concerns at this time. CM to follow for discharge planning needs that may arise. Disposition Plan: Patient to discharge home with family support and follow-up plans in place. Viry LO, RN, CM
--- NOTE | 2023-10-18 11:42 | PCM.CONS.U ---
HPI Consult Data Date of Consult: 10/18/23 HPI Narrative Reason for Consultation: Postop urinary tract infection HPI Narrative: DAFNE OBANDO, is a 78 M who presents to the hospital with confusion was found to have a urinary tract infection altered mental status and confusion he had a TURP last week went home reports that he was doing well getting around for several days has been urinating without any problems and then he went to the restroom sat in the toilet and she came back and found him very confused on the toilet. He was brought into the hospital found to have positive cultures awaiting final sensitivities he is on broad-spectrum antibiotics urine catheter is in place which is fine. I think he can go home with a catheter continue with antibiotics per the cultures he can follow-up next week in my office to have the catheter removed call with questions [facility] Medical History (Updated 10/18/23 @ 10:[address] Mariluz Mg, DO) History of echocardiogram Wears hearing aid Loss of hearing Wears glasses Anxiety History of steroid therapy Cancer Bladder disease Prostate disease High cholesterol Dietary restriction History of IBS Shortness of breath on exertion Smoker Cardiology follow-up encounter History of irregular heartbeat History of heart attack Fall Carcinoma in situ of skin, unspecified Poorly controlled diabetes mellitus Hypoglycemia Vitamin D deficiency Morbid obesity Hypercholesterolemia Metabolic syndrome Insomnia Neuropathy Hypertensive chronic kidney disease with stage 1 through stage 4 chronic kidney disease, or unspecified chronic kidney disease CAD (coronary artery disease) Chronic sinusitis Osteoarthritis Olecranon bursitis of left elbow Tremor Poor balance Altered mental status Other proteinuria Microalbuminuria Cardiomyopathy, ischemic Presence of stent in coronary artery (~01/28/21) Atherosclerotic heart disease of [place] coronary artery without angina pectoris Depression Fatigue Diarrhea History of colon cancer Multiple adenomatous polyps History of bladder cancer Tobacco abuse counseling Tobacco abuse Burn of thigh Wound, open, hip or thigh Burn of thigh, left, second degree Cellulitis of right anterior lower leg Cellulitis of right lower extremity Reflex sympathetic dystrophy of right leg Sepsis BPH (benign prostatic hyperplasia) Hyperlipemia Type II diabetes mellitus Hypertension Home Medications ?Medication ?Instructions ?Recorded ?Last Taken ?Type duloxetine 60 mg capsule,delayed 60 mg PO DAILY 02/03/15 Unknown History release bupropion HCl 150 mg 24 hr tablet, 150 mg PO DAILY 10/04/19 10/14/23 06:00 History extended release insulin degludec 100 36 unit SQ QHS diabetic 10/04/19 10/13/23 History unit-liraglutide 3.6 mg/mL(3 mL) subcutaneous pen rosuvastatin 40 mg tablet 40 mg PO DAILY unknown 10/28/20 Unknown History dapagliflozin propanediol 10 mg 10 mg PO DAILY 01/28/21 Unknown History tablet (Farxiga) losartan 50 mg tablet 50 mg PO QHS 01/28/21 10/13/23 History aspirin 81 mg tablet,delayed 81 mg PO DAILY 06/26/21 10/01/23 History release (Adult Aspirin Regimen) metformin 500 mg tablet,extended 500 - 1,000 mg PO TID 06/26/21 Unknown History release 24 hr Rollaler #1 ea 08/24/21 Unknown Rx Rollator #1 ea 08/24/21 Unknown Rx finasteride 5 mg tablet 5 mg PO DAILY 10/29/21 10/14/23 06:00 History tamsulosin 0.4 mg capsule (Flomax) 0.4 mg PO QHS 10/29/21 10/13/23 History buspirone 15 mg tablet 15 - 30 mg PO BID 02/15/22 10/14/23 06:00 History clopidogrel 75 mg tablet See Rx Instructions .Route 01/24/23 10/02/23 Rx .COMPLEX #90 tabs metoprolol tartrate 25 mg tablet 25 mg PO BID #60 tabs 05/24/23 10/14/23 06:00 Rx carbidopa 25 mg-levodopa 100 mg 2 tab PO .qid #240 tabs 09/13/23 10/14/23 06:00 Rx tablet (Sinemet) cholecalciferol (vitamin D3) 1,250 1,250 mcg PO QWEEK #4 caps 09/13/23 Unknown Rx mcg (50,000 unit) capsule fludrocortisone 0.1 mg tablet 0.1 mg PO MOTUWETHFRSA unknown 10/04/23 10/14/23 06:00 History ciprofloxacin HCl 500 mg tablet 500 mg PO BID #14 tabs 10/14/23 Unknown Rx (Cipro) Allergy/AdvReac Type Severity Reaction Status Date / Time Sulfa (Sulfonamide Allergy Hives Verified 09/13/23 11:32 Antibiotics) hydrocodone (From [place]) AdvReac Intermediate headache Verified 09/13/23 11:32 hydrocodone bitartrate (From AdvReac Nausea Verified 09/13/23 11:32 Vicodin) topiramate (From Topamax) AdvReac memory Verified 09/13/23 11:32 loss Family History Father Heart disease CHF (congestive heart failure) Grandmother Diabetes Grandfather Diabetes Surgical History (Updated 10/18/23 @ 10:[address] Mariluz Mg DO) S/P TURP History of coronary artery stent placement History of cardiac catheterization Presence of coronary angioplasty implant and graft (~01/28/21) History of colonoscopy History of bladder surgery History of appendectomy History of cholecystectomy History of colectomy History of ankle surgery Social History household members: spouse housing: house Smoking Status: Current every day smoker tobacco type: pipe Smokeless tobacco user: other second hand exposure: No alcohol intake: current alcohol intake frequency: holidays/special occasions only substance use type: does not use caffeine: Yes what type of physical activity do you participate in: none frequency: does not exercise [employer] seatbelt use: sometimes Lab / Micro Data 10/18/23 05:33 10/18/23 05:33 Labs: Laboratory Results - last 24 hr 10/17/23 18:50: WBC 5.6, RBC 5.35, Hgb 15.6, Hct 48.4, MCV 90.5, MCH 29.2, MCHC 32.2, RDW Std Deviation 45.0 H, RDW Coeff of Ranjit 13.8, Plt Count 225, MPV 8.5, Immature Gran % (Auto) 0.700, Neut % (Auto) 91.0 H, Lymph % (Auto) 5.5 L, [place] % (Auto) 1.4, Eos % (Auto) 0.5, Baso % (Auto) 0.9, Absolute Neuts (auto) 5.1, Absolute Lymphs (auto) 0.31 L, Nucleated RBC % 0.4, Differential Comment SEE COMMENT, Platelet Estimate ADEQUATE, RBC Morphology N CHROM, Anisocytosis RARE, Macrocytosis RARE, Sodium 136, Potassium 4.1, Chloride 104, Carbon Dioxide 19.0 L, Anion Gap 13, BUN 19 H, Creatinine 1.95 H, Estim Creat Clear Calc 32.34, Est GFR (MDRD) Af Amer 43 L, Est GFR (MDRD) Non-Af 35 L, BUN/Creatinine Ratio 9.7 L, Glucose 224 H, Lactic Acid 6.7 H*, Calcium 10.1, Total Bilirubin 1.00, AST 29, ALT 19, Alkaline Phosphatase 109, Troponin I High Sens 11, Total Protein 8.2, Albumin 3.8, Globulin 4.4 H, Albumin/Globulin Ratio 0.9 10/17/23 19:01: Urine Color Yellow, Urine Clarity Sl. Cloudy, Urine pH 6.0, Ur Specific [place] 1.010, Urine Protein 100 H, Urine Glucose (UA) 1000 H, Urine Ketones 15 H, Urine Occult Blood 250 H, Urine Nitrite Positive H, Urine Bilirubin Negative, Urine Urobilinogen Normal, Ur Leukocyte Esterase 100 H, Urine RBC 50-100 SEEN, Urine WBC 5-10 SEEN, Ur Squamous Epith Cells 0-5 SEEN, Urine Bacteria 1+, Urine Mucus 0 SEEN 10/17/23 23:08: Lactic Acid 4.9 H* 10/18/23 05:33: WBC 24.2 H, RBC 4.53 L, Hgb 13.6, Hct 40.8, MCV 90.1, MCH 30.0, MCHC 33.3, RDW Std Deviation 46.1 H, RDW Coeff of Ranjit 14.2, Plt Count 211, MPV 9.0, Immature Gran % (Auto) 1.400 H, Neut % (Auto) 80.1 H, Lymph % (Auto) 2.3 L, [place] % (Auto) 7.0, Eos % (Auto) 8.8 H, Baso % (Auto) 0.4, Absolute Neuts (auto) 19.4 H, Absolute Lymphs (auto) 0.55 L, Nucleated RBC % 0.1, Sodium 137, Potassium 4.4, Chloride 109 H, Carbon Dioxide 20.0 L, Anion Gap 8, BUN 24 H, Creatinine 1.62 H, Estim Creat Clear Calc 37.55, Est GFR (MDRD) Af Amer 53 L, Est GFR (MDRD) Non-Af 44 L, BUN/Creatinine Ratio 14.8, Glucose 212 H, Calcium 8.8 10/18/23 07:10: POC Glucose 174 H Micro: Microbiology 10/17/23 19:01 Urine, Clean Catch Urine Culture - Preliminary Gram negative amarilis 10/17/23 18:50 Blood Culture (Wb) - Anticubital Left Blood Culture - Preliminary 10/17/23 18:54 Blood Culture (Wb) - Anticubital Right Blood Culture - Preliminary 10/17/23 19:01 Mucosa - Nose SARS-CoV-2, Influenza & RSV (PCR) - Final Imaging Radiology Impression Brain CT 10/17/23 19:02 IMPRESSION: Chronic microvascular ischemic changes. No evidence of acute intracranial pathology. Electronically Signed: Clifton KimMiguel Angel Le DO at 20:19 EDT , Abdomen/Pelvis CT 10/17/23 19:05 IMPRESSION: 1. Chronic appearing although otherwise age-indeterminate compression fracture of L1 without retropulsion of the posterior cortex. Degenerative changes also in the spine. 2. Urinary bladder is decompressed. The wall appears thickened which is likely due to its decompressed state. Perivesicular edema may be indicative of infection. 3. Moderate amount of colorectal stool retention. No bowel obstruction. 4. Colonic diverticulosis without evidence of acute diverticulitis. Electronically Signed: Clifton KimMiguel Angel Le DO at 20:23 EDT , Chest X-Ray 10/17/23 20:10 IMPRESSION: 1. Borderline cardiomegaly and/or pericardial effusion. 2. Bibasilar pulmonary opacities may be atelectasis or pneumonia. Electronically Signed: Clifton KimMiguel Angel Le DO at 20:56 EDT ,
[2023-10-18 11:44] LABS: Differential Indicated MANUAL DIFF
[2023-10-18 11:49] LABS: Lymphocyte 2 % (19-41); Metamyelocyte 2 % (0-1); Monocyte 3 % (0-10); Neutrophil-Band 18 % (0-5); Neutrophil-Segmented 75 % (47-70); Total Cells Counted 100 (MANUAL DIFF)
[2023-10-18 11:51] LABS: Anisocytosis 1+; Red Cell Morphology NORM C+C NORMAL (NORM C&C)
[2023-10-18 11:52] LABS: Platelet Estimate ADEQUATE (ADEQ); Scan Smear per Review Criteria MANUAL DIFF; Toxic Granulation 1+
[2023-10-18] MEDS: Insulin Lispro 100 UNIT/ML INSULN.PEN SC ×2 (11:55→17:11)
[2023-10-18 12:51] LABS: Bedside Glucose 210 mg/dL (74-106)
[2023-10-18 14:23] LABS: Bedside Glucose 232 mg/dL (74-106)
[2023-10-18 14:44] VITALS: BP 96/56; PULSE 87; RESP 16; TEMP 36.6; O2SAT 94
[2023-10-18 14:59] LABS: Absolute Neutrophil Count 22.5 X10^3/uL (2.0-7.7)
[2023-10-18 15:00] LABS: Absolute Lymphocyte Count 0.48 X10^3/uL (0.83-4.51); Lymphocyte # 0.48 X10^3/ul (0.83-4.51)
[2023-10-18 18:09] LABS: Bedside Glucose 242 mg/dL (74-106)
[2023-10-18] MEDS: 0.9% Normal Saline (1000mL) 1,000 ML 70 ML IV (18:42)
[2023-10-18 20:24] VITALS: BP 129/71; PULSE 89; RESP 18; TEMP 36.9; O2SAT 96
[2023-10-18] MEDS: Tamsulosin HCl 0.4 MG Capsule PO (20:30)
[2023-10-18] MEDS: Atorvastatin Calcium 80 MG Tablet PO (20:30)
[2023-10-18] MEDS: Menthol/Lanolin/Calamine/Znox 113 GM Tube 1 APPLIC TOPICAL (20:31)
[2023-10-18] MEDS: busPIRone 15 MG TABLET 30 MG PO (20:31)
[2023-10-18] MEDS: INSULIN DEGLUDEC SC (21:46)
[2023-10-18] MEDS: [UNRECOGNIZED DRUG - OTHER] SC (21:46)
[2023-10-18 22:05] LABS: Bedside Glucose 217 mg/dL (74-106)
[2023-10-19] VITALS (7 sets, daily range): BP systolic 122–157; BP diastolic 68–80; PULSE 59–93; RESP 16; TEMP 36.1–36.7; O2SAT 94–100
[2023-10-19] MEDS: Carbidopa/Levodopa 25/100 Tablet PO ×4 (06:05→20:16)
[2023-10-19] MEDS: Insulin Lispro 100 UNIT/ML INSULN.PEN SC ×3 (06:06→17:25)
[2023-10-19] MEDS: Piperacil/Tazobactam 3.375 GM in 0.9% Normal Saline (50mL MB+) 50 ML IV ×3 (06:06→22:14)
[2023-10-19] MEDS: 0.9% Normal Saline (1000mL) 1,000 ML 70 ML IV ×2 (06:14→20:19)
[2023-10-19 06:38] LABS: Absolute Lymphocyte Count 0.76 X10^3/uL (0.83-4.51); Absolute Neutrophil Count 11.7 X10^3/uL (2.0-7.7); Basophil# 0.06 X10^3/uL; Basophil% 0.4 % (0-1); Eosinophil# 0.46 X10^3/uL; Eosinophils% 3.3 % (0-5); Hematocrit 38.2 % (40-54); Hemoglobin 12.9 g/dL (13.0-16.5); Lymphocyte # 0.76 X10^3/ul (0.83-4.51); Lymphocyte % 5.4 % (19-41); Mean Corp Hgb Conc 33.8 g/dL (32-36); Mean Corpuscular Hgb 29.7 pg (27.0-32.0); Monocyte# 0.89 X10^3/uL; Monocyte% 6.3 % (0-10); NRBC Flagged by Analyzer 0 % (0-5); Neutrophil # 11.74 X10^3/uL (2.7-7.7); Neutrophil % 83.7 % (47-70); Platelet Count 179 K/mm3 (150-450); RBC Distribution Width SD 45.1 fl (35.1-43.9); Red Blood Count 4.34 M/mm3 (4.6-6.2)
[2023-10-19 07:05] LABS: Anion Gap 10 (5-15); BUN 20 mg/dL (7-18); BUN/Creat Ratio 15.4 RATIO (10-20); Calcium,Total 8.6 mg/dL (8.5-10.1); Chloride 109 mmol/L (98-107); EST Glomerular Filtration Rate 56 mL/min (>60); Est Glom Filt Rate - Afr Amer 68 mL/min (>60); Estimated Creatinine Clearance 46.79 ml/min; Glucose 169 mg/dL (74-106); Potassium 3.4 mmol/L (3.5-5.1); Sodium Level 137 mmol/L (136-145)
[2023-10-19] MEDS: Aspirin E.C. 81 MG Tablet PO (07:44)
[2023-10-19] MEDS: Fludrocortisone Acetate 0.1 MG Tablet PO (07:44)
[2023-10-19 07:48] LABS: Bedside Glucose 167 mg/dL (74-106)
--- NOTE | 2023-10-19 08:14 | PCM.PN.HOSP ---
Reason for Visit Reason for Visit: Diagnoses Type 2 diabetes mellitus without complications (10/17/23) Hyperlipidemia, unspecified (10/17/23) Parkinson's disease (10/17/23) Essential (primary) hypertension (10/17/23) Urinary tract infection, site not specified (10/17/23) Altered mental status, unspecified (10/17/23) Fever, unspecified (10/17/23) Bacteremia (10/17/23) Subjective Subjective Feels well. Has no recollection of coming to the hospital. Objective Data Objective Data Vital Signs: Vital Signs Temp Pulse Resp BP Pulse Ox O2 Del Method O2 Flow Rate 36.7 C 84 16 137/80 H 94 Room Air 2 10/19/23 03:13 10/19/23 03:13 10/19/23 03:13 10/19/23 03:13 10/19/23 03:13 10/19/23 07:40 10/18/23 09:20 Oxygen Flow Rate (L/min) 2 Oxygen Delivery Method Room Air Weight: 84.5 kg Body Mass Index (BMI) 26.7 Intake & Output: Intake and Output for Last 24 Hours 10/17/23 10/18/23 10/19/23 23:59 23:59 23:59 Intake Total 1617.5 / 1617.5 2178.33 / 2178.33 1057.33 / 1057.33 Output Total 250 / 250 1750 / 1750 1150 / 1150 Balance 1367.5 / 1367.5 428.33 / 428.33 -92.67 / -92.67 Lab / Micro Data 10/19/23 05:50 10/19/23 05:50 Labs: Laboratory Results - last 24 hr 10/17/23 18:49: POC Glucose 232 H 10/18/23 05:33: WBC 24.2 H, RBC 4.53 L, Hgb 13.6, Hct 40.8, MCV 90.1, MCH 30.0, MCHC 33.3, RDW Std Deviation 46.1 H, RDW Coeff of Ranjit 14.2, Plt Count 211, MPV 9.0, Immature Gran % (Auto) MANAGER CONSUMER, Neut % (Auto) MANAGER CONSUMER, Lymph % (Auto) MANAGER CONSUMER, [place] % (Auto) MANAGER CONSUMER, Eos % (Auto) MANAGER CONSUMER, Baso % (Auto) MANAGER CONSUMER, Absolute Neuts (auto) 22.5 H, Absolute Lymphs (auto) 0.48 L, Total Counted 100, Neutrophils % (Manual) 75 H, Band Neutrophils % 18 H, Lymphocytes % (Manual) 2 L, Monocytes % (Manual) 3, Metamyelocytes % 2 H, Nucleated RBC % MANAGER CONSUMER, Diff Path Review May foll, Toxic Granulation 1+, Platelet Estimate ADEQUATE, RBC Morphology NORM C+C, Anisocytosis 1+ 10/18/23 11:50: POC Glucose 210 H 10/18/23 17:09: POC Glucose 242 H 10/18/23 21:44: POC Glucose 217 H 10/19/23 05:50: WBC 14.0 H, RBC 4.34 L, Hgb 12.9 L, Hct 38.2 L, MCV 88.0, MCH 29.7, MCHC 33.8, RDW Std Deviation 45.1 H, RDW Coeff of Ranjit 14.0, Plt Count 179, MPV 9.0, Immature Gran % (Auto) 0.900, Neut % (Auto) 83.7 H, Lymph % (Auto) 5.4 L, [place] % (Auto) 6.3, Eos % (Auto) 3.3, Baso % (Auto) 0.4, Absolute Neuts (auto) 11.7 H, Absolute Lymphs (auto) 0.76 L, Nucleated RBC % 0, Sodium 137, Potassium 3.4 L, Chloride 109 H, Carbon Dioxide 18.0 L, Anion Gap 10, BUN 20 H, Creatinine 1.30, Estim Creat Clear Calc 46.79, Est GFR (MDRD) Af Amer 68, Est GFR (MDRD) Non-Af 56 L, BUN/Creatinine Ratio 15.4, Glucose 169 H, Calcium 8.6 10/19/23 06:03: POC Glucose 167 H Micro: Microbiology 10/17/23 18:54 Blood Culture (Wb) - Anticubital Right Blood Culture - Preliminary Gram negative amarilis 10/17/23 18:50 Blood Culture (Wb) - Anticubital Left Blood Culture - Preliminary Gram negative amarilis 10/17/23 19:01 Urine, Clean Catch Urine Culture - Final Escherichia coli 10/17/23 19:01 Mucosa - Nose SARS-CoV-2, Influenza & RSV (PCR) - Final Physical Exam Const alert HEENT head/scalp atraumatic Resp normal respiratory effort Cardio regular rate, regular rhythm, S1 normal heart sound and S2 normal heart sound GI normal to inspection, nondistended, normoactive bowel sounds and soft to palpation Neuro Sensorium / Orientation: awake and alert Assessment & Plan Assessment/Plan (1) Gram-negative bacteremia: (2) Altered mental status: (3) Acute UTI: (4) Fever: PLAN: Plan Sepsis secondary to gram-negative bacteremia from urinary tract infection UCx showed E. coli pansensitive except cipro and levofloxacin. BCx showing GNR pip/tazo recommends discharging with catheter and follow-up in the office as outpatient. Patient had TURP on 10/13. Lactic acidosis -secondary to the above improving. no additional work up. Metabolic encephalopathy 2/2 sepsis. monitor Chronic conditions: CAD/HTN/HPL/ischemic cardiomyopathy-JOJO to pLAD 01/28/21-EF on last echo was 45%-Will continue fluids but decrease rate to 70 until p.o. intake is adequate then discontinue-Monitor closely for signs of volume overload-Continue home aspirin-Continue home Plavix-Hold home Farxiga-Hold losartan/metoprolol-Restart when blood pressure is normalized/stabilized-Continue home statin BPH with obstruction-Status post TURP 10/15/2023-Continue home Flomax parkinson's disease-Continue home carbidopa/levodopa DM-2-Hold home Farxiga/metformin-Continue home insulin-Add sliding scale add sliding scale-Switch diet from regular general to cardiac/carb controlled-Accuchecks as ordered Mild cognitive impairment-Per he does fairly well but does have some memory loss at baselineA-fib not on any medication for this Depression/Anxiety-cont Buspar-Cont Duloxetine DVT Prophylaxis: Lovenox 40 mg daily CODE STATUS-Listed as full code Discussed with the patient's at bedside. Disposition: Pending final culture results. Hopefully will have further information in the next 24 to 48 hours. Charges/Coding Visit Charges Inpatient E&M: 56791 Subs Hosp L2
[2023-10-19] MEDS: Enoxaparin 40 MG/0.4 ML Syringe SC (09:54)
[2023-10-19] MEDS: buPROPion (XL) 150 MG TABLET.XL PO (09:54)
[2023-10-19] MEDS: DULoxetine Hcl 60 MG Capsule PO (09:54)
[2023-10-19] MEDS: Menthol/Lanolin/Calamine/Znox 113 GM Tube 1 APPLIC TOPICAL ×2 (09:54→20:16)
[2023-10-19] MEDS: Clopidogrel Bisulfate 75 MG Tablet PO (09:54)
[2023-10-19] MEDS: busPIRone 15 MG TABLET PO (11:03)
--- NOTE | 2023-10-19 11:11 | CASEMGMT ---
Patient does not have a Healthcare Power of Public Health Epidemiologist or Healthcare Living Will. Per admission questions patient is not interested in documents. Felicity RAIN
[2023-10-19 11:43] LABS: Bedside Glucose 196 mg/dL (74-106)
[2023-10-19 17:48] LABS: Bedside Glucose 254 mg/dL (74-106)
[2023-10-19] MEDS: busPIRone 15 MG TABLET 30 MG PO (20:15)
[2023-10-19] MEDS: Atorvastatin Calcium 80 MG Tablet PO (20:16)
[2023-10-19] MEDS: Tamsulosin HCl 0.4 MG Capsule PO (20:16)
[2023-10-19] MEDS: [UNRECOGNIZED DRUG - OTHER] SC (20:18)
[2023-10-19] MEDS: INSULIN DEGLUDEC SC (20:18)
[2023-10-19 21:52] LABS: Bedside Glucose 268 mg/dL (74-106)
[2023-10-19] MEDS: 0.9% Saline Lock 10 ML Syringe IV (22:14)
[2023-10-20 03:00] VITALS: BP 162/85; PULSE 85; RESP 18; TEMP 36.1; O2SAT 96
[2023-10-20 04:45] LABS: Absolute Neutrophil Count 9.3 X10^3/uL (2.0-7.7); Basophil# 0.09 X10^3/uL; Basophil% 0.7 % (0-1); Eosinophil# 0.65 X10^3/uL; Eosinophils% 5.3 % (0-5); Hematocrit 37.3 % (40-54); Hemoglobin 12.8 g/dL (13.0-16.5); Mean Corp Hgb Conc 34.3 g/dL (32-36); Mean Corpuscular Hgb 29.6 pg (27.0-32.0); Mean Corpuscular Volume 86.3 fL (80-94); Mean Platelet Vol. 8.8 fl (6.2-12.0); Monocyte# 0.95 X10^3/uL; Monocyte% 7.7 % (0-10); NRBC Flagged by Analyzer 0 % (0-5); Neutrophil # 9.31 X10^3/uL (2.7-7.7); Neutrophil % 75.8 % (47-70); Platelet Count 198 K/mm3 (150-450); RBC Distribution Width CV 13.7 % (11.6-14.6); RBC Distribution Width SD 43.1 fl (35.1-43.9); Red Blood Count 4.32 M/mm3 (4.6-6.2); White Blood Count 12.3 K/mm3 (4.4-11.0)
[2023-10-20 05:00] VITALS: PULSE 78
[2023-10-20 05:07] LABS: Anion Gap 8 (5-15); BUN 12 mg/dL (7-18); BUN/Creat Ratio 10.6 RATIO (10-20); Calcium,Total 8.9 mg/dL (8.5-10.1); Chloride 109 mmol/L (98-107); Creatinine, Serum 1.13 mg/dL (0.70-1.30); EST Glomerular Filtration Rate 66 mL/min (>60); Est Glom Filt Rate - Afr Amer 80 mL/min (>60); Estimated Creatinine Clearance 53.83 ml/min; Glucose 178 mg/dL (74-106); Potassium 3.1 mmol/L (3.5-5.1); Sodium Level 138 mmol/L (136-145)
[2023-10-20] MEDS: Piperacil/Tazobactam 3.375 GM in 0.9% Normal Saline (50mL MB+) 50 ML IV (06:11)
[2023-10-20] MEDS: Insulin Lispro 100 UNIT/ML INSULN.PEN SC ×2 (06:11→11:41)
[2023-10-20] MEDS: Carbidopa/Levodopa 25/100 Tablet PO ×2 (06:12→11:41)
[2023-10-20 06:37] LABS: Bedside Glucose 174 mg/dL (74-106)
--- NOTE | 2023-10-20 07:20 | PN.HOSP_ITS ---
Reason for Visit Reason for Visit: Diagnoses Type 2 diabetes mellitus without complications (10/17/23) Hyperlipidemia, unspecified (10/17/23) Parkinson's disease (10/17/23) Essential (primary) hypertension (10/17/23) Urinary tract infection, site not specified (10/17/23) Altered mental status, unspecified (10/17/23) Fever, unspecified (10/17/23) Bacteremia (10/17/23) Subjective Subjective Feeling well. Ready to go home. Objective Data Objective Data Vital Signs: Vital Signs Temp Pulse Resp BP Pulse Ox O2 Del Method O2 Flow Rate 36.1 C L 78 18 162/85 H 96 Room Air 4 10/20/23 03:00 10/20/23 05:00 10/20/23 03:00 10/20/23 03:00 10/20/23 03:00 10/20/23 03:00 10/19/23 21:00 Oxygen Flow Rate (L/min) 4 Oxygen Delivery Method Room Air Weight: 84.5 kg Body Mass Index (BMI) 26.7 Intake & Output: Intake and Output for Last 24 Hours 10/18/23 10/19/23 10/20/23 23:59 23:59 23:59 Intake Total 2178.33 / 2178.33 2443.16 / 2543.16 250 / 250 Output Total 1750 / 1750 1775 / 2775 1200 / 1200 Balance 428.33 / 428.33 668.16 / -231.84 -950 / -950 Lab / Micro Data 10/20/23 04:07 10/20/23 04:07 Labs: Laboratory Results - last 24 hr 10/19/23 06:03: POC Glucose 167 H 10/19/23 11:08: POC Glucose 196 H 10/19/23 17:25: POC Glucose 254 H 10/19/23 20:12: POC Glucose 268 H 10/20/23 04:07: WBC 12.3 H, RBC 4.32 L, Hgb 12.8 L, Hct 37.3 L, MCV 86.3, MCH 29.6, MCHC 34.3, RDW Std Deviation 43.1, RDW Coeff of Ranjit 13.7, Plt Count 198, MPV 8.8, Immature Gran % (Auto) 1.500 H, Neut % (Auto) 75.8 H, Lymph % (Auto) 9.0 L, [place] % (Auto) 7.7, Eos % (Auto) 5.3 H, Baso % (Auto) 0.7, Absolute Neuts (auto) 9.3 H, Absolute Lymphs (auto) 1.10, Nucleated RBC % 0, Sodium 138, P otassium 3.1 L, Chloride 109 H, Carbon Dioxide 21.0, Anion Gap 8, BUN 12, Creatinine 1.13, Estim Creat Clear Calc 53.83, Est GFR (MDRD) Af Amer 80, Est GFR (MDRD) Non-Af 66, BUN/Creatinine Ratio 10.6, Glucose 178 H, Calcium 8.9 10/20/23 06:08: POC Glucose 174 H Micro: Microbiology 10/17/23 18:54 Blood Culture (Wb) - Anticubital Right Blood Culture - Preliminary Gram negative amarilis 10/17/23 18:50 Blood Culture (Wb) - Anticubital Left Blood Culture - Preliminary Gram negative amarilis 10/17/23 19:01 Urine, Clean Catch Urine Culture - Final Escherichia coli 10/17/23 19:01 Mucosa - Nose SARS-CoV-2, Influenza & RSV (PCR) - Final Physical Exam Const alert and no apparent distress HEENT head/scalp atraumatic and moist oral mucous membranes Resp normal respiratory effort, no retractions, no use of accessory muscles and clear to auscultation bilaterally Cardio regular rate, regular rhythm, S1 normal heart sound and S2 normal heart sound GI normal to inspection, nondistended, normoactive bowel sounds and soft to palpation Neuro Sensorium / Orientation: awake and alert Assessment & Plan Assessment/Plan (1) Gram-negative bacteremia: (2) Altered mental status: (3) Acute UTI: (4) Fever: PLAN: Plan Sepsis * secondary to gram-negative bacteremia from urinary tract infection * UCx and BCx showed E. coli pansensitive except cipro and levofloxacin. * change abx to amoxicillin/clavulanic acid * recommends discharging with catheter and follow-up in the office as outpatient. * Patient had TURP on 10/13. Lactic acidosis * secondary to the above * improving. no additional work up. Metabolic encephalopathy * improving * 2/2 sepsis, UTI, bacteremia.. * monitor Chronic conditions: * CAD/HTN/HPL/ischemic cardiomyopathy-JOJO to pLAD 01/28/21-EF on last echo was 45%-Will continue fluids but decrease rate to 70 until p.o. 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 Discussed with patient's family at bedside.
[2023-10-20 09:11] VITALS: BP 132/92; PULSE 98; RESP 18; TEMP 36.9; O2SAT 94
[2023-10-20] MEDS: Fludrocortisone Acetate 0.1 MG Tablet PO (09:14)
[2023-10-20] MEDS: busPIRone 15 MG TABLET PO (09:14)
[2023-10-20] MEDS: DULoxetine Hcl 60 MG Capsule PO (09:14)
[2023-10-20] MEDS: Menthol/Lanolin/Calamine/Znox 113 GM Tube 1 APPLIC TOPICAL (09:15)
[2023-10-20] MEDS: Aspirin E.C. 81 MG Tablet PO (09:15)
[2023-10-20] MEDS: Clopidogrel Bisulfate 75 MG Tablet PO (09:15)
[2023-10-20] MEDS: buPROPion (XL) 150 MG TABLET.XL PO (09:15)
[2023-10-20] MEDS: Enoxaparin 40 MG/0.4 ML Syringe SC (09:15)
--- NOTE | 2023-10-20 10:57 | DS.PCM_ITS ---
Providers Date of Admission: 10/17/23 Primary Care Physician: Dr. Kelly Vargas, DO Consultations 10/18/23 10:30 Consult: Urology Routine Consulting Provider: Emmanuel Valverde Reason for Consult: Sepsis following TURP EMERGENT Consult: No MD Notified: Yes Date Notified: 10/18/23 Time Notified: 10:44 Method of Notification: Verbal Reason For Visit: ALTERED MENTAL STATUS, UTI Diagnosis Discharge Diagnosis (1) Gram-negative bacteremia: Status: Acute Code(s): R78.81 - Bacteremia (2) Altered mental status: Status: Acute Code(s): R41.82 - Altered mental status, unspecified (3) Acute UTI: Status: Acute Code(s): N39.0 - Urinary tract infection, site not specified (4) Fever: Status: Acute Code(s): R50.9 - Fever, unspecified Plan Sepsis * secondary to gram-negative bacteremia from urinary tract infection * UCx and BCx showed E. coli pansensitive except cipro and levofloxacin. * change abx to amoxicillin/clavulanic acid * recommends discharging with catheter and follow-up in the office as outpatient. * Patient had TURP on 10/13. Lactic acidosis * secondary to the above * improving. no additional work up. Metabolic encephalopathy * improving * 2/2 sepsis, UTI, bacteremia.. * monitor Chronic conditions: * CAD/HTN/HPL/ischemic cardiomyopathy-JOJO to pLAD 01/28/21-EF on last echo was 45%-Will continue fluids but decrease rate to 70 until p.o. 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 Discussed with patient's family at bedside. Medications at Discharge Home Medications duloxetine 60 mg capsule,delayed release 60 mg PO DAILY 02/03/15 bupropion HCl 150 mg 24 hr tablet, extended release 150 mg PO DAILY 10/04/19 insulin degludec 100 unit-liraglutide 3.6 mg/mL(3 mL) subcutaneous pen 36 unit SQ QHS diabetic 10/04/19 rosuvastatin 40 mg tablet 40 mg PO DAILY unknown 10/28/20 dapagliflozin propanediol 10 mg tablet (Farxiga) 10 mg PO DAILY 01/28/21 losartan 50 mg tablet 50 mg PO QHS 01/28/21 aspirin 81 mg tablet,delayed release (Adult Aspirin Regimen) 81 mg PO DAILY 06/26/21 metformin 500 mg tablet,extended release 24 hr 500 - 1,000 mg PO TID 06/26/21 Rollaler #1 ea 08/24/21 Rollator #1 ea 08/24/21 finasteride 5 mg tablet 5 mg PO DAILY 10/29/21 tamsulosin 0.4 mg capsule (Flomax) 0.4 mg PO QHS 10/29/21 buspirone 15 mg tablet 15 - 30 mg PO BID 02/15/22 clopidogrel 75 mg tablet See Rx Instructions .Route .COMPLEX #90 tabs 01/24/23 metoprolol tartrate 25 mg tablet 25 mg PO BID #60 tabs 05/24/23 carbidopa 25 mg-levodopa 100 mg tablet (Sinemet) 2 tab PO .qid #240 tabs 09/13/23 cholecalciferol (vitamin D3) 1,250 mcg (50,000 unit) capsule 1,250 mcg PO QWEEK #4 caps 09/13/23 fludrocortisone 0.1 mg tablet 0.1 mg PO MOTUWETHFRSA unknown 10/04/23 amoxicillin 875 mg-potassium clavulanate 125 mg tablet 1 tab PO Q12H #20 tabs 10/20/23 Hospital Course Operations None Procedures None Summary of Care Provided Minutes Spent on Discharge: 32 Hospital Course: 78-year-old male who recently underwent a transurethral resection of the prostate on the presents on the with sepsis. Patient was found to have urinary tract infection and subsequent found to have bacteremia. Cultures showed E. coli that was pansensitive with exception of floroquinolones. Patient will be discharged with a 10-day course of amoxicillin/clavulanic acid. Patient was seen by urology who recommends outpatient follow-up but also to continue with his Rosa catheter until he follows up with Dr. Strange. Weight / BMI Weight Weight: 84.5 kg Body Mass Index (BMI) 26.7 ABG / Lab / Microbiology Data 10/20/23 04:07 10/20/23 04:07 Laboratory: Laboratory Results - last 24 hr 10/19/23 11:08: POC Glucose 196 H 10/19/23 17:25: POC Glucose 254 H 10/19/23 20:12: POC Glucose 268 H 10/20/23 04:07: WBC 12.3 H, RBC 4.32 L, Hgb 12.8 L, Hct 37.3 L, MCV 86.3, MCH 29.6, MCHC 34.3, RDW Std Deviation 43.1, RDW Coeff of Ranjit 13.7, Plt Count 198, MPV 8.8, Immature Gran % (Auto) 1.500 H, Neut % (Auto) 75.8 H, Lymph % (Auto) 9.0 L, [place] % (Auto) 7.7, Eos % (Auto) 5.3 H, Baso % (Auto) 0.7, Absolute Neuts (auto) 9.3 H, Absolute Lymphs (auto) 1.10, Nucleated RBC % 0, Sodium 138, P otassium 3.1 L, Chloride 109 H, Carbon Dioxide 21.0, Anion Gap 8, BUN 12, Creatinine 1.13, Estim Creat Clear Calc 53.83, Est GFR (MDRD) Af Amer 80, Est GFR (MDRD) Non-Af 66, BUN/Creatinine Ratio 10.6, Glucose 178 H, Calcium 8.9 10/20/23 06:08: POC Glucose 174 H Microbiology: Microbiology 10/17/23 18:54 Blood Culture (Wb) - Anticubital Right Blood Culture - Final Gram negative amarilis 10/17/23 18:50 Blood Culture (Wb) - Anticubital Left Blood Culture - Final Escherichia coli 10/17/23 19:01 Urine, Clean Catch Urine Culture - Final Escherichia coli 10/17/23 19:01 Mucosa - Nose SARS-CoV-2, Influenza & RSV (PCR) - Final D/C Instructions Discharge Diet: 2000 Calorie Control Diet Meaningful Use Info Meaningful Use Meaningful Use Diagnoses (Choose all that apply): None applicable Ischemic Stroke Statin Dosing Therapy Reference: STATIN DOSE THERAPY REFERENCE: * Patients > 75 years receive moderate or high dose statin therapy. * Patients 75 years or YOUNGER should receive HIGH intensity statin dose unless contraindicated. You will be required to document reason for non-treatment if statin daily dose does not meet guidelines. HIGH DOSE STATIN THERAPY DAILY Atorvastatin > than or = to 40 mg Rosuvastatin > than or = to 20 mg Amlodipine + Atorvastatin > than or = to 2.5/40 mg Ezetimibe + Simvastatin 10/80 mg Simvastatin 80mg Discharge Plan Admission Admit Date/Time: 10/17/23 21:04 Primary Reason for Your Visit: Sepsis. UTI. Bacteremia. Attending Provider: Raheel Basurto Primary Care Provider: Kelly Vargas Consulting Providers: Jonathan Ruiz; Emmanuel Valverde; Mariluz Mg Discharge Orders/Prescriptions Prescriptions: New amoxicillin-pot clavulanate 875-125 mg tablet 1 tab PO Q12H Qty: 20 0RF Continued rosuvastatin 40 mg tablet 40 mg PO DAILY Patient Comments: Take 1 tablet by mouth daily aspirin [Adult Aspirin Regimen] 81 mg tablet,delayed release (DR/EC) 81 mg PO DAILY tamsulosin [Flomax] 0.4 mg capsule 0.4 mg PO QHS finasteride 5 mg tablet 5 mg PO DAILY cholecalciferol (vitamin D3) 1,250 mcg (50,000 unit) capsule 1,250 mcg PO QWEEK Qty: 4 6RF carbidopa-levodopa [Sinemet] 25-100 mg tablet 2 tab PO .qid Qty: 240 6RF duloxetine 60 MG capsule 60 mg PO DAILY insulin degludec-liraglutide 3 ML insulin pen 36 unit SQ QHS bupropion HCl 150 MG tablet extended release 24 hr 150 mg PO DAILY buspirone 15 mg tablet 15 - 30 mg PO BID Rx Instructions: 1 TAB AM, 2 TABS QHS losartan 50 mg Tablet 50 mg PO QHS dapagliflozin propanediol [Farxiga] 10 mg Tablet 10 mg PO DAILY metformin 500 mg tablet extended release 24 hr 500 - 1,000 mg PO TID Rx Instructions: 2 at Breakfast, 1 at Lunch, 2 at Dinner fludrocortisone 0.1 mg tablet 0.1 mg PO MOTUWETHFRSA (DME) Rollaler See Rx Instructions .Route .MEDSUPPLY Qty: 1 0RF Rx Instructions: As directed (DME) Rollator See Rx Instructions .Route .MEDSUPPLY Qty: 1 0RF Rx Instructions: ICD 10: Parkinson's disease (G20), 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) clopidogrel 75 mg tablet See Rx Instructions .ROUTE .COMPLEX Qty: 90 3RF Dose Instruction: TAKE 1 TABLET BY MOUTH DAILY Rx Instructions: TAKE 1 TABLET BY MOUTH DAILY metoprolol tartrate 25 mg tablet 25 mg PO BID Qty: 60 11RF Discontinued ciprofloxacin HCl [Cipro] 500 mg tablet 500 mg PO BID Qty: 14 0RF Referrals / Follow Up: Emmanuel Valverde MD [Med Staff - Active Staff] - Within 1 Week Kelly Vargas DO [Primary Care Provider] - Within 2 Weeks Disposition Disposition (needs filled in before D/C Order can be placed): Home, Self Care Charges/Coding Visit Charges Inpatient E&M: 76559 Disch Hosp >30min
[2023-10-20] MEDS: Ceftriaxone 1 GM/50 ML BAG IV (11:41)
--- NOTE | 2023-10-20 11:58 | PHA.DC_ITS ---
Pharmacy [facility] has performed discharge medication reconciliation and counseling for this patient. The patient's discharge medication list was reviewed for discrepancies and discrepancies were resolved. The patient was counseled on the following discharge medications and changes in medications for homegoing were reviewed. 1. AUGMENTIN The Reason for Use, instructions for use, and potential side effects were reviewed for all new medications. The patient's questions regarding all of their medications were answered. The patient was able to verbally demonstrate an understanding of their discharge medications. The patient was counselled by Paty Ramos PharmD Candidate Medications at Discharge Home Medications duloxetine 60 mg capsule,delayed release 60 mg PO DAILY depression 02/03/15 bupropion HCl 150 mg 24 hr tablet, extended release 150 mg PO DAILY antidepressant 10/04/19 insulin degludec 100 unit-liraglutide 3.6 mg/mL(3 mL) subcutaneous pen 36 unit SQ QHS diabetic 10/04/19 rosuvastatin 40 mg tablet 40 mg PO DAILY cholesterol 10/28/20 dapagliflozin propanediol 10 mg tablet (Farxiga) 10 mg PO DAILY diabetes 01/28/21 losartan 50 mg tablet 50 mg PO QHS blood pressure 01/28/21 aspirin 81 mg tablet,delayed release (Adult Aspirin Regimen) 81 mg PO DAILY heart health 06/26/21 metformin 500 mg tablet,extended release 24 hr 500 - 1,000 mg PO TID diabetes 06/26/21 Rollaler #1 ea 08/24/21 Rollator #1 ea 08/24/21 finasteride 5 mg tablet 5 mg PO DAILY prostate 10/29/21 tamsulosin 0.4 mg capsule (Flomax) 0.4 mg PO QHS prostate 10/29/21 buspirone 15 mg tablet 15 - 30 mg PO BID anxiety 02/15/22 clopidogrel 75 mg tablet See Rx Instructions .Route .COMPLEX antiplatelet #90 tabs 01/24/23 metoprolol tartrate 25 mg tablet 25 mg PO BID blood pressure #60 tabs 05/24/23 carbidopa 25 mg-levodopa 100 mg tablet (Sinemet) 2 tab PO .qid parkinson's #240 tabs 09/13/23 cholecalciferol (vitamin D3) 1,250 mcg (50,000 unit) capsule 1,250 mcg PO QWEEK supplement #4 caps 09/13/23 fludrocortisone 0.1 mg tablet 0.1 mg PO AVRILUWETHJAKE adrenal insufficiency 10/04/23 amoxicillin 875 mg-potassium clavulanate 125 mg tablet 1 tab PO Q12H #20 tabs 10/20/23
[2023-10-20 12:04] LABS: Bedside Glucose 282 mg/dL (74-106)
--- NOTE | 2023-10-20 12:17 | CASEMGMT ---
Patient has order for discharge. RN CM in to discuss needs at discharge, at bedside. Patient is ambulating SBA in room. Patient and deny needs or help at discharge. Patient and had no further questions or concerns.
[2023-10-20 14:20] LABS: Pathologist Review Reviewed
== END 2023-10-20 13:20 | disposition home or self-care (01) | DRG 856 ==
LOC: ED 20:49 → PCU 21:43
PROVIDERS: Internal Medicine; Admitting Provider Family Medicine; Emergency Provider Emergency Medicine; PCP Internal Medicine
DX: T81.44XA Sepsis following a procedure, initial encounter (principal); A41.50 Gram-negative sepsis, unspecified; G93.41 Metabolic encephalopathy; I42.9 Cardiomyopathy, unspecified; E87.20 Acidosis, unspecified; N39.0 Urinary tract infection, site not specified; N13.8 Other obstructive and reflux uropathy; E11.22 Type 2 diabetes mellitus with diabetic chronic kidney disease; B96.20 Unspecified Escherichia coli [E. coli] as the cause of diseases classified elsewhere; E11.65 Type 2 diabetes mellitus with hyperglycemia; E11.40 Type 2 diabetes mellitus with diabetic neuropathy, unspecified; I48.91 Unspecified atrial fibrillation; G20.C Parkinsonism, unspecified; I10 Essential (primary) hypertension; I25.10 Atherosclerotic heart disease of native coronary artery without angina pectoris; E78.5 Hyperlipidemia, unspecified; F17.220 Nicotine dependence, chewing tobacco, uncomplicated; I25.5 Ischemic cardiomyopathy; E55.9 Vitamin D deficiency, unspecified; I25.2 Old myocardial infarction; Z95.5 Presence of coronary angioplasty implant and graft; R41.82 Altered mental status, unspecified; Z79.02 Long term (current) use of antithrombotics/antiplatelets; Z79.84 Long term (current) use of oral hypoglycemic drugs; Z79.82 Long term (current) use of aspirin; N40.1 Benign prostatic hyperplasia with lower urinary tract symptoms
CPT/HCPCS: 36415; 70450; 71045; 74177; 80048; 80053; 81001; 82962; 83036; 83605; 84484; 85025; 85027; 87040; 87077; 87086; 87088; 87186; 87631; 88305; 93005; 94668; 97162; 99285; 99406; J7030; J7120; Q9967; A4216; J0744

== ENCOUNTER 2024-01-06 10:57 | Observation (INO) | payer MEDICARE, SELFPAY ==
[2021-04-01 08:35] VITALS: BMI 32.3
[2024-01-06] VITALS (12 sets, daily range): BP systolic 103–165; BP diastolic 67–109; PULSE 74–94; RESP 16–24; TEMP 36.5–37; O2SAT 94–98; BMI 26.3; BMI 30.4
--- NOTE | 2024-01-06 11:23 | EKG12_ITS ---
Test Reason : Blood Pressure : / mmHG Vent. Rate : 087 BPM Atrial Rate : 087 BPM P-R Int : 230 ms QRS Dur : 072 ms QT Int : 332 ms P-R-T Axes : -21 -19 082 degrees QTc Int : 399 ms Sinus rhythm with sinus arrhythmia with 1st degree A-V block Inferior infarct , age undetermined Abnormal ECG Confirmed by Ralph Conti ([id number]), assistant editor LIZBETH CARIAS ([id number]) on 01/09/2024 11:10:58 AM Referred By: Confirmed By:Ralph Conti
--- NOTE | 2024-01-06 11:50 | RAD_ITS ---
INDICATION: weakness EXAMINATION/TECHNIQUE: X-RAY - XR Chest 1 View COMPARISON: Prior study dated: 10/17/2023 FINDINGS: LINES/DEVICES: None. LUNGS: No consolidation, edema or effusion. No pneumothorax. MEDIASTINUM AND CARDIOVASCULAR STRUCTURES: Cardiac silhouette not enlarged. Central airways and mediastinal contour are unremarkable. BONES AND SOFT TISSUES: Unremarkable. RAD/Chest 1 View (Portable) IMPRESSION: No radiographic evidence of acute cardiopulmonary disease. Electronically Signed: Wenceslao Adkins MD at 12:05 EDT ,
[2024-01-06 12:36] LABS: Absolute Lymphocyte Count 1.21 X10^3/uL (0.83-4.51); Absolute Neutrophil Count 15.4 X10^3/uL (2.0-7.7); Basophil# 0.08 X10^3/uL; Basophil% 0.4 % (0-1); Eosinophil# 0.02 X10^3/uL; Eosinophils% 0.1 % (0-5); Hematocrit 46.6 % (40-54); Hemoglobin 15.1 g/dL (13.0-16.5); Lymphocyte # 1.21 X10^3/ul (0.83-4.51); Lymphocyte % 6.6 % (19-41); Mean Corp Hgb Conc 32.4 g/dL (32-36); Mean Corpuscular Volume 89.6 fL (80-94); Mean Platelet Vol. 8.8 fl (6.2-12.0); Monocyte# 1.46 X10^3/uL; Monocyte% 7.9 % (0-10); NRBC Flagged by Analyzer 0 % (0-5); Neutrophil # 15.44 X10^3/uL (2.7-7.7); Platelet Count 300 K/mm3 (150-450); RBC Distribution Width CV 14.2 % (11.6-14.6); RBC Distribution Width SD 46.3 fl (35.1-43.9); White Blood Count 18.4 K/mm3 (4.4-11.0)
[2024-01-06 12:47] LABS: International Normalized Ratio 1.1; Prothrombin Time (Protime)PT. 14.5 SECONDS (11.7-14.9)
[2024-01-06 12:49] LABS: Partial Thromboplast Time 29.8 Seconds (24.1-36.2)
[2024-01-06 12:57] LABS: ALB/GLOB Ratio 0.8 RATIO (0.9-2.4); AST(SGOT) 12 U/L (15-37); Alanine Aminotransfer ALT/SGPT 16 U/L (16-61); Albumin, Serum 3.7 g/dL (3.2-5.0); Alkaline Phosphatase 89 U/L (45-117); Anion Gap 9 (5-15); BUN 19 mg/dL (7-18); BUN/Creat Ratio 11.6 RATIO (10-20); Calcium,Total 10.5 mg/dL (8.5-10.1); Chloride 105 mmol/L (98-107); Creatinine, Serum 1.64 mg/dL (0.70-1.30); EST Glomerular Filtration Rate 43 mL/min (>60); Est Glom Filt Rate - Afr Amer 52 mL/min (>60); Estimated Creatinine Clearance 37.09 ml/min; Globulin 4.9 g/dL (2.2-4.2); Glucose 207 mg/dL (74-106); Potassium 4.2 mmol/L (3.5-5.1); Protein, Total 8.6 g/dL (6.4-8.2); Sodium Level 137 mmol/L (136-145); Troponin-I HS 6 pg/mL (3.0-78.0)
[2024-01-06 13:06] LABS: Lactic Acid 3.1 mmol/L (0.4-1.9)
[2024-01-06] MEDS: Ceftriaxone 1 GM/50 ML BAG IV (13:49)
[2024-01-06] MEDS: 0.9% Normal Saline (1000mL) 1,000 ML 999 ML IV ×3 (13:49→18:03)
[2024-01-06 14:29] LABS: Mucous, Urine 0 SEEN /hpf (<or=2+); Squamous Epithelial Cells - UA 0 SEEN /hpf (0-5)
[2024-01-06 14:30] LABS: Color, Urine Yellow (Yellow); Glucose, Dipstick 1000 mg/dl (Normal); Ketone-Dipstick 5 mg/dl (Negative); Leukocyte Esterase-Dipstick 100 /ul (Negative); Nitrite-Dipstick Positive (Negative); Occult Blood-Urine 150 /ul (Negative); Protein-Dipstick 30 mg/dl (Negative); Specific Gravity, Urine 1.015 (1.002-1.030); Urine Bilirubin Dipstick Negative (Negative); Urine Clarity Sl. Cloudy (Clear); Urine Urobilinogen Normal (Normal)
[2024-01-06 14:44] LABS: Bacteria 2+ /hpf (None Seen); Red Blood Cells-Urine 0-5 SEEN /hpf (0-5); White Blood Cells 10-25 SEEN /hpf (0-5)
--- NOTE | 2024-01-06 15:07 | EX.ED.DYSGE1 ---
HPI History of Present Illness Chief Complaint: Weakness Narrative Narrative: Patient is a 78-year-old male past medical history of Parkinson's disease, JOAQUIM, anxiety, chronic kidney disease, hypertension, diabetes who presented to the emergency department with a chief complaint of generalized weakness. According to the patient's at bedside he has been coming more weak the past 2 days and she states that he had to have significant help today getting to the toilet. Patient at bedside noted that he had a urinary tract infection in the past and had very similar symptoms therefore she is concerned that he has a UTI here today. [facility] Medical History Orthostatic hypotension Mild cognitive impairment Parkinson's disease Polyneuropathy BMI 29.0-29.9,adult JOAQUIM (obstructive sleep apnea) Hypersomnolence Incisional hernia History of echocardiogram Wears hearing aid Loss of hearing Wears glasses Anxiety History of steroid therapy Cancer Bladder disease Prostate disease High cholesterol Dietary restriction History of IBS Shortness of breath on exertion Smoker Cardiology follow-up encounter History of irregular heartbeat History of heart attack Fall Carcinoma in situ of skin, unspecified Poorly controlled diabetes mellitus Hypoglycemia Vitamin D deficiency Morbid obesity Hypercholesterolemia Metabolic syndrome Insomnia Neuropathy Hypertensive chronic kidney disease with stage 1 through stage 4 chronic kidney disease, or unspecified chronic kidney disease CAD (coronary artery disease) Chronic sinusitis Osteoarthritis Olecranon bursitis of left elbow Tremor Poor balance Altered mental status Other proteinuria Microalbuminuria Cardiomyopathy, ischemic Presence of stent in coronary artery (~01/28/21) Atherosclerotic heart disease of [place] coronary artery without angina pectoris Depression Fatigue Diarrhea History of colon cancer Multiple adenomatous polyps History of bladder cancer Tobacco abuse Burn of thigh Wound, open, hip or thigh Burn of thigh, left, second degree Cellulitis of right anterior lower leg Cellulitis of right lower extremity Reflex sympathetic dystrophy of right leg Sepsis BPH (benign prostatic hyperplasia) Hyperlipemia Type II diabetes mellitus Hypertension Home Medications ?Medication ?Instructions ?Recorded ?Last Taken ?Type duloxetine 60 mg capsule,delayed 60 mg PO DAILY depression 02/03/15 Unknown History release bupropion HCl 150 mg 24 hr tablet, 150 mg PO DAILY antidepressant 10/04/19 10/14/23 06:00 History extended release insulin degludec 100 36 unit SQ QHS diabetic 10/04/19 10/13/23 History unit-liraglutide 3.6 mg/mL(3 mL) subcutaneous pen rosuvastatin 40 mg tablet 40 mg PO DAILY cholesterol 10/28/20 Unknown History dapagliflozin propanediol 10 mg 10 mg PO DAILY diabetes 01/28/21 Unknown History tablet (Farxiga) losartan 50 mg tablet 50 mg PO QHS blood pressure 01/28/21 10/13/23 History aspirin 81 mg tablet,delayed 81 mg PO DAILY heart health 06/26/21 10/01/23 History release (Adult Aspirin Regimen) metformin 500 mg tablet,extended 500 - 1,000 mg PO TID diabetes 06/26/21 Unknown History release 24 hr Rollaler #1 ea 08/24/21 Unknown Rx Rollator #1 ea 08/24/21 Unknown Rx finasteride 5 mg tablet 5 mg PO DAILY prostate 10/29/21 10/14/23 06:00 History tamsulosin 0.4 mg capsule (Flomax) 0.4 mg PO QHS prostate 10/29/21 10/13/23 History buspirone 15 mg tablet 15 - 30 mg PO BID anxiety 02/15/22 10/14/23 06:00 History clopidogrel 75 mg tablet See Rx Instructions .Route 01/24/23 10/02/23 Rx .COMPLEX antiplatelet #90 tabs metoprolol tartrate 25 mg tablet 25 mg PO BID blood pressure #60 05/24/23 10/14/23 06:00 Rx tabs carbidopa 25 mg-levodopa 100 mg 2 tab PO .qid parkinson's #240 tabs 09/13/23 10/14/23 06:00 Rx tablet (Sinemet) cholecalciferol (vitamin D3) 1,250 1,250 mcg PO QWEEK supplement #4 09/13/23 Unknown Rx mcg (50,000 unit) capsule caps fludrocortisone 0.1 mg tablet 0.1 mg PO MOTUWETHFRSA adrenal 10/04/23 10/14/23 06:00 History insufficiency amoxicillin 875 mg-potassium 1 tab PO Q12H #20 tabs 10/20/23 Unknown Rx clavulanate 125 mg tablet Allergy/AdvReac Type Severity Reaction Status Date / Time Sulfa (Sulfonamide Allergy Hives Verified 01/06/24 10:58 Antibiotics) hydrocodone (From [place]) AdvReac Intermediate headache Verified 01/06/24 10:58 hydrocodone bitartrate (From AdvReac Nausea Verified 01/06/24 10:58 Vicodin) topiramate (From Topamax) AdvReac memory Verified 01/06/24 10:58 loss Family History Father Heart disease CHF (congestive heart failure) Grandmother Diabetes Grandfather Diabetes Surgical History S/P skin cancer resection S/P TURP History of coronary artery stent placement History of cardiac catheterization Presence of coronary angioplasty implant and graft (~01/28/21) History of colonoscopy History of bladder surgery History of appendectomy History of cholecystectomy History of colectomy History of ankle surgery Social History household members: spouse housing: house Smoking Status: Current every day smoker tobacco type: pipe Smokeless tobacco user: other second hand exposure: No alcohol intake: current alcohol intake frequency: holidays/special occasions only substance use type: does not use caffeine: Yes what type of physical activity do you participate in: none frequency: does not exercise jacob/adventism: [employer] seatbelt use: sometimes ROS ROS ED ROS Narrative Constitutional: Denies any fevers, chills, headaches, lightheadedness, dizziness Eyes: Denies double vision blurry vision change in vision Cardiovascular: Denies chest pain or palpitations Respiratory: Denies coughing wheezing shortness of breath Abdomen: Denies abdominal pain nausea vomit diarrhea : Denies any painful induration, hematuria or polyuria Neurological: Complains of generalized weakness as noted above Musculoskeletal: Denies back pain Skin: Denies rashes or lesions EXAM Physical Exam Narrative Exam Narrative: General: Patient was lying in bed rest comfortably did not appear to be in acute distress Head: Atraumatic, normocephalic Eyes: PERRL bilateral, EOMI bilaterally, no conjunctival injection noted Neck: Soft, supple, trachea midline Cardiovascular: Regular rate and rhythm no murmurs gallops rubs noted Respiratory: Clear to auscultation bilaterally no rales rhonchi wheeze noted Abdomen: Soft, nondistended, no tenderness palpation, bowel sounds present x 4, patient has hernia noted on exam but is easily very reducible is still been there for years they state Extremities: +4/5 strength noted in the bilateral upper and lower extremities, radial pulses +2/4 in the bilateral lower extremities, Neurological: Patient following commands and that he is at [facility] year is 2023 Skin: Warm, dry, tact Const Vital Signs: 01/06/24 10:58 01/06/24 11:01 01/06/24 11:01 Temperature 98.5 F 98.6 F Temperature Source Oral Oral Pulse Rate 93 94 Respiratory Rate 18 18 Respiratory Effort Normal Respiratory Pattern Normal Blood Pressure 136/67 H 109/72 Blood Pressure Mean 90 84 Pulse Ox 95 97 Oxygen Delivery Method Room Air Room Air 01/06/24 11:23 01/06/24 12:01 01/06/24 13:01 Temperature 97.7 F L 97.7 F L Temperature Source Temporal Temporal Pulse Rate 92 88 Respiratory Rate 22 H 16 Respiratory Effort Respiratory Pattern Blood Pressure 117/68 126/92 H Blood Pressure Mean 84 103 Pulse Ox 96 96 94 Oxygen Delivery Method Room Air Room Air Room Air 01/06/24 13:28 01/06/24 15:00 Temperature 98.1 F Temperature Source Oral Pulse Rate 74 87 Respiratory Rate 16 24 H Respiratory Effort Respiratory Pattern Blood Pressure 103/85 H 131/79 H Blood Pressure Mean 91 96 Pulse Ox 94 Oxygen Delivery Method Room Air MDM MDM MDM Narrative Medical decision making narrative: Patient is a 78-year-old male who presented to the emergency department chief complaint of generalized weakness and concern for urinary tract infection. Patient will have a workup performed here on the differential diagnose includes but not limited to ACS, UTI, COVID. Once workup is obtained and reviewed he will be reevaluated. Patient be given IV fluids 30 cc/kg bolus. Once workup is obtained reviewed he will be reevaluated. Patient CBC was significant leukocytosis of 18,000, hemoglobin noted be 15.1, platelet count normal at 300. Patient's sodium normal 137, potassium normal 4.2, creatinine elevated to 1.64. Patient's lactic acid was elevated 3.1 this will be repeated after IV fluids. Patient AST and ALT were 12 and 16 respectively. Patient's urinalysis was significant for urinary tract infection with positive nitrates, 100 leukocyte esterase, 10-25 white blood cells seen +2 bacteria noted. This was sent for culture he was given a gram Rocephin. Patient case discussed with hospitalist Dr. Moreno who will accept patient for admission. Patient was notified with all question concerns answered bedside. Lab Data Labs: Laboratory Results - last 24 hr 01/06/24 01/06/24 11:39 12:01 WBC 18.4 H RBC 5.20 Hgb 15.1 Hct 46.6 MCV 89.6 MCH 29.0 MCHC 32.4 RDW Std Deviation 46.3 H RDW Coeff of Ranjit 14.2 Plt Count 300 MPV 8.8 Immature Gran % (Auto) 1.000 H Neut % (Auto) 84.0 H Lymph % (Auto) 6.6 L [place] % (Auto) 7.9 Eos % (Auto) 0.1 Baso % (Auto) 0.4 Absolute Neuts (auto) 15.4 H Absolute Lymphs (auto) 1.21 Nucleated RBC % 0 PT 14.5 INR 1.1 APTT 29.8 Sodium 137 Potassium 4.2 Chloride 105 Carbon Dioxide 23.0 Anion Gap 9 BUN 19 H Creatinine 1.64 H Estim Creat Clear Calc 37.09 Est GFR (MDRD) Af Amer 52 L Est GFR (MDRD) Non-Af 43 L BUN/Creatinine Ratio 11.6 Glucose 207 H Lactic Acid 3.1 H* Calcium 10.5 H Total Bilirubin 0.90 AST 12 L ALT 16 Alkaline Phosphatase 89 Troponin I High Sens 6 Total Protein 8.6 H Albumin 3.7 Globulin 4.9 H Albumin/Globulin Ratio 0.8 L Urine Color Yellow Urine Clarity Sl. Cloudy Urine pH 6.0 Ur Specific [place] 1.015 Urine Protein 30 H Urine Glucose (UA) 1000 H Urine Ketones 5 H Urine Occult Blood 150 H Urine Nitrite Positive H Urine Bilirubin Negative Urine Urobilinogen Normal Ur Leukocyte Esterase 100 H Urine RBC 0-5 SEEN Urine WBC 10-25 SEEN Ur Squamous Epith Cells 0 SEEN Urine Bacteria 2+ Urine Mucus 0 SEEN Radiography Diagnostic Testing: Clinical Impression(s) from Imaging Studies Chest X-Ray 01/06/24 11:50 IMPRESSION: No radiographic evidence of acute cardiopulmonary disease. Electronically Signed: Wenceslao Adkins MD at 12:05 EDT , Discharge Plan Triage Chief Complaint: Weakness ED Provider: Attila Henson Dx/Rx/DC Orders Clinical Impression: Urinary tract infection, Generalized weakness Prescriptions: No Action rosuvastatin 40 mg tablet 40 mg PO DAILY Patient Comments: Take 1 tablet by mouth daily aspirin [Adult Aspirin Regimen] 81 mg tablet,delayed release (DR/EC) 81 mg PO DAILY tamsulosin [Flomax] 0.4 mg capsule 0.4 mg PO QHS finasteride 5 mg tablet 5 mg PO DAILY cholecalciferol (vitamin D3) 1,250 mcg (50,000 unit) capsule 1,250 mcg PO QWEEK Qty: 4 6RF carbidopa-levodopa [Sinemet] 25-100 mg tablet 2 tab PO .qid Qty: 240 6RF duloxetine 60 MG capsule 60 mg PO DAILY insulin degludec-liraglutide 3 ML insulin pen 36 unit SQ QHS bupropion HCl 150 MG tablet extended release 24 hr 150 mg PO DAILY buspirone 15 mg tablet 15 - 30 mg PO BID Rx Instructions: 1 TAB AM, 2 TABS QHS losartan 50 mg Tablet 50 mg PO QHS dapagliflozin propanediol [Farxiga] 10 mg Tablet 10 mg PO DAILY metformin 500 mg tablet extended release 24 hr 500 - 1,000 mg PO TID Rx Instructions: 2 at Breakfast, 1 at Lunch, 2 at Dinner fludrocortisone 0.1 mg tablet 0.1 mg PO MOTUWETHFRSA amoxicillin-pot clavulanate 875-125 mg tablet 1 tab PO Q12H Qty: 20 0RF (DME) Rollaler See Rx Instructions .Route .MEDSUPPLY Qty: 1 0RF Rx Instructions: As directed ([facility] [place]) Rollator See Rx Instructions .Route .MEDSUPPLY Qty: 1 0RF Rx Instructions: ICD 10: Parkinson's disease (G20), 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
--- NOTE | 2024-01-06 16:03 | PCM.HP.STD ---
HPI - General General Date of Admission: 01/06/24 HPI Narrative DAFNE OBANDO, is a 78 M who presents to the hospital with not feeling well. He says his symptoms start about a week ago but then got really worse yesterday. He says that he feels just weak and had difficulty getting up today. He has had symptoms like this in the past that were associated with a UTI which is why he came to the hospital. In the ER he was found to have a UTI and the noted that his UTI started after he was placed on Farxiga for diabetes. He does have a leukocytosis to 18.4 with a lactic acid of 3.1 but his creatinine appears to be around his baseline so there is not appear to be any endorgan damage at this time. [facility] Medical History Orthostatic hypotension Mild cognitive impairment Parkinson's disease Polyneuropathy BMI 29.0-29.9,adult JOAQUIM (obstructive sleep apnea) Hypersomnolence Incisional hernia History of echocardiogram Wears hearing aid Loss of hearing Wears glasses Anxiety History of steroid therapy Cancer Bladder disease Prostate disease High cholesterol Dietary restriction History of IBS Shortness of breath on exertion Smoker Cardiology follow-up encounter History of irregular heartbeat History of heart attack Fall Carcinoma in situ of skin, unspecified Poorly controlled diabetes mellitus Hypoglycemia Vitamin D deficiency Morbid obesity Hypercholesterolemia Metabolic syndrome Insomnia Neuropathy Hypertensive chronic kidney disease with stage 1 through stage 4 chronic kidney disease, or unspecified chronic kidney disease CAD (coronary artery disease) Chronic sinusitis Osteoarthritis Olecranon bursitis of left elbow Tremor Poor balance Altered mental status Other proteinuria Microalbuminuria Cardiomyopathy, ischemic Presence of stent in coronary artery (~01/28/21) Atherosclerotic heart disease of [place] coronary artery without angina pectoris Depression Fatigue Diarrhea History of colon cancer Multiple adenomatous polyps History of bladder cancer Tobacco abuse Burn of thigh Wound, open, hip or thigh Burn of thigh, left, second degree Cellulitis of right anterior lower leg Cellulitis of right lower extremity Reflex sympathetic dystrophy of right leg Sepsis BPH (benign prostatic hyperplasia) Hyperlipemia Type II diabetes mellitus Hypertension Home Medications ?Medication ?Instructions ?Recorded ?Last Taken ?Type duloxetine 60 mg capsule,delayed 60 mg PO DAILY depression 02/03/15 Unknown History release bupropion HCl 150 mg 24 hr tablet, 150 mg PO DAILY antidepressant 10/04/19 10/14/23 06:00 History extended release insulin degludec 100 36 unit SQ QHS diabetic 10/04/19 10/13/23 History unit-liraglutide 3.6 mg/mL(3 mL) subcutaneous pen rosuvastatin 40 mg tablet 40 mg PO DAILY cholesterol 10/28/20 Unknown History dapagliflozin propanediol 10 mg 10 mg PO DAILY diabetes 01/28/21 Unknown History tablet (Farxiga) losartan 50 mg tablet 50 mg PO QHS blood pressure 01/28/21 10/13/23 History aspirin 81 mg tablet,delayed 81 mg PO DAILY heart health 06/26/21 10/01/23 History release (Adult Aspirin Regimen) metformin 500 mg tablet,extended 500 - 1,000 mg PO TID diabetes 06/26/21 Unknown History release 24 hr Rollaler #1 ea 08/24/21 Unknown Rx Rollator #1 ea 08/24/21 Unknown Rx finasteride 5 mg tablet 5 mg PO DAILY prostate 10/29/21 10/14/23 06:00 History tamsulosin 0.4 mg capsule (Flomax) 0.4 mg PO QHS prostate 10/29/21 10/13/23 History buspirone 15 mg tablet 15 - 30 mg PO BID anxiety 02/15/22 10/14/23 06:00 History clopidogrel 75 mg tablet See Rx Instructions .Route 01/24/23 10/02/23 Rx .COMPLEX antiplatelet #90 tabs metoprolol tartrate 25 mg tablet 25 mg PO BID blood pressure #60 05/24/23 10/14/23 06:00 Rx tabs carbidopa 25 mg-levodopa 100 mg 2 tab PO .qid parkinson's #240 tabs 09/13/23 10/14/23 06:00 Rx tablet (Sinemet) cholecalciferol (vitamin D3) 1,250 1,250 mcg PO QWEEK supplement #4 09/13/23 Unknown Rx mcg (50,000 unit) capsule caps fludrocortisone 0.1 mg tablet 0.1 mg PO MOTUWETHFRSA adrenal 10/04/23 10/14/23 06:00 History insufficiency Allergy/AdvReac Type Severity Reaction Status Date / Time Sulfa (Sulfonamide Allergy Hives Verified 01/06/24 10:58 Antibiotics) hydrocodone (From [place]) AdvReac Intermediate headache Verified 01/06/24 10:58 hydrocodone bitartrate (From AdvReac Nausea Verified 01/06/24 10:58 Vicodin) topiramate (From Topamax) AdvReac memory Verified 01/06/24 10:58 loss Family History Father Heart disease CHF (congestive heart failure) Grandmother Diabetes Grandfather Diabetes Surgical History S/P skin cancer resection S/P TURP History of coronary artery stent placement History of cardiac catheterization Presence of coronary angioplasty implant and graft (~01/28/21) History of colonoscopy History of bladder surgery History of appendectomy History of cholecystectomy History of colectomy History of ankle surgery Social History household members: spouse housing: house Smoking Status: Current every day smoker tobacco type: pipe Smokeless tobacco user: other second hand exposure: No alcohol intake: current alcohol intake frequency: holidays/special occasions only substance use type: does not use caffeine: Yes what type of physical activity do you participate in: none frequency: does not exercise jacob/methodist: Amish seatbelt use: sometimes ROS Constitutional Constitutional: Reports fatigue and weakness; Denies chills, fever(s) or malaise Eyes Eyes: Denies blurry vision ENT HEENT: Denies headache(s) or nasal discharge Cardiovascular Cardiovascular: Denies chest pain, dyspnea on exertion or syncope Respiratory/Chest Respiratory/Chest: Denies cough, shortness of breath at rest or shortness of breath with exertion Gastrointestinal Gastrointestinal: Denies constipation, diarrhea, nausea or vomiting Genitourinary Genitourinary: Denies dysuria Neurologic Neurologic: Denies focal weakness, numbness or tremor(s) Psychiatric Psychiatric: Denies anxiety or depression Vital Signs Vital Signs Vital Signs: 01/06/24 10:58 01/06/24 11:01 01/06/24 11:01 Temperature 98.5 F 98.6 F Temperature Source Oral Oral Pulse Rate 93 94 Respiratory Rate 18 18 Respiratory Effort Normal Respiratory Pattern Normal Blood Pressure 136/67 H 109/72 Blood Pressure Mean 90 84 Pulse Ox 95 97 Oxygen Delivery Method Room Air Room Air 01/06/24 11:23 01/06/24 12:01 01/06/24 13:01 Temperature 97.7 F L 97.7 F L Temperature Source Temporal Temporal Pulse Rate 92 88 Respiratory Rate 22 H 16 Respiratory Effort Respiratory Pattern Blood Pressure 117/68 126/92 H Blood Pressure Mean 84 103 Pulse Ox 96 96 94 Oxygen Delivery Method Room Air Room Air Room Air 01/06/24 13:28 01/06/24 15:00 01/06/24 15:56 Temperature 98.1 F 98.2 F Temperature Source Oral Pulse Rate 74 87 89 Respiratory Rate 16 24 H 16 Respiratory Effort Respiratory Pattern Blood Pressure 103/85 H 131/79 H 130/84 H Blood Pressure Mean 91 96 99 Pulse Ox 94 94 Oxygen Delivery Method Room Air Weight Weight: 183 lb 6.4 oz Body Mass Index (BMI) 26.3 Physical Exam Narrative General: Alert, Oriented x3, Cooperative, No apparent distress HEENT: Atraumatic, PERRLA, EOMI, Normocephalic Oral: Moist Mucosa Neck: Supple, No JVD Lungs: Diminished, Normal air movement, No rhonchi, No wheeze, No rales Cardiovascular: Regular rate, Regular Rhythm, Normal S1, Normal S2, No murmurs Abdomen: Soft, Non Tender, Non-Distended, No Hepato-splenomegaly Extremities: No edema, Capillary Refill Less than 3 Seconds Skin: No rashes, No breakdown Musculoskeletal: No Tenderness to Palpation of Joints or Extremities Neurological: No focal neurological deficits, Motor Exam 5/5 strength throughout, Sensory exam intact to light touch and pain Psych/Mental Status: Normal Affect, Appropriate Results Lab / Micro Data 01/06/24 12:01 01/06/24 12:01 Labs: Laboratory Results - last 24 hr 01/06/24 11:39: Urine Color Yellow, Urine Clarity Sl. Cloudy, Urine pH 6.0, Ur Specific [place] 1.015, Urine Protein 30 H, Urine Glucose (UA) 1000 H, Urine Ketones 5 H, Urine Occult Blood 150 H, Urine Nitrite Positive H, Urine Bilirubin Negative, Urine Urobilinogen Normal, Ur Leukocyte Esterase 100 H, Urine RBC 0-5 SEEN, Urine WBC 10-25 SEEN, Ur Squamous Epith Cells 0 SEEN, Urine Bacteria 2+, Urine Mucus 0 SEEN 01/06/24 12:01: WBC 18.4 H, RBC 5.20, Hgb 15.1, Hct 46.6, MCV 89.6, MCH 29.0, MCHC 32.4, RDW Std Deviation 46.3 H, RDW Coeff of Ranjit 14.2, Plt Count 300, MPV 8.8, Immature Gran % (Auto) 1.000 H, Neut % (Auto) 84.0 H, Lymph % (Auto) 6.6 L, [place] % (Auto) 7.9, Eos % (Auto) 0.1, Baso % (Auto) 0.4, Absolute Neuts (auto) 15.4 H, Absolute Lymphs (auto) 1.21, Nucleated RBC % 0, PT 14.5, INR 1.1, APTT 29.8, Sodium 137, Potassium 4.2, Chloride 105, Carbon Dioxide 23.0, Anion Gap 9, BUN 19 H, Creatinine 1.64 H, Estim Creat Clear Calc 37.09, Est GFR (MDRD) Af Amer 52 L, Est GFR (MDRD) Non-Af 43 L, BUN/Creatinine Ratio 11.6, Glucose 207 H, Lactic Acid 3.1 H*, Calcium 10.5 H, Total Bilirubin 0.90, AST 12 L, ALT 16, Alkaline Phosphatase 89, Troponin I High Sens 6, Total Protein 8.6 H, Albumin 3.7, Globulin 4.9 H, Albumin/Globulin Ratio 0.8 L Micro: Microbiology 01/06/24 11:40 Mucosa - Nasopharyngeal SARS-CoV-2, Influenza & RSV (PCR) - Final Imaging Radiology Impression Chest X-Ray 01/06/24 11:50 IMPRESSION: No radiographic evidence of acute cardiopulmonary disease. Electronically Signed: Wenceslao Adkins MD at 12:05 EDT , Assessment & Plan Assessment/Plan (1) Urinary tract infection: PLAN: Plan 1. UTI with debility ? There does seem to be an association with his Farxiga ? Continue with Rocephin as his previous cultures were E. coli that were sensitive to Rocephin ? Urine cultures pending as are blood cultures ? He is not septic secondary to insurance ? Will continue with gentle IV fluids ? Rosa is in place, this can likely be removed in 24 to 48 hours 2. CAD status post stent/essential HTN/HLD ? Medications are pending verification however can likely resume his aspirin and Plavix ? Continue with his home blood pressure medications ? Continue with Crestor when verified ? Will monitor make adjustments as necessary 3. DM2 ? Will place on sliding scale insulin ? Accu-Cheks ACHS ? Can increase his insulin once verified ? Will monitor make adjustments as necessary ? Will need to monitor his Farxiga secondary to the fact that this is his second UTI since starting the medication 4. Anxiety/depression ? Stabilized ? Can resume Cymbalta, welbutrin, and BuSpar 5. BPH status post TURP ? Stable ? Continue with Flomax 6. Parkinsons - Stable - C/w Sinemet DVT: Heparin 76 minutes was spent on direct patient care, including documentation as well as chart review and collaboration with colleagues Charges/Coding Visit Charges Inpatient E&M: 52960 Init Hosp L3
[2024-01-06 16:28] LABS: Reflex Lactate? Y
[2024-01-06 17:18] LABS: Lactic Acid 2.3 mmol/L (0.4-1.9)
[2024-01-06] MEDS: 0.9% Normal Saline (1000mL) 1,000 ML 75 ML IV (19:09)
[2024-01-06] MEDS: Metoprolol Tartrate 25 MG Tablet PO (22:39)
[2024-01-06] MEDS: Carbidopa/Levodopa 25/100 Tablet PO (22:39)
[2024-01-06] MEDS: Heparin Injection (Vial) 5,000 UNIT/ML VIAL 5000 UNIT SC (22:39)
[2024-01-06] MEDS: Losartan Potassium 50 MG Tablet PO (22:39)
[2024-01-06] MEDS: Atorvastatin Calcium 80 MG Tablet PO (22:39)
[2024-01-06] MEDS: busPIRone 15 MG TABLET 30 MG PO (22:40)
[2024-01-06] MEDS: Tamsulosin HCl 0.4 MG Capsule PO (22:40)
[2024-01-06 23:21] LABS: Bedside Glucose 120 mg/dL (74-106)
[2024-01-06 23:21] LABS: Bedside Glucose 107 mg/dL (74-106)
[2024-01-07] VITALS (9 sets, daily range): BP systolic 127–165; BP diastolic 72–94; PULSE 68–93; RESP 16–18; TEMP 36.6–37.1; O2SAT 89–97
[2024-01-07 04:16] LABS: Bedside Glucose 169 mg/dL (74-106)
[2024-01-07] MEDS: 0.9% Normal Saline (1000mL) 1,000 ML 75 ML IV (05:22)
[2024-01-07 06:26] LABS: Absolute Neutrophil Count 12.2 X10^3/uL (2.0-7.7); Basophil# 0.07 X10^3/uL; Basophil% 0.5 % (0-1); Eosinophil# 0.05 X10^3/uL; Eosinophils% 0.3 % (0-5); Hemoglobin 11.9 g/dL (13.0-16.5); Lymphocyte % 9.2 % (19-41); Mean Corp Hgb Conc 32.2 g/dL (32-36); Mean Platelet Vol. 8.7 fl (6.2-12.0); Monocyte# 1.32 X10^3/uL; Monocyte% 8.7 % (0-10); NRBC Flagged by Analyzer 0 % (0-5); Neutrophil # 12.22 X10^3/uL (2.7-7.7); Neutrophil % 80.2 % (47-70); Platelet Count 245 K/mm3 (150-450); RBC Distribution Width CV 14.1 % (11.6-14.6); RBC Distribution Width SD 46.9 fl (35.1-43.9); Red Blood Count 4.11 M/mm3 (4.6-6.2); White Blood Count 15.2 K/mm3 (4.4-11.0)
[2024-01-07] MEDS: Heparin Injection (Vial) 5,000 UNIT/ML VIAL 5000 UNIT SC ×3 (06:37→21:58)
[2024-01-07] MEDS: Carbidopa/Levodopa 25/100 Tablet PO ×4 (06:37→21:58)
[2024-01-07 07:02] LABS: Anion Gap 6 (5-15); BUN 13 mg/dL (7-18); BUN/Creat Ratio 10.7 RATIO (10-20); Calcium,Total 8.7 mg/dL (8.5-10.1); Chloride 112 mmol/L (98-107); Creatinine, Serum 1.22 mg/dL (0.70-1.30); EST Glomerular Filtration Rate 61 mL/min (>60); Est Glom Filt Rate - Afr Amer 73 mL/min (>60); Estimated Creatinine Clearance 49.54 ml/min; Glucose 136 mg/dL (74-106); Potassium 3.9 mmol/L (3.5-5.1); Sodium Level 139 mmol/L (136-145)
[2024-01-07 07:31] LABS: Bedside Glucose 133 mg/dL (74-106)
--- NOTE | 2024-01-07 07:35 | PCM.PN.HOSP ---
Reason for Visit Reason for Visit: Diagnoses Urinary tract infection, site not specified (01/06/24) Objective Data Objective Data Vital Signs: Vital Signs Temp Pulse Resp BP Pulse Ox O2 Del Method O2 Flow Rate 98.6 F 93 18 127/72 H 95 Nasal Cannula 2 01/07/24 03:47 01/07/24 03:47 01/07/24 03:47 01/07/24 03:47 01/07/24 03:47 01/07/24 03:47 01/07/24 03:47 Oxygen Flow Rate (L/min) 2 Oxygen Delivery Method Nasal Cannula Weight: 188 lb 11.451 oz Body Mass Index (BMI) 30.4 Intake & Output: Intake and Output for Last 24 Hours 01/05/24 01/06/24 01/07/24 23:59 23:59 23:59 Intake Total 2550 / 2550 766.25 / 766.25 Output Total 950 / 950 800 / 800 Balance 1600 / 1600 -33.75 / -33.75 Lab / Micro Data 01/07/24 05:55 01/07/24 05:55 Labs: Laboratory Results - last 24 hr 01/06/24 11:39: Urine Color Yellow, Urine Clarity Sl. Cloudy, Urine pH 6.0, Ur Specific [place] 1.015, Urine Protein 30 H, Urine Glucose (UA) 1000 H, Urine Ketones 5 H, Urine Occult Blood 150 H, Urine Nitrite Positive H, Urine Bilirubin Negative, Urine Urobilinogen Normal, Ur Leukocyte Esterase 100 H, Urine RBC 0-5 SEEN, Urine WBC 10-25 SEEN, Ur Squamous Epith Cells 0 SEEN, Urine Bacteria 2+, Urine Mucus 0 SEEN 01/06/24 12:01: WBC 18.4 H, RBC 5.20, Hgb 15.1, Hct 46.6, MCV 89.6, MCH 29.0, MCHC 32.4, RDW Std Deviation 46.3 H, RDW Coeff of Ranjit 14.2, Plt Count 300, MPV 8.8, Immature Gran % (Auto) 1.000 H, Neut % (Auto) 84.0 H, Lymph % (Auto) 6.6 L, [place] % (Auto) 7.9, Eos % (Auto) 0.1, Baso % (Auto) 0.4, Absolute Neuts (auto) 15.4 H, Absolute Lymphs (auto) 1.21, Nucleated RBC % 0, PT 14.5, INR 1.1, APTT 29.8, Sodium 137, Potassium 4.2, Chloride 105, Carbon Dioxide 23.0, Anion Gap 9, BUN 19 H, Creatinine 1.64 H, Estim Creat Clear Calc 37.09, Est GFR (MDRD) Af Amer 52 L, Est GFR (MDRD) Non-Af 43 L, BUN/Creatinine Ratio 11.6, Glucose 207 H, Lactic Acid 3.1 H*, Calcium 10.5 H, Total Bilirubin 0.90, AST 12 L, ALT 16, Alkaline Phosphatase 89, Troponin I High Sens 6, Total Protein 8.6 H, Albumin 3.7, Globulin 4.9 H, Albumin/Globulin Ratio 0.8 L 01/06/24 16:39: Lactic Acid 2.3 H* 01/06/24 20:07: POC Glucose 120 H 01/06/24 22:41: POC Glucose 107 H 01/07/24 03:57: POC Glucose 169 H 01/07/24 05:55: WBC 15.2 H, RBC 4.11 L, Hgb 11.9 L, Hct 37.0 L, MCV 90.0, MCH 29.0, MCHC 32.2, RDW Std Deviation 46.9 H, RDW Coeff of Ranjit 14.1, Plt Count 245, MPV 8.7, Immature Gran % (Auto) 1.100 H, Neut % (Auto) 80.2 H, Lymph % (Auto) 9.2 L, [place] % (Auto) 8.7, Eos % (Auto) 0.3, Baso % (Auto) 0.5, Absolute Neuts (auto) 12.2 H, Absolute Lymphs (auto) 1.40, Nucleated RBC % 0, Sodium 139, Potassium 3.9, Chloride 112 H, Carbon Dioxide 21.0, Anion Gap 6, BUN 13, Creatinine 1.22, Estim Creat Clear Calc 49.54, Est GFR (MDRD) Af Amer 73, Est GFR (MDRD) Non-Af 61, BUN/Creatinine Ratio 10.7, Glucose 136 H, Calcium 8.7 01/07/24 06:35: POC Glucose 133 H Micro: Microbiology 01/06/24 11:40 Mucosa - Nasopharyngeal SARS-CoV-2, Influenza & RSV (PCR) - Final Radiography Diagnostic Testing: Radiology Impression Chest X-Ray 01/06/24 11:50 IMPRESSION: No radiographic evidence of acute cardiopulmonary disease. Electronically Signed: Wenceslao Adkins MD at 12:05 EDT , Physical Exam Narrative Seen and examined. Patient was brought for generalized weakness increased for 2 days but has for 1 month. Patient gets easily tired and yesterday could not move out of the toilet seat. No energy for walking. Physical exam General: Alert, Oriented x3, Cooperative. Fatigue HEENT: Atraumatic, PERRLA, EOMI, Normocephalic Oral: No Gingival or Mucosal Lesions/ Ulcerations Neck: Supple, No JVD, Negative Carotid Bruits Chest wall/Lungs: Air entry diminished in bilateral lung bases. No crepitation/rhonchi Cardiovascular: Regular rate, Regular Rhythm, Normal S1, Normal S2, No M/G/R Abdomen: Bowel Sounds Present, Soft, Non Tender, Non-Distended : No dysuria. No renal angle tenderness. No suprapubic tenderness. Extremities: No edema, Capillary Refill Less than 3 Seconds Skin: No rashes, No breakdown Musculoskeletal: Muscle strength 4+/5 at bilateral knees and hips joints. ROM restricted. No acute tenderness to Palpation of Joints or Extremities Neurological: Cranial nerves II-XII grossly intact, DTR 2+/4. No acute focal neurological deficit. Psych/Mental Status: Flat affect. Assessment & Plan Assessment/Plan (1) Urinary tract infection: PLAN: Plan This 78-year-old gentleman was admitted for generalized weakness for 1 month but got worse for last 2 days requiring significant help even for transfer and standing up from sitting position. 1. UTI with acute debility, probably physical deconditioning brought also from multiple medications ? There does seem to be an association with his Farxiga ? Continue with Rocephin as his previous cultures were E. coli that were sensitive to Rocephin ? Rosa is in place, this can likely be removed in 24 to 48 hours 01/06: Labs reviewed. Shows improvement in leukocytosis, mainly neutrophilia 80%, lymphopenia, immature granulocytes 1.1% suggestive of left shift. Urine culture pending. Clinical presentation and labs does not suggest sepsis. Lactic acidosis but patient has chronically high lactic acid from September 2023. 6.7, gradually improving to 2.3. Lactic acidosis probably related to medications. Continue IV fluid. 2. CAD status post stent/essential HTN/HLD ? Medications are pending verification however can likely resume his aspirin and Plavix ? Continue with his home blood pressure medications ? Continue with Crestor when verified ? monitor make adjustments as necessary 3. DM2 ? Glucose in BMP 207, 136. Last A1c 7.1% on October 11, 2023, 7.7 in January 2021 Accu-Chek before meals and at bedtime with Humalog sliding scale coverage and hypoglycemia protocol. ?Hold Farxiga. I think it is related to his UTI as it causes glucosuria. 4. Anxiety/depression ? Can resume Cymbalta, welbutrin, and BuSpar 5. BPH status post TURP ? Continue with Flomax 6. Parkinsons PT and OT - C/w Sinemet and follow-up with neurologist DVT: Heparin Charges/Coding Visit Charges Inpatient E&M: 43800 Subs Hosp L2
[2024-01-07] MEDS: busPIRone 15 MG TABLET PO (07:42)
[2024-01-07] MEDS: Metoprolol Tartrate 25 MG Tablet PO ×2 (07:42→21:58)
[2024-01-07] MEDS: Finasteride 5 MG Tablet PO (07:43)
[2024-01-07] MEDS: Fludrocortisone Acetate 0.1 MG Tablet PO (07:43)
[2024-01-07] MEDS: DULoxetine Hcl 60 MG Capsule PO (07:43)
[2024-01-07] MEDS: Aspirin E.C. 81 MG Tablet PO (07:44)
[2024-01-07] MEDS: buPROPion (XL) 150 MG TABLET.XL PO (07:44)
[2024-01-07] MEDS: Menthol/Lanolin/Calamine/Znox 113 GM Tube 1 APPLIC TOPICAL ×2 (07:45→21:59)
[2024-01-07] MEDS: Nystatin Powder 15gm Bottle 1 APPLIC TOPICAL ×2 (07:45→21:59)
[2024-01-07] MEDS: Clopidogrel Bisulfate 75 MG Tablet PO (07:49)
--- NOTE | 2024-01-07 10:10 | CASEMGMT ---
VERENICE MAX Assessment: Face to Face with pt for initial transition planning/care coordination assessment. VERENICE MAX introduced self and role at [facility], pt voices understanding and consents to assessment. Pt is A&O x3, tired. Pt agreeable to answering assessment questions. Care providers, pharmacy, and demographics verified/updated. Admitting Dx: UTI PCP:Sam Specialists:Nicolle, uro; Soren, neuro; [facility], cardio Preferred Pharmacy: [facility] Insurance: [facility] Prescription Benefit: yes LNOK: Claribel Clark, Living Arrangements: Pt lives with in a two story home with no steps to enter. Pt only uses first floor. Pt I in ADLs but takes extra time to complete. Pt performs IADLs. Pt denies concerns at home. Transportation: Pt does not drive often, pt transports pt. DME:cane, rollator, w/c, [employer]estyle [place] CGM with sufficient supply of sensors, insulin with sufficient supply and needles. HHC/SNF:Denies hx of Pt states no concerns with going home at time of dc. Pt has had a suresh in the past. Pt denies need for any services at home. Pt and deny need for HHC. 6 cl=14, therapy ordered. Pt states no further concerns/needs. CM to follow. Advised pt to ask CM if any further question/concerns/needs arise, voices understanding. Pt Goal: Home Plan: Home, follow therapy Joan CALDERA CM
[2024-01-07] MEDS: Ceftriaxone 1 GM/50 ML BAG IV (10:15)
[2024-01-07 11:33] LABS: Bedside Glucose 132 mg/dL (74-106)
[2024-01-07] MEDS: KCL 20MEQ in 0.9% NS 20 MEQ/1,000 ML IV.SOLN. 75 MEQ IV (11:39)
[2024-01-07] MEDS: Insulin Lispro 100 UNIT/ML INSULN.PEN SC ×2 (16:14→23:24)
[2024-01-07 16:56] LABS: Bedside Glucose 189 mg/dL (74-106)
[2024-01-07] MEDS: Acetaminophen 325 MG Tablet 650 MG PO (17:01)
[2024-01-07] MEDS: Atorvastatin Calcium 80 MG Tablet PO (21:57)
[2024-01-07] MEDS: Losartan Potassium 50 MG Tablet PO (21:58)
[2024-01-07] MEDS: busPIRone 15 MG TABLET 30 MG PO (21:58)
[2024-01-07] MEDS: Tamsulosin HCl 0.4 MG Capsule PO (21:58)
[2024-01-07 23:43] LABS: Bedside Glucose 195 mg/dL (74-106)
[2024-01-08] VITALS (7 sets, daily range): BP systolic 112–149; BP diastolic 70–90; PULSE 81–84; RESP 16–18; TEMP 36.4–37.1; O2SAT 94–96
[2024-01-08] MEDS: Heparin Injection (Vial) 5,000 UNIT/ML VIAL 5000 UNIT SC ×3 (06:10→21:38)
[2024-01-08 06:21] LABS: Absolute Lymphocyte Count 0.94 X10^3/uL (0.83-4.51); Absolute Neutrophil Count 9.1 X10^3/uL (2.0-7.7); Basophil# 0.06 X10^3/uL; Basophil% 0.5 % (0-1); Eosinophil# 0.19 X10^3/uL; Eosinophils% 1.7 % (0-5); Hematocrit 39.3 % (40-54); Hemoglobin 12.7 g/dL (13.0-16.5); Lymphocyte # 0.94 X10^3/ul (0.83-4.51); Lymphocyte % 8.3 % (19-41); Mean Corp Hgb Conc 32.3 g/dL (32-36); Mean Corpuscular Hgb 28.8 pg (27.0-32.0); Mean Corpuscular Volume 89.1 fL (80-94); Mean Platelet Vol. 8.8 fl (6.2-12.0); Monocyte# 0.99 X10^3/uL; Monocyte% 8.7 % (0-10); NRBC Flagged by Analyzer 0 % (0-5); Neutrophil # 9.05 X10^3/uL (2.7-7.7); Neutrophil % 79.9 % (47-70); Platelet Count 283 K/mm3 (150-450); RBC Distribution Width CV 13.4 % (11.6-14.6); Red Blood Count 4.41 M/mm3 (4.6-6.2); White Blood Count 11.3 K/mm3 (4.4-11.0)
[2024-01-08] MEDS: Insulin Lispro 100 UNIT/ML INSULN.PEN SC ×4 (06:54→21:39)
[2024-01-08] MEDS: Carbidopa/Levodopa 25/100 Tablet PO ×4 (06:55→21:46)
[2024-01-08 07:17] LABS: Bedside Glucose 200 mg/dL (74-106)
[2024-01-08] MEDS: busPIRone 15 MG TABLET PO (09:21)
[2024-01-08] MEDS: Menthol/Lanolin/Calamine/Znox 113 GM Tube 1 APPLIC TOPICAL ×2 (09:22→21:47)
[2024-01-08] MEDS: DULoxetine Hcl 60 MG Capsule PO (09:22)
[2024-01-08] MEDS: Aspirin E.C. 81 MG Tablet PO (09:22)
[2024-01-08] MEDS: Metoprolol Tartrate 25 MG Tablet PO ×2 (09:23→21:47)
[2024-01-08] MEDS: Nystatin Powder 15gm Bottle 1 APPLIC TOPICAL ×2 (09:23→21:46)
[2024-01-08] MEDS: buPROPion (XL) 150 MG TABLET.XL PO (09:25)
[2024-01-08] MEDS: Finasteride 5 MG Tablet PO (09:25)
[2024-01-08] MEDS: 0.9% Saline Lock 10 ML Syringe IV (09:26)
[2024-01-08] MEDS: Clopidogrel Bisulfate 75 MG Tablet PO (09:26)
[2024-01-08] MEDS: 0.9% Normal Saline (250mL Bag) 250 ML 15 ML IV (09:36)
[2024-01-08] MEDS: Ceftriaxone 1 GM/50 ML BAG IV (09:36)
--- NOTE | 2024-01-08 10:12 | PCM.PN.HOSP ---
Reason for Visit Reason for Visit: Diagnoses Urinary tract infection, site not specified (01/06/24) Objective Data Objective Data Vital Signs: Vital Signs Temp Pulse Resp BP Pulse Ox O2 Del Method O2 Flow Rate 97.6 F L 82 18 149/86 H 96 Room Air 2 01/08/24 09:11 01/08/24 09:23 01/08/24 09:11 01/08/24 09:11 01/08/24 09:11 01/08/24 09:11 01/07/24 21:30 Oxygen Flow Rate (L/min) 2 Oxygen Delivery Method Room Air Weight: 188 lb 11.451 oz Body Mass Index (BMI) 30.4 Intake & Output: Intake and Output for Last 24 Hours 01/06/24 01/07/24 01/08/24 23:59 23:59 23:59 Intake Total 2550 / 2550 2050.00 / 2050.00 1000 / 1000 Output Total 950 / 950 2500 / 2500 3650 / 3650 Balance 1600 / 1600 -450.00 / -450.00 -2650 / -2650 Lab / Micro Data 01/08/24 05:50 01/07/24 05:55 Labs: Laboratory Results - last 24 hr 01/07/24 11:10: POC Glucose 132 H 01/07/24 16:13: POC Glucose 189 H 01/07/24 23:21: POC Glucose 195 H 01/08/24 05:50: WBC 11.3 H, RBC 4.41 L, Hgb 12.7 L, Hct 39.3 L, MCV 89.1, MCH 28.8, MCHC 32.3, RDW Std Deviation 44.0 H, RDW Coeff of Ranjit 13.4, Plt Count 283, MPV 8.8, Immature Gran % (Auto) 0.900, Neut % (Auto) 79.9 H, Lymph % (Auto) 8.3 L, [place] % (Auto) 8.7, Eos % (Auto) 1.7, Baso % (Auto) 0.5, Absolute Neuts (auto) 9.1 H, Absolute Lymphs (auto) 0.94, Nucleated RBC % 0 01/08/24 06:51: POC Glucose 200 H Micro: Microbiology 01/06/24 13:35 Blood Culture (Wb) - Anticubital Right Blood Culture - Preliminary No growth in 48 hours. 01/06/24 11:39 Urine, Clean Catch Urine Culture - Preliminary Gram negative amarilis 01/06/24 11:40 Mucosa - Nasopharyngeal SARS-CoV-2, Influenza & RSV (PCR) - Final Physical Exam Narrative Seen and examined. Patient was brought for generalized weakness increased for 2 days but has for 1 month. Patient feels better today. Did not want to go to assisted. Physical exam General: Alert, Oriented x3, Cooperative. Fatigue HEENT: Atraumatic, PERRLA, EOMI, Normocephalic Oral: No Gingival or Mucosal Lesions/ Ulcerations Neck: Supple, No JVD, Negative Carotid Bruits Chest wall/Lungs: Air entry diminished in bilateral lung bases. No crepitation/rhonchi Cardiovascular: Regular rate, Regular Rhythm, Normal S1, Normal S2, No M/G/R Abdomen: Bowel Sounds Present, Soft, Non Tender, Non-Distended : No dysuria. No renal angle tenderness. No suprapubic tenderness. Extremities: No edema, Capillary Refill Less than 3 Seconds Skin: No rashes, No breakdown Musculoskeletal: Muscle strength 4+/5 at bilateral knees and hips joints. ROM restricted. No acute tenderness to Palpation of Joints or Extremities Neurological: Cranial nerves II-XII grossly intact, DTR 2+/4. No acute focal neurological deficit. Psych/Mental Status: Flat affect. Assessment & Plan Assessment/Plan (1) Urinary tract infection: PLAN: Plan This 78-year-old gentleman was admitted for generalized weakness for 1 month but got worse for last 2 days requiring significant help even for transfer and standing up from sitting position. 1. Asymptomatic bacteriuria with acute debility, probably physical deconditioning brought also from multiple medications ? There does seem to be an association with his [facility] ? Continue with Rocephin as his previous cultures were E. coli that were sensitive to Rocephin ? Rosa is in place, this can likely be removed in 24 to 48 hours 01/06: Labs reviewed. Shows improvement in leukocytosis, mainly neutrophilia 80%, lymphopenia, immature granulocytes 1.1% suggestive of left shift. Urine culture pending. Clinical presentation and labs does not suggest sepsis. Lactic acidosis but patient has chronically high lactic acid from September 2023. 6.7, gradually improving to 2.3. Lactic acidosis probably related to medications. Continue IV fluid. 01/07: Rosa catheter discontinued. Urine culture shows E. coli 25,000?50,000 colonies, resistant to Cipro and levofloxacin. UTI ruled out as colony count not in pathology range. Patient does not want to go to assisted. PT and OT ordered. Possible discharge tomorrow with home health. 2. CAD status post stent/essential HTN/HLD ? Medications are pending verification however can likely resume his aspirin and Plavix ? Continue with his home blood pressure medications ? Continue with Crestor when verified ? monitor make adjustments as necessary 3. DM2 ? Glucose in BMP 207, 136. Last A1c 7.1% on October 11, 2023, 7.7 in January 2021 Accu-Chek before meals and at bedtime with Humalog sliding scale coverage and hypoglycemia protocol. ?Hold Farxiga. I think it is related to his UTI as it causes glucosuria. 4. Anxiety/depression ? Can resume Cymbalta, welbutrin, and BuSpar 5. BPH status post TURP ? Continue with Flomax 6. Parkinsons PT and OT - C/w Sinemet and follow-up with neurologist DVT: Heparin Charges/Coding Visit Charges Inpatient E&M: 80791 Subs Hosp L2
[2024-01-08 11:45] LABS: Bedside Glucose 222 mg/dL (74-106)
[2024-01-08 16:21] LABS: Bedside Glucose 237 mg/dL (74-106)
[2024-01-08] MEDS: Insulin Glargine-YFGN 100 UNIT/ML Pen SC (17:00)
[2024-01-08] MEDS: Tamsulosin HCl 0.4 MG Capsule PO (21:40)
[2024-01-08] MEDS: busPIRone 15 MG TABLET 30 MG PO (21:41)
[2024-01-08] MEDS: Losartan Potassium 50 MG Tablet PO (21:43)
[2024-01-08] MEDS: Atorvastatin Calcium 80 MG Tablet PO (21:43)
[2024-01-08 22:57] LABS: Bedside Glucose 262 mg/dL (74-106)
[2024-01-09 02:00] VITALS: BP 161/75; PULSE 84; RESP 16; TEMP 37.2; O2SAT 92
[2024-01-09] MEDS: Insulin Lispro 100 UNIT/ML INSULN.PEN SC ×2 (06:38→11:09)
[2024-01-09] MEDS: Carbidopa/Levodopa 25/100 Tablet PO ×2 (06:39→11:09)
[2024-01-09] MEDS: Heparin Injection (Vial) 5,000 UNIT/ML VIAL 5000 UNIT SC ×2 (06:39→13:41)
[2024-01-09 07:35] LABS: Bedside Glucose 237 mg/dL (74-106)
[2024-01-09 08:00] VITALS: BP 146/95; PULSE 89; RESP 18; TEMP 36.2; O2SAT 93
[2024-01-09 08:25] VITALS: PULSE 89
[2024-01-09] MEDS: Aspirin E.C. 81 MG Tablet PO (08:25)
[2024-01-09] MEDS: busPIRone 15 MG TABLET PO (08:25)
[2024-01-09] MEDS: DULoxetine Hcl 60 MG Capsule PO (08:25)
[2024-01-09] MEDS: Metoprolol Tartrate 25 MG Tablet PO (08:25)
[2024-01-09] MEDS: Fludrocortisone Acetate 0.1 MG Tablet PO (08:26)
[2024-01-09] MEDS: buPROPion (XL) 150 MG TABLET.XL PO (08:26)
[2024-01-09] MEDS: Finasteride 5 MG Tablet PO (08:26)
[2024-01-09] MEDS: Nystatin Powder 15gm Bottle 1 APPLIC TOPICAL (08:28)
[2024-01-09] MEDS: Clopidogrel Bisulfate 75 MG Tablet PO (08:28)
[2024-01-09] MEDS: Ceftriaxone 1 GM/50 ML BAG IV (08:29)
[2024-01-09] MEDS: Menthol/Lanolin/Calamine/Znox 113 GM Tube 1 APPLIC TOPICAL (08:29)
[2024-01-09] MEDS: Insulin Glargine-YFGN 100 UNIT/ML Pen SC (08:29)
--- NOTE | 2024-01-09 10:58 | PCM.DC ---
Discharge Instructions Diet Discharge Diet: Low fat / Low cholesterol, 1800 Calorie Control Diet and 2000 mg Sodium Diet Activity Discharge Activity: Return to Normal Activity Weight Bearing Status: Weight bearing as tolerated Dressing / Incision Call your doctor if you observe: Fever of 101 or Higher, Coldness, Increased Pain, Numbness or Tingling, Change in Color, Inability to urinate, Inability to have a bowel movement, Shortness of breath, Dizziness, Fainting spells, Swelling in the ankles, Chest pain, Prolonged hiccupping, Increased palpitations (irregular heartbeat) and Calf discomfort Follow Up Care When: IN 2 WEEKS Test Results: Test results from this visit will be discussed in further detail at your follow-up appointment, if applicable. Discharge Plan Admission Admit Date/Time: 01/06/24 15:51 Primary Reason for Your Visit: Generalized weakness. UTI ruled out Attending Provider: Crow Garcia Primary Care Provider: Kelly Vargas Consulting Providers: Js Moreno Discharge Orders/Prescriptions Prescriptions: Continued rosuvastatin 40 mg tablet 40 mg PO DAILY Patient Comments: Take 1 tablet by mouth daily aspirin [Adult Aspirin Regimen] 81 mg tablet,delayed release (DR/EC) 81 mg PO DAILY tamsulosin [Flomax] 0.4 mg capsule 0.4 mg PO QHS finasteride 5 mg tablet 5 mg PO DAILY cholecalciferol (vitamin D3) 1,250 mcg (50,000 unit) capsule 1,250 mcg PO QWEEK Qty: 4 6RF Patient Comments: takes it on Tuesday, already taken. carbidopa-levodopa [Sinemet] 25-100 mg tablet 2 tab PO .qid Qty: 240 6RF duloxetine 60 MG capsule 60 mg PO DAILY bupropion HCl 150 MG tablet extended release 24 hr 150 mg PO DAILY buspirone 15 mg tablet 15 - 30 mg PO BID Patient Comments: per pt's takes 4x/day Rx Instructions: 1 TAB AM, 2 TABS QHS losartan 50 mg Tablet 50 mg PO QHS dapagliflozin propanediol [Farxiga] 10 mg Tablet 10 mg PO DAILY metformin 500 mg tablet extended release 24 hr 500 - 1,000 mg PO TID Rx Instructions: 2 at Breakfast, 1 at Lunch, 2 at Dinner fludrocortisone 0.1 mg tablet 0.1 mg PO MOTUWETHFRSA clopidogrel 75 mg tablet 75 mg PO DAILY (DME) Rollaler See Rx Instructions .Route .MEDSUPPLY Qty: 1 0RF Rx Instructions: As directed (DME) Rollator See Rx Instructions .Route .MEDSUPPLY Qty: 1 0RF Rx Instructions: ICD 10: Parkinson's disease (G20), 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
[2024-01-09 11:52] LABS: Bedside Glucose 280 mg/dL (74-106)
--- NOTE | 2024-01-09 12:12 | CASEMGMT ---
VERENICE CM into pt room, pt sitting up in chair with at bedside. Pt denies need for HHC at home. Pt states he feels he can manage on his own. Pt and aware that should they change their mind once home, they can call PCP to order this. No further needs at this time.
[2024-01-09 14:03] VITALS: BP 116/72; PULSE 82; RESP 16; TEMP 36.7; O2SAT 96
--- NOTE | 2024-01-09 14:04 | PCM.DC.SUM ---
Providers Date of Admission: 01/06/24 Date of Discharge: 01/09/24 Primary Care Physician: Dr. Kelly Vargas, DO Reason For Visit: UTI Diagnosis Discharge Diagnosis (1) Urinary tract infection: Status: Acute Code(s): N39.0 - Urinary tract infection, site not specified Plan This 78-year-old gentleman was admitted for generalized weakness for 1 month but got worse for last 2 days requiring significant help even for transfer and standing up from sitting position. 1. Asymptomatic bacteriuria with acute debility, probably physical deconditioning brought also from multiple medications ? There does seem to be an association with his Farxiga ? Continue with Rocephin as his previous cultures were E. coli that were sensitive to Rocephin ? Rosa is in place, this can likely be removed in 24 to 48 hours 01/06: Labs reviewed. Shows improvement in leukocytosis, mainly neutrophilia 80%, lymphopenia, immature granulocytes 1.1% suggestive of left shift. Urine culture pending. Clinical presentation and labs does not suggest sepsis. Lactic acidosis but patient has chronically high lactic acid from September 2023. 6.7, gradually improving to 2.3. Lactic acidosis probably related to medications. Continue IV fluid. 01/07: Rosa catheter discontinued. Urine culture shows E. coli 25,000?50,000 colonies, resistant to Cipro and levofloxacin. UTI ruled out as colony count not in pathology range. Patient does not want to go to [facility]. PT and OT ordered. Possible discharge tomorrow with home health. 01/08: Patient voiding urine spontaneously. She does not need further antibiotic. She already had 4 doses of IV ceftriaxone. Patient is on Farxiga which is risk for UTI therefore perineal hygiene emphasized. 2. CAD status post stent/essential HTN/HLD ? Medications are pending verification however can likely resume his aspirin and Plavix ? Continue with his home blood pressure medications ? Continue with Crestor when verified ? monitor make adjustments as necessary 3. DM2 ? Glucose in BMP 207, 136. Last A1c 7.1% on October 11, 2023, 7.7 in January 2021 Accu-Chek before meals and at bedtime with Humalog sliding scale coverage and hypoglycemia protocol. ?Hold Farxiga. I think it is related to his UTI as it causes glucosuria. 01/08: Farxiga/SGLT2 inhibitor also important for his primary prevention of MACE therefore continued for history of CAD. 4. Anxiety/depression ? Can resume Cymbalta, welbutrin, and BuSpar 5. BPH status post TURP ? Continue with Flomax and finasteride 6. Parkinsons PT and OT - C/w Sinemet and follow-up with neurologist DVT: Heparin Discharge medication reconciliation done. Discharge follow-up instructions completed. Discharge process discussed with the patient and all questions were answered to patient's satisfaction. Follow with PCP in 1 to 2 weeks Total time spent, exact 35 minutes on discharge meds reconciliation, examination, coordination of care with nurses and ancillary staff, review of imaging and blood test and discussion with the patient on follow-up instructions. Medications at Discharge Home Medications duloxetine 60 mg capsule,delayed release 60 mg PO DAILY depression 02/03/15 bupropion HCl 150 mg 24 hr tablet, extended release 150 mg PO DAILY antidepressant 10/04/19 rosuvastatin 40 mg tablet 40 mg PO DAILY cholesterol 10/28/20 dapagliflozin propanediol 10 mg tablet (Farxiga) 10 mg PO DAILY diabetes 01/28/21 losartan 50 mg tablet 50 mg PO QHS blood pressure 01/28/21 aspirin 81 mg tablet,delayed release (Adult Aspirin Regimen) 81 mg PO DAILY heart health 06/26/21 metformin 500 mg tablet,extended release 24 hr 500 - 1,000 mg PO TID diabetes 06/26/21 Rollaler #1 ea 08/24/21 Rollator #1 ea 08/24/21 finasteride 5 mg tablet 5 mg PO DAILY prostate 10/29/21 tamsulosin 0.4 mg capsule (Flomax) 0.4 mg PO QHS prostate 10/29/21 buspirone 15 mg tablet 15 - 30 mg PO BID anxiety 02/15/22 metoprolol tartrate 25 mg tablet 25 mg PO BID blood pressure #60 tabs 05/24/23 carbidopa 25 mg-levodopa 100 mg tablet (Sinemet) 2 tab PO .qid parkinson's #240 tabs 09/13/23 cholecalciferol (vitamin D3) 1,250 mcg (50,000 unit) capsule 1,250 mcg PO QWEEK supplement #4 caps 09/13/23 fludrocortisone 0.1 mg tablet 0.1 mg PO MOTUWETHFRSA adrenal insufficiency 10/04/23 clopidogrel 75 mg tablet 75 mg PO DAILY antiplatelet 01/08/24 insulin degludec 100 unit-liraglutide 3.6 mg/mL(3 mL) subcutaneous pen 5 unit SQ QHS diabetic 30 days #0 mL 01/09/24 Physical Exam Narrative Seen and examined. No acute issues. Patient voiding urine spontaneously. Denies burning micturition. Wants to go home. Does not want to go to [facility]. Physical exam General: Alert, Oriented x3, Cooperative. Feels good. HEENT: Atraumatic, PERRLA, EOMI, Normocephalic Oral: No Gingival or Mucosal Lesions/ Ulcerations Neck: Supple, No JVD, Negative Carotid Bruits Chest wall/Lungs: Air entry diminished in bilateral lung bases. No crepitation/rhonchi Cardiovascular: Regular rate, Regular Rhythm, Normal S1, Normal S2, No M/G/R Abdomen: Bowel Sounds Present, Soft, Non Tender, Non-Distended : No dysuria. No renal angle tenderness. No suprapubic tenderness. Extremities: No edema, Capillary Refill Less than 3 Seconds Skin: No rashes, No breakdown Musculoskeletal: Muscle strength 5/5 at bilateral knees and hips joints. ROM restricted. No acute tenderness to Palpation of Joints or Extremities Neurological: Cranial nerves II-XII grossly intact, DTR 2+/4. No acute focal neurological deficit. Psych/Mental Status: Flat affect. Weight / BMI Weight Weight: 188 lb 11.451 oz Body Mass Index (BMI) 30.4 ABG / Lab / Microbiology Data 01/08/24 05:50 01/07/24 05:55 Laboratory: Laboratory Results - last 24 hr 01/08/24 16:02: POC Glucose 237 H 01/08/24 21:36: POC Glucose 262 H 01/09/24 06:37: POC Glucose 237 H 01/09/24 11:08: POC Glucose 280 H Microbiology: Microbiology 01/06/24 11:39 Urine, Clean Catch Urine Culture - Final Escherichia coli 01/06/24 13:35 Blood Culture (Wb) - Anticubital Right Blood Culture - Preliminary No growth in 48 hours. 01/06/24 11:40 Mucosa - Nasopharyngeal SARS-CoV-2, Influenza & RSV (PCR) - Final D/C Instructions Discharge Diet: Low fat / Low cholesterol, 1800 Calorie Control Diet and 2000 mg Sodium Diet Weight Bearing Status: Weight bearing as tolerated Call your doctor if you observe: Fever of 101 or Higher, Coldness, Increased Pain, Numbness or Tingling, Change in Color, Inability to urinate, Inability to have a bowel movement, Shortness of breath, Dizziness, Fainting spells, Swelling in the ankles, Chest pain, Prolonged hiccupping, Increased palpitations (irregular heartbeat) and Calf discomfort When: IN 2 WEEKS Meaningful Use Info Meaningful Use Meaningful Use Diagnoses (Choose all that apply): None applicable Ischemic Stroke Statin Dosing Therapy Reference: STATIN DOSE THERAPY REFERENCE: * Patients > 75 years receive moderate or high dose statin therapy. * Patients 75 years or YOUNGER should receive HIGH intensity statin dose unless contraindicated. You will be required to document reason for non-treatment if statin daily dose does not meet guidelines. HIGH DOSE STATIN THERAPY DAILY Atorvastatin > than or = to 40 mg Rosuvastatin > than or = to 20 mg Amlodipine + Atorvastatin > than or = to 2.5/40 mg Ezetimibe + Simvastatin 10/80 mg Simvastatin 80mg Discharge Plan Admission Admit Date/Time: 01/06/24 15:51 Primary Reason for Your Visit: Generalized weakness. UTI ruled out Attending Provider: Crow Garcia Primary Care Provider: Kelly Vargas Consulting Providers: Js Moreno Discharge Orders/Prescriptions Prescriptions: Continued rosuvastatin 40 mg tablet 40 mg PO DAILY Patient Comments: Take 1 tablet by mouth daily aspirin [Adult Aspirin Regimen] 81 mg tablet,delayed release (DR/EC) 81 mg PO DAILY tamsulosin [Flomax] 0.4 mg capsule 0.4 mg PO QHS finasteride 5 mg tablet 5 mg PO DAILY cholecalciferol (vitamin D3) 1,250 mcg (50,000 unit) capsule 1,250 mcg PO QWEEK Qty: 4 6RF Patient Comments: takes it on Tuesday, already taken. carbidopa-levodopa [Sinemet] 25-100 mg tablet 2 tab PO .qid Qty: 240 6RF duloxetine 60 MG capsule 60 mg PO DAILY bupropion HCl 150 MG tablet extended release 24 hr 150 mg PO DAILY buspirone 15 mg tablet 15 - 30 mg PO BID Patient Comments: per pt's takes 4x/day Rx Instructions: 1 TAB AM, 2 TABS QHS losartan 50 mg Tablet 50 mg PO QHS dapagliflozin propanediol [Farxiga] 10 mg Tablet 10 mg PO DAILY metformin 500 mg tablet extended release 24 hr 500 - 1,000 mg PO TID Rx Instructions: 2 at Breakfast, 1 at Lunch, 2 at Dinner fludrocortisone 0.1 mg tablet 0.1 mg PO MOTUWETHFRSA clopidogrel 75 mg tablet 75 mg PO DAILY (DME) Rollaler See Rx Instructions .Route .MEDSUPPLY Qty: 1 0RF Rx Instructions: As directed (DME) Rollator See Rx Instructions .Route .MEDSUPPLY Qty: 1 0RF Rx Instructions: ICD 10: Parkinson's disease (G20), 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
== END 2024-01-09 16:07 | disposition home or self-care (01) | DRG 948 ==
LOC: ED 12:43 → MS3 16:12
PROVIDERS: Admitting Provider Family Medicine; Emergency Provider Emergency Medicine; PCP Internal Medicine; Visit Provider Internal Medicine
DX: R53.81 Other malaise (principal); G20.A1 Parkinson's disease without dyskinesia, without mention of fluctuations; E11.42 Type 2 diabetes mellitus with diabetic polyneuropathy; Z79.4 Long term (current) use of insulin; E87.22 Chronic metabolic acidosis; F32.A Depression, unspecified; I10 Essential (primary) hypertension; I25.10 Atherosclerotic heart disease of native coronary artery without angina pectoris; F41.9 Anxiety disorder, unspecified; F17.290 Nicotine dependence, other tobacco product, uncomplicated; E78.00 Pure hypercholesterolemia, unspecified; I25.2 Old myocardial infarction; R82.71 Bacteriuria; R53.1 Weakness; T38.3X5A Adverse effect of insulin and oral hypoglycemic [antidiabetic] drugs, initial encounter; N40.0 Benign prostatic hyperplasia without lower urinary tract symptoms; Z95.5 Presence of coronary angioplasty implant and graft; Z79.02 Long term (current) use of antithrombotics/antiplatelets; Z79.82 Long term (current) use of aspirin; Z79.84 Long term (current) use of oral hypoglycemic drugs; Z79.899 Other long term (current) drug therapy; I44.0 Atrioventricular block, first degree; R94.31 Abnormal electrocardiogram [ECG] [EKG]
CPT/HCPCS: 36415; 51702; 71045; 80048; 80053; 81001; 82962; 83605; 84484; 85025; 85610; 85730; 87040; 87077; 87086; 87088; 87186; 87631; 93005; 96361; 96365; 96366; 96372; 97110; 97116; 97162; 97166; 97530; 97535; 99221; 99285; J7030; J7050; A4216; G0378

== ENCOUNTER 2024-02-02 08:59 | Emergency (ER) | payer MEDICARE, SELFPAY ==
[2021-04-01 08:35] VITALS: BMI 32.3
[2024-02-02 08:59] VITALS: BP 129/88; PULSE 80; RESP 14; TEMP 36.1; O2SAT 94
[2024-02-02 09:11] VITALS: BMI 29.8
--- NOTE | 2024-02-02 09:13 | CT_ITS ---
STUDY: CT CERVICAL SPINE WITHOUT CONTRAST REASON FOR EXAM: Male, 78 years old. History of fall. RADIATION DOSAGE (If Supplied By Facility): CTDIvol = ( 25.00 ) mGy, DLP = ( 469.79 ) mGycm TECHNIQUE: High resolution transaxial imaging was performed without contrast material. Sagittal and coronal images were reconstructed. Individualized dose optimization techniques were used for this CT. COMPARISON: None FINDINGS: Normal craniovertebral junction. Normal anterior atlantoaxial articulation. Normal odontoid process. There is straightening of the normal cervical lordosis. Multilevel spondylosis. C2-3: Normal endplates. Normal disc height and morphology. Normal central canal and intervertebral neuroforamina. C3-4: Marked degree of disc space narrowing. Spondylosis. Uncovertebral arthrosis. Bilateral moderate degree of neural foraminal stenosis. C4-5: Marked degree of disc space narrowing. Spondylosis. Uncovertebral arthrosis. Bilateral neural foraminal stenosis. C5-6: Marked degree of disc space narrowing. Spondylosis. Uncovertebral arthrosis. Bilateral neural foraminal stenosis. C6-7: Marked degree of disc space narrowing. Spondylosis. Bilateral neural foraminal stenosis. C7-T1: Marked degree of disc space narrowing. Spondylosis. Normal visualized soft tissue structures. CT/Spine Cervical without Contras IMPRESSION: Multilevel degenerative changes, as described above. Electronically Signed: Guillaume Romero MD at 10:23 EDT ,
--- NOTE | 2024-02-02 09:13 | CT_ITS ---
STUDY: CT BRAIN WITHOUT CONTRAST REASON FOR EXAM: Male, 78 years old. Head injury due to a fall. Patient is on blood thinners. RADIATION DOSAGE (If Supplied By Facility): CTDIvol = ( 44.99 ) mGy, DLP = ( 796.11 ) mGycm TECHNIQUE: Transaxial CT imaging of the brain was performed without administration of intravenous contrast material. Individualized dose optimization techniques were used for this CT. COMPARISON: Comparison is made with prior study dated October 17, 2023. FINDINGS: Normal soft tissue structures. Normal calvarium. There is moderate cerebral atrophy with widening of the extra-axial spaces and ventricular dilatation. There are areas of decreased attenuation within the white matter tracts of the supratentorial brain, consistent with microvascular disease changes. Normal basal ganglia and thalami. Normal brainstem. There is mild cerebellar atrophy. There is no intracranial hemorrhage. There are no findings of an acute ischemic infarction. Atherosclerotic plaque formation of the vertebral arteries and cavernous portions of the internal carotid arteries bilaterally. Normal visualized paranasal sinuses. CT/Brain/Head without Contrast IMPRESSION: Chronic involutional changes of the brain. Electronically Signed: Guillaume Romero MD at 10:20 EDT ,
--- NOTE | 2024-02-02 09:14 | EDS_ITS ---
HPI History of Present Illness Chief Complaint: Head Injury Narrative Narrative: Patient is a 78-year-old male past medical history of Parkinson's disease, hypercholesteremia, CAD, depression, type 2 diabetes who presents to the emergency department chief complaint of fall and hit his head. According the patient and he was walking and noted that he was stepping off a curb and his heel caught the back of the curb causing him to fall forward hit his head. According to significant other bedside she notes that they were told in the past to come to the hospital to be evaluated since he is on blood thinning medications patient states that he did not pass out did not lose consciousness remembers entire event. He denies any other pain anywhere else. Patient states that his last tetanus shot was updated within the last 2 years. [facility] Medical History Generalized weakness Orthostatic hypotension Mild cognitive impairment Parkinson's disease Polyneuropathy BMI 29.0-29.9,adult JOAQUIM (obstructive sleep apnea) Hypersomnolence Incisional hernia History of echocardiogram Wears hearing aid Loss of hearing Wears glasses Anxiety History of steroid therapy Cancer Bladder disease Prostate disease High cholesterol Dietary restriction History of IBS Shortness of breath on exertion Smoker Cardiology follow-up encounter History of irregular heartbeat History of heart attack Fall Carcinoma in situ of skin, unspecified Poorly controlled diabetes mellitus Hypoglycemia Vitamin D deficiency Morbid obesity Hypercholesterolemia Metabolic syndrome Insomnia Neuropathy Hypertensive chronic kidney disease with stage 1 through stage 4 chronic kidney disease, or unspecified chronic kidney disease CAD (coronary artery disease) Chronic sinusitis Osteoarthritis Olecranon bursitis of left elbow Tremor Poor balance Altered mental status Other proteinuria Microalbuminuria Cardiomyopathy, ischemic Presence of stent in coronary artery (~01/28/21) Atherosclerotic heart disease of [place] coronary artery without angina pectoris Depression Fatigue Diarrhea History of colon cancer Multiple adenomatous polyps History of bladder cancer Tobacco abuse Burn of thigh Wound, open, hip or thigh Burn of thigh, left, second degree Cellulitis of right anterior lower leg Cellulitis of right lower extremity Reflex sympathetic dystrophy of right leg Sepsis BPH (benign prostatic hyperplasia) Hyperlipemia Type II diabetes mellitus Hypertension Home Medications ?Medication ?Instructions ?Recorded ?Last Taken ?Type duloxetine 60 mg capsule,delayed 60 mg PO DAILY depression 02/03/15 Unknown History release bupropion HCl 150 mg 24 hr tablet, 150 mg PO DAILY antidepressant 10/04/19 10/14/23 06:00 History extended release rosuvastatin 40 mg tablet 40 mg PO DAILY cholesterol 10/28/20 Unknown History dapagliflozin propanediol 10 mg 10 mg PO DAILY diabetes 01/28/21 Unknown History tablet (Farxiga) losartan 50 mg tablet 50 mg PO QHS blood pressure 01/28/21 10/13/23 History aspirin 81 mg tablet,delayed 81 mg PO DAILY heart health 06/26/21 10/01/23 History release (Adult Aspirin Regimen) metformin 500 mg tablet,extended 500 - 1,000 mg PO TID diabetes 06/26/21 Unknown History release 24 hr Rollaler #1 ea 08/24/21 Unknown Rx Rollator #1 ea 08/24/21 Unknown Rx finasteride 5 mg tablet 5 mg PO DAILY prostate 10/29/21 10/14/23 06:00 History tamsulosin 0.4 mg capsule (Flomax) 0.4 mg PO QHS prostate 10/29/21 10/13/23 History buspirone 15 mg tablet 15 - 30 mg PO BID anxiety 02/15/22 10/14/23 06:00 History metoprolol tartrate 25 mg tablet 25 mg PO BID blood pressure #60 05/24/23 10/14/23 06:00 Rx tabs carbidopa 25 mg-levodopa 100 mg 2 tab PO .qid parkinson's #240 tabs 09/13/23 10/14/23 06:00 Rx tablet (Sinemet) cholecalciferol (vitamin D3) 1,250 1,250 mcg PO QWEEK supplement #4 09/13/23 Unknown Rx mcg (50,000 unit) capsule caps fludrocortisone 0.1 mg tablet 0.1 mg PO MOTUWETHFRSA adrenal 10/04/23 10/14/23 06:00 History insufficiency insulin degludec 100 5 unit SQ QHS diabetic 30 days #0 01/09/24 10/13/23 Rx unit-liraglutide 3.6 mg/mL(3 mL) mL subcutaneous pen clopidogrel 75 mg tablet 75 mg PO DAILY #90 TABLETS 01/31/24 Unknown Rx Allergy/AdvReac Type Severity Reaction Status Date / Time Sulfa (Sulfonamide Allergy Hives Verified 02/02/24 08:59 Antibiotics) hydrocodone (From [place]) AdvReac Intermediate headache Verified 02/02/24 08:59 hydrocodone bitartrate (From AdvReac Nausea Verified 02/02/24 08:59 Vicodin) topiramate (From Topamax) AdvReac memory Verified 02/02/24 08:59 loss Family History Father Heart disease CHF (congestive heart failure) Grandmother Diabetes Grandfather Diabetes Surgical History S/P skin cancer resection S/P TURP History of coronary artery stent placement History of cardiac catheterization Presence of coronary angioplasty implant and graft (~01/28/21) History of colonoscopy History of bladder surgery History of appendectomy History of cholecystectomy History of colectomy History of ankle surgery Social History household members: spouse housing: house Smoking Status: Current every day smoker tobacco type: pipe Smokeless tobacco user: other second hand exposure: No alcohol intake: current alcohol intake frequency: holidays/special occasions only substance use type: does not use caffeine: Yes what type of physical activity do you participate in: none frequency: does not exercise jacob/zoroastrianism: [employer] seatbelt use: sometimes ROS ROS ED ROS Narrative Constitutional: Denies any fevers, chills, headaches, lightness, dizziness Eyes: Denies change in vision double vision blurry vision Cardiovascular: Denies chest pain or palpitations Respiratory: Denies coughing wheezing shortness of breath Abdomen: Denies abdominal pain nausea vomit diarrhea : Denies any urinary symptoms Neurological: Denies numbness, weakness, tingling Musculoskeletal: Denies back pain Skin: States that he did scrape his hand EXAM Physical Exam Narrative Exam Narrative: General: Patient lying in bed rest comfortably did not appear to be in acute distress Head: Patient has superficial abrasion noted above his left eyebrow no active bleeding noted, normocephalic Eyes: PERRL bilaterally, EOMI bilateral, no conjunctival injection noted Neck: Soft, supple, trach midline, patient is full range of motion of his neck no pain elicited no pain to palpation midline of the cervical spine Cardiovascular: Regular rate and rhythm no murmurs gallops rubs noted Respiratory: Clear to auscultation bilaterally Abdomen: Soft, nondistended, nontender to palpation, bowel sounds present x 4 Musculoskeletal: All bony prominences palpated and joints taken through full range of motion no pain elicited. No tenderness palpation the midline of the thoracolumbar spine no step-offs deformities noted Extremities: +5/5 strength noted in the bilateral lower extremities, radial pulses +2/4 in the bilateral per extremities, no pedal edema on exam Neurological: Patient following commands knew that he was at [facility] year is 2023 Skin: Warm, dry, patient is superficial abrasion on the dorsal aspect of his left hand no active bleeding noted no laceration noted Const Vital Signs: 02/02/24 08:59 02/02/24 09:09 Temperature 96.9 F L Temperature Source Temporal Pulse Rate 80 Respiratory Rate 14 Respiratory Effort Normal Blood Pressure 129/88 H Blood Pressure Mean 101 Pulse Ox 94 Oxygen Delivery Method Room Air MDM MDM MDM Narrative Medical decision making narrative: Patient is a 78-year-old male who presented to the emerged part with a chief complaint of mechanical fall while coming off of the curb his heel hitting the back of the curb causing fall forward. Once again the patient states that he did not have any lightheadedness, dizziness, chest pain shortness of breath prior to the fall he states that his foot hit the back of the curb causing the fall forward. Patient will have a workup performed here on the differential diagnose includes but not limited to mechanical fall, superficial bridge and forehead, intracranial hemorrhage, cervical spine fracture. Once workup is obtained reviewed he will be reevaluated. Patient CT head and brain were reviewed showed chronic involutional changes of the brain. Patient CT cervical spine reviewed showed multilevel degenerative changes no acute fracture dislocations. Discussed the results with the patient he would like to go home at this point time. Patient did ambulate here in the emergency department with out any difficulty. Patient was vies follow-up with his primary care physician outpatient setting and return with worsening symptoms or concerns. He is advised to use Tylenol for pain control and ice as needed. He is agreeable this plan as well as significant other bedside all question concerns answered he is discharged home in stable condition. Lab Data Labs: Laboratory Results - last 24 hr 02/02/24 09:52 POC Glucose 98 Radiography Diagnostic Testing: Clinical Impression(s) from Imaging Studies Brain CT 02/02/24 09:13 IMPRESSION: Chronic involutional changes of the brain. Electronically Signed: Guillaume Romero MD at 10:20 EDT , Cervical Spine CT 02/02/24 09:13 IMPRESSION: Multilevel degenerative changes, as described above. Electronically Signed: Guillaume Romero MD at 10:23 EDT , Discharge Plan Triage Chief Complaint: Head Injury ED Provider: Attila Henson Dx/Rx/DC Orders Prescriptions: No Action rosuvastatin 40 mg tablet 40 mg PO DAILY Patient Comments: Take 1 tablet by mouth daily aspirin [Adult Aspirin Regimen] 81 mg tablet,delayed release (DR/EC) 81 mg PO DAILY tamsulosin [Flomax] 0.4 mg capsule 0.4 mg PO QHS finasteride 5 mg tablet 5 mg PO DAILY cholecalciferol (vitamin D3) 1,250 mcg (50,000 unit) capsule 1,250 mcg PO QWEEK Qty: 4 6RF Patient Comments: takes it on Tuesday, already taken. carbidopa-levodopa [Sinemet] 25-100 mg tablet 2 tab PO .qid Qty: 240 6RF duloxetine 60 MG capsule 60 mg PO DAILY bupropion HCl 150 MG tablet extended release 24 hr 150 mg PO DAILY buspirone 15 mg tablet 15 - 30 mg PO BID Patient Comments: per pt's takes 4x/day Rx Instructions: 1 TAB AM, 2 TABS QHS losartan 50 mg Tablet 50 mg PO QHS dapagliflozin propanediol [Farxiga] 10 mg Tablet 10 mg PO DAILY metformin 500 mg tablet extended release 24 hr 500 - 1,000 mg PO TID Rx Instructions: 2 at Breakfast, 1 at Lunch, 2 at Dinner fludrocortisone 0.1 mg tablet 0.1 mg PO MOTUWETHFRSA insulin degludec-liraglutide 3 ML insulin pen 5 unit SQ QHS 30 Days Qty: 0 0RF Rx Instructions: Hold if glucose less than 130 mg/dl (DME) Rollaler See Rx Instructions .Route .MEDSUPPLY Qty: 1 0RF Rx Instructions: As directed (DME) Rollator See Rx Instructions .Route .MEDSUPPLY Qty: 1 0RF Rx Instructions: ICD 10: Parkinson's disease (G20), 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
[2024-02-02 10:10] LABS: Bedside Glucose 98 mg/dL (74-106)
[2024-02-02 10:59] VITALS: BP 158/60; PULSE 77; RESP 16; O2SAT 99
[2024-02-02 11:39] VITALS: BP 160/60; PULSE 71; RESP 14; TEMP 36.6; O2SAT 96
== END 2024-02-02 12:06 | disposition home or self-care (01) ==
LOC: ED 09:19
PROVIDERS: Emergency Provider Emergency Medicine; PCP Internal Medicine; Visit Provider Emergency Medicine
DX: S09.90XA Unspecified injury of head, initial encounter (principal); E11.22 Type 2 diabetes mellitus with diabetic chronic kidney disease; E11.42 Type 2 diabetes mellitus with diabetic polyneuropathy; I25.10 Atherosclerotic heart disease of native coronary artery without angina pectoris; G47.33 Obstructive sleep apnea (adult) (pediatric); I25.2 Old myocardial infarction; N18.9 Chronic kidney disease, unspecified; F17.290 Nicotine dependence, other tobacco product, uncomplicated; W19.XXXA Unspecified fall, initial encounter; Z95.5 Presence of coronary angioplasty implant and graft
CPT/HCPCS: 70450; 72125; 82962; 99282

== ENCOUNTER → 2024-02-23 | Outpatient (CLI) | payer MEDICARE, SELFPAY ==
[2021-04-01 08:35] VITALS: BMI 32.3
[2024-02-23 17:59] LABS: Hematocrit 36.4 % (40-54); Hemoglobin 11.7 g/dL (13.0-16.5); Mean Corp Hgb Conc 32.1 g/dL (32-36); Mean Corpuscular Hgb 28.3 pg (27.0-32.0); Mean Corpuscular Volume 87.9 fL (80-94); Mean Platelet Vol. 8.5 fl (6.2-12.0); Platelet Count 304 K/mm3 (150-450); RBC Distribution Width CV 14.1 % (11.6-14.6); RBC Distribution Width SD 44.6 fl (35.1-43.9); Red Blood Count 4.14 M/mm3 (4.6-6.2); White Blood Count 8.2 K/mm3 (4.4-11.0)
[2024-02-23 18:10] LABS: Vitamin B12 > 2000 pg/mL (211-911)
[2024-02-23 18:52] LABS: AST(SGOT) 22 U/L (15-37); Alanine Aminotransfer ALT/SGPT 17 U/L (16-61); Albumin, Serum 3.5 g/dL (3.2-5.0); Alkaline Phosphatase 78 U/L (45-117); Anion Gap 8 (5-15); BUN 17 mg/dL (7-18); BUN/Creat Ratio 13.9 RATIO (10-20); Calcium,Total 9.1 mg/dL (8.5-10.1); Chloride 111 mmol/L (98-107); Creatinine, Serum 1.22 mg/dL (0.70-1.30); EST Glomerular Filtration Rate 61 mL/min (>60); Est Glom Filt Rate - Afr Amer 73 mL/min (>60); Globulin 3.5 g/dL (2.2-4.2); Glucose 94 mg/dL (74-106); Magnesium 2.1 mg/dL (1.6-2.6); Potassium 4.3 mmol/L (3.5-5.1); Sodium Level 140 mmol/L (136-145)
[2024-02-29 12:10] LABS: Vitamin B1, Thiamine 174.8 nmol/L (66.5-200.0)
== END | disposition home or self-care (01) ==
PROVIDERS: PCP Internal Medicine; Referring Provider Psychiatry & Neurology Neurology; Visit Provider Psychiatry & Neurology Neurology
DX: R41.0 Disorientation, unspecified (principal); I10 Essential (primary) hypertension; R53.83 Other fatigue; N39.0 Urinary tract infection, site not specified
CPT/HCPCS: 36415; 80053; 82140; 82607; 82746; 83735; 84425; 84443; 85027

== ENCOUNTER → 2024-02-27 | Outpatient (CLI) | payer MEDICARE, SELFPAY ==
[2021-04-01 08:35] VITALS: BMI 32.3
== END | disposition home or self-care (01) ==
PROVIDERS: PCP Internal Medicine; Referring Provider Psychiatry & Neurology Neurology; Visit Provider Psychiatry & Neurology Neurology
DX: R53.83 Other fatigue (principal); N39.0 Urinary tract infection, site not specified
CPT/HCPCS: 87077; 87086; 87088; 87186

== ENCOUNTER → 2024-03-14 | Outpatient (CLI) | payer MEDICARE, SELFPAY ==
[2021-04-01 08:35] VITALS: BMI 32.3
[2024-03-14 12:21] LABS: Hematocrit 44.8 % (40-54); Hemoglobin 14.3 g/dL (13.0-16.5); Mean Corp Hgb Conc 31.9 g/dL (32-36); Mean Corpuscular Volume 90.9 fL (80-94); Mean Platelet Vol. 8.9 fl (6.2-12.0); Platelet Count 313 K/mm3 (150-450); RBC Distribution Width CV 15.2 % (11.6-14.6); RBC Distribution Width SD 50.3 fl (35.1-43.9); Red Blood Count 4.93 M/mm3 (4.6-6.2); White Blood Count 10.7 K/mm3 (4.4-11.0)
[2024-03-14 12:44] LABS: ALB/GLOB Ratio 0.9 RATIO (0.9-2.4); AST(SGOT) 20 U/L (15-37); Alanine Aminotransfer ALT/SGPT 20 U/L (16-61); Albumin, Serum 3.6 g/dL (3.2-5.0); Alkaline Phosphatase 86 U/L (45-117); Anion Gap 7 (5-15); BUN 27 mg/dL (7-18); Calcium,Total 9.5 mg/dL (8.5-10.1); Chloride 108 mmol/L (98-107); Creatinine, Serum 1.59 mg/dL (0.70-1.30); EST Glomerular Filtration Rate 45 mL/min (>60); Est Glom Filt Rate - Afr Amer 54 mL/min (>60); Ferritin 52 ng/mL (26-388); Glucose 171 mg/dL (74-106); Iron 41 ug/dL (65-175); Potassium 4.2 mmol/L (3.5-5.1); Protein, Total 7.6 g/dL (6.4-8.2); Sodium Level 139 mmol/L (136-145)
== END | disposition home or self-care (01) ==
LOC: MTLAB 11:00
PROVIDERS: PCP Internal Medicine; Referring Provider Psychiatry & Neurology Neurology; Visit Provider Psychiatry & Neurology Neurology
DX: N39.0 Urinary tract infection, site not specified (principal); Z86.2 Personal history of diseases of the blood and blood-forming organs and certain disorders involving the immune mechanism
CPT/HCPCS: 36415; 80053; 82728; 83540; 85027

== ENCOUNTER → 2024-03-15 | Outpatient (CLI) | payer MEDICARE, SELFPAY ==
[2021-04-01 08:35] VITALS: BMI 32.3
== END | disposition home or self-care (01) ==
PROVIDERS: PCP Internal Medicine; Referring Provider Psychiatry & Neurology Neurology; Visit Provider Psychiatry & Neurology Neurology
DX: N39.0 Urinary tract infection, site not specified (principal)
CPT/HCPCS: 87086; 87088

== ENCOUNTER 2024-04-23 14:00 | Outpatient (RCR) | payer MEDICARE, SELFPAY ==
[2021-04-01 08:35] VITALS: BMI 32.3
--- NOTE | 2024-06-26 07:52 | HP.PT.NRP ---
Patient Information Patient Information: DAFNE OBANDO was seen in my office for initial evaluation on 03/05/24. The following Plan of Care was established for this patient: POC Established Initial Frequency: 1x/Week Initial Duration: 6 Weeks Anticipated Interventions Patient/Client Instruction: Educate patient on: Condition and Plan of Care For the Purpose of:: To increase ROM, To improve nutrient delivery to tissue, To increase oxygenation perfusion, To improve muscle performance and motor function, To improve ability to perform ADL's, To improve gait and locomotor functions, To improve health of tissue, To decrease soft tissue restriction, To increase flexibility/ROM, To improve endurance, To improve balance and To improve safety with gait Therapeutic Exercise to Include: Strength training, Endurance training, Balance training, Postural training, Flexibilty training, Gait and locomotor training, Neuromotor development, Active ROM and Dynamic Lumbar Stabilization For the Purpose of:: To improve nutrient delivery to tissue, To increase oxygenation perfusion, To improve muscle performance and motor function, To improve ability to perform ADL's, To increase tolerance to activity/condition/position, To improve performance and independence with ADL's, To decrease level of supervision to perform tasks, To improve ability of physical actions for home/community/work/leisure, To improve gait and locomotor functions, To improve health of tissue, To decrease soft tissue restriction, To increase flexibility/ROM, To improve endurance, To improve balance and To improve safety with gait Functional Training to Include: Gait training For the Purpose of:: To improve gait and locomotor functions and To improve safety with gait Last Seen Last Seen: This patient was last seen in our office 04/23/24. Pertinent comments regarding their Physical therapy will appear below: EITAN Pt as pt has not rescheduled At this point I will be discontinuing this patient from physical therapy. I would be happy to see this patient again in the future if found appropriate by the physician. Thank you! Gayle Lora, MPT Balance/Gait/Functional tests Balance/Special Test Scores Lower Extremity Functional Score: 25
== END 2024-04-23 19:00 | disposition home or self-care (01) ==
LOC: PT 14:00
PROVIDERS: PCP Internal Medicine; Referring Provider Psychiatry & Neurology Neurology; Visit Provider Psychiatry & Neurology Neurology
DX: G20.A1 Parkinson's disease without dyskinesia, without mention of fluctuations (principal); I95.1 Orthostatic hypotension
CPT/HCPCS: 97110; 97162

== ENCOUNTER 2024-06-08 10:43 | Inpatient (IN) | payer MEDICARE, SELFPAY ==
[2021-04-01 08:35] VITALS: BMI 32.3
[2024-06-08] VITALS (8 sets, daily range): BP systolic 111–159; BP diastolic 69–98; PULSE 77–89; RESP 16–18; TEMP 36.4–36.6; O2SAT 94–100; BMI 27.7; BMI 27.1
--- NOTE | 2024-06-08 11:05 | ED.VIS.FALL ---
HPI HPI - Fall History of Present Illness Chief Complaint: Fall Detail of Chief Complaint: Fall at home times 2. Informant: patient and spouse/S.O. Occured/Mechanism Occurred: Today Mechanism/Context: Yes same level fall Usually ambulates: Walker Pain/Injury Pain Location: none Narrative Narrative: 79 yo male w/ hx of Parkinson's and Dementia. Today unable to walk. Denies recent weakness. Lowered to ground times 2. Denies any injuries or pain. Prior hx w/ same due to UTI. Prior similar symptoms: Yes Recent Illness/Hospitalization: No PFSH PFSH Medical History Orthostatic hypotension Generalized weakness Mild cognitive impairment Parkinson's disease Polyneuropathy BMI 29.0-29.9,adult JOAQUIM (obstructive sleep apnea) Hypersomnolence Incisional hernia History of echocardiogram Wears hearing aid Loss of hearing Wears glasses Anxiety History of steroid therapy Cancer Bladder disease Prostate disease High cholesterol Dietary restriction History of IBS Shortness of breath on exertion Smoker Cardiology follow-up encounter History of irregular heartbeat History of heart attack Fall Carcinoma in situ of skin, unspecified Poorly controlled diabetes mellitus Hypoglycemia Vitamin D deficiency Morbid obesity Hypercholesterolemia Metabolic syndrome Insomnia Neuropathy Hypertensive chronic kidney disease with stage 1 through stage 4 chronic kidney disease, or unspecified chronic kidney disease CAD (coronary artery disease) Chronic sinusitis Osteoarthritis Olecranon bursitis of left elbow Tremor Poor balance Altered mental status Other proteinuria Microalbuminuria Cardiomyopathy, ischemic Presence of stent in coronary artery (~01/28/21) Atherosclerotic heart disease of [place] coronary artery without angina pectoris Depression Fatigue Diarrhea History of colon cancer Multiple adenomatous polyps History of bladder cancer Tobacco abuse Burn of thigh Wound, open, hip or thigh Burn of thigh, left, second degree Cellulitis of right anterior lower leg Cellulitis of right lower extremity Reflex sympathetic dystrophy of right leg Sepsis BPH (benign prostatic hyperplasia) Hyperlipemia Type II diabetes mellitus Hypertension Home Medications ?Medication ?Instructions ?Recorded ?Last Taken ?Type duloxetine 60 mg capsule,delayed 60 mg PO DAILY depression 02/03/15 Unknown History release bupropion HCl 150 mg 24 hr tablet, 150 mg PO DAILY antidepressant 10/04/19 10/14/23 06:00 History extended release rosuvastatin 40 mg tablet 40 mg PO DAILY cholesterol 10/28/20 Unknown History dapagliflozin propanediol 10 mg 10 mg PO DAILY diabetes 01/28/21 Unknown History tablet (Farxiga) losartan 50 mg tablet 50 mg PO QHS blood pressure 01/28/21 10/13/23 History aspirin 81 mg tablet,delayed 81 mg PO DAILY heart health 06/26/21 10/01/23 History release (Adult Aspirin Regimen) metformin 500 mg tablet,extended 500 - 1,000 mg PO TID diabetes 06/26/21 Unknown History release 24 hr Rollaler #1 ea 08/24/21 Unknown Rx Rollator #1 ea 08/24/21 Unknown Rx finasteride 5 mg tablet 5 mg PO DAILY prostate 10/29/21 10/14/23 06:00 History tamsulosin 0.4 mg capsule (Flomax) 0.4 mg PO QHS prostate 10/29/21 10/13/23 History buspirone 15 mg tablet 15 - 30 mg PO BID anxiety 02/15/22 10/14/23 06:00 History insulin degludec 100 5 unit SQ QHS diabetic 30 days #0 01/09/24 10/13/23 Rx unit-liraglutide 3.6 mg/mL(3 mL) mL subcutaneous pen clopidogrel 75 mg tablet 75 mg PO DAILY #90 TABLETS 01/31/24 Unknown Rx metoprolol tartrate 25 mg tablet 25 mg PO BID blood pressure #60 05/21/24 Unknown Rx tabs midodrine 2.5 mg tablet 2.5 mg PO BID #60 tabs 05/24/24 Unknown Rx carbidopa 25 mg-levodopa 100 mg 2 tab PO .qid parkinson's #240 tabs 05/25/24 Unknown Rx tablet (Sinemet) cholecalciferol (vitamin D3) 1,250 1,250 mcg PO QWEEK supplement #4 05/25/24 Unknown Rx mcg (50,000 unit) capsule caps ferrous sulfate 325 mg (65 mg 325 mg PO QDAY #30 tabs 05/25/24 Unknown Rx iron) tablet Allergy/AdvReac Type Severity Reaction Status Date / Time Sulfa (Sulfonamide Allergy Hives Verified 05/24/24 09:41 Antibiotics) hydrocodone (From [place]) AdvReac Intermediate headache Verified 05/24/24 09:41 hydrocodone bitartrate (From AdvReac Nausea Verified 05/24/24 09:41 Vicodin) topiramate (From Topamax) AdvReac memory Verified 05/24/24 09:41 loss Family History Father Heart disease CHF (congestive heart failure) Grandmother Diabetes Grandfather Diabetes Surgical History S/P skin cancer resection S/P TURP History of coronary artery stent placement History of cardiac catheterization Presence of coronary angioplasty implant and graft (~01/28/21) History of colonoscopy History of bladder surgery History of appendectomy History of cholecystectomy History of colectomy History of ankle surgery Social History household members: spouse housing: house Smoking Status: Current every day smoker tobacco type: pipe Smokeless tobacco user: other second hand exposure: No alcohol intake: current alcohol intake frequency: holidays/special occasions only substance use type: does not use caffeine: Yes what type of physical activity do you participate in: none frequency: does not exercise jacob/temple: Religion seatbelt use: sometimes ROS ROS ED ROS Narrative Denies recent illness. Denies fever, denies N.V and D. Constitutional Constitutional ED: Denies chills or fever(s) Eyes Eyes: Denies blurry vision ENT ENT ED: Denies ear pain Cardiovascular Cardiovascular: Denies chest pain Respiratory/Chest Respiratory/Chest: Denies cough or dyspnea Gastrointestinal Gastrointestinal: Denies abdominal pain or constipation Genitourinary Genitourinary ED: Denies dysuria or hematuria Musculoskeletal Musculoskeletal: Denies arthralgias or back pain Integumentary Denies abscess or Abrasions Neurologic Neurologic: Denies headache(s) Psychiatric Psychiatric: Denies anxiety or depression Endocrine Endocrinology: Denies polydipsia Hematologic/Lymphatic Hematologic/Lymphatic: Denies easy bleeding or easy bruising Allergic/Immunologic Allergic/Immunologic ED: Denies mouth swelling EXAM Physical Exam Narrative Exam Narrative: 79 yo male VS are stable and afebrile. No distress. HEENT exam normal. No trauma. Moist mucous membranes. Const Vital Signs: 06/08/24 10:43 06/08/24 10:46 Temperature 97.5 F L Temperature Source Oral Pulse Rate 77 Respiratory Rate 17 Respiratory Effort Normal Blood Pressure 159/98 H Blood Pressure Mean 118 Pulse Ox 97 Oxygen Delivery Method Room Air Positive well nourished and well developed; Negative for cachectic, contractures or unkempt General Appearance ED: well developed and NAD; Negative for unkempt, cachectic or contractures Nutritional Appearance: Negative for cachectic HEENT Reports normocephalic atraumatic; Negative for trauma, contusion, hematoma or tenderness Eyes PERRL and EOMs intact bilaterally Neck full ROM, no lymphadenopathy and supple Chest Wall inspection of chest normal and palpation of chest normal Resp normal respiratory effort, no retractions and clear to auscultation bilaterally Cardio regular rate, regular rhythm, S1 normal heart sound, S2 normal heart sound and no murmurs GI non-tender, non-distended and no masses Palpation: soft; Negative for guarding or rebound tenderness present Back/Spine no CVA tenderness General Back: Negative for CVA tenderness Cervical Spine: Negative for cervical spine tenderness Extremity Extremity Narrative: NT. No trauma. Normal ROM. No deformity. Neuro No oriented x3, CN's II-XII intact bilaterally, moves all extremities and no focal motor deficits Sensorium / Orientation: alert, oriented to person and oriented to place Motor Exam: strength 5/5 throughout Psych mental status grossly normal and thought process normal Appearance: Negative for unkempt Mood & Affect: Negative for depressed, anxious or tearful Skin Lesions: no lesions Rashes: no rashes MDM MDM MDM Narrative Medical decision making narrative: 79 yo male with dementia and Parkinson's. Unable to walk today. Minor falls x 2. No injuries. Repeat exam no change in around 1220. I spoke to the patient family. Nurses tried to stand him he is unable to walk. Urine is questionable for UTI culture will be sent. I spoke to the hospitalist he will be MedSurg observation admission. History & Record Review Discussion w/independent historian: Patient and Family Additional record(s) reviewed:: Prior inpatient record, Prior outpatient record, Prior ED visit and Prior labs Lab Data Attestation: I reviewed the patient's lab results. Lab results narrative: CBC shows a normal white count of 9. H&H 15 and 45. Platelets 300. Electrolytes show potassium of 5.2. Gap 5. BUN 28 creatinine 1.6 glucose 182. Consistent with prior labs from February. Urinalysis shows no red cells. White count of 5-10 with 3+ bacteria. Nitrates are negative. A urine culture be sent. Labs: Laboratory Results - last 24 hr 06/08/24 06/08/24 11:17 11:25 WBC 9.9 RBC 5.12 Hgb 15.2 Hct 45.3 MCV 88.5 MCH 29.7 MCHC 33.6 RDW Std Deviation 45.2 H RDW Coeff of Ranjit 14.2 Plt Count 300 MPV 8.6 Immature Gran % (Auto) 3.100 H Neut % (Auto) 78.2 H Lymph % (Auto) 9.9 L [place] % (Auto) 7.1 Eos % (Auto) 0.8 Baso % (Auto) 0.9 Absolute Neuts (auto) 7.7 Absolute Lymphs (auto) 0.98 Nucleated RBC % 0 Sodium 138 Potassium 5.2 H Chloride 107 Carbon Dioxide 25.0 Anion Gap 5 BUN 28 H Creatinine 1.60 H Estim Creat Clear Calc 36.76 Est GFR (MDRD) Af Amer 54 L Est GFR (MDRD) Non-Af 44 L BUN/Creatinine Ratio 17.5 Glucose 182 H Calcium 10.1 Urine Color Yellow Urine Clarity Sl. Cloudy Urine pH 6.0 Ur Specific [place] 1.020 Urine Protein 30 H Urine Glucose (UA) Normal Urine Ketones 5 H Urine Occult Blood 10 H Urine Nitrite Negative Urine Bilirubin Negative Urine Urobilinogen Normal Ur Leukocyte Esterase 25 H Urine RBC 0 SEEN Urine WBC 5-10 SEEN Ur Squamous Epith Cells 0 SEEN Urine Bacteria 3+ Urine Mucus 0 SEEN Discharge Plan Triage Chief Complaint: Fall ED Provider: Rafy Johnson Dx/Rx/DC Orders Clinical Impression: Falls, History of dementia, History of Parkinson's disease, Generalized weakness, Bacteriuria, Unable to walk Prescriptions: No Action rosuvastatin 40 mg tablet 40 mg PO DAILY Patient Comments: Take 1 tablet by mouth daily aspirin [Adult Aspirin Regimen] 81 mg tablet,delayed release (DR/EC) 81 mg PO DAILY tamsulosin [Flomax] 0.4 mg capsule 0.4 mg PO QHS finasteride 5 mg tablet 5 mg PO DAILY midodrine 2.5 mg tablet 2.5 mg PO BID Qty: 60 4RF Rx Instructions: Take 1 tablet orally every morning and 1 tablet q4PM carbidopa-levodopa [Sinemet] 25-100 mg tablet 2 tab PO .qid Qty: 240 3RF cholecalciferol (vitamin D3) 1,250 mcg (50,000 unit) capsule 1,250 mcg PO QWEEK Qty: 4 3RF Patient Comments: takes it on Tuesday, already taken. ferrous sulfate 325 mg (65 mg iron) tablet 325 mg PO QDAY Qty: 30 3RF Rx Instructions: Do not take within 1 hour of carbidopa/levodopa doses. duloxetine 60 MG capsule 60 mg PO DAILY bupropion HCl 150 MG tablet extended release 24 hr 150 mg PO DAILY buspirone 15 mg tablet 15 - 30 mg PO BID Patient Comments: per pt's takes 4x/day Rx Instructions: 1 TAB AM, 2 TABS QHS losartan 50 mg Tablet 50 mg PO QHS dapagliflozin propanediol [Farxiga] 10 mg Tablet 10 mg PO DAILY metformin 500 mg tablet extended release 24 hr 500 - 1,000 mg PO TID Rx Instructions: 2 at Breakfast, 1 at Lunch, 2 at Dinner insulin degludec-liraglutide 3 ML insulin pen 5 unit SQ QHS 30 Days Qty: 0 0RF Rx Instructions: Hold if glucose less than 130 mg/dl (DME) Rollaler See Rx Instructions .Route .MEDSUPPLY Qty: 1 0RF Rx Instructions: As directed (DME) Rollator See Rx Instructions .Route .MEDSUPPLY Qty: 1 0RF Rx Instructions: ICD 10: Parkinson's disease (G20), 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
[2024-06-08 11:20] LABS: Mucous, Urine 0 SEEN /hpf (<or=2+); Squamous Epithelial Cells - UA 0 SEEN /hpf (0-5)
[2024-06-08 11:24] LABS: Color, Urine Yellow (Yellow); Glucose, Dipstick Normal (Normal); Ketone-Dipstick 5 mg/dl (Negative); Leukocyte Esterase-Dipstick 25 /ul (Negative); Nitrite-Dipstick Negative (Negative); Occult Blood-Urine 10 /ul (Negative); Protein-Dipstick 30 mg/dl (Negative); Urine Bilirubin Dipstick Negative (Negative); Urine Clarity Sl. Cloudy (Clear); Urine Urobilinogen Normal (Normal)
[2024-06-08 12:05] LABS: Absolute Lymphocyte Count 0.98 X10^3/uL (0.83-4.51); Absolute Neutrophil Count 7.7 X10^3/uL (2.0-7.7); Basophil# 0.09 X10^3/uL; Basophil% 0.9 % (0-1); Eosinophil# 0.08 X10^3/uL; Eosinophils% 0.8 % (0-5); Hematocrit 45.3 % (40-54); Hemoglobin 15.2 g/dL (13.0-16.5); Lymphocyte # 0.98 X10^3/ul (0.83-4.51); Lymphocyte % 9.9 % (19-41); Mean Corp Hgb Conc 33.6 g/dL (32-36); Mean Corpuscular Hgb 29.7 pg (27.0-32.0); Mean Corpuscular Volume 88.5 fL (80-94); Mean Platelet Vol. 8.6 fl (6.2-12.0); Monocyte% 7.1 % (0-10); NRBC Flagged by Analyzer 0 % (0-5); Neutrophil # 7.74 X10^3/uL (2.7-7.7); Neutrophil % 78.2 % (47-70); Platelet Count 300 K/mm3 (150-450); RBC Distribution Width CV 14.2 % (11.6-14.6); RBC Distribution Width SD 45.2 fl (35.1-43.9); Red Blood Count 5.12 M/mm3 (4.6-6.2); White Blood Count 9.9 K/mm3 (4.4-11.0)
[2024-06-08 12:06] LABS: Anion Gap 5 (5-15); BUN 28 mg/dL (7-18); BUN/Creat Ratio 17.5 RATIO (10-20); Calcium,Total 10.1 mg/dL (8.5-10.1); Chloride 107 mmol/L (98-107); EST Glomerular Filtration Rate 44 mL/min (>60); Est Glom Filt Rate - Afr Amer 54 mL/min (>60); Estimated Creatinine Clearance 36.76 ml/min; Glucose 182 mg/dL (74-106); Potassium 5.2 mmol/L (3.5-5.1); Sodium Level 138 mmol/L (136-145)
[2024-06-08 12:08] LABS: Bacteria 3+ /hpf (None Seen)
[2024-06-08 12:09] LABS: Red Blood Cells-Urine 0 SEEN /hpf (0-5); White Blood Cells 5-10 SEEN /hpf (0-5)
--- NOTE | 2024-06-08 13:26 | CASEMGMT ---
Care Management Face to Face with patient for initial transition planning/care coordination assessment in the ED. This proposal lead writer introduced self and role at [facility]. Patient alert and oriented. Patient's son, Dionicio, bedside and helped with answering questions. Patient has history of dementia and Parkinson's. Care providers, pharmacy, and demographics verified. Admitting Diagnosis: debility Other diagnosis history: Parkinson's, diabetes mellitus type II, dementia PCP: Kelly Vargas Specialists: patient's , Claribel, reportedly has list on phone (Claribel was out of the room while completing the assessment). [facility]erred [facility] Prescription Benefit: yes Living Will/HPOA: none; patient would like information while admitted and may like to complete documents. LNOK: , Claribel. Son, Dionicio. 2 daughters. Living Arrangements: lives with in a 2 story home with first floor living. No steps to enter. Needs assistance with all ADLs. Transportation: drives. DME: walker, wheelchair, handicap chair for restroom, grab bars, lift chair, glucometer and testing strips, pulse ox, blood pressure cuff HHC: none SNF/Rehab: none Community Resources: none Patient goals: Patient wishes to discharge home with and patient's son would like HHC set up. Patient and patient's son deny any further needs or concerns at this time. Disposition Plan: admission to acute; RN CM/SW to follow for discharge planning needs that may arise. Heidy Mcclure, BILLET STRAIGHTENER, RENTAL SALESPERSON
--- NOTE | 2024-06-08 13:28 | HP.PCM.HOS_ITS ---
[facility] - General General Date of Service: 06/08/24 Chief Complaint: weakness. [facility] Narrative DAFNE OBANDO, is a 79 M who presents with worsening weakness. Patient has Parkinson's disease and lives with family and is normally weak and requires assistance with doing ADLs but he is much more weaker today and fell twice. With his increased weakness, he has had similar events like this when he had urinary tract infection so the to the hospital for evaluation. No evidence of a urinary tract infection but given his profound weakness, the hospital service was contacted for admission. The patient denies any fever chills, sore throat. States has been eating and drinking well recently. [facility] Medical History Orthostatic hypotension Generalized weakness Mild cognitive impairment Parkinson's disease Polyneuropathy BMI 29.0-29.9,adult JOAQUIM (obstructive sleep apnea) Hypersomnolence Incisional hernia History of echocardiogram Wears hearing aid Loss of hearing Wears glasses Anxiety History of steroid therapy Cancer Bladder disease Prostate disease High cholesterol Dietary restriction History of IBS Shortness of breath on exertion Smoker Cardiology follow-up encounter History of irregular heartbeat History of heart attack Fall Carcinoma in situ of skin, unspecified Poorly controlled diabetes mellitus Hypoglycemia Vitamin D deficiency Morbid obesity Hypercholesterolemia Metabolic syndrome Insomnia Neuropathy Hypertensive chronic kidney disease with stage 1 through stage 4 chronic kidney disease, or unspecified chronic kidney disease CAD (coronary artery disease) Chronic sinusitis Osteoarthritis Olecranon bursitis of left elbow Tremor Poor balance Altered mental status Other proteinuria Microalbuminuria Cardiomyopathy, ischemic Presence of stent in coronary artery (~01/28/21) Atherosclerotic heart disease of [place] coronary artery without angina pectoris Depression Fatigue Diarrhea History of colon cancer Multiple adenomatous polyps History of bladder cancer Tobacco abuse Burn of thigh Wound, open, hip or thigh Burn of thigh, left, second degree Cellulitis of right anterior lower leg Cellulitis of right lower extremity Reflex sympathetic dystrophy of right leg Sepsis BPH (benign prostatic hyperplasia) Hyperlipemia Type II diabetes mellitus Hypertension Home Medications ?Medication ?Instructions ?Recorded ?Last Taken ?Type duloxetine 60 mg capsule,delayed 60 mg PO DAILY depres monica 02/03/15 Unknown History release bupropion HCl 150 mg 24 hr tablet, 150 mg PO DAILY ant idepressant 10/04/19 10/14/23 06:00 History extended release rosuvastatin 40 mg tablet 40 mg PO DAILY cholesterol 0 10/28/20 Unknown History dapagliflozin propanediol 10 mg 10 mg PO DAILY diabete s 01/28/21 Unknown History tablet (Farxiga) losartan 50 mg tablet 50 mg PO QHS blood pressure 01/28/21 10/13/23 History aspirin 81 mg tablet,delayed 81 mg PO DAILY heart heal th 06/26/21 10/01/23 History release (Adult Aspirin Regimen) metformin 500 mg tablet,extended 500 - 1,000 mg PO TID diabetes 06/26/21 Unknown History release 24 hr Rollaler #1 ea 08/24/21 Unknown Rx Rollator #1 ea 08/24/21 Unknown Rx finasteride 5 mg tablet 5 mg PO DAILY prostate 10/2910/14/23 06:00 History tamsulosin 0.4 mg capsule (Flomax) 0.4 mg PO QHS prost ate 10/29/21 10/13/23 History buspirone 15 mg tablet 15 - 30 mg PO BID anxiety 10/14/23 06:00 History insulin degludec 100 5 unit SQ QHS diabetic 30 da ys #0 01/09/24 10/13/23 Rx unit-liraglutide 3.6 mg/mL(3 mL) mL subcutaneous pen clopidogrel 75 mg tablet 75 mg PO DAILY #90 TABLETS 1 Unknown Rx metoprolol tartrate 25 mg tablet 25 mg PO BID blood pr essure #60 05/21/24 Unknown Rx tabs midodrine 2.5 mg tablet 2.5 mg PO BID #60 tabs 05/24 Unknown Rx carbidopa 25 mg-levodopa 100 mg 2 tab PO .qid parkinso n's #240 tabs 05/25/24 Unknown Rx tablet (Sinemet) cholecalciferol (vitamin D3) 1,250 1,250 mcg PO QWEEK supplement #4 05/25/24 Unknown Rx mcg (50,000 unit) capsule caps ferrous sulfate 325 mg (65 mg 325 mg PO QDAY #30 tabs 05/25/24 Unknown Rx iron) tablet Allergy/AdvReac Type Severity Reaction Status Date / Time Sulfa (Sulfonamide Allergy Hives Verified 05/24/24 09:41 Antibiotics) hydrocodone (From [place]) AdvReac Intermediate headache Verified 05/24/24 09:41 hydrocodone bitartrate (From AdvReac Nausea Verified 05/24/24 09:41 Vicodin) topiramate (From Topamax) AdvReac memory Verified 05/24/24 09:41 loss Family History Father Heart disease CHF (congestive heart failure) Grandmother Diabetes Grandfather Diabetes Surgical History S/P skin cancer resection S/P TURP History of coronary artery stent placement History of cardiac catheterization Presence of coronary angioplasty implant and graft (~01/28/21) History of colonoscopy History of bladder surgery History of appendectomy History of cholecystectomy History of colectomy History of ankle surgery Social History household members: spouse housing: house Smoking Status: Current every day smoker tobacco type: pipe Smokeless tobacco user: other second hand exposure: No alcohol intake: current alcohol intake frequency: holidays/special occasions only substance use type: does not use caffeine: Yes what type of physical activity do you participate in: none frequency: does not exercise jacob/adventism: Adventism seatbelt use: sometimes MARCUS Orellana Has periods where he kind of phases out in regards to conversation which has been ongoing with his Parkinson's. Seems to get worse when he gets weaker. All review of systems were negative except as mentioned above in the history of present illness and the other review of systems. Vital Signs Vital Signs Vital Signs: 06/08/24 10:43 06/08/24 10:46 06/08/24 12:15 Temperature 36.4 C L Temperature Source Oral Pulse Rate 77 Respiratory Rate 17 Respiratory Effort Normal Blood Pressure 159/98 H 150/91 H Blood Pressure Mean 118 107 Pulse Ox 97 95 Oxygen Delivery Method Room Air 06/08/24 13:01 Temperature 36.5 C L Temperature Source Pulse Rate 89 Respiratory Rate 18 Respiratory Effort Blood Pressure 139/86 H Blood Pressure Mean 103 Pulse Ox 95 Oxygen Delivery Method Weight Weight: 80.3 kg Body Mass Index (BMI) 27.7 Physical Exam Const alert and no apparent distress Resp normal respiratory effort and no retractions GI soft to palpation, non-tender and non-distended Extremity normal to inspection and full ROM Neuro Sensorium / Orientation: awake and alert Speech: speech normal Motor Exam: strength 5/5 throughout Results Lab / Micro Data 06/08/24 11:25 06/08/24 11:25 Labs: Laboratory Results - last 24 hr 06/08/24 11:17: Urine Color Yellow, Urine Clarity Sl. Cloudy, Urine pH 6.0, Ur Specific [place] 1.020, Urine Protein 30 H, Urine Glucose (UA) Normal, Urine Ketones 5 H, Urine Occult Blood 10 H, Urine Nitrite Negative, Urine Bilirubin Negative, Urine Urobilinogen Normal, Ur Leukocyte Esterase 25 H, Urine RBC 0 SEEN, Urine WBC 5-10 SEEN, Ur Squamous Epith Cells 0 SEEN, Urine Bacteria 3+, Urine Mucus 0 SEEN 06/08/24 11:25: WBC 9.9, RBC 5.12, Hgb 15.2, Hct 45.3, MCV 88.5, MCH 29.7, MCHC 33.6, RDW Std Deviation 45.2 H, RDW Coeff of Ranjit 14.2, Plt Count 300, MPV 8.6, I mmature Gran % (Auto) 3.100 H, Neut % (Auto) 78.2 H, Lymph % (Auto) 9.9 L, [place] % (Auto) 7.1, Eos % (Auto) 0.8, Baso % (Auto) 0.9, Absolute Neuts (auto) 7.7, Absolute Lymphs (auto) 0.98, Nucleated RBC % 0, Sodium 138, Potassium 5.2 H, Chloride 107, Carbon Dioxide 25.0, Anion Gap 5, BUN 28 H, Creatinine 1.60 H, Estim Creat Clear Calc 36.76, Est GFR (MDRD) Af Amer 54 L, Est GFR (MDRD) Non-Af 44 L, BUN/Creatinine Ratio 17.5, Glucose 182 H, Calcium 10.1 Assessment & Plan Assessment/Plan (1) Debility: PLAN: Unclear etiology. No evidence of urinary tract infection. Specific gravity is a bit high so it is possible that this could be due to dehydration. Will give IV fluids and reevaluate. Additionally we will have physical, occupational therapy see him. Does report that he has some choking or coughing with eating so a speech therapy evaluated as well. PLAN: Plan Parkinson's sees: Continue with carbidopa levodopa. Depression: Continue with duloxetine Diabetes mellitus type 2: Continue with the baclofen Levsin and metformin. BPH: Continue with tamsulosin VTE prophylaxis with enoxaparin CODE STATUS: Addressed with the patient. Patient and family confirmed full CODE STATUS. Charges/Coding Visit Charges Inpatient E&M: 19712 Init Hosp L2
--- NOTE | 2024-06-08 15:27 | CASEMGMT ---
Discharge Planning A list of SNF & HH providers including quality and resource use data and consistent with the patient's preferred geographic region, medical needs, and insurance network was created in [employer].? This list was provided to the SW. Janessa Mcgovern Discharge Planning Asst.
[2024-06-08] MEDS: 0.9% Normal Saline (1000mL) 1,000 ML 150 ML IV (15:48)
[2024-06-08] MEDS: Carbidopa/Levodopa 25/100 Tablet PO ×2 (16:31→21:58)
[2024-06-08] MEDS: metFORMIN (XR) 500 MG Tablet 1000 MG PO (16:32)
[2024-06-08] MEDS: Midodrine HCl 5 MG Tablet 2.5 MG PO (16:35)
[2024-06-08 19:59] LABS: Bedside Glucose 132 mg/dL (74-106)
[2024-06-08] MEDS: Atorvastatin Calcium 80 MG Tablet PO (21:58)
[2024-06-08] MEDS: Metoprolol Tartrate 25 MG Tablet PO (21:58)
[2024-06-08] MEDS: busPIRone 15 MG TABLET 30 MG PO (21:58)
[2024-06-08] MEDS: Tamsulosin HCl 0.4 MG Capsule PO (21:59)
[2024-06-08] MEDS: Losartan Potassium 50 MG Tablet PO (21:59)
[2024-06-09] VITALS (8 sets, daily range): BP systolic 115–155; BP diastolic 66–97; PULSE 71–90; RESP 16–20; TEMP 36.1–37; O2SAT 93–100
[2024-06-09 03:59] LABS: Absolute Lymphocyte Count 1.72 X10^3/uL (0.83-4.51); Absolute Neutrophil Count 5.4 X10^3/uL (2.0-7.7); Basophil# 0.08 X10^3/uL; Eosinophil# 0.23 X10^3/uL; Eosinophils% 2.8 % (0-5); Hematocrit 37.8 % (40-54); Hemoglobin 12.7 g/dL (13.0-16.5); Lymphocyte # 1.72 X10^3/ul (0.83-4.51); Lymphocyte % 20.7 % (19-41); Mean Corp Hgb Conc 33.6 g/dL (32-36); Mean Corpuscular Hgb 29.5 pg (27.0-32.0); Mean Corpuscular Volume 87.7 fL (80-94); Mean Platelet Vol. 8.8 fl (6.2-12.0); Monocyte# 0.83 X10^3/uL; NRBC Flagged by Analyzer 0 % (0-5); Neutrophil # 5.43 X10^3/uL (2.7-7.7); Neutrophil % 65.1 % (47-70); Platelet Count 262 K/mm3 (150-450); RBC Distribution Width CV 14.3 % (11.6-14.6); RBC Distribution Width SD 46.3 fl (35.1-43.9); Red Blood Count 4.31 M/mm3 (4.6-6.2); White Blood Count 8.3 K/mm3 (4.4-11.0)
[2024-06-09 04:15] LABS: Anion Gap 7 (5-15); BUN 27 mg/dL (7-18); BUN/Creat Ratio 19.9 RATIO (10-20); Calcium,Total 9.4 mg/dL (8.5-10.1); Chloride 112 mmol/L (98-107); Creatinine, Serum 1.36 mg/dL (0.70-1.30); EST Glomerular Filtration Rate 53 mL/min (>60); Est Glom Filt Rate - Afr Amer 65 mL/min (>60); Estimated Creatinine Clearance 39.83 ml/min; Glucose 105 mg/dL (74-106); Potassium 4.7 mmol/L (3.5-5.1); Sodium Level 138 mmol/L (136-145)
[2024-06-09] MEDS: Carbidopa/Levodopa 25/100 Tablet PO ×4 (06:22→23:47)
--- NOTE | 2024-06-09 08:46 | PN.HOSP_ITS ---
Reason for Visit Reason for Visit: Diagnoses Other malaise (06/08/24) Subjective Subjective Confusion overnight. present who reports that he similiar, but less severe bouts at home. Objective Data Objective Data Vital Signs: Vital Signs Temp Pulse Resp BP Pulse Ox O2 Del Method 37.0 C 90 18 119/76 94 Room Air 06/09/24 08:00 06/09/24 08:00 06/09/24 08:00 06/09/24 08:00 06/09/24 08:00 06/09/24 08:19 Oxygen Delivery Method Room Air Weight: 78.698 kg Body Mass Index (BMI) 27.1 Intake & Output: Intake and Output for Last 24 Hours 06/07/24 06/08/24 06/09/24 23:59 23:59 23:59 Intake Total 1200 / 1200 200 / 200 Balance 1200 / 1200 200 / 200 Lab / Micro Data 06/09/24 03:27 06/09/24 03:27 Labs: Laboratory Results - last 24 hr 06/08/24 11:17: Urine Color Yellow, Urine Clarity Sl. Cloudy, Urine pH 6.0, Ur Specific [place] 1.020, Urine Protein 30 H, Urine Glucose (UA) Normal, Urine Ketones 5 H, Urine Occult Blood 10 H, Urine Nitrite Negative, Urine Bilirubin Negative, Urine Urobilinogen Normal, Ur Leukocyte Esterase 25 H, Urine RBC 0 SEEN, Urine WBC 5-10 SEEN, Ur Squamous Epith Cells 0 SEEN, Urine Bacteria 3+, Urine Mucus 0 SEEN 06/08/24 11:25: WBC 9.9, RBC 5.12, Hgb 15.2, Hct 45.3, MCV 88.5, MCH 29.7, MCHC 33.6, RDW Std Deviation 45.2 H, RDW Coeff of Ranjit 14.2, Plt Count 300, MPV 8.6, I mmature Gran % (Auto) 3.100 H, Neut % (Auto) 78.2 H, Lymph % (Auto) 9.9 L, [place] % (Auto) 7.1, Eos % (Auto) 0.8, Baso % (Auto) 0.9, Absolute Neuts (auto) 7.7, Absolute Lymphs (auto) 0.98, Nucleated RBC % 0, Sodium 138, Potassium 5.2 H, Chloride 107, Carbon Dioxide 25.0, Anion Gap 5, BUN 28 H, Creatinine 1.60 H, Estim Creat Clear Calc 36.76, Est GFR (MDRD) Af Amer 54 L, Est GFR (MDRD) Non-Af 44 L, BUN/Creatinine Ratio 17.5, Glucose 182 H, Calcium 10.1 06/08/24 16:38: POC Glucose 132 H 06/09/24 03:27: WBC 8.3, RBC 4.31 L, Hgb 12.7 L, Hct 37.8 L, MCV 87.7, MCH 29.5, MCHC 33.6, RDW Std Deviation 46.3 H, RDW Coeff of Ranjit 14.3, Plt Count 262, MPV 8.8, Immature Gran % (Auto) 0.400, Neut % (Auto) 65.1, Lymph % (Auto) 20.7, [place] % (Auto) 10.0, Eos % (Auto) 2.8, Baso % (Auto) 1.0, Absolute Neuts (auto) 5.4, Absolute Lymphs (auto) 1.72, Nucleated RBC % 0, Sodium 138, Potassium 4.7, C hloride 112 H, Carbon Dioxide 19.0 L, Anion Gap 7, BUN 27 H, Creatinine 1.36 H, Estim Creat Clear Calc 39.83, Est GFR (MDRD) Af Amer 65, Est GFR (MDRD) Non-Af 53 L, BUN/Creatinine Ratio 19.9, Glucose 105, Calcium 9.4 Physical Exam Const alert and no apparent distress HEENT head/scalp atraumatic and moist oral mucous membranes Resp normal respiratory effort, no retractions, no use of accessory muscles and clear to auscultation bilaterally Cardio regular rate, regular rhythm, S1 normal heart sound and S2 normal heart sound GI normal to inspection, nondistended, normoactive bowel sounds, soft to palpation, non-tender and non-distended Assessment & Plan Assessment/Plan (1) Debility: PLAN: Unclear etiology. No evidence of urinary tract infection. Specific gravity is a bit high so it is possible that this could be due to dehydration. Will give IV fluids and reevaluate. Additionally we will have physical, occupational therapy see him. Does report that he has some choking or coughing with eating so a speech therapy evaluated as well. PLAN: Plan Parkinson's sees: Continue with carbidopa levodopa. Patient may have some underlying dementia, complicating this diagnosis. Depression: Continue with duloxetine Diabetes mellitus type 2: Continue with the baclofen Levsin and metformin. BPH: Continue with tamsulosin VTE prophylaxis with enoxaparin CODE STATUS: Addressed with the patient. Patient and family confirmed full CODE STATUS. Charges/Coding Visit Charges Inpatient E&M: 77320 Subs Hosp L2
[2024-06-09] MEDS: Enoxaparin 40 MG/0.4 ML Syringe SC (09:46)
[2024-06-09] MEDS: Aspirin E.C. 81 MG Tablet PO (09:47)
[2024-06-09] MEDS: metFORMIN (XR) 500 MG Tablet 1000 MG PO (09:47)
[2024-06-09] MEDS: Midodrine HCl 5 MG Tablet 2.5 MG PO ×2 (09:50→16:20)
[2024-06-09] MEDS: buPROPion (XL) 150 MG TABLET.XL PO (09:51)
[2024-06-09] MEDS: Metoprolol Tartrate 25 MG Tablet PO ×2 (09:51→23:46)
[2024-06-09] MEDS: Empagliflozin 25 MG Tablet PO (09:52)
[2024-06-09] MEDS: busPIRone 15 MG TABLET PO (09:52)
[2024-06-09] MEDS: Finasteride 5 MG Tablet PO (09:52)
[2024-06-09] MEDS: Clopidogrel Bisulfate 75 MG Tablet PO (09:52)
[2024-06-09 10:12] LABS: Bedside Glucose 152 mg/dL (74-106)
--- NOTE | 2024-06-09 11:27 | CASEMGMT ---
VERENICE MAX in to discuss CHAWLA form with patient. Patient nurse and at bedside attempting to get pt to wake up for medications. Patient agreeable to sign CHAWLA form. RN WINTER explained CHAWLA form, patient voiced understanding. Pt signed form and filed in chart. Pt provided with a copy of signed CHAWLA form. Patient had no further questions or concerns at this time.
[2024-06-09] MEDS: Ferrous Sulfate 325 MG Tablet PO (11:29)
[2024-06-09] MEDS: DULoxetine Hcl 60 MG Capsule PO (11:29)
--- NOTE | 2024-06-09 12:28 | CASEMGMT ---
Social Work SW met w/ in room, pt is sleeping. SW spoke w/ initially about discharge plan, provided to the lists created in [facility] for home health and chcf facilities in pt's insurance plan. thinks pt will need to go somewhere for rehab, her goal is to get pt stronger and get him home. SW asked her to review the list of nursing homes, will have SW Tuesday follow up for choices SW also spoke w/ about POA/LW. She does think pt should do the documents, if able. SW explained will have SW see Tuesday if he is alert and oriented and able to participate in completing the documents. SW did explain to that she would be the decisionmaker should pt not be able to participate in completing the documents. states understanding. SW will continue to follow for SNF placement and completing of POA/LW w/pt, should pt be able. GABRIELLE Salter
[2024-06-09 16:46] LABS: Bedside Glucose 118 mg/dL (74-106)
[2024-06-09] MEDS: busPIRone 15 MG TABLET 30 MG PO (23:45)
[2024-06-09] MEDS: Tamsulosin HCl 0.4 MG Capsule PO (23:46)
[2024-06-09] MEDS: Atorvastatin Calcium 80 MG Tablet PO (23:46)
[2024-06-09] MEDS: Losartan Potassium 50 MG Tablet PO (23:46)
[2024-06-10 04:19] VITALS: BP 146/91; PULSE 71; RESP 16; TEMP 36.1; O2SAT 95
[2024-06-10] MEDS: Carbidopa/Levodopa 25/100 Tablet PO ×4 (06:34→20:56)
[2024-06-10 08:00] VITALS: BP 131/78; PULSE 72; RESP 18; TEMP 36.4; O2SAT 96
[2024-06-10 08:05] VITALS: PULSE 72
[2024-06-10] MEDS: Clopidogrel Bisulfate 75 MG Tablet PO (08:05)
[2024-06-10] MEDS: Finasteride 5 MG Tablet PO (08:05)
[2024-06-10] MEDS: buPROPion (XL) 150 MG TABLET.XL PO (08:05)
[2024-06-10] MEDS: metFORMIN (XR) 500 MG Tablet 1000 MG PO ×2 (08:05→16:29)
[2024-06-10] MEDS: Metoprolol Tartrate 25 MG Tablet PO ×2 (08:05→20:56)
[2024-06-10] MEDS: Empagliflozin 25 MG Tablet PO (08:05)
[2024-06-10] MEDS: Midodrine HCl 5 MG Tablet 2.5 MG PO ×2 (08:06→16:29)
[2024-06-10] MEDS: Aspirin E.C. 81 MG Tablet PO (08:06)
[2024-06-10] MEDS: busPIRone 15 MG TABLET PO (08:06)
[2024-06-10] MEDS: Enoxaparin 40 MG/0.4 ML Syringe SC (08:06)
[2024-06-10] MEDS: DULoxetine Hcl 60 MG Capsule PO (08:08)
--- NOTE | 2024-06-10 09:05 | PCM.PN.HOSP ---
Reason for Visit Reason for Visit: Diagnoses Other malaise (06/08/24) Subjective Subjective Sleeping today. Objective Data Objective Data Vital Signs: Vital Signs Temp Pulse Resp BP Pulse Ox O2 Del Method 36.4 C L 72 18 131/78 H 96 Room Air 06/10/24 08:00 06/10/24 08:05 06/10/24 08:00 06/10/24 08:00 06/10/24 08:00 06/10/24 08:00 Oxygen Delivery Method Room Air Weight: 78.698 kg Body Mass Index (BMI) 27.1 Intake & Output: Intake and Output for Last 24 Hours 06/08/24 06/09/24 06/10/24 23:59 23:59 23:59 Intake Total 1200 / 1200 200 / 200 Balance 1200 / 1200 200 / 200 Lab / Micro Data 06/09/24 03:27 06/09/24 03:27 Labs: Laboratory Results - last 24 hr 06/09/24 09:43: POC Glucose 152 H 06/09/24 16:19: POC Glucose 118 H Micro: Microbiology 06/08/24 11:17 Urine, Random Urine Culture - Preliminary Gram negative amarilis Physical Exam Const no apparent distress Constitutional Narrative: sleeping in chair. HEENT head/scalp atraumatic and moist oral mucous membranes Assessment & Plan Assessment/Plan (1) Debility: PLAN: Unclear etiology. No evidence of urinary tract infection. Specific gravity is a bit high so it is possible that this could be due to dehydration. Will give IV fluids and reevaluate. Additionally we will have physical, occupational therapy see him. Does report that he has some choking or coughing with eating so a speech therapy evaluated as well. PLAN: Plan Parkinson's sees: Continue with carbidopa levodopa. Patient may have some underlying dementia, complicating this diagnosis. Depression: Continue with duloxetine Diabetes mellitus type 2: Continue with the baclofen Levsin and metformin. BPH: Continue with tamsulosin VTE prophylaxis with enoxaparin CODE STATUS: Addressed with the patient. Patient and family confirmed full CODE STATUS. Charges/Coding Visit Charges Inpatient E&M: 21222 Subs Hosp L1
[2024-06-10 09:09] LABS: Bedside Glucose 106 mg/dL (74-106)
[2024-06-10] MEDS: Ferrous Sulfate 325 MG Tablet PO (12:40)
[2024-06-10 14:16] VITALS: BP 129/80; PULSE 74; RESP 18; TEMP 36.5; O2SAT 93
[2024-06-10 20:46] VITALS: BP 128/84; PULSE 78; RESP 22; TEMP 36.9; O2SAT 94
[2024-06-10] MEDS: busPIRone 15 MG TABLET 30 MG PO (20:54)
[2024-06-10] MEDS: Atorvastatin Calcium 80 MG Tablet PO (20:55)
[2024-06-10] MEDS: Losartan Potassium 50 MG Tablet PO (20:55)
[2024-06-10] MEDS: Tamsulosin HCl 0.4 MG Capsule PO (20:55)
[2024-06-10 20:56] VITALS: BP 128/84; PULSE 78
[2024-06-11] VITALS (7 sets, daily range): BP systolic 111–139; BP diastolic 72–88; PULSE 63–72; RESP 16–20; TEMP 36.4–36.8; O2SAT 94–99
[2024-06-11] MEDS: Carbidopa/Levodopa 25/100 Tablet PO ×4 (05:25→22:45)
[2024-06-11] MEDS: Metoprolol Tartrate 25 MG Tablet PO ×2 (08:19→22:44)
[2024-06-11] MEDS: Aspirin E.C. 81 MG Tablet PO (08:20)
[2024-06-11] MEDS: metFORMIN (XR) 500 MG Tablet 1000 MG PO ×2 (08:20→18:02)
[2024-06-11] MEDS: Midodrine HCl 5 MG Tablet 2.5 MG PO ×2 (08:20→17:17)
[2024-06-11] MEDS: busPIRone 15 MG TABLET PO (08:21)
[2024-06-11] MEDS: Empagliflozin 25 MG Tablet PO (08:22)
[2024-06-11] MEDS: Finasteride 5 MG Tablet PO (08:22)
[2024-06-11] MEDS: Clopidogrel Bisulfate 75 MG Tablet PO (08:22)
[2024-06-11] MEDS: Ergocalciferol 1.25 MG (50, 000 UNIT) Capsule PO (08:22)
[2024-06-11] MEDS: buPROPion (XL) 150 MG TABLET.XL PO (08:23)
[2024-06-11] MEDS: Enoxaparin 40 MG/0.4 ML Syringe SC (08:23)
[2024-06-11] MEDS: DULoxetine Hcl 60 MG Capsule PO (08:25)
--- NOTE | 2024-06-11 10:56 | CASEMGMT ---
Social Work SW met w/pt's , son Dionicio, son in law in room. Son in law called his Peyton(pt's daughter), and son Dionicio called daughter Michelle, so they were both on speaker phone. SW spoke w/the family about options. Initially wanted a referral to [facility]. Daughter Michelle Kulkarni([phone]) states she works in a terminal block assembler facility in [place], is very familiar w/the SNF process. She asked about rehab vs TCU. SW spoke w/family and educated them about rehab level vs SNF level of care. Family does not need a rehab list, they would like family to make a referral to rehab and TCU, see if either would take pt and try to get precert. If not, then [facility] is the next choice. SW will keep informed of the process, and and now has daughter Michelle's number as well if needed. SW also spoke w/family about POA/LW, at this time it would not appropriate to complete due to pt's mental status. SW sent referral for Rehab/TCU. SW will wait for a response. GABRIELLE Salter
[2024-06-11] MEDS: Ceftriaxone 1 GM/50 ML BAG IV (11:26)
[2024-06-11] MEDS: Ferrous Sulfate 325 MG Tablet PO (11:27)
[2024-06-11] MEDS: Menthol/Lanolin/Calamine/Znox 113 GM Tube 1 APPLIC TOPICAL ×3 (11:36→22:45)
[2024-06-11] MEDS: 0.9% Normal Saline (100mL Bag) 100 ML 15 ML IV (11:54)
--- NOTE | 2024-06-11 12:36 | PCM.PN.HOSP ---
Reason for Visit Reason for Visit: Diagnoses Other malaise (06/10/24) Subjective Subjective Patient was working with therapy this morning, saw him at bedside this afternoon, present. Patient was laying back comfortably in bed. He was making appropriate eye contact but not answering all questions appropriately. noted that he is still slightly more confused now than his baseline. He continues to be weaker than his baseline as well. She is very concerned about being able to take care of him at home and is amenable to SNF placement. No other new concerns this morning. Objective Data Objective Data Vital Signs: Vital Signs Temp Pulse Resp BP Pulse Ox O2 Del Method 97.8 F 68 18 139/88 H 99 Room Air 06/11/24 08:15 06/11/24 08:19 06/11/24 08:15 06/11/24 08:19 06/11/24 08:15 06/11/24 08:16 Oxygen Delivery Method Room Air Weight: 78.698 kg Body Mass Index (BMI) 27.1 Intake & Output: Intake and Output for Last 24 Hours 06/09/24 06/10/24 06/11/24 23:59 23:59 23:59 Intake Total 200 / 200 Balance 200 / 200 Lab / Micro Data 06/09/24 03:27 06/09/24 03:27 Micro: Microbiology 06/08/24 11:17 Urine, Random Urine Culture - Final Escherichia coli Physical Exam Const alert, no apparent distress and average body habitus Constitutional Narrative: Elderly male, moderately fatigued appearing, making appropriate eye contact but only answering some questions appropriately, otherwise in no acute distress. General Appearance: cooperative and comfortable HEENT normocephalic, head/scalp atraumatic, hearing grossly normal bilaterally, nasal mucous membranes and turbinates normal and moist oral mucous membranes Eyes PERRL, EOMs intact bilaterally and conjunctivae normal Neck full ROM Chest inspection of chest normal Resp normal respiratory effort, normal air movement, no use of accessory muscles and clear to auscultation bilaterally Cardio regular rate, regular rhythm, no murmurs and peripheral pulses 2+ throughout GI normal to inspection, nondistended, normoactive bowel sounds, soft to palpation, non-tender and non-distended Back/Spine normal ROM Extremity normal to inspection and no pedal edema Skin no rashes or lesions noted Neuro moves all extremities and no focal motor deficits Neuro Narrative: Mild parkinsonian tremor noted. Generalized lower extremity weakness. Assessment & Plan Assessment/Plan (1) Unable to walk: (2) Generalized weakness: (3) History of Parkinson's disease: (4) History of dementia: (5) Fatigue: PLAN: Plan Patient is an 79-year-old male who presented [facility] ED on 06/08/2024 with worsening weakness. 1. Acute on chronic debility in setting of Parkinson's disease with suspected cognitive impairment ? PT/OT/case management following. History of Parkinson's disease diagnosed 2 to 3 years ago, follows with neurology. On Sinemet 4 times daily. Had fall x 2 at home on day of admission and had worsening weakness over the days prior to that. Per , tremor has been well-controlled but he has had increased episodes of freezing with his Parkinson's, suspect falls may have been due to this. Has had poor therapy scores while here, planning for SNF placement on discharge. Continue home Sinemet. 2. Recurrent UTI ? UA on admit mildly infectious appearing with 25 leukocyte esterase, negative nitrates, 3+ bacteria. Patient has history of frequent UTIs, is on home Macrobid. Urine culture positive for > 100K E. coli. Will empirically treat with IV ceftriaxone while inpatient and plan for 7-day course of antibiotics total. 3. Nonobstructive CAD, hypertension, hyperlipidemia ? Stable. Continue home aspirin, Plavix, losartan, Lopressor, rosuvastatin. 4. Depression/anxiety ? Stable. Continue home duloxetine and bupropion. 5. BPH with obstructive symptoms ? Continue home finasteride. 6. Type 2 diabetes mellitus ? Blood glucose well-controlled since admission. Continue home metformin 1000 mg twice daily. 7. Mild iron deficiency anemia ? Hemoglobin 12.7 on admit, at baseline. Continue home iron supplement. DVT prophylaxis: Lovenox CODE STATUS: Full code, verified Expected disposition: SNF, medically ready on 06/11, awaiting placement Total clinical time spent by myself addressing the patient's medical issues, reviewing all the data, and collaborating with patient's care team: 35 minutes. Charges/Coding Visit Charges Inpatient E&M: 31052 Subs Hosp L2
[2024-06-11] MEDS: 0.9% Saline Lock 10 ML Syringe IV (13:54)
--- NOTE | 2024-06-11 15:00 | CASEMGMT ---
Social Work Received update from Luisana at [facility] TCU and rehab unit. Patient is declined for both units. Current open beds are spoken for and concern also that patient does require longer term care. Updated discharge plan assistant professor of marine biology who will make referral to [facility]. Met with patient and in room. Granddaughter who is in third grade also present in room. Updated about TCU andreb unit, and that [facility] referral being made. Plan: Referral pending at [facility].-GABRIELLE Tracy, NATIONAL [employer] TRUCK DRIVER *This note was generated with [employer] dictation software. It may contain incorrect words, spelling, and punctuation that were not noted in review of the chart prior to signing*
--- NOTE | 2024-06-11 15:08 | CASEMGMT ---
Addendum entered by Janessa Mcgovern 06/12/24 08:43: [facility] declined d/t no bed availability. Janessa Mcgovern DC Planning Asst. Original Note: Referral sent to [facility]. Janessa Mcgovern DC Planning Asst.
[2024-06-11] MEDS: Ensure Plus High Protein 120 ML LIQUID PO (16:14)
[2024-06-11 16:40] LABS: Bedside Glucose 161 mg/dL (74-106)
--- NOTE | 2024-06-11 18:00 | CASEMGMT ---
Social Work Received update from discharge logistics and planning manager, who reports [facility] does not have open beds until the end of this week, and this is if discharging patients decide not to appeal the discharges once covered by insurance. Met with patient's to update. reviewed the [facility] facility choice list. Next choices are the [facility] and [facility] [place] [place]. -First choice is the [facility] [place] [place] with a private room if available. -Second choice, if only semi private rooms are only available at [facility] and the [facility], would be the [facility]. - asked if patient can go to the [facility], should a bed open up prior to discharge. -Educated that can certainly pivot on discharge destination, though once an accepting facility is found and pre-CERT has been started would need to follow through with that facility. expressed understanding and agreement. Plan: Referral to be made to [facility] and the [facility]. -GABRIELLE Tracy, ATTORNEY LAW CLERK *This note was generated with [employer] dictation software. It may contain incorrect words, spelling, and punctuation that were not noted in review of the chart prior to signing*
[2024-06-11] MEDS: busPIRone 15 MG TABLET 30 MG PO (22:43)
[2024-06-11] MEDS: Atorvastatin Calcium 80 MG Tablet PO (22:44)
[2024-06-11] MEDS: Tamsulosin HCl 0.4 MG Capsule PO (22:44)
[2024-06-11] MEDS: Losartan Potassium 50 MG Tablet PO (22:44)
[2024-06-12 02:35] VITALS: BP 144/83; PULSE 65; RESP 16; TEMP 36.6; O2SAT 98
[2024-06-12] MEDS: 0.9% Saline Lock 10 ML Syringe IV ×2 (04:45→10:25)
[2024-06-12] MEDS: Carbidopa/Levodopa 25/100 Tablet PO ×4 (06:01→22:00)
[2024-06-12] MEDS: Menthol/Lanolin/Calamine/Znox 113 GM Tube 1 APPLIC TOPICAL ×3 (06:02→22:02)
[2024-06-12 06:38] LABS: Hemoglobin 13.7 g/dL (13.0-16.5); Mean Corp Hgb Conc 33.4 g/dL (32-36); Mean Corpuscular Hgb 29.4 pg (27.0-32.0); Mean Platelet Vol. 8.7 fl (6.2-12.0); Platelet Count 269 K/mm3 (150-450); RBC Distribution Width CV 14.4 % (11.6-14.6); RBC Distribution Width SD 46.1 fl (35.1-43.9); Red Blood Count 4.66 M/mm3 (4.6-6.2); White Blood Count 7.4 K/mm3 (4.4-11.0)
[2024-06-12 07:06] LABS: Anion Gap 10 (5-15); BUN 22 mg/dL (7-18); BUN/Creat Ratio 15.2 RATIO (10-20); Calcium,Total 9.9 mg/dL (8.5-10.1); Chloride 107 mmol/L (98-107); Creatinine, Serum 1.45 mg/dL (0.70-1.30); EST Glomerular Filtration Rate 50 mL/min (>60); Est Glom Filt Rate - Afr Amer 60 mL/min (>60); Estimated Creatinine Clearance 37.36 ml/min; Glucose 162 mg/dL (74-106); Potassium 4.8 mmol/L (3.5-5.1); Sodium Level 139 mmol/L (136-145)
[2024-06-12 07:44] VITALS: BP 125/80; PULSE 72; RESP 18; TEMP 36.4; O2SAT 98
[2024-06-12] MEDS: Ensure Plus High Protein 120 ML LIQUID PO ×2 (07:54→12:07)
[2024-06-12] MEDS: Aspirin E.C. 81 MG Tablet PO (07:54)
[2024-06-12] MEDS: Midodrine HCl 5 MG Tablet 2.5 MG PO ×2 (07:55→17:02)
[2024-06-12] MEDS: metFORMIN (XR) 500 MG Tablet 1000 MG PO ×2 (08:02→17:02)
--- NOTE | 2024-06-12 08:48 | CASEMGMT ---
Addendum entered by Janessa Mcgovern 06/12/24 10:22: [facility] declined d/t no bed availability. SW updated. Janessa Mcgovern DC Planning Asst. Original Note: Referral sent to [facility]. Janessa Mcgovern DC Planning Asst.
[2024-06-12] MEDS: buPROPion (XL) 150 MG TABLET.XL PO (10:20)
[2024-06-12] MEDS: Finasteride 5 MG Tablet PO (10:21)
[2024-06-12] MEDS: Clopidogrel Bisulfate 75 MG Tablet PO (10:22)
[2024-06-12] MEDS: Enoxaparin 40 MG/0.4 ML Syringe SC (10:22)
--- NOTE | 2024-06-12 10:22 | CASEMGMT ---
Addendum entered by Janessa Mcgovern 06/15/24 11:55: Precert remains pending. Updates sent to [facility]. Janessa Mcgovern DC Planning Asst. Addendum entered by Janessa Mcgovern 06/12/24 12:10: Pts updated on referral status. Janessa Mcgovern DC Planning Asst. Addendum entered by Janessa Mcgovern 06/12/24 12:03: [facility] has accepted and will submit for precert. SW updated. Janessa Mcgovern DC Planning Asst. Original Note: Referral sent to [facility]. Call placed to Roselyn @ [facility] to alert her of incoming referral. Janessa Mcgovern DC Planning Asst
[2024-06-12] MEDS: DULoxetine Hcl 60 MG Capsule PO (10:23)
[2024-06-12] MEDS: busPIRone 15 MG TABLET PO (10:24)
[2024-06-12] MEDS: Ceftriaxone 1 GM/50 ML BAG IV (10:26)
[2024-06-12] MEDS: Ferrous Sulfate 325 MG Tablet PO (12:06)
[2024-06-12 12:21] VITALS: BP 100/57; PULSE 80
--- NOTE | 2024-06-12 12:32 | PCM.PN.HOSP ---
Reason for Visit Reason for Visit: Diagnoses Difficulty in walking, not elsewhere classified (06/10/24) Weakness (06/10/24) Other malaise (06/10/24) Other fatigue (06/10/24) Personal history of other mental and behavioral disorders (06/10/24) Personal history of other diseases of the nervous system and sense organs (06/10/24) Subjective Subjective Saw patient at bedside this morning, present. Patient appeared similar today to yesterday. No new concerns today. Objective Data Objective Data Vital Signs: Vital Signs Temp Pulse Resp BP Pulse Ox O2 Del Method 97.6 F L 80 18 100/57 L 98 Room Air 06/12/24 07:44 06/12/24 12:21 06/12/24 07:44 06/12/24 12:21 06/12/24 07:44 06/12/24 07:48 Oxygen Delivery Method Room Air Weight: 78.698 kg Body Mass Index (BMI) 27.1 Intake & Output: Intake and Output for Last 24 Hours 06/10/24 06/11/24 06/12/24 23:59 23:59 23:59 Intake Total 750 / 750 550 / 550 Balance 750 / 750 550 / 550 Lab / Micro Data 06/12/24 06:00 06/12/24 06:00 Labs: Laboratory Results - last 24 hr 06/11/24 16:19: POC Glucose 161 H 06/12/24 06:00: WBC 7.4, RBC 4.66, Hgb 13.7, Hct 41.0, MCV 88.0, MCH 29.4, MCHC 33.4, RDW Std Deviation 46.1 H, RDW Coeff of Ranjit 14.4, Plt Count 269, MPV 8.7, Sodium 139, Potassium 4.8, Chloride 107, Carbon Dioxide 21.0, Anion Gap 10, BUN 22 H, Creatinine 1.45 H, Estim Creat Clear Calc 37.36, Est GFR (MDRD) Af Amer 60, Est GFR (MDRD) Non-Af 50 L, BUN/Creatinine Ratio 15.2, Glucose 162 H, Calcium 9.9 Micro: Microbiology 06/08/24 11:17 Urine, Random Urine Culture - Final Escherichia coli Physical Exam Const alert, no apparent distress and average body habitus Constitutional Narrative: Elderly male, mild to moderately fatigued appearing, making appropriate eye contact but only answering some questions appropriately, otherwise in no acute distress. Stable. General Appearance: cooperative and comfortable HEENT normocephalic, head/scalp atraumatic, hearing grossly normal bilaterally, nasal mucous membranes and turbinates normal and moist oral mucous membranes Eyes PERRL, EOMs intact bilaterally and conjunctivae normal Neck full ROM Chest inspection of chest normal Resp normal respiratory effort, normal air movement, no use of accessory muscles and clear to auscultation bilaterally Cardio regular rate, regular rhythm, no murmurs and peripheral pulses 2+ throughout GI normal to inspection, nondistended, normoactive bowel sounds, soft to palpation, non-tender and non-distended Back/Spine normal ROM Extremity normal to inspection and no pedal edema Skin no rashes or lesions noted Neuro moves all extremities and no focal motor deficits Neuro Narrative: Mild parkinsonian tremor noted. Generalized lower extremity weakness. Stable. Assessment & Plan Assessment/Plan (1) Unable to walk: (2) Generalized weakness: (3) History of Parkinson's disease: (4) History of dementia: (5) Fatigue: PLAN: Plan Patient is an 79-year-old male who presented [facility] ED on 06/08/2024 with worsening weakness. 1. Acute on chronic debility in setting of Parkinson's disease with suspected cognitive impairment ? PT/OT/case management following. History of Parkinson's disease diagnosed 2 to 3 years ago, follows with neurology. On Sinemet 4 times daily. Had fall x 2 at home on day of admission and had worsening weakness over the days prior to that. Per , tremor has been well-controlled but he has had increased episodes of freezing with his Parkinson's, suspect falls may have been due to this. Has had poor therapy scores while here, planning for SNF placement on discharge. Medically ready for discharge on 06/11, awaiting placement. Continue home Sinemet. 2. Recurrent UTI ? UA on admit mildly infectious appearing with 25 leukocyte esterase, negative nitrates, 3+ bacteria. Patient has history of frequent UTIs, is on home Macrobid. Urine culture positive for > 100K E. coli. Will empirically treat with IV ceftriaxone while inpatient and plan for 7-day course of antibiotics total. 3. Nonobstructive CAD, hypertension, hyperlipidemia ? Stable. Continue home aspirin, Plavix, losartan, Lopressor, rosuvastatin. 4. Depression/anxiety ? Stable. Continue home duloxetine and bupropion. 5. BPH with obstructive symptoms ? Continue home finasteride. 6. Type 2 diabetes mellitus ? Blood glucose well-controlled since admission. Continue home metformin 1000 mg twice daily. 7. Mild iron deficiency anemia ? Hemoglobin 12.7 on admit, at baseline. Continue home iron supplement. DVT prophylaxis: Lovenox CODE STATUS: Full code, verified Expected disposition: SNF, medically ready on 06/11, awaiting placement Total clinical time spent by myself addressing the patient's medical issues, reviewing all the data, and collaborating with patient's care team: 35 minutes. Charges/Coding Visit Charges Inpatient E&M: 04841 Subs Hosp L2
[2024-06-12 19:49] VITALS: BP 110/66; PULSE 84; RESP 16; TEMP 36.4; O2SAT 96
[2024-06-12] MEDS: Losartan Potassium 50 MG Tablet PO (22:00)
[2024-06-12] MEDS: busPIRone 15 MG TABLET 30 MG PO (22:00)
[2024-06-12 22:01] VITALS: BP 110/66; PULSE 84
[2024-06-12] MEDS: Metoprolol Tartrate 25 MG Tablet PO (22:01)
[2024-06-12] MEDS: Atorvastatin Calcium 80 MG Tablet PO (22:01)
[2024-06-12] MEDS: Tamsulosin HCl 0.4 MG Capsule PO (22:01)
[2024-06-13] VITALS (7 sets, daily range): BP systolic 100–144; BP diastolic 63–95; PULSE 73–88; RESP 15–18; TEMP 36.4–36.9; O2SAT 94–98
[2024-06-13] MEDS: 0.9% Saline Lock 10 ML Syringe IV ×2 (03:30→10:45)
[2024-06-13] MEDS: Menthol/Lanolin/Calamine/Znox 113 GM Tube 1 APPLIC TOPICAL ×3 (05:16→20:42)
[2024-06-13] MEDS: Carbidopa/Levodopa 25/100 Tablet PO ×4 (06:10→20:42)
[2024-06-13] MEDS: Enoxaparin 40 MG/0.4 ML Syringe SC (09:08)
[2024-06-13] MEDS: Clopidogrel Bisulfate 75 MG Tablet PO (09:08)
[2024-06-13] MEDS: metFORMIN (XR) 500 MG Tablet 1000 MG PO ×2 (09:08→17:08)
[2024-06-13] MEDS: Finasteride 5 MG Tablet PO (09:08)
[2024-06-13] MEDS: DULoxetine Hcl 60 MG Capsule PO (09:08)
[2024-06-13] MEDS: Midodrine HCl 5 MG Tablet 2.5 MG PO ×2 (09:08→17:07)
[2024-06-13] MEDS: Aspirin E.C. 81 MG Tablet PO (09:08)
[2024-06-13] MEDS: busPIRone 15 MG TABLET PO (09:08)
[2024-06-13] MEDS: buPROPion (XL) 150 MG TABLET.XL PO (09:08)
--- NOTE | 2024-06-13 10:04 | NURSING ---
pt ambulating w/ mold cooler and this nurse to the bathroom after patient had pulled apart IV and IV site cleansed up. pt up x2 assist when reached the end of the bed pt froze in unsteady pointed toe type stance- similar to parkinson movement but then patient became less responsive. this nurse and mold cooler assisted patient to sit in folded chair. pt more responsive and able to verbalize he felt dizzy. Additional staff requested to room. x3 assist assisted patient back into bed. vs obtained 170/85-79-95% Ra. pt states dizziness feels better per pt's he has these episodes in the past and states he is on medication pt prevent BP from dropping when he gets up. primary RN update
[2024-06-13 10:14] LABS: Bedside Glucose 204 mg/dL (74-106)
[2024-06-13] MEDS: Ceftriaxone 1 GM/50 ML BAG IV (10:45)
--- NOTE | 2024-06-13 11:14 | PN.HOSP_ITS ---
Reason for Visit Reason for Visit: Diagnoses Difficulty in walking, not elsewhere classified (06/10/24) Weakness (06/10/24) Other malaise (06/10/24) Other fatigue (06/10/24) Personal history of other mental and behavioral disorders (06/10/24) Personal history of other diseases of the nervous system and sense organs (06/10/24) Subjective Subjective Saw patient at bedside this morning. Sitting up comfortably in bedside chair, appears similar to yesterday. No new concerns this morning. Objective Data Objective Data Vital Signs: Vital Signs Temp Pulse Resp BP Pulse Ox O2 Del Method 98 F 79 18 110/74 96 Room Air 06/13/24 09:00 06/13/24 10:30 06/13/24 10:30 06/13/24 10:30 06/13/24 10:30 06/13/24 10:30 Oxygen Delivery Method Room Air Weight: 78.698 kg Body Mass Index (BMI) 27.1 Intake & Output: Intake and Output for Last 24 Hours 06/11/24 06/12/24 06/13/24 23:59 23:59 23:59 Intake Total 750 / 750 800 / 800 Balance 750 / 750 800 / 800 Lab / Micro Data 06/12/24 06:00 06/12/24 06:00 Labs: Laboratory Results - last 24 hr 06/13/24 09:56: POC Glucose 204 H Micro: Microbiology 06/08/24 11:17 Urine, Random Urine Culture - Final Escherichia coli Physical Exam Const alert, no apparent distress and average body habitus Constitutional Narrative: Elderly male, mild fatigued appearing, making appropriate eye contact but only answering some questions appropriately, otherwise in no acute distress. Stable. General Appearance: cooperative and comfortable HEENT normocephalic, head/scalp atraumatic, hearing grossly normal bilaterally, nasal mucous membranes and turbinates normal and moist oral mucous membranes Eyes PERRL, EOMs intact bilaterally and conjunctivae normal Neck full ROM Chest inspection of chest normal Resp normal respiratory effort, normal air movement, no use of accessory muscles and clear to auscultation bilaterally Cardio regular rate, regular rhythm, no murmurs and peripheral pulses 2+ throughout GI normal to inspection, nondistended, normoactive bowel sounds, soft to palpation, non-tender and non-distended Back/Spine normal ROM Extremity normal to inspection and no pedal edema Skin no rashes or lesions noted Neuro moves all extremities and no focal motor deficits Neuro Narrative: Mild parkinsonian tremor noted. Generalized lower extremity weakness. Stable. Assessment & Plan Assessment/Plan (1) Unable to walk: (2) Generalized weakness: (3) History of Parkinson's disease: (4) History of dementia: (5) Fatigue: PLAN: Plan Patient is an 79-year-old male who presented [facility] ED on 06/08/2024 with worsening weakness. 1. Acute on chronic debility in setting of Parkinson's disease with suspected cognitive impairment ? PT/OT/case management following. History of Parkinson's disease diagnosed 2 to 3 years ago, follows with neurology. On Sinemet 4 times daily. Had fall x 2 at home on day of admission and had worsening weakness over the days prior to that. Per , tremor has been well-controlled but he has had increased episodes of freezing with his Parkinson's, suspect falls may have been due to this. Has had poor therapy scores while here, planning for SNF placement on discharge. Medically ready for discharge on 06/11, awaiting placement. Continue home Sinemet. 2. Recurrent UTI ? UA on admit mildly infectious appearing with 25 leukocyte esterase, negative nitrates, 3+ bacteria. Patient has history of frequent UTIs, is on home Macrobid. Urine culture positive for > 100K E. coli. Will empirically treat with IV ceftriaxone while inpatient and plan for 7-day course of antibiotics total. 3. Nonobstructive CAD, hypertension, hyperlipidemia ? Stable. Continue home aspirin, Plavix, losartan, Lopressor, rosuvastatin. 4. Depression/anxiety ? Stable. Continue home duloxetine and bupropion. 5. BPH with obstructive symptoms ? Continue home finasteride. 6. Type 2 diabetes mellitus ? Blood glucose well-controlled since admission. Continue home metformin 1000 mg twice daily. 7. Mild iron deficiency anemia ? Hemoglobin 12.7 on admit, at baseline. Continue home iron supplement. DVT prophylaxis: Lovenox CODE STATUS: Full code, verified Expected disposition: SNF, medically ready on 06/11, awaiting placement Total clinical time spent by myself addressing the patient's medical issues, reviewing all the data, and collaborating with patient's care team: 35 minutes. Charges/Coding Visit Charges Inpatient E&M: 91568 Subs Hosp L2
[2024-06-13 12:08] LABS: Bedside Glucose 237 mg/dL (74-106)
[2024-06-13] MEDS: Ferrous Sulfate 325 MG Tablet PO (12:35)
[2024-06-13] MEDS: Ensure Plus High Protein 120 ML LIQUID PO (17:09)
[2024-06-13] MEDS: busPIRone 15 MG TABLET 30 MG PO (20:42)
[2024-06-13] MEDS: Tamsulosin HCl 0.4 MG Capsule PO (20:42)
[2024-06-13] MEDS: Losartan Potassium 50 MG Tablet PO (20:42)
[2024-06-13] MEDS: Metoprolol Tartrate 25 MG Tablet PO (20:42)
[2024-06-13] MEDS: Atorvastatin Calcium 80 MG Tablet PO (20:42)
[2024-06-14] VITALS (7 sets, daily range): BP systolic 94–121; BP diastolic 63–71; PULSE 70–98; RESP 16–18; TEMP 36.3–36.8; O2SAT 94–98
[2024-06-14] MEDS: Carbidopa/Levodopa 25/100 Tablet PO ×4 (04:27→20:10)
[2024-06-14] MEDS: Menthol/Lanolin/Calamine/Znox 113 GM Tube 1 APPLIC TOPICAL ×3 (04:27→20:08)
[2024-06-14 06:31] LABS: Hematocrit 44.2 % (40-54); Hemoglobin 14.4 g/dL (13.0-16.5); Mean Corp Hgb Conc 32.6 g/dL (32-36); Mean Corpuscular Hgb 28.7 pg (27.0-32.0); Mean Corpuscular Volume 88.2 fL (80-94); Mean Platelet Vol. 8.7 fl (6.2-12.0); Platelet Count 321 K/mm3 (150-450); RBC Distribution Width CV 14.6 % (11.6-14.6); RBC Distribution Width SD 46.5 fl (35.1-43.9); Red Blood Count 5.01 M/mm3 (4.6-6.2); White Blood Count 10.1 K/mm3 (4.4-11.0)
[2024-06-14 06:51] LABS: Anion Gap 8 (5-15); BUN 27 mg/dL (7-18); BUN/Creat Ratio 16.1 RATIO (10-20); Calcium,Total 10.4 mg/dL (8.5-10.1); Chloride 108 mmol/L (98-107); Creatinine, Serum 1.68 mg/dL (0.70-1.30); EST Glomerular Filtration Rate 42 mL/min (>60); Est Glom Filt Rate - Afr Amer 51 mL/min (>60); Estimated Creatinine Clearance 32.24 ml/min; Glucose 191 mg/dL (74-106); Potassium 4.5 mmol/L (3.5-5.1); Sodium Level 138 mmol/L (136-145)
[2024-06-14] MEDS: Midodrine HCl 5 MG Tablet 2.5 MG PO ×2 (08:32→16:55)
[2024-06-14] MEDS: Aspirin E.C. 81 MG Tablet PO (08:32)
[2024-06-14] MEDS: metFORMIN (XR) 500 MG Tablet 1000 MG PO ×2 (08:32→16:55)
[2024-06-14] MEDS: buPROPion (XL) 150 MG TABLET.XL PO (10:19)
[2024-06-14] MEDS: DULoxetine Hcl 60 MG Capsule PO (10:19)
[2024-06-14] MEDS: Enoxaparin 40 MG/0.4 ML Syringe SC (10:19)
[2024-06-14] MEDS: busPIRone 15 MG TABLET PO (10:19)
[2024-06-14] MEDS: Clopidogrel Bisulfate 75 MG Tablet PO (10:19)
[2024-06-14] MEDS: Finasteride 5 MG Tablet PO (10:20)
[2024-06-14] MEDS: Cephalexin 500 MG Capsule PO ×2 (10:23→20:08)
--- NOTE | 2024-06-14 10:48 | PCM.PN.HOSP ---
Reason for Visit Reason for Visit: Diagnoses Difficulty in walking, not elsewhere classified (06/10/24) Weakness (06/10/24) Other malaise (06/10/24) Other fatigue (06/10/24) Personal history of other mental and behavioral disorders (06/10/24) Personal history of other diseases of the nervous system and sense organs (06/10/24) Subjective Subjective Saw patient at bedside this morning, present. Patient sitting up in bedside chair comfortably, in no acute distress. Appears similar yesterday. No new concerns this morning. Objective Data Objective Data Vital Signs: Vital Signs Temp Pulse Resp BP Pulse Ox O2 Del Method 97.6 F L 80 16 94/63 94 Room Air 06/14/24 10:03 06/14/24 10:19 06/14/24 10:03 06/14/24 10:19 06/14/24 10:03 06/14/24 10:03 Oxygen Delivery Method Room Air Weight: 78.698 kg Body Mass Index (BMI) 27.1 Intake & Output: Intake and Output for Last 24 Hours 06/12/24 06/13/24 06/14/24 23:59 23:59 23:59 Intake Total 800 / 800 50 / 50 Balance 800 / 800 50 / 50 Lab / Micro Data 06/14/24 06:14 06/14/24 06:14 Labs: Laboratory Results - last 24 hr 06/13/24 11:50: POC Glucose 237 H 06/14/24 06:14: WBC 10.1, RBC 5.01, Hgb 14.4, Hct 44.2, MCV 88.2, MCH 28.7, MCHC 32.6, RDW Std Deviation 46.5 H, RDW Coeff of Ranjit 14.6, Plt Count 321, MPV 8.7, Sodium 138, Potassium 4.5, Chloride 108 H, Carbon Dioxide 22.0, Anion Gap 8, BUN 27 H, Creatinine 1.68 H, Estim Creat Clear Calc 32.24, Est GFR (MDRD) Af Amer 51 L, Est GFR (MDRD) Non-Af 42 L, BUN/Creatinine Ratio 16.1, Glucose 191 H, Calcium 10.4 H Micro: Microbiology 06/08/24 11:17 Urine, Random Urine Culture - Final Escherichia coli Physical Exam Const alert, no apparent distress and average body habitus Constitutional Narrative: Elderly male, mildly fatigued appearing, making appropriate eye contact but only answering some questions appropriately, otherwise in no acute distress. Stable. General Appearance: cooperative and comfortable HEENT normocephalic, head/scalp atraumatic, hearing grossly normal bilaterally, nasal mucous membranes and turbinates normal and moist oral mucous membranes Eyes PERRL, EOMs intact bilaterally and conjunctivae normal Neck full ROM Chest inspection of chest normal Resp normal respiratory effort, normal air movement, no use of accessory muscles and clear to auscultation bilaterally Cardio regular rate, regular rhythm, no murmurs and peripheral pulses 2+ throughout GI normal to inspection, nondistended, normoactive bowel sounds, soft to palpation, non-tender and non-distended Back/Spine normal ROM Extremity normal to inspection and no pedal edema Skin no rashes or lesions noted Neuro moves all extremities and no focal motor deficits Neuro Narrative: Mild parkinsonian tremor noted. Generalized lower extremity weakness. Stable. Assessment & Plan Assessment/Plan (1) Unable to walk: (2) Generalized weakness: (3) History of Parkinson's disease: (4) History of dementia: (5) Fatigue: PLAN: Plan Patient is an 79-year-old male who presented [facility] ED on 06/08/2024 with worsening weakness. 1. Acute on chronic debility in setting of Parkinson's disease with suspected cognitive impairment ? PT/OT/case management following. History of Parkinson's disease diagnosed 2 to 3 years ago, follows with neurology. On Sinemet 4 times daily. Had fall x 2 at home on day of admission and had worsening weakness over the days prior to that. Per , tremor has been well-controlled but he has had increased episodes of freezing with his Parkinson's, suspect falls may have been due to this. Has had poor therapy scores while here, planning for SNF placement on discharge. Medically ready for discharge on 06/11, awaiting placement. Continue home Sinemet. 2. Recurrent UTI ? UA on admit mildly infectious appearing with 25 leukocyte esterase, negative nitrates, 3+ bacteria. Patient has history of frequent UTIs, is on home Macrobid. Urine culture positive for > 100K E. coli. Treated with IV ceftriaxone through 06/13, switched to p.o. Keflex on 06/14 and preparation for discharge. Will complete 7-day course total, stop date 06/17. 3. Nonobstructive CAD, hypertension, hyperlipidemia ? Stable. Continue home aspirin, Plavix, losartan, Lopressor, rosuvastatin. 4. Depression/anxiety ? Stable. Continue home duloxetine and bupropion. 5. BPH with obstructive symptoms ? Continue home finasteride. 6. Type 2 diabetes mellitus ? Blood glucose well-controlled since admission. Continue home metformin 1000 mg twice daily. 7. Mild iron deficiency anemia ? Hemoglobin 12.7 on admit, at baseline. Continue home iron supplement. DVT prophylaxis: Lovenox CODE STATUS: Full code, verified Expected disposition: SNF, medically ready on 06/11, awaiting placement Total clinical time spent by myself addressing the patient's medical issues, reviewing all the data, and collaborating with patient's care team: 35 minutes. Charges/Coding Visit Charges Inpatient E&M: 04197 Subs Hosp L2
[2024-06-14] MEDS: Ferrous Sulfate 325 MG Tablet PO (12:32)
[2024-06-14] MEDS: Ensure Plus High Protein 120 ML LIQUID PO (12:35)
[2024-06-14] MEDS: Losartan Potassium 50 MG Tablet PO (20:09)
[2024-06-14] MEDS: Metoprolol Tartrate 25 MG Tablet PO (20:09)
[2024-06-14] MEDS: busPIRone 15 MG TABLET 30 MG PO (20:10)
[2024-06-14] MEDS: Tamsulosin HCl 0.4 MG Capsule PO (20:10)
[2024-06-14] MEDS: Atorvastatin Calcium 80 MG Tablet PO (20:11)
[2024-06-15 04:58] VITALS: BP 118/87; PULSE 71; RESP 18; TEMP 36.3; O2SAT 96
[2024-06-15] MEDS: Carbidopa/Levodopa 25/100 Tablet PO ×4 (05:03→22:08)
[2024-06-15] MEDS: Menthol/Lanolin/Calamine/Znox 113 GM Tube 1 APPLIC TOPICAL ×3 (05:03→22:12)
[2024-06-15] MEDS: Aspirin E.C. 81 MG Tablet PO (09:28)
[2024-06-15] MEDS: busPIRone 15 MG TABLET PO (09:29)
[2024-06-15] MEDS: Midodrine HCl 5 MG Tablet 2.5 MG PO ×2 (09:29→17:41)
[2024-06-15] MEDS: metFORMIN (XR) 500 MG Tablet 1000 MG PO ×2 (09:29→17:36)
[2024-06-15] MEDS: DULoxetine Hcl 60 MG Capsule PO (09:29)
[2024-06-15] MEDS: Enoxaparin 40 MG/0.4 ML Syringe SC (09:30)
[2024-06-15] MEDS: Finasteride 5 MG Tablet PO (09:30)
[2024-06-15] MEDS: buPROPion (XL) 150 MG TABLET.XL PO (09:30)
[2024-06-15] MEDS: Clopidogrel Bisulfate 75 MG Tablet PO (09:30)
[2024-06-15] MEDS: Cephalexin 500 MG Capsule PO ×2 (09:30→22:10)
[2024-06-15 10:02] VITALS: BP 92/54; PULSE 82; RESP 14; TEMP 36.5; O2SAT 94
--- NOTE | 2024-06-15 12:28 | CASEMGMT ---
Social Work PAS/RR completed in the [facility] system, no further review needed. Copy printed for the chart. GABRIELLE Salter
[2024-06-15] MEDS: Lactated Ringers 1,000 ML 250 ML IV (12:42)
[2024-06-15] MEDS: Ferrous Sulfate 325 MG Tablet PO (12:56)
--- NOTE | 2024-06-15 13:35 | PN.HOSP_ITS ---
Reason for Visit Reason for Visit: Diagnoses Difficulty in walking, not elsewhere classified (06/10/24) Weakness (06/10/24) Other malaise (06/10/24) Other fatigue (06/10/24) Personal history of other mental and behavioral disorders (06/10/24) Personal history of other diseases of the nervous system and sense organs (06/10/24) Subjective Subjective Saw patient at bedside this morning, present. Patient appeared similar today to previous days. No new concerns today. Objective Data Objective Data Vital Signs: Vital Signs Temp Pulse Resp BP Pulse Ox O2 Del Method 97.7 F L 82 14 92/54 L 94 Room Air 06/15/24 10:02 06/15/24 10:02 06/15/24 10:02 06/15/24 10:02 06/15/24 10:02 06/15/24 10:02 Oxygen Delivery Method Room Air Weight: 78.698 kg Body Mass Index (BMI) 27.1 Intake & Output: Intake and Output for Last 24 Hours 06/13/24 06/14/24 06/15/24 23:59 23:59 23:59 Intake Total 50 / 50 200 / 400 700 / 700 Balance 50 / 50 200 / 400 700 / 700 Lab / Micro Data 06/14/24 06:14 06/14/24 06:14 Micro: Microbiology 06/08/24 11:17 Urine, Random Urine Culture - Final Escherichia coli Physical Exam Const alert, no apparent distress and average body habitus Constitutional Narrative: Elderly male, mildly fatigued appearing, making appropriate eye contact but only answering some questions appropriately, otherwise in no acute distress. Stable. General Appearance: cooperative and comfortable HEENT normocephalic, head/scalp atraumatic, hearing grossly normal bilaterally, nasal mucous membranes and turbinates normal and moist oral mucous membranes Eyes PERRL, EOMs intact bilaterally and conjunctivae normal Neck full ROM Chest inspection of chest normal Resp normal respiratory effort, normal air movement, no use of accessory muscles and clear to auscultation bilaterally Cardio regular rate, regular rhythm, no murmurs and peripheral pulses 2+ throughout GI normal to inspection, nondistended, normoactive bowel sounds, soft to palpation, non-tender and non-distended Back/Spine normal ROM Extremity normal to inspection and no pedal edema Skin no rashes or lesions noted Neuro moves all extremities and no focal motor deficits Neuro Narrative: Mild parkinsonian tremor noted. Generalized lower extremity weakness. Stable. Assessment & Plan Assessment/Plan (1) Unable to walk: (2) Generalized weakness: (3) History of Parkinson's disease: (4) History of dementia: (5) Fatigue: PLAN: Plan Patient is an 79-year-old male who presented [facility] ED on 06/08/2024 with worsening weakness. 1. Acute on chronic debility in setting of Parkinson's disease with suspected cognitive impairment ? PT/OT/case management following. History of Parkinson's disease diagnosed 2 to 3 years ago, follows with neurology. On Sinemet 4 times daily. Had fall x 2 at home on day of admission and had worsening weakness over the days prior to that. Per , tremor has been well-controlled but he has had increased episodes of freezing with his Parkinson's, suspect falls may have been due to this. Has had poor therapy scores while here, planning for SNF placement on discharge. Medically ready for discharge on 06/11, awaiting placement. Continue home Sinemet. 2. Recurrent UTI ? UA on admit mildly infectious appearing with 25 leukocyte esterase, negative nitrates, 3+ bacteria. Patient has history of frequent UTIs, is on home Macrobid. Urine culture positive for > 100K E. coli. Treated with IV ceftriaxone through 06/13, switched to p.o. Keflex on 06/14 and preparation for discharge. Will complete 7-day course total, stop date 06/17. 3. Nonobstructive CAD, hypertension, hyperlipidemia ? Stable. Continue home aspirin, Plavix, losartan, Lopressor, rosuvastatin. 4. Depression/anxiety ? Stable. Continue home duloxetine and bupropion. 5. BPH with obstructive symptoms ? Continue home finasteride. 6. Type 2 diabetes mellitus ? Blood glucose well-controlled since admission. Continue home metformin 1000 mg twice daily. 7. Mild iron deficiency anemia ? Hemoglobin 12.7 on admit, at baseline. Continue home iron supplement. DVT prophylaxis: Lovenox CODE STATUS: Full code, verified Expected disposition: SNF, medically ready on 06/11, awaiting placement Total clinical time spent by myself addressing the patient's medical issues, reviewing all the data, and collaborating with patient's care team: 35 minutes. Charges/Coding Visit Charges Inpatient E&M: 17898 Subs Hosp L2
[2024-06-15 17:00] VITALS: BP 100/65; PULSE 78; RESP 14; TEMP 36.7; O2SAT 93
--- NOTE | 2024-06-15 17:15 | CASEMGMT ---
Social Work- Discharge pending precert to [facility], under skilled level of care. Pt cannot discharge until precert obtained. PASRR completed and on chart.?In case of possible weekend discharge, green sheet and transport form on chart for nursing to follow for final discharge arrangements/notifications to SNF, patient/family.? Plan: [facility]; pend precert CLARITZA Louis
[2024-06-15 22:06] VITALS: BP 117/57; PULSE 65; RESP 16; TEMP 36.7; O2SAT 95
[2024-06-15] MEDS: Losartan Potassium 50 MG Tablet PO (22:10)
[2024-06-15] MEDS: Atorvastatin Calcium 80 MG Tablet PO (22:10)
[2024-06-15] MEDS: busPIRone 15 MG TABLET 30 MG PO (22:10)
[2024-06-15 22:11] VITALS: BP 117/57; PULSE 65
[2024-06-15] MEDS: Metoprolol Tartrate 25 MG Tablet PO (22:11)
[2024-06-15] MEDS: Tamsulosin HCl 0.4 MG Capsule PO (22:16)
[2024-06-16] MEDS: Menthol/Lanolin/Calamine/Znox 113 GM Tube 1 APPLIC TOPICAL ×3 (05:05→23:16)
[2024-06-16 05:07] VITALS: BP 119/70; PULSE 65; RESP 16; TEMP 36.6; O2SAT 98
[2024-06-16] MEDS: Carbidopa/Levodopa 25/100 Tablet PO ×4 (05:59→23:16)
[2024-06-16 09:50] VITALS: BP 116/71; PULSE 86; RESP 19; TEMP 36.4; O2SAT 97
--- NOTE | 2024-06-16 09:57 | PCM.PN.HOSP ---
Reason for Visit Reason for Visit: Diagnoses Difficulty in walking, not elsewhere classified (06/10/24) Weakness (06/10/24) Other malaise (06/10/24) Other fatigue (06/10/24) Personal history of other mental and behavioral disorders (06/10/24) Personal history of other diseases of the nervous system and sense organs (06/10/24) Subjective Subjective Saw patient at bedside this morning, present. Appears similar this morning to previous days, no new concerns today. Objective Data Objective Data Vital Signs: Vital Signs Temp Pulse Resp BP Pulse Ox O2 Del Method 97.8 F 65 16 119/70 98 Room Air 06/16/24 05:07 06/16/24 05:07 06/16/24 05:07 06/16/24 05:07 06/16/24 05:07 06/16/24 05:07 Oxygen Delivery Method Room Air Weight: 78.698 kg Body Mass Index (BMI) 27.1 Intake & Output: Intake and Output for Last 24 Hours 06/14/24 06/15/24 06/16/24 23:59 23:59 23:59 Intake Total 200 / 400 1950 / 2150 350 / 350 Balance 200 / 400 1950 / 2150 350 / 350 Lab / Micro Data 06/14/24 06:14 06/14/24 06:14 Micro: Microbiology 06/08/24 11:17 Urine, Random Urine Culture - Final Escherichia coli Physical Exam Const alert, no apparent distress and average body habitus Constitutional Narrative: Elderly male, mildly fatigued appearing, making appropriate eye contact but only answering some questions appropriately, otherwise in no acute distress. Stable. General Appearance: cooperative and comfortable HEENT normocephalic, head/scalp atraumatic, hearing grossly normal bilaterally, nasal mucous membranes and turbinates normal and moist oral mucous membranes Eyes PERRL, EOMs intact bilaterally and conjunctivae normal Neck full ROM Chest inspection of chest normal Resp normal respiratory effort, normal air movement, no use of accessory muscles and clear to auscultation bilaterally Cardio regular rate, regular rhythm, no murmurs and peripheral pulses 2+ throughout GI normal to inspection, nondistended, normoactive bowel sounds, soft to palpation, non-tender and non-distended Back/Spine normal ROM Extremity normal to inspection and no pedal edema Skin no rashes or lesions noted Neuro moves all extremities and no focal motor deficits Neuro Narrative: Mild parkinsonian tremor noted. Generalized lower extremity weakness. Stable. Assessment & Plan Assessment/Plan (1) Unable to walk: (2) Generalized weakness: (3) History of Parkinson's disease: (4) History of dementia: (5) Fatigue: PLAN: Plan Patient is an 79-year-old male who presented [facility] ED on 06/08/2024 with worsening weakness. 1. Acute on chronic debility in setting of Parkinson's disease with suspected cognitive impairment ? PT/OT/case management following. History of Parkinson's disease diagnosed 2 to 3 years ago, follows with neurology. On Sinemet 4 times daily. Had fall x 2 at home on day of admission and had worsening weakness over the days prior to that. Per , tremor has been well-controlled but he has had increased episodes of freezing with his Parkinson's, suspect falls may have been due to this. Has had poor therapy scores while here, planning for SNF placement on discharge. Medically ready for discharge on 06/11, awaiting placement. Continue home Sinemet. 2. Recurrent UTI ? UA on admit mildly infectious appearing with 25 leukocyte esterase, negative nitrates, 3+ bacteria. Patient has history of frequent UTIs, is on home Macrobid. Urine culture positive for > 100K E. coli. Treated with IV ceftriaxone through 06/13, switched to p.o. Keflex on 06/14 and preparation for discharge. Will complete 7-day course total, stop date 06/17. 3. Nonobstructive CAD, hypertension, hyperlipidemia ? Stable. Continue home aspirin, Plavix, losartan, Lopressor, rosuvastatin. 4. Depression/anxiety ? Stable. Continue home duloxetine and bupropion. 5. BPH with obstructive symptoms ? Continue home finasteride. 6. Type 2 diabetes mellitus ? Blood glucose well-controlled since admission. Continue home metformin 1000 mg twice daily. 7. Mild iron deficiency anemia ? Hemoglobin 12.7 on admit, at baseline. Continue home iron supplement. DVT prophylaxis: Lovenox CODE STATUS: Full code, verified Expected disposition: SNF, medically ready on 06/11, awaiting placement Total clinical time spent by myself addressing the patient's medical issues, reviewing all the data, and collaborating with patient's care team: 35 minutes. Charges/Coding Visit Charges Inpatient E&M: 25058 Subs Hosp L2
[2024-06-16] MEDS: Cephalexin 500 MG Capsule PO ×2 (09:59→23:18)
[2024-06-16] MEDS: Finasteride 5 MG Tablet PO (10:00)
[2024-06-16] MEDS: Enoxaparin 40 MG/0.4 ML Syringe SC (10:00)
[2024-06-16] MEDS: Aspirin E.C. 81 MG Tablet PO (10:02)
[2024-06-16] MEDS: DULoxetine Hcl 60 MG Capsule PO (10:03)
[2024-06-16] MEDS: metFORMIN (XR) 500 MG Tablet 1000 MG PO ×2 (10:03→17:37)
[2024-06-16] MEDS: buPROPion (XL) 150 MG TABLET.XL PO (10:04)
[2024-06-16 10:05] VITALS: PULSE 87
[2024-06-16] MEDS: Clopidogrel Bisulfate 75 MG Tablet PO (10:05)
[2024-06-16] MEDS: Metoprolol Tartrate 25 MG Tablet PO (10:05)
[2024-06-16] MEDS: busPIRone 15 MG TABLET PO (10:05)
[2024-06-16] MEDS: Ferrous Sulfate 325 MG Tablet PO (10:06)
[2024-06-16] MEDS: Ensure Plus High Protein 120 ML LIQUID PO (10:10)
[2024-06-16] MEDS: Midodrine HCl 5 MG Tablet 2.5 MG PO ×2 (10:10→17:37)
[2024-06-16 15:40] VITALS: BP 94/56; PULSE 79; RESP 18; TEMP 36.4; O2SAT 94
[2024-06-16 23:11] VITALS: BP 103/79; PULSE 82; RESP 16; TEMP 36.7; O2SAT 99
[2024-06-16] MEDS: Atorvastatin Calcium 80 MG Tablet PO (23:17)
[2024-06-16] MEDS: busPIRone 15 MG TABLET 30 MG PO (23:17)
[2024-06-16 23:19] VITALS: BP 103/79
[2024-06-16] MEDS: Tamsulosin HCl 0.4 MG Capsule PO (23:19)
[2024-06-17] VITALS (9 sets, daily range): BP systolic 117–160; BP diastolic 70–90; PULSE 62–88; RESP 16–18; TEMP 36.4–36.6; O2SAT 95–100
[2024-06-17] MEDS: Carbidopa/Levodopa 25/100 Tablet PO ×4 (06:55→20:27)
[2024-06-17] MEDS: Menthol/Lanolin/Calamine/Znox 113 GM Tube 1 APPLIC TOPICAL ×3 (06:55→20:28)
[2024-06-17] MEDS: metFORMIN (XR) 500 MG Tablet 1000 MG PO ×2 (09:17→17:25)
[2024-06-17] MEDS: Aspirin E.C. 81 MG Tablet PO (09:17)
[2024-06-17] MEDS: Midodrine HCl 5 MG Tablet 2.5 MG PO (09:17)
--- NOTE | 2024-06-17 09:42 | PCM.PN.HOSP ---
Reason for Visit Reason for Visit: Diagnoses Difficulty in walking, not elsewhere classified (06/10/24) Weakness (06/10/24) Other malaise (06/10/24) Other fatigue (06/10/24) Personal history of other mental and behavioral disorders (06/10/24) Personal history of other diseases of the nervous system and sense organs (06/10/24) Subjective Subjective Saw patient at bedside this morning, present. Patient appeared similar to previous mornings. No new concerns today. Objective Data Objective Data Vital Signs: Vital Signs Temp Pulse Resp BP Pulse Ox O2 Del Method 97.5 F L 62 16 135/75 H 95 Room Air 06/17/24 04:32 06/17/24 04:32 06/17/24 04:32 06/17/24 04:32 06/17/24 04:32 06/17/24 04:32 Oxygen Delivery Method Room Air Weight: 78.698 kg Body Mass Index (BMI) 27.1 Intake & Output: Intake and Output for Last 24 Hours 06/15/24 06/16/24 06/17/24 23:59 23:59 23:59 Intake Total 19490 830 / 830 100 / 100 Balance 1949 / 2149 830 / 830 100 / 100 Lab / Micro Data 06/14/24 06:14 06/14/24 06:14 Micro: Microbiology 06/08/24 11:17 Urine, Random Urine Culture - Final Escherichia coli Physical Exam Const alert, no apparent distress and average body habitus Constitutional Narrative: Elderly male, mildly fatigued appearing, making appropriate eye contact but only answering some questions appropriately, otherwise in no acute distress. Stable. General Appearance: cooperative and comfortable HEENT normocephalic, head/scalp atraumatic, hearing grossly normal bilaterally, nasal mucous membranes and turbinates normal and moist oral mucous membranes Eyes PERRL, EOMs intact bilaterally and conjunctivae normal Neck full ROM Chest inspection of chest normal Resp normal respiratory effort, normal air movement, no use of accessory muscles and clear to auscultation bilaterally Cardio regular rate, regular rhythm, no murmurs and peripheral pulses 2+ throughout GI normal to inspection, nondistended, normoactive bowel sounds, soft to palpation, non-tender and non-distended Back/Spine normal ROM Extremity normal to inspection and no pedal edema Skin no rashes or lesions noted Neuro moves all extremities and no focal motor deficits Neuro Narrative: Mild parkinsonian tremor noted. Generalized lower extremity weakness. Stable. Assessment & Plan Assessment/Plan (1) Unable to walk: (2) Generalized weakness: (3) History of Parkinson's disease: (4) History of dementia: (5) Fatigue: PLAN: Plan Patient is an 79-year-old male who presented [facility] ED on 06/08/2024 with worsening weakness. 1. Acute on chronic debility in setting of Parkinson's disease with suspected cognitive impairment ? PT/OT/case management following. History of Parkinson's disease diagnosed 2 to 3 years ago, follows with neurology. On Sinemet 4 times daily. Had fall x 2 at home on day of admission and had worsening weakness over the days prior to that. Per , tremor has been well-controlled but he has had increased episodes of freezing with his Parkinson's, suspect falls may have been due to this. Has had poor therapy scores while here, planning for SNF placement on discharge. Medically ready for discharge on 06/11, awaiting placement. Continue home Sinemet. 2. Recurrent UTI ? UA on admit mildly infectious appearing with 25 leukocyte esterase, negative nitrates, 3+ bacteria. Patient has history of frequent UTIs, is on home Macrobid. Urine culture positive for > 100K E. coli. Treated with IV ceftriaxone through 06/13, switched to p.o. Keflex on 06/14 and preparation for discharge. Will complete 7-day course total, stop date 06/17. 3. Nonobstructive CAD, hypertension, hyperlipidemia ? Stable. Continue home aspirin, Plavix, losartan, Lopressor, rosuvastatin. 4. Depression/anxiety ? Stable. Continue home duloxetine and bupropion. 5. BPH with obstructive symptoms ? Continue home finasteride. 6. Type 2 diabetes mellitus ? Blood glucose well-controlled since admission. Continue home metformin 1000 mg twice daily. 7. Mild iron deficiency anemia ? Hemoglobin 12.7 on admit, at baseline. Continue home iron supplement. DVT prophylaxis: Lovenox CODE STATUS: Full code, verified Expected disposition: SNF, medically ready on 06/11, awaiting placement Total clinical time spent by myself addressing the patient's medical issues, reviewing all the data, and collaborating with patient's care team: 35 minutes. Charges/Coding Visit Charges Inpatient E&M: 42481 Subs Hosp L2
[2024-06-17] MEDS: Clopidogrel Bisulfate 75 MG Tablet PO (10:49)
[2024-06-17] MEDS: busPIRone 15 MG TABLET PO (10:49)
[2024-06-17] MEDS: Metoprolol Tartrate 25 MG Tablet PO ×2 (10:49→20:28)
[2024-06-17] MEDS: Finasteride 5 MG Tablet PO (10:49)
[2024-06-17] MEDS: Cephalexin 500 MG Capsule PO ×2 (10:49→20:27)
[2024-06-17] MEDS: DULoxetine Hcl 60 MG Capsule PO (10:49)
[2024-06-17] MEDS: buPROPion (XL) 150 MG TABLET.XL PO (10:50)
[2024-06-17] MEDS: Enoxaparin 40 MG/0.4 ML Syringe SC (10:51)
[2024-06-17] MEDS: Ferrous Sulfate 325 MG Tablet PO (13:03)
[2024-06-17] MEDS: Ensure Plus High Protein 120 ML LIQUID PO (17:24)
[2024-06-17] MEDS: Tamsulosin HCl 0.4 MG Capsule PO (20:26)
[2024-06-17] MEDS: MELATONIN 3 MG TABLET PO (20:26)
[2024-06-17] MEDS: Losartan Potassium 50 MG Tablet PO (20:27)
[2024-06-17] MEDS: busPIRone 15 MG TABLET 30 MG PO (20:27)
[2024-06-17] MEDS: Atorvastatin Calcium 80 MG Tablet PO (20:28)
[2024-06-18] MEDS: Menthol/Lanolin/Calamine/Znox 113 GM Tube 1 APPLIC TOPICAL ×2 (06:33→14:10)
[2024-06-18] MEDS: Carbidopa/Levodopa 25/100 Tablet PO ×2 (06:33→11:56)
[2024-06-18 06:35] VITALS: BP 135/73; PULSE 67; RESP 16; TEMP 36.3; O2SAT 97
[2024-06-18 08:53] VITALS: BP 122/74; PULSE 69; RESP 18; TEMP 36.4; O2SAT 95
[2024-06-18] MEDS: Midodrine HCl 5 MG Tablet 2.5 MG PO (08:59)
[2024-06-18] MEDS: metFORMIN (XR) 500 MG Tablet 1000 MG PO (08:59)
[2024-06-18] MEDS: Aspirin E.C. 81 MG Tablet PO (08:59)
[2024-06-18 09:00] VITALS: PULSE 69
[2024-06-18] MEDS: Finasteride 5 MG Tablet PO (09:00)
[2024-06-18] MEDS: Clopidogrel Bisulfate 75 MG Tablet PO (09:00)
[2024-06-18] MEDS: Enoxaparin 40 MG/0.4 ML Syringe SC (09:00)
[2024-06-18] MEDS: DULoxetine Hcl 60 MG Capsule PO (09:00)
[2024-06-18] MEDS: Ergocalciferol 1.25 MG (50, 000 UNIT) Capsule PO (09:00)
[2024-06-18] MEDS: busPIRone 15 MG TABLET PO (09:00)
[2024-06-18] MEDS: Metoprolol Tartrate 25 MG Tablet PO (09:00)
--- NOTE | 2024-06-18 09:00 | CASEMGMT ---
[facility] has obtained auth to admit. SW and physician updated. Janessa Mcgovern DC Planning Asst.
[2024-06-18] MEDS: buPROPion (XL) 150 MG TABLET.XL PO (09:01)
--- NOTE | 2024-06-18 11:19 | PCM.TXEXTCAR ---
Diet Diet Order/Speech Therapy: 06/11/24 08:29 Diet: Regular - General Food consistency:: Soft & Bite Sized Liquid Consistency:: Regular/Thin Routine Orders/Code Status Routine Lab Work: CBC and BMP Code Status: Full Code DC O2, CPAP, BIPAP needs Home O2 Discharge instructions: No Wound(s) upper L back: Wound Type: skin tag removal right buttocks: Wound Type: scab Therapies Physical Therapy: Eval and Treat Occupational Therapy: Eval and Treat Problem/Diagnosis (1) Unable to walk: Status: Acute Code(s): R26.2 - Difficulty in walking, not elsewhere classified (2) Generalized weakness: Status: Acute Code(s): R53.1 - Weakness (3) History of Parkinson's disease: Status: Acute Code(s): Z86.69 - Personal history of other diseases of the nervous system and sense organs (4) History of dementia: Status: Acute Code(s): Z86.59 - Personal history of other mental and behavioral disorders (5) Fatigue: Status: Acute Code(s): R53.83 - Other fatigue Allergies/Procedures Done in Hospital Allergies Sulfa (Sulfonamide Antibiotics) Allergy (Verified 05/24/24 09:41) Hives hydrocodone (From [place]) Adverse Reaction (Intermediate, Verified 05/24/24 09:41) headache hydrocodone bitartrate (From Vicodin) Adverse Reaction (Verified 05/24/24 09:41) Nausea topiramate (From Topamax) Adverse Reaction (Verified 05/24/24 09:41) memory loss Procedures: None Type of Care/Length of Stay Estimated LOS: Convalescent Care Less Than 30 days Type of Care Needed: Skilled Rehab Potential: Fair Prognosis: Fair Additional Orders/Day of Discharge Day of Discharge: 06/18/24 Dietary and Speech Recommendations Dietitian Recommendations/Changes: Will continue regular diet - 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 Discharge Plan Admission Admit Date/Time: 06/10/24 14:54 Attending Provider: Js Moreno Primary Care Provider: Kelly Vargas Consulting Providers: Raheel Basurto; Declan Charles Discharge Orders/Prescriptions Prescriptions: Continued rosuvastatin 40 mg tablet 40 mg PO DAILY Patient Comments: Take 1 tablet by mouth daily aspirin [Adult Aspirin Regimen] 81 mg tablet,delayed release (DR/EC) 81 mg PO DAILY tamsulosin [Flomax] 0.4 mg capsule 0.4 mg PO QHS finasteride 5 mg tablet 5 mg PO DAILY midodrine 2.5 mg tablet 2.5 mg PO BID Qty: 60 4RF Rx Instructions: Take 1 tablet orally every morning and 1 tablet q4PM carbidopa-levodopa [Sinemet] 25-100 mg tablet 2 tab PO .qid Qty: 240 3RF cholecalciferol (vitamin D3) 1,250 mcg (50,000 unit) capsule 1,250 mcg PO QWEEK Qty: 4 3RF Patient Comments: takes it on Tuesday, already taken. ferrous sulfate 325 mg (65 mg iron) tablet 325 mg PO QDAY Qty: 30 3RF Rx Instructions: Do not take within 1 hour of carbidopa/levodopa doses. duloxetine 60 MG capsule 60 mg PO BID bupropion HCl 150 MG tablet extended release 24 hr 150 mg PO DAILY buspirone 15 mg tablet 15 mg PO .COMPLEX Patient Comments: per pt's takes 4x/day Rx Instructions: 15 mg orally 4 times daily; losartan 50 mg Tablet 50 mg PO QHS dapagliflozin propanediol [Farxiga] 10 mg Tablet 10 mg PO DAILY metformin 500 mg tablet extended release 24 hr 500 - 1,000 mg PO TID Rx Instructions: 2 at Breakfast, 1 at Lunch, 2 at Dinner nitrofurantoin macrocrystal 100 mg capsule 100 mg PO QHS Patient Comments: [NO ORIGINAL SIG] insulin degludec-liraglutide 3 ML insulin pen 5 unit SQ QHS 30 Days Qty: 0 0RF Rx Instructions: Hold if glucose less than 130 mg/dl (DME) Rollaler See Rx Instructions .Route .MEDSUPPLY Qty: 1 0RF Rx Instructions: As directed (DME) Rollator See Rx Instructions .Route .MEDSUPPLY Qty: 1 0RF Rx Instructions: ICD 10: Parkinson's disease (G20), 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
[2024-06-18] MEDS: Ferrous Sulfate 325 MG Tablet PO (11:56)
[2024-06-18] MEDS: Ensure Plus High Protein 120 ML LIQUID PO (11:57)
--- NOTE | 2024-06-18 13:24 | CASEMGMT ---
Discharge Discharge orders, signed med list, and transport time sent to [facility]. Physicians will transport pt by cot at 2:30p. Nursing, SW, pt, and his updated. Janessa Mcgovern DC Planning Asst.
--- NOTE | 2024-06-18 13:25 | CASEMGMT ---
Social Work Precert has been obtained.? Physician updated and pt is ready for discharge today.? Discharge documentation previously completed. DCA to complete final notifications to pt and family. Disposition:[facility], skilled level of care under convalescent stay. CLARITZA Louis
[2024-06-18 14:07] VITALS: BP 116/73; PULSE 65; RESP 18; TEMP 36.4; O2SAT 98
--- NOTE | 2024-06-18 14:17 | PHA.DC.MR.R ---
Pharmacy [place] Med Reconciliation Pharmacy Service has performed discharge medication reconciliation for this patient. The patient's discharge medication list was reviewed for discrepancies and discrepancies were resolved. Medications at Discharge Home Medications duloxetine 60 mg capsule,delayed release 60 mg PO BID depression 02/03/15 bupropion HCl 150 mg 24 hr tablet, extended release 150 mg PO DAILY antidepressant 10/04/19 rosuvastatin 40 mg tablet 40 mg PO DAILY cholesterol 10/28/20 dapagliflozin propanediol 10 mg tablet (Farxiga) 10 mg PO DAILY diabetes 01/28/21 losartan 50 mg tablet 50 mg PO QHS blood pressure 01/28/21 aspirin 81 mg tablet,delayed release (Adult Aspirin Regimen) 81 mg PO DAILY heart health 06/26/21 metformin 500 mg tablet,extended release 24 hr 500 - 1,000 mg PO TID diabetes 06/26/21 Rollaler #1 ea 08/24/21 Rollator #1 ea 08/24/21 finasteride 5 mg tablet 5 mg PO DAILY prostate 10/29/21 tamsulosin 0.4 mg capsule (Flomax) 0.4 mg PO QHS prostate 10/29/21 buspirone 15 mg tablet 15 mg PO .COMPLEX anxiety 02/15/22 insulin degludec 100 unit-liraglutide 3.6 mg/mL(3 mL) subcutaneous pen 5 unit SQ QHS diabetic 30 days #0 mL 01/09/24 clopidogrel 75 mg tablet 75 mg PO DAILY #90 TABLETS 01/31/24 metoprolol tartrate 25 mg tablet 25 mg PO BID blood pressure #60 tabs 05/21/24 midodrine 2.5 mg tablet 2.5 mg PO BID #60 tabs 05/24/24 carbidopa 25 mg-levodopa 100 mg tablet (Sinemet) 2 tab PO .qid parkinson's #240 tabs 05/25/24 cholecalciferol (vitamin D3) 1,250 mcg (50,000 unit) capsule 1,250 mcg PO QWEEK supplement #4 caps 05/25/24 ferrous sulfate 325 mg (65 mg iron) tablet 325 mg PO QDAY #30 tabs 05/25/24 nitrofurantoin macrocrystal 100 mg capsule 100 mg PO QHS 06/08/24 istradefylline 20 mg tablet (Nourianz) 20 mg PO QDAY #30 tabs 06/12/24
--- NOTE | 2024-06-18 14:22 | NURSING ---
Report called to Destiny at [facility] [phone]. Pt to be picked up at 14:30.
--- NOTE | 2024-06-18 16:05 | DS.PCM_ITS ---
Providers Date of Admission: 06/10/24 Primary Care Physician: Dr. Kelly Vargas DO Reason For Visit: DEBILILTY Diagnosis Discharge Diagnosis (1) Unable to walk: Status: Acute Code(s): R26.2 - Difficulty in walking, not elsewhere classified (2) Generalized weakness: Status: Acute Code(s): R53.1 - Weakness (3) History of Parkinson's disease: Status: Acute Code(s): Z86.69 - Personal history of other diseases of the nervous system and sense organs (4) History of dementia: Status: Acute Code(s): Z86.59 - Personal history of other mental and behavioral disorders (5) Fatigue: Status: Acute Code(s): R53.83 - Other fatigue Medications at Discharge Home Medications duloxetine 60 mg capsule,delayed release 60 mg PO BID depression 02/03/15 bupropion HCl 150 mg 24 hr tablet, extended release 150 mg PO DAILY antidepressant 10/04/19 rosuvastatin 40 mg tablet 40 mg PO DAILY cholesterol 10/28/20 dapagliflozin propanediol 10 mg tablet (Farxiga) 10 mg PO DAILY diabetes 01/28/21 losartan 50 mg tablet 50 mg PO QHS blood pressure 01/28/21 aspirin 81 mg tablet,delayed release (Adult Aspirin Regimen) 81 mg PO DAILY heart health 06/26/21 metformin 500 mg tablet,extended release 24 hr 500 - 1,000 mg PO TID diabetes 06/26/21 Rollaler #1 ea 08/24/21 Rollator #1 ea 08/24/21 finasteride 5 mg tablet 5 mg PO DAILY prostate 10/29/21 tamsulosin 0.4 mg capsule (Flomax) 0.4 mg PO QHS prostate 10/29/21 buspirone 15 mg tablet 15 mg PO .COMPLEX anxiety 02/15/22 insulin degludec 100 unit-liraglutide 3.6 mg/mL(3 mL) subcutaneous pen 5 unit SQ QHS diabetic 30 days #0 mL 01/09/24 clopidogrel 75 mg tablet 75 mg PO DAILY #90 TABLETS 01/31/24 metoprolol tartrate 25 mg tablet 25 mg PO BID blood pressure #60 tabs 05/21/24 midodrine 2.5 mg tablet 2.5 mg PO BID #60 tabs 05/24/24 carbidopa 25 mg-levodopa 100 mg tablet (Sinemet) 2 tab PO .qid parkinson's #240 tabs 05/25/24 cholecalciferol (vitamin D3) 1,250 mcg (50,000 unit) capsule 1,250 mcg PO QWEEK supplement #4 caps 05/25/24 ferrous sulfate 325 mg (65 mg iron) tablet 325 mg PO QDAY #30 tabs 05/25/24 nitrofurantoin macrocrystal 100 mg capsule 100 mg PO QHS 06/08/24 istradefylline 20 mg tablet (Nourianz) 20 mg PO QDAY #30 tabs 06/12/24 Hospital Course Operations None Procedures None Summary of Care Provided Minutes Spent on Discharge: 32 Hospital Course: Per HPI: DAFNE OBANDO, is a 79 M who presents with worsening weakness. Patient has Parkinson's disease and lives with family and is normally weak and requires assistance with doing ADLs but he is much more weaker today and fell twice. With his increased weakness, he has had similar events like this when he had urinary tract infection so the to the hospital for evaluation. No evidence of a urinary tract infection but given his profound weakness, the hospital service was contacted for admission. The patient denies any fever chills, sore throat. States has been eating and drinking well recently. Hospital Course: 1. Acute on chronic debility in setting of Parkinson's disease with suspected cognitive impairment ? PT/OT/case management following. History of Parkinson's disease diagnosed 2 to 3 years ago, follows with neurology. On Sinemet 4 times daily. Had fall x 2 at home on day of admission and had worsening weakness over the days prior to that. Per , tremor has been well-controlled but he has had increased episodes of freezing with his Parkinson's, suspect falls may have been due to this. Has had poor therapy scores while here, planning for SNF placement on discharge. Medically ready for discharge on 06/11, awaiting placement. Continue home Sinemet. 06/18/2024: Doing well with PT/OT, recommending transfer to SNF. I discussed with him the possibility for discharge today he expressed understanding of going to the custodial and would like to go today to start his physical therapy. 2. Recurrent UTI ? UA on admit mildly infectious appearing with 25 leukocyte esterase, negative nitrates, 3+ bacteria. Patient has history of frequent UTIs, is on home Macrobid. Urine culture positive for > 100K E. coli. Treated with IV ceftriaxone through 06/13, switched to p.o. Keflex on 06/14 and preparation for discharge. Will complete 7-day course total, stop date 06/17. 06/18/2024: He completed antibiotics for an E. coli UTI. He takes Macrobid at home daily as a preventative. 3. Nonobstructive CAD, hypertension, hyperlipidemia ? Stable. Continue home aspirin, Plavix, losartan, Lopressor, rosuvastatin. 4. Depression/anxiety ? Stable. Continue home duloxetine and bupropion. 5. BPH with obstructive symptoms ? Continue home finasteride. 6. Type 2 diabetes mellitus ? Blood glucose well-controlled since admission. Continue home metformin 1000 mg twice daily. 7. Mild iron deficiency anemia ? Hemoglobin 12.7 on admit, at baseline. Continue home iron supplement. Physical Exam Narrative General: Alert, Oriented x1, Cooperative, No apparent distress HEENT: Atraumatic, PERRLA, EOMI, Normocephalic Oral: Moist Mucosa Neck: Supple, No JVD Lungs: Diminished, Normal air movement, No rhonchi, No wheeze, No rales Cardiovascular: Regular rate, Regular Rhythm, Normal S1, Normal S2, No murmurs Abdomen: Soft, Non Tender, Non-Distended, No Hepato-splenomegaly Extremities: No edema, Capillary Refill Less than 3 Seconds Skin: No rashes, No breakdown Musculoskeletal: No Tenderness to Palpation of Joints or Extremities Neurological: No focal neurological deficits, moves all extremities, mild tremor Psych/Mental Status: Normal Affect, Appropriate Weight / BMI Weight Weight: 173 lb 8 oz Body Mass Index (BMI) 27.1 ABG / Lab / Microbiology Data 06/14/24 06:14 06/14/24 06:14 Microbiology: Microbiology 06/08/24 11:17 Urine, Random Urine Culture - Final Escherichia coli D/C Instructions DC O2, CPAP, BIPAP Needs Home O2 Discharge instructions: No Meaningful Use Info Meaningful Use Meaningful Use Diagnoses (Choose all that apply): None applicable Ischemic Stroke Statin Dosing Therapy Reference: STATIN DOSE THERAPY REFERENCE: * Patients > 75 years receive moderate or high dose statin therapy. * Patients 75 years or YOUNGER should receive HIGH intensity statin dose unless contraindicated. You will be required to document reason for non-treatment if statin daily dose does not meet guidelines. HIGH DOSE STATIN THERAPY DAILY Atorvastatin > than or = to 40 mg Rosuvastatin > than or = to 20 mg Amlodipine + Atorvastatin > than or = to 2.5/40 mg Ezetimibe + Simvastatin 10/80 mg Simvastatin 80mg Discharge Plan Admission Admit Date/Time: 06/10/24 14:54 Attending Provider: Js Moreno Primary Care Provider: Klely Vargas Consulting Providers: Raheel Basurto; Declan Charles Discharge Orders/Prescriptions Prescriptions: Continued rosuvastatin 40 mg tablet 40 mg PO DAILY Patient Comments: Take 1 tablet by mouth daily aspirin [Adult Aspirin Regimen] 81 mg tablet,delayed release (DR/EC) 81 mg PO DAILY tamsulosin [Flomax] 0.4 mg capsule 0.4 mg PO QHS finasteride 5 mg tablet 5 mg PO DAILY midodrine 2.5 mg tablet 2.5 mg PO BID Qty: 60 4RF Rx Instructions: Take 1 tablet orally every morning and 1 tablet q4PM carbidopa-levodopa [Sinemet] 25-100 mg tablet 2 tab PO .qid Qty: 240 3RF cholecalciferol (vitamin D3) 1,250 mcg (50,000 unit) capsule 1,250 mcg PO QWEEK Qty: 4 3RF Patient Comments: takes it on Tuesday, already taken. ferrous sulfate 325 mg (65 mg iron) tablet 325 mg PO QDAY Qty: 30 3RF Rx Instructions: Do not take within 1 hour of carbidopa/levodopa doses. duloxetine 60 MG capsule 60 mg PO BID bupropion HCl 150 MG tablet extended release 24 hr 150 mg PO DAILY buspirone 15 mg tablet 15 mg PO .COMPLEX Patient Comments: per pt's takes 4x/day Rx Instructions: 15 mg orally 4 times daily; losartan 50 mg Tablet 50 mg PO QHS dapagliflozin propanediol [Farxiga] 10 mg Tablet 10 mg PO DAILY metformin 500 mg tablet extended release 24 hr 500 - 1,000 mg PO TID Rx Instructions: 2 at Breakfast, 1 at Lunch, 2 at Dinner nitrofurantoin macrocrystal 100 mg capsule 100 mg PO QHS Patient Comments: [NO ORIGINAL SIG] insulin degludec-liraglutide 3 ML insulin pen 5 unit SQ QHS 30 Days Qty: 0 0RF Rx Instructions: Hold if glucose less than 130 mg/dl (DME) Rollaler See Rx Instructions .Route .MEDSUPPLY Qty: 1 0RF Rx Instructions: As directed (DME) Rollator See Rx Instructions .Route .MEDSUPPLY Qty: 1 0RF Rx Instructions: ICD 10: Parkinson's disease (G20), 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
== END 2024-06-18 15:10 | disposition skilled nursing facility (03) | DRG 690 ==
LOC: ED 13:55 → MS3 14:21
PROVIDERS: Hospitalist; Emergency Provider Emergency Medicine; PCP Internal Medicine; Visit Provider Family Medicine
DX: N39.0 Urinary tract infection, site not specified (principal); E11.22 Type 2 diabetes mellitus with diabetic chronic kidney disease; D50.9 Iron deficiency anemia, unspecified; E78.00 Pure hypercholesterolemia, unspecified; B96.20 Unspecified Escherichia coli [E. coli] as the cause of diseases classified elsewhere; G20.A1 Parkinson's disease without dyskinesia, without mention of fluctuations; F02.80 Dementia in other diseases classified elsewhere, unspecified severity, without behavioral disturbance, psychotic disturbance, mood disturbance, and anxiety; F32.A Depression, unspecified; I12.9 Hypertensive chronic kidney disease with stage 1 through stage 4 chronic kidney disease, or unspecified chronic kidney disease; N18.9 Chronic kidney disease, unspecified; I25.10 Atherosclerotic heart disease of native coronary artery without angina pectoris; F41.9 Anxiety disorder, unspecified; R26.2 Difficulty in walking, not elsewhere classified; I25.2 Old myocardial infarction; Z79.4 Long term (current) use of insulin; F17.290 Nicotine dependence, other tobacco product, uncomplicated; R53.81 Other malaise; N13.8 Other obstructive and reflux uropathy; Z79.84 Long term (current) use of oral hypoglycemic drugs; Z95.5 Presence of coronary angioplasty implant and graft; R53.1 Weakness; Z79.02 Long term (current) use of antithrombotics/antiplatelets; N40.1 Benign prostatic hyperplasia with lower urinary tract symptoms; Z85.828 Personal history of other malignant neoplasm of skin; Z85.038 Personal history of other malignant neoplasm of large intestine; Z85.51 Personal history of malignant neoplasm of bladder; Z79.899 Other long term (current) drug therapy; Z79.82 Long term (current) use of aspirin; Z90.49 Acquired absence of other specified parts of digestive tract
CPT/HCPCS: 36415; 80048; 81001; 82962; 85025; 85027; 87077; 87086; 87088; 87186; 92526; 92610; 97116; 97162; 97166; 97530; 97535; 99285; A4216

== ENCOUNTER → 2024-07-30 | Outpatient (CLI) | payer MEDICARE, SELFPAY ==
[2021-04-01 08:35] VITALS: BMI 32.3
== END | disposition home or self-care (01) ==
PROVIDERS: PCP Internal Medicine; Referring Provider Psychiatry & Neurology Neurology; Visit Provider Psychiatry & Neurology Neurology
DX: I95.1 Orthostatic hypotension (principal); R56.9 Unspecified convulsions
CPT/HCPCS: 95819

== ENCOUNTER → 2024-08-30 | Outpatient (CLI) | payer MEDICARE, SELFPAY ==
[2021-04-01 08:35] VITALS: BMI 32.3
[2024-08-30 14:13] LABS: Mucous, Urine 0 SEEN /hpf (<or=2+)
[2024-08-30 16:04] LABS: Glucose, Dipstick Normal (Normal); Ketone-Dipstick 5 mg/dl (Negative); Leukocyte Esterase-Dipstick 100 /ul (Negative); Nitrite-Dipstick Negative (Negative); Occult Blood-Urine 250 /ul (Negative); Protein-Dipstick 100 mg/dl (Negative); Urine Bilirubin Dipstick Negative (Negative); Urine Urobilinogen Normal (Normal)
[2024-08-30 16:06] LABS: Color, Urine Yellow (Yellow)
[2024-08-30 16:07] LABS: Urine Clarity Cloudy (Clear)
[2024-08-30 19:33] LABS: Bacteria 2+ /hpf (None Seen)
[2024-08-30 19:34] LABS: Red Blood Cells-Urine > 100 SEEN /hpf (0-5); Squamous Epithelial Cells - UA 0-5 SEEN /hpf (0-5); White Blood Cells 50-100 SEEN /hpf (0-5)
== END | disposition home or self-care (01) ==
PROVIDERS: PCP Internal Medicine; Referring Provider Psychiatry & Neurology Neurology; Visit Provider Psychiatry & Neurology Neurology
DX: N39.0 Urinary tract infection, site not specified (principal); R26.9 Unspecified abnormalities of gait and mobility; R53.83 Other fatigue
CPT/HCPCS: 81001; 87077; 87086; 87088; 87186

== ENCOUNTER → 2024-10-11 | Outpatient (CLI) | payer MEDICARE, SELFPAY ==
[2021-04-01 08:35] VITALS: BMI 32.3
[2024-10-11 15:14] LABS: Hematocrit 45.8 % (40-54); Hemoglobin 15.1 g/dL (13.0-16.5); Mean Corpuscular Hgb 30.3 pg (27.0-32.0); Mean Corpuscular Volume 91.8 fL (80-94); Mean Platelet Vol. 8.6 fl (6.2-12.0); Platelet Count 334 K/mm3 (150-450); RBC Distribution Width SD 43.8 fl (35.1-43.9); Red Blood Count 4.99 M/mm3 (4.6-6.2); White Blood Count 10.6 K/mm3 (4.4-11.0)
[2024-10-11 16:05] LABS: Ferritin 52 ng/mL (37-417); Iron 70 ug/dL (65-175)
== END | disposition home or self-care (01) ==
LOC: MTLAB 13:45
PROVIDERS: PCP Internal Medicine; Referring Provider Psychiatry & Neurology Neurology; Visit Provider Psychiatry & Neurology Neurology
DX: D64.9 Anemia, unspecified (principal)
CPT/HCPCS: 36415; 82728; 83540; 85027

== ENCOUNTER → 2025-02-07 | Outpatient (CLI) | payer MEDICARE, SELFPAY ==
[2021-04-01 08:35] VITALS: BMI 32.3
== END | disposition home or self-care (01) ==
LOC: MTLAB 16:35
PROVIDERS: PCP Internal Medicine; Referring Provider Urology; Visit Provider Urology
DX: N30.00 Acute cystitis without hematuria (principal)
CPT/HCPCS: 87077; 87086; 87088; 87186